=== PATIENT | female | born 1970 | race Caucasian/White ===

== ENCOUNTER 2017-12-15 21:32 | Inpatient (IN) | payer OTHER ==
[~2017-12-15] VITALS: Ht 167.6 cm; Wt 56.5 kg
[2017-12-15] MEDS ORDERED: POTASSIUM CHLORIDE 25 MEQ EFFERVESCENT TAB PO ONE (22:30)
[2017-12-15] MEDS ORDERED: ACETAMINOPHEN 325 MG TAB PO PRN (22:30)
[2017-12-15] MEDS ORDERED: SODIUM CHLORIDE 0.9% FLUSH 10 ML FLUSH IV FLUSH PRN (22:30)
[2017-12-15] MEDS ORDERED: guaiFENesin/DEXTROMETHORPHAN 200 MG/20 MG/10 ML CUP PO PRN (22:30)
[2017-12-15] MEDS ORDERED: RESP: ALBUTEROL 2.5 MG/IPRATROPIUM 0.5 MG NEB (PRN) INH (22:30)
[2017-12-15] MEDS ORDERED: HEPARIN SODIUM - SQ 10,000 UNITS/ML VIAL SQ SCH (23:00)
[2017-12-16] VITALS (24 sets, daily range): BP systolic 109–141; BP diastolic 54–70; PULSE 85–132; RESP 18–45; TEMP 98–98.6; O2SAT 94–100
[2017-12-16] MEDS ORDERED: CHLORHEXIDINE GLUCONATE 2 % 1 PACK (2 CLOTHS)(extra cloths) TOPICAL PRN (03:15)
[2017-12-16] MEDS: RESP: ALBUTEROL 2.5 MG/IPRATROPIUM 0.5 MG NEB (SCH) INH ×8 (03:33→22:00)
[2017-12-16] MEDS: NS + KCL 20 MEQ INJ 1,000 ML IV SCH ×2 (03:41→05:42)
[2017-12-16] MEDS: CHLORHEXIDINE GLUCONATE 2 % 1 PACK (2 CLOTHS)(taper/protocol) TOPICAL SCH (04:00)
[2017-12-16] MEDS ORDERED: KETOROLAC TROMETHAMINE 30 MG/ML (IVP) VIAL IV PUSH PRN (04:15)
--- NOTE | 2017-12-16 04:16 | HHI.HP ---
HPI Service [facility] Hospitalists Primary Care Physician No Primary Care Physician Admission Diagnosis Bilateral pneumonia, sepsis . Diagnoses: (1) Bilateral pneumonia (2) Sepsis (3) Anxiety Chief Complaint: Shortness of breath, chest pain Travel History International Travel<30 Days: No Contact w/Intl Traveler <30 Da: No History of Present Illness Ms. Guzman is a 47-year-old female with a history of anxiety who presented to the emergency room and [place] complaining of chest pain and shortness of breath for 4 days duration. Chest x-ray demonstrated bilateral patchy basilar airspace consolidation most consistent with bronchopneumonia. The patient also met sepsis criteria. She was initially going to be transferred to [facility] in [place], however, due to hypoxic respiratory failure requiring BiPAP, she was transferred to [facility] in [place] and [facility]. The patient is seen in IM. She is temporarily placed on nasal cannula and desaturates to 87 to 88% on 6 L of supplemental oxygen. She is then placed back on BiPAP. She tells me that she has been having chest pain and shortness of breath for the last 4 days. Her chest pain is worse with cough and is constantly there and moderate in severity. It does not come and go. She reports coughing up brown colored sputum which she relates to possibly being from drinking green tea. She states her shortness of breath became so severe that she presented to the emergency room for treatment. Review of Systems Except as stated in HPI: all other systems reviewed are Neg Past Family Social History Past Medical History Anxiety Denies DM, CAD, irregular heart rhythm, respiratory problems, asthma, emphysema , COPD, liver problems, kidney problems, DVT, PE, CVA, seizures, thyroid problems, or cancers . Past Surgical History Cholecystectomy Hysterectomy . Reported Medications Xanax 1 mg p.o. twice daily . Allergies: Coded Allergies: No Known Allergies (Unverified , 12/15/17) Family History Father with heart disease and pneumonia . Social History Tobacco: denies ever smoking Alcohol: does not currently drink Illicit drugs: smoked marijuana when she was younger . Physical Exam Vital Signs Vital Signs Date Time Temp Pulse Resp B/P (MAP) Pulse Ox O2 Delivery O2 Flow Rate FiO2 12/16/17 03:45 108 45 119/70 (86) 94 12/16/17 01:55 94 60 Physical Exam CONSTITUTIONAL: This is a thin, middle-aged female patient, tachypneic and wearing bi-pap. INTEGUMENTARY: No rashes, ecchymoses or lesions. Cool and dry. HEAD: Atraumatic. Normocephalic. No temporal or scalp tenderness. EYES: No scleral icterus. No injection or drainage. ENT: Nose without bleeding, purulent drainage or septal hematoma. NECK: Trachea midline. No JVD or lymphadenopathy. Supple, nontender, no meningeal signs. CARDIOVASCULAR: Regular rate and rhythm without murmurs, gallops, or rubs. RESPIRATORY: Diffuse sonorous rhonchi in upper airways with bibasilar crackles. GASTROINTESTINAL: Abdomen soft, non-tender, nondistended. No guarding. MUSCULOSKELETAL: Extremities without clubbing, cyanosis, or edema. No calf tenderness. NEUROLOGICAL: Awake and alert. Motor and sensory grossly within normal limits. Normal speech. PSYCHIATRIC: Appears quite anxious during visit. . Laboratory Laboratory Tests Test 12/15/17 20:00 12/15/17 21:50 White Blood Count 5.6 TH/MM3 Red Blood Count 5.37 MIL/MM3 Hemoglobin 16.1 GM/DL Hematocrit 45.1 % Mean Corpuscular Volume 84.0 FL Mean Corpuscular Hemoglobin 30.0 PG Mean Corpuscular Hemoglobin Concent 35.7 % Red Cell Distribution Width 12.0 % Platelet Count 185 TH/MM3 Mean Platelet Volume 10.1 FL Immature Granulocyte % (Auto) 0.2 % Neutrophils (%) (Auto) 83.9 % Lymphocytes (%) (Auto) 9.8 % Monocytes (%) (Auto) 5.9 % Eosinophils (%) (Auto) 0.0 % Basophils (%) (Auto) 0.2 % Immature Granulocyte # (Auto) 0.0 TH/MM3 Neutrophils # (Auto) 4.7 TH/MM3 Lymphocytes # (Auto) 0.6 TH/MM3 Monocytes # (Auto) 0.3 TH/MM3 Eosinophils # (Auto) 0.0 TH/MM3 Basophils # (Auto) 0.0 TH/MM3 CBC Comment AUTO DIFF Differential Total Cells Counted 100 Neutrophils % (Manual) 39 % Band Neutrophils % 41 % Lymphocytes % 13 % Monocytes % 3 % Neutrophils # (Manual) 4.7 TH/MM3 Metamyelocytes 3 % Myelocytes 1 % Differential Comment FINAL DIFF MANUAL Platelet Estimate NORMAL Platelet Morphology Comment NORMAL Blood Urea Nitrogen 6 MG/DL Creatinine 0.80 MG/DL Random Glucose 186 MG/DL Total Protein 7.7 GM/DL Albumin 3.2 GM/DL Calcium Level 8.5 MG/DL Alkaline Phosphatase 214 U/L Aspartate Amino Transf (AST/SGOT) 56 U/L Alanine Aminotransferase (ALT/SGPT) 88 U/L Total Bilirubin 0.9 MG/DL Sodium Level 136 MEQ/L Potassium Level 2.9 MEQ/L Chloride Level 101 MEQ/L Carbon Dioxide Level 25.0 MEQ/L Anion Gap 10 MEQ/L Estimat Glomerular Filtration Rate 77 ML/MIN Troponin I LESS THAN 0.02 NG/ML B-Type Natriuretic Peptide 66 PG/ML Lactic Acid Level 1.6 mmol/L Imaging Last Impressions Chest X-Ray 12/15/17 0000 Signed Impressions: Service Date/Time: Friday, December 15, 2017 19:54 - CONCLUSION: 1. Bilateral patchy basilar air space consolidation most characteristic of bronchopneumonia. Malachi Hardin MD . Caprini VTE Risk Assessment Caprini VTE Risk Assessment: Mod/High Risk (score >= 2) Caprini Risk Assessment Model Point Value = 1 Point Value = 2 Point Value = 3 Point Value = 5 Age 41-60 Minor surgery BMI > 25 kg/m2 Swollen legs Varicose veins or History of unexplained or recurrent spontaneous Oral contraceptives or hormone replacement Sepsis (< 1 month) Serious lung disease, including pneumonia (< 1 month) Abnormal pulmonary function Acute myocardial infarction Congestive heart failure (< 1 month) History of inflammatory bowel disease Medical patient at bed rest Age 61-74 Arthroscopic surgery Major open surgery (> 45 min) Laparoscopic surgery (> 45 min) Malignancy Confined to bed (> 72 hours) Immobilizing plaster cast Central venous access Age >= 75 History of VTE Family history of VTE Factor V Leiden Prothrombin [id number] Lupus anticoagulant Anticardiolipin antibodies Elevated serum homocysteine Heparin-induced thrombocytopenia Other congenital or acquired thrombophilia Stroke (< 1 month) Elective arthroplasty Hip, pelvis, or leg fracture Acute spinal cord injury (< 1 month) Prophylaxis Regimen Total Risk Factor Score Risk Level Prophylaxis Regimen 0-1 Low Early ambulation 2 Moderate Order ONE of the following: *Sequential Compression Device (SCD) *Heparin 5000 units SQ BID 3-4 Higher Order ONE of the following medications: *Heparin 5000 units SQ TID *Enoxaparin/Lovenox 40 mg SQ daily (WT < 150 kg, CrCl > 30 mL/min) *Enoxaparin/Lovenox 30 mg SQ daily (WT < 150 kg, CrCl > 10-29 mL/min) *Enoxaparin/Lovenox 30 mg SQ BID (WT < 150 kg, CrCl > 30 mL/min) AND/OR *Sequential Compression Device (SCD) 5 or more Highest Order ONE of the following medications: *Heparin 5000 units SQ TID (Preferred with Epidurals) *Enoxaparin/Lovenox 40 mg SQ daily (WT < 150 kg, CrCl > 30 mL/min) *Enoxaparin/Lovenox 30 mg SQ daily (WT < 150 kg, CrCl > 10-29 mL/min) *Enoxaparin/Lovenox 30 mg SQ BID (WT < 150 kg, CrCl > 30 mL/min) AND *Sequential Compression Device (SCD) Assessment and Plan Problem List: (1) Sepsis ICD Code: A41.9 - Sepsis, unspecified organism (2) Bilateral pneumonia ICD Code: J18.9 - Pneumonia, unspecified organism (3) Anxiety ICD Code: F41.9 - Anxiety disorder, unspecified Assessment and Plan Ms. Guzman is a 47-year-old female with a history of anxiety who presented to the emergency room and [place] complaining of chest pain and shortness of breath for 4 days duration. Chest x-ray demonstrated bilateral patchy basilar airspace consolidation most consistent with bronchopneumonia. The patient also met sepsis criteria. She was initially going to be transferred to [facility] in [place], however, due to hypoxic respiratory failure requiring BiPAP, she was transferred to [facility] in [place] and placed in ICU admitted to [facility] hospitalist group for medical management. Bilateral pneumonia Sepsis - CXR shows bilateral patchy basilar airspace consolidation most consistent with bronchopneumonia - WBC not elevated but patient with significant bandemia, tachycardia, hypoxia, and fever with known infection source - meets sepsis criteria - Negative for flu A&B - Antibiotics: Rocephin and Azithromycin IV - Continue BiPAP at current settings and titrate to maintain oxygen saturation greater than 92% - We will check ABGs - Duo nebulizers every 6 hours around the clock and every 4 hours as needed for wheezing/shortness of breath - Robitussin-DM 10 cc every 4 hours as needed for cough - Monitor vital signs every 4 hours - Initial lactic acid 2.2, 1.6 on recheck - Follow blood culture results and CBC Hypokalemia - Initial potassium 2.9 - IV fluid hydration with normal saline +20 cc of potassium at 125 cc an hour; replaced orally in [place] ED - Recheck BMP in a.m. and follow trends in potassium - Additional replacement is indicated - Continuous cardiac telemetry to monitor for arrhythmias Mild transaminitis of uncertain etiology - AST 56, ALT 88, alkaline phosphatase 214 - Recheck LFTs in a.m. and follow results - Consider hepatitis profile if persistently elevated Anxiety -Xanax 0.5 mg p.o. every 6 hours as needed for anxiety Hyperglycemia of uncertain significance - Initial blood glucose mildly elevated at 186 - Follow serum chemistry for glucose level in a.m. - Consider ordering a hemoglobin A1c - patient denies diabetes Atypical chest pain - musculoskeletal in nature - Initial troponin less than 0.02 and BNP was 66; minimal risk factors for CAD - Reproducible with palpation - Toradol 15 mg IV every 6 hours as needed for pain DVT prophylaxis -Heparin 5000 units subq every 8 hours . Discussed Condition With Dr. Santillan, RN, and patient . Physician Certification 2 Midnight Certification Type: Admission for Inpatient Services Order for Inpatient Services The services are ordered in accordance with Medicare regulations or non- Medicare payer requirements, as applicable. In the case of services not specified as inpatient-only, they are appropriately provided as inpatient services in accordance with the 2-midnight benchmark. Estimated LOS (days): 4 days is the estimated time the patient will need to remain in the hospital, assuming treatment plan goals are met and no additional complications. Post-Hospital Plan: Not yet determined Malina Maurice Dec 16, 2017 04:16
[2017-12-16] MEDS: ALPRAZolam 0.5 MG TAB PO PRN ×2 (04:44→10:48)
[2017-12-16 06:57] LABS: LACTIC ACID SEPSIS PROTOCOL 3.1 mmol/L (0.4-2.0)
[2017-12-16 06:58] LABS: AUTOMATED NEUTROPHIL # 5.6 TH/MM3 (1.8-7.7); BASOPHIL % 0.1 % (0.0-2.0); HEMATOCRIT 41.1 % (35.0-46.0); HEMOGLOBIN 14.4 GM/DL (11.6-15.3); LYMPH % 8.2 % (9.0-44.0); LYMPHOCYTE # 0.5 TH/MM3 (1.0-4.8); MEAN CELL VOLUME 86.6 FL (80.0-100.0); MEAN CORPUSCULAR HEMOGLOBIN 30.3 PG (27.0-34.0); MEAN CORPUSCULAR HGB CONC 34.9 % (32.0-36.0); MEAN PLATELET VOLUME 8.2 FL (7.0-11.0); MONOCYTE # 0.5 TH/MM3 (0-0.9); NEUT % 84.7 % (16.0-70.0); PLATELET COUNT 162 TH/MM3 (150-450); RED BLOOD COUNT 4.75 MIL/MM3 (4.00-5.30); RED CELL DISTRIBUTION WIDTH 12.9 % (11.6-17.2); WHITE BLOOD COUNT 6.6 TH/MM3 (4.0-11.0)
[2017-12-16 07:30] LABS: ALBUMIN 2.4 GM/DL (3.4-5.0); ALT (GPT) 59 U/L (10-53); AST (GOT) 28 U/L (15-37); BICARBONATE 23.4 MEQ/L (21.0-32.0); CALCIUM 7.8 MG/DL (8.5-10.1); CHLORIDE 108 MEQ/L (98-107); CREATININE 0.75 MG/DL (0.50-1.00); GLOMERULAR FILTRATION RATE 83 ML/MIN (>89); GLUCOSE,RANDOM 215 MG/DL (74-106); SODIUM (NA) 141 MEQ/L (136-145)
[2017-12-16 07:36] LABS: ALKALINE PHOSPHATASE 152 U/L (45-117); BLOOD UREA NITROGEN 5 MG/DL (7-18); TOTAL BILIRUBIN ADULT 0.8 MG/DL (0.2-1.0); TOTAL PROTEIN 6.1 GM/DL (6.4-8.2)
[2017-12-16] MEDS ORDERED: guaiFENesin E.R. 600 MG TAB PO SCH (09:15)
[2017-12-16] MEDS ORDERED: MORPHINE SULFATE 2 MG/ML SYRINGE IM PRN (09:15)
[2017-12-16 10:22] LABS: TROPONIN I LESS THAN 0.02 NG/ML (0.02-0.05)
[2017-12-16] MEDS: HEPARIN SODIUM - SQ 10,000 UNITS/ML VIAL SQ SCH ×2 (12:28→20:15)
[2017-12-16] MEDS: SODIUM CHLORIDE 0.9% FLUSH 10 ML FLUSH IV FLUSH SCH ×2 (12:29→20:16)
[2017-12-16] MEDS ORDERED: SODIUM CHLOR 0.9% 1000 ML INJ 1,000 ML IV ONE ×2 (14:00→15:00)
[2017-12-16] MEDS ORDERED: IOHEXOL 350 MG/ML 10 ML VIAL (for RAD DIAG) IVCONTRAST ONE (14:03)
[2017-12-16] MEDS ORDERED: Vancomycin Consult Pharmacy 1 EA OTHER PRN (14:15)
[2017-12-16] MEDS: CEFEPIME INJ 1,000 MG in SODIUM CHLORIDE 0.9% INJ 100 ML IV SCH ×2 (14:17→20:14)
--- NOTE | 2017-12-16 14:19 | RADRPT ---
EXAM DATE/TIME: 12/16/2017 13:49 [place] COMPARISON: No previous studies available for comparison. INDICATIONS : Shortness of breath, bilateral chest pain, cough. IV CONTRAST: 85 cc Omnipaque 350 (iohexol) IV RADIATION DOSE: 15.68 CTDIvol (mGy) MEDICAL HISTORY : Hypertension. SURGICAL HISTORY : Cholecystectomy. Hysterectomy. ENCOUNTER: Initial ACUITY: 1 day PAIN SCALE: 4/10 LOCATION: Bilateral lower chest TECHNIQUE: Volumetric scanning of the chest was performed using a pulmonary embolism protocol MIP images were re constructed. Using automated exposure control and adjustment of the mA and/or kV according to patien t size, radiation dose was kept as low as reasonably achievable to obtain optimal diagnostic quality images. DICOM format image data is available electronically for review and comparison. Follow-up recommendations for detected pulmonary nodules are based at a minimum on nodule size and pa tient risk factors according to Fleischner Society Guidelines. FINDINGS: There is extensive pneumomediastinum which dissects into the lower neck and upper chest. There is a s mall right pneumothorax. No definite left pneumothorax. There is dense consolidation at both lung bases with air bronchograms. They are also cavitary lesions involving the right upper lobe on image #38 measuring 71 cm in diameter in the superior segment left lower lobe on image 43 measuring about 1.8 cm in diameter. There is no significant pleural or pericardial effusion. There is peribronchial thickening and some d istal air way disease at the lung apices. No definite pulmonary embolic disease. No acute findings in the upper abdomen. CONCLUSION: 1. Negative for pulmonary emboli. 2. Dense consolidation in the lungs especially the lung bases with several cavitary lesions as above. Findings are most characteristic of pneumonia. Cannot exclude septic embolic disease. No significant effusion. Malachi Hardin MD on December 16, 2017 at 14:12 Board Certified Radiologist. This report was verified electronically.
--- NOTE | 2017-12-16 14:40 | MB ---
cc: Crystal Magdaleno MD DATE OF CONSULT: HISTORY OF PRESENT ILLNESS: Patient is a 47-year-old female with a history of anxiety disorder, who presented to emergency room at [place] with chest pain and shortness of breath for the past 4 days. Chest x-ray showed bilateral patchy basilar airspace consolidation consistent with bronchial pneumonia. She had elevated lactic acid level of 3.1. ABG from earlier this morning showed a pH of 7.43, CO2 of 31, PAO2 of 62, bicarb 20 and saturation 90% on BiPAP 15/5 with 60% FiO2. She had a repeat ABG on a partial rebreather, which showed hypoxemic respiratory failure. Her D-dimer was elevated at 5.70. Patient was admitted to [facility] ICU under the hospitalist service and pulmonary service was consulted for respiratory failure. When seen, she is tachypneic and tachycardic and is on partial rebreather oxygen. CT angiogram of the chest was ordered by the primary team to rule out pulmonary embolism. She was placed on bronchodilators and broad-spectrum antibiotics. She also reports cough with intermittent hemoptysis. The patient denies any constitutional symptoms. In addition, she denies any chest pain, orthopnea, PND of edema of the lower extremities. Also, she denies nausea, vomiting or any GI symptoms. She denies any exposure to sick contacts. PAST MEDICAL HISTORY: Significant for anxiety disorder. She denies any prior history of COPD, hypertension, coronary artery disease, diabetes mellitus or thromboembolism. PAST SURGICAL HISTORY: Previous cholecystectomy and hysterectomy. MEDICATIONS AT HOME: Xanax. ALLERGIES: NO KNOWN DRUG ALLERGIES. FAMILY HISTORY: Coronary artery disease runs in the family. SOCIAL HISTORY: Nonsmoker, nondrinker. REVIEW OF SYSTEMS: As per HPI. Rest of review of systems unremarkable. PHYSICAL EXAMINATION: GENERAL: A 47-year-old female lying in bed in [id number] respiratory distress. VITAL SIGNS: Temperature 98.6, pulse of 112, respiratory rate of 40s, blood pressure 132/62, saturation 95% on a partial rebreather. HEENT: Atraumatic, normocephalic. Pupils equal, round, reactive to light and accommodation. Extraocular muscles intact. Conjunctivae pink. Nonicteric sclerae. Oral mucosa within normal. NECK: Supple. No JVD, adenopathy or thyromegaly. Trachea in the midline. CARDIOVASCULAR: Tachycardic. Normal S1, S2. No murmurs, rubs or gallops noted. PULMONARY: Bilateral equal air entry with coarse breath sounds at the bases. ABDOMEN: Soft, nontender, no distention. Positive bowel sounds. EXTREMITIES: No cyanosis, clubbing or edema. NEUROLOGIC: No focal or sensory deficit. LABORATORY DATA: Sodium 141, potassium 3.7, chloride 108, CO2 of 23, BUN 5, creatinine 0.75, glucose 215. Lactic acid 3.1. Troponin less than 0.02, total CK 48, BNP 88. WBC 6.6, hemoglobin 14.4, hematocrit 41, platelet count 162. D-dimer 5.70. DIAGNOSTIC DATA: Chest x-ray on arrival showed bilateral patchy basilar airspace disease, characteristics of bronchial pneumonia. IMPRESSION: 1. Acute hypoxemic respiratory failure. 2. Bilateral bronchial pneumonia. 3. Elevated D-dimer. 4. Lactic acidemia. 5. Hyperglycemia. 6. Elevated ALT. 7. Anxiety disorder. RECOMMENDATIONS: 1. Will continue with oxygen and maintain saturation above 92%. 2. Bronchodilators in the form of DuoNeb q. 4 plus q. 2 p.r.n. for shortness of breath. 3. Patient is for CT angiogram of the chest to rule out PE and for further evaluation of the pulmonary parenchyma. 4. Monitor respiratory status closely. If there is any worsening in clinical condition, will need intubation and mechanical ventilation. 5. Continue with Iv fluids and will give NS 1 L bolus x 1. 6. Monitor heart rate and blood pressure. 7. Serial lactic acid monitoring until clear. 8. Continue with antibiotics. She was placed on cefepime and azithromycin. 9. Monitor for signs of infection, which include fever and WBC. 10. Check blood cultures x 2 sets, sputum culture with Gram stain. In addition, will obtain Step pneumonia and Legionella urinary antigen. 11. Check nasal washing to rule out influenza. 12. Continue other medical management per primary team. Further recommendations will be based on hospital course. MD WINNIE Washington/KIANNA , 02:02 PM , 02:40 PM
[2017-12-16] MEDS ORDERED: PROPOFOL 500 MG/50 ML INJ 50 ML ONE (14:44)
[2017-12-16] MEDS ORDERED: SUCCINYLCHOLINE CHLORIDE 100 MG/5 ML SYRINGE IV PUSH ONE (14:45)
[2017-12-16] MEDS ORDERED: fentaNYL CITRATE 250 MCG/5 ML AMP IV PUSH ONE (14:45)
[2017-12-16] MEDS ORDERED: PROPOFOL 200 MG/20 ML AMP IV ONE (14:45)
[2017-12-16] MEDS ORDERED: ROCURONIUM INJ 50 MG/5 ML VIAL IV ONE (14:45)
[2017-12-16] MEDS ORDERED: SUCCINYLCHOLINE CHLORIDE 200 MG/10 ML VIAL ONE (14:50)
[2017-12-16] MEDS ORDERED: RESP: ALBUTEROL 2.5 MG/IPRATROPIUM 0.5 MG NEB (PRN) NEB (15:00)
[2017-12-16] MEDS ORDERED: VANCOMYCIN INJ 1,000 MG in SODIUM CHLOR 0.9% 250 ML INJ 250 ML IV SCH (15:00)
--- NOTE | 2017-12-16 15:22 | PD.PROCEDR ---
Procedure Note Procedure Endotracheal Intubation Diagnosis: Acute hypoxemic respiratory failure Indications: Pneumonia, pneumothorax Consent: Emergent, discussed with patient Anesthesia: see MAR Description of the Procedure: The patient was positioned in the sniffing position. Pre-oxygenation was performed using a 100% BVM. Anesthesia was induced via rapid sequence. A Glidescope 3 was used for laryngoscopy and a Grade 1 view was obtained. A 8.0 cuffed endotracheal tube was inserted atraumatically through the vocal cords. Confirmation of correct endotracheal tube placement was made by equal and bilateral breath sounds and colorimetric CO2 detection. The endotracheal tube was secured at 23 cm at the teeth. There were no immediate complications noted. The patient remained hemodynamically stable throughout the procedure. A chest x-ray has been ordered. I personally performed the procedure. Vida Klein MD Dec 16, 2017 15:22
--- NOTE | 2017-12-16 15:37 | PD.CONS ---
[facility] Service Critical Care Medicine Consult Requested By Dr. Rogers Reason for Consult Acute hypoxic respiratory failure Primary Care Physician No Primary Care Physician History of Present Illness This is a 47-year-old female with a history of anxiety disorder, that presented to [place] on with complaints of chest pain and dyspnea that has been lasting for the past 4 days. The patient was transferred to [facility]. Imaging and laboratory studies were initially performed which showed a chest x-ray with bilateral patchy airspace consolidation consistent with bronchial pneumonia, and her lactic acid level was noted to be 3.1. The patient's oxygen requirements continue to increase the patient became tachypneic with a respiratory rate in the 40s and tachycardic, heart rate in the 120s. Pulmonology was consulted, CT was performed which revealed no pulmonary emboli , will several cavitary lesions, dense consolidation at both lung bases, air bronchograms and extensive pneumomediastinum extending into the lower neck and upper chest .ICU was requested to see patient. Upon observation the patient was severely dyspneic, with significant accessory muscle movement, violently coughing hemoptysis. Decision made to intubate patient for airway protection. Bronchoscopy pending. Review of Systems ROS 12 point review of systems done with the patient negative except for pertinent positives mentioned in the above history and physical Past Family Social History Allergies: Coded Allergies: No Known Allergies (Unverified , 12/15/17) Past Surgical History Cholecystectomy, hysterectomy Reported Medications Reviewed Active Ordered Medications see MAR Family History Coronary artery disease Social History Denies alcohol or illicit drug use. Reports that she smokes marijuana. Physical Exam Vital Signs Vital Signs Date Time Temp Pulse Resp B/P (MAP) Pulse Ox O2 Delivery O2 Flow Rate FiO2 12/16/17 12:00 112 12/16/17 12:00 98.6 112 43 133/62 (85) 95 12/16/17 11:11 96 60 12/16/17 10:52 47 12/16/17 10:00 99 12/16/17 08:00 97 60 12/16/17 08:00 106 12/16/17 07:00 98.0 106 45 141/62 (88) 96 12/16/17 06:00 98 12/16/17 06:00 98 12/16/17 05:45 99 12/16/17 05:30 97 12/16/17 05:15 102 12/16/17 05:00 112 12/16/17 04:45 110 12/16/17 04:15 105 12/16/17 04:15 105 12/16/17 04:00 113 12/16/17 04:00 113 12/16/17 03:45 108 45 119/70 (86) 94 12/16/17 03:45 108 12/16/17 03:45 108 12/16/17 01:55 94 60 Physical Exam GENERAL: This is a well-developed well-nourished female in severe respiratory distress, violently coughing continuously hemoptysis SKIN: Warm and dry. Febrile HEAD: Atraumatic. Normocephalic. EYES: Pupils equal and round. No scleral icterus. No injection or drainage. Pupils 3 mm and brisk ENT: No nasal bleeding or discharge. Mucous membranes pink and moist. Uvula midline. Mallampati classification 1 NECK: Trachea midline,no deviation noted. No JVD. CARDIOVASCULAR: Tachycardic rate, regular rhythm. RESPIRATORY: Significant accessory muscle use. Coarse rhonchi throughout. Breath sounds equal bilaterally. GASTROINTESTINAL: Abdomen soft, non-tender, nondistended. No guarding. Bowel sounds active MUSCULOSKELETAL: Extremities without clubbing, cyanosis, or edema. No obvious deformities. NEUROLOGICAL: GCS 15 Awake and alert. RASS 0. No gross focal/sensory deficits. Follows commands in all 4 extremities, prior to intubation Laboratory Laboratory Tests Test 12/16/17 01:30 12/16/17 04:52 12/16/17 06:05 12/16/17 09:33 Nasal Screen MRSA (PCR) MRSA DETECTED Blood Gas Puncture Site RT RADIAL Blood Gas Patient Temperature 98.6 Blood Gas HCO3 20 Blood Gas Base Excess -3.6 Blood Gas Oxygen Saturation 90 Arterial Blood pH 7.43 Arterial Blood Partial Pressure CO2 31 Arterial Blood Partial Pressure O2 62 Arterial Blood Oxygen Content 18.5 Arterial Blood Carboxyhemoglobin 0.5 Arterial Blood Methemoglobin 1.1 Blood Gas Hemoglobin 14.6 Oxygen Delivery Device BIPAP Blood Gas Ventilator Setting 15/5 Blood Gas Inspired Oxygen 60 White Blood Count 6.6 Red Blood Count 4.75 Hemoglobin 14.4 Hematocrit 41.1 Mean Corpuscular Volume 86.6 Mean Corpuscular Hemoglobin 30.3 Mean Corpuscular Hemoglobin Concent 34.9 Red Cell Distribution Width 12.9 Platelet Count 162 Mean Platelet Volume 8.2 Neutrophils (%) (Auto) 84.7 Lymphocytes (%) (Auto) 8.2 Monocytes (%) (Auto) 7.0 Eosinophils (%) (Auto) 0.0 Basophils (%) (Auto) 0.1 Neutrophils # (Auto) 5.6 Lymphocytes # (Auto) 0.5 Monocytes # (Auto) 0.5 Eosinophils # (Auto) 0.0 Basophils # (Auto) 0.0 CBC Comment DIFF FINAL Differential Comment Blood Urea Nitrogen 5 Creatinine 0.75 Random Glucose 215 Total Protein 6.1 Albumin 2.4 Calcium Level 7.8 Alkaline Phosphatase 152 Aspartate Amino Transf (AST/SGOT) 28 Alanine Aminotransferase (ALT/SGPT) 59 Total Bilirubin 0.8 Sodium Level 141 Potassium Level 3.7 Chloride Level 108 Carbon Dioxide Level 23.4 Anion Gap 10 Estimat Glomerular Filtration Rate 83 Lactic Acid Level 3.1 B-Type Natriuretic Peptide 88 D-Dimer Quantitative (PE/DVT) 5.70 Total Creatine Kinase 48 Troponin I LESS THAN 0.02 Test 12/16/17 11:15 12/16/17 13:12 Lactic Acid Level 3.1 Blood Gas Puncture Site LT RADIAL Blood Gas Patient Temperature 98.6 Blood Gas HCO3 21 Blood Gas Base Excess -2.7 Blood Gas Oxygen Saturation 90 Arterial Blood pH 7.46 Arterial Blood Partial Pressure CO2 30 Arterial Blood Partial Pressure O2 60 Arterial Blood Oxygen Content 17.5 Arterial Blood Carboxyhemoglobin 0.6 Arterial Blood Methemoglobin 1.1 Blood Gas Hemoglobin 13.9 Oxygen Delivery Device Partial Rebreather Blood Gas Liter Flow 15 Result Diagram: 12/16/17 0605 12/16/17 [address] Angiography 12/16/17 0000 Signed Impressions: Service Date/Time: Saturday, December 16, 2017 13:49 - CONCLUSION: 1. Negative for pulmonary emboli. 2. Dense consolidation in the lungs especially the lung bases with several cavitary lesions as above. Findings are most characteristic of pneumonia. Cannot exclude septic embolic disease. No significant effusion. Malachi Hardin MD Septic Shock Reassessment Septic shock perfusion: reassessment completed Assessment and Plan Problem List: (1) Anxiety ICD Code: F41.9 - Anxiety disorder, unspecified Status: Chronic (2) Sepsis ICD Code: A41.9 - Sepsis, unspecified organism Status: Acute (3) Bilateral pneumonia ICD Code: J18.9 - Pneumonia, unspecified organism Status: Acute Assessment and Plan Assessment This is a 47-year-old female in acute hypoxia respiratory failure , secondary to pneumonia , pulmonary cavitary lesions, and pneumomediastinum requiring intubation. The patient is critically ill. Plan by systems: Neurologic: Anxiety disorder Febrile illness Provide propofol and fentanyl infusions to maintain ventilator synchrony Daily sedation vacation until stable Temperature 102.0 Tylenol for fever, and pain 1-5 By mouth Xanax 0.25 mg, placed on hold Apply cooling blanket and Tylenol insufficient and patient's temperature continues to be elevated Respiratory: Acute hypoxemic respiratory failure Small right Pneumothorax Pneumomediastinum Hemoptysis Maintain O2 saturation greater than 92% Initial peak pressure on mechanical ventilation 31, continue to closely monitor Continue FiO2 at 100% currently 12/16 -CT Angio - extensive pneumomediastinum extending into neck and upper chest. Dense consolidation at both lung bases, air bronchograms , 2 cavitary lesions Ventilator bundle Duo nebs every 6 hours scheduled every 2 hours PRN Pulmonology following 12/16-bronchoscopy performed, no active sites noted for bleeding, moderate purulent mucus bilaterally noted 2 BAL samples sent Consult cardiothoracic surgery Cardiovascular: Sinus tachycardia-most likely secondary to sepsis Maintain MAP greater than 65mmHG-currently hemodynamically stable Provide vasopressor support if needed Follow-up cardiothoracic surgery recommendations Obtain echo in a.m. Renal: Insert [place] -- Strict I/Os FEN/GI: Maintain NPO status for now Patient bolused 2 L normal saline now NSS 84/hr Dietary consult for tube feeds Bowel regimen Zofran for nausea Famotidine GI prophylaxis Heme/ID: Monitor CBC Follow-up blood urine and sputum cultures Follow-up BAL cultures Obtained influenza, pneumococcal and Legionella antigens Empiric antibiotics initiated cefepime, azithromycin and vancomycin (day 1) ID consulted follow-up recommendations Obtain INR Serial lactates until cleared Endocrine: Glucose monitoring per ICU protocol-low dose regimen -- SSI Prophylaxis: GI Prophylaxis Famotidine IV DVT Prophylaxis -- SCDs Follow-up INR results-then initiate heparin SQ Lines: Peripheral IVs providing adequate access. Central line if indicated Dispo: my billing statement This patient remains critically ill with one or more organ systems which are or may become a threat to life. I have spent in excess of 60 minutes discontinuously in the care and management of this patient. This time is exclusive of procedures, and includes, but is not limited to, evaluation of the patient, review of the medical record, discussions with family, consultants, nursing staff, or respiratory therapy, and documentation in the medical record. Code Status Full Discussed Condition With Dr. Magdaleno, , patient and RN CVOR at bedside ( Cici Leger) Problem Qualifiers (1) Sepsis: Qualified Codes: A41.9 - Sepsis, unspecified organism Vida Klein MD Dec 16, 2017 15:37
[2017-12-16] MEDS: PROPOFOL 1000 MG/100 ML INJ 100 ML IV PRN (16:00)
[2017-12-16] MEDS ORDERED: VANCOMYCIN 1,500 MG/NS 500 ML IV ONE ×2 (16:00)
--- NOTE | 2017-12-16 16:03 | RADRPT ---
EXAM DATE/TIME: 12/16/2017 15:22 [facility] COMPARISON: No previous studies available for comparison. INDICATIONS : E-T tube placement. MEDICAL HISTORY : Hypertension. SURGICAL HISTORY : Cholecystectomy. Hysterectomy. ENCOUNTER: Initial ACUITY: 1 day PAIN SCORE: Non-responsive. LOCATION: Bilateral chest FINDINGS: Endotracheal tube in good position. There is extensive pneumomediastinum and air dissecting into the upper chest and lower neck. Dense consolidation at both lung bases and patchy airspace disease in the upper lungs. Mild cardiomegaly. No significant effusion. CONCLUSION: 1. Endotracheal tube in good position. Extensive pneumomediastinum. Dense consolidation in the lungs. Malachi Hardin MD on December 16, 2017 at 16:00 Board Certified Radiologist. This report was verified electronically.
--- NOTE | 2017-12-16 16:17 | PD.PROCEDR ---
Procedure Note Procedure Procedure: Fiberoptic Bronchoscopy Diagnosis: Acute hypoxemic respiratory failure, pneumonia, hemoptysis Indications: Same Consent: Emergent but obtained from patient, prior to intubation Anesthesia: Description of the Procedure: The patient was sedated and mechanically ventilated. The patient was placed on 100% FIO2 and a volume control mode of ventilation. The fiberoptic bronchoscopy was inserted via [ ]. The trachea, right and left mainstem bronchi, and sub-segmental bronchi were evaluated. The endobronchial anatomy was normal. Findings: No active sites of bleeding, purulent mucus, moderate BAL samples: 2 The patient tolerated the procedure well with no hemodynamic instability or hypoxia. There were no immediate complications noted. At the conclusion of the procedure, the patient was placed back on their pre-procedure ventilatory settings. There was minimal EBL. A chest x-ray has been ordered. I personally performed the procedure. Vida Klein MD Dec 16, 2017 16:17
[2017-12-16] MEDS ORDERED: ONDANSETRON HCL 4 MG/2 ML VIAL IV PUSH PRN (16:30)
[2017-12-16] MEDS: fentaNYL DRIP 250 ML IV PRN (16:30)
[2017-12-16] MEDS ORDERED: LACTULOSE SYRUP 20 GM/30 ML CUP PO PRN (16:45)
[2017-12-16] MEDS ORDERED: CHLORHEXIDINE GLUCONATE 2 % 1 PACK (2 CLOTHS) TOP PRN (16:45)
[2017-12-16] MEDS ORDERED: NURSING INFORMATION XX SCH (16:45)
[2017-12-16] MEDS ORDERED: MAGNESIUM HYDROXIDE SUSP 30 ML CUP PO PRN (16:45)
[2017-12-16] MEDS ORDERED: SENNOSIDES 8.6 MG TAB PO PRN (16:45)
[2017-12-16] MEDS ORDERED: BISACODYL 10 MG SUPP RECTAL PRN (16:45)
--- NOTE | 2017-12-16 16:58 | PD.CONS ---
History of Present Illness Service Infectious disease Consult Requested By Dr Magdaleno Reason for Consult Evaluate patient with pneumonia Primary Care Physician No Primary Care Physician Diagnoses: History of Present Illness Patient seen and examined. Records reviewed. Patient is a 47-year-old female, who initially presented to the [facility] ED complaining of 4 day history of chest pain and shortness of breath. In have any other history. She was apparently coughing and was bringing up some brownish phlegm. There was no mention of any fever or chills. No nausea or vomiting. No urinary complaints. Chest x-ray showed bilateral patchy basilar infiltrates. CTA did not show any pulmonary embolism, showed bilateral infiltrates with some cavitary lesions noted. She was transferred to the main hospital, and she apparently had some blood in the sputum. She ended up getting intubated. [facility] did bronchoscopy on her. Patient currently sedated postintubation. Her blood pressure is okay and she is not hypotensive. She is tachycardic. Infectious disease consultation has been requested to evaluate the patient with pneumonia Review of Systems ROS Limitations: Clinical Condition, Intubated Past Family Social History Allergies: Coded Allergies: No Known Allergies (Unverified , 12/15/17) Past Medical History Anxiety Past Surgical History Cholecystectomy Hysterectomy Active Ordered Medications Current Medications Medications (Trade) Dose Ordered Sig/Marily Route Start Time Stop Time Status Last Admin (NS Flush) 2 ml UNSCH PRN IV FLUSH 12/15/17 22:30 (NS Flush) 2 ml BID IV FLUSH 12/16/17 09:00 12/16/17 12:29 Azithromycin 500 mg/Sodium Chloride 250 ml @ 250 mls/hr Q24H IV 12/16/17 22:00 (Tylenol) 650 mg Q4H PRN PO 12/15/17 22:30 12/16/17 13:33 (Robitussin Dm 200-20 Mg/10 ml Liq) 10 ml Q4H PRN PO 12/15/17 22:30 Future Hold Potassium Chloride/Sodium Chloride 1,000 ml @ 100 mls/hr Q10H IV 12/15/17 23:00 12/16/17 03:41 Miscellaneous Information Patient in critical care unit? Ass... [id number] .XX 12/16/17 03:15 (Chlorhexidine 2% Cloth) 3 pack DAILY@04 TOPICAL 12/16/17 04:00 12/20/17 04:01 12/16/17 04:00 (Chlorhexidine 2% Cloth) 3 pack UNSCH PRN TOPICAL 12/16/17 03:15 12/21/17 03:14 (Toradol Inj) 15 mg Q6HR PRN IV PUSH 12/16/17 04:15 12/21/17 04:14 12/16/17 07:12 (Heparin Inj) 5,000 units Q8H SQ 12/16/17 12:00 12/16/17 12:28 (Morphine Inj) 1 mg Q4H PRN IM 12/16/17 09:15 Future Hold 12/16/17 10:11 (Duoneb Neb) 1 ampule Q4HR NEB INH 12/16/17 12:00 12/16/17 16:22 (Mucinex Er) 600 mg BID PO 12/16/17 09:15 Future Hold 12/16/17 10:51 Cefepime HCl 1000 mg/Sodium Chloride 100 ml @ 200 mls/hr Q8H IV 12/16/17 14:00 12/16/17 14:17 Pharmacy Profile Note 0 ml @ 0 mls/hr UNSCH PRN OTHER 12/16/17 14:15 Propofol 100 ml @ 2.1 mls/hr TITRATE PRN IV 12/16/17 14:45 Vancomycin HCl 1500 mg/Sodium Chloride 515 ml @ 257.5 mls/ hr Q12H ONCE IV 12/16/17 16:00 12/16/17 17:59 Miscellaneous Information SPECIFIC LAB TO BE ANABELLA... ONCE ONCE .XX 12/18/17 03:45 12/18/17 03:46 (Duoneb Neb) 1 ampule Q6HR NEB INH 12/16/17 15:00 (Duoneb Neb) 1 ampule Q2HR NEB PRN NEB 12/16/17 15:00 Fentanyl Citrate 250 ml @ 5 mls/hr TITRATE PRN IV 12/16/17 16:30 Sodium Chloride 1,000 ml @ 84 mls/hr [id number] IV 12/16/17 17:00 (Zofran Inj) 4 mg Q6HR PRN IV PUSH 12/16/17 16:30 (Pepcid Inj) 20 mg Q12H IV PUSH 12/16/17 17:00 Family History Unobtainable Social History Tobacco: denies ever smoking Alcohol: does not currently drink Illicit drugs: smoked marijuana when she was younger Physical Exam Vital Signs Vital Signs Date Time Temp Pulse Resp B/P (MAP) Pulse Ox O2 Delivery O2 Flow Rate FiO2 12/16/17 16:23 98 100 12/16/17 15:44 96 100 12/16/17 15:23 100 100 12/16/17 12:00 112 12/16/17 12:00 98.6 112 43 133/62 (85) 95 12/16/17 11:11 96 60 12/16/17 10:52 47 12/16/17 10:00 99 12/16/17 08:00 97 60 12/16/17 08:00 106 12/16/17 07:00 98.0 106 45 141/62 (88) 96 12/16/17 06:00 98 12/16/17 06:00 98 12/16/17 05:45 99 12/16/17 05:30 97 12/16/17 05:15 102 12/16/17 05:00 112 12/16/17 04:45 110 12/16/17 04:15 105 12/16/17 04:15 105 12/16/17 04:00 113 12/16/17 04:00 113 12/16/17 03:45 108 45 119/70 (86) 94 12/16/17 03:45 108 12/16/17 03:45 108 12/16/17 01:55 94 60 Physical Exam GENERAL: Patient is a well-nourished, well-developed female, sedated on the vent, not in respiratory distress. SKIN: Warm and dry. No generalized rash, no ecchymoses and no evidence of embolic lesions. HEAD: Atraumatic. Normocephalic. No temporal wasting, or tenderness. EYES: Agency conjunctiva. No petechia or hemorrhage. Pupils equal, round and reactive to light. No scleral icterus. No injection or drainage. EARS, NOSE AND THROAT: Nose without bleeding or purulent nasal discharge. She is orally intubated. Mucous membranes pink and moist. NECK: Trachea midline. Supple and not tender, no meningeal signs CARDIOVASCULAR: Regular rate and rhythm. No murmurs, rubs or gallops heard RESPIRATORY: Coarse breath sounds bilaterally, with scattered rales. No wheezing. ABDOMEN: Soft, non-tender, nondistended. Bowel sounds present and normoactive. No guarding. No rebound. No organomegaly. EXTREMITIES: No clubbing, cyanosis, or edema. No joint effusion, has good ROM. No calf tenderness. Well perfused and warm. NEUROLOGICAL: Sedated. No Babinski or ankle clonus. PSYCHIATRIC: Unable to assess LINE: No evidence of infection Laboratory Laboratory Tests Test 12/16/17 01:30 12/16/17 04:52 12/16/17 06:05 12/16/17 09:33 Nasal Screen MRSA (PCR) MRSA DETECTED Blood Gas Puncture Site RT RADIAL Blood Gas Patient Temperature 98.6 Blood Gas HCO3 20 Blood Gas Base Excess -3.6 Blood Gas Oxygen Saturation 90 Arterial Blood pH 7.43 Arterial Blood Partial Pressure CO2 31 Arterial Blood Partial Pressure O2 62 Arterial Blood Oxygen Content 18.5 Arterial Blood Carboxyhemoglobin 0.5 Arterial Blood Methemoglobin 1.1 Blood Gas Hemoglobin 14.6 Oxygen Delivery Device BIPAP Blood Gas Ventilator Setting 15/5 Blood Gas Inspired Oxygen 60 White Blood Count 6.6 Red Blood Count 4.75 Hemoglobin 14.4 Hematocrit 41.1 Mean Corpuscular Volume 86.6 Mean Corpuscular Hemoglobin 30.3 Mean Corpuscular Hemoglobin Concent 34.9 Red Cell Distribution Width 12.9 Platelet Count 162 Mean Platelet Volume 8.2 Neutrophils (%) (Auto) 84.7 Lymphocytes (%) (Auto) 8.2 Monocytes (%) (Auto) 7.0 Eosinophils (%) (Auto) 0.0 Basophils (%) (Auto) 0.1 Neutrophils # (Auto) 5.6 Lymphocytes # (Auto) 0.5 Monocytes # (Auto) 0.5 Eosinophils # (Auto) 0.0 Basophils # (Auto) 0.0 CBC Comment DIFF FINAL Differential Comment Blood Urea Nitrogen 5 Creatinine 0.75 Random Glucose 215 Total Protein 6.1 Albumin 2.4 Calcium Level 7.8 Alkaline Phosphatase 152 Aspartate Amino Transf (AST/SGOT) 28 Alanine Aminotransferase (ALT/SGPT) 59 Total Bilirubin 0.8 Sodium Level 141 Potassium Level 3.7 Chloride Level 108 Carbon Dioxide Level 23.4 Anion Gap 10 Estimat Glomerular Filtration Rate 83 Lactic Acid Level 3.1 B-Type Natriuretic Peptide 88 D-Dimer Quantitative (PE/DVT) 5.70 Total Creatine Kinase 48 Troponin I LESS THAN 0.02 Test 12/16/17 11:15 12/16/17 13:12 Lactic Acid Level 3.1 Blood Gas Puncture Site LT RADIAL Blood Gas Patient Temperature 98.6 Blood Gas HCO3 21 Blood Gas Base Excess -2.7 Blood Gas Oxygen Saturation 90 Arterial Blood pH 7.46 Arterial Blood Partial Pressure CO2 30 Arterial Blood Partial Pressure O2 60 Arterial Blood Oxygen Content 17.5 Arterial Blood Carboxyhemoglobin 0.6 Arterial Blood Methemoglobin 1.1 Blood Gas Hemoglobin 13.9 Oxygen Delivery Device Partial Rebreather Blood Gas Liter Flow 15 Result Diagram: 12/16/17 0605 12/16/17 0605 Imaging RADIOLOGY STUDIES/FILMS REVIEWED Chest X-Ray 12/16/17 0000 Signed Impressions: Service Date/Time: Saturday, December 16, 2017 15:22 - CONCLUSION: 1. Endotracheal tube in good position. Extensive pneumomediastinum. Dense consolidation in the lungs. Malachi Hardin MD CT Angiography 12/16/17 0000 Signed Impressions: Service Date/Time: Saturday, December 16, 2017 13:49 - CONCLUSION: 1. Negative for pulmonary emboli. 2. Dense consolidation in the lungs especially the lung bases with several cavitary lesions as above. Findings are most characteristic of pneumonia. Cannot exclude septic embolic disease. No significant effusion. Malachi Hardin MD Assessment and Plan Assessment and Plan IMPRESSION Sepsis present on admission Bilateral pneumonia, some with cavitation Respiratory failure RECOMMENDATION Urine for legio and pneumo Ag Check cultures: BC, sputum and urine Cefepime, Vanco and Zithromax Follow C/S and adjust Abx Monitor progress Will determine course of Abx ocne work-up and cultures completed I will follow along with you Thank you for this consultation Liliam Su MD Dec 16, 2017 16:58
--- NOTE | 2017-12-16 17:16 | RADRPT ---
EXAM DATE/TIME: 12/16/2017 16:35 [facility] COMPARISON: No previous studies available for comparison. INDICATIONS : Short of breath, POST bronch. MEDICAL HISTORY : Hypertension. SURGICAL HISTORY : Cholecystectomy. ENCOUNTER: Subsequent ACUITY: 2 days PAIN SCORE: 0/10 LOCATION: Bilateral chest FINDINGS: Basilar consolidation persists. Pneumomediastinum noted. No significant pneumothorax post bronchoscop y. Endotracheal tube unchanged. CONCLUSION: 1. No significant pneumothorax identified on plain film post bronchoscopy. Endotracheal tube and basi lar airspace disease not significantly changed. Malachi Hardin MD on December 16, 2017 at 17:13 Board Certified Radiologist. This report was verified electronically.
[2017-12-16 17:41] LABS: BILIRUBIN, URINE NEG (NEG); BLOOD, URINE TRACE (NEG); GLUCOSE,URINE TRACE mg/dL (NEG); KETONE, URINE NEG (NEG); NITRITE,URINE NEG (NEG); PH, URINE 6.5 (5.0-8.5); SQUAMOUS EPITHELIAL CELL URINE 1 /hpf (0-5); URINE COLOR YELLOW (YELLW/STRAW); URINE LEUKOCYTE ESTERASE NEG (NEG)
[2017-12-16 17:50] LABS: INTERNATIONAL NORMALIZED RATIO 1.1 RATIO; PROTHROMBIN TIME - PATIENT 11.4 SEC (9.8-11.6)
--- NOTE | 2017-12-16 18:03 | HHI.PR ---
Subjective Remarks This is a pleasant 47 y/o Female admitted today she has Anxiety disorder, came to ER due to Shortness of breath, Chest x-ray demonstrated bilateral patchy basilar airspace consolidation most consistent with bronchopneumonia. patient septic, respiratory failure, I was called by nurse the patient was on BiPAP and continue with desaturation. antibiotics changed to Cefepime and Azithromycin. discussed with Pulmonary and interactive media marketing specialist Doctor Sharla. will take the case from now, asked for blood cultures, Legionella antigen, Pneumococcal antigen, switch to Cefepime IV, consult sheepskin pickler and building performance specialist. Objective Vital Signs Date Time Temp Pulse Resp B/P (MAP) Pulse Ox O2 Delivery O2 Flow Rate FiO2 12/16/17 17:20 98 80 12/16/17 16:23 98 100 12/16/17 15:44 96 100 12/16/17 15:23 100 100 12/16/17 12:00 112 12/16/17 12:00 98.6 112 43 133/62 (85) 95 12/16/17 11:11 96 60 12/16/17 10:52 47 12/16/17 10:00 99 12/16/17 08:00 97 60 12/16/17 08:00 106 12/16/17 07:00 98.0 106 45 141/62 (88) 96 12/16/17 06:00 98 12/16/17 06:00 98 12/16/17 05:45 99 12/16/17 05:30 97 12/16/17 05:15 102 12/16/17 05:00 112 12/16/17 04:45 110 12/16/17 04:15 105 12/16/17 04:15 105 12/16/17 04:00 113 12/16/17 04:00 113 12/16/17 03:45 108 45 119/70 (86) 94 12/16/17 03:45 108 12/16/17 03:45 108 12/16/17 01:55 94 60 I/O 12/15/17 12/15/17 12/15/17 12/16/17 12/16/17 12/16/17 07:00 15:00 23:00 07:00 15:00 23:00 Output Total 500 ml Balance -500 ml Output Urine Total 500 ml # Bowel Movements 2 Result Diagram: 12/16/17 0605 12/16/17 0605 Imaging Last Impressions Chest X-Ray 12/16/17 0000 Signed Impressions: Service Date/Time: Saturday, December 16, 2017 16:35 - CONCLUSION: 1. No significant pneumothorax identified on plain film post bronchoscopy. Endotracheal tube and basilar airspace disease not significantly changed. Malachi Hardin MD CT Angiography 12/16/17 0000 Signed Impressions: Service Date/Time: Saturday, December 16, 2017 13:49 - CONCLUSION: 1. Negative for pulmonary emboli. 2. Dense consolidation in the lungs especially the lung bases with several cavitary lesions as above. Findings are most characteristic of pneumonia. Cannot exclude septic embolic disease. No significant effusion. Malachi Hardin MD Procedures BiPAP Other Results Laboratory Tests Test 12/16/17 01:30 12/16/17 06:05 12/16/17 09:33 12/16/17 13:12 Nasal Screen MRSA (PCR) MRSA DETECTED White Blood Count 6.6 TH/MM3 Red Blood Count 4.75 MIL/MM3 Hemoglobin 14.4 GM/DL Hematocrit 41.1 % Mean Corpuscular Volume 86.6 FL Mean Corpuscular Hemoglobin 30.3 PG Mean Corpuscular Hemoglobin Concent 34.9 % Red Cell Distribution Width 12.9 % Platelet Count 162 TH/MM3 Mean Platelet Volume 8.2 FL Neutrophils (%) (Auto) 84.7 % Lymphocytes (%) (Auto) 8.2 % Monocytes (%) (Auto) 7.0 % Eosinophils (%) (Auto) 0.0 % Basophils (%) (Auto) 0.1 % Neutrophils # (Auto) 5.6 TH/MM3 Lymphocytes # (Auto) 0.5 TH/MM3 Monocytes # (Auto) 0.5 TH/MM3 Eosinophils # (Auto) 0.0 TH/MM3 Basophils # (Auto) 0.0 TH/MM3 CBC Comment DIFF FINAL Differential Comment Blood Urea Nitrogen 5 MG/DL Creatinine 0.75 MG/DL Random Glucose 215 MG/DL Total Protein 6.1 GM/DL Albumin 2.4 GM/DL Calcium Level 7.8 MG/DL Alkaline Phosphatase 152 U/L Aspartate Amino Transf (AST/SGOT) 28 U/L Alanine Aminotransferase (ALT/SGPT) 59 U/L Total Bilirubin 0.8 MG/DL Sodium Level 141 MEQ/L Potassium Level 3.7 MEQ/L Chloride Level 108 MEQ/L Carbon Dioxide Level 23.4 MEQ/L Anion Gap 10 MEQ/L Estimat Glomerular Filtration Rate 83 ML/MIN B-Type Natriuretic Peptide 88 PG/ML D-Dimer Quantitative (PE/DVT) 5.70 MG/L FEU Total Creatine Kinase 48 U/L Troponin I LESS THAN 0.02 NG/ML Blood Gas Liter Flow 15 L/M Test 12/16/17 16:50 12/16/17 16:52 12/16/17 17:11 Urine Color YELLOW Urine Turbidity CLEAR Urine pH 6.5 Urine Specific [place] GREATER THAN 1.050 Urine Protein 30 mg/dL Urine Glucose (UA) TRACE mg/dL Urine Ketones NEG mg/dL Urine Occult Blood TRACE Urine Nitrite NEG Urine Bilirubin NEG Urine Urobilinogen LESS THAN 2.0 MG/DL Urine Leukocyte Esterase NEG Urine RBC 3 /hpf Urine WBC 1 /hpf Urine Squamous Epithelial Cells 1 /hpf Microscopic Urinalysis Comment CATH-CULT NOT IND Urine Opiates Screen NEG Urine Barbiturates Screen NEG Urine Amphetamines Screen NEG Urine Benzodiazepines Screen POS Urine Cocaine Screen NEG Urine Cannabinoids Screen POS Blood Gas Puncture Site LT RADIAL Blood Gas Patient Temperature 98.6 Blood Gas HCO3 20 mmol/L Blood Gas Base Excess -5.7 mmol/L Blood Gas Oxygen Saturation 96 % Arterial Blood pH 7.27 Arterial Blood Partial Pressure CO2 45 mmHg Arterial Blood Partial Pressure O2 123 mmHg Arterial Blood Oxygen Content 17.6 Vol % Arterial Blood Carboxyhemoglobin 0.2 % Arterial Blood Methemoglobin 1.2 % Blood Gas Hemoglobin 12.9 G/DL Oxygen Delivery Device VENTILATOR Blood Gas Ventilator Setting SEE COMMENTS Blood Gas Inspired Oxygen 100 % Prothrombin Time 11.4 SEC Prothromb Time International Ratio 1.1 RATIO Objective Remarks CONSTITUTIONAL: Moderate respiratory distress, speaking in full sentences. INTEGUMENTARY: No rashes, ecchymoses or lesions. Cool and dry. HEAD: Atraumatic. Normocephalic. No temporal or scalp tenderness. EYES: No scleral icterus. No injection or drainage. ENT: Nose without bleeding, purulent drainage or septal hematoma. NECK: Trachea midline. No JVD or lymphadenopathy. Supple, nontender, no meningeal signs. CARDIOVASCULAR: Regular rate and rhythm without murmurs, gallops, or rubs. RESPIRATORY: Decreased breath sounds bilateral, mild expiratory wheezing, bilateral base crackles. GASTROINTESTINAL: Abdomen soft, non-tender, nondistended. No guarding. MUSCULOSKELETAL: Extremities without clubbing, cyanosis, or edema. No calf tenderness. NEUROLOGICAL: Awake and alert. Motor and sensory grossly within normal limits. Normal speech. PSYCHIATRIC: Appears quite anxious during visit. . Medications and IVs Current Medications Medications (Trade) Dose Ordered Sig/Marily Route Start Time Stop Time Status Last Admin (NS Flush) 2 ml UNSCH PRN IV FLUSH 12/15/17 22:30 (NS Flush) 2 ml BID IV FLUSH 12/16/17 09:00 12/16/17 12:29 Azithromycin 500 mg/Sodium Chloride 250 ml @ 250 mls/hr Q24H IV 12/16/17 22:00 (Robitussin Dm 200-20 Mg/10 ml Liq) 10 ml Q4H PRN PO 12/15/17 22:30 Future Hold Potassium Chloride/Sodium Chloride 1,000 ml @ 100 mls/hr Q10H IV 12/15/17 23:00 12/16/17 03:41 (Chlorhexidine 2% Cloth) 3 pack DAILY@04 TOPICAL 12/16/17 04:00 12/20/17 04:01 12/16/17 04:00 (Toradol Inj) 15 mg Q6HR PRN IV PUSH 12/16/17 04:15 12/21/17 04:14 12/16/17 07:12 (Heparin Inj) 5,000 units Q8H SQ 12/16/17 12:00 12/16/17 12:28 (Morphine Inj) 1 mg Q4H PRN IM 12/16/17 09:15 Future Hold 12/16/17 10:11 (Duoneb Neb) 1 ampule Q4HR NEB INH 12/16/17 12:00 12/16/17 16:22 (Mucinex Er) 600 mg BID PO 12/16/17 09:15 Future Hold 12/16/17 10:51 Cefepime HCl 1000 mg/Sodium Chloride 100 ml @ 200 mls/hr Q8H IV 12/16/17 14:00 12/16/17 14:17 Pharmacy Profile Note 0 ml @ 0 mls/hr UNSCH PRN OTHER 12/16/17 14:15 Propofol 100 ml @ 2.1 mls/hr TITRATE PRN IV 12/16/17 14:45 Vancomycin HCl 1500 mg/Sodium Chloride 515 ml @ 257.5 mls/ hr Q12H ONCE IV 12/16/17 16:00 12/16/17 17:59 Miscellaneous Information SPECIFIC LAB TO BE ... ONCE ONCE .XX 12/18/17 03:45 12/18/17 03:46 (Duoneb Neb) 1 ampule Q6HR NEB INH 12/16/17 15:00 (Duoneb Neb) 1 ampule Q2HR NEB PRN NEB 12/16/17 15:00 Fentanyl Citrate 250 ml @ 5 mls/hr TITRATE PRN IV 12/16/17 16:30 Sodium Chloride 1,000 ml @ 84 mls/hr [id number] IV 12/16/17 17:00 (Zofran Inj) 4 mg Q6HR PRN IV PUSH 12/16/17 16:30 (Pepcid Inj) 20 mg Q12H IV PUSH 12/16/17 17:00 (Tylenol) 650 mg Q6H PRN PO 12/16/17 16:45 Miscellaneous Information 1 [id number] XX 12/16/17 16:45 (Chlorhexidine 2% Cloth) 3 pack Taper DAILY@04 TOP 12/17/17 04:00 12/13/18 03:59 (Chlorhexidine 2% Cloth) 3 pack UNSCH PRN TOP 12/16/17 16:45 (Florinda-Colace) 1 tab BID PO 12/16/17 21:00 (Milk Of Magnesia Liq) 30 ml Q12H PRN PO 12/16/17 16:45 (Senokot) 17.2 mg Q12H PRN PO 12/16/17 16:45 (Dulcolax Supp) 10 mg DAILY PRN RECTAL 12/16/17 16:45 (Lactulose Liq) 30 ml DAILY PRN PO 12/16/17 16:45 (Peridex 0.12% Liq) 15 ml BID@08,20 MT 12/16/17 20:00 Midazolam HCl 100 ml @ 2 mls/hr TITRATE PRN IV 12/16/17 17:30 A/P Assessment and Plan (1) Sepsis ICD Code: A41.9 - Sepsis, unspecified organism (2) Bilateral pneumonia ICD Code: J18.9 - Pneumonia, unspecified organism (3) Anxiety ICD Code: F41.9 - Anxiety disorder, unspecified Assessment and Plan Ms. Guzman is a 47-year-old female with a history of anxiety who presented to the emergency room and [place] complaining of chest pain and shortness of breath for 4 days duration. Chest x-ray demonstrated bilateral patchy basilar airspace consolidation most consistent with bronchopneumonia. The patient also met sepsis criteria. She was initially going to be transferred to [facility] in [place], however, due to hypoxic respiratory failure requiring BiPAP, she was transferred to [facility] in [place] and placed in ICU admitted to [facility] hospitalist group for medical management. Bilateral pneumonia Sepsis - CXR shows bilateral patchy basilar airspace consolidation most consistent with bronchopneumonia - WBC not elevated but patient with significant bandemia, tachycardia, hypoxia, and fever with known infection source - meets sepsis criteria - Negative for flu A&B - Antibiotics: Rocephin and Azithromycin IV - Continue BiPAP at current settings and titrate to maintain oxygen saturation greater than 92% - We will check ABGs - Duo nebulizers every 6 hours around the clock and every 4 hours as needed for wheezing/shortness of breath - Robitussin-DM 10 cc every 4 hours as needed for cough - Monitor vital signs every 4 hours - Initial lactic acid 2.2, 1.6 on recheck - Follow blood culture results and CBC - discussed with Pulmonary and video specialist Doctor Sharla due to the patient is worsening her condition, has Respiratory insufficiency asked to switch to Cefepime and Azithromycin, Consult sheepskin pickler, Consult building performance specialist, Legionella antigen, Pneumococcal antigen, Hypokalemia - Initial potassium 2.9 - IV fluid hydration with normal saline +20 cc of potassium at 125 cc an hour; replaced orally in [place] ED - Recheck BMP in a.m. and follow trends in potassium - Additional replacement is indicated - Continuous cardiac telemetry to monitor for arrhythmias Mild transaminitis of uncertain etiology - AST 56, ALT 88, alkaline phosphatase 214 - Recheck LFTs in a.m. and follow results - Consider hepatitis profile if persistently elevated Anxiety -Xanax 0.5 mg p.o. every 6 hours as needed for anxiety Hyperglycemia of uncertain significance - Initial blood glucose mildly elevated at 186 - Follow serum chemistry for glucose level in a.m. - Consider ordering a hemoglobin A1c - patient denies diabetes Atypical chest pain - musculoskeletal in nature - Initial troponin less than 0.02 and BNP was 66; minimal risk factors for CAD - Reproducible with palpation - Toradol 15 mg IV every 6 hours as needed for pain DVT prophylaxis -Heparin 5000 units subq every 8 hours . Discussed Condition With Patient, Nurse and Pulmonary and interactive media marketing specialist doctor Sharla. Discharge Planning transfer to Crime Scene Analyst management. Mina Fraser MD Dec 16, 2017 18:03
[2017-12-16 18:05] LABS: LACTIC ACID SEPSIS PROTOCOL 2.5 mmol/L (0.4-2.0)
[2017-12-16] MEDS: FAMOTIDINE 20 MG/2 ML VIAL IV PUSH SCH (19:36)
[2017-12-16] MEDS: CHLORHEXIDINE 0.12% (ORAL KIT) 15 ML CUP MT SCH (20:15)
[2017-12-16] MEDS: SODIUM CHLOR 0.9% 1000 ML INJ 1,000 ML IV SCH (20:15)
[2017-12-16] MEDS: MIDAZOLAM 100 MG/100 ML INJ 100 ML IV PRN (20:16)
[2017-12-16] MEDS: AZITHROMYCIN INJ 500 MG in SODIUM CHLOR 0.9% 250 ML INJ 250 ML IV SCH (20:17)
[2017-12-16] MEDS: DOCUSATE SODIUM 50 MG/SENNA 8.6 MG TAB PO SCH (20:17)
[2017-12-16] MEDS ORDERED: cefTRIAXone INJ 1,000 MG in SODIUM CHLORIDE 0.9% INJ 100 ML IV SCH (22:00)
[2017-12-17] VITALS (16 sets, daily range): BP systolic 98–109; BP diastolic 50–55; PULSE 96–114; RESP 15–24; TEMP 97.8–102.1; O2SAT 93–99
[2017-12-17] MEDS: RESP: ALBUTEROL 2.5 MG/IPRATROPIUM 0.5 MG NEB (SCH) INH ×10 (00:39→22:00)
[2017-12-17] MEDS: fentaNYL DRIP 250 ML IV PRN ×3 (02:34→20:44)
[2017-12-17 03:59] LABS: AUTOMATED NEUTROPHIL # 6.9 TH/MM3 (1.8-7.7); BASOPHIL % 0.1 % (0.0-2.0); EOSINOPHIL % 0.1 % (0.0-4.0); HEMATOCRIT 34.1 % (35.0-46.0); HEMOGLOBIN 11.7 GM/DL (11.6-15.3); LYMPH % 11.3 % (9.0-44.0); LYMPHOCYTE # 0.9 TH/MM3 (1.0-4.8); MEAN CELL VOLUME 88.1 FL (80.0-100.0); MEAN CORPUSCULAR HEMOGLOBIN 30.4 PG (27.0-34.0); MEAN CORPUSCULAR HGB CONC 34.5 % (32.0-36.0); MEAN PLATELET VOLUME 8.4 FL (7.0-11.0); MONO % 3.7 % (0.0-8.0); MONOCYTE # 0.3 TH/MM3 (0-0.9); NEUT % 84.8 % (16.0-70.0); PLATELET COUNT 160 TH/MM3 (150-450); RED BLOOD COUNT 3.86 MIL/MM3 (4.00-5.30); RED CELL DISTRIBUTION WIDTH 12.9 % (11.6-17.2); WHITE BLOOD COUNT 8.1 TH/MM3 (4.0-11.0)
[2017-12-17] MEDS: CHLORHEXIDINE GLUCONATE 2 % 1 PACK (2 CLOTHS)(taper/protocol) TOPICAL SCH (04:00)
[2017-12-17] MEDS: CHLORHEXIDINE GLUCONATE 2 % 1 PACK (2 CLOTHS) TOP SCH (04:00)
[2017-12-17 04:33] LABS: ALBUMIN 1.9 GM/DL (3.4-5.0); BICARBONATE 21.1 MEQ/L (21.0-32.0); CALCIUM-PROTEIN CORRECTED 7.9 MG/DL (8.5-10.1); CREATININE 0.59 MG/DL (0.50-1.00); MAGNESIUM 2.1 MG/DL (1.5-2.5); TOTAL BILIRUBIN ADULT 0.6 MG/DL (0.2-1.0); TOTAL PROTEIN 5.3 GM/DL (6.4-8.2)
[2017-12-17] MEDS: SODIUM CHLOR 0.9% 1000 ML INJ 1,000 ML IV SCH ×2 (04:55→16:19)
--- NOTE | 2017-12-17 05:16 | RADRPT ---
EXAM DATE/TIME: 12/17/2017 03:12 [place] COMPARISON: CHEST SINGLE AP, December 16, 2017, 16:35. INDICATIONS : Shortness of breath, possible pulmonary disease. MEDICAL HISTORY : Hypertension. SURGICAL HISTORY : Cholecystectomy. ENCOUNTER: Subsequent ACUITY: 3 days PAIN SCORE: Non-responsive. LOCATION: Bilateral chest FINDINGS: Bibasilar intralobular infiltrates have shown no significant change. No effusions. Heart is normal in size. Tip of the endotracheal tube 3 cm cephalad of the magdalena. The nasogastric tube courses off the inferior margin of the film. CONCLUSION: Unchanged bilateral infiltrates. Yomi Shipley Jr., MD on December 17, 2017 at 5:14 Board Certified Radiologist. This report was verified electronically.
[2017-12-17] MEDS: CEFEPIME INJ 1,000 MG in SODIUM CHLORIDE 0.9% INJ 100 ML IV SCH ×3 (06:00→20:44)
[2017-12-17] MEDS: MIDAZOLAM 100 MG/100 ML INJ 100 ML IV PRN ×2 (06:14→16:53)
[2017-12-17] MEDS: HEPARIN SODIUM - SQ 10,000 UNITS/ML VIAL SQ SCH ×3 (06:15→20:42)
[2017-12-17] MEDS: FAMOTIDINE 20 MG/2 ML VIAL IV PUSH SCH ×2 (06:15→16:52)
[2017-12-17] MEDS ORDERED: POTASSIUM PHOSPHATE MONOBASIC 500 MG TAB PO PRN (07:45)
[2017-12-17] MEDS ORDERED: MAGNESIUM OXIDE 400 MG TAB PO PRN (07:45)
[2017-12-17] MEDS ORDERED: POTASSIUM PHOSPHATE MONOBASIC 500 MG TAB PO/TUBE PRN (07:45)
[2017-12-17] MEDS ORDERED: POTASSIUM CHLOR 40 MEQ PREMIX 100 ML IV PRN (07:45)
[2017-12-17] MEDS ORDERED: MAGNESIUM SULFATE INJ 2 GM in SODIUM CHLORIDE 0.9% INJ 96 ML IV PRN (07:45)
[2017-12-17] MEDS ORDERED: POTASSIUM CHLORIDE 25 MEQ EFFERVESCENT TAB PO PRN (07:45)
[2017-12-17] MEDS ORDERED: POTASSIUM CHLOR 20 MEQ PREMIX 100 ML IV PRN (07:45)
[2017-12-17] MEDS ORDERED: POTASSIUM PHOSPHATE INJ 30 MMOL in SODIUM CHLOR 0.9% 250 ML INJ 250 ML IV PRN (07:45)
[2017-12-17] MEDS ORDERED: MAGNESIUM SULFATE INJ 4 GM in SODIUM CHLORIDE 0.9% INJ 92 ML IV PRN (07:45)
--- NOTE | 2017-12-17 07:52 | HHI.CCPN ---
Subjective Remarks/Hospital Course This is a 47-year-old female with a history of anxiety disorder, that presented to [place] on with complaints of chest pain and dyspnea that has been lasting for the past 4 days. The patient was transferred to [facility]. Imaging and laboratory studies were initially performed which showed a chest x-ray with bilateral patchy airspace consolidation consistent with bronchial pneumonia, and her lactic acid level was noted to be 3.1. The patient's oxygen requirements continue to increase the patient became tachypneic with a respiratory rate in the 40s and tachycardic, heart rate in the 120s. Pulmonology was consulted, CT was performed which revealed no pulmonary emboli , will several cavitary lesions, dense consolidation at both lung bases, air bronchograms and extensive pneumomediastinum extending into the lower neck and upper chest .ICU was requested to see patient. Upon observation the patient was severely dyspneic, with significant accessory muscle movement, violently coughing hemoptysis. Decision made to intubate patient for airway protection. 12/17 Patient is sedated with Diprivan and versed infusion. afebrile. s/p bronch yesterday by Dr. Klein. Objective Vital Signs Date Time Temp Pulse Resp B/P (MAP) Pulse Ox O2 Delivery O2 Flow Rate FiO2 12/17/17 07:25 98 40 12/17/17 04:00 97.8 106 21 105/54 (71) Intake and Output 12/17/17 12/17/17 12/18/17 08:00 16:00 00:00 Intake Total 1043 ml Output Total 650 ml Balance 393 ml Result Diagram: 12/17/17 0329 12/17/17 0329 Other Results Laboratory Tests Test 12/16/17 09:33 12/16/17 11:15 12/16/17 13:12 12/16/17 16:50 D-Dimer Quantitative (PE/DVT) 5.70 MG/L FEU Total Creatine Kinase 48 U/L Troponin I LESS THAN 0.02 NG/ML Lactic Acid Level 3.1 mmol/L Blood Gas Puncture Site LT RADIAL Blood Gas Patient Temperature 98.6 Blood Gas HCO3 21 mmol/L Blood Gas Base Excess -2.7 mmol/L Blood Gas Oxygen Saturation 90 % Arterial Blood pH 7.46 Arterial Blood Partial Pressure CO2 30 mmHg Arterial Blood Partial Pressure O2 60 mmHg Arterial Blood Oxygen Content 17.5 Vol % Arterial Blood Carboxyhemoglobin 0.6 % Arterial Blood Methemoglobin 1.1 % Blood Gas Hemoglobin 13.9 G/DL Oxygen Delivery Device Partial Rebreather Blood Gas Liter Flow 15 L/M Urine Color YELLOW Urine Turbidity CLEAR Urine pH 6.5 Urine Specific [place] GREATER THAN 1.050 Urine Protein 30 mg/dL Urine Glucose (UA) TRACE mg/dL Urine Ketones NEG mg/dL Urine Occult Blood TRACE Urine Nitrite NEG Urine Bilirubin NEG Urine Urobilinogen LESS THAN 2.0 MG/DL Urine Leukocyte Esterase NEG Urine RBC 3 /hpf Urine WBC 1 /hpf Urine Squamous Epithelial Cells 1 /hpf Microscopic Urinalysis Comment CATH-CULT NOT IND Urine Opiates Screen NEG Urine Barbiturates Screen NEG Urine Amphetamines Screen NEG Urine Benzodiazepines Screen POS Urine Cocaine Screen NEG Urine Cannabinoids Screen POS Test 12/16/17 16:52 12/16/17 17:11 12/16/17 23:12 12/17/17 01:28 Blood Gas Puncture Site LT RADIAL RT RADIAL Blood Gas Patient Temperature 98.6 98.6 Blood Gas HCO3 20 mmol/L 20 mmol/L Blood Gas Base Excess -5.7 mmol/L -4.5 mmol/L Blood Gas Oxygen Saturation 96 % 95 % Arterial Blood pH 7.27 7.36 Arterial Blood Partial Pressure CO2 45 mmHg 36 mmHg Arterial Blood Partial Pressure O2 123 mmHg 92 mmHg Arterial Blood Oxygen Content 17.6 Vol % 21.6 Vol % Arterial Blood Carboxyhemoglobin 0.2 % 0.3 % Arterial Blood Methemoglobin 1.2 % 1.1 % Blood Gas Hemoglobin 12.9 G/DL 16.1 G/DL Oxygen Delivery Device VENTILATOR VENTILATOR Blood Gas Ventilator Setting SEE COMMENTS SEE COMMENTS Blood Gas Inspired Oxygen 100 % 80 % Prothrombin Time 11.4 SEC Prothromb Time International Ratio 1.1 RATIO Lactic Acid Level 2.5 mmol/L 1.6 mmol/L Test 12/17/17 03:29 White Blood Count 8.1 TH/MM3 Red Blood Count 3.86 MIL/MM3 Hemoglobin 11.7 GM/DL Hematocrit 34.1 % Mean Corpuscular Volume 88.1 FL Mean Corpuscular Hemoglobin 30.4 PG Mean Corpuscular Hemoglobin Concent 34.5 % Red Cell Distribution Width 12.9 % Platelet Count 160 TH/MM3 Mean Platelet Volume 8.4 FL Neutrophils (%) (Auto) 84.8 % Lymphocytes (%) (Auto) 11.3 % Monocytes (%) (Auto) 3.7 % Eosinophils (%) (Auto) 0.1 % Basophils (%) (Auto) 0.1 % Neutrophils # (Auto) 6.9 TH/MM3 Lymphocytes # (Auto) 0.9 TH/MM3 Monocytes # (Auto) 0.3 TH/MM3 Eosinophils # (Auto) 0.0 TH/MM3 Basophils # (Auto) 0.0 TH/MM3 CBC Comment AUTO DIFF Blood Urea Nitrogen 10 MG/DL Creatinine 0.59 MG/DL Random Glucose 102 MG/DL Total Protein 5.3 GM/DL Albumin 1.9 GM/DL Calcium Level 7.0 MG/DL Phosphorus Level 1.0 MG/DL Magnesium Level 2.1 MG/DL Alkaline Phosphatase 96 U/L Aspartate Amino Transf (AST/SGOT) 23 U/L Alanine Aminotransferase (ALT/SGPT) 37 U/L Total Bilirubin 0.6 MG/DL Sodium Level 143 MEQ/L Potassium Level 3.8 MEQ/L Chloride Level 114 MEQ/L Carbon Dioxide Level 21.1 MEQ/L Anion Gap 8 MEQ/L Estimat Glomerular Filtration Rate 110 ML/MIN Lactic Acid Level 1.5 mmol/L Protein Corrected Calcium 7.9 MG/DL Imaging Last Impressions Chest X-Ray 12/17/17 0600 Signed Impressions: Service Date/Time: Sunday, December 17, 2017 03:12 - CONCLUSION: Unchanged bilateral infiltrates. Yomi Shipley Jr., MD CT Angiography 12/16/17 0000 Signed Impressions: Service Date/Time: Saturday, December 16, 2017 13:49 - CONCLUSION: 1. Negative for pulmonary emboli. 2. Dense consolidation in the lungs especially the lung bases with several cavitary lesions as above. Findings are most characteristic of pneumonia. Cannot exclude septic embolic disease. No significant effusion. Malachi Hardin MD Objective Remarks GENERAL: Patient is 47 yo intubated and sedated SKIN: Warm and dry. HEAD: Normocephalic. EYES: No scleral icterus. No injection or drainage. NECK: Supple, trachea midline. No JVD or lymphadenopathy. CARDIOVASCULAR: Regular rate and rhythm without murmurs, gallops, or rubs. RESPIRATORY: Breath sounds equal bilaterally. No accessory muscle use. GASTROINTESTINAL: Abdomen soft, non-tender, nondistended. MUSCULOSKELETAL: No cyanosis, or edema. Neuro: sedated A/P Problem List: (1) Anxiety ICD Code: F41.9 - Anxiety disorder, unspecified Status: Chronic (2) Sepsis ICD Code: A41.9 - Sepsis, unspecified organism Status: Acute (3) Bilateral pneumonia ICD Code: J18.9 - Pneumonia, unspecified organism Status: Acute Assessment and Plan Assessment This is a 47-year-old female in acute hypoxia respiratory failure , secondary to pneumonia , pulmonary cavitary lesions, and pneumomediastinum requiring intubation. The patient is critically ill. Plan by systems: Neurologic: Anxiety disorder Propofol and fentanyl infusions for sedation and ventilator synchrony Daily sedation vacation when stable UDS: + benzos, cannabinoids Tylenol for fever, and pain 1-5 Respiratory: Acute hypoxemic respiratory failure Small right Pneumothorax Pneumomediastinum Hemoptysis Continue with vent support keep sats >92%. Wean FIO2 as sharyn. CXR today- b/l pulm infiltrates, no PTX 12/16 -CT Angio - extensive pneumomediastinum extending into neck and upper chest. Dense consolidation at both lung bases, air bronchograms , 2 cavitary lesions Ventilator bundle Duo nebs every 6 hours scheduled every 2 hours PRN Pulmonology following 12/16-bronchoscopy performed by Dr. Klein, no active sites noted for bleeding, moderate purulent mucus bilaterally noted 2 BAL samples sent CTS consulted for Pneumomediastinum Cardiovascular: Sinus tachycardia Monitor HR and BP keep MAP>65mmHg Lactic acid 1.5 Renal: Monitor renal function, electrolytes replacement per protocol. Will need Phos replacement today GI: Start tube feeds- Glucerna 1.5 with goal rate 45ml/hr Famotidine GI prophylaxis ID: Gram positive Bacteremia Monitor CBC Follow-up blood urine and sputum cultures Follow-up BAL cultures Obtained influenza, pneumococcal and Legionella antigens- pending Continue abx cefepime, azithromycin and vancomycin , ID is following ID consulted follow-up recommendations Heme: Monitor CBC Endocrine: Glucose monitoring per ICU protocol-low dose regimen -- SSI Prophylaxis: GI Prophylaxis Famotidine IV DVT Prophylaxis -- SCDs -heparin SQ Lines: Peripheral IVs providing adequate access. Central line if indicated Level 3 Problem Qualifiers (1) Sepsis: Qualified Codes: A41.9 - Sepsis, unspecified organism Crystal Magdaleno MD Dec 17, 2017 07:52
[2017-12-17] MEDS: DOCUSATE SODIUM 50 MG/SENNA 8.6 MG TAB PO SCH ×2 (08:37→20:43)
[2017-12-17] MEDS: SODIUM CHLORIDE 0.9% FLUSH 10 ML FLUSH IV FLUSH SCH ×2 (08:38→20:43)
[2017-12-17 09:32] LABS: BANDS 39 % (0-6); LYMPHOCYTES 11 % (9-44); MONOCYTES 2 % (0-8); PLASMA CELLS 1 % (0-0); POLYS (SEG NEUTROPHILS) 47 % (16-70)
[2017-12-17 09:33] LABS: DOHLE BODIES PRESENT (NONE SEEN); TOXIC GRANULATION 1+ (NORMAL)
[2017-12-17] MEDS: ACETAMINOPHEN 325 MG TAB PO PRN (09:37)
[2017-12-17] MEDS: SODIUM PHOSPHATE INJ 30 MMOL in SODIUM CHLOR 0.9% 250 ML INJ 240 ML IV PRN (09:38)
[2017-12-17] MEDS: CHLORHEXIDINE 0.12% (ORAL KIT) 15 ML CUP MT SCH ×2 (09:39→20:00)
--- NOTE | 2017-12-17 10:26 | HHI.IDPN ---
Subjective Subjective Remarks Patient is a 47-year-old female, who initially presented to the [facility] ED complaining of 4 day history of chest pain and shortness of breath. In have any other history. She was apparently coughing and was bringing up some brownish phlegm. There was no mention of any fever or chills. No nausea or vomiting. No urinary complaints. Chest x-ray showed bilateral patchy basilar infiltrates. CTA did not show any pulmonary embolism, showed bilateral infiltrates with some cavitary lesions noted. She was transferred to the main hospital, and she apparently had some blood in the sputum. She ended up getting intubated. [facility] did bronchoscopy on her. Patient currently sedated postintubation. Her blood pressure is okay and she is not hypotensive. She is tachycardic. Infectious disease consultation has been requested to evaluate the patient with pneumonia Notes reviewed Discussed with ARBEN Maurer up to 102 this morning BP okay, not on pressors Sedated on the vent FiO2 at 40% Awakens easily Blood culture from [place] with gram-positive cocci in clusters Blood cultures here are pending Sputum pending Chest x-ray stable infiltrates Antibiotics Current Medications Cefepime Zithromax Vanco yesterday Medications (Trade) Dose Ordered Sig/Marily Route Start Time Stop Time Status Last Admin (NS Flush) 2 ml UNSCH PRN IV FLUSH 12/15/17 22:30 (NS Flush) 2 ml BID IV FLUSH 12/16/17 09:00 12/16/17 20:16 Azithromycin 500 mg/Sodium Chloride 250 ml @ 250 mls/hr Q24H IV 12/16/17 22:00 12/16/17 20:17 (Robitussin Dm 200-20 Mg/10 ml Liq) 10 ml Q4H PRN PO 12/15/17 22:30 Future Hold (Chlorhexidine 2% Cloth) 3 pack DAILY@04 TOPICAL 12/16/17 04:00 12/20/17 04:01 12/17/17 04:00 (Toradol Inj) 15 mg Q6HR PRN IV PUSH 12/16/17 04:15 12/21/17 04:14 12/16/17 07:12 (Heparin Inj) 5,000 units Q8H SQ 12/16/17 12:00 12/17/17 06:15 (Morphine Inj) 1 mg Q4H PRN IM 12/16/17 09:15 Future Hold 12/16/17 10:11 (Duoneb Neb) 1 ampule Q4HR NEB INH 12/16/17 12:00 12/17/17 07:25 (Mucinex Er) 600 mg BID PO 12/16/17 09:15 Future Hold 12/16/17 10:51 Cefepime HCl 1000 mg/Sodium Chloride 100 ml @ 200 mls/hr Q8H IV 12/16/17 14:00 12/17/17 06:00 Pharmacy Profile Note 0 ml @ 0 mls/hr UNSCH PRN OTHER 12/16/17 14:15 Propofol 100 ml @ 2.1 mls/hr TITRATE PRN IV 12/16/17 14:45 12/16/17 16:00 Miscellaneous Information SPECIFIC LAB TO BE ANABELLA... ONCE ONCE .XX 12/18/17 03:45 12/18/17 03:46 (Duoneb Neb) 1 ampule Q6HR NEB INH 12/16/17 15:00 12/16/17 19:41 (Duoneb Neb) 1 ampule Q2HR NEB PRN NEB 12/16/17 15:00 Fentanyl Citrate 250 ml @ 5 mls/hr TITRATE PRN IV 12/16/17 16:30 12/17/17 02:34 Sodium Chloride 1,000 ml @ 84 mls/hr [id number] IV 12/16/17 17:00 12/16/17 20:15 (Zofran Inj) 4 mg Q6HR PRN IV PUSH 12/16/17 16:30 (Pepcid Inj) 20 mg Q12H IV PUSH 12/16/17 17:00 12/17/17 06:15 (Tylenol) 650 mg Q6H PRN PO 12/16/17 16:45 12/17/17 09:37 Miscellaneous Information 1 Q361D XX 12/16/17 16:45 (Chlorhexidine 2% Cloth) 3 pack Taper DAILY@04 TOP 12/17/17 04:00 12/13/18 03:59 12/17/17 04:00 (Chlorhexidine 2% Cloth) 3 pack UNSCH PRN TOP 12/16/17 16:45 (Florinda-Colace) 1 tab BID PO 12/16/17 21:00 (Milk Of Magnesia Liq) 30 ml Q12H PRN PO 12/16/17 16:45 (Senokot) 17.2 mg Q12H PRN PO 12/16/17 16:45 (Dulcolax Supp) 10 mg DAILY PRN RECTAL 12/16/17 16:45 (Lactulose Liq) 30 ml DAILY PRN PO 12/16/17 16:45 (Peridex 0.12% Liq) 15 ml BID@08,20 MT 12/16/17 20:00 12/17/17 09:39 Midazolam HCl 100 ml @ 2 mls/hr TITRATE PRN IV 12/16/17 17:30 12/17/17 06:14 Potassium Chloride 100 ml @ 50 mls/hr Q2H PRN IV 12/17/17 07:45 Potassium Chloride 100 ml @ 50 mls/hr Q2H PRN IV 12/17/17 07:45 (K-Lyte Cl Eff) 50 meq UNSCH PRN PO 12/17/17 07:45 Potassium Chloride 100 ml @ 25 mls/hr UNSCH PRN IV 12/17/17 07:45 Potassium Chloride 100 ml @ 50 mls/hr Q2H PRN IV 12/17/17 07:45 Magnesium Sulfate 4 gm/Sodium Chloride 100 ml @ 50 mls/hr UNSCH PRN IV 12/17/17 07:45 (Mag-Ox) 800 mg UNSCH PRN PO 12/17/17 07:45 Magnesium Sulfate 2 gm/Sodium Chloride 100 ml @ 50 mls/hr UNSCH PRN IV 12/17/17 07:45 (K-Phos) 2,000 mg Q4H PRN PO 12/17/17 07:45 Sodium Phosphate 30 mmol/Sodium Chloride 250 ml @ 42 mls/hr UNSCH PRN IV 12/17/17 07:45 12/17/17 09:38 (K-Phos) 2,000 mg UNSCH PRN PO/TUBE 12/17/17 07:45 Potassium Phosphate 30 mmol/ Sodium Chloride 260 ml @ 42 mls/hr UNSCH PRN IV 12/17/17 07:45 Lines PIV Past Medical History Anxiety Past Surgical History Cholecystectomy Hysterectomy Allergies: Coded Allergies: No Known Allergies (Unverified , 12/15/17) Objective . Vital Signs Date Time Temp Pulse Resp B/P (MAP) Pulse Ox O2 Delivery O2 Flow Rate FiO2 12/17/17 08:00 102.1 103 21 103/50 (67) 94 12/17/17 08:00 103 12/17/17 08:00 60 12/17/17 07:25 98 40 12/17/17 04:02 97 60 12/17/17 04:00 97.8 106 21 105/54 (71) 98 12/17/17 04:00 60 12/17/17 00:39 99 70 12/17/17 00:00 97.9 109 22 109/55 (73) 99 12/17/17 00:00 70 12/16/17 20:46 100 80 12/16/17 20:00 80 12/16/17 20:00 98.0 85 24 109/54 (72) 100 12/16/17 18:00 80 12/16/17 18:00 91 12/16/17 17:20 98 80 12/16/17 16:23 98 100 12/16/17 16:00 98.4 101 18 123/59 (80) 98 12/16/17 16:00 101 12/16/17 16:00 80 12/16/17 15:44 96 100 12/16/17 15:23 100 100 12/16/17 14:00 132 12/16/17 12:00 112 12/16/17 12:00 98.6 112 43 133/62 (85) 95 12/16/17 11:11 96 60 12/16/17 10:52 47 . Laboratory Tests Test 12/16/17 06:05 12/17/17 03:29 White Blood Count 6.6 TH/MM3 8.1 TH/MM3 Red Blood Count 4.75 MIL/MM3 3.86 MIL/MM3 Hemoglobin 14.4 GM/DL 11.7 GM/DL Hematocrit 41.1 % 34.1 % Mean Corpuscular Volume 86.6 FL 88.1 FL Mean Corpuscular Hemoglobin 30.3 PG 30.4 PG Mean Corpuscular Hemoglobin Concent 34.9 % 34.5 % Red Cell Distribution Width 12.9 % 12.9 % Platelet Count 162 TH/MM3 160 TH/MM3 Mean Platelet Volume 8.2 FL 8.4 FL Neutrophils (%) (Auto) 84.7 % 84.8 % Lymphocytes (%) (Auto) 8.2 % 11.3 % Monocytes (%) (Auto) 7.0 % 3.7 % Eosinophils (%) (Auto) 0.0 % 0.1 % Basophils (%) (Auto) 0.1 % 0.1 % Neutrophils # (Auto) 5.6 TH/MM3 6.9 TH/MM3 Lymphocytes # (Auto) 0.5 TH/MM3 0.9 TH/MM3 Monocytes # (Auto) 0.5 TH/MM3 0.3 TH/MM3 Eosinophils # (Auto) 0.0 TH/MM3 0.0 TH/MM3 Basophils # (Auto) 0.0 TH/MM3 0.0 TH/MM3 CBC Comment DIFF FINAL AUTO DIFF Differential Comment FINAL DIFF MANUAL Differential Total Cells Counted 100 Neutrophils % (Manual) 47 % Band Neutrophils % 39 % Lymphocytes % 11 % Monocytes % 2 % Neutrophils # (Manual) 7.0 TH/MM3 Plasma Cells 1 % Toxic Granulation 1+ Dohle Bodies PRESENT Platelet Estimate NORMAL Platelet Morphology Comment NORMAL Red Cell Morphology Comment NORMAL Laboratory Tests Test 12/16/17 06:05 12/16/17 09:33 12/16/17 11:15 12/16/17 17:11 Blood Urea Nitrogen 5 MG/DL Creatinine 0.75 MG/DL Random Glucose 215 MG/DL Total Protein 6.1 GM/DL Albumin 2.4 GM/DL Calcium Level 7.8 MG/DL Alkaline Phosphatase 152 U/L Aspartate Amino Transf (AST/SGOT) 28 U/L Alanine Aminotransferase (ALT/SGPT) 59 U/L Total Bilirubin 0.8 MG/DL Sodium Level 141 MEQ/L Potassium Level 3.7 MEQ/L Chloride Level 108 MEQ/L Carbon Dioxide Level 23.4 MEQ/L Anion Gap 10 MEQ/L Estimat Glomerular Filtration Rate 83 ML/MIN Lactic Acid Level 3.1 mmol/L 3.1 mmol/L 2.5 mmol/L B-Type Natriuretic Peptide 88 PG/ML Total Creatine Kinase 48 U/L Troponin I LESS THAN 0.02 NG/ML Test 12/17/17 01:28 12/17/17 03:29 Lactic Acid Level 1.6 mmol/L 1.5 mmol/L Blood Urea Nitrogen 10 MG/DL Creatinine 0.59 MG/DL Random Glucose 102 MG/DL Total Protein 5.3 GM/DL Albumin 1.9 GM/DL Calcium Level 7.0 MG/DL Phosphorus Level 1.0 MG/DL Magnesium Level 2.1 MG/DL Alkaline Phosphatase 96 U/L Aspartate Amino Transf (AST/SGOT) 23 U/L Alanine Aminotransferase (ALT/SGPT) 37 U/L Total Bilirubin 0.6 MG/DL Sodium Level 143 MEQ/L Potassium Level 3.8 MEQ/L Chloride Level 114 MEQ/L Carbon Dioxide Level 21.1 MEQ/L Anion Gap 8 MEQ/L Estimat Glomerular Filtration Rate 110 ML/MIN Protein Corrected Calcium 7.9 MG/DL Microbiology Date/Time Source Procedure Growth Status 12/16/17 17:11 Blood Peripheral Aerobic Blood Culture Pending Received 12/16/17 17:11 Blood Peripheral Anaerobic Blood Culture Pending Received 12/16/17 17:06 Blood Peripheral Aerobic Blood Culture Pending Received 12/16/17 17:06 Blood Peripheral Anaerobic Blood Culture Pending Received 12/16/17 15:50 Mini Bronchoalveolar Lavage Pending Resulted 12/16/17 15:50 Mini Bronchoalveolar Lavage Gram Stain - Final Resulted 12/16/17 15:50 Mini Bronchoalveolar Lavage Bronchoalveolar Lavage Culture Pending Resulted 12/16/17 16:50 Urine Clean Catch Streptococcus pneumoniae Antigen (M - Final PRESUMPTIVE NEGATIVE FOR STREPTOCOCCU... Complete 12/16/17 16:50 Urine Random Urine Legionella Antigen - Final PRESUMPTIVE NEGATIVE FOR LEGIONELLA P... Complete Imaging Chest X-Ray 12/17/17 0600 Signed Impressions: Service Date/Time: Sunday, December 17, 2017 03:12 - CONCLUSION: Unchanged bilateral infiltrates. Yomi Shipley Jr., MD Chest X-Ray 12/16/17 0000 Signed Impressions: Service Date/Time: Saturday, December 16, 2017 16:35 - CONCLUSION: 1. No significant pneumothorax identified on plain film post bronchoscopy. Endotracheal tube and basilar airspace disease not significantly changed. Malachi Hardin MD Chest X-Ray 12/16/17 0000 Signed Impressions: Service Date/Time: Saturday, December 16, 2017 15:22 - CONCLUSION: 1. Endotracheal tube in good position. Extensive pneumomediastinum. Dense consolidation in the lungs. Malachi Hardin MD CT Angiography 12/16/17 0000 Signed Impressions: Service Date/Time: Saturday, December 16, 2017 13:49 - CONCLUSION: 1. Negative for pulmonary emboli. 2. Dense consolidation in the lungs especially the lung bases with several cavitary lesions as above. Findings are most characteristic of pneumonia. Cannot exclude septic embolic disease. No significant effusion. Malachi Hardin MD Physical Exam GENERAL: Sedated, but awakens easily and follows commands, on the vent, NAD. SKIN: Warm and dry. No generalized rash, no ecchymoses and no evidence of embolic lesions. HEAD: Atraumatic. Normocephalic. No temporal wasting, or tenderness. EYES: [place] conjunctiva. No petechia or hemorrhage. Pupils equal, round and reactive to light. No scleral icterus. No injection or drainage. EARS, NOSE AND THROAT: Nose without bleeding or purulent nasal discharge. She is orally intubated. Mucous membranes pink and moist. NECK: Trachea midline. Supple and not tender, no meningeal signs CARDIOVASCULAR: Regular rate and rhythm. No murmurs, rubs or gallops heard RESPIRATORY: Coarse breath sounds bilaterally ABDOMEN: Soft, non-tender, nondistended. Bowel sounds present and normoactive. No guarding. No rebound. No organomegaly. EXTREMITIES: No clubbing, cyanosis, or edema. No joint effusion, has good ROM. No calf tenderness. Well perfused and warm. NEUROLOGICAL: Nonfocal, awakens easily PSYCHIATRIC: Calm and cooperative LINE: No evidence of infection Assessment & Plan Remarks IMPRESSION Sepsis present on admission, has GPC on blood cultures Bilateral pneumonia, some with cavitation Respiratory failure RECOMMENDATION Follow cultures and adjust antibiotics Restart Vanco Continue cefepime and Zithromax Follow temps Await echo Monitor progress Will determine course of Abx ocne work-up and cultures completed Discussed with Liliam Ritchie MD Dec 17, 2017 10:26
[2017-12-17] MEDS ORDERED: Vancomycin Consult Pharmacy 1 EA OTHER SCH (10:30)
[2017-12-17 12:21] LABS: HEPATITIS A AB IGM NEGATIVE (NEGATIVE); HEPATITIS B CORE AB IGM NEGATIVE (NEGATIVE)
[2017-12-17] MEDS: VANCOMYCIN INJ 1,500 MG in SODIUM CHLORID 0.9% 500 ML INJ 500 ML IV SCH ×2 (12:34→23:49)
--- NOTE | 2017-12-17 15:59 | HHI.PR ---
Subjective Remarks on the ventilator sedated Objective Vital Signs Date Time Temp Pulse Resp B/P (MAP) Pulse Ox O2 Delivery O2 Flow Rate FiO2 12/17/17 15:16 93 40 12/17/17 14:00 98 12/17/17 12:22 96 40 12/17/17 12:00 100.1 104 15 98/51 (67) 96 12/17/17 12:00 40 12/17/17 12:00 100 12/17/17 10:37 18 12/17/17 10:00 114 12/17/17 08:00 102.1 103 21 103/50 (67) 94 12/17/17 08:00 103 12/17/17 08:00 60 12/17/17 07:25 98 40 12/17/17 04:02 97 60 12/17/17 04:00 97.8 106 21 105/54 (71) 98 12/17/17 04:00 60 12/17/17 00:39 99 70 12/17/17 00:00 97.9 109 22 109/55 (73) 99 12/17/17 00:00 70 12/16/17 20:46 100 80 12/16/17 20:00 80 12/16/17 20:00 98.0 85 24 109/54 (72) 100 12/16/17 18:00 80 12/16/17 18:00 91 12/16/17 17:20 98 80 12/16/17 16:23 98 100 12/16/17 16:00 98.4 101 18 123/59 (80) 98 12/16/17 16:00 101 12/16/17 16:00 80 I/O 12/16/17 12/16/17 12/16/17 12/17/17 12/17/17 12/17/17 07:00 15:00 23:00 07:00 15:00 23:00 Intake Total 1947 ml 1043 ml Output Total 500 ml 650 ml Balance -500 ml 1947 ml 393 ml Intake Oral 0 ml 0 ml IV Total 1947 ml 1043 ml Output Urine Total 500 ml 650 ml # Bowel Movements 2 2 0 Result Diagram: 12/17/17 0329 12/17/17 0329 Procedures BiPAP Objective Remarks GENERAL: SKIN: Warm and dry. HEAD: Atraumatic. Normocephalic. EYES: Pupils equal and round. No scleral icterus. No injection or drainage. ENT: No nasal bleeding or discharge. Mucous membranes pink and moist. NECK: Trachea midline. No JVD. CARDIOVASCULAR: Regular rate and rhythm. RESPIRATORY: No accessory muscle use. Clear to auscultation. Breath sounds equal bilaterally. GASTROINTESTINAL: Abdomen soft, non-tender, nondistended. Hepatic and splenic margins not palpable. MUSCULOSKELETAL: Extremities without clubbing, cyanosis, or edema. No obvious deformities. NEUROLOGICAL: Awake and alert. No obvious cranial nerve deficits. Motor grossly within normal limits. Five out of 5 muscle strength in the arms and legs. Normal speech. PSYCHIATRIC: Appropriate mood and affect; insight and judgment normal. Assessment and Plan Assessment and Plan imp: respiratory failure pna pneumomdiastinum, stable plan vent support antibx pulm toilet wean as tolerated Ileana Tejeda MD Dec 17, 2017 15:59
--- NOTE | 2017-12-17 17:24 | ECHRPT ---
Indication: sob CONCLUSIONS The transthoracic study is normal by two-dimensional, color flow imaging and Doppler interrogation. BP: / HR: Rhythm: MEASUREMENTS (Male / Female) Normal Values Technical Quality:Technically difficult study 2D ECHO LV Diastolic Diameter PLAX 4.8 cm 4.2 - 5.9 / 3.9 - 5.3 cm LV Systolic Diameter PLAX 3.2 cm IVS Diastolic Thickness 0.8 cm 0.6 - 1.0 / 0.6 - 0.9 cm LVPW Diastolic Thickness 0.9 cm 0.6 - 1.0 / 0.6 - 0.9 cm LV Relative Wall Thickness 0.4 RV Internal Dim ED PLAX 2.0 cm M-MODE Aortic Root Diameter MM 2.8 cm LA Systolic Diameter MM 3.2 cm LA Ao Ratio MM 1.1 AV Cusp Separation MM 1.5 cm DOPPLER Mitral E Point Velocity 93.7 cm/s Mitral A Point Velocity 70.6 cm/s Mitral E to A Ratio 1.3 TR Peak Velocity 225.0 cm/s TR Peak Gradient 20.3 mmHg Right Atrial Pressure 10.0 mmHg Pulmonary Artery Systolic Pressu 30.3 mmHg Right Ventricular Systolic Press 30.3 mmHg FINDINGS LEFT VENTRICLE Normal left ventricular size and wall thickness. The left ventricular systolic function is normal wi th an estimated ejection fraction in the range of 60-65%. Left ventricular diastolic function parameters a re normal. RIGHT VENTRICLE Normal right ventricular size and systolic function. LEFT ATRIUM The left atrial size is normal. RIGHT ATRIUM The right atrial size is normal. ATRIAL SEPTUM Normal atrial septal thickness without atrial level shunting by limited color doppler interrogation. AORTA The aortic root and proximal ascending aorta are not well visualized. MITRAL VALVE Structurally normal mitral valve. No mitral valve stenosis or regurgitation. AORTIC VALVE Trileaflet aortic valve. No aortic valve stenosis or regurgitation. TRICUSPID VALVE Structurally normal tricuspid valve. There is trace tricuspid valve regurgitation. PULMONARY VALVE No pulmonary valve regurgitation or stenosis. VESSELS The inferior vena cava is normal in size. PERICARDIUM No pericardial effusion. Ravinder Rodriguez MD, FACC (Electronically Signed) Final Date:17 December 2017 17:23
[2017-12-17] MEDS: AZITHROMYCIN INJ 500 MG in SODIUM CHLOR 0.9% 250 ML INJ 250 ML IV SCH (20:43)
[2017-12-18] VITALS (15 sets, daily range): BP systolic 99–111; BP diastolic 51–55; PULSE 81–101; RESP 17–24; TEMP 97.6–102.5; O2SAT 92–100
[2017-12-18] MEDS: MIDAZOLAM 100 MG/100 ML INJ 100 ML IV PRN ×3 (03:30→23:04)
[2017-12-18] MEDS: CHLORHEXIDINE GLUCONATE 2 % 1 PACK (2 CLOTHS) TOP SCH (03:31)
[2017-12-18] MEDS: SODIUM CHLOR 0.9% 1000 ML INJ 1,000 ML IV SCH ×3 (03:31→23:29)
[2017-12-18] MEDS: CHLORHEXIDINE GLUCONATE 2 % 1 PACK (2 CLOTHS)(taper/protocol) TOPICAL SCH (03:32)
[2017-12-18] MEDS: RESP: ALBUTEROL 2.5 MG/IPRATROPIUM 0.5 MG NEB (SCH) INH ×10 (03:39→22:00)
[2017-12-18] MEDS ORDERED: PHARMACY ORDERED LAB ONE ×3 (03:45→11:45)
[2017-12-18] MEDS: fentaNYL DRIP 250 ML IV PRN ×3 (05:22→23:23)
[2017-12-18] MEDS: HEPARIN SODIUM - SQ 10,000 UNITS/ML VIAL SQ SCH ×3 (05:23→22:59)
[2017-12-18] MEDS: CEFEPIME INJ 1,000 MG in SODIUM CHLORIDE 0.9% INJ 100 ML IV SCH ×3 (05:23→23:01)
[2017-12-18] MEDS: FAMOTIDINE 20 MG/2 ML VIAL IV PUSH SCH ×2 (05:23→16:53)
[2017-12-18 07:03] LABS: AUTOMATED NEUTROPHIL # 10.3 TH/MM3 (1.8-7.7); BASOPHIL % 0.1 % (0.0-2.0); EOSINOPHIL % 0.1 % (0.0-4.0); HEMATOCRIT 33.7 % (35.0-46.0); HEMOGLOBIN 11.5 GM/DL (11.6-15.3); LYMPH % 9.9 % (9.0-44.0); LYMPHOCYTE # 1.2 TH/MM3 (1.0-4.8); MEAN CELL VOLUME 89.9 FL (80.0-100.0); MEAN CORPUSCULAR HEMOGLOBIN 30.7 PG (27.0-34.0); MEAN CORPUSCULAR HGB CONC 34.1 % (32.0-36.0); MEAN PLATELET VOLUME 8.9 FL (7.0-11.0); MONO % 4.6 % (0.0-8.0); MONOCYTE # 0.6 TH/MM3 (0-0.9); NEUT % 85.3 % (16.0-70.0); PLATELET COUNT 175 TH/MM3 (150-450); RED BLOOD COUNT 3.75 MIL/MM3 (4.00-5.30); RED CELL DISTRIBUTION WIDTH 13.3 % (11.6-17.2); WHITE BLOOD COUNT 12.1 TH/MM3 (4.0-11.0)
[2017-12-18 07:32] LABS: BICARBONATE 22.4 MEQ/L (21.0-32.0); CREATININE 0.54 MG/DL (0.50-1.00); MAGNESIUM 2.3 MG/DL (1.5-2.5); PHOSPHORUS 1.3 MG/DL (2.5-4.9)
[2017-12-18] MEDS ORDERED: FUROSEMIDE 40 MG/4 ML VIAL IV PUSH ONE (08:00)
--- NOTE | 2017-12-18 08:02 | HHI.CCPN ---
Subjective Remarks/Hospital Course This is a 47-year-old female with a history of anxiety disorder, that presented to [place] on with complaints of chest pain and dyspnea that has been lasting for the past 4 days. The patient was transferred to [facility]. Imaging and laboratory studies were initially performed which showed a chest x-ray with bilateral patchy airspace consolidation consistent with bronchial pneumonia, and her lactic acid level was noted to be 3.1. The patient's oxygen requirements continue to increase the patient became tachypneic with a respiratory rate in the 40s and tachycardic, heart rate in the 120s. Pulmonology was consulted, CT was performed which revealed no pulmonary emboli , will several cavitary lesions, dense consolidation at both lung bases, air bronchograms and extensive pneumomediastinum extending into the lower neck and upper chest .ICU was requested to see patient. Upon observation the patient was severely dyspneic, with significant accessory muscle movement, violently coughing hemoptysis. Decision made to intubate patient for airway protection. 12/17 Patient is sedated with Diprivan and versed infusion. afebrile. s/p bronch yesterday by Dr. Klein. 12/18 Patient remains sedated with Versed 10mg/hr and Fentanyl 250 mics. Tmax 102.1 yesterday. + MRSA in bronch and GPC/MRSA from [facility] 12/15 from [place] Objective Vital Signs Date Time Temp Pulse Resp B/P (MAP) Pulse Ox O2 Delivery O2 Flow Rate FiO2 12/18/17 04:00 40 12/18/17 04:00 97.6 98 21 108/53 (71) 98 Intake and Output 12/18/17 12/18/17 12/19/17 08:00 16:00 00:00 Intake Total 2543 ml Output Total 700 ml Balance 1843 ml Result Diagram: 12/18/17 0525 12/18/17 0525 Other Results Laboratory Tests Test 12/17/17 11:07 12/17/17 20:23 12/18/17 05:25 12/18/17 05:50 Phosphorus Level 2.2 MG/DL 1.9 MG/DL 1.3 MG/DL White Blood Count 12.1 TH/MM3 Red Blood Count 3.75 MIL/MM3 Hemoglobin 11.5 GM/DL Hematocrit 33.7 % Mean Corpuscular Volume 89.9 FL Mean Corpuscular Hemoglobin 30.7 PG Mean Corpuscular Hemoglobin Concent 34.1 % Red Cell Distribution Width 13.3 % Platelet Count 175 TH/MM3 Mean Platelet Volume 8.9 FL Neutrophils (%) (Auto) 85.3 % Lymphocytes (%) (Auto) 9.9 % Monocytes (%) (Auto) 4.6 % Eosinophils (%) (Auto) 0.1 % Basophils (%) (Auto) 0.1 % Neutrophils # (Auto) 10.3 TH/MM3 Lymphocytes # (Auto) 1.2 TH/MM3 Monocytes # (Auto) 0.6 TH/MM3 Eosinophils # (Auto) 0.0 TH/MM3 Basophils # (Auto) 0.0 TH/MM3 CBC Comment AUTO DIFF Blood Urea Nitrogen 10 MG/DL Creatinine 0.54 MG/DL Random Glucose 108 MG/DL Calcium Level 8.0 MG/DL Magnesium Level 2.3 MG/DL Sodium Level 145 MEQ/L Potassium Level 4.0 MEQ/L Chloride Level 113 MEQ/L Carbon Dioxide Level 22.4 MEQ/L Anion Gap 10 MEQ/L Estimat Glomerular Filtration Rate 122 ML/MIN Blood Gas Puncture Site RT RADIAL Blood Gas Patient Temperature 98.6 Blood Gas HCO3 22 mmol/L Blood Gas Base Excess -2.8 mmol/L Blood Gas Oxygen Saturation 88 % Arterial Blood pH 7.36 Arterial Blood Partial Pressure CO2 39 mmHg Arterial Blood Partial Pressure O2 58 mmHg Arterial Blood Oxygen Content 17.3 Vol % Arterial Blood Carboxyhemoglobin 0.8 % Arterial Blood Methemoglobin 1.2 % Blood Gas Hemoglobin 14.0 G/DL Oxygen Delivery Device VENT Blood Gas Ventilator Setting SEE COMMENT Blood Gas Inspired Oxygen 50 % Imaging Last Impressions Chest X-Ray 12/17/17 0600 Signed Impressions: Service Date/Time: Sunday, December 17, 2017 03:12 - CONCLUSION: Unchanged bilateral infiltrates. Yomi Shipley Jr., MD CT Angiography 12/16/17 0000 Signed Impressions: Service Date/Time: Saturday, December 16, 2017 13:49 - CONCLUSION: 1. Negative for pulmonary emboli. 2. Dense consolidation in the lungs especially the lung bases with several cavitary lesions as above. Findings are most characteristic of pneumonia. Cannot exclude septic embolic disease. No significant effusion. Malachi Hardin MD Objective Remarks GENERAL: Patient is 47 yo intubated and sedated SKIN: Warm and dry. HEAD: Normocephalic. EYES: No scleral icterus. No injection or drainage. NECK: Supple, trachea midline. No JVD or lymphadenopathy. CARDIOVASCULAR: Regular rate and rhythm without murmurs, gallops, or rubs. RESPIRATORY: Breath sounds equal bilaterally. No accessory muscle use. GASTROINTESTINAL: Abdomen soft, non-tender, nondistended. MUSCULOSKELETAL: No cyanosis, or edema. Neuro: sedated A/P Problem List: (1) Anxiety ICD Code: F41.9 - Anxiety disorder, unspecified Status: Chronic (2) Sepsis ICD Code: A41.9 - Sepsis, unspecified organism Status: Acute (3) Bilateral pneumonia ICD Code: J18.9 - Pneumonia, unspecified organism Status: Acute Assessment and Plan Neurologic: Anxiety disorder Propofol and fentanyl infusions for sedation and ventilator synchrony Daily sedation vacation when stable UDS: + benzos, cannabinoids Tylenol for fever, and pain 1-5 Respiratory: Acute hypoxemic respiratory failure Small right Pneumothorax Pneumomediastinum Hemoptysis Continue with vent support keep sats >92%. Decrease FIO2 40% CXR 12/17- b/l pulm infiltrates, no PTX ( unchanged) 12/16 -CT Angio - extensive pneumomediastinum extending into neck and upper chest. Dense consolidation at both lung bases, air bronchograms , 2 cavitary lesions Ventilator bundle, SBT daily as sharyn. Duo nebs every 6 hours scheduled every 2 hours PRN Pulmonology following 12/16-bronchoscopy performed by Dr. Klein, no active sites noted for bleeding, moderate purulent mucus bilaterally noted 2 BAL samples sent CTS is following for Pneumomediastinum- Discussed with Dr. Guadarrama yesterday no intervention at this time. Cardiovascular: Sinus tachycardia Monitor HR and BP keep MAP>65mmHg Lactic acid 1.5 Echo showed EF 60-65% Renal: Monitor renal function, electrolytes replacement per protocol. Will need Phos replacement today. Diurese with Lasix 40mg x1 GI: On tube feeds- Glucerna 1.5 @ 45ml/hr Famotidine GI prophylaxis ID: Gram positive/MRSA Bacteremia 12/15 BC from [place]- MRSA/GPC 12/16 Bronch BAL- MRSA BC 12/16, 12/18: NGTD Monitor CBC influenza, pneumococcal and Legionella antigens- Negative Continue abx cefepime, azithromycin and vancomycin , ID is following ID consulted follow-up recommendations Heme: Monitor CBC Endocrine: Glucose monitoring per ICU protocol-low dose regimen -- SSI Prophylaxis: GI Prophylaxis Famotidine IV DVT Prophylaxis -- SCDs -heparin SQ Lines: Peripheral IVs providing adequate access. Level 3 Problem Qualifiers (1) Sepsis: Qualified Codes: A41.9 - Sepsis, unspecified organism Crystal Magdaleno MD Dec 18, 2017 08:02
[2017-12-18] MEDS: SODIUM CHLORIDE 0.9% FLUSH 10 ML FLUSH IV FLUSH SCH ×2 (08:40→23:00)
[2017-12-18] MEDS: ACETAMINOPHEN 325 MG TAB PO PRN (08:40)
[2017-12-18] MEDS: SODIUM PHOSPHATE INJ 30 MMOL in SODIUM CHLOR 0.9% 250 ML INJ 240 ML IV PRN (08:40)
[2017-12-18] MEDS: DOCUSATE SODIUM 50 MG/SENNA 8.6 MG TAB PO SCH ×2 (08:40→23:00)
[2017-12-18] MEDS: CHLORHEXIDINE 0.12% (ORAL KIT) 15 ML CUP MT SCH ×2 (08:41→22:59)
--- NOTE | 2017-12-18 08:41 | MB ---
cc: Sue Guadarrama MD DATE OF CONSULT: 12/17/2017 A 47-year-old female, presented to the [facility] on 12/15/2017, complaining of chest pain, dyspnea that lasted about 4 days, was transferred to [facility]. The chest x-ray originally showed bilateral patchy airspace consolidation consistent with bronchial pneumonia. Lactate level was 3.1. Patient became even more tachypneic with respiratory rate of 40, heart rate in the 120s. CT chest revealed no pulmonary emboli; however, she did have several cavitary lesions, dense consolidation of both air bronchograms and the extensive pneumomediastinum extending into the lower neck and upper chest. Apparently prior to that, she was having some episodes of significant coughing, questionable hemoptysis. She was intubated immediately for airway protection. Bronchoscopy was done by Dr. Klein. There were no active sites of bleeding, purulent mucus. Mini BAL was sent. Microbiology at this time. Bronchial washing is just showing some Staph MRSA. Blood cultures are negative x 24, negative for influenza A and B. Legionella is negative. Patient remains orally intubated. The chest x-ray is stable, no evidence of pneumothorax. CT angiography showed no evidence of pneumothorax either. She has significant consolidation in both lungs. PAST MEDICAL HISTORY: Anxiety. SURGERIES: Cholecystectomy, hysterectomy. NO KNOWN ALLERGIES. No reported home medications. FAMILY HISTORY: Father had heart disease and pneumonia. SOCIAL HISTORY: Nonsmoker, occasional marijuana when she was younger. REVIEW OF SYSTEMS: Unobtainable. On exam, blood pressure is 110/60, heart rate 103, temp max 100.8. Patient is on PRVC mode on the ventilator. She is orally intubated and sedated on the vent. Pupils are approximately 2 mm, midline, sluggish. She does have some faint subcutaneous emphysema to both sides of the neck. Heart sounds S1, S2, slightly tachycardic. No rubs or gallops. Lungs coarse bilateral breath sounds, equal bilaterally. Abdomen is soft, nontender, hypoactive bowel sounds. Extremities reveal trace edema with good distal pulses. LABORATORY WORK: Shows hemoglobin 11, hematocrit of 34, white cell count of 8.1, platelet count of 160. Sodium 143, potassium 3.8, BUN of 10, creatinine 0.60. Phos was 1.0, replaced now at 2.2. Total albumin is 1.9. INR 1.8. Urinalysis is unremarkable. Patient did have some positive benzos and cannabinoids in her system. Hepatitis A and B, C negative. MICROBIOLOGY: As above. RADIOLOGICAL EXAMINATION: As above. IMPRESSION: This is a 47-year-old female brought in with respiratory distress, bilateral bronchopneumonia, on antibiotics. No evidence of any pneumothorax. She does, however, have some pneumomediastinum. At this time, no surgical intervention is warranted at this time. Continue to wean O2 and wean ventilator as tolerated. ID following for sepsis, bilateral pneumonia, on broad-spectrum coverage. Dictated by SANTA Philippe MD SANDY Carr/MARTIN , 05:51 PM , 06:33 PM
[2017-12-18 08:50] LABS: BANDS 37 % (0-6); DOHLE BODIES PRESENT (NONE SEEN); LYMPHOCYTES 11 % (9-44); MONOCYTES 2 % (0-8); NEUTROPHIL # MANUAL DIFF 10.4 TH/MM3 (1.8-7.7); POLYS (SEG NEUTROPHILS) 49 % (16-70); TOXIC GRANULATION 2+ (NORMAL)
--- NOTE | 2017-12-18 09:58 | HHI.IDPN ---
Subjective Subjective Remarks Patient is a 47-year-old female, who initially presented to the [facility] ED complaining of 4 day history of chest pain and shortness of breath. In have any other history. She was apparently coughing and was bringing up some brownish phlegm. There was no mention of any fever or chills. No nausea or vomiting. No urinary complaints. Chest x-ray showed bilateral patchy basilar infiltrates. CTA did not show any pulmonary embolism, showed bilateral infiltrates with some cavitary lesions noted. She was transferred to the main hospital, and she apparently had some blood in the sputum. She ended up getting intubated. [facility] did bronchoscopy on her. Patient currently sedated postintubation. Her blood pressure is okay and she is not hypotensive. She is tachycardic. Infectious disease consultation has been requested to evaluate the patient with pneumonia Notes reviewed Discussed with ARBEN Maurer up to 102 this morning BP okay Sedated on the vent FiO2 at 40% Awakens easily Blood culture from [place] with MRSA Blood cultures here negative so far Echo no vegetation Sputum MRSA Chest x-ray stable infiltrates Antibiotics Vanco Cefepime Zithromax Current Medications Medications (Trade) Dose Ordered Sig/Marily Route Start Time Stop Time Status Last Admin (NS Flush) 2 ml UNSCH PRN IV FLUSH 12/15/17 22:30 (NS Flush) 2 ml BID IV FLUSH 12/16/17 09:00 12/18/17 08:40 Azithromycin 500 mg/Sodium Chloride 250 ml @ 250 mls/hr Q24H IV 12/16/17 22:00 12/17/17 20:43 (Robitussin Dm 200-20 Mg/10 ml Liq) 10 ml Q4H PRN PO 12/15/17 22:30 Future Hold (Chlorhexidine 2% Cloth) 3 pack DAILY@04 TOPICAL 12/16/17 04:00 12/20/17 04:01 12/17/17 04:00 (Toradol Inj) 15 mg Q6HR PRN IV PUSH 12/16/17 04:15 12/21/17 04:14 12/16/17 07:12 (Heparin Inj) 5,000 units Q8H SQ 12/16/17 12:00 12/18/17 05:23 (Morphine Inj) 1 mg Q4H PRN IM 12/16/17 09:15 Future Hold 12/16/17 10:11 (Duoneb Neb) 1 ampule Q4HR NEB INH 12/16/17 12:00 12/17/17 20:25 (Mucinex Er) 600 mg BID PO 12/16/17 09:15 Future Hold 12/16/17 10:51 Cefepime HCl 1000 mg/Sodium Chloride 100 ml @ 200 mls/hr Q8H IV 12/16/17 14:00 12/18/17 05:23 Propofol 100 ml @ 2.1 mls/hr TITRATE PRN IV 12/16/17 14:45 12/16/17 16:00 (Duoneb Neb) 1 ampule Q6HR NEB INH 12/16/17 15:00 12/18/17 08:13 (Duoneb Neb) 1 ampule Q2HR NEB PRN NEB 12/16/17 15:00 Fentanyl Citrate 250 ml @ 5 mls/hr TITRATE PRN IV 12/16/17 16:30 12/18/17 05:22 Sodium Chloride 1,000 ml @ 84 mls/hr [id number] IV 12/16/17 17:00 12/18/17 03:31 (Zofran Inj) 4 mg Q6HR PRN IV PUSH 12/16/17 16:30 (Pepcid Inj) 20 mg Q12H IV PUSH 12/16/17 17:00 12/18/17 05:23 (Tylenol) 650 mg Q6H PRN PO 12/16/17 16:45 12/18/17 08:40 Miscellaneous Information 1 Q361D XX 12/16/17 16:45 (Chlorhexidine 2% Cloth) 3 pack Taper DAILY@04 TOP 12/17/17 04:00 12/13/18 03:59 12/18/17 03:31 (Chlorhexidine 2% Cloth) 3 pack UNSCH PRN TOP 12/16/17 16:45 (Florinda-Colace) 1 tab BID PO 12/16/17 21:00 12/17/17 20:43 (Milk Of Magnesia Liq) 30 ml Q12H PRN PO 12/16/17 16:45 (Senokot) 17.2 mg Q12H PRN PO 12/16/17 16:45 (Dulcolax Supp) 10 mg DAILY PRN RECTAL 12/16/17 16:45 (Lactulose Liq) 30 ml DAILY PRN PO 12/16/17 16:45 (Peridex 0.12% Liq) 15 ml BID@08,20 MT 12/16/17 20:00 12/18/17 08:41 Midazolam HCl 100 ml @ 2 mls/hr TITRATE PRN IV 12/16/17 17:30 12/18/17 03:30 Potassium Chloride 100 ml @ 50 mls/hr Q2H PRN IV 12/17/17 07:45 Potassium Chloride 100 ml @ 50 mls/hr Q2H PRN IV 12/17/17 07:45 (K-Lyte Cl Eff) 50 meq UNSCH PRN PO 12/17/17 07:45 Potassium Chloride 100 ml @ 25 mls/hr UNSCH PRN IV 12/17/17 07:45 Potassium Chloride 100 ml @ 50 mls/hr Q2H PRN IV 12/17/17 07:45 Magnesium Sulfate 4 gm/Sodium Chloride 100 ml @ 50 mls/hr UNSCH PRN IV 12/17/17 07:45 (Mag-Ox) 800 mg UNSCH PRN PO 12/17/17 07:45 Magnesium Sulfate 2 gm/Sodium Chloride 100 ml @ 50 mls/hr UNSCH PRN IV 12/17/17 07:45 (K-Phos) 2,000 mg Q4H PRN PO 12/17/17 07:45 12/17/17 23:49 Sodium Phosphate 30 mmol/Sodium Chloride 250 ml @ 42 mls/hr UNSCH PRN IV 12/17/17 07:45 12/18/17 08:40 (K-Phos) 2,000 mg UNSCH PRN PO/TUBE 12/17/17 07:45 Potassium Phosphate 30 mmol/ Sodium Chloride 260 ml @ 42 mls/hr UNSCH PRN IV 12/17/17 07:45 Vancomycin HCl 1500 mg/Sodium Chloride 515 ml @ 257.5 mls/ hr Q12H IV 12/17/17 12:00 12/17/17 23:49 Pharmacy Profile Note 0 ml @ 0 mls/hr UNSCH OTHER 12/17/17 10:30 Miscellaneous Information SPECIFIC LAB TO BE ANABELLA... ONCE ONCE .XX 12/18/17 11:45 12/18/17 11:46 Lines PIV Past Medical History Anxiety Past Surgical History Cholecystectomy Hysterectomy Allergies: Coded Allergies: No Known Allergies (Unverified , 12/15/17) Objective . Vital Signs Date Time Temp Pulse Resp B/P (MAP) Pulse Ox O2 Delivery O2 Flow Rate FiO2 12/18/17 09:40 18 12/18/17 08:14 50 12/18/17 08:14 92 50 12/18/17 08:00 102.5 99 20 111/53 (72) 95 12/18/17 08:00 99 12/18/17 08:00 40 12/18/17 04:00 40 12/18/17 04:00 97.6 98 21 108/53 (71) 98 12/18/17 03:40 97 40 12/18/17 00:00 40 12/18/17 00:00 97.9 101 17 111/51 (71) 100 12/17/17 23:38 98 40 12/17/17 20:19 96 40 12/17/17 20:00 96 12/17/17 20:00 60 12/17/17 20:00 98.0 96 20 103/51 (68) 97 12/17/17 18:00 97 12/17/17 16:00 103 12/17/17 16:00 100.8 103 24 103/55 (71) 96 12/17/17 16:00 40 12/17/17 15:16 93 40 12/17/17 14:00 98 12/17/17 12:22 96 40 12/17/17 12:00 100.1 104 15 98/51 (67) 96 12/17/17 12:00 40 12/17/17 12:00 100 12/17/17 10:00 114 . Laboratory Tests Test 12/17/17 03:29 12/18/17 05:25 White Blood Count 8.1 TH/MM3 12.1 TH/MM3 Red Blood Count 3.86 MIL/MM3 3.75 MIL/MM3 Hemoglobin 11.7 GM/DL 11.5 GM/DL Hematocrit 34.1 % 33.7 % Mean Corpuscular Volume 88.1 FL 89.9 FL Mean Corpuscular Hemoglobin 30.4 PG 30.7 PG Mean Corpuscular Hemoglobin Concent 34.5 % 34.1 % Red Cell Distribution Width 12.9 % 13.3 % Platelet Count 160 TH/MM3 175 TH/MM3 Mean Platelet Volume 8.4 FL 8.9 FL Neutrophils (%) (Auto) 84.8 % 85.3 % Lymphocytes (%) (Auto) 11.3 % 9.9 % Monocytes (%) (Auto) 3.7 % 4.6 % Eosinophils (%) (Auto) 0.1 % 0.1 % Basophils (%) (Auto) 0.1 % 0.1 % Neutrophils # (Auto) 6.9 TH/MM3 10.3 TH/MM3 Lymphocytes # (Auto) 0.9 TH/MM3 1.2 TH/MM3 Monocytes # (Auto) 0.3 TH/MM3 0.6 TH/MM3 Eosinophils # (Auto) 0.0 TH/MM3 0.0 TH/MM3 Basophils # (Auto) 0.0 TH/MM3 0.0 TH/MM3 CBC Comment AUTO DIFF AUTO DIFF Differential Total Cells Counted 100 100 Neutrophils % (Manual) 47 % 49 % Band Neutrophils % 39 % 37 % Lymphocytes % 11 % 11 % Monocytes % 2 % 2 % Neutrophils # (Manual) 7.0 TH/MM3 10.4 TH/MM3 Differential Comment FINAL DIFF MANUAL FINAL DIFF MANUAL Plasma Cells 1 % Toxic Granulation 1+ 2+ Dohle Bodies PRESENT PRESENT Platelet Estimate NORMAL NORMAL Platelet Morphology Comment NORMAL NORMAL Red Cell Morphology Comment NORMAL Eosinophils % 1 % Atypical Lymphocytes % Laboratory Tests Test 12/16/17 11:15 12/16/17 17:11 12/17/17 01:28 12/17/17 03:29 Lactic Acid Level 3.1 mmol/L 2.5 mmol/L 1.6 mmol/L 1.5 mmol/L Blood Urea Nitrogen 10 MG/DL Creatinine 0.59 MG/DL Random Glucose 102 MG/DL Total Protein 5.3 GM/DL Albumin 1.9 GM/DL Calcium Level 7.0 MG/DL Phosphorus Level 1.0 MG/DL Magnesium Level 2.1 MG/DL Alkaline Phosphatase 96 U/L Aspartate Amino Transf (AST/SGOT) 23 U/L Alanine Aminotransferase (ALT/SGPT) 37 U/L Total Bilirubin 0.6 MG/DL Sodium Level 143 MEQ/L Potassium Level 3.8 MEQ/L Chloride Level 114 MEQ/L Carbon Dioxide Level 21.1 MEQ/L Anion Gap 8 MEQ/L Estimat Glomerular Filtration Rate 110 ML/MIN Protein Corrected Calcium 7.9 MG/DL Test 12/17/17 11:07 12/17/17 20:23 12/18/17 05:25 Phosphorus Level 2.2 MG/DL 1.9 MG/DL 1.3 MG/DL Blood Urea Nitrogen 10 MG/DL Creatinine 0.54 MG/DL Random Glucose 108 MG/DL Calcium Level 8.0 MG/DL Magnesium Level 2.3 MG/DL Sodium Level 145 MEQ/L Potassium Level 4.0 MEQ/L Chloride Level 113 MEQ/L Carbon Dioxide Level 22.4 MEQ/L Anion Gap 10 MEQ/L Estimat Glomerular Filtration Rate 122 ML/MIN Microbiology Date/Time Source Procedure Growth Status 12/18/17 05:25 Blood Peripheral Aerobic Blood Culture Pending Received 12/18/17 05:25 Blood Peripheral Anaerobic Blood Culture Pending Received 12/17/17 12:05 Blood Peripheral Aerobic Blood Culture Pending Received 12/17/17 12:05 Blood Peripheral Anaerobic Blood Culture Pending Received 12/16/17 17:11 Blood Peripheral Aerobic Blood Culture - Preliminary NO GROWTH IN 1 DAY Resulted 12/16/17 17:11 Blood Peripheral Anaerobic Blood Culture - Preliminary NO GROWTH IN 1 DAY Resulted 12/16/17 17:06 Blood Peripheral Aerobic Blood Culture - Preliminary NO GROWTH IN 1 DAY Resulted 12/16/17 17:06 Blood Peripheral Anaerobic Blood Culture - Preliminary NO GROWTH IN 1 DAY Resulted 12/17/17 14:40 Nasal Washing Influenza Types A,B Antigen (ANTOINE) - Final NEGATIVE FOR FLU A AND B ANTIGEN.... Complete 12/16/17 15:50 Bronchial Washings Bronchial Gram Stain - Final Resulted 12/16/17 15:50 Bronchial Culture - Preliminary S. Aureus Mrsa Resulted 12/16/17 16:50 Urine Clean Catch Streptococcus pneumoniae Antigen (M - Final PRESUMPTIVE NEGATIVE FOR STREPTOCOCCU... Complete 12/16/17 16:50 Urine Random Urine Legionella Antigen - Final PRESUMPTIVE NEGATIVE FOR LEGIONELLA P... Complete Imaging Chest X-Ray 12/17/17 0600 Signed Impressions: Service Date/Time: Sunday, December 17, 2017 03:12 - CONCLUSION: Unchanged bilateral infiltrates. Yomi Shipley Jr., MD Chest X-Ray 12/16/17 0000 Signed Impressions: Service Date/Time: Saturday, December 16, 2017 16:35 - CONCLUSION: 1. No significant pneumothorax identified on plain film post bronchoscopy. Endotracheal tube and basilar airspace disease not significantly changed. Malachi Hardin MD Chest X-Ray 12/16/17 0000 Signed Impressions: Service Date/Time: Saturday, December 16, 2017 15:22 - CONCLUSION: 1. Endotracheal tube in good position. Extensive pneumomediastinum. Dense consolidation in the lungs. Malachi Hardin MD CT Angiography 12/16/17 0000 Signed Impressions: Service Date/Time: Saturday, December 16, 2017 13:49 - CONCLUSION: 1. Negative for pulmonary emboli. 2. Dense consolidation in the lungs especially the lung bases with several cavitary lesions as above. Findings are most characteristic of pneumonia. Cannot exclude septic embolic disease. No significant effusion. Malachi Hardin MD Physical Exam GENERAL: Sedated, but awakens easily and follows commands, on the vent, NAD. SKIN: Warm and dry. No generalized rash, no ecchymoses and no evidence of embolic lesions. HEAD: Atraumatic. Normocephalic. No temporal wasting, or tenderness. EYES: [place] conjunctiva. No petechia or hemorrhage. Pupils equal, round and reactive to light. No scleral icterus. No injection or drainage. EARS, NOSE AND THROAT: Nose without bleeding or purulent nasal discharge. She is orally intubated. Mucous membranes pink and moist. NECK: Trachea midline. Supple and not tender, no meningeal signs CARDIOVASCULAR: Regular rate and rhythm. No murmurs, rubs or gallops heard RESPIRATORY: Coarse breath sounds bilaterally ABDOMEN: Soft, non-tender, nondistended. Bowel sounds present and normoactive. No guarding. No rebound. No organomegaly. EXTREMITIES: No clubbing, cyanosis, or edema. No joint effusion, has good ROM. No calf tenderness. Well perfused and warm. NEUROLOGICAL: Nonfocal, awakens easily PSYCHIATRIC: Calm and cooperative LINE: No evidence of infection Assessment & Plan Remarks IMPRESSION Sepsis present on admission, has MRSA on blood cultures Bilateral pneumonia, some with cavitation - C/S with MRSA Respiratory failure RECOMMENDATION Follow cultures and adjust antibiotics Continue Vanco Continue cefepime and Zithromax Once C/S finalized will deescalate Abx Follow temps Monitor progress Will determine course of Abx once work-up and cultures completed Discussed with Liliam Ritchie MD Dec 18, 2017 09:58
[2017-12-18] MEDS: VANCOMYCIN INJ 1,500 MG in SODIUM CHLORID 0.9% 500 ML INJ 500 ML IV SCH ×2 (12:42→23:22)
[2017-12-18] MEDS ORDERED: HALOPERIDOL LACTATE 5 MG/ML AMP IV ONE (16:15)
[2017-12-18] MEDS ORDERED: LORazepam 2 MG/ML VIAL IV PRN (16:15)
--- NOTE | 2017-12-18 16:33 | HHI.PR ---
Subjective Remarks on the ventilator sedated Objective Vital Signs Date Time Temp Pulse Resp B/P (MAP) Pulse Ox O2 Delivery O2 Flow Rate FiO2 12/18/17 16:00 50 12/18/17 16:00 92 12/18/17 16:00 100.7 91 21 109/55 (73) 98 12/18/17 15:56 98 50 12/18/17 14:00 87 12/18/17 12:00 40 12/18/17 12:00 100.3 91 20 99/53 (68) 99 12/18/17 12:00 94 12/18/17 11:34 98 50 12/18/17 10:00 96 12/18/17 09:40 18 12/18/17 08:14 50 12/18/17 08:14 92 50 12/18/17 08:00 102.5 99 20 111/53 (72) 95 12/18/17 08:00 99 12/18/17 08:00 40 12/18/17 04:00 40 12/18/17 04:00 97.6 98 21 108/53 (71) 98 12/18/17 03:40 97 40 12/18/17 00:00 40 12/18/17 00:00 97.9 101 17 111/51 (71) 100 12/17/17 23:38 98 40 12/17/17 20:19 96 40 12/17/17 20:00 96 12/17/17 20:00 60 12/17/17 20:00 98.0 96 20 103/51 (68) 97 12/17/17 18:00 97 I/O 12/17/17 12/17/17 12/17/17 12/18/17 12/18/17 12/18/17 07:00 15:00 23:00 07:00 15:00 23:00 Intake Total 1043 ml 100 ml 901 ml 2543 ml Output Total 650 ml 550 ml 700 ml Balance 393 ml 100 ml 351 ml 1843 ml Intake Oral 0 ml 0 ml IV Total 1043 ml 100 ml 748 ml 2005 ml Tube Feeding 153 ml 538 ml Output Urine Total 650 ml 550 ml 700 ml # Bowel Movements 0 0 0 Result Diagram: 12/18/1752412/18/17 0525 Procedures BiPAP Objective Remarks GENERAL: SKIN: Warm and dry. HEAD: Atraumatic. Normocephalic. EYES: Pupils equal and round. No scleral icterus. No injection or drainage. ENT: No nasal bleeding or discharge. Mucous membranes pink and moist. NECK: Trachea midline. No JVD. CARDIOVASCULAR: Regular rate and rhythm. RESPIRATORY: No accessory muscle use. Clear to auscultation. Breath sounds equal bilaterally. GASTROINTESTINAL: Abdomen soft, non-tender, nondistended. Hepatic and splenic margins not palpable. MUSCULOSKELETAL: Extremities without clubbing, cyanosis, or edema. No obvious deformities. NEUROLOGICAL: Awake and alert. No obvious cranial nerve deficits. Motor grossly within normal limits. Five out of 5 muscle strength in the arms and legs. Normal speech. PSYCHIATRIC: Appropriate mood and affect; insight and judgment normal. Assessment and Plan Assessment and Plan imp: respiratory failure pna pneumomdiastinum, stable attempt at weaning no successful plan vent support antibx pulm toilet wean as tolerated Ileana Tejeda MD Dec 18, 2017 16:33
[2017-12-18] MEDS ORDERED: hydrALAZINE HCL 20 MG/ML VIAL ONE (17:46)
[2017-12-18] MEDS: AZITHROMYCIN INJ 500 MG in SODIUM CHLOR 0.9% 250 ML INJ 250 ML IV SCH (23:03)
[2017-12-19] VITALS (49 sets, daily range): BP systolic 98–175; BP diastolic 51–108; PULSE 51–161; RESP 17–54; TEMP 98–99.8; O2SAT 92–100
[2017-12-19] MEDS: SODIUM CHLOR 0.9% 1000 ML INJ 1,000 ML IV SCH ×3 (00:03→23:14)
[2017-12-19] MEDS: RESP: ALBUTEROL 2.5 MG/IPRATROPIUM 0.5 MG NEB (SCH) INH ×4 (03:31→23:39)
[2017-12-19] MEDS: HEPARIN SODIUM - SQ 10,000 UNITS/ML VIAL SQ SCH ×3 (04:00→20:00)
[2017-12-19] MEDS: CHLORHEXIDINE GLUCONATE 2 % 1 PACK (2 CLOTHS) TOP SCH ×2 (04:00→20:55)
[2017-12-19] MEDS: CHLORHEXIDINE GLUCONATE 2 % 1 PACK (2 CLOTHS)(taper/protocol) TOPICAL SCH ×2 (04:00→20:56)
[2017-12-19] MEDS ORDERED: MIDAZOLAM HCL 5 MG/ML VIAL (1 ML) ONE (04:59)
[2017-12-19] MEDS ORDERED: MIDAZOLAM HCL 2 MG/2 ML VIAL IV PUSH ONE (05:00)
[2017-12-19] MEDS ORDERED: ROCURONIUM INJ 50 MG/5 ML VIAL IV ONE (05:00)
[2017-12-19] MEDS: FAMOTIDINE 20 MG/2 ML VIAL IV PUSH SCH ×2 (05:00→17:55)
--- NOTE | 2017-12-19 05:24 | RADRPT ---
EXAM DATE/TIME: 12/19/2017 03:35 [facility] COMPARISON: CHEST SINGLE AP, December 17, 2017, 3:12. INDICATIONS : Shortness of breath. MEDICAL HISTORY : Hypertension. SURGICAL HISTORY : Cholecystectomy. ENCOUNTER: Subsequent ACUITY: 4 - 6 days PAIN SCORE: Non-responsive. LOCATION: Bilateral chest FINDINGS: A single portable frontal view the chest shows worsening diffuse bilateral pulmonary infiltrates most pronounced within the bases. No effusions. Heart is normal in size. Tip of the endotracheal tube 4 c m proximal to the magdalena. Nasogastric tube noted. CONCLUSION: Worsening diffuse infiltrates. Yomi Shipley Jr., MD on December 19, 2017 at 5:22 Board Certified Radiologist. This report was verified electronically.
--- NOTE | 2017-12-19 05:29 | RADRPT ---
EXAM DATE/TIME: 12/19/2017 04:53 [facility] COMPARISON: CHEST SINGLE AP, December 19, 2017, 3:35. INDICATIONS : Shortness of breath. MEDICAL HISTORY : Hypertension. SURGICAL HISTORY : Cholecystectomy. ENCOUNTER: Subsequent ACUITY: 4 - 6 days PAIN SCORE: Non-responsive. LOCATION: Bilateral chest FINDINGS: A single portable frontal view the chest shows diffuse bilateral pulmonary infiltrates most pronounce d within the bases. These are stable. No effusions. Heart is normal in size. The endotracheal tube 4 cm from the magdalena. Nasogastric tube courses off the inferior margin of the film. CONCLUSION: Stable diffuse pulmonary infiltrates bilaterally. Yomi Shipley Jr., MD on December 19, 2017 at 5:27 Board Certified Radiologist. This report was verified electronically.
[2017-12-19 05:39] LABS: PHOSPHORUS 1.8 MG/DL (2.5-4.9)
[2017-12-19] MEDS: CEFEPIME INJ 1,000 MG in SODIUM CHLORIDE 0.9% INJ 100 ML IV SCH (06:00)
[2017-12-19 06:04] LABS: BICARBONATE 24.3 MEQ/L (21.0-32.0); CALCIUM 8.1 MG/DL (8.5-10.1); CREATININE 0.49 MG/DL (0.50-1.00); MAGNESIUM 2.2 MG/DL (1.5-2.5)
[2017-12-19] MEDS ORDERED: CISATRACURIUM BESYLATE 20 MG/10 ML VIAL IV PUSH ONE (06:15)
[2017-12-19] MEDS ORDERED: FUROSEMIDE 40 MG/4 ML VIAL IV PUSH ONE (06:15)
[2017-12-19] MEDS ORDERED: POTASSIUM CHLORIDE 25 MEQ EFFERVESCENT TAB OG-TUBE ONE (06:15)
[2017-12-19] MEDS: CISATRACURIUM INJ 100 MG in SODIUM CHLOR 0.9% 250 ML INJ 250 ML IV PRN ×2 (07:56→21:13)
[2017-12-19] MEDS: fentaNYL DRIP 250 ML IV PRN ×2 (08:57→20:56)
[2017-12-19] MEDS: MIDAZOLAM 100 MG/100 ML INJ 100 ML IV PRN ×2 (08:58→21:13)
[2017-12-19] MEDS: SODIUM CHLORIDE 0.9% FLUSH 10 ML FLUSH IV FLUSH SCH ×2 (09:00→20:52)
[2017-12-19] MEDS: DOCUSATE SODIUM 50 MG/SENNA 8.6 MG TAB PO SCH ×2 (09:00→20:52)
[2017-12-19] MEDS: CHLORHEXIDINE 0.12% (ORAL KIT) 15 ML CUP MT SCH ×2 (09:01→20:00)
[2017-12-19] MEDS ORDERED: EPINEPHrine HCL (1:10,000) 1 MG/10 ML SYRINGE ONE (09:04)
[2017-12-19] MEDS ORDERED: ATROPINE SULFATE 1 MG/10 ML SYRINGE ONE (09:05)
[2017-12-19 09:08] LABS: AUTOMATED NEUTROPHIL # 16.2 TH/MM3 (1.8-7.7); BASOPHIL # 0.1 TH/MM3 (0-0.2); BASOPHIL % 0.3 % (0.0-2.0); HEMATOCRIT 31.8 % (35.0-46.0); HEMOGLOBIN 10.6 GM/DL (11.6-15.3); LYMPH % 5.5 % (9.0-44.0); MEAN CELL VOLUME 89.4 FL (80.0-100.0); MEAN CORPUSCULAR HEMOGLOBIN 29.7 PG (27.0-34.0); MEAN CORPUSCULAR HGB CONC 33.2 % (32.0-36.0); MONO % 5.9 % (0.0-8.0); MONOCYTE # 1.1 TH/MM3 (0-0.9); NEUT % 88.3 % (16.0-70.0); PLATELET COUNT 239 TH/MM3 (150-450); RED BLOOD COUNT 3.56 MIL/MM3 (4.00-5.30); RED CELL DISTRIBUTION WIDTH 13.3 % (11.6-17.2); WHITE BLOOD COUNT 18.3 TH/MM3 (4.0-11.0)
--- NOTE | 2017-12-19 09:55 | HHI.IDPN ---
Subjective Subjective Remarks Patient is a 47-year-old female, who initially presented to the [facility] ED complaining of 4 day history of chest pain and shortness of breath. In have any other history. She was apparently coughing and was bringing up some brownish phlegm. There was no mention of any fever or chills. No nausea or vomiting. No urinary complaints. Chest x-ray showed bilateral patchy basilar infiltrates. CTA did not show any pulmonary embolism, showed bilateral infiltrates with some cavitary lesions noted. She was transferred to the main hospital, and she apparently had some blood in the sputum. She ended up getting intubated. [facility] did bronchoscopy on her. Patient currently sedated postintubation. Her blood pressure is okay and she is not hypotensive. She is tachycardic. Infectious disease consultation has been requested to evaluate the patient with pneumonia Notes reviewed Discussed with ARBEN cates this morning On vent, sedated and low dose paralytic FiO2 at 0.6 All BC with MRSA 12/15-12/18 BP okay, not on pressors Having different types of arrhythmia on the monitor TTE valves ok, but AV not seen CXR worsening infiltrates WBC up to 18 Vanco ANTOINE 2 Antibiotics Vanco Cefepime Zithromax Current Medications Medications (Trade) Dose Ordered Sig/Marily Route Start Time Stop Time Status Last Admin (NS Flush) 2 ml UNSCH PRN IV FLUSH 12/15/17 22:30 (NS Flush) 2 ml BID IV FLUSH 12/16/17 09:00 12/19/17 09:00 Azithromycin 500 mg/Sodium Chloride 250 ml @ 250 mls/hr Q24H IV 12/16/17 22:00 12/18/17 23:03 (Robitussin Dm 200-20 Mg/10 ml Liq) 10 ml Q4H PRN PO 12/15/17 22:30 Future Hold (Chlorhexidine 2% Cloth) 3 pack DAILY@04 TOPICAL 12/16/17 04:00 12/20/17 04:01 12/17/17 04:00 (Toradol Inj) 15 mg Q6HR PRN IV PUSH 12/16/17 04:15 12/21/17 04:14 12/16/17 07:12 (Heparin Inj) 5,000 units Q8H SQ 12/16/17 12:00 12/19/17 04:00 (Morphine Inj) 1 mg Q4H PRN IM 12/16/17 09:15 Future Hold 12/16/17 10:11 (Duoneb Neb) 1 ampule Q4HR NEB INH 12/16/17 12:00 12/18/17 20:18 (Mucinex Er) 600 mg BID PO 12/16/17 09:15 Future Hold 12/16/17 10:51 Cefepime HCl 1000 mg/Sodium Chloride 100 ml @ 200 mls/hr Q8H IV 12/16/17 14:00 12/18/17 23:01 Propofol 100 ml @ 2.1 mls/hr TITRATE PRN IV 12/16/17 14:45 12/16/17 16:00 (Duoneb Neb) 1 ampule Q6HR NEB INH 12/16/17 15:00 12/19/17 03:31 (Duoneb Neb) 1 ampule Q2HR NEB PRN NEB 12/16/17 15:00 Fentanyl Citrate 250 ml @ 5 mls/hr TITRATE PRN IV 12/16/17 16:30 12/19/17 08:57 Sodium Chloride 1,000 ml @ 84 mls/hr [id number] IV 12/16/17 17:00 12/19/17 00:03 (Zofran Inj) 4 mg Q6HR PRN IV PUSH 12/16/17 16:30 (Pepcid Inj) 20 mg Q12H IV PUSH 12/16/17 17:00 12/19/17 05:00 (Tylenol) 650 mg Q6H PRN PO 12/16/17 16:45 12/18/17 08:40 Miscellaneous Information 1 Q361D XX 12/16/17 16:45 (Chlorhexidine 2% Cloth) 3 pack Taper DAILY@04 TOP 12/17/17 04:00 12/13/18 03:59 12/19/17 04:00 (Chlorhexidine 2% Cloth) 3 pack UNSCH PRN TOP 12/16/17 16:45 (Florinda-Colace) 1 tab BID PO 12/16/17 21:00 12/18/17 23:00 (Milk Of Magnesia Liq) 30 ml Q12H PRN PO 12/16/17 16:45 (Senokot) 17.2 mg Q12H PRN PO 12/16/17 16:45 (Dulcolax Supp) 10 mg DAILY PRN RECTAL 12/16/17 16:45 (Lactulose Liq) 30 ml DAILY PRN PO 12/16/17 16:45 (Peridex 0.12% Liq) 15 ml BID@08,20 MT 12/16/17 20:00 12/19/17 09:01 Midazolam HCl 100 ml @ 2 mls/hr TITRATE PRN IV 12/16/17 17:30 12/19/17 08:58 Potassium Chloride 100 ml @ 50 mls/hr Q2H PRN IV 12/17/17 07:45 Potassium Chloride 100 ml @ 50 mls/hr Q2H PRN IV 12/17/17 07:45 (K-Lyte Cl Eff) 50 meq UNSCH PRN PO 12/17/17 07:45 Potassium Chloride 100 ml @ 25 mls/hr UNSCH PRN IV 12/17/17 07:45 Potassium Chloride 100 ml @ 50 mls/hr Q2H PRN IV 12/17/17 07:45 Magnesium Sulfate 4 gm/Sodium Chloride 100 ml @ 50 mls/hr UNSCH PRN IV 12/17/17 07:45 (Mag-Ox) 800 mg UNSCH PRN PO 12/17/17 07:45 Magnesium Sulfate 2 gm/Sodium Chloride 100 ml @ 50 mls/hr UNSCH PRN IV 12/17/17 07:45 (K-Phos) 2,000 mg Q4H PRN PO 12/17/17 07:45 12/17/17 23:49 Sodium Phosphate 30 mmol/Sodium Chloride 250 ml @ 42 mls/hr UNSCH PRN IV 12/17/17 07:45 12/18/17 08:40 (K-Phos) 2,000 mg UNSCH PRN PO/TUBE 12/17/17 07:45 Potassium Phosphate 30 mmol/ Sodium Chloride 260 ml @ 42 mls/hr UNSCH PRN IV 12/17/17 07:45 12/19/17 07:57 Vancomycin HCl 1500 mg/Sodium Chloride 515 ml @ 257.5 mls/ hr Q12H IV 12/17/17 12:00 12/18/17 23:22 Pharmacy Profile Note 0 ml @ 0 mls/hr UNSCH OTHER 12/17/17 10:30 Miscellaneous Information SPECIFIC LAB TO BE DRAWN:[facility] TR[facility] DATE TO... ONCE ONCE .XX 12/19/17 11:45 12/19/17 11:46 (Ativan Inj) 1 mg Q4H PRN IV 12/18/17 16:15 Cisatracurium Besylate 100 mg/ Sodium Chloride 260 ml @ 11.55 mls/ hr TITRATE PRN IV 12/19/17 06:15 12/19/17 07:56 Lines PIV Past Medical History Anxiety Past Surgical History Cholecystectomy Hysterectomy Allergies: Coded Allergies: No Known Allergies (Unverified , 12/15/17) Objective . Vital Signs Date Time Temp Pulse Resp B/P (MAP) Pulse Ox O2 Delivery O2 Flow Rate FiO2 12/19/17 07:42 100 80 12/19/17 04:00 50 12/19/17 04:00 99.2 125 54 161/71 (101) 99 12/19/17 03:31 97 50 12/19/17 00:00 50 12/19/17 00:00 98.0 103 27 119/60 (79) 97 12/18/17 23:20 94 50 12/18/17 20:19 97 50 12/18/17 20:00 50 12/18/17 20:00 98.9 92 24 106/53 (70) 97 12/18/17 18:00 81 12/18/17 16:00 50 12/18/17 16:00 92 12/18/17 16:00 100.7 91 21 109/55 (73) 98 12/18/17 15:56 98 50 12/18/17 14:00 87 12/18/17 12:00 40 12/18/17 12:00 100.3 91 20 99/53 (68) 99 12/18/17 12:00 94 12/18/17 11:34 98 50 12/18/17 10:00 96 . Laboratory Tests Test 12/18/17 05:25 12/19/17 06:23 White Blood Count 12.1 TH/MM3 18.3 TH/MM3 Red Blood Count 3.75 MIL/MM3 3.56 MIL/MM3 Hemoglobin 11.5 GM/DL 10.6 GM/DL Hematocrit 33.7 % 31.8 % Mean Corpuscular Volume 89.9 FL 89.4 FL Mean Corpuscular Hemoglobin 30.7 PG 29.7 PG Mean Corpuscular Hemoglobin Concent 34.1 % 33.2 % Red Cell Distribution Width 13.3 % 13.3 % Platelet Count 175 TH/MM3 239 TH/MM3 Mean Platelet Volume 8.9 FL 9.0 FL Neutrophils (%) (Auto) 85.3 % 88.3 % Lymphocytes (%) (Auto) 9.9 % 5.5 % Monocytes (%) (Auto) 4.6 % 5.9 % Eosinophils (%) (Auto) 0.1 % 0.0 % Basophils (%) (Auto) 0.1 % 0.3 % Neutrophils # (Auto) 10.3 TH/MM3 16.2 TH/MM3 Lymphocytes # (Auto) 1.2 TH/MM3 1.0 TH/MM3 Monocytes # (Auto) 0.6 TH/MM3 1.1 TH/MM3 Eosinophils # (Auto) 0.0 TH/MM3 0.0 TH/MM3 Basophils # (Auto) 0.0 TH/MM3 0.1 TH/MM3 CBC Comment AUTO DIFF AUTO DIFF Differential Total Cells Counted 100 Neutrophils % (Manual) 49 % Band Neutrophils % 37 % Lymphocytes % 11 % Monocytes % 2 % Eosinophils % 1 % Neutrophils # (Manual) 10.4 TH/MM3 Differential Comment FINAL DIFF MANUAL Atypical Lymphocytes % Toxic Granulation 2+ Dohle Bodies PRESENT Platelet Estimate NORMAL Platelet Morphology Comment NORMAL Laboratory Tests Test 12/17/17 11:07 12/17/17 20:23 12/18/17 05:25 12/18/17 22:43 Phosphorus Level 2.2 MG/DL 1.9 MG/DL 1.3 MG/DL 1.7 MG/DL Blood Urea Nitrogen 10 MG/DL Creatinine 0.54 MG/DL Random Glucose 108 MG/DL Calcium Level 8.0 MG/DL Magnesium Level 2.3 MG/DL Sodium Level 145 MEQ/L Potassium Level 4.0 MEQ/L Chloride Level 113 MEQ/L Carbon Dioxide Level 22.4 MEQ/L Anion Gap 10 MEQ/L Estimat Glomerular Filtration Rate 122 ML/MIN Test 12/19/17 04:54 Blood Urea Nitrogen 9 MG/DL Creatinine 0.49 MG/DL Random Glucose 139 MG/DL Calcium Level 8.1 MG/DL Phosphorus Level 1.8 MG/DL Magnesium Level 2.2 MG/DL Sodium Level 148 MEQ/L Potassium Level 3.8 MEQ/L Chloride Level 115 MEQ/L Carbon Dioxide Level 24.3 MEQ/L Anion Gap 9 MEQ/L Estimat Glomerular Filtration Rate 136 ML/MIN Microbiology Date/Time Source Procedure Growth Status 12/19/17 06:23 Blood Peripheral Aerobic Blood Culture Pending Received 12/19/17 06:23 Blood Peripheral Anaerobic Blood Culture Pending Received 12/18/17 05:25 Blood Peripheral Aerobic Blood Culture Pending Resulted 12/18/17 05:25 Anaerobic Blood Culture - Preliminary Gram Positive Cocci Resulted 12/17/17 12:05 Blood Peripheral Aerobic Blood Culture - Preliminary Gram Positive Cocci Resulted 12/17/17 12:05 Anaerobic Blood Culture - Preliminary Gram Positive Cocci Resulted 12/16/17 17:11 Blood Peripheral Aerobic Blood Culture - Preliminary NO GROWTH IN 2 DAYS Resulted 12/16/17 17:11 Anaerobic Blood Culture - Preliminary S. Aureus Mrsa Resulted 12/16/17 17:06 Blood Peripheral Aerobic Blood Culture - Preliminary NO GROWTH IN 2 DAYS Resulted 12/16/17 17:06 Anaerobic Blood Culture - Preliminary Gram Positive Cocci Resulted 12/17/17 14:40 Nasal Washing Influenza Types A,B Antigen (ANTOINE) - Final NEGATIVE FOR FLU A AND B ANTIGEN.... Complete 12/16/17 15:50 Bronchial Washings Bronchial Gram Stain - Final Complete 12/16/17 15:50 Bronchial Culture - Final S. Aureus Mrsa Complete 12/16/17 16:50 Urine Clean Catch Streptococcus pneumoniae Antigen (M - Final PRESUMPTIVE NEGATIVE FOR STREPTOCOCCU... Complete 12/16/17 16:50 Urine Random Urine Legionella Antigen - Final PRESUMPTIVE NEGATIVE FOR LEGIONELLA P... Complete Imaging Chest X-Ray 12/17/17 0600 Signed Impressions: Service Date/Time: Sunday, December 17, 2017 03:12 - CONCLUSION: Unchanged bilateral infiltrates. Yomi Shipley Jr., MD Chest X-Ray 12/16/17 0000 Signed Impressions: Service Date/Time: Saturday, December 16, 2017 16:35 - CONCLUSION: 1. No significant pneumothorax identified on plain film post bronchoscopy. Endotracheal tube and basilar airspace disease not significantly changed. Malachi Hardin MD Chest X-Ray 12/16/17 0000 Signed Impressions: Service Date/Time: Saturday, December 16, 2017 15:22 - CONCLUSION: 1. Endotracheal tube in good position. Extensive pneumomediastinum. Dense consolidation in the lungs. Malachi Hardin MD CT Angiography 12/16/17 0000 Signed Impressions: Service Date/Time: Saturday, December 16, 2017 13:49 - CONCLUSION: 1. Negative for pulmonary emboli. 2. Dense consolidation in the lungs especially the lung bases with several cavitary lesions as above. Findings are most characteristic of pneumonia. Cannot exclude septic embolic disease. No significant effusion. Malachi Hardin MD Physical Exam GENERAL: Sedated, but awakens easily and follows commands, on the vent, NAD. SKIN: Warm and dry. No generalized rash, no ecchymoses and no evidence of embolic lesions. HEAD: Atraumatic. Normocephalic. No temporal wasting, or tenderness. EYES: Deport conjunctiva. No petechia or hemorrhage. Pupils equal, round and reactive to light. No scleral icterus. No injection or drainage. EARS, NOSE AND THROAT: Nose without bleeding or purulent nasal discharge. She is orally intubated. Mucous membranes pink and moist. NECK: Trachea midline. Supple and not tender, no meningeal signs CARDIOVASCULAR: Regular rate and rhythm. No murmurs, rubs or gallops heard RESPIRATORY: Coarse breath sounds bilaterally ABDOMEN: Soft, non-tender, nondistended. Bowel sounds present and normoactive. No guarding. No rebound. No organomegaly. EXTREMITIES: No clubbing, cyanosis, or edema. No joint effusion, has good ROM. No calf tenderness. Well perfused and warm. NEUROLOGICAL: Nonfocal, awakens easily PSYCHIATRIC: Calm and cooperative LINE: No evidence of infection Assessment & Plan Remarks IMPRESSION Sepsis present on admission, has MRSA on blood cultures Bilateral pneumonia, some with cavitation - C/S with MRSA Very worrisome for endocarditis Respiratory failure RECOMMENDATION Follow cultures and adjust antibiotics Change Vanco to Cubicin until clearing of BC Add Teflaro Stop Cefepime and Zithromax Will consult cardiology for JEANINE Follow temps Monitor progress Discussed with Liliam Ritchie MD Dec 19, 2017 09:55
[2017-12-19 10:12] LABS: BANDS 31 % (0-6); LYMPHOCYTES 9 % (9-44); MONOCYTES 6 % (0-8); MYELOCYTES 2 % (0-0); NEUTROPHIL # MANUAL DIFF 15.6 TH/MM3 (1.8-7.7); POLYS (SEG NEUTROPHILS) 52 % (16-70); TOXIC GRANULATION 1+ (NORMAL)
--- NOTE | 2017-12-19 10:20 | HHI.CCPN ---
Subjective Remarks/Hospital Course This is a 47-year-old female with a history of anxiety disorder, that presented to [facility] on with complaints of chest pain and dyspnea that has been lasting for the past 4 days. The patient was transferred to [facility]. Imaging and laboratory studies were initially performed which showed a chest x-ray with bilateral patchy airspace consolidation consistent with bronchial pneumonia, and her lactic acid level was noted to be 3.1. The patient's oxygen requirements continue to increase the patient became tachypneic with a respiratory rate in the 40s and tachycardic, heart rate in the 120s. Pulmonology was consulted, CT was performed which revealed no pulmonary emboli , will several cavitary lesions, dense consolidation at both lung bases, air bronchograms and extensive pneumomediastinum extending into the lower neck and upper chest .ICU was requested to see patient. Upon observation the patient was severely dyspneic, with significant accessory muscle movement, violently coughing hemoptysis. Decision made to intubate patient for airway protection. 12/17 Patient is sedated with Diprivan and versed infusion. afebrile. s/p bronch yesterday by Dr. Klein. 12/18 Patient remains sedated with Versed 10mg/hr and Fentanyl 250 mics. Tmax 102.1 yesterday. + MRSA in bronch and GPC/MRSA from [facility] 12/15 from [facility] 12/19: Patient developed respiratory distress and SVT this am with vent dyssynchrony with air trapping and elevated peak pressure. FiO2 increased to 100%, started on Nimbex infusion. Intermittently tachycardic, occasional bradycardia also. EKG shows sinus rhythm. Patient is very critical now. Will consult cardiology for JEANINE, and also regarding SVT. Chest x-ray shows worsening bilateral infiltrates concerning for ARDS Objective Vital Signs Date Time Temp Pulse Resp B/P (MAP) Pulse Ox O2 Delivery O2 Flow Rate FiO2 12/19/17 07:42 100 80 12/19/17 04:00 99.2 125 54 161/71 (101) Intake and Output 12/19/17 12/19/17 12/20/17 08:00 16:00 00:00 Intake Total 3026 ml Output Total 950 ml Balance 2076 ml Result Diagram: 12/19/17 0623 12/19/17 0454 Other Results Microbiology Date/Time Source Procedure Growth Status 12/17/17 14:40 Nasal Washing Influenza Types A,B Antigen (ANTOINE) - Final NEGATIVE FOR FLU A AND B ANTIGEN.... Complete 12/16/17 15:50 Bronchial Washings Bronchial Gram Stain - Final Complete 12/16/17 15:50 Bronchial Culture - Final S. Aureus Mrsa Complete 12/16/17 16:50 Urine Clean Catch Streptococcus pneumoniae Antigen (M - Final PRESUMPTIVE NEGATIVE FOR STREPTOCOCCU... Complete 12/16/17 16:50 Urine Random Urine Legionella Antigen - Final PRESUMPTIVE NEGATIVE FOR LEGIONELLA P... Complete Laboratory Tests Test 12/19/17 05:11 12/19/17 09:24 Blood Gas Puncture Site RT RADIAL Blood Gas Patient Temperature 98.6 Blood Gas HCO3 24 mmol/L (22-26) Blood Gas Base Excess -0.2 mmol/L (-2-2) Blood Gas Oxygen Saturation 98 % (90-100) Arterial Blood pH 7.37 (7.380-7.420) Arterial Blood Partial Pressure CO2 44 mmHg (38-42) Arterial Blood Partial Pressure O2 290 mmHg (61-120) Arterial Blood Oxygen Content 15.2 Vol % (12.0-20.0) Arterial Blood Carboxyhemoglobin 0.5 % (0-4) Arterial Blood Methemoglobin 1.1 % (0-2) Blood Gas Hemoglobin 10.5 G/DL (12.0-16.0) Oxygen Delivery Device [facility] Blood Gas Inspired Oxygen 100 % Imaging Last Impressions Chest X-Ray 12/17/17 0600 Signed Impressions: Service Date/Time: Sunday, December 17, 2017 03:12 - CONCLUSION: Unchanged bilateral infiltrates. Yomi Shipley Jr., MD CT Angiography 12/16/17 0000 Signed Impressions: Service Date/Time: Saturday, December 16, 2017 13:49 - CONCLUSION: 1. Negative for pulmonary emboli. 2. Dense consolidation in the lungs especially the lung bases with several cavitary lesions as above. Findings are most characteristic of pneumonia. Cannot exclude septic embolic disease. No significant effusion. Malachi Hardin MD Objective Remarks GENERAL: Patient is 47 yo intubated and sedated, now on neuromuscular paralysis SKIN: Warm and dry. HEAD: Normocephalic. EYES: No scleral icterus. No injection or drainage. ENT: Orotracheally intubated NECK: Supple, trachea midline. No JVD or lymphadenopathy. CARDIOVASCULAR: Intermittent sinus tachycardia and bradycardia. No murmurs, gallops, or rubs. RESPIRATORY: Breath sounds equal bilaterally. Bilateral coarse rhonchi and wheezes GASTROINTESTINAL: Abdomen soft, non-tender, nondistended. MUSCULOSKELETAL: No cyanosis, or edema. 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 FiO2 currently increased to 100% and neuromuscular paralysis Continue low tidal volume ventilation per ARDSnet protocol Consider prone therapy if not improved CXR 12/17- b/l pulm infiltrates, no PTX ( unchanged) CXR 12/19: Severe worsening bibasilar infiltrates indicate you have ARDS 12/16 -CT Angio - extensive pneumomediastinum extending into neck and upper chest. Dense consolidation at both lung bases, air bronchograms , 2 cavitary lesions Ventilator bundle, no breathing trials or sedation medication due to neuromuscular paralysis Duo nebs every 4 hours scheduled every 2 hours PRN Pulmonology following 12/16-bronchoscopy performed by Dr. Klein, no active sites noted for bleeding, moderate purulent mucus bilaterally noted 2 BAL samples sent CTS is following for Pneumomediastinum- Discussed with Dr. Guadarrama yesterday no intervention at this time. Cardiovascular: Possible tachybradycardia syndrome SVT Probable infective endocarditis Monitor HR and BP keep MAP>65mmHg Cardiology consulted for SVT and for JEANINE The infectious disease section for antibiotics Lactic acid 1.5 Echo showed EF 60-65% Renal: Monitor renal function, electrolytes replacement per protocol. 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 Severe sepsis 12/15 [facility] from [facility]- MRSA/GPC 12/16 Bronch BAL- MRSA BC 12/16, 12/18: MRSA ABX per ID: Changed Vanco to Cubicin, Added Teflaro 12/19 Discontinue cefepime and Zithromax Multiple recurrent bacteremia with MRSA concerning for endocarditis JEANINE and cardiology consult ordered influenza, pneumococcal and Legionella antigens- Negative Continue abx cefepime, azithromycin and vancomycin , ID is following ID consulted follow-up recommendations Heme: Monitor CBC Endocrine: Glucose monitoring per ICU protocol-low dose regimen -- SSI Prophylaxis: GI Prophylaxis Famotidine IV DVT Prophylaxis -- SCDs -heparin SQ Lines: Peripheral IVs providing adequate access. CCT 82 MIN Patient is critically ill at this time. She required multiple ventilator adjustments and neuromuscular paralysis to maintain oxygenation and to reduce peak pressures to safe range. Chest x-ray and clinical picture consistent with ARDS and severe sepsis. Initiate low tidal volume ventilation minimize lung injury, may need prone therapy. Need JEANINE to rule out endocarditis. Clinical picture is complicated also by tachycardia/bradycardia and intermittent SVT. Prognosis is guarded at this time Problem Qualifiers (1) Sepsis: Qualified Codes: A41.9 - Sepsis, unspecified organism Maribel Pal MD Dec 19, 2017 10:20
[2017-12-19] MEDS: CEFTAROLINE INJ 600 MG in SODIUM CHLORIDE 0.9% INJ 100 ML IV SCH ×2 (10:36→20:55)
[2017-12-19] MEDS ORDERED: PHARMACY ORDERED LAB ONE (11:45)
[2017-12-19] MEDS: DAPTOmycin INJ 500 MG in SODIUM CHLORIDE 0.9% INJ 100 ML IV SCH (11:54)
--- NOTE | 2017-12-19 16:55 | HHI.PR ---
Subjective Remarks on the ventilator sedated Objective Vital Signs Date Time Temp Pulse Resp B/P (MAP) Pulse Ox O2 Delivery O2 Flow Rate FiO2 12/19/17 16:00 60 12/19/17 15:45 100 12/19/17 15:30 83 12/19/17 15:15 96 12/19/17 15:00 89 12/19/17 14:45 94 12/19/17 14:30 88 12/19/17 14:30 88 23 131/61 (84) 96 12/19/17 14:15 102 12/19/17 14:15 102 25 116/56 (76) 97 12/19/17 14:07 95 60 12/19/17 14:00 92 12/19/17 14:00 92 17 145/67 (93) 95 12/19/17 13:55 94 60 12/19/17 13:45 158 19 144/58 (86) 95 12/19/17 13:30 81 22 166/68 (100) 94 12/19/17 13:15 140 17 151/64 (93) 93 12/19/17 13:00 147 18 154/69 (97) 92 12/19/17 13:00 147 12/19/17 12:45 161 12/19/17 12:45 161 20 175/108 (130) 93 12/19/17 12:30 99 12/19/17 12:30 99 19 168/108 (128) 94 12/19/17 12:15 51 17 163/64 (97) 98 12/19/17 12:15 51 12/19/17 12:00 99.4 87 24 146/67 (93) 98 12/19/17 12:00 87 12/19/17 12:00 60 12/19/17 11:45 86 12/19/17 11:45 86 30 125/58 (80) 98 12/19/17 11:30 82 30 113/53 (73) 99 12/19/17 11:30 82 12/19/17 11:15 91 27 118/58 (78) 99 12/19/17 11:15 91 12/19/17 11:01 93 23 114/51 (72) 100 12/19/17 11:01 93 12/19/17 11:00 96 28 99 12/19/17 11:00 96 12/19/17 10:30 95 12/19/17 10:30 95 25 104/53 (70) 98 12/19/17 10:00 102 12/19/17 10:00 102 28 116/59 (78) 99 12/19/17 09:30 98 12/19/17 09:30 98 27 115/59 (77) 99 12/19/17 09:00 83 26 136/60 (85) 100 12/19/17 09:00 83 12/19/17 08:40 101 25 126/58 (80) 100 12/19/17 08:30 129 24 122/57 (78) 100 12/19/17 08:30 129 12/19/17 08:00 100 12/19/17 08:00 109 12/19/17 08:00 99.0 109 26 122/57 (78) 100 12/19/17 07:42 100 80 12/19/17 07:30 110 25 120/57 (78) 100 12/19/17 07:30 110 12/19/17 07:00 113 12/19/17 07:00 113 25 120/56 (77) 100 12/19/17 04:00 50 12/19/17 04:00 99.2 125 54 161/71 (101) 99 12/19/17 03:31 97 50 12/19/17 00:00 50 12/19/17 00:00 98.0 103 27 119/60 (79) 97 12/18/17 23:20 94 50 12/18/17 20:19 97 50 12/18/17 20:00 50 12/18/17 20:00 98.9 92 24 106/53 (70) 97 12/18/17 18:00 81 I/O 12/18/17 12/18/17 12/18/17 12/19/17 12/19/17 12/19/17 07:00 15:00 23:00 07:00 15:00 23:00 Intake Total 2543 ml 1352 ml 3472 ml 1100 ml Output Total 700 ml 2300 ml 950 ml Balance 1843 ml -948 ml 2522 ml 1100 ml Intake Oral 0 ml IV Total 2005 ml 833 ml 2962 ml 1100 ml Tube Feeding 538 ml 519 ml 510 ml Output Urine Total 700 ml 2300 ml 950 ml # Bowel Movements 0 1 1 Result Diagram: 12/19/17 06 12/19/17 0454 Procedures BiPAP Objective Remarks GENERAL: SKIN: Warm and dry. HEAD: Atraumatic. Normocephalic. EYES: Pupils equal and round. No scleral icterus. No injection or drainage. ENT: No nasal bleeding or discharge. Mucous membranes pink and moist. NECK: Trachea midline. No JVD. CARDIOVASCULAR: Regular rate and rhythm. RESPIRATORY: No accessory muscle use. Clear to auscultation. Breath sounds equal bilaterally. GASTROINTESTINAL: Abdomen soft, non-tender, nondistended. Hepatic and splenic margins not palpable. MUSCULOSKELETAL: Extremities without clubbing, cyanosis, or edema. No obvious deformities. NEUROLOGICAL: Awake and alert. No obvious cranial nerve deficits. Motor grossly within normal limits. Five out of 5 muscle strength in the arms and legs. Normal speech. PSYCHIATRIC: Appropriate mood and affect; insight and judgment normal. Assessment and Plan Assessment and Plan imp: respiratory failure pna pneumomdiastinum, stable attempt at weaning no successful plan vent support antibx pulm toilet wean as tolerated Ileana Tejeda MD Dec 19, 2017 16:55
--- NOTE | 2017-12-19 18:00 | MB ---
cc: Valorie Bray MD, Otakar MD DATE OF CONSULT: 12/19/2017 HISTORY OF PRESENT ILLNESS: Ms. Guzman is a 47-year-old white female who presented initially with chest pain, shortness of breath and productive cough. Her chest x-ray showed bilateral infiltrates with cavitary lesions. She also had hemoptysis. She was diagnosed with respiratory failure and was intubated and placed on the ventilator. She has had episodes of atrial fibrillation with rapid ventricular response and also episodes of bradycardia. She has been treated for pneumonia. Transesophageal echocardiogram is requested to evaluate for endocarditis due to persistent bacteremia. PAST MEDICAL HISTORY: Positive for anxiety, history of cholecystectomy and hysterectomy. ALLERGIES: NONE. MEDICATIONS: Includes daptomycin, Duo-Neb p.r.n. SOCIAL HISTORY: The patient does not smoke. She does not drink alcohol. She smokes marijuana. FAMILY HISTORY: Positive for heart disease. REVIEW OF SYSTEMS: Otherwise negative. PHYSICAL EXAMINATION: VITAL SIGNS: Blood pressure 131/61, pulse 100 and regular. HEENT: The patient is intubated and sedated, 2+ carotid upstrokes. LUNGS: Clear. HEART: Regular with no murmur or gallop. ABDOMEN: Soft, no bruits. EXTREMITIES: Without edema. Distal pulses 2+. NEUROLOGIC: Grossly nonfocal. The patient is sedated. EKG was reviewed and showed atrial fibrillation/flutter with rapid ventricular response. Followup EKG showed this spontaneously converted to sinus tachycardia. LABORATORY DATA: Hemoglobin 10.6. Potassium 3.8, creatinine 0.5. Troponin less than 0.02. DIAGNOSES: 1. Sepsis. 2. Methicillin-resistant Staphylococcus aureus bacteremia, persistent. 3. Acute hypoxemic respiratory failure. 4. Acute respiratory distress syndrome. 5. Cavitating pneumonia. 6. Anxiety. 7. Paroxysmal atrial fibrillation. 8. Paroxysmal sinus bradycardia. DISPOSITION: Ms. Guzman will undergo transesophageal echocardiogram tomorrow to evaluate for endocarditis. We will start sotalol per NG tube for the management of her paroxysmal atrial fibrillation. She will be monitored in the ICU. We will continue ventilatory support. I will follow her for cardiology during her hospitalization. Valorie Bray MD [email or web address] , 05:05 PM , 05:31 PM HAYES
[2017-12-19] MEDS: SOTALOL HCL 80 MG TAB PEG SCH (20:55)
[2017-12-19] MEDS: RESP: ALBUTEROL 2.5 MG/IPRATROPIUM 0.5 MG NEB (PRN) NEB (21:02)
--- NOTE | 2017-12-19 22:59 | EKG ---
Date Performed: 12/19/2017 Time Performed: 08:39:48 PTAGE: 47 years EKG: SINUS TACHYCARDIA ABNORMAL RHYTHM ECG PREVIOUS TRACING : 12/19/2017 05.21 Compared to previous tracing sVT is no longer present DOCTOR: Dc Sher Interpretating Date/Time 12/19/2017 22:58:48
--- NOTE | 2017-12-19 23:05 | EKG ---
Date Performed: 12/19/2017 Time Performed: 05:21:36 PTAGE: 47 years EKG: SVT Lateral ST changes are nonspecific Borderline ECG NO PREVIOUS TRACING DOCTOR: Dc Sher Interpretating Date/Time 12/19/2017 23:05:01
[2017-12-20] VITALS (47 sets, daily range): BP systolic 110–190; BP diastolic 51–81; PULSE 65–96; RESP 16–27; TEMP 98.4–102; O2SAT 89–98
[2017-12-20] MEDS: RESP: ALBUTEROL 2.5 MG/IPRATROPIUM 0.5 MG NEB (SCH) INH ×5 (03:25→19:37)
[2017-12-20] MEDS: HEPARIN SODIUM - SQ 10,000 UNITS/ML VIAL SQ SCH ×3 (04:00→20:11)
--- NOTE | 2017-12-20 04:00 | RADRPT ---
EXAM DATE/TIME: 12/20/2017 02:14 [place] COMPARISON: CHEST SINGLE AP, December 19, 2017, 4:53. INDICATIONS : Shortness of breath, possible pulmonary disease. MEDICAL HISTORY : Hypertension. SURGICAL HISTORY : Cholecystectomy. ENCOUNTER: Subsequent ACUITY: 1 week PAIN SCORE: Non-responsive. LOCATION: Bilateral chest FINDINGS: Bilateral pulmonary infiltrates are unchanged. No effusions. Heart is normal in size. Tip of the endo tracheal tube 5 cm from the magdalena. Nasogastric tube tip courses off the inferior margin of the film. CONCLUSION: Unchanged bilateral pulmonary infiltrates. Yomi Shipley Jr., MD on December 20, 2017 at 3:58 Board Certified Radiologist. This report was verified electronically.
[2017-12-20] MEDS: FAMOTIDINE 20 MG/2 ML VIAL IV PUSH SCH ×2 (04:27→16:43)
[2017-12-20 05:53] LABS: AUTOMATED NEUTROPHIL # 14.7 TH/MM3 (1.8-7.7); BASOPHIL # 0.1 TH/MM3 (0-0.2); BASOPHIL % 0.4 % (0.0-2.0); HEMATOCRIT 29.5 % (35.0-46.0); HEMOGLOBIN 9.9 GM/DL (11.6-15.3); LYMPH % 5.2 % (9.0-44.0); LYMPHOCYTE # 0.9 TH/MM3 (1.0-4.8); MEAN CELL VOLUME 88.7 FL (80.0-100.0); MEAN CORPUSCULAR HEMOGLOBIN 29.7 PG (27.0-34.0); MEAN CORPUSCULAR HGB CONC 33.4 % (32.0-36.0); MEAN PLATELET VOLUME 9.1 FL (7.0-11.0); MONO % 5.4 % (0.0-8.0); MONOCYTE # 0.9 TH/MM3 (0-0.9); PLATELET COUNT 257 TH/MM3 (150-450); RED BLOOD COUNT 3.32 MIL/MM3 (4.00-5.30); RED CELL DISTRIBUTION WIDTH 13.5 % (11.6-17.2); WHITE BLOOD COUNT 16.5 TH/MM3 (4.0-11.0)
[2017-12-20] MEDS: fentaNYL DRIP 250 ML IV PRN ×2 (06:09→16:55)
[2017-12-20 06:11] LABS: ALBUMIN 1.4 GM/DL (3.4-5.0); ALT (GPT) 29 U/L (10-53); AST (GOT) 34 U/L (15-37); BICARBONATE 31.3 MEQ/L (21.0-32.0); BLOOD UREA NITROGEN 11 MG/DL (7-18); CALCIUM 8.1 MG/DL (8.5-10.1); CHLORIDE 116 MEQ/L (98-107); CREATININE 0.44 MG/DL (0.50-1.00); GLOMERULAR FILTRATION RATE 154 ML/MIN (>89); GLUCOSE,RANDOM 109 MG/DL (74-106); MAGNESIUM 2.4 MG/DL (1.5-2.5); SODIUM (NA) 153 MEQ/L (136-145)
[2017-12-20 06:13] LABS: ALKALINE PHOSPHATASE 151 U/L (45-117); TOTAL BILIRUBIN ADULT 0.4 MG/DL (0.2-1.0)
[2017-12-20] MEDS: CEFTAROLINE INJ 600 MG in SODIUM CHLORIDE 0.9% INJ 100 ML IV SCH ×2 (08:33→21:19)
[2017-12-20] MEDS: MIDAZOLAM 100 MG/100 ML INJ 100 ML IV PRN ×2 (08:33→16:56)
[2017-12-20] MEDS: DOCUSATE SODIUM 50 MG/SENNA 8.6 MG TAB PO SCH ×2 (08:34→20:10)
[2017-12-20] MEDS: SOTALOL HCL 80 MG TAB PEG SCH ×2 (08:34→20:10)
[2017-12-20] MEDS: SODIUM CHLORIDE 0.9% FLUSH 10 ML FLUSH IV FLUSH SCH ×2 (08:34→20:10)
[2017-12-20] MEDS: CHLORHEXIDINE 0.12% (ORAL KIT) 15 ML CUP MT SCH ×2 (08:35→20:11)
[2017-12-20] MEDS: CISATRACURIUM INJ 100 MG in SODIUM CHLOR 0.9% 250 ML INJ 250 ML IV PRN (09:01)
[2017-12-20 09:02] LABS: BANDS 27 % (0-6); LYMPHOCYTES 4 % (9-44); MONOCYTES 5 % (0-8); MYELOCYTES 1 % (0-0); POLYS (SEG NEUTROPHILS) 63 % (16-70); TOXIC GRANULATION 2+ (NORMAL); TOXIC VACUOLATION PRESENT (NONE SEEN)
[2017-12-20] MEDS: RESP: ALBUTEROL 2.5 MG/IPRATROPIUM 0.5 MG NEB (PRN) NEB (09:17)
[2017-12-20] MEDS ORDERED: ROCURONIUM INJ 50 MG/5 ML VIAL IV PRN (09:45)
--- NOTE | 2017-12-20 10:03 | HHI.CCPN ---
Subjective Remarks/Hospital Course This is a 47-year-old female with a history of anxiety disorder, that presented to [facility] on with complaints of chest pain and dyspnea that has been lasting for the past 4 days. The patient was transferred to [facility]. Imaging and laboratory studies were initially performed which showed a chest x-ray with bilateral patchy airspace consolidation consistent with bronchial pneumonia, and her lactic acid level was noted to be 3.1. The patient's oxygen requirements continue to increase the patient became tachypneic with a respiratory rate in the 40s and tachycardic, heart rate in the 120s. Pulmonology was consulted, CT was performed which revealed no pulmonary emboli , will several cavitary lesions, dense consolidation at both lung bases, air bronchograms and extensive pneumomediastinum extending into the lower neck and upper chest .ICU was requested to see patient. Upon observation the patient was severely dyspneic, with significant accessory muscle movement, violently coughing hemoptysis. Decision made to intubate patient for airway protection. 12/17 Patient is sedated with Diprivan and versed infusion. afebrile. s/p bronch yesterday by Dr. Klein. 12/18 Patient remains sedated with Versed 10mg/hr and Fentanyl 250 mics. Tmax 102.1 yesterday. + MRSA in bronch and GPC/MRSA from [facility] 12/15 from [facility] 12/19: Patient developed respiratory distress and SVT this am with vent dyssynchrony with air trapping and elevated peak pressure. FiO2 increased to 100%, started on Nimbex infusion. Intermittently tachycardic, occasional bradycardia also. EKG shows sinus rhythm. Patient is very critical now. Will consult cardiology for JEANINE, and also regarding SVT. Chest x-ray shows worsening bilateral infiltrates concerning for ARDS 12/20: Remains intubated heavily sedated and neuromuscularly paralyzed to maintain ventilator synchrony and control peak pressures. Chest x-ray shows persistent bilateral infiltrates. JEANINE planned for today. All cultures so far positive for MRSA. Tachy Arrhythmia is better controlled after starting sotalol Objective Vital Signs Date Time Temp Pulse Resp B/P (MAP) Pulse Ox O2 Delivery O2 Flow Rate FiO2 12/20/17 09:00 78 16 175/75 (108) 89 12/20/17 08:00 100.3 3/15/18 07:28 50 Intake and Output 12/20/17 12/20/17 12/21/17 08:00 16:00 00:00 Intake Total 13.2 ml 360 ml Output Total 850 ml Balance -836.8 ml 360 ml Result Diagram: 12/20/17 0350 12/20/17 0350 Other Results Microbiology Date/Time Source Procedure Growth Status 12/17/17 12:05 Blood Peripheral Aerobic Blood Culture - Final S. Aureus Mrsa Complete 12/17/17 12:05 Anaerobic Blood Culture - Final S. Aureus Mrsa Complete 12/17/17 14:40 Nasal Washing Influenza Types A,B Antigen (ANTOINE) - Final NEGATIVE FOR FLU A AND B ANTIGEN.... Complete Imaging Last Impressions Chest X-Ray 12/17/17 0600 Signed Impressions: Service Date/Time: Sunday, December 17, 2017 03:12 - CONCLUSION: Unchanged bilateral infiltrates. Yomi Shipley Jr., MD CT Angiography 12/16/17 0000 Signed Impressions: Service Date/Time: Saturday, December 16, 2017 13:49 - CONCLUSION: 1. Negative for pulmonary emboli. 2. Dense consolidation in the lungs especially the lung bases with several cavitary lesions as above. Findings are most characteristic of pneumonia. Cannot exclude septic embolic disease. No significant effusion. Malachi Hardin MD Objective Remarks GENERAL: Patient is 47 yo intubated and sedated, neuromuscular paralysis. Critically ill SKIN: Warm and dry. HEAD: Normocephalic. EYES: No scleral icterus. No injection or drainage. ENT: Orotracheally intubated NECK: Supple, trachea midline. No JVD or lymphadenopathy. CARDIOVASCULAR: Intermittent sinus tachycardia and bradycardia. No murmurs, gallops, or rubs. RESPIRATORY: Breath sounds equal bilaterally. Bilateral coarse rhonchi and wheezes. GASTROINTESTINAL: Abdomen soft, non-tender, nondistended. MUSCULOSKELETAL: No cyanosis, or edema. 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 Discontinue Nimbex and use as needed rocuronium 12/20 as patient is getting started on IV steroids UDS: + benzos, cannabinoids Tylenol for fever, and pain 1-5, also on Toradol as needed Respiratory: Acute hypoxemic respiratory failure ARDS Small right Pneumothorax Pneumomediastinum Hemoptysis Continue with vent support keep sats >92%. FiO2 at 50%, PEEP 8 and continue neuromuscular paralysis as above Continue low tidal volume ventilation per ARDSnet protocol. Consider prone therapy if not improved Duo nebs every 4 hours scheduled every 2 hours PRN. Pulmonology following IV Solu-Medrol 60 every 8 hours due to continued bilateral wheezing Ventilator bundle, no breathing trials or sedation medication due to neuromuscular paralysis CXR 12/17- b/l pulm infiltrates, no PTX ( unchanged) CXR 12/19: Severe worsening bibasilar infiltrates indicate ARDS 12/16 -CT Angio - extensive pneumomediastinum extending into neck and upper chest. Dense consolidation at both lung bases, air bronchograms , 2 cavitary lesions 12/16-bronchoscopy performed by Dr. Klein, no active sites noted for bleeding, moderate purulent mucus bilaterally noted 2 BAL samples sent CTS is following for Pneumomediastinum-per Dr. Guadarrama no intervention at this time. Cardiovascular: Paroxysmal atrial fibrillation SVT Probable infective endocarditis Started on sotalol by Dr. dupree yesterday Monitor HR and BP keep MAP>65mmHg Transesophageal echocardiogram plan for today The infectious disease section for antibiotics Lactic acid 1.5 Echo showed EF 60-65% Renal: Monitor renal function, electrolytes replacement per protocol. 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 CCT 42 MIN Patient is critically ill at this time. She is requiring high ventilator support and neuromuscular paralysis to maintain oxygenation and to reduce peak pressures to safe range. Chest x-ray and clinical picture consistent with ARDS and severe sepsis. JEANINE to rule out endocarditis. Prognosis is guarded at this time Problem Qualifiers (1) Sepsis: Qualified Codes: A41.9 - Sepsis, unspecified organism Maribel Pal MD Dec 20, 2017 10:03
[2017-12-20] MEDS: SODIUM CHLOR 0.9% 1000 ML INJ 1,000 ML IV SCH (11:25)
[2017-12-20] MEDS: methylPREDNISolone SOD SUCC 125 MG/2 ML VIAL IV PUSH SCH ×2 (11:39→16:42)
[2017-12-20] MEDS: DAPTOmycin INJ 500 MG in SODIUM CHLORIDE 0.9% INJ 100 ML IV SCH (11:39)
[2017-12-20] MEDS: SODIUM CHLOR 0.45% 1000 ML INJ 1,000 ML IV SCH (11:43)
[2017-12-20] MEDS: ACETAMINOPHEN 325 MG TAB PO PRN ×2 (11:56→16:42)
[2017-12-20] MEDS ORDERED: RESP: ALBUTEROL 2.5 MG/IPRATROPIUM 0.5 MG NEB (SCH) NEB (12:00)
--- NOTE | 2017-12-20 12:39 | HHI.IDPN ---
Subjective Subjective Remarks Patient is a 47-year-old female, who initially presented to the [facility] ED complaining of 4 day history of chest pain and shortness of breath. In have any other history. She was apparently coughing and was bringing up some brownish phlegm. There was no mention of any fever or chills. No nausea or vomiting. No urinary complaints. Chest x-ray showed bilateral patchy basilar infiltrates. CTA did not show any pulmonary embolism, showed bilateral infiltrates with some cavitary lesions noted. She was transferred to the main hospital, and she apparently had some blood in the sputum. She ended up getting intubated. [facility] did bronchoscopy on her. Patient currently sedated postintubation. Her blood pressure is okay and she is not hypotensive. She is tachycardic. Infectious disease consultation has been requested to evaluate the patient with pneumonia Notes reviewed Temps low grade On vent, sedated and low dose paralytic FiO2 at 0.5 All BC with MRSA 12/15-12/18 BP okay, not on pressors Having different types of arrhythmia on the monitor TTE valves ok, but AV not see JEANINE scheduled for today Antibiotics Benji garcia Current Medications Medications (Trade) Dose Ordered Sig/Marily Route Start Time Stop Time Status Last Admin (NS Flush) 2 ml UNSCH PRN IV FLUSH 12/15/17 22:30 (NS Flush) 2 ml BID IV FLUSH 12/16/17 09:00 12/20/17 08:34 (Robitussin Dm 200-20 Mg/10 ml Liq) 10 ml Q4H PRN PO 12/15/17 22:30 Future Hold (Toradol Inj) 15 mg Q6HR PRN IV PUSH 12/16/17 04:15 12/21/17 04:14 12/16/17 07:12 (Heparin Inj) 5,000 units Q8H SQ 12/16/17 12:00 12/20/17 11:39 (Morphine Inj) 1 mg Q4H PRN IM 12/16/17 09:15 Future Hold 12/16/17 10:11 (Mucinex Er) 600 mg BID PO 12/16/17 09:15 Future Hold 12/16/17 10:51 Propofol 100 ml @ 2.1 mls/hr TITRATE PRN IV 12/16/17 14:45 12/16/17 16:00 Fentanyl Citrate 250 ml @ 5 mls/hr TITRATE PRN IV 12/16/17 16:30 12/20/17 06:09 (Pepcid Inj) 20 mg Q12H IV PUSH 12/16/17 17:00 12/20/17 04:27 (Tylenol) 650 mg Q6H PRN PO 12/16/17 16:45 12/20/17 11:56 Miscellaneous Information 1 [id number] XX 12/16/17 16:45 (Chlorhexidine 2% Cloth) 3 pack Taper DAILY@04 TOP 12/17/17 04:00 12/13/18 03:59 12/19/17 20:55 (Chlorhexidine 2% Cloth) 3 pack UNSCH PRN TOP 12/16/17 16:45 (Florinda-Colace) 1 tab BID PO 12/16/17 21:00 12/19/17 20:52 (Milk Of Magnesia Liq) 30 ml Q12H PRN PO 12/16/17 16:45 (Senokot) 17.2 mg Q12H PRN PO 12/16/17 16:45 (Dulcolax Supp) 10 mg DAILY PRN RECTAL 12/16/17 16:45 (Lactulose Liq) 30 ml DAILY PRN PO 12/16/17 16:45 (Peridex 0.12% Liq) 15 ml BID@08,20 MT 12/16/17 20:00 12/20/17 08:35 Midazolam HCl 100 ml @ 2 mls/hr TITRATE PRN IV 12/16/17 17:30 12/20/17 08:33 Potassium Chloride 100 ml @ 50 mls/hr Q2H PRN IV 12/17/17 07:45 Potassium Chloride 100 ml @ 50 mls/hr Q2H PRN IV 12/17/17 07:45 (K-Lyte Cl Eff) 50 meq UNSCH PRN PO 12/17/17 07:45 Potassium Chloride 100 ml @ 25 mls/hr UNSCH PRN IV 12/17/17 07:45 Potassium Chloride 100 ml @ 50 mls/hr Q2H PRN IV 12/17/17 07:45 Magnesium Sulfate 4 gm/Sodium Chloride 100 ml @ 50 mls/hr UNSCH PRN IV 12/17/17 07:45 (Mag-Ox) 800 mg UNSCH PRN PO 12/17/17 07:45 Magnesium Sulfate 2 gm/Sodium Chloride 100 ml @ 50 mls/hr UNSCH PRN IV 12/17/17 07:45 (K-Phos) 2,000 mg Q4H PRN PO 12/17/17 07:45 12/17/17 23:49 Sodium Phosphate 30 mmol/Sodium Chloride 250 ml @ 42 mls/hr UNSCH PRN IV 12/17/17 07:45 12/18/17 08:40 (K-Phos) 2,000 mg UNSCH PRN PO/TUBE 12/17/17 07:45 Potassium Phosphate 30 mmol/ Sodium Chloride 260 ml @ 42 mls/hr UNSCH PRN IV 12/17/17 07:45 12/19/17 07:57 (Ativan Inj) 1 mg Q4H PRN IV 12/18/17 16:15 Ceftaroline Fosamil 600 mg/ Sodium Chloride 100 ml @ 100 mls/hr Q12H IV 12/19/17 10:00 12/20/17 08:33 Daptomycin 500 mg/ Sodium Chloride 100 ml @ 200 mls/hr Q24H IV 12/19/17 12:00 12/20/17 11:39 (Duoneb Neb) 1 ampule Q2HR NEB PRN NEB 12/19/17 10:30 12/20/17 09:17 (Betapace) 80 mg Q12HR PEG 12/19/17 21:00 12/20/17 08:34 (Duoneb Neb) 1 ampule Q4HR NEB INH 12/20/17 12:00 12/20/17 11:29 (SoluMEDROL INJ) 60 mg Q8H IV PUSH 12/20/17 10:00 12/20/17 11:39 Sodium Chloride 1,000 ml @ 42 mls/hr [id number] IV 12/20/17 09:45 12/20/17 11:43 (Zemuron Inj) 50 mg Q6H PRN IV 12/20/17 09:45 12/23/17 09:44 Lines PIV Past Medical History Anxiety Past Surgical History Cholecystectomy Hysterectomy Allergies: Coded Allergies: No Known Allergies (Unverified , 12/15/17) Objective . Vital Signs Date Time Temp Pulse Resp B/P (MAP) Pulse Ox O2 Delivery O2 Flow Rate FiO2 12/20/17 12:35 92 60 12/20/17 11:30 97 50 12/20/17 09:00 78 16 175/75 (108) 89 12/20/17 08:45 74 24 129/63 (85) 91 12/20/17 08:30 71 22 137/55 (82) 92 12/20/17 08:15 75 22 137/64 (88) 93 12/20/17 08:00 100.3 76 21 133/60 (84) 92 12/20/17 07:45 71 20 133/60 (84) 92 12/20/17 07:30 74 19 127/62 (83) 96 12/20/17 07:28 98 50 12/20/17 07:15 75 19 129/57 (81) 92 12/20/17 07:00 65 20 127/62 (83) 92 12/20/17 06:00 65 12/20/17 04:11 96 50 12/20/17 04:00 73 12/20/17 04:00 98.4 73 20 110/57 (74) 96 12/20/17 04:00 50 12/20/17 02:00 80 12/20/17 01:20 95 50 12/20/17 00:00 79 12/20/17 00:00 50 12/20/17 00:00 99.5 79 18 120/58 (78) 96 12/19/17 22:00 74 12/19/17 21:02 92 50 12/19/17 20:00 75 12/19/17 20:00 50 12/19/17 20:00 99.8 75 18 115/56 (75) 95 12/19/17 18:00 77 18 104/61 (75) 97 18 18:00 77 12/19/17 17:45 83 18 111/53 (72) 97 18 17:45 83 18 17:30 79 18 17:30 79 18 98/52 (67) 97 18 17:15 82 18 111/55 (73) 96 12/19/17 17:15 82 18 17:00 85 18 17:00 85 18 113/56 (75) 96 18 16:57 95 50 3/14/18 16:45 85 18 106/53 (70) 95 12/19/17 16:45 85 18 16:30 84 18 16:30 84 18 104/53 (70) 95 18 16:15 89 18 110/56 (74) 98 18 16:15 89 12/19/17 16:00 60 12/19/17 16:00 91 12/19/17 16:00 99.2 91 18 114/56 (75) 98 12/19/17 15:45 100 18 15:45 100 18 110/55 (73) 98 12/19/17 15:30 83 18 103/55 (71) 98 12/19/17 15:30 83 12/19/17 15:15 96 18 105/52 (69) 98 12/19/17 15:15 96 12/19/17 15:00 89 19 107/55 (72) 97 12/19/17 15:00 89 12/19/17 14:45 94 12/19/17 14:30 88 12/19/17 14:30 88 23 131/61 (84) 96 12/19/17 14:15 102 12/19/17 14:15 102 25 116/56 (76) 97 12/19/17 14:07 95 60 12/19/17 14:00 92 12/19/17 14:00 92 17 145/67 (93) 95 12/19/17 13:55 94 60 12/19/17 13:45 158 19 144/58 (86) 95 12/19/17 13:30 81 22 166/68 (100) 94 12/19/17 13:15 140 17 151/64 (93) 93 12/19/17 13:00 147 18 154/69 (97) 92 12/19/17 13:00 147 12/19/17 12:45 161 12/19/17 12:45 161 20 175/108 (130) 93 12/20/17 12/20/17 12/21/17 15:00 23:00 07:00 Intake Total 360 ml Balance 360 ml IV Total 360 ml . Laboratory Tests Test 12/19/17 06:23 12/20/17 03:50 White Blood Count 18.3 TH/MM3 16.5 TH/MM3 Red Blood Count 3.56 MIL/MM3 3.32 MIL/MM3 Hemoglobin 10.6 GM/DL 9.9 GM/DL Hematocrit 31.8 % 29.5 % Mean Corpuscular Volume 89.4 FL 88.7 FL Mean Corpuscular Hemoglobin 29.7 PG 29.7 PG Mean Corpuscular Hemoglobin Concent 33.2 % 33.4 % Red Cell Distribution Width 13.3 % 13.5 % Platelet Count 239 TH/MM3 257 TH/MM3 Mean Platelet Volume 9.0 FL 9.1 FL Neutrophils (%) (Auto) 88.3 % 89.0 % Lymphocytes (%) (Auto) 5.5 % 5.2 % Monocytes (%) (Auto) 5.9 % 5.4 % Eosinophils (%) (Auto) 0.0 % 0.0 % Basophils (%) (Auto) 0.3 % 0.4 % Neutrophils # (Auto) 16.2 TH/MM3 14.7 TH/MM3 Lymphocytes # (Auto) 1.0 TH/MM3 0.9 TH/MM3 Monocytes # (Auto) 1.1 TH/MM3 0.9 TH/MM3 Eosinophils # (Auto) 0.0 TH/MM3 0.0 TH/MM3 Basophils # (Auto) 0.1 TH/MM3 0.1 TH/MM3 CBC Comment AUTO DIFF AUTO DIFF Differential Total Cells Counted 100 100 Neutrophils % (Manual) 52 % 63 % Band Neutrophils % 31 % 27 % Lymphocytes % 9 % 4 % Monocytes % 6 % 5 % Neutrophils # (Manual) 15.6 TH/MM3 15.0 TH/MM3 Myelocytes 2 % 1 % Differential Comment FINAL DIFF MANUAL FINAL DIFF MANUAL Toxic Granulation 1+ 2+ Platelet Estimate NORMAL NORMAL Platelet Morphology Comment NORMAL NORMAL Toxic Vacuolation PRESENT Laboratory Tests Test 12/18/17 22:43 12/19/17 04:54 12/19/17 13:06 12/20/17 03:50 Phosphorus Level 1.7 MG/DL 1.8 MG/DL Blood Urea Nitrogen 9 MG/DL 11 MG/DL Creatinine 0.49 MG/DL 0.44 MG/DL Random Glucose 139 MG/DL 109 MG/DL Calcium Level 8.1 MG/DL 8.1 MG/DL Magnesium Level 2.2 MG/DL 2.4 MG/DL Sodium Level 148 MEQ/L 153 MEQ/L Potassium Level 3.8 MEQ/L 4.4 MEQ/L Chloride Level 115 MEQ/L 116 MEQ/L Carbon Dioxide Level 24.3 MEQ/L 31.3 MEQ/L Anion Gap 9 MEQ/L 6 MEQ/L Estimat Glomerular Filtration Rate 136 ML/MIN 154 ML/MIN Total Creatine Kinase 161 U/L Total Protein 6.0 GM/DL Albumin 1.4 GM/DL Alkaline Phosphatase 151 U/L Aspartate Amino Transf (AST/SGOT) 34 U/L Alanine Aminotransferase (ALT/SGPT) 29 U/L Total Bilirubin 0.4 MG/DL Microbiology Date/Time Source Procedure Growth Status 12/19/17 06:23 Blood Peripheral Aerobic Blood Culture - Preliminary NO GROWTH IN 1 DAY Resulted 12/19/17 06:23 Blood Peripheral Anaerobic Blood Culture - Preliminary NO GROWTH IN 1 DAY Resulted 12/18/17 05:25 Blood Peripheral Aerobic Blood Culture - Preliminary NO GROWTH IN 2 DAYS Resulted 12/18/17 05:25 Anaerobic Blood Culture - Preliminary S. Aureus Mrsa Resulted 12/17/17 14:40 Nasal Washing Influenza Types A,B Antigen (ANTOINE) - Final NEGATIVE FOR FLU A AND B ANTIGEN.... Complete Imaging Chest X-Ray 12/17/17 0600 Signed Impressions: Service Date/Time: Sunday, December 17, 2017 03:12 - CONCLUSION: Unchanged bilateral infiltrates. Yomi Shipley Jr., MD Chest X-Ray 12/16/17 0000 Signed Impressions: Service Date/Time: Saturday, December 16, 2017 16:35 - CONCLUSION: 1. No significant pneumothorax identified on plain film post bronchoscopy. Endotracheal tube and basilar airspace disease not significantly changed. Malachi Hardin MD Chest X-Ray 12/16/17 0000 Signed Impressions: Service Date/Time: Saturday, December 16, 2017 15:22 - CONCLUSION: 1. Endotracheal tube in good position. Extensive pneumomediastinum. Dense consolidation in the lungs. Malachi Hardin MD CT Angiography 12/16/17 0000 Signed Impressions: Service Date/Time: Saturday, December 16, 2017 13:49 - CONCLUSION: 1. Negative for pulmonary emboli. 2. Dense consolidation in the lungs especially the lung bases with several cavitary lesions as above. Findings are most characteristic of pneumonia. Cannot exclude septic embolic disease. No significant effusion. Malachi Hardin MD Physical Exam GENERAL: Sedated, on the vent, NAD. SKIN: Warm and dry. No generalized rash, no ecchymoses and no evidence of embolic lesions. HEAD: Atraumatic. Normocephalic. No temporal wasting, or tenderness. EYES: [place] conjunctiva. No petechia or hemorrhage. Pupils equal, round and reactive to light. No scleral icterus. No injection or drainage. EARS, NOSE AND THROAT: Nose without bleeding or purulent nasal discharge. She is orally intubated. Mucous membranes pink and moist. NECK: Trachea midline. Supple and not tender, no meningeal signs CARDIOVASCULAR: Regular rate and rhythm. No murmurs, rubs or gallops heard RESPIRATORY: Coarse breath sounds bilaterally ABDOMEN: Soft, non-tender, nondistended. Bowel sounds present and normoactive. No guarding. No rebound. No organomegaly. EXTREMITIES: No clubbing, cyanosis, or edema. No joint effusion, has good ROM. No calf tenderness. Well perfused and warm. NEUROLOGICAL: Sedated PSYCHIATRIC: Unable to assess LINE: No evidence of infection Assessment & Plan Remarks IMPRESSION Sepsis present, high grade, on admission, has MRSA on blood cultures Bilateral pneumonia, some with cavitation - C/S with MRSA Very worrisome for endocarditis Respiratory failure RECOMMENDATION Follow cultures and adjust antibiotics Continue Cubicin until clearing of BC Continue Teflaro For JEANINE today Follow temps Monitor progress Discussed with Liliam Ritchie MD Dec 20, 2017 12:39
--- NOTE | 2017-12-20 13:43 | EKG ---
Date Performed: 12/19/2017 Time Performed: 12:49:27 PTAGE: 47 years EKG: Sinus rhythm WITH SINUS ARRHYTHMIA WITH SHORT ND INTERVAL BORDERLINE ECG NO PRIOR TRACING FOR COMPARISON DOCTOR: Marquita Carias Interpretating Date/Time 12/20/2017 13:43:13
--- NOTE | 2017-12-20 13:46 | EKG ---
Date Performed: 12/19/2017 Time Performed: 13:00:24 PTAGE: 47 years EKG: ATRIAL FIBRILLATION WITH RAPID VENTRICULAR RESPONSE NONSPECIFIC ST & T-WAVE ABNORMALITY ABN ORMAL RHYTHM ECG Compared to PREVIOUS TRACING the patient has developed atrial fibrillation with rapid v. response. T he nonspecific ST T wave changes are new. PREVIOUS TRACIN12/19/2017 12.49 DOCTOR: Marquita Carias Interpretating Date/Time 12/20/2017 13:44:14
--- NOTE | 2017-12-20 15:05 | HHI.PR ---
Subjective Remarks on the ventilator sedated JEANINE TODAY , VERBALLY NEGATIVE Objective Vital Signs Date Time Temp Pulse Resp B/P (MAP) Pulse Ox O2 Delivery O2 Flow Rate FiO2 12/20/17 14:14 94 50 12/20/17 13:30 84 12/20/17 13:00 84 12/20/17 12:45 99.9 85 16 133/51 (78) 94 12/20/17 12:35 92 60 12/20/17 12:30 85 16 144/66 (92) 93 12/20/17 12:30 85 12/20/17 12:15 84 16 146/66 (92) 93 12/20/17 12:00 50 12/20/17 12:00 83 12/20/17 12:00 100.6 83 16 149/67 (94) 93 12/20/17 11:45 83 16 160/72 (101) 92 12/20/17 11:30 88 12/20/17 11:30 88 16 190/81 (117) 92 12/20/17 11:30 97 50 12/20/17 11:15 81 16 163/72 (102) 92 12/20/17 11:00 83 12/20/17 11:00 83 16 165/73 (103) 92 12/20/17 10:45 84 16 162/73 (102) 91 12/20/17 10:30 84 12/20/17 10:30 84 16 160/70 (100) 91 12/20/17 10:15 90 16 166/74 (104) 90 12/20/17 10:00 91 12/20/17 10:00 91 16 179/75 (109) 89 12/20/17 09:30 87 12/20/17 09:00 78 16 175/75 (108) 89 12/20/17 09:00 78 12/20/17 08:45 74 24 129/63 (85) 91 12/20/17 08:30 71 12/20/17 08:30 71 22 137/55 (82) 92 12/20/17 08:15 75 22 137/64 (88) 93 12/20/17 08:00 76 12/20/17 08:00 100.3 76 21 133/60 (84) 92 12/20/17 08:00 50 12/20/17 07:45 71 20 133/60 (84) 92 18 07:30 74 19 127/62 (83) 96 18 07:30 74 18 07:28 98 50 18 07:15 75 19 129/57 (81) 92 18 07:00 65 20 127/62 (83) 92 18 07:00 65 12/20/17 06:00 65 12/20/17 04:11 96 50 12/20/17 04:00 73 12/20/17 04:00 98.4 73 20 110/57 (74) 96 12/20/17 04:00 50 12/20/17 02:00 80 12/20/17 01:20 95 50 12/20/17 00:00 79 12/20/17 00:00 50 12/20/17 00:00 99.5 79 18 120/58 (78) 96 12/19/17 22:00 74 18 21:02 92 50 12/19/17 20:00 75 12/19/17 20:00 50 12/19/17 20:00 99.8 75 18 115/56 (75) 95 18 18:00 77 18 104/61 (75) 97 18 18:00 77 18 17:45 83 18 111/53 (72) 97 18 17:45 83 12/19/18 17:30 79 18 17:30 79 18 98/52 (67) 97 18 17:15 82 18 111/55 (73) 96 18 17:15 82 14/18 17:00 85 14/18 17:00 85 18 113/56 (75) 96 18 16:57 95 50 18 16:45 85 18 106/53 (70) 95 18 16:45 85 12/19/18 16:30 84 12/19/18 16:30 84 18 104/53 (70) 95 14/18 16:15 89 18 110/56 (74) 98 14/18 16:15 89 18 16:00 60 18 16:00 91 18 16:00 99.2 91 18 114/56 (75) 98 12/19/17 15:45 100 12/19/17 15:45 100 18 110/55 (73) 98 12/19/17 15:30 83 18 103/55 (71) 98 12/19/17 15:30 83 12/19/17 15:15 96 18 105/52 (69) 98 12/19/17 15:15 96 I/O 12/19/17 12/19/17 12/19/17 12/20/17 12/20/17 12/20/17 07:00 15:00 23:00 07:00 15:00 23:00 Intake Total 3472 ml 1710 ml 830 ml 1013.2 ml 510 ml Output Total 950 ml 4450 ml 850 ml Balance 2522 ml 1710 ml -3620 ml 163.2 ml 510 ml IV Total 2962 ml 1710 ml 710 ml 1013.2 ml 510 ml Tube Feeding 510 ml 0 ml Other 120 ml Output Urine Total 950 ml 4450 ml 850 ml # Bowel Movements 1 2 0 Result Diagram: 12/20/17 0350 12/20/17 0350 Procedures BiPAP Objective Remarks GENERAL: SKIN: Warm and dry. HEAD: Atraumatic. Normocephalic. EYES: Pupils equal and round. No scleral icterus. No injection or drainage. ENT: No nasal bleeding or discharge. Mucous membranes pink and moist. NECK: Trachea midline. No JVD. CARDIOVASCULAR: Regular rate and rhythm. RESPIRATORY: No accessory muscle use. Clear to auscultation. Breath sounds equal bilaterally. GASTROINTESTINAL: Abdomen soft, non-tender, nondistended. Hepatic and splenic margins not palpable. MUSCULOSKELETAL: Extremities without clubbing, cyanosis, or edema. No obvious deformities. NEUROLOGICAL: Awake and alert. No obvious cranial nerve deficits. Motor grossly within normal limits. Five out of 5 muscle strength in the arms and legs. Normal speech. PSYCHIATRIC: Appropriate mood and affect; insight and judgment normal. Assessment and Plan Assessment and Plan imp: respiratory failure pna, bilateral infiltrates same on xray pneumomediastinum, stable attempt at weaning no successful plan vent support antibx pulm toilet wean as tolerated Ileana Tejeda MD Dec 20, 2017 15:05
[2017-12-20] MEDS: ROCURONIUM INJ 50 MG/5 ML VIAL IV PRN ×2 (17:07→18:43)
[2017-12-20] MEDS: PROPOFOL 1000 MG/100 ML INJ 100 ML IV PRN ×2 (17:07→20:46)
--- NOTE | 2017-12-20 19:30 | PD.CARD.PN ---
Subjective Subjective Remarks Intubated, sedated, stays in SR on sotalol Objective Medications Current Medications Medications (Trade) Dose Ordered Sig/Mraily Route Start Time Stop Time Status Last Admin (NS Flush) 2 ml UNSCH PRN IV FLUSH 12/15/17 22:30 (NS Flush) 2 ml BID IV FLUSH 12/16/17 09:00 12/20/17 08:34 (Robitussin Dm 200-20 Mg/10 ml Liq) 10 ml Q4H PRN PO 12/15/17 22:30 Future Hold (Toradol Inj) 15 mg Q6HR PRN IV PUSH 12/16/17 04:15 12/21/17 04:14 12/16/17 07:12 (Heparin Inj) 5,000 units Q8H SQ 12/16/17 12:00 12/20/17 11:39 (Morphine Inj) 1 mg Q4H PRN IM 12/16/17 09:15 Future Hold 12/16/17 10:11 (Mucinex Er) 600 mg BID PO 12/16/17 09:15 Future Hold 12/16/17 10:51 Propofol 100 ml @ 2.1 mls/hr TITRATE PRN IV 12/16/17 14:45 12/20/17 17:07 Fentanyl Citrate 250 ml @ 5 mls/hr TITRATE PRN IV 12/16/17 16:30 12/20/17 16:55 (Pepcid Inj) 20 mg Q12H IV PUSH 12/16/17 17:00 12/20/17 16:43 (Tylenol) 650 mg Q6H PRN PO 12/16/17 16:45 12/20/17 16:42 Miscellaneous Information 1 Q361D XX 12/16/17 16:45 (Chlorhexidine 2% Cloth) 3 pack Taper DAILY@04 TOP 12/17/17 04:00 12/13/18 03:59 12/19/17 20:55 (Chlorhexidine 2% Cloth) 3 pack UNSCH PRN TOP 12/16/17 16:45 (Florinda-Colace) 1 tab BID PO 12/16/17 21:00 12/19/17 20:52 (Milk Of Magnesia Liq) 30 ml Q12H PRN PO 12/16/17 16:45 (Senokot) 17.2 mg Q12H PRN PO 12/16/17 16:45 (Dulcolax Supp) 10 mg DAILY PRN RECTAL 12/16/17 16:45 (Lactulose Liq) 30 ml DAILY PRN PO 12/16/17 16:45 (Peridex 0.12% Liq) 15 ml BID@08,20 MT 12/16/17 20:00 12/20/17 08:35 Midazolam HCl 100 ml @ 2 mls/hr TITRATE PRN IV 12/16/17 17:30 12/20/17 16:56 Potassium Chloride 100 ml @ 50 mls/hr Q2H PRN IV 12/17/17 07:45 Potassium Chloride 100 ml @ 50 mls/hr Q2H PRN IV 12/17/17 07:45 (K-Lyte Cl Eff) 50 meq UNSCH PRN PO 12/17/17 07:45 Potassium Chloride 100 ml @ 25 mls/hr UNSCH PRN IV 12/17/17 07:45 Potassium Chloride 100 ml @ 50 mls/hr Q2H PRN IV 12/17/17 07:45 Magnesium Sulfate 4 gm/Sodium Chloride 100 ml @ 50 mls/hr UNSCH PRN IV 12/17/17 07:45 (Mag-Ox) 800 mg UNSCH PRN PO 12/17/17 07:45 Magnesium Sulfate 2 gm/Sodium Chloride 100 ml @ 50 mls/hr UNSCH PRN IV 12/17/17 07:45 (K-Phos) 2,000 mg Q4H PRN PO 12/17/17 07:45 12/17/17 23:49 Sodium Phosphate 30 mmol/Sodium Chloride 250 ml @ 42 mls/hr UNSCH PRN IV 12/17/17 07:45 12/18/17 08:40 (K-Phos) 2,000 mg UNSCH PRN PO/TUBE 12/17/17 07:45 Potassium Phosphate 30 mmol/ Sodium Chloride 260 ml @ 42 mls/hr UNSCH PRN IV 12/17/17 07:45 12/19/17 07:57 (Ativan Inj) 1 mg Q4H PRN IV 12/18/17 16:15 Ceftaroline Fosamil 600 mg/ Sodium Chloride 100 ml @ 100 mls/hr Q12H IV 12/19/17 10:00 12/20/17 08:33 Daptomycin 500 mg/ Sodium Chloride 100 ml @ 200 mls/hr Q24H IV 12/19/17 12:00 12/20/17 11:39 (Duoneb Neb) 1 ampule Q2HR NEB PRN NEB 12/19/17 10:30 12/20/17 09:17 (Betapace) 80 mg Q12HR PEG 12/19/17 21:00 12/20/17 08:34 (Duoneb Neb) 1 ampule Q4HR NEB INH 12/20/17 12:00 12/20/17 14:13 (SoluMEDROL INJ) 60 mg Q8H IV PUSH 12/20/17 10:00 12/20/17 16:42 Sodium Chloride 1,000 ml @ 42 mls/hr [id number] IV 12/20/17 09:45 12/20/17 11:43 (Zemuron Inj) 50 mg Q3H PRN IV 12/20/17 15:45 12/20/17 18:43 Vital Signs / I&O Vital Signs Date Time Temp Pulse Resp B/P (MAP) Pulse Ox O2 Delivery O2 Flow Rate FiO2 12/20/17 18:00 101.8 88 27 130/60 (83) 91 12/20/17 18:00 88 12/20/17 17:30 83 16 140/63 (88) 90 12/20/17 17:30 83 12/20/17 17:16 84 12/20/17 17:16 84 16 140/65 (90) 90 12/20/17 17:00 86 25 133/60 (84) 94 12/20/17 17:00 86 12/20/17 16:30 86 12/20/17 16:30 86 23 131/60 (83) 93 12/20/17 16:00 87 12/20/17 16:00 102.0 87 21 126/57 (80) 94 12/20/17 16:00 50 12/20/17 15:30 86 12/20/17 15:30 86 22 123/58 (79) 94 12/20/17 15:00 87 16 124/60 (81) 95 12/20/17 15:00 87 12/20/17 14:30 96 12/20/17 14:30 96 16 119/56 (77) 95 12/20/17 14:14 94 50 12/20/17 14:00 83 12/20/17 14:00 83 16 114/54 (74) 95 12/20/17 13:30 84 12/20/17 13:30 84 16 119/57 (77) 94 12/20/17 13:00 84 12/20/17 13:00 84 16 124/60 (81) 94 12/20/17 12:45 99.9 85 16 133/51 (78) 94 12/20/17 12:35 92 60 12/20/17 12:30 85 16 144/66 (92) 93 12/20/17 12:30 85 12/20/17 12:15 84 16 146/66 (92) 93 12/20/17 12:00 50 12/20/17 12:00 83 12/20/17 12:00 100.6 83 16 149/67 (94) 93 12/20/17 11:45 83 16 160/72 (101) 92 12/20/17 11:30 88 12/20/17 11:30 88 16 190/81 (117) 92 12/20/17 11:30 97 50 12/20/17 11:15 81 16 163/72 (102) 92 12/20/17 11:00 83 12/20/17 11:00 83 16 165/73 (103) 92 12/20/17 10:45 84 16 162/73 (102) 91 12/20/17 10:30 84 12/20/17 10:30 84 16 160/70 (100) 91 12/20/17 10:15 90 16 166/74 (104) 90 12/20/17 10:00 91 12/20/17 10:00 91 16 179/75 (109) 89 12/20/17 09:30 87 12/20/17 09:00 78 16 175/75 (108) 89 12/20/17 09:00 78 12/20/17 08:45 74 24 129/63 (85) 91 12/20/17 08:30 71 12/20/17 08:30 71 22 137/55 (82) 92 12/20/17 08:15 75 22 137/64 (88) 93 12/20/17 08:00 76 12/20/17 08:00 100.3 76 21 133/60 (84) 92 12/20/17 08:00 50 12/20/17 07:45 71 20 133/60 (84) 92 12/20/17 07:30 74 19 127/62 (83) 96 12/20/17 07:30 74 12/20/17 07:28 98 50 12/20/17 07:15 75 19 129/57 (81) 92 12/20/17 07:00 65 20 127/62 (83) 92 12/20/17 07:00 65 12/20/17 06:00 65 12/20/17 04:11 96 50 12/20/17 04:00 73 12/20/17 04:00 98.4 73 20 110/57 (74) 96 12/20/17 04:00 50 12/20/17 02:00 80 12/20/17 01:20 95 50 12/20/17 00:00 79 12/20/17 00:00 50 12/20/17 00:00 99.5 79 18 120/58 (78) 96 12/19/17 22:00 74 12/19/17 21:02 92 50 12/19/17 20:00 75 12/19/17 20:00 50 12/19/17 20:00 99.8 75 18 115/56 (75) 95 I/O 12/19/17 12/19/17 12/19/17 12/20/17 12/20/17 12/20/17 06:59 14:59 22:59 06:59 14:59 22:59 Intake Total 3472 ml 1710 ml 830 ml 1013.2 ml 1710 ml 470 ml Output Total 950 ml 4450 ml 850 ml 1200 ml Balance 2522 ml 1710 ml -3620 ml 163.2 ml 1710 ml -730 ml IV Total 2962 ml 1710 ml 710 ml 1013.2 ml 1710 ml 350 ml Tube Feeding 510 ml 0 ml Other 120 ml 120 ml Output Urine Total 950 ml 4450 ml 850 ml 1200 ml # Bowel Movements 1 2 0 1 Physical Exam GENERAL: Intubated, sedated SKIN: Warm and dry. HEAD: Normocephalic. EYES: No scleral icterus. No injection or drainage. NECK: Supple, trachea midline. No JVD or lymphadenopathy. CARDIOVASCULAR: Regular rate and rhythm without murmurs, gallops, or rubs. RESPIRATORY: Breath sounds equal bilaterally. No accessory muscle use. GASTROINTESTINAL: Abdomen soft, non-tender, nondistended. MUSCULOSKELETAL: No cyanosis, or edema. Laboratory Laboratory Tests Test 12/20/17 03:50 12/20/17 12:15 12/20/17 14:16 White Blood Count 16.5 TH/MM3 Red Blood Count 3.32 MIL/MM3 Hemoglobin 9.9 GM/DL Hematocrit 29.5 % Mean Corpuscular Volume 88.7 FL Mean Corpuscular Hemoglobin 29.7 PG Mean Corpuscular Hemoglobin Concent 33.4 % Red Cell Distribution Width 13.5 % Platelet Count 257 TH/MM3 Mean Platelet Volume 9.1 FL Neutrophils (%) (Auto) 89.0 % Lymphocytes (%) (Auto) 5.2 % Monocytes (%) (Auto) 5.4 % Eosinophils (%) (Auto) 0.0 % Basophils (%) (Auto) 0.4 % Neutrophils # (Auto) 14.7 TH/MM3 Lymphocytes # (Auto) 0.9 TH/MM3 Monocytes # (Auto) 0.9 TH/MM3 Eosinophils # (Auto) 0.0 TH/MM3 Basophils # (Auto) 0.1 TH/MM3 CBC Comment AUTO DIFF Differential Total Cells Counted 100 Neutrophils % (Manual) 63 % Band Neutrophils % 27 % Lymphocytes % 4 % Monocytes % 5 % Neutrophils # (Manual) 15.0 TH/MM3 Myelocytes 1 % Differential Comment FINAL DIFF MANUAL Toxic Granulation 2+ Toxic Vacuolation PRESENT Platelet Estimate NORMAL Platelet Morphology Comment NORMAL Blood Urea Nitrogen 11 MG/DL Creatinine 0.44 MG/DL Random Glucose 109 MG/DL Total Protein 6.0 GM/DL Albumin 1.4 GM/DL Calcium Level 8.1 MG/DL Magnesium Level 2.4 MG/DL Alkaline Phosphatase 151 U/L Aspartate Amino Transf (AST/SGOT) 34 U/L Alanine Aminotransferase (ALT/SGPT) 29 U/L Total Bilirubin 0.4 MG/DL Sodium Level 153 MEQ/L Potassium Level 4.4 MEQ/L Chloride Level 116 MEQ/L Carbon Dioxide Level 31.3 MEQ/L Anion Gap 6 MEQ/L Estimat Glomerular Filtration Rate 154 ML/MIN Blood Gas Puncture Site RT RADIAL rr Blood Gas Patient Temperature 98.6 98.6 Blood Gas HCO3 33 mmol/L 33 mmol/L Blood Gas Base Excess 5.5 mmol/L 6.8 mmol/L Blood Gas Oxygen Saturation 90 % 92 % Arterial Blood pH 7.24 7.33 Arterial Blood Partial Pressure CO2 78 mmHg 63 mmHg Arterial Blood Partial Pressure O2 74 mmHg 74 mmHg Arterial Blood Oxygen Content 16.7 Vol % 13.6 Vol % Arterial Blood Carboxyhemoglobin 0.8 % 1.1 % Arterial Blood Methemoglobin 1.3 % 1.1 % Blood Gas Hemoglobin 13.1 G/DL 10.4 G/DL Oxygen Delivery Device VENTILATOR VENTILATOR Blood Gas Ventilator Setting 16/430/+8/50% 16/500/+8/50% Blood Gas Inspired Oxygen 50 % 50 % Imaging Last 24 hours Impressions Chest X-Ray 12/20/17 0600 Signed Impressions: Service Date/Time: , December 20, 2017 02:14 - CONCLUSION: Unchanged bilateral pulmonary infiltrates. Yomi Shipley Jr., MD Assessment and Plan Problem List: (1) Sepsis due to methicillin resistant Staphylococcus aureus (MRSA) ICD Codes: A41.02 - Sepsis due to Methicillin resistant Staphylococcus aureus (2) ARDS (adult respiratory distress syndrome) ICD Codes: J80 - Acute respiratory distress syndrome (3) Bilateral pneumonia ICD Codes: J18.9 - Pneumonia, unspecified organism Status: Acute (4) Acute hypoxemic respiratory failure ICD Codes: J96.01 - Acute respiratory failure with hypoxia (5) Paroxysmal atrial fibrillation ICD Codes: I48.0 - Paroxysmal atrial fibrillation Assessment and Plan JEANINE with no evidence of endocarditis. Stays in SR on sotalol, no recurrent AF. Continue tx for sepsis. Continue vent support, wean vent as tolerated. Valorie Bray MD Dec 20, 2017 19:30
--- NOTE | 2017-12-20 20:46 | CF ---
cc: Valorie Bray MD INDICATION: Sepsis, bacteremia, evaluation for endocarditis. PROCEDURE PERFORMED: Transesophageal echocardiogram. PROCEDURE: Transesophageal probe was placed without difficulties. Tomographic images were obtained. Left ventricular function was preserved with estimated ejection fraction of 55% with no segmental wall motion abnormalities. The aortic valve was structurally normal. There was no evidence of aortic stenosis or regurgitation. There was no evidence of aortic valve vegetations. The mitral valve was structurally normal. There was no evidence of mitral stenosis. There was evidence of trace mitral valve regurgitation. There was no evidence of mitral valve vegetations. There was no evidence of tricuspid valve vegetations. There was evidence of trace tricuspid regurgitation. The pulmonary valve was visualized. There was no evidence of pulmonary valve vegetations. There was no evidence of pulmonary stenosis or regurgitation. Left atrial appendage was visualized and there was no evidence of left atrial thrombus. Descending thoracic aorta had no significant plaque. DIAGNOSIS: 1. No evidence of valvular vegetations. 2. Preserved left ventricular systolic function. 3. Trace mitral regurgitation. 4. Trace tricuspid regurgitation. IMPRESSION: No evidence of endocarditis. Valorie Bray MD OQ/rt , 07:25 PM , 08:45 PM MTDD
[2017-12-21] VITALS (20 sets, daily range): BP systolic 85–126; BP diastolic 46–58; PULSE 58–98; RESP 16–27; TEMP 98.1–101.1; O2SAT 92–99
[2017-12-21] MEDS: RESP: ALBUTEROL 2.5 MG/IPRATROPIUM 0.5 MG NEB (SCH) INH ×7 (00:26→23:58)
[2017-12-21] MEDS: methylPREDNISolone SOD SUCC 125 MG/2 ML VIAL IV PUSH SCH ×3 (01:29→19:19)
[2017-12-21] MEDS: fentaNYL DRIP 250 ML IV PRN ×2 (01:29→20:37)
[2017-12-21] MEDS: MIDAZOLAM 100 MG/100 ML INJ 100 ML IV PRN ×2 (01:30→21:12)
[2017-12-21] MEDS ORDERED: ATROPINE SULFATE 1 MG/10 ML SYRINGE IV SCH (02:32)
[2017-12-21] MEDS ORDERED: EPINEPHrine HCL (1:1000) 1 MG/ML VIAL IV SCH (02:32)
[2017-12-21] MEDS ORDERED: TERBUTALINE INJ 1 MG/ML AMP SQ PRN (03:00)
[2017-12-21] MEDS: ROCURONIUM INJ 50 MG/5 ML VIAL IV PRN (03:12)
[2017-12-21] MEDS: HEPARIN SODIUM - SQ 10,000 UNITS/ML VIAL SQ SCH ×3 (03:16→20:18)
[2017-12-21] MEDS: DOPamine 800 MG/500 ML INJ 500 ML IV PRN (03:20)
[2017-12-21] MEDS: CHLORHEXIDINE GLUCONATE 2 % 1 PACK (2 CLOTHS) TOP SCH (04:00)
[2017-12-21] MEDS: FAMOTIDINE 20 MG/2 ML VIAL IV PUSH SCH ×2 (04:58→19:19)
[2017-12-21] MEDS ORDERED: ATROPINE SULFATE 1 MG/10 ML SYRINGE IV ONE (05:00)
[2017-12-21] MEDS ORDERED: EPINEPHrine HCL (1:10,000) 1 MG/10 ML SYRINGE IV ONE (05:00)
--- NOTE | 2017-12-21 05:01 | RADRPT ---
EXAM DATE/TIME: 12/21/2017 03:42 [facility] COMPARISON: CHEST SINGLE AP, December 20, 2017, 2:14. INDICATIONS : Evaluate for respiratory disease. MEDICAL HISTORY : Hypertension. SURGICAL HISTORY : Cholecystectomy. ENCOUNTER: Subsequent ACUITY: 1 week PAIN SCORE: Non-responsive. LOCATION: chest FINDINGS: A single view of the chest demonstrates worsening bilateral airspace disease. Silhouetting of the car diac shadow makes it difficult to determine heart size. Endotracheal and nasogastric tubes are unchan ged in position with the former identified at the clavicular heads. Multilevel degenerative spurring of the dorsal spine. Osseous structures are otherwise intact. CONCLUSION: Worsening bilateral parenchymal airspace disease. Jaylen Kendall MD on December 21, 2017 at 4:59 Board Certified Radiologist. This report was verified electronically.
[2017-12-21 05:27] LABS: AUTOMATED NEUTROPHIL # 20.9 TH/MM3 (1.8-7.7); BASOPHIL # 0.1 TH/MM3 (0-0.2); BASOPHIL % 0.2 % (0.0-2.0); HEMATOCRIT 34.6 % (35.0-46.0); HEMOGLOBIN 11.4 GM/DL (11.6-15.3); LYMPHOCYTE # 0.7 TH/MM3 (1.0-4.8); MEAN CELL VOLUME 90.6 FL (80.0-100.0); MEAN CORPUSCULAR HEMOGLOBIN 29.8 PG (27.0-34.0); MEAN CORPUSCULAR HGB CONC 32.9 % (32.0-36.0); MONO % 2.3 % (0.0-8.0); MONOCYTE # 0.5 TH/MM3 (0-0.9); NEUT % 94.5 % (16.0-70.0); PLATELET COUNT 372 TH/MM3 (150-450); RED BLOOD COUNT 3.82 MIL/MM3 (4.00-5.30); RED CELL DISTRIBUTION WIDTH 13.9 % (11.6-17.2); WHITE BLOOD COUNT 22.2 TH/MM3 (4.0-11.0)
[2017-12-21 05:54] LABS: ALBUMIN 1.3 GM/DL (3.4-5.0); ALKALINE PHOSPHATASE 163 U/L (45-117); ALT (GPT) 39 U/L (10-53); AST (GOT) 97 U/L (15-37); BICARBONATE 27.7 MEQ/L (21.0-32.0); BLOOD UREA NITROGEN 25 MG/DL (7-18); CALCIUM 8.4 MG/DL (8.5-10.1); CHLORIDE 113 MEQ/L (98-107); CREATININE 0.67 MG/DL (0.50-1.00); GLOMERULAR FILTRATION RATE 95 ML/MIN (>89); GLUCOSE,RANDOM 232 MG/DL (74-106); MAGNESIUM 2.5 MG/DL (1.5-2.5); SODIUM (NA) 149 MEQ/L (136-145); TOTAL BILIRUBIN ADULT 0.4 MG/DL (0.2-1.0); TOTAL PROTEIN 6.3 GM/DL (6.4-8.2)
[2017-12-21] MEDS: PROPOFOL 1000 MG/100 ML INJ 100 ML IV PRN ×5 (06:06→23:31)
--- NOTE | 2017-12-21 07:27 | HHI.PR ---
Subjective Remarks on the ventilator sedated brief period of asystole during night Objective Vital Signs Date Time Temp Pulse Resp B/P (MAP) Pulse Ox O2 Delivery O2 Flow Rate FiO2 12/21/17 06:06 86 110/68 12/21/17 06:00 87 12/21/17 04:00 50 12/21/17 04:00 97 12/21/17 04:00 98.9 97 24 126/58 (80) 92 12/21/17 03:36 94 100 12/21/17 03:20 100 107/56 12/21/17 02:32 52 12/21/17 02:00 87 12/21/17 00:26 94 50 12/21/17 00:00 50 12/21/17 00:00 58 12/21/17 00:00 99.2 58 17 100/51 (67) 93 12/20/17 22:20 94 50 12/20/17 22:00 66 12/20/17 20:00 80 12/20/17 20:00 100.2 80 21 115/58 (77) 92 12/20/17 20:00 50 12/20/17 19:30 92 50 12/20/17 18:00 101.8 88 27 130/60 (83) 91 12/20/17 18:00 88 12/20/17 17:30 83 16 140/63 (88) 90 12/20/17 17:30 83 12/20/17 17:16 84 12/20/17 17:16 84 16 140/65 (90) 90 12/20/17 17:00 86 25 133/60 (84) 94 12/20/17 17:00 86 12/20/17 16:30 86 12/20/17 16:30 86 23 131/60 (83) 93 12/20/17 16:00 87 12/20/17 16:00 102.0 87 21 126/57 (80) 94 12/20/17 16:00 50 12/20/17 15:30 86 12/20/17 15:30 86 22 123/58 (79) 94 12/20/17 15:00 87 16 124/60 (81) 95 12/20/17 15:00 87 12/20/17 14:30 96 12/20/17 14:30 96 16 119/56 (77) 95 12/20/17 14:14 94 50 12/20/17 14:00 83 12/20/17 14:00 83 16 114/54 (74) 95 12/20/17 13:30 84 12/20/17 13:30 84 16 119/57 (77) 94 12/20/17 13:00 84 12/20/17 13:00 84 16 124/60 (81) 94 12/20/17 12:45 99.9 85 16 133/51 (78) 94 12/20/17 12:35 92 60 12/20/17 12:30 85 16 144/66 (92) 93 12/20/17 12:30 85 12/20/17 12:15 84 16 146/66 (92) 93 12/20/17 12:00 50 12/20/17 12:00 83 12/20/17 12:00 100.6 83 16 149/67 (94) 93 12/20/17 11:45 83 16 160/72 (101) 92 12/20/17 11:30 88 12/20/17 11:30 88 16 190/81 (117) 92 12/20/17 11:30 97 50 12/20/17 11:15 81 16 163/72 (102) 92 12/20/17 11:00 83 12/20/17 11:00 83 16 165/73 (103) 92 12/20/17 10:45 84 16 162/73 (102) 91 12/20/17 10:30 84 12/20/17 10:30 84 16 160/70 (100) 91 12/20/17 10:15 90 16 166/74 (104) 90 12/20/17 10:00 91 12/20/17 10:00 91 16 179/75 (109) 89 12/20/17 09:30 87 12/20/17 09:00 78 16 175/75 (108) 89 12/20/17 09:00 78 12/20/17 08:45 74 24 129/63 (85) 91 12/20/17 08:30 71 12/20/17 08:30 71 22 137/55 (82) 92 12/20/17 08:15 75 22 137/64 (88) 93 12/20/17 08:00 76 12/20/17 08:00 100.3 76 21 133/60 (84) 92 12/20/17 08:00 50 12/20/17 07:45 71 20 133/60 (84) 92 12/20/17 07:30 74 19 127/62 (83) 96 12/20/17 07:30 74 12/20/17 07:28 98 50 I/O 12/20/17 12/20/17 12/20/17 12/21/17 12/21/17 12/21/17 07:00 15:00 23:00 07:00 15:00 23:00 Intake Total 1013.2 ml 1710 ml 670 ml 1214.5 ml Output Total 850 ml 1200 ml 850 ml Balance 163.2 ml 1710 ml -530 ml 364.5 ml IV Total 1013.2 ml 1710 ml 550 ml 830.5 ml Tube Feeding 264 ml Other 120 ml 120 ml Output Urine Total 850 ml 1200 ml 850 ml # Bowel Movements 0 1 1 Result Diagram: 12/21/17 0340 12/21/17 0325 Procedures BiPAP Objective Remarks GENERAL: sedated on vent support SKIN: Warm and dry. HEAD: Atraumatic. Normocephalic. EYES: Pupils equal and round. No scleral icterus. No injection or drainage. ENT: No nasal bleeding or discharge. Mucous membranes pink and moist. NECK: Trachea midline. No JVD. CARDIOVASCULAR: Regular rate and rhythm. RESPIRATORY: No accessory muscle use. Clear to auscultation. Breath sounds equal bilaterally. GASTROINTESTINAL: Abdomen soft, non-tender, nondistended. Hepatic and splenic margins not palpable. MUSCULOSKELETAL: Extremities without clubbing, cyanosis, or edema. No obvious deformities. NEUROLOGICAL: Awake and alert. No obvious cranial nerve deficits. Motor grossly within normal limits. Five out of 5 muscle strength in the arms and legs. Normal speech. PSYCHIATRIC: Appropriate mood and affect; insight and judgment normal. Assessment and Plan Assessment and Plan imp: respiratory failure pna, bilateral infiltrates worse on AM CXRAY MRSA POSITIVE BLOOD CULTURES ARDS plan vent support antibx pulm toilet wean as tolerated Ileana Tejeda MD Dec 21, 2017 07:27
[2017-12-21 07:45] LABS: BANDS 23 % (0-6); LYMPHOCYTES 1 % (9-44); MONOCYTES 2 % (0-8); MYELOCYTES 4 % (0-0); NEUTROPHIL # MANUAL DIFF 21.5 TH/MM3 (1.8-7.7); POLYS (SEG NEUTROPHILS) 70 % (16-70)
[2017-12-21] MEDS: SODIUM CHLORIDE 0.9% FLUSH 10 ML FLUSH IV FLUSH SCH ×2 (08:24→20:18)
[2017-12-21] MEDS: CEFTAROLINE INJ 600 MG in SODIUM CHLORIDE 0.9% INJ 100 ML IV SCH ×2 (08:25→21:10)
[2017-12-21] MEDS: SOTALOL HCL 80 MG TAB PEG SCH ×2 (08:26→20:18)
[2017-12-21] MEDS: DOCUSATE SODIUM 50 MG/SENNA 8.6 MG TAB PO SCH ×2 (08:26→20:18)
[2017-12-21] MEDS: CHLORHEXIDINE 0.12% (ORAL KIT) 15 ML CUP MT SCH ×2 (08:28→20:00)
[2017-12-21] MEDS: CISATRACURIUM INJ 100 MG in SODIUM CHLOR 0.9% 250 ML INJ 250 ML IV PRN ×2 (09:08→21:30)
--- NOTE | 2017-12-21 09:14 | PD.PROCEDR ---
Central Line Procedure REASON FOR PROCEDURE Central venous access PROCEDURE PERFORMED Central line placement: Left IJ CVL CONSENT Informed consent for procedure was obtained from son. The risks and benefits of the procedure were discussed to include but limited to bleeding, clot formation, infection, and even . ANESTHESIA Local injection of 1% Lidocaine DESCRIPTION OF THE PROCEDURE The patient was placed in supine, mild Trendelenburg position. The area was exposed and cleansed with ChloraPrep, times two. Large sterile drape was used to cover the patient, with the site exposed, under sterile conditions including cap, face mask, sterile gown, and sterile gloves. On single attempt, the introducer needle was inserted with negative pressure in syringe and venous flash was obtained. The guide wire was then advanced without any restriction and the needle was removed. The dilator was used without any complications. Using Seldinger technique the antibiotic coated triple lumen catheter was advanced over the guide wire to a depth of 20 centimeters. The guide wire was removed. All ports were aspirated with dark venous blood return and flushed easily with sterile saline. All ports were capped. Antibiotic disc was placed around central line at puncture site. The central line was secured to the skin with two interrupted 2.0 silk sutures. The area was bandaged with sterile see- through central line bandage. RADIOLOGICAL DATA Ultrasound guidance was used to locate left internal jugular vein. Doppler/ color flow was used to confirm venous flow. COMPLICATIONS: No apparent complications ESTIMATED BLOOD LOSS: Less than 1 cc. Kashmir Lee MD Dec 21, 2017 09:14
[2017-12-21] MEDS ORDERED: GLUCAGON 1 MG/ML VIAL OTHER PRN (09:15)
[2017-12-21] MEDS ORDERED: DEXTROSE 50% IN WATER 50 ML VIAL(D50) IV PUSH PRN (09:15)
--- NOTE | 2017-12-21 09:41 | HHI.CCPN ---
Subjective Remarks/Hospital Course This is a 47-year-old female with a history of anxiety disorder, that presented to [place] on with complaints of chest pain and dyspnea that has been lasting for the past 4 days. The patient was transferred to [facility]. Imaging and laboratory studies were initially performed which showed a chest x-ray with bilateral patchy airspace consolidation consistent with bronchial pneumonia, and her lactic acid level was noted to be 3.1. The patient's oxygen requirements continue to increase the patient became tachypneic with a respiratory rate in the 40s and tachycardic, heart rate in the 120s. Pulmonology was consulted, CT was performed which revealed no pulmonary emboli , will several cavitary lesions, dense consolidation at both lung bases, air bronchograms and extensive pneumomediastinum extending into the lower neck and upper chest .ICU was requested to see patient. Upon observation the patient was severely dyspneic, with significant accessory muscle movement, violently coughing hemoptysis. Decision made to intubate patient for airway protection. 12/17 Patient is sedated with Diprivan and versed infusion. afebrile. s/p bronch yesterday by Dr. Klein. 12/18 Patient remains sedated with Versed 10mg/hr and Fentanyl 250 mics. Tmax 102.1 yesterday. + MRSA in bronch and GPC/MRSA from [facility] 12/15 from [place] 12/19: Patient developed respiratory distress and SVT this am with vent dyssynchrony with air trapping and elevated peak pressure. FiO2 increased to 100%, started on Nimbex infusion. Intermittently tachycardic, occasional bradycardia also. EKG shows sinus rhythm. Patient is very critical now. Will consult cardiology for JEANINE, and also regarding SVT. Chest x-ray shows worsening bilateral infiltrates concerning for ARDS 12/20: Remains intubated heavily sedated and neuromuscularly paralyzed to maintain ventilator synchrony and control peak pressures. Chest x-ray shows persistent bilateral infiltrates. JEANINE planned for today. All cultures so far positive for MRSA. Tachy Arrhythmia is better controlled after starting sotalol Subjective 12/21: CODE BLUE overnight when patient became bradycardic. Received epinephrine with chest compressions with return of spontaneous relief within 5 minutes according to RN. Currently on peripheral dopamine at 10 mcg/kg/min. FiO2 currently at 100%. Chest x-ray revealed worsening diffuse bilateral pulmonary infiltrates Objective Vital Signs Date Time Temp Pulse Resp B/P (MAP) Pulse Ox O2 Delivery O2 Flow Rate FiO2 12/21/17 07:52 96 100 12/21/17 06:06 86 110/68 12/21/17 04:00 98.9 24 Intake and Output 12/21/17 12/21/17 12/21/17 07:59 15:59 23:59 Intake Total 1214.5 ml Output Total 850 ml Balance 364.5 ml Result Diagram: 12/21/17 0340 12/21/17 0325 Other Results Microbiology Date/Time Source Procedure Growth Status 12/19/17 06:23 Blood Peripheral Aerobic Blood Culture - Preliminary NO GROWTH IN 1 DAY Resulted 12/19/17 06:23 Blood Peripheral Anaerobic Blood Culture - Preliminary NO GROWTH IN 1 DAY Resulted 12/20/17 18:35 Sputum Endotracheal Gram Stain Pending Received 12/20/17 18:35 Sputum Endotracheal Sputum Culture Pending Received 12/20/17 18:35 Urine Catheterized Urine Urine Culture Pending Received Imaging Last Impressions Chest X-Ray 12/21/17 0600 Signed Impressions: Service Date/Time: Thursday, December 21, 2017 03:42 - CONCLUSION: Worsening bilateral parenchymal airspace disease. Jaylen Kendall MD CT Angiography 12/16/17 0000 Signed Impressions: Service Date/Time: Saturday, December 16, 2017 13:49 - CONCLUSION: 1. Negative for pulmonary emboli. 2. Dense consolidation in the lungs especially the lung bases with several cavitary lesions as above. Findings are most characteristic of pneumonia. Cannot exclude septic embolic disease. No significant effusion. Malachi Hardin MD Objective Remarks GENERAL: 47-year-old female currently resting in bed orotracheally intubated SKIN: Warm and dry. HEAD: Normocephalic. EYES: No scleral icterus. No injection or drainage. ENT: Orotracheally intubated NECK: Supple, trachea midline. Left IJ CVL is clean dry and intact CARDIOVASCULAR: Currently normal sinus rhythm. RRR. S1, S2 no strip without murmur RESPIRATORY: Breath sounds equal bilaterally. Bilateral coarse rhonchi and wheezes. GASTROINTESTINAL: Abdomen soft, non-tender, nondistended. MUSCULOSKELETAL: No significant peripheral edema Neuro: No gag. Pupils are reactive about 2 mm. No withdrawal to pain. Status post cisatracurium Urinary Catheter: Yes Assessment to: Continue [place] insert reason: Prolonged Immobilization Vascular Central Line Catheter: Yes Assessment to: Continue Date of Insertion: Dec 20, 2017 Line: Central Venous Catheter Side: Left Location: Internal, Jugular A/P Assessment and Plan Neuro/Psych: Anxiety disorder THC use Currently on propofol at 50 mg/kg/min, fentanyl drip at 250 mcg an hour and midazolam drip at 10 mg an hour for sedation/analgesia while intubated Neuromuscular paralysis with cisatracurium currently at 1 mcg/min infusion s for ventilator dyssynchrony and developing ARDS. We will restart cisatracurium currently at 1 mcg/min. Patient at risk for CIM however extremely hypoxic with severe ARDS. UDS: + benzos, cannabinoids Acetaminophen 650 mg liquid by tube every 6 hours as needed fever Respiratory: Acute hypoxemic respiratory failure ARDS Small right Pneumothorax Pneumomediastinum Hemoptysis by history Pulmonary cavitary lesions ACV 16/500/8/100 Ventilator bundle Albuterol/ipratropium aerosols every 4 hours with albuterol aerosols every 2 hours as needed dyspnea Budesonide 0.5/2 1 inhalation twice daily Methylprednisolone succinate 60 mg IV every [address] Tejeda pulmonology following No spontaneous breathing trials or sedation medication due to neuromuscular paralysis 12/16 -CT Angio - extensive pneumomediastinum extending into neck and upper chest. Dense consolidation at both lung bases, air bronchograms , 2 cavitary lesions 12/16-bronchoscopy performed by Dr. Klein, no active sites noted for bleeding, moderate purulent mucus bilaterally noted 2 BAL samples sent CTS is following for Pneumomediastinum-per Dr. Guadarrama no intervention at this time. A.m. ABG pending. Chest x-ray in a.m. revealed worsening bilateral infiltrates. Cardiovascular: Paroxysmal atrial fibrillation SVT Probable infective endocarditis Status post CODE BLUE Currently normal saline at 42 cc an hour Currently on dopamine at 10 mg/kg/min to maintain mean arterial pressure greater than equal to 65 Started on sotalol 80 mg twice daily by Dr. Bray 12/19 Monitor HR and BP keep MAP>65mmHg Transesophageal echocardiogram 12/20 revealed no signs of endocarditis. Preserved LV function. Trace MR/TR Echo 12/17 showed EF 60-65% EKG/limited echocardiogram and troponin all pending FEN/Renal: Hypernatremia Hypophosphatemia Monitor renal function Electrolytes replacement per protocol. Check magnesium and phosphorus postcode blue GI: Elevated AST and alkaline phosphatase Hypoalbuminemia On tube feeds- Glucerna 1.5 @ 55ml/hr. with free water 100 cc every 6 hours Nutrition recommends Jevity 1.5 at 55 cc Famotidine 20 mg twice daily GI prophylaxis Docusate sodium/senna 1 tablet twice daily for bowel regimen ID: MRSA Bacteremia Severe sepsis ABX per ID: Continue daptomycin 500 mg IV every 24 hours and ceftaroline 600 mg IV every 12 hours day #3 started 12/19 Persistent high-grade bacteremia with MRSA concerning for endocarditis JEANINE revealed no signs of endocarditis 12/20 12/15 BC from [place]- MRSA 12/16 Bronch BAL- MRSA BC 12/16, 12/17 12/18: MRSA Blood culture 12/19 no growth 12/20 sputum/urine pending influenza, pneumococcal and Legionella antigens- Negative Heme: Leukocytosis Normocytic anemia Monitor CBC. Follow trends No indication for transfusion of blood product at this time Endocrine: Hyperglycemia likely steroid induced Sliding scale insulin Accu-Cheks every 6 hours to maintain euglycemia/medium regimen Novulin R initiated today Check TSH Prophylaxis: GI Prophylaxis Famotidine IV DVT Prophylaxis -- SCDs -heparin SQ Lines: Left IJ CVL day #1 placed 12/21 Critical Care: The total critical care time was 35 minutes. Time to perform other separately billable procedures was not included in the critical care time. Kashmir Lee MD Dec 21, 2017 09:41
--- NOTE | 2017-12-21 09:42 | HHI.IDPN ---
Subjective Subjective Remarks Patient is a 47-year-old female, who initially presented to the [facility] ED complaining of 4 day history of chest pain and shortness of breath. In have any other history. She was apparently coughing and was bringing up some brownish phlegm. There was no mention of any fever or chills. No nausea or vomiting. No urinary complaints. Chest x-ray showed bilateral patchy basilar infiltrates. CTA did not show any pulmonary embolism, showed bilateral infiltrates with some cavitary lesions noted. She was transferred to the main hospital, and she apparently had some blood in the sputum. She ended up getting intubated. [facility] did bronchoscopy on her. Patient currently sedated postintubation. Her blood pressure is okay and she is not hypotensive. She is tachycardic. Infectious disease consultation has been requested to evaluate the patient with pneumonia Notes reviewed D/W RN Coded last night On dopamine now On the vent, FiO2 at 1.0 CXR worse infiltrates On vent, sedated and low dose paralytic All BC with MRSA 12/15-12/18 No new (+) BC Sputum C/S pending WBC rising JEANINE no vegetation Antibiotics Cubicin [facility] Current Medications Medications (Trade) Dose Ordered Sig/Marily Route Start Time Stop Time Status Last Admin (NS Flush) 2 ml UNSCH PRN IV FLUSH 12/15/17 22:30 (NS Flush) 2 ml BID IV FLUSH 12/16/17 09:00 12/21/17 08:24 (Robitussin Dm 200-20 Mg/10 ml Liq) 10 ml Q4H PRN PO 12/15/17 22:30 Future Hold (Heparin Inj) 5,000 units Q8H SQ 12/16/17 12:00 12/21/17 03:16 (Morphine Inj) 1 mg Q4H PRN IM 12/16/17 09:15 Future Hold 12/16/17 10:11 (Mucinex Er) 600 mg BID PO 12/16/17 09:15 Future Hold 12/16/17 10:51 Propofol 100 ml @ 2.1 mls/hr TITRATE PRN IV 12/16/17 14:45 12/21/17 06:06 Fentanyl Citrate 250 ml @ 5 mls/hr TITRATE PRN IV 12/16/17 16:30 12/21/17 01:29 (Pepcid Inj) 20 mg Q12H IV PUSH 12/16/17 17:00 12/21/17 04:58 (Tylenol) 650 mg Q6H PRN PO 12/16/17 16:45 12/20/17 16:42 Miscellaneous Information 1 Q361D XX 12/16/17 16:45 (Chlorhexidine 2% Cloth) 3 pack Taper DAILY@04 TOP 12/17/17 04:00 12/13/18 03:59 12/21/17 04:00 (Chlorhexidine 2% Cloth) 3 pack UNSCH PRN TOP 12/16/17 16:45 (Florinda-Colace) 1 tab BID PO 12/16/17 21:00 12/21/17 08:26 (Milk Of Magnesia Liq) 30 ml Q12H PRN PO 12/16/17 16:45 (Senokot) 17.2 mg Q12H PRN PO 12/16/17 16:45 (Dulcolax Supp) 10 mg DAILY PRN RECTAL 12/16/17 16:45 (Lactulose Liq) 30 ml DAILY PRN PO 12/16/17 16:45 (Peridex 0.12% Liq) 15 ml BID@08,20 MT 12/16/17 20:00 12/21/17 08:28 Midazolam HCl 100 ml @ 2 mls/hr TITRATE PRN IV 12/16/17 17:30 12/21/17 01:30 Potassium Chloride 100 ml @ 50 mls/hr Q2H PRN IV 12/17/17 07:45 Potassium Chloride 100 ml @ 50 mls/hr Q2H PRN IV 12/17/17 07:45 (K-Lyte Cl Eff) 50 meq UNSCH PRN PO 12/17/17 07:45 Potassium Chloride 100 ml @ 25 mls/hr UNSCH PRN IV 12/17/17 07:45 Potassium Chloride 100 ml @ 50 mls/hr Q2H PRN IV 12/17/17 07:45 Magnesium Sulfate 4 gm/Sodium Chloride 100 ml @ 50 mls/hr UNSCH PRN IV 12/17/17 07:45 (Mag-Ox) 800 mg UNSCH PRN PO 12/17/17 07:45 Magnesium Sulfate 2 gm/Sodium Chloride 100 ml @ 50 mls/hr UNSCH PRN IV 12/17/17 07:45 (K-Phos) 2,000 mg Q4H PRN PO 12/17/17 07:45 12/17/17 23:49 Sodium Phosphate 30 mmol/Sodium Chloride 250 ml @ 42 mls/hr UNSCH PRN IV 12/17/17 07:45 12/18/17 08:40 (K-Phos) 2,000 mg UNSCH PRN PO/TUBE 12/17/17 07:45 Potassium Phosphate 30 mmol/ Sodium Chloride 260 ml @ 42 mls/hr UNSCH PRN IV 12/17/17 07:45 12/19/17 07:57 (Ativan Inj) 1 mg Q4H PRN IV 12/18/17 16:15 Ceftaroline Fosamil 600 mg/ Sodium Chloride 100 ml @ 100 mls/hr Q12H IV 12/19/17 10:00 12/21/17 08:25 Daptomycin 500 mg/ Sodium Chloride 100 ml @ 200 mls/hr Q24H IV 12/19/17 12:00 12/20/17 11:39 (Betapace) 80 mg Q12HR PEG 12/19/17 21:00 12/21/17 08:26 (Duoneb Neb) 1 ampule Q4HR NEB INH 12/20/17 12:00 12/21/17 07:55 (SoluMEDROL INJ) 60 mg Q8H IV PUSH 12/20/17 10:00 12/21/17 08:26 Sodium Chloride 1,000 ml @ 42 mls/hr [id number] IV 12/20/17 09:45 12/20/17 11:43 Dopamine HCl/ Dextrose 500 ml @ 0 mls/hr TITRATE PRN IV 12/21/17 03:00 12/21/17 03:20 (Brethine Inj) 1 mg UNSCH PRN SQ 12/21/17 03:00 Cisatracurium Besylate 100 mg/ Sodium Chloride 260 ml @ 11.62 mls/ hr TITRATE PRN IV 12/21/17 08:30 12/21/17 09:08 (Albuterol Neb) 2.5 mg Q2HR NEB PRN NEB 12/21/17 08:30 (Pulmicort Respule Neb) 0.5 mg Q12HR NEB NEB 12/21/17 20:00 (NS Flush) DAILY IV FLUSH 12/22/17 09:00 UNV (NS Flush) UNSCH PRN IV FLUSH 12/21/17 09:15 UNV Albumin Human 500 ml @ 250 mls/hr ONCE ONCE IV 12/21/17 09:15 12/21/17 11:14 UNV (Bactroban Nasal 2% Oint) 1 applic Taper BID EACH NARE 12/21/17 21:00 12/17/18 20:59 UNV (Lacrilube Opht Oint) 1 applic Q12HR EACH EYE 12/21/17 09:15 UNV (D50w (Vial) Inj) 50 ml UNSCH PRN IV PUSH 12/21/17 09:15 UNV (Glucagon Inj) 1 mg UNSCH PRN OTHER 12/21/17 09:15 UNV (NovoLIN R SUPPLEMENTAL SCALE) 1 Q6HR SQ 12/21/17 12:00 UNV Lines LIJ TLC - 12/21 Past Medical History Anxiety Past Surgical History Cholecystectomy Hysterectomy Allergies: Coded Allergies: No Known Allergies (Unverified , 12/15/17) Objective . Vital Signs Date Time Temp Pulse Resp B/P (MAP) Pulse Ox O2 Delivery O2 Flow Rate FiO2 12/21/17 07:52 96 100 12/21/17 06:06 86 110/68 12/21/17 06:00 87 12/21/17 04:00 50 12/21/17 04:00 97 12/21/17 04:00 98.9 97 24 126/58 (80) 92 12/21/17 03:36 94 100 12/21/17 03:20 100 107/56 12/21/17 02:32 52 12/21/17 02:00 87 12/21/17 00:26 94 50 12/21/17 00:00 50 12/21/17 00:00 58 12/21/17 00:00 99.2 58 17 100/51 (67) 93 12/20/17 22:20 94 50 12/20/17 22:00 66 12/20/17 20:00 80 12/20/17 20:00 100.2 80 21 115/58 (77) 92 12/20/17 20:00 50 12/20/17 19:30 92 50 12/20/17 18:00 101.8 88 27 130/60 (83) 91 12/20/17 18:00 88 12/20/17 17:30 83 16 140/63 (88) 90 12/20/17 17:30 83 12/20/17 17:16 84 12/20/17 17:16 84 16 140/65 (90) 90 12/20/17 17:00 86 25 133/60 (84) 94 12/20/17 17:00 86 12/20/17 16:30 86 12/20/17 16:30 86 23 131/60 (83) 93 12/20/17 16:00 87 12/20/17 16:00 102.0 87 21 126/57 (80) 94 12/20/17 16:00 50 12/20/17 15:30 86 12/20/17 15:30 86 22 123/58 (79) 94 12/20/17 15:00 87 16 124/60 (81) 95 12/20/17 15:00 87 12/20/17 14:30 96 12/20/17 14:30 96 16 119/56 (77) 95 12/20/17 14:14 94 50 12/20/17 14:00 83 12/20/17 14:00 83 16 114/54 (74) 95 12/20/17 13:30 84 12/20/17 13:30 84 16 119/57 (77) 94 12/20/17 13:00 84 12/20/17 13:00 84 16 124/60 (81) 94 12/20/17 12:45 99.9 85 16 133/51 (78) 94 12/20/17 12:35 92 60 12/20/17 12:30 85 16 144/66 (92) 93 12/20/17 12:30 85 12/20/17 12:15 84 16 146/66 (92) 93 12/20/17 12:00 50 12/20/17 12:00 83 12/20/17 12:00 100.6 83 16 149/67 (94) 93 12/20/17 11:45 83 16 160/72 (101) 92 18 11:30 88 12/20/17 11:30 88 16 190/81 (117) 92 12/20/17 11:30 97 50 12/20/17 11:15 81 16 163/72 (102) 92 12/20/17 11:00 83 12/20/17 11:00 83 16 165/73 (103) 92 12/20/17 10:45 84 16 162/73 (102) 91 12/20/17 10:30 84 12/20/17 10:30 84 16 160/70 (100) 91 12/20/17 10:15 90 16 166/74 (104) 90 12/20/17 10:00 91 12/20/17 10:00 91 16 179/75 (109) 89 . Laboratory Tests Test 12/20/17 03:50 12/21/17 03:40 White Blood Count 16.5 TH/MM3 22.2 TH/MM3 Red Blood Count 3.32 MIL/MM3 3.82 MIL/MM3 Hemoglobin 9.9 GM/DL 11.4 GM/DL Hematocrit 29.5 % 34.6 % Mean Corpuscular Volume 88.7 FL 90.6 FL Mean Corpuscular Hemoglobin 29.7 PG 29.8 PG Mean Corpuscular Hemoglobin Concent 33.4 % 32.9 % Red Cell Distribution Width 13.5 % 13.9 % Platelet Count 257 TH/MM3 372 TH/MM3 Mean Platelet Volume 9.1 FL 9.0 FL Neutrophils (%) (Auto) 89.0 % 94.5 % Lymphocytes (%) (Auto) 5.2 % 3.0 % Monocytes (%) (Auto) 5.4 % 2.3 % Eosinophils (%) (Auto) 0.0 % 0.0 % Basophils (%) (Auto) 0.4 % 0.2 % Neutrophils # (Auto) 14.7 TH/MM3 20.9 TH/MM3 Lymphocytes # (Auto) 0.9 TH/MM3 0.7 TH/MM3 Monocytes # (Auto) 0.9 TH/MM3 0.5 TH/MM3 Eosinophils # (Auto) 0.0 TH/MM3 0.0 TH/MM3 Basophils # (Auto) 0.1 TH/MM3 0.1 TH/MM3 CBC Comment AUTO DIFF AUTO DIFF Differential Total Cells Counted 100 100 Neutrophils % (Manual) 63 % 70 % Band Neutrophils % 27 % 23 % Lymphocytes % 4 % 1 % Monocytes % 5 % 2 % Neutrophils # (Manual) 15.0 TH/MM3 21.5 TH/MM3 Myelocytes 1 % 4 % Differential Comment FINAL DIFF MANUAL FINAL DIFF MANUAL Toxic Granulation 2+ Toxic Vacuolation PRESENT Platelet Estimate NORMAL NORMAL Platelet Morphology Comment NORMAL NORMAL Red Cell Morphology Comment NORMAL Laboratory Tests Test 12/19/17 13:06 12/20/17 03:50 12/21/17 03:25 Total Creatine Kinase 161 U/L Blood Urea Nitrogen 11 MG/DL 25 MG/DL Creatinine 0.44 MG/DL 0.67 MG/DL Random Glucose 109 MG/DL 232 MG/DL Total Protein 6.0 GM/DL 6.3 GM/DL Albumin 1.4 GM/DL 1.3 GM/DL Calcium Level 8.1 MG/DL 8.4 MG/DL Magnesium Level 2.4 MG/DL 2.5 MG/DL Alkaline Phosphatase 151 U/L 163 U/L Aspartate Amino Transf (AST/SGOT) 34 U/L 97 U/L Alanine Aminotransferase (ALT/SGPT) 29 U/L 39 U/L Total Bilirubin 0.4 MG/DL 0.4 MG/DL Sodium Level 153 MEQ/L 149 MEQ/L Potassium Level 4.4 MEQ/L 4.3 MEQ/L Chloride Level 116 MEQ/L 113 MEQ/L Carbon Dioxide Level 31.3 MEQ/L 27.7 MEQ/L Anion Gap 6 MEQ/L 8 MEQ/L Estimat Glomerular Filtration Rate 154 ML/MIN 95 ML/MIN Microbiology Date/Time Source Procedure Growth Status 12/19/17 06:23 Blood Peripheral Aerobic Blood Culture - Preliminary NO GROWTH IN 1 DAY Resulted 12/19/17 06:23 Blood Peripheral Anaerobic Blood Culture - Preliminary NO GROWTH IN 1 DAY Resulted 12/20/17 18:35 Sputum Endotracheal Gram Stain Pending Received 12/20/17 18:35 Sputum Endotracheal Sputum Culture Pending Received 12/20/17 18:35 Urine Catheterized Urine Urine Culture Pending Received Imaging Chest X-Ray 12/17/17 0600 Signed Impressions: Service Date/Time: Sunday, December 17, 2017 03:12 - CONCLUSION: Unchanged bilateral infiltrates. Yomi Shipley Jr., MD Chest X-Ray 12/16/17 0000 Signed Impressions: Service Date/Time: Saturday, December 16, 2017 16:35 - CONCLUSION: 1. No significant pneumothorax identified on plain film post bronchoscopy. Endotracheal tube and basilar airspace disease not significantly changed. Malachi Hardin MD Chest X-Ray 12/16/17 0000 Signed Impressions: Service Date/Time: Saturday, December 16, 2017 15:22 - CONCLUSION: 1. Endotracheal tube in good position. Extensive pneumomediastinum. Dense consolidation in the lungs. Malachi Hardin MD CT Angiography 12/16/17 0000 Signed Impressions: Service Date/Time: Saturday, December 16, 2017 13:49 - CONCLUSION: 1. Negative for pulmonary emboli. 2. Dense consolidation in the lungs especially the lung bases with several cavitary lesions as above. Findings are most characteristic of pneumonia. Cannot exclude septic embolic disease. No significant effusion. Malachi Hardin MD Physical Exam GENERAL: Sedated, on the vent, tachypneic, diaphoretic SKIN: Warm and dry. No generalized rash, no ecchymoses and no evidence of embolic lesions. HEAD: Atraumatic. Normocephalic. No temporal wasting, or tenderness. EYES: [place] conjunctiva. No petechia or hemorrhage. Pupils equal, round and reactive to light. No scleral icterus. No injection or drainage. EARS, NOSE AND THROAT: Nose without bleeding or purulent nasal discharge. She is orally intubated. NECK: Trachea midline. Supple and not tender, no meningeal signs CARDIOVASCULAR: Tachycardic RESPIRATORY: Scattered rales, and wheezing ABDOMEN: Soft, non-tender, nondistended. Bowel sounds present and normoactive. No guarding. No rebound. No organomegaly. EXTREMITIES: No clubbing, cyanosis, or edema. Well perfused and warm. NEUROLOGICAL: Sedated PSYCHIATRIC: Unable to assess LINE: No evidence of infection Assessment & Plan Remarks IMPRESSION Sepsis present, high grade, on admission, has MRSA on blood cultures - now with shock, S/P arrest Bilateral pneumonia, some with cavitation - C/S with MRSA - CXR worse Very worrisome for endocarditis - clinically , but JEANINE negative Respiratory failure. worsening infiltrates, PNA, ?ARDS RECOMMENDATION Follow new cultures and adjust antibiotics Continue Cubicin until clearing of BC Continue Teflaro Add Meropenem for GNR coverage in the ling Bronch being planned by CCM Follow temps Monitor progress Discussed with RN Dr Landeros covering this weekend Liliam Su MD Dec 21, 2017 09:42
[2017-12-21] MEDS ORDERED: PHARMACY INFORMATION XX PRN (09:45)
[2017-12-21] MEDS ORDERED: ASP: Other exception documentation: ( ) PRN (09:45)
[2017-12-21] MEDS ORDERED: ALBUMIN 5% INJ 500 ML IV ONE (10:00)
--- NOTE | 2017-12-21 10:05 | RADRPT ---
EXAM DATE/TIME: 12/21/2017 09:19 [facility] COMPARISON: CHEST SINGLE AP, December 21, 2017, 3:42. INDICATIONS : Central line placement. MEDICAL HISTORY : Hypertension. SURGICAL HISTORY : Cholecystectomy. Hysterectomy. ENCOUNTER: Subsequent ACUITY: 4 - 6 days PAIN SCORE: Non-responsive. LOCATION: Bilateral chest FINDINGS: Left internal jugular central line has its tip in the superior vena cava. There is no pneumothorax. D iffuse pulmonary infiltrates are noted and are slightly improved compared to previous examination. Th e endotracheal tube and nasogastric tube are stable. Degenerative changes and scoliosis are noted thr oughout the thoracic spine. CONCLUSION: 1. No pneumothorax status post placement of left internal jugular central line which has its tip in t he superior vena cava. 2. Slight improvement of the diffuse pulmonary infiltrates bilaterally. Rito Shirley MD on December 21, 2017 at 10:02 Board Certified Radiologist. This report was verified electronically.
--- NOTE | 2017-12-21 11:19 | PD.PROCEDR ---
Procedure Note Procedure DATE: 12/21/2017 Bronchoscopy/diagnostic and therapeutic INDICATION: Worsening hypoxia CONSENT Informed consent for procedure was obtained from son. DESCRIPTION OF THE PROCEDURE The patient was placed in supine position. ACV ventilation 16/500/10/100. Patient is on propofol infusion at 50 mg/kg/min, fentanyl drip at 250 mcg an hour, midazolam drip at 10 mg an hour and cisatracurium drip at 1 mcg/min. I entered 8.0 ET tube with flexible bronchoscopy. The magdalena was sharp with plaquing appreciated. All mucosa was extremely friable. Airway was hyperdynamic. Evaluation of the right upper/middle and lower lobes revealed thick mucous plugging throughout. I irrigated 30 cc of sterile saline to the right middle lobe and aspirated into a Lukens traps which was sent for evaluation laboratory microscopy. The scope was withdrawn to the left lingula/ lower lobe. During this the patient became bradycardic and the procedure was stopped. Patient saturations remained above 80% all times. No active bleeding was identified. ESTIMATED BLOOD LOSS: Minimal COMPLICATIONS: No apparent complications. STAT chest x-ray pending at time of dictation Kashmir Lee MD Dec 21, 2017 11:19
[2017-12-21] MEDS: DAPTOmycin INJ 500 MG in SODIUM CHLORIDE 0.9% INJ 100 ML IV SCH (11:38)
[2017-12-21] MEDS: EPOPROSTENOL NEB SOLUTION 50 NG/KG/MIN 100 ML NEB SCH ×4 (11:39→21:10)
[2017-12-21] MEDS: INSULIN NovoLIN REGULAR SUPPLEMENTAL SCALE SQ SCH ×2 (12:00→18:00)
[2017-12-21] MEDS: MEROPENEM INJ 1,000 MG in SODIUM CHLORIDE 0.9% INJ 100 ML IV SCH ×2 (12:14→20:17)
[2017-12-21] MEDS: ARTIFICIAL TEARS OPTH OINT 3.5 APPLIC/3.5 GM TUBO EACH EYE SCH ×2 (12:23→20:18)
[2017-12-21] MEDS: ACETAMINOPHEN 650 MG/20.3 ML UDC NG PRN (12:23)
[2017-12-21] MEDS: SODIUM CHLOR 0.45% 1000 ML INJ 1,000 ML IV SCH (12:24)
--- NOTE | 2017-12-21 14:30 | EKG ---
Date Performed: 12/20/2017 Time Performed: 06:57:11 PTAGE: 47 years EKG: Sinus rhythm WITH MARKED SINUS ARRHYTHMIA WITH SHORT MI INTERVAL BORDERLINE ECG PREVIOUS TRACING : 12/19/2017 13.00 Rate has slowed since prior tracing. DOCTOR: Gm Magana Interpretating Date/Time 12/21/2017 14:29:26
--- NOTE | 2017-12-21 14:38 | RADRPT ---
EXAM DATE/TIME: 12/21/2017 11:40 [facility] COMPARISON: CHEST SINGLE AP, December 21, 2017, 9:19. INDICATIONS : Post bronchoscopy MEDICAL HISTORY : pneumonia, sepsis SURGICAL HISTORY : Cholecystectomy. Hysterectomy. ENCOUNTER: Subsequent ACUITY: 4 - 6 days PAIN SCORE: Non-responsive. LOCATION: Bilateral chest FINDINGS: Diffuse patchy opacities are noted bilaterally consistent with probable extensive pneumonia. Clinical correlation is recommended. The endotracheal tube is noted in good position 3 cm above the magdalena. A left internal jugular central line has its tip in the superior vena cava. The nasogastric tube has i ts tip below the diaphragm. The heart is stable. Degenerative changes and scoliosis of the thoracic s pine are noted. CONCLUSION: 1. Extensive pulmonary and Hernandez with probable pneumonia. Clinical correlation is recommended. 2. Stable cardiomegaly. 3. Multiple tubes and lines are stable. Rito Shirley MD on December 21, 2017 at 14:34 Board Certified Radiologist. This report was verified electronically.
--- NOTE | 2017-12-21 17:34 | PD.CARD.PN ---
Subjective Subjective Remarks Intubated, sedated, stays in SR on sotalol, episodes of bradycardia Objective Medications Current Medications Medications (Trade) Dose Ordered Sig/Marily Route Start Time Stop Time Status Last Admin (NS Flush) 2 ml UNSCH PRN IV FLUSH 12/15/17 22:30 (NS Flush) 2 ml BID IV FLUSH 12/16/17 09:00 12/21/17 08:24 (Robitussin Dm 200-20 Mg/10 ml Liq) 10 ml Q4H PRN PO 12/15/17 22:30 Future Hold (Heparin Inj) 5,000 units Q8H SQ 12/16/17 12:00 12/21/17 11:38 (Morphine Inj) 1 mg Q4H PRN IM 12/16/17 09:15 Future Hold 12/16/17 10:11 (Mucinex Er) 600 mg BID PO 12/16/17 09:15 Future Hold 12/16/17 10:51 Propofol 100 ml @ 2.1 mls/hr TITRATE PRN IV 12/16/17 14:45 12/21/17 14:22 Fentanyl Citrate 250 ml @ 5 mls/hr TITRATE PRN IV 12/16/17 16:30 12/21/17 01:29 (Pepcid Inj) 20 mg Q12H IV PUSH 12/16/17 17:00 12/21/17 04:58 Miscellaneous Information 1 Q361D XX 12/16/17 16:45 (Chlorhexidine 2% Cloth) 3 pack Taper DAILY@04 TOP 12/17/17 04:00 12/13/18 03:59 12/21/17 04:00 (Chlorhexidine 2% Cloth) 3 pack UNSCH PRN TOP 12/16/17 16:45 (Florinda-Colace) 1 tab BID PO 12/16/17 21:00 12/21/17 08:26 (Milk Of Magnesia Liq) 30 ml Q12H PRN PO 12/16/17 16:45 (Senokot) 17.2 mg Q12H PRN PO 12/16/17 16:45 (Dulcolax Supp) 10 mg DAILY PRN RECTAL 12/16/17 16:45 (Lactulose Liq) 30 ml DAILY PRN PO 12/16/17 16:45 (Peridex 0.12% Liq) 15 ml BID@08,20 MT 12/16/17 20:00 12/21/17 08:28 Midazolam HCl 100 ml @ 2 mls/hr TITRATE PRN IV 12/16/17 17:30 12/21/17 01:30 Potassium Chloride 100 ml @ 50 mls/hr Q2H PRN IV 12/17/17 07:45 Potassium Chloride 100 ml @ 50 mls/hr Q2H PRN IV 12/17/17 07:45 (K-Lyte Cl Eff) 50 meq UNSCH PRN PO 12/17/17 07:45 Potassium Chloride 100 ml @ 25 mls/hr UNSCH PRN IV 12/17/17 07:45 Potassium Chloride 100 ml @ 50 mls/hr Q2H PRN IV 12/17/17 07:45 Magnesium Sulfate 4 gm/Sodium Chloride 100 ml @ 50 mls/hr UNSCH PRN IV 12/17/17 07:45 (Mag-Ox) 800 mg UNSCH PRN PO 12/17/17 07:45 Magnesium Sulfate 2 gm/Sodium Chloride 100 ml @ 50 mls/hr UNSCH PRN IV 12/17/17 07:45 (K-Phos) 2,000 mg Q4H PRN PO 12/17/17 07:45 12/17/17 23:49 Sodium Phosphate 30 mmol/Sodium Chloride 250 ml @ 42 mls/hr UNSCH PRN IV 12/17/17 07:45 12/18/17 08:40 (K-Phos) 2,000 mg UNSCH PRN PO/TUBE 12/17/17 07:45 Potassium Phosphate 30 mmol/ Sodium Chloride 260 ml @ 42 mls/hr UNSCH PRN IV 12/17/17 07:45 12/19/17 07:57 (Ativan Inj) 1 mg Q4H PRN IV 12/18/17 16:15 Ceftaroline Fosamil 600 mg/ Sodium Chloride 100 ml @ 100 mls/hr Q12H IV 12/19/17 10:00 12/21/17 08:25 Daptomycin 500 mg/ Sodium Chloride 100 ml @ 200 mls/hr Q24H IV 12/19/17 12:00 12/21/17 11:38 (Betapace) 80 mg Q12HR PEG 12/19/17 21:00 12/21/17 08:26 (Duoneb Neb) 1 ampule Q4HR NEB INH 12/20/17 12:00 12/21/17 15:40 (SoluMEDROL INJ) 60 mg Q8H IV PUSH 12/20/17 10:00 12/21/17 08:26 Sodium Chloride 1,000 ml @ 42 mls/hr [id number] IV 12/20/17 09:45 12/21/17 12:24 Dopamine HCl/ Dextrose 500 ml @ 0 mls/hr TITRATE PRN IV 12/21/17 03:00 12/21/17 03:20 (Brethine Inj) 1 mg UNSCH PRN SQ 12/21/17 03:00 Cisatracurium Besylate 100 mg/ Sodium Chloride 260 ml @ 11.62 mls/ hr TITRATE PRN IV 12/21/17 08:30 12/21/17 09:08 (Albuterol Neb) 2.5 mg Q2HR NEB PRN NEB 12/21/17 08:30 (Pulmicort Respule Neb) 0.5 mg Q12HR NEB NEB 12/21/17 20:00 (NS Flush) DAILY IV FLUSH 12/22/17 09:00 (NS Flush) UNSCH PRN IV FLUSH 12/21/17 09:15 (Bactroban Nasal 2% Oint) 1 applic Taper BID EACH NARE 12/21/17 21:00 12/17/18 20:59 (Lacrilube Opht Oint) 1 applic Q12HR EACH EYE 12/21/17 10:00 12/21/17 12:23 (D50w (Vial) Inj) 50 ml UNSCH PRN IV PUSH 12/21/17 09:15 (Glucagon Inj) 1 mg UNSCH PRN OTHER 12/21/17 09:15 (NovoLIN R SUPPLEMENTAL SCALE) 1 Q6HR SQ 12/21/17 12:00 (ASP Crit: Other exception documentation) 1 UNSCH X1 PRN .XX 12/21/17 09:45 12/22/17 09:44 ([facility] Information) 1 UNSCH X1 PRN XX 12/21/17 09:45 12/22/17 09:44 Meropenem 1000 mg/ Sodium Chloride 100 ml @ 200 mls/hr Q8H IV 12/21/17 11:00 3/16/18 12:14 (Tylenol 650 Mg/ 20 ml Liq) 650 mg Q6H PRN NG 12/21/17 09:30 12/21/17 12:23 Epoprostenol Sodium 75 ml/ Sodium Chloride 100 ml @ 5 mls/hr Q8H NEB 12/21/17 10:00 12/21/17 11:39 Vital Signs / I&O Vital Signs Date Time Temp Pulse Resp B/P (MAP) Pulse Ox O2 Delivery O2 Flow Rate FiO2 12/21/17 15:38 97 100 12/21/17 15:35 16 12/21/17 14:00 77 12/21/17 12:04 96 100 12/21/17 12:00 101.1 98 16 110/57 (74) 96 12/21/17 12:00 98 12/21/17 12:00 98 110/57 (74) 12/21/17 12:00 100 12/21/17 10:00 80 12/21/17 08:00 86 12/21/17 08:00 100 12/21/17 08:00 100.1 83 27 108/57 (74) 96 12/21/17 07:52 96 100 12/21/17 06:06 86 110/68 12/21/17 06:00 87 12/21/17 04:00 50 12/21/17 04:00 97 12/21/17 04:00 98.9 97 24 126/58 (80) 92 12/21/17 03:36 94 100 12/21/17 03:20 100 107/56 12/21/17 02:32 52 12/21/17 02:00 87 12/21/17 00:26 94 50 12/21/17 00:00 50 12/21/17 00:00 58 12/21/17 00:00 99.2 58 17 100/51 (67) 93 12/20/17 22:20 94 50 12/20/17 22:00 66 12/20/17 20:00 80 12/20/17 20:00 100.2 80 21 115/58 (77) 92 12/20/17 20:00 50 12/20/17 19:30 92 50 12/20/17 18:00 101.8 88 27 130/60 (83) 91 12/20/17 18:00 88 3/15/18 17:30 83 16 140/63 (88) 90 12/20/17 17:30 83 I/O 12/20/17 12/20/17 12/20/17 12/21/17 12/21/17 12/21/17 07:00 15:00 23:00 07:00 15:00 23:00 Intake Total 1013.2 ml 1710 ml 670 ml 1214.5 ml 1800 ml Output Total 850 ml 1200 ml 850 ml Balance 163.2 ml 1710 ml -530 ml 364.5 ml 1800 ml IV Total 1013.2 ml 1710 ml 550 ml 830.5 ml 1800 ml Tube Feeding 264 ml Other 120 ml 120 ml Output Urine Total 850 ml 1200 ml 850 ml # Bowel Movements 0 1 1 Physical Exam GENERAL: Intubated, sedated SKIN: Warm and dry. HEAD: Normocephalic. EYES: No scleral icterus. No injection or drainage. NECK: Supple, trachea midline. No JVD or lymphadenopathy. CARDIOVASCULAR: Regular rate and rhythm without murmurs, gallops, or rubs. RESPIRATORY: Breath sounds equal bilaterally. No accessory muscle use. GASTROINTESTINAL: Abdomen soft, non-tender, nondistended. MUSCULOSKELETAL: No cyanosis, or edema. Laboratory Laboratory Tests Test 12/21/17 03:25 12/21/17 03:40 12/21/17 10:08 12/21/17 11:00 Blood Urea Nitrogen 25 MG/DL Creatinine 0.67 MG/DL Random Glucose 232 MG/DL Total Protein 6.3 GM/DL Albumin 1.3 GM/DL Calcium Level 8.4 MG/DL Magnesium Level 2.5 MG/DL Alkaline Phosphatase 163 U/L Aspartate Amino Transf (AST/SGOT) 97 U/L Alanine Aminotransferase (ALT/SGPT) 39 U/L Total Bilirubin 0.4 MG/DL Sodium Level 149 MEQ/L Potassium Level 4.3 MEQ/L Chloride Level 113 MEQ/L Carbon Dioxide Level 27.7 MEQ/L Anion Gap 8 MEQ/L Estimat Glomerular Filtration Rate 95 ML/MIN White Blood Count 22.2 TH/MM3 Red Blood Count 3.82 MIL/MM3 Hemoglobin 11.4 GM/DL Hematocrit 34.6 % Mean Corpuscular Volume 90.6 FL Mean Corpuscular Hemoglobin 29.8 PG Mean Corpuscular Hemoglobin Concent 32.9 % Red Cell Distribution Width 13.9 % Platelet Count 372 TH/MM3 Mean Platelet Volume 9.0 FL Neutrophils (%) (Auto) 94.5 % Lymphocytes (%) (Auto) 3.0 % Monocytes (%) (Auto) 2.3 % Eosinophils (%) (Auto) 0.0 % Basophils (%) (Auto) 0.2 % Neutrophils # (Auto) 20.9 TH/MM3 Lymphocytes # (Auto) 0.7 TH/MM3 Monocytes # (Auto) 0.5 TH/MM3 Eosinophils # (Auto) 0.0 TH/MM3 Basophils # (Auto) 0.1 TH/MM3 CBC Comment AUTO DIFF Differential Total Cells Counted 100 Neutrophils % (Manual) 70 % Band Neutrophils % 23 % Lymphocytes % 1 % Monocytes % 2 % Neutrophils # (Manual) 21.5 TH/MM3 Myelocytes 4 % Differential Comment FINAL DIFF MANUAL Platelet Estimate NORMAL Platelet Morphology Comment NORMAL Red Cell Morphology Comment NORMAL Blood Gas Puncture Site ART LINE Blood Gas Patient Temperature 98.6 Blood Gas HCO3 30 mmol/L Blood Gas Base Excess 5.3 mmol/L Blood Gas Oxygen Saturation 96 % Arterial Blood pH 7.38 Arterial Blood Partial Pressure CO2 52 mmHg Arterial Blood Partial Pressure O2 115 mmHg Arterial Blood Oxygen Content 17.3 Vol % Arterial Blood Carboxyhemoglobin 0.5 % Arterial Blood Methemoglobin 1.1 % Blood Gas Hemoglobin 12.6 G/DL Oxygen Delivery Device VENTILATOR Blood Gas Ventilator Setting AC: 16/500/+8/100% Blood Gas Inspired Oxygen 100 % Bronchial Fluid Other Cells 1 % Bronchoalveolar Lavage WBC 415 /MM3 Bronchoalveolar Lavage RBC 4185 /MM3 Bronchoalveolar Lavage Neutrophils 94 % Bronchoalveolar Lavage Lymphocytes 2 % Bronchoalveolar Lavage Histiocytes 3 % Bronchoalveolar Lavage Diff Comment Lavage Fluid Total Volume 16.0 ML Lavage Fluid Total WBC Count 6.640 MILLION Test 12/21/17 11:45 12/21/17 14:49 Lactic Acid Level 1.4 mmol/L Troponin I 3.18 NG/ML 3.37 NG/ML Human Chorionic Gonadotropin, Quant LESS THAN 1 MIU/ML Imaging Last 24 hours Impressions Chest X-Ray 12/21/17 0907 Signed Impressions: Service Date/Time: Thursday, December 21, 2017 09:19 - CONCLUSION: 1. No pneumothorax status post placement of left internal jugular central line which has its tip in the superior vena cava. 2. Slight improvement of the diffuse pulmonary infiltrates bilaterally. Rito Shirley MD Chest X-Ray 12/21/17 0600 Signed Impressions: Service Date/Time: Thursday, December 21, 2017 03:42 - CONCLUSION: Worsening bilateral parenchymal airspace disease. Jaylen Kendall MD Chest X-Ray 12/21/17 0000 Signed Impressions: Service Date/Time: Thursday, December 21, 2017 11:40 - CONCLUSION: 1. Extensive pulmonary and Hernandez with probable pneumonia. Clinical correlation is recommended. 2. Stable cardiomegaly. 3. Multiple tubes and lines are stable. Rito Shirley MD Assessment and Plan Problem List: (1) Sepsis due to methicillin resistant Staphylococcus aureus (MRSA) ICD Codes: A41.02 - Sepsis due to Methicillin resistant Staphylococcus aureus (2) ARDS (adult respiratory distress syndrome) ICD Codes: J80 - Acute respiratory distress syndrome (3) Bilateral pneumonia ICD Codes: J18.9 - Pneumonia, unspecified organism Status: Acute (4) Acute hypoxemic respiratory failure ICD Codes: J96.01 - Acute respiratory failure with hypoxia (5) Paroxysmal atrial fibrillation ICD Codes: I48.0 - Paroxysmal atrial fibrillation (6) Bradycardia ICD Codes: R00.1 - Bradycardia, unspecified Assessment and Plan Episodes of bradycardia, likely respiratory related, possibly exacerbated by sotalol (started for a fib). Troponin elevated, but not trending in either direction. JEANINE with no evidence of endocarditis, LV fx preserved. Stays in SR on sotalol, no recurrent AF, will decrease dose. Continue tx for sepsis. Continue vent support, ICU care. Valorie Bray MD Dec 21, 2017 17:34
--- NOTE | 2017-12-21 17:51 | ECHRPT ---
Indication: EF assessment of CHF CONCLUSIONS Limited study. Normal left ventricular size. Wall thickness is normal. The left ventricular systolic function is low normal with an estimated ejection fraction of 50%. Re gional wall motion abnormalities cannot be completely ruled out. BP: 126 / 58 HR: 97 Rhythm: Sinus Technical Quality:Fair FINDINGS LEFT VENTRICLE Normal left ventricular size. Wall thickness is normal. The left ventricular systolic function is low normal with an estimated ejection fraction of 50%. Re gional wall motion abnormalities cannot be completely ruled out. RIGHT VENTRICLE The right ventricle was not well visualized. LEFT ATRIUM The left atrial size is normal. RIGHT ATRIUM The right atrial size is normal. MITRAL VALVE Structurally normal mitral valve. AORTIC VALVE The aortic valve is not well visualized. TRICUSPID VALVE Structurally normal tricuspid valve. PULMONARY VALVE The pulmonary valve is not well visualized. PERICARDIUM No pericardial effusion. Abdoulaye Arguello MD (Electronically Signed) Final Date:21 December 2017 17:50
[2017-12-21] MEDS: MUPIROCIN 2% OINT 1 APPLIC/GM SYR EACH NARE SCH (20:18)
[2017-12-21] MEDS: RESP: BUDESONIDE 0.5 MG/2 ML NEB NEB SCH (20:24)
[2017-12-21] MEDS ORDERED: PILL SPLITTER OTHER PRN (21:00)
[2017-12-21 22:19] LABS: PHOSPHORUS 3.5 MG/DL (2.5-4.9)
[2017-12-21 22:33] LABS: TROPONIN I 1.95 NG/ML (0.02-0.05)
[2017-12-22] VITALS (18 sets, daily range): BP systolic 98–136; BP diastolic 52–84; PULSE 63–80; RESP 0–16; TEMP 98.4–101.3; O2SAT 92–99
[2017-12-22] MEDS: INSULIN NovoLIN REGULAR SUPPLEMENTAL SCALE SQ SCH ×5 (00:21→23:47)
[2017-12-22] MEDS: methylPREDNISolone SOD SUCC 125 MG/2 ML VIAL IV PUSH SCH ×3 (01:56→17:35)
[2017-12-22] MEDS: MEROPENEM INJ 1,000 MG in SODIUM CHLORIDE 0.9% INJ 100 ML IV SCH ×3 (02:11→17:35)
[2017-12-22] MEDS: CISATRACURIUM INJ 100 MG in SODIUM CHLOR 0.9% 250 ML INJ 250 ML IV PRN ×4 (02:11→18:21)
[2017-12-22] MEDS: CHLORHEXIDINE GLUCONATE 2 % 1 PACK (2 CLOTHS) TOP SCH (04:00)
[2017-12-22] MEDS: PROPOFOL 1000 MG/100 ML INJ 100 ML IV PRN ×5 (04:07→21:53)
[2017-12-22] MEDS: DOPamine 800 MG/500 ML INJ 500 ML IV PRN ×2 (04:08→22:45)
[2017-12-22 04:39] LABS: AUTOMATED NEUTROPHIL # 22.5 TH/MM3 (1.8-7.7); BASOPHIL # 0.1 TH/MM3 (0-0.2); BASOPHIL % 0.3 % (0.0-2.0); HEMATOCRIT 33.2 % (35.0-46.0); HEMOGLOBIN 10.9 GM/DL (11.6-15.3); LYMPH % 2.7 % (9.0-44.0); LYMPHOCYTE # 0.7 TH/MM3 (1.0-4.8); MEAN CELL VOLUME 89.6 FL (80.0-100.0); MEAN CORPUSCULAR HEMOGLOBIN 29.5 PG (27.0-34.0); MEAN CORPUSCULAR HGB CONC 32.9 % (32.0-36.0); MEAN PLATELET VOLUME 7.8 FL (7.0-11.0); MONO % 3.3 % (0.0-8.0); MONOCYTE # 0.8 TH/MM3 (0-0.9); NEUT % 93.7 % (16.0-70.0); PLATELET COUNT 441 TH/MM3 (150-450); RED BLOOD COUNT 3.71 MIL/MM3 (4.00-5.30); RED CELL DISTRIBUTION WIDTH 13.6 % (11.6-17.2)
[2017-12-22] MEDS: HEPARIN SODIUM - SQ 10,000 UNITS/ML VIAL SQ SCH ×3 (04:42→20:03)
[2017-12-22] MEDS: FAMOTIDINE 20 MG/2 ML VIAL IV PUSH SCH ×2 (04:44→16:14)
[2017-12-22 05:08] LABS: ALBUMIN 1.8 GM/DL (3.4-5.0); ALT (GPT) 27 U/L (10-53); AST (GOT) 21 U/L (15-37); BICARBONATE 29.7 MEQ/L (21.0-32.0); BLOOD UREA NITROGEN 33 MG/DL (7-18); CALCIUM 7.7 MG/DL (8.5-10.1); CHLORIDE 114 MEQ/L (98-107); CHOLESTEROL 98 MG/DL (120-200); CREATININE 0.94 MG/DL (0.50-1.00); GLOMERULAR FILTRATION RATE 64 ML/MIN (>89); GLUCOSE,RANDOM 234 MG/DL (74-106); MAGNESIUM 2.4 MG/DL (1.5-2.5); PHOSPHORUS 3.3 MG/DL (2.5-4.9); SODIUM (NA) 149 MEQ/L (136-145); TRIGLYCERIDES 362 MG/DL (42-150)
[2017-12-22 05:11] LABS: ALKALINE PHOSPHATASE 119 U/L (45-117); CHOLESTEROL/ HDL RATIO 7.59 RATIO; HDL CHOLESTEROL 12.9 MG/DL (40.0-60.0); LDL CHOLESTEROL 13 MG/DL (0-99); TOTAL BILIRUBIN ADULT 0.4 MG/DL (0.2-1.0); TOTAL PROTEIN 6.3 GM/DL (6.4-8.2)
[2017-12-22 05:18] LABS: TROPONIN I 1.26 NG/ML (0.02-0.05)
[2017-12-22 05:32] LABS: BANDS 8 % (0-6); LYMPHOCYTES 2 % (9-44); METAMYELOCYTES 1 % (0-1); MONOCYTES 3 % (0-8); MYELOCYTES 2 % (0-0); NEUTROPHIL # MANUAL DIFF 22.8 TH/MM3 (1.8-7.7); POLYS (SEG NEUTROPHILS) 84 % (16-70)
[2017-12-22 05:34] LABS: TOXIC GRANULATION 2+ (NORMAL)
[2017-12-22 05:35] LABS: STOMATOCYTES 1+ (NORMAL)
[2017-12-22] MEDS: fentaNYL DRIP 250 ML IV PRN ×2 (05:50→16:42)
[2017-12-22] MEDS: RESP: ALBUTEROL 2.5 MG/IPRATROPIUM 0.5 MG NEB (SCH) INH ×6 (05:55→23:39)
--- NOTE | 2017-12-22 06:29 | RADRPT ---
EXAM DATE/TIME: 12/22/2017 03:38 [facility] COMPARISON: CHEST SINGLE AP, December 21, 2017, 11:40. INDICATIONS : Shortness of breath, possible pulmonary disease. MEDICAL HISTORY : Sepsis. Pneumonia SURGICAL HISTORY : Cholecystectomy. Hysterectomy. ENCOUNTER: Subsequent ACUITY: 1 week PAIN SCORE: Non-responsive. LOCATION: Bilateral chest FINDINGS: A single view of the chest demonstrates bilateral pneumonic infiltrates which actually show some mini mal improvement, particularly on the right. Possible associated right-sided effusion. Heart size is u pper limits of normal. Degenerative spurring of the dorsal spine. Life-support tubes remain stable in position CONCLUSION: Slight interval improvement in the bilateral pulmonary parenchymal infiltrates, particularly on the right. Jaylen Kendall MD on December 22, 2017 at 6:26 Board Certified Radiologist. This report was verified electronically.
--- NOTE | 2017-12-22 06:57 | HHI.CCPN ---
Subjective Remarks/Hospital Course This is a 47-year-old female with a history of anxiety disorder, that presented to [facility] on with complaints of chest pain and dyspnea that has been lasting for the past 4 days. The patient was transferred to [facility]. Imaging and laboratory studies were initially performed which showed a chest x-ray with bilateral patchy airspace consolidation consistent with bronchial pneumonia, and her lactic acid level was noted to be 3.1. The patient's oxygen requirements continue to increase the patient became tachypneic with a respiratory rate in the 40s and tachycardic, heart rate in the 120s. Pulmonology was consulted, CT was performed which revealed no pulmonary emboli , will several cavitary lesions, dense consolidation at both lung bases, air bronchograms and extensive pneumomediastinum extending into the lower neck and upper chest .ICU was requested to see patient. Upon observation the patient was severely dyspneic, with significant accessory muscle movement, violently coughing hemoptysis. Decision made to intubate patient for airway protection. 12/17 Patient is sedated with Diprivan and versed infusion. afebrile. s/p bronch yesterday by Dr. Klein. 12/18 Patient remains sedated with Versed 10mg/hr and Fentanyl 250 mics. Tmax 102.1 yesterday. + MRSA in bronch and GPC/MRSA from [facility] 12/15 from [facility] 12/19: Patient developed respiratory distress and SVT this am with vent dyssynchrony with air trapping and elevated peak pressure. FiO2 increased to 100%, started on Nimbex infusion. Intermittently tachycardic, occasional bradycardia also. EKG shows sinus rhythm. Patient is very critical now. Will consult cardiology for JEANINE, and also regarding SVT. Chest x-ray shows worsening bilateral infiltrates concerning for ARDS 12/20: Remains intubated heavily sedated and neuromuscularly paralyzed to maintain ventilator synchrony and control peak pressures. Chest x-ray shows persistent bilateral infiltrates. JEANINE planned for today. All cultures so far positive for MRSA. Tachy Arrhythmia is better controlled after starting sotalol 12/21: CODE BLUE overnight when patient became bradycardic. Received epinephrine with chest compressions with return of spontaneous relief within 5 minutes according to RN. Currently on peripheral dopamine at 10 mcg/kg/min. FiO2 currently at 100%. Chest x-ray revealed worsening diffuse bilateral pulmonary infiltrates Subjective 12/22: T-max 101.1 Fahrenheit. Currently 98.9 Fahrenheit. +2493 cc past 24 hours. No bowel movement. Currently on roto-prone bed on epoprostenol at 50, 000 ng/kg/min aerosolized. On tube feeds Glucerna 1.5 at 20 cc an hour. Objective Vital Signs Date Time Temp Pulse Resp B/P (MAP) Pulse Ox O2 Delivery O2 Flow Rate FiO2 12/22/17 06:36 80 12/22/17 06:00 71 12/22/17 05:18 99 12/22/17 04:08 111/75 12/22/17 04:00 98.9 0 Intake and Output 12/22/17 12/22/17 12/23/17 08:00 16:00 00:00 Intake Total 1003 ml Output Total 850 ml Balance 153 ml Result Diagram: 12/22/17 0420 12/22/17 0420 Other Results Microbiology Date/Time Source Procedure Growth Status 12/19/17 06:23 Blood Peripheral Aerobic Blood Culture - Preliminary NO GROWTH IN 2 DAYS Resulted 12/19/17 06:23 Blood Peripheral Anaerobic Blood Culture - Preliminary NO GROWTH IN 2 DAYS Resulted 12/21/17 11:00 Bronchial Washings Right Mid Lobe Fungal Smear - Final NO FUNGAL ELEMENTS SEEN. Resulted 12/21/17 11:00 Bronchial Washings Right Mid Lobe Fungal Culture Pending Resulted 12/20/17 18:35 Urine Catheterized Urine Urine Culture - Preliminary NO GROWTH IN 24 HOURS. Resulted Imaging Last Impressions Chest X-Ray 12/22/17 0600 Signed Impressions: Service Date/Time: Friday, December 22, 2017 03:38 - CONCLUSION: Slight interval improvement in the bilateral pulmonary parenchymal infiltrates, particularly on the right. Jaylen Kendall MD CT Angiography 12/16/17 0000 Signed Impressions: Service Date/Time: Saturday, December 16, 2017 13:49 - CONCLUSION: 1. Negative for pulmonary emboli. 2. Dense consolidation in the lungs especially the lung bases with several cavitary lesions as above. Findings are most characteristic of pneumonia. Cannot exclude septic embolic disease. No significant effusion. Malachi Hardin MD Objective Remarks GENERAL: 47-year-old female currently in roto-prone bed orotracheally intubated SKIN: Warm and dry. HEAD: Normocephalic. EYES: No scleral icterus. No injection or drainage. ENT: Orotracheally intubated NECK: Supple, trachea midline. Left IJ CVL is clean dry and intact CARDIOVASCULAR: Currently normal sinus rhythm. RRR. S1, S2 no strip without murmur RESPIRATORY: Breath sounds equal bilaterally. Bilateral coarse rhonchi and wheezes. GASTROINTESTINAL: Abdomen soft, non-tender, nondistended. MUSCULOSKELETAL: No significant peripheral edema Neuro: No gag. Pupils are reactive about 2 mm. No withdrawal to pain. Status post cisatracurium Urinary Catheter: No Assessment to: Continue Vascular Central Line Catheter: Yes Assessment to: Continue Date of Insertion: Dec 20, 2017 Line: Central Venous Catheter Side: Left Location: Internal, Jugular A/P Assessment and Plan Neuro/Psych: Anxiety disorder THC use Currently on propofol at 50 mg/kg/min, fentanyl drip at 250 mcg an hour and midazolam drip at 10 mg an hour for sedation/analgesia while intubated Neuromuscular paralysis with cisatracurium currently at 3 mcg/min infusion s for ventilator dyssynchrony and developing ARDS. Patient at risk for CIM however extremely hypoxic with severe ARDS. UDS: + benzos, cannabinoids Acetaminophen 650 mg liquid by tube every 6 hours as needed fever Respiratory: Acute hypoxemic respiratory failure ARDS Small right Pneumothorax Pneumomediastinum Hemoptysis by history Pulmonary cavitary lesions ACV 16/500/10/100 Ventilator bundle Albuterol/ipratropium aerosols every 4 hours with albuterol aerosols every 2 hours as needed dyspnea Budesonide 0.5/2 1 inhalation twice daily Methylprednisolone succinate 60 mg IV every [address] Tejeda pulmonology following No spontaneous breathing trials or sedation medication due to neuromuscular paralysis 12/16 -CT Angio - extensive pneumomediastinum extending into neck and upper chest. Dense consolidation at both lung bases, air bronchograms , 2 cavitary lesions 12/16-bronchoscopy performed by Dr. Klein, no active sites noted for bleeding, moderate purulent mucus bilaterally noted 2 BAL samples sent CTS is following for Pneumomediastinum-per Dr. Guadarrama no intervention at this time. A.m. ABG pending. Chest x-ray in a.m. revealed stable bilateral infiltrates. Cardiovascular: Paroxysmal atrial fibrillation SVT Probable infective endocarditis Status post CODE BLUE -likely respiratory induced Elevated troponin Currently one quarter normal saline at 42 cc an hour Currently on dopamine at 10 mg/kg/min to maintain mean arterial pressure greater than equal to 65 Started on sotalol 40 mg twice daily by Dr. Bray 12/19 Monitor HR and BP keep MAP>65mmHg Transesophageal echocardiogram 12/20 revealed no signs of endocarditis. Preserved LV function. Trace MR/TR Echo 3 showed EF 60-65% Echo 12/21 EF 50%. Cannot rule out regional wall motion and ability Troponin currently 1.26 and downward trending Aspirin 81 mg p.o. daily FEN/Renal: Hypernatremia Monitor renal function Electrolytes replacement per protocol. Switch IV fluids to one quarter normal saline at 42 cc now. free water 100 cc every 4 hours GI: Elevated AST and alkaline phosphatase Hypoalbuminemia On tube feeds- Glucerna 1.5 @ 20ml/hr. with free water 100 cc every 6 hours. Nutrition recommends Jevity 1.5 at 55 cc Famotidine 20 mg twice daily GI prophylaxis Docusate sodium/senna 1 tablet twice daily for bowel regimen ID: MRSA Bacteremia Severe sepsis ABX per ID: Continue daptomycin 500 mg IV every 24 hours and ceftaroline 600 mg IV every 12 hours day #4 started 12/19 Started meropenem 1 g IV every 8 hours 3 day #2 Persistent high-grade bacteremia with MRSA concerning for endocarditis JEANINE revealed no signs of endocarditis 12/20 12/15 [facility] from [facility]- MRSA 12/16 Bronch BAL- MRSA [facility] 12/16, 12/17 12/18: MRSA Blood culture 12/19 no growth 12/20 sputum/urine pending influenza, pneumococcal and Legionella antigens- Negative Heme: Leukocytosis Normocytic anemia Monitor CBC. Follow trends No indication for transfusion of blood product at this time Endocrine: Hyperglycemia likely steroid induced Low TSH 0.012 Sliding scale insulin Accu-Cheks every 6 hours to maintain euglycemia/medium regimen Novulin R initiated 12/21. 8 units sliding scale insulin past 24 hours. Start insulin detemir 5 units subcu twice daily while on high-dose methylprednisolone succinate Check free T3 and T4 Prophylaxis: GI Prophylaxis Famotidine IV DVT Prophylaxis -- SCDs -heparin SQ Lines: Left IJ CVL day #2 placed 3 Left radial arterial line day #2 placed 3 by respiratory therapy Critical Care: The total critical care time was 35 minutes. Time to perform other separately billable procedures was not included in the critical care time. Kashmir Lee MD Dec 22, 2017 06:57
[2017-12-22] MEDS ORDERED: FUROSEMIDE 20 MG/2 ML VIAL IV PUSH ONE (07:00)
[2017-12-22] MEDS: MUPIROCIN 2% OINT 1 APPLIC/GM SYR EACH NARE SCH ×2 (08:20→20:03)
[2017-12-22] MEDS: MIDAZOLAM 100 MG/100 ML INJ 100 ML IV PRN ×2 (08:20→18:42)
[2017-12-22] MEDS: CHLORHEXIDINE 0.12% (ORAL KIT) 15 ML CUP MT SCH ×2 (08:20→20:04)
[2017-12-22] MEDS: SOTALOL HCL 80 MG TAB PEG SCH ×2 (08:21→20:03)
[2017-12-22] MEDS: ASPIRIN 81 MG CHEW TAB CHEW SCH (08:22)
[2017-12-22] MEDS: DOCUSATE SODIUM 50 MG/SENNA 8.6 MG TAB PO SCH ×2 (08:22→20:03)
[2017-12-22] MEDS: SODIUM CHLORIDE 0.9% FLUSH 10 ML FLUSH IV FLUSH SCH ×3 (08:23→20:04)
[2017-12-22] MEDS: INSULIN DETEMIR 100 UNITS/ML VIAL SQ SCH ×2 (08:23→20:03)
[2017-12-22] MEDS: RESP: BUDESONIDE 0.5 MG/2 ML NEB NEB SCH ×2 (09:05→19:33)
[2017-12-22] MEDS: SODIUM CHLORIDE 23.4% INJ 38.5 MEQ in WATER STERILE FOR INJ 1,000 ML IV SCH (09:33)
[2017-12-22] MEDS: ARTIFICIAL TEARS OPTH OINT 3.5 APPLIC/3.5 GM TUBO EACH EYE SCH ×2 (09:34→20:04)
[2017-12-22] MEDS: CEFTAROLINE INJ 600 MG in SODIUM CHLORIDE 0.9% INJ 100 ML IV SCH ×2 (09:34→21:02)
[2017-12-22 10:33] LABS: FREE T3 0.62 PG/ML (2.18-3.98); FREE T4 0.58 NG/DL (0.76-1.46)
--- NOTE | 2017-12-22 11:51 | HHI.IDPN ---
Note Infectious Disease Note ID coverage. Notes reviewed. Discussed with RN. 47-year-old female, who initially presented to the [facility] ED complaining of 4 day history of chest pain and shortness of breath. Chest x-ray showed bilateral patchy basilar infiltrates. CTA did not show any pulmonary embolism, showed bilateral infiltrates with some cavitary lesions noted. She was transferred to the main hospital, and she apparently had some blood in the sputum. She ended up getting intubated. Infectious disease consultation has been requested to evaluate the patient with pneumonia D/W RN Coded last night On dopamine now On the vent, FiO2 at 70%. Bradycardic with heart rate in the 50s. All BC with MRSA 12/15-12/18 Blood culture from 12/19 has no growth. Sputum from 12/20 has gram-positive cocci. WBC rising JEANINE no vegetation Antibiotics Cubicin Teflaro Meropenem Current Medications Medications (Trade) Dose Ordered Sig/Marily Route PRN Reason Start Time Stop Time Status Last Admin Dose Admin Sodium Chloride (NS Flush) 2 ml UNSCH PRN IV FLUSH FLUSH AFTER USING IV ACCESS 12/15/17 22:30 Sodium Chloride (NS Flush) 2 ml BID IV FLUSH 12/16/17 09:00 12/22/17 08:23 Guaifenesin/ Dextromethorphan (Robitussin Dm 200-20 Mg/10 ml Liq) 10 ml Q4H PRN PO COUGH 12/15/17 22:30 Future Hold Heparin Sodium (Porcine) (Heparin Inj) 5,000 units Q8H SQ 12/16/17 12:00 12/22/17 04:42 Morphine Sulfate (Morphine Inj) 1 mg Q4H PRN IM PAIN SCALE 7 TO 10 12/16/17 09:15 Future Hold 12/16/17 10:11 Guaifenesin (Mucinex Er) 600 mg BID PO 12/16/17 09:15 Future Hold 12/16/17 10:51 Propofol 100 ml @ 2.1 mls/hr TITRATE PRN IV SEDATION 12/16/17 14:45 12/22/17 07:01 Fentanyl Citrate 250 ml @ 5 mls/hr TITRATE PRN IV SEDATION 12/16/17 16:30 12/22/17 05:50 Famotidine (Pepcid Inj) 20 mg Q12H IV PUSH 12/16/17 17:00 12/22/17 04:44 Miscellaneous Information 1 Q361D XX 12/16/17 16:45 Chlorhexidine Gluconate (Chlorhexidine 2% Cloth) Taper DAILY@04 TOP 12/17/17 04:00 12/13/18 03:59 12/22/17 04:00 Chlorhexidine Gluconate (Chlorhexidine 2% Cloth) 3 pack UNSCH PRN TOP HYGIENIC CARE 12/16/17 16:45 Senna/Docusate Sodium (Florinda-Colace) 1 tab BID PO 12/16/17 21:00 12/22/17 08:22 Magnesium Hydroxide (Milk Of Magnesia Liq) 30 ml Q12H PRN PO Mild constipation 12/16/17 16:45 Sennosides (Senokot) 17.2 mg Q12H PRN PO Moderate constipation 12/16/17 16:45 Bisacodyl (Dulcolax Supp) 10 mg DAILY PRN RECTAL SEVERE CONSITIPATION 12/16/17 16:45 Lactulose (Lactulose Liq) 30 ml DAILY PRN PO SEVERE CONSITIPATION 12/16/17 16:45 Chlorhexidine Gluconate (Peridex 0.12% Liq) 15 ml BID@08,20 MT 12/16/17 20:00 12/22/17 08:20 Midazolam HCl 100 ml @ 2 mls/hr TITRATE PRN IV SEDATION 12/16/17 17:30 12/22/17 08:20 Potassium Chloride 100 ml @ 50 mls/hr Q2H PRN IV For Potassium 2.8 - 3.2 mEq/L 12/17/17 07:45 Potassium Chloride 100 ml @ 50 mls/hr Q2H PRN IV For Potassium 2.8 - 3.2 mEq/L 12/17/17 07:45 Potassium Bicarb/ Potassium Chloride (K-Lyte Cl Eff) 50 meq UNSCH PRN PO For Potassium 3.3 - 3.5 mEq/L 12/17/17 07:45 Potassium Chloride 100 ml @ 25 mls/hr UNSCH PRN IV For Potassium 3.3 - 3.5 mEq/L 12/17/17 07:45 Potassium Chloride 100 ml @ 50 mls/hr Q2H PRN IV For Potassium 3.3 - 3.5 mEq/L 12/17/17 07:45 Magnesium Sulfate 4 gm/Sodium Chloride 100 ml @ 50 mls/hr UNSCH PRN IV For Magnesium 0.9 - 1.1 mg/dL 12/17/17 07:45 Magnesium Oxide (Mag-Ox) 800 mg UNSCH PRN PO For Magnesium 1.2 - 1.6 mg/dL 12/17/17 07:45 Magnesium Sulfate 2 gm/Sodium Chloride 100 ml @ 50 mls/hr UNSCH PRN IV For Magnesium 1.2 - 1.6 mg/dL 12/17/17 07:45 Potassium Phosphate (K-Phos) 2,000 mg Q4H PRN PO For Phosphorus < 2.5 mg/dL 12/17/17 07:45 12/17/17 23:49 Sodium Phosphate 30 mmol/Sodium Chloride 250 ml @ 42 mls/hr UNSCH PRN IV For Phosphorus < 2.5 mg/dL 12/17/17 07:45 12/18/17 08:40 Potassium Phosphate (K-Phos) 2,000 mg UNSCH PRN PO/TUBE SEE LABEL COMMENTS 12/17/17 07:45 Potassium Phosphate 30 mmol/ Sodium Chloride 260 ml @ 42 mls/hr UNSCH PRN IV SEE LABEL COMMENTS 12/17/17 07:45 12/19/17 07:57 Ceftaroline Fosamil 600 mg/ Sodium Chloride 100 ml @ 100 mls/hr Q12H IV 12/19/17 10:00 12/22/17 09:34 Daptomycin 500 mg/ Sodium Chloride 100 ml @ 200 mls/hr Q24H IV 12/19/17 12:00 12/21/17 11:38 Albuterol/ Ipratropium (Duoneb Neb) 1 ampule Q4HR NEB INH 12/20/17 12:00 12/22/17 09:05 Methylprednisolone Sodium Succinate (SoluMEDROL INJ) 60 mg Q8H IV PUSH 12/20/17 10:00 12/22/17 09:33 Dopamine HCl/ Dextrose 500 ml @ 0 mls/hr TITRATE PRN IV Blood Pressure Management 12/21/17 03:00 12/22/17 04:08 Terbutaline Sulfate (Brethine Inj) 1 mg UNSCH PRN SQ For Extravasation 12/21/17 03:00 Cisatracurium Besylate 100 mg/ Sodium Chloride 260 ml @ 11.62 mls/ hr TITRATE PRN IV TOF 1/4 12/21/17 08:30 12/22/17 06:37 Albuterol Sulfate (Albuterol Neb) 2.5 mg Q2HR NEB PRN NEB dyspnea 12/21/17 08:30 Budesonide (Pulmicort Respule Neb) 0.5 mg Q12HR NEB NEB 12/21/17 20:00 12/22/17 09:05 Sodium Chloride (NS Flush) DAILY IV FLUSH 12/22/17 09:00 Sodium Chloride (NS Flush) UNSCH PRN IV FLUSH SEE PROTOCOL 12/21/17 09:15 Mupirocin (Bactroban Nasal 2% Oint) 1 applic Taper BID EACH NARE 12/21/17 21:00 12/17/18 20:59 12/22/17 08:20 Artificial Tears (Lacrilube Opht Oint) 1 applic Q12HR EACH EYE 12/21/17 10:00 12/22/17 09:34 Dextrose (D50w (Vial) Inj) 50 ml UNSCH PRN IV PUSH HYPOGLYCEMIA-SEE COMMENTS 12/21/17 09:15 Glucagon (Glucagon Inj) 1 mg UNSCH PRN OTHER HYPOGLYCEMIA-SEE COMMENTS 12/21/17 09:15 Insulin Human Regular (NovoLIN R SUPPLEMENTAL SCALE) 1 Q6HR SQ 12/21/17 12:00 12/22/17 05:24 Meropenem 1000 mg/ Sodium Chloride 100 ml @ 200 mls/hr Q8H IV 12/21/17 11:00 12/22/17 10:24 Acetaminophen (Tylenol 650 Mg/ 20 ml Liq) 650 mg Q6H PRN NG fever 12/21/17 09:30 12/21/17 12:23 Epoprostenol Sodium 75 ml/ Sodium Chloride 100 ml @ 5 mls/hr Q8H NEB 12/21/17 10:00 12/21/17 21:10 Sotalol HCl (Betapace) 40 mg Q12HR PEG 12/21/17 21:00 12/22/17 08:21 Miscellaneous (Pill Splitter) 1 ea UNSCH PRN OTHER SEE LABEL COMMENTS 12/21/17 21:00 Sodium Chloride 38.5 meq/Sterile Water 1,009.625 ml @ 42 mls/hr Q24H IV 12/22/17 08:00 12/22/17 09:33 Insulin Detemir (Levemir Inj) 5 units Q12HR SQ 12/22/17 09:00 12/22/17 08:23 Aspirin (Aspirin Chew) 81 mg DAILY CHEW 12/22/17 09:00 12/22/17 08:22 Lines BERNARD TLC - 12/21 Past Medical History Anxiety Past Surgical History Cholecystectomy Hysterectomy Allergies: Coded Allergies: No Known Allergies (Unverified , 12/15/17) Objective Vital Signs Date Time Temp Pulse Resp B/P (MAP) Pulse Ox O2 Delivery O2 Flow Rate FiO2 12/22/17 09:44 70 12/22/17 09:11 96 80 12/22/17 08:50 67 129/63 12/22/17 08:24 67 97/42 12/22/17 08:00 72 12/22/17 08:00 98.6 72 16 98/52 (67) 97 102/55 (71) 12/22/17 08:00 80 12/22/17 08:00 71 12/22/17 08:00 72 98/52 (67) 102/55 (71) 12/22/17 07:55 68 131/67 12/22/17 06:36 80 12/22/17 06:00 71 12/22/17 05:18 99 100 12/22/17 04:08 77 111/75 12/22/17 04:00 100 12/22/17 04:00 71 12/22/17 04:00 98.9 71 0 111/75 (87) 96 136/77 (96) 12/22/17 04:00 71 111/75 (87) 136/77 (96) 12/22/17 02:00 76 12/22/17 02:00 98 100 12/22/17 00:00 98.7 80 16 134/84 (101) 98 131/69 (89) 12/22/17 00:00 80 12/22/17 00:00 100 12/22/17 00:00 80 134/84 (101) 131/69 (89) 12/21/17 22:30 97 100 12/21/17 22:00 77 12/21/17 20:20 99 100 12/21/17 20:00 75 86/46 (59) 85/51 (62) 12/21/17 20:00 100 12/21/17 20:00 77 120/61 12/21/17 20:00 98.1 75 16 86/46 (59) 97 85/51 (62) 12/21/17 20:00 75 12/21/17 18:00 80 12/21/17 16:00 100.9 79 16 107/55 (72) 97 12/21/17 16:00 79 107/55 (72) 12/21/17 16:00 79 12/21/17 16:00 100 12/21/17 15:38 97 100 12/21/17 15:35 16 12/21/17 14:00 77 12/21/17 12:04 96 100 12/21/17 12:00 101.1 98 16 110/57 (74) 96 12/21/17 12:00 98 12/21/17 12:00 98 110/57 (74) 12/21/17 12:00 100 Laboratory Tests Test 12/21/17 03:40 12/22/17 04:20 White Blood Count 22.2 TH/MM3 24.0 TH/MM3 Red Blood Count 3.82 MIL/MM3 3.71 MIL/MM3 Hemoglobin 11.4 GM/DL 10.9 GM/DL Hematocrit 34.6 % 33.2 % Mean Corpuscular Volume 90.6 FL 89.6 FL Mean Corpuscular Hemoglobin 29.8 PG 29.5 PG Mean Corpuscular Hemoglobin Concent 32.9 % 32.9 % Red Cell Distribution Width 13.9 % 13.6 % Platelet Count 372 TH/MM3 441 TH/MM3 Mean Platelet Volume 9.0 FL 7.8 FL Neutrophils (%) (Auto) 94.5 % 93.7 % Lymphocytes (%) (Auto) 3.0 % 2.7 % Monocytes (%) (Auto) 2.3 % 3.3 % Eosinophils (%) (Auto) 0.0 % 0.0 % Basophils (%) (Auto) 0.2 % 0.3 % Neutrophils # (Auto) 20.9 TH/MM3 22.5 TH/MM3 Lymphocytes # (Auto) 0.7 TH/MM3 0.7 TH/MM3 Monocytes # (Auto) 0.5 TH/MM3 0.8 TH/MM3 Eosinophils # (Auto) 0.0 TH/MM3 0.0 TH/MM3 Basophils # (Auto) 0.1 TH/MM3 0.1 TH/MM3 CBC Comment AUTO DIFF AUTO DIFF Differential Total Cells Counted 100 100 Neutrophils % (Manual) 70 % 84 % Band Neutrophils % 23 % 8 % Lymphocytes % 1 % 2 % Monocytes % 2 % 3 % Neutrophils # (Manual) 21.5 TH/MM3 22.8 TH/MM3 Myelocytes 4 % 2 % Differential Comment FINAL DIFF MANUAL FINAL DIFF MANUAL Platelet Estimate NORMAL HIGH Platelet Morphology Comment NORMAL NORMAL Red Cell Morphology Comment NORMAL Metamyelocytes 1 % Toxic Granulation 2+ Stomatocytes 1+ Laboratory Tests Test 12/21/17 03:25 12/21/17 11:45 12/21/17 14:49 12/21/17 21:08 Blood Urea Nitrogen 25 MG/DL Creatinine 0.67 MG/DL Random Glucose 232 MG/DL Total Protein 6.3 GM/DL Albumin 1.3 GM/DL Calcium Level 8.4 MG/DL Magnesium Level 2.5 MG/DL Alkaline Phosphatase 163 U/L Aspartate Amino Transf (AST/SGOT) 97 U/L Alanine Aminotransferase (ALT/SGPT) 39 U/L Total Bilirubin 0.4 MG/DL Sodium Level 149 MEQ/L Potassium Level 4.3 MEQ/L Chloride Level 113 MEQ/L Carbon Dioxide Level 27.7 MEQ/L Anion Gap 8 MEQ/L Estimat Glomerular Filtration Rate 95 ML/MIN Lactic Acid Level 1.4 mmol/L Troponin I 3.18 NG/ML 3.37 NG/ML 1.95 NG/ML Human Chorionic Gonadotropin, Quant LESS THAN 1 MIU/ML Phosphorus Level 3.5 MG/DL Thyroid Stimulating Hormone 3rd Gen 0.012 uIU/ML Test 12/22/17 04:20 Blood Urea Nitrogen 33 MG/DL Creatinine 0.94 MG/DL Random Glucose 234 MG/DL Total Protein 6.3 GM/DL Albumin 1.8 GM/DL Calcium Level 7.7 MG/DL Phosphorus Level 3.3 MG/DL Magnesium Level 2.4 MG/DL Alkaline Phosphatase 119 U/L Aspartate Amino Transf (AST/SGOT) 21 U/L Alanine Aminotransferase (ALT/SGPT) 27 U/L Total Bilirubin 0.4 MG/DL Sodium Level 149 MEQ/L Potassium Level 4.2 MEQ/L Chloride Level 114 MEQ/L Carbon Dioxide Level 29.7 MEQ/L Anion Gap 5 MEQ/L Estimat Glomerular Filtration Rate 64 ML/MIN Lactic Acid Level 1.7 mmol/L Troponin I 1.26 NG/ML Triglycerides Level 362 MG/DL Cholesterol Level 98 MG/DL LDL Cholesterol 13 MG/DL HDL Cholesterol 12.9 MG/DL Cholesterol/HDL Ratio 7.59 RATIO Free Thyroxine 0.58 NG/DL Free Triiodothyronine (T3) pg/dL 0.62 PG/ML Random Cortisol 26.7 MCG/DL Microbiology Date/Time Source Procedure Growth Status 12/21/17 11:00 Bronchial Washings Right Mid Lobe Fungal Smear - Final NO FUNGAL ELEMENTS SEEN. Resulted 12/21/17 11:00 Bronchial Washings Right Mid Lobe Fungal Culture Pending Resulted 12/21/17 11:00 Bronchial Washings Right Mid Lobe Acid Fast Stain Pending Received 12/21/17 11:00 Bronchial Washings Right Mid Lobe Mycobacterial Culture Pending Received 12/21/17 11:00 Bronchial Washings Right Mid Lobe Gram Stain - Final Resulted 12/21/17 11:00 Bronchial Washings Right Mid Lobe Bronchial Culture Pending Resulted 12/20/17 18:35 Sputum Endotracheal Gram Stain - Final Resulted 12/20/17 18:35 Sputum Endotracheal Sputum Culture - Preliminary IMMATURE GROWTH - REINCUBATE Resulted 12/20/17 18:35 Urine Catheterized Urine Urine Culture - Final NO GROWTH IN 48 HOURS. Complete Imaging Chest X-Ray 12/22/17 0600 Signed Impressions: Service Date/Time: Friday, December 22, 2017 03:38 - CONCLUSION: Slight interval improvement in the bilateral pulmonary parenchymal infiltrates, particularly on the right. Jaylen Kendall MD Chest X-Ray 12/17/17 0600 Signed Impressions: Service Date/Time: Sunday, December 17, 2017 03:12 - CONCLUSION: Unchanged bilateral infiltrates. Yomi Shipley Jr., MD Chest X-Ray 12/16/17 0000 Signed Impressions: Service Date/Time: Saturday, December 16, 2017 16:35 - CONCLUSION: 1. No significant pneumothorax identified on plain film post bronchoscopy. Endotracheal tube and basilar airspace disease not significantly changed. Malachi Hardin MD Chest X-Ray 12/16/17 0000 Signed Impressions: Service Date/Time: Saturday, December 16, 2017 15:22 - CONCLUSION: 1. Endotracheal tube in good position. Extensive pneumomediastinum. Dense consolidation in the lungs. Malachi Hardin MD CT Angiography 12/16/17 0000 Signed Impressions: Service Date/Time: Saturday, December 16, 2017 13:49 - CONCLUSION: 1. Negative for pulmonary emboli. 2. Dense consolidation in the lungs especially the lung bases with several cavitary lesions as above. Findings are most characteristic of pneumonia. Cannot exclude septic embolic disease. No significant effusion. Malachi Hardin MD Physical Exam GENERAL: On the ventilator. Unresponsive. HEENT: Unable to fully assess. No icterus. NECK: Supple without adenopathy. No swelling. LUNGS: Coarse bilateral rhonchi. HEART: Regular S1-S2. ABDOMEN: Obese, soft. No masses palpable. EXTREMITIES: No clubbing cyanosis or edema. SKIN: No rashes. NEUROLOGIC: Unresponsive. Unable to assess. PSYCH: Unresponsive. Unable to assess. IMPRESSION Sepsis present, high grade, on admission, MRSA on blood cultures - now with shock, S/P arrest. Bilateral pneumonia, some with cavitation - C/S with MRSA Very worrisome for endocarditis - clinically , but JEANINE negative Respiratory failure. worsening infiltrates, intubated. ?ARDS Patient is very critically ill. RECOMMENDATION Follow new cultures and adjust antibiotics Continue Cubicin until clearing of BC Continue Teflaro Continue meropenem for GNR coverage in the ling Monitor sputum culture. Repeat blood cultures. Follow temps Monitor progress. Wood Landeros MD Dec 22, 2017 11:51
[2017-12-22] MEDS: EPOPROSTENOL NEB SOLUTION 50 NG/KG/MIN 100 ML NEB SCH ×4 (11:56→23:48)
[2017-12-22] MEDS: DAPTOmycin INJ 500 MG in SODIUM CHLORIDE 0.9% INJ 100 ML IV SCH (11:57)
[2017-12-22] MEDS ORDERED: ALTEPLASE RECOMBINANT 2 MG VIAL INTRACATH PRN (14:15)
[2017-12-22] MEDS: ACETAMINOPHEN 650 MG/20.3 ML UDC NG PRN (16:14)
--- NOTE | 2017-12-22 18:22 | EKG ---
Date Performed: 12/21/2017 Time Performed: 12:52:40 PTAGE: 47 years EKG: Sinus rhythm . Normal ECG Compared to PREVIOUS TRACING , sinus arrhythmia no longer present. CO interval continues to be short. PREVIOUS TRACIN12/20/2017 06.57 DOCTOR: Denver Avina Interpretating Date/Time 12/22/2017 18:20:13
[2017-12-23] VITALS (20 sets, daily range): BP systolic 110–145; BP diastolic 51–78; PULSE 0–68; RESP 7–16; TEMP 98.1–99.1; O2SAT 93–97
[2017-12-23] MEDS: CISATRACURIUM INJ 100 MG in SODIUM CHLOR 0.9% 250 ML INJ 250 ML IV PRN ×4 (01:16→17:38)
[2017-12-23] MEDS: methylPREDNISolone SOD SUCC 125 MG/2 ML VIAL IV PUSH SCH ×3 (01:48→17:07)
[2017-12-23] MEDS: PROPOFOL 1000 MG/100 ML INJ 100 ML IV PRN ×6 (01:48→22:03)
[2017-12-23] MEDS: MEROPENEM INJ 1,000 MG in SODIUM CHLORIDE 0.9% INJ 100 ML IV SCH ×3 (02:00→17:37)
[2017-12-23] MEDS: fentaNYL DRIP 250 ML IV PRN ×2 (02:37→12:31)
[2017-12-23] MEDS: CHLORHEXIDINE GLUCONATE 2 % 1 PACK (2 CLOTHS) TOP SCH ×2 (04:00→21:43)
[2017-12-23] MEDS: HEPARIN SODIUM - SQ 10,000 UNITS/ML VIAL SQ SCH ×3 (04:18→19:42)
[2017-12-23] MEDS: FAMOTIDINE 20 MG/2 ML VIAL IV PUSH SCH ×2 (04:19→16:06)
[2017-12-23] MEDS: LEVOTHYROXINE SODIUM 25 MCG TAB PO SCH (05:52)
[2017-12-23] MEDS: MIDAZOLAM 100 MG/100 ML INJ 100 ML IV PRN (05:53)
[2017-12-23 06:09] LABS: AUTOMATED NEUTROPHIL # 18.1 TH/MM3 (1.8-7.7); BASOPHIL % 0.1 % (0.0-2.0); HEMATOCRIT 33.4 % (35.0-46.0); HEMOGLOBIN 10.9 GM/DL (11.6-15.3); LYMPH % 3.5 % (9.0-44.0); LYMPHOCYTE # 0.7 TH/MM3 (1.0-4.8); MEAN CELL VOLUME 89.6 FL (80.0-100.0); MEAN CORPUSCULAR HEMOGLOBIN 29.2 PG (27.0-34.0); MEAN CORPUSCULAR HGB CONC 32.6 % (32.0-36.0); MEAN PLATELET VOLUME 8.1 FL (7.0-11.0); MONO % 3.5 % (0.0-8.0); MONOCYTE # 0.7 TH/MM3 (0-0.9); NEUT % 92.9 % (16.0-70.0); PLATELET COUNT 410 TH/MM3 (150-450); RED BLOOD COUNT 3.72 MIL/MM3 (4.00-5.30); RED CELL DISTRIBUTION WIDTH 13.1 % (11.6-17.2); WHITE BLOOD COUNT 19.5 TH/MM3 (4.0-11.0)
[2017-12-23 06:10] LABS: BICARBONATE 27.6 MEQ/L (21.0-32.0); CALCIUM 7.7 MG/DL (8.5-10.1); CREATININE 0.79 MG/DL (0.50-1.00); MAGNESIUM 2.3 MG/DL (1.5-2.5); PHOSPHORUS 2.9 MG/DL (2.5-4.9)
[2017-12-23] MEDS: INSULIN NovoLIN REGULAR SUPPLEMENTAL SCALE SQ SCH ×4 (06:13→22:48)
--- NOTE | 2017-12-23 06:20 | RADRPT ---
EXAM DATE/TIME: 12/23/2017 04:39 [facility] COMPARISON: CHEST SINGLE AP, December 22, 2017, 3:38. INDICATIONS : Shortness of breath, possible pulmonary disease. MEDICAL HISTORY : Sepsis. pneumonia SURGICAL HISTORY : Cholecystectomy. Hysterectomy. ENCOUNTER: Subsequent ACUITY: 1 week PAIN SCORE: Non-responsive. LOCATION: Bilateral chest FINDINGS: A single view of the chest demonstrates bilateral airspace disease with possibly some resolving right -sided effusion. Endotracheal and nasogastric tubes as well as the left IJ central venous catheter ar e unchanged in position. Heart size is normal. Degenerative spurring of the dorsal spine.. CONCLUSION: 1. Bilateral persistent airspace disease with some improving aeration in the bases particularly on th e right. 2. Stable position of life support tubes Jaylen Kendall MD on December 23, 2017 at 6:17 Board Certified Radiologist. This report was verified electronically.
[2017-12-23 07:31] LABS: BANDS 1 % (0-6); LYMPHOCYTES 3 % (9-44); METAMYELOCYTES 4 % (0-1); MYELOCYTES 3 % (0-0); NEUTROPHIL # MANUAL DIFF 18.9 TH/MM3 (1.8-7.7); POLYS (SEG NEUTROPHILS) 89 % (16-70); TOXIC GRANULATION 1+ (NORMAL)
[2017-12-23] MEDS: RESP: BUDESONIDE 0.5 MG/2 ML NEB NEB SCH ×2 (07:48→19:37)
[2017-12-23] MEDS: RESP: ALBUTEROL 2.5 MG/IPRATROPIUM 0.5 MG NEB (SCH) INH ×6 (07:48→23:42)
[2017-12-23] MEDS: SODIUM CHLORIDE 0.9% FLUSH 10 ML FLUSH IV FLUSH SCH ×3 (09:00→19:41)
[2017-12-23] MEDS: SOTALOL HCL 80 MG TAB PEG SCH ×2 (09:00→19:18)
[2017-12-23] MEDS: DOCUSATE SODIUM 50 MG/SENNA 8.6 MG TAB PO SCH (09:44)
[2017-12-23] MEDS: INSULIN DETEMIR 100 UNITS/ML VIAL SQ SCH ×2 (09:44→19:41)
[2017-12-23] MEDS: SODIUM CHLORIDE 23.4% INJ 38.5 MEQ in WATER STERILE FOR INJ 1,000 ML IV SCH (09:44)
[2017-12-23] MEDS: ARTIFICIAL TEARS OPTH OINT 3.5 APPLIC/3.5 GM TUBO EACH EYE SCH ×2 (09:45→19:42)
[2017-12-23] MEDS: MUPIROCIN 2% OINT 1 APPLIC/GM SYR EACH NARE SCH ×2 (09:45→19:42)
[2017-12-23] MEDS: ASPIRIN 81 MG CHEW TAB CHEW SCH (09:46)
[2017-12-23] MEDS: CHLORHEXIDINE 0.12% (ORAL KIT) 15 ML CUP MT SCH ×2 (09:46→19:08)
[2017-12-23] MEDS: EPOPROSTENOL NEB SOLUTION 50 NG/KG/MIN 100 ML NEB SCH ×6 (10:09→22:03)
--- NOTE | 2017-12-23 10:16 | HHI.CCPN ---
Subjective Remarks/Hospital Course This is a 47-year-old female with a history of anxiety disorder, that presented to [facility] on with complaints of chest pain and dyspnea that has been lasting for the past 4 days. The patient was transferred to [facility]. Imaging and laboratory studies were initially performed which showed a chest x-ray with bilateral patchy airspace consolidation consistent with bronchial pneumonia, and her lactic acid level was noted to be 3.1. The patient's oxygen requirements continue to increase the patient became tachypneic with a respiratory rate in the 40s and tachycardic, heart rate in the 120s. Pulmonology was consulted, CT was performed which revealed no pulmonary emboli , will several cavitary lesions, dense consolidation at both lung bases, air bronchograms and extensive pneumomediastinum extending into the lower neck and upper chest .ICU was requested to see patient. Upon observation the patient was severely dyspneic, with significant accessory muscle movement, violently coughing hemoptysis. Decision made to intubate patient for airway protection. 12/17 Patient is sedated with Diprivan and versed infusion. afebrile. s/p bronch yesterday by Dr. Klein. 12/18 Patient remains sedated with Versed 10mg/hr and Fentanyl 250 mics. Tmax 102.1 yesterday. + MRSA in bronch and GPC/MRSA from [facility] 12/15 from [facility] 12/19: Patient developed respiratory distress and SVT this am with vent dyssynchrony with air trapping and elevated peak pressure. FiO2 increased to 100%, started on Nimbex infusion. Intermittently tachycardic, occasional bradycardia also. EKG shows sinus rhythm. Patient is very critical now. Will consult cardiology for JEANINE, and also regarding SVT. Chest x-ray shows worsening bilateral infiltrates concerning for ARDS 12/20: Remains intubated heavily sedated and neuromuscularly paralyzed to maintain ventilator synchrony and control peak pressures. Chest x-ray shows persistent bilateral infiltrates. JEANINE planned for today. All cultures so far positive for MRSA. Tachy Arrhythmia is better controlled after starting sotalol 12/21: CODE BLUE overnight when patient became bradycardic. Received epinephrine with chest compressions with return of spontaneous relief within 5 minutes according to RN. Currently on peripheral dopamine at 10 mcg/kg/min. FiO2 currently at 100%. Chest x-ray revealed worsening diffuse bilateral pulmonary infiltrates 12/22: T-max 101.1 Fahrenheit. Currently 98.9 Fahrenheit. +2493 cc past 24 hours. No bowel movement. Currently on roto-prone bed on epoprostenol at 50, 000 ng/kg/min aerosolized. On tube feeds Glucerna 1.5 at 20 cc an hour. Subjective 12/23: Overnight, when switching from supine to prone position patient 32nd episode of asystole resolved without chest compressions. We are currently patient has been prone position again with very slow with and without. Tolerating tube feeds now. Remains on cisatracurium drip at 4 mcg/min Objective Vital Signs Date Time Temp Pulse Resp B/P (MAP) Pulse Ox O2 Delivery O2 Flow Rate FiO2 12/23/17 08:00 70 12/23/17 08:00 98.9 12/23/17 08:00 61 12/23/17 08:00 16 129/65 (86) 94 113/54 (73) Intake and Output 12/23/17 12/23/17 12/24/17 08:00 16:00 00:00 Intake Total 1946 ml Output Total 1060 ml Balance 886 ml Result Diagram: 12/23/17 0400 12/23/17 0400 Other Results Microbiology Date/Time Source Procedure Growth Status 12/22/17 14:25 Blood Line Aerobic Blood Culture Pending Received 12/22/17 14:25 Blood Line Anaerobic Blood Culture Pending Received 12/21/17 11:00 Bronchial Washings Right Mid Lobe Fungal Smear - Final NO FUNGAL ELEMENTS SEEN. Resulted 12/21/17 11:00 Bronchial Washings Right Mid Lobe Fungal Culture Pending Resulted 12/20/17 18:35 Urine Catheterized Urine Urine Culture - Final NO GROWTH IN 48 HOURS. Complete Imaging Last Impressions Chest X-Ray 12/22/17 0600 Signed Impressions: Service Date/Time: Friday, December 22, 2017 03:38 - CONCLUSION: Slight interval improvement in the bilateral pulmonary parenchymal infiltrates, particularly on the right. Jaylen Kendall MD CT Angiography 12/16/17 0000 Signed Impressions: Service Date/Time: Saturday, December 16, 2017 13:49 - CONCLUSION: 1. Negative for pulmonary emboli. 2. Dense consolidation in the lungs especially the lung bases with several cavitary lesions as above. Findings are most characteristic of pneumonia. Cannot exclude septic embolic disease. No significant effusion. Malachi Hardin MD Objective Remarks GENERAL: 47-year-old female currently in roto-prone bed orotracheally intubated SKIN: Warm and dry. HEAD: Normocephalic. EYES: No scleral icterus. No injection or drainage. ENT: Orotracheally intubated NECK: Supple, trachea midline. Left IJ CVL is clean dry and intact CARDIOVASCULAR: Currently normal sinus rhythm. RRR. S1, S2 no strip without murmur RESPIRATORY: Breath sounds equal bilaterally. Bilateral coarse rhonchi and wheezes. GASTROINTESTINAL: Abdomen soft, non-tender, nondistended. MUSCULOSKELETAL: No significant peripheral edema Neuro: No gag. Pupils are reactive about 2 mm. No withdrawal to pain. Status post cisatracurium Urinary Catheter: Yes Assessment to: Continue [place] insert reason: Prolonged Immobilization Vascular Central Line Catheter: Yes Assessment to: Continue Date of Insertion: Dec 20, 2017 Line: Central Venous Catheter Side: Left Location: Internal, Jugular A/P Assessment and Plan Neuro/Psych: Anxiety disorder THC use Currently on propofol at 50 mg/kg/min, fentanyl drip at 250 mcg an hour and midazolam drip at 10 mg an hour for sedation/analgesia while intubated Neuromuscular paralysis with cisatracurium currently at 4 mcg/min infusion s for ventilator dyssynchrony and developing ARDS. Patient at risk for CIM however extremely hypoxic with severe ARDS. UDS: + benzos, cannabinoids Acetaminophen 650 mg liquid by tube every 6 hours as needed fever Respiratory: Acute hypoxemic respiratory failure ARDS Small right Pneumothorax Pneumomediastinum Hemoptysis by history Pulmonary cavitary lesions ACV 16/500/10/70 Ventilator bundle Albuterol/ipratropium aerosols every 4 hours with albuterol aerosols every 2 hours as needed dyspnea Budesonide 0.5/2 1 inhalation twice daily Methylprednisolone succinate 60 mg IV every [address] Tejeda pulmonology following No spontaneous breathing trials or sedation medication due to neuromuscular paralysis 12/16 -CT Angio - extensive pneumomediastinum extending into neck and upper chest. Dense consolidation at both lung bases, air bronchograms , 2 cavitary lesions 12/16-bronchoscopy performed by Dr. Klein, no active sites noted for bleeding, moderate purulent mucus bilaterally noted 2 BAL samples sent CTS is following for Pneumomediastinum-per Dr. Guadarrama no intervention at this time. A.m. ABG ordered chest x-ray in a.m. revealed slightly improved Cardiovascular: Paroxysmal atrial fibrillation SVT Probable infective endocarditis Status post CODE BLUE -likely respiratory induced Elevated troponin Currently one quarter normal saline at 42 cc an hour Currently on dopamine at 10 mg/kg/min to maintain mean arterial pressure greater than equal to 65 Started on sotalol 40 mg twice daily by Dr. Bray 12/19 Monitor HR and BP keep MAP>65mmHg Transesophageal echocardiogram 12/20 revealed no signs of endocarditis. Preserved LV function. Trace MR/TR Echo 12/17 showed EF 60-65% Echo 12/21 EF 50%. Cannot rule out regional wall motion and ability Troponin currently 1.26 and downward trending Aspirin 81 mg p.o. daily FEN/Renal: Hypernatremia Monitor renal function Electrolytes replacement per protocol. Switch IV fluids to one quarter normal saline at 42 cc now. free water 100 cc every 4 hours GI: Elevated AST and alkaline phosphatase Hypoalbuminemia On tube feeds- Glucerna 1.5 @ 20ml/hr. with free water 100 cc every 6 hours. Nutrition recommends Jevity 1.5 at 55 cc Famotidine 20 mg twice daily GI prophylaxis Docusate sodium/senna 1 tablet twice daily for bowel regimen ID: MRSA Bacteremia Severe sepsis ABX per ID: Continue daptomycin 500 mg IV every 24 hours and ceftaroline 600 mg IV every 12 hours day #5 started 12/19 Started meropenem 1 g IV every 8 hours 12/21 day #3 JEANINE revealed no signs of endocarditis 12/20 12/15 [facility] from [facility]- MRSA 12/16 Bronch BAL- MRSA [facility] 12/16, 12/17 3: MRSA Blood culture 12/19 no growth 12/20 sputum/urine pending influenza, pneumococcal and Legionella antigens- Negative Heme: Leukocytosis Normocytic anemia Monitor CBC. 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 Needs brain imaging in future when stable Sliding scale insulin Accu-Cheks every 6 hours to maintain euglycemia/medium regimen Novulin R initiated 12/21. 8 units sliding scale insulin past 24 hours. Start insulin detemir 5 units subcu twice daily while on high-dose methylprednisolone succinate Low free T3 and T4 Patient on dopamine and steroids. Will influence results of thyroid testing. Started on levothyroxine 25 mcg daily with low T4. 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 Prophylaxis: GI Prophylaxis Famotidine IV DVT Prophylaxis -- SCDs -heparin SQ Lines: Left IJ CVL day #3 placed 3 Left radial arterial line day #3 placed 3 by respiratory therapy Critical Care: The total critical care time was 35 minutes. Time to perform other separately billable procedures was not included in the critical care time. Kashmir Lee MD Dec 23, 2017 10:16
[2017-12-23] MEDS: DAPTOmycin INJ 500 MG in SODIUM CHLORIDE 0.9% INJ 100 ML IV SCH (11:13)
[2017-12-23] MEDS: LACTULOSE SYRUP 20 GM/30 ML CUP PO SCH ×3 (11:13→19:41)
[2017-12-23] MEDS: CEFTAROLINE INJ 600 MG in SODIUM CHLORIDE 0.9% INJ 100 ML IV SCH ×2 (11:38→19:41)
--- NOTE | 2017-12-23 11:38 | HHI.IDPN ---
Note Infectious Disease Note ID coverage. Notes reviewed. 47-year-old female, who initially presented to the [facility] ED complaining of 4 day history of chest pain and shortness of breath. Chest x-ray showed bilateral patchy basilar infiltrates. CTA did not show any pulmonary embolism, showed bilateral infiltrates with some cavitary lesions noted. She was transferred to the main hospital, and she apparently had some blood in the sputum. She ended up getting intubated. Infectious disease consultation has been requested to evaluate the patient with pneumonia D/W RN Coded on 12/21. On dopamine now On the vent, remains on FiO2 at 70%. She had episode of asystole when she was placed prone on the Rotobed for chest x -ray. Her heart rhythm was restored when she was removed from prone position. All BC with MRSA 12/15-12/18 Blood culture from 12/20 and 12/21 still has MRSA. Sputum from 12/20 has gram-positive cocci. WBC decreased. JEANINE no vegetation Antibiotics Cubicin Teflaro Meropenem Current Medications Medications (Trade) Dose Ordered Sig/Marily Route PRN Reason Start Time Stop Time Status Last Admin Dose Admin Sodium Chloride (NS Flush) 2 ml UNSCH PRN IV FLUSH FLUSH AFTER USING IV ACCESS 12/15/17 22:30 Sodium Chloride (NS Flush) 2 ml BID IV FLUSH 12/16/17 09:00 12/23/17 09:45 Guaifenesin/ Dextromethorphan (Robitussin Dm 200-20 Mg/10 ml Liq) 10 ml Q4H PRN PO COUGH 12/15/17 22:30 Future Hold Heparin Sodium (Porcine) (Heparin Inj) 5,000 units Q8H SQ 12/16/17 12:00 12/23/17 11:13 Morphine Sulfate (Morphine Inj) 1 mg Q4H PRN IM PAIN SCALE 7 TO 10 12/16/17 09:15 Future Hold 12/16/17 10:11 Guaifenesin (Mucinex Er) 600 mg BID PO 12/16/17 09:15 Future Hold 12/16/17 10:51 Propofol 100 ml @ 2.1 mls/hr TITRATE PRN IV SEDATION 12/16/17 14:45 12/23/17 09:47 Fentanyl Citrate 250 ml @ 5 mls/hr TITRATE PRN IV SEDATION 12/16/17 16:30 12/23/17 02:37 Famotidine (Pepcid Inj) 20 mg Q12H IV PUSH 12/16/17 17:00 12/23/17 04:19 Miscellaneous Information 1 [id number] XX 12/16/17 16:45 Chlorhexidine Gluconate (Chlorhexidine 2% Cloth) Taper DAILY@04 TOP 12/17/17 04:00 12/13/18 03:59 12/23/17 04:00 Chlorhexidine Gluconate (Chlorhexidine 2% Cloth) 3 pack UNSCH PRN TOP HYGIENIC CARE 12/16/17 16:45 Magnesium Hydroxide (Milk Of Magnesia Liq) 30 ml Q12H PRN PO Mild constipation 12/16/17 16:45 Sennosides (Senokot) 17.2 mg Q12H PRN PO Moderate constipation 12/16/17 16:45 Bisacodyl (Dulcolax Supp) 10 mg DAILY PRN RECTAL SEVERE CONSITIPATION 12/16/17 16:45 Lactulose (Lactulose Liq) 30 ml DAILY PRN PO SEVERE CONSITIPATION 12/16/17 16:45 Chlorhexidine Gluconate (Peridex 0.12% Liq) 15 ml BID@08,20 MT 12/16/17 20:00 12/23/17 09:46 Midazolam HCl 100 ml @ 2 mls/hr TITRATE PRN IV SEDATION 12/16/17 17:30 12/23/17 05:53 Potassium Chloride 100 ml @ 50 mls/hr Q2H PRN IV For Potassium 2.8 - 3.2 mEq/L 12/17/17 07:45 Potassium Chloride 100 ml @ 50 mls/hr Q2H PRN IV For Potassium 2.8 - 3.2 mEq/L 12/17/17 07:45 Potassium Bicarb/ Potassium Chloride (K-Lyte Cl Eff) 50 meq UNSCH PRN PO For Potassium 3.3 - 3.5 mEq/L 12/17/17 07:45 Potassium Chloride 100 ml @ 25 mls/hr UNSCH PRN IV For Potassium 3.3 - 3.5 mEq/L 12/17/17 07:45 Potassium Chloride 100 ml @ 50 mls/hr Q2H PRN IV For Potassium 3.3 - 3.5 mEq/L 12/17/17 07:45 Magnesium Sulfate 4 gm/Sodium Chloride 100 ml @ 50 mls/hr UNSCH PRN IV For Magnesium 0.9 - 1.1 mg/dL 12/17/17 07:45 Magnesium Oxide (Mag-Ox) 800 mg UNSCH PRN PO For Magnesium 1.2 - 1.6 mg/dL 12/17/17 07:45 Magnesium Sulfate 2 gm/Sodium Chloride 100 ml @ 50 mls/hr UNSCH PRN IV For Magnesium 1.2 - 1.6 mg/dL 12/17/17 07:45 Potassium Phosphate (K-Phos) 2,000 mg Q4H PRN PO For Phosphorus < 2.5 mg/dL 12/17/17 07:45 12/17/17 23:49 Sodium Phosphate 30 mmol/Sodium Chloride 250 ml @ 42 mls/hr UNSCH PRN IV For Phosphorus < 2.5 mg/dL 12/17/17 07:45 12/18/17 08:40 Potassium Phosphate (K-Phos) 2,000 mg UNSCH PRN PO/TUBE SEE LABEL COMMENTS 12/17/17 07:45 Potassium Phosphate 30 mmol/ Sodium Chloride 260 ml @ 42 mls/hr UNSCH PRN IV SEE LABEL COMMENTS 12/17/17 07:45 12/19/17 07:57 Ceftaroline Fosamil 600 mg/ Sodium Chloride 100 ml @ 100 mls/hr Q12H IV 12/19/17 10:00 12/22/17 21:02 Daptomycin 500 mg/ Sodium Chloride 100 ml @ 200 mls/hr Q24H IV 12/19/17 12:00 12/23/17 11:13 Albuterol/ Ipratropium (Duoneb Neb) 1 ampule Q4HR NEB INH 12/20/17 12:00 12/23/17 07:48 Methylprednisolone Sodium Succinate (SoluMEDROL INJ) 60 mg Q8H IV PUSH 12/20/17 10:00 12/23/17 09:44 Dopamine HCl/ Dextrose 500 ml @ 0 mls/hr TITRATE PRN IV Blood Pressure Management 12/21/17 03:00 12/22/17 22:45 Terbutaline Sulfate (Brethine Inj) 1 mg UNSCH PRN SQ For Extravasation 12/21/17 03:00 Cisatracurium Besylate 100 mg/ Sodium Chloride 260 ml @ 11.62 mls/ hr TITRATE PRN IV TOF 1/4 12/21/17 08:30 12/23/17 06:38 Albuterol Sulfate (Albuterol Neb) 2.5 mg Q2HR NEB PRN NEB dyspnea 12/21/17 08:30 Budesonide (Pulmicort Respule Neb) 0.5 mg Q12HR NEB NEB 12/21/17 20:00 12/23/17 07:48 Sodium Chloride (NS Flush) DAILY IV FLUSH 12/22/17 09:00 Sodium Chloride (NS Flush) UNSCH PRN IV FLUSH SEE PROTOCOL 12/21/17 09:15 Mupirocin (Bactroban Nasal 2% Oint) 1 applic Taper BID EACH NARE 12/21/17 21:00 12/17/18 20:59 12/23/17 09:45 Artificial Tears (Lacrilube Opht Oint) 1 applic Q12HR EACH EYE 12/21/17 10:00 12/23/17 09:45 Dextrose (D50w (Vial) Inj) 50 ml UNSCH PRN IV PUSH HYPOGLYCEMIA-SEE COMMENTS 12/21/17 09:15 Glucagon (Glucagon Inj) 1 mg UNSCH PRN OTHER HYPOGLYCEMIA-SEE COMMENTS 12/21/17 09:15 Insulin Human Regular (NovoLIN R SUPPLEMENTAL SCALE) 1 Q6HR SQ 12/21/17 12:00 12/23/17 11:16 Meropenem 1000 mg/ Sodium Chloride 100 ml @ 200 mls/hr Q8H IV 12/21/17 11:00 12/23/17 10:09 Acetaminophen (Tylenol 650 Mg/ 20 ml Liq) 650 mg Q6H PRN NG fever 12/21/17 09:30 12/22/17 16:14 Epoprostenol Sodium 75 ml/ Sodium Chloride 100 ml @ 5 mls/hr Q8H NEB 12/21/17 10:00 12/23/17 10:09 Sotalol HCl (Betapace) 40 mg Q12HR PEG 12/21/17 21:00 12/22/17 20:03 Miscellaneous (Pill Splitter) 1 ea UNSCH PRN OTHER SEE LABEL COMMENTS 12/21/17 21:00 Sodium Chloride 38.5 meq/Sterile Water 1,009.625 ml @ 42 mls/hr Q24H IV 12/22/17 08:00 12/23/17 09:44 Aspirin (Aspirin Chew) 81 mg DAILY CHEW 12/22/17 09:00 12/23/17 09:46 Alteplase, Recombinant (Cathflo Activase Inj) 2 mg Q2H PRN INTRACATH occludded catheter 12/22/17 14:15 12/22/17 14:37 Levothyroxine Sodium (Synthroid) 25 mcg DAILY@0600 PO 12/23/17 06:00 12/23/17 05:52 Docusate Sodium (Colace Liq) 100 mg Q12HR NG 12/23/17 21:00 Sennosides (Senna Liq) 8.8 mg BID NG 12/23/17 21:00 Polyethylene Glycol (Miralax) 17 gm BID NG 12/23/17 21:00 Lactulose (Lactulose Liq) 30 ml QID PO 12/23/17 13:00 12/23/17 11:13 Insulin Detemir (Levemir Inj) 8 units Q12HR SQ 12/23/17 21:00 Lines [facility] - 12/21 Past Medical History Anxiety Past Surgical History Cholecystectomy Hysterectomy Allergies: Coded Allergies: No Known Allergies (Unverified , 12/15/17) Objective Vital Signs Date Time Temp Pulse Resp B/P (MAP) Pulse Ox O2 Delivery O2 Flow Rate FiO2 12/23/17 10:00 64 12/23/17 08:00 70 12/23/17 08:00 98.9 12/23/17 08:00 61 12/23/17 08:00 98.9 61 16 129/65 (86) 94 113/54 (73) 12/23/17 08:00 61 129/65 (86) 113/54 (73) 12/23/17 07:49 94 70 12/23/17 06:00 61 12/23/17 05:07 59 12/23/17 05:06 0 12/23/17 05:05 14 12/23/17 04:11 67 113/59 12/23/17 04:00 66 12/23/17 04:00 99.1 66 10 113/59 (77) 96 110/51 (70) 12/23/17 04:00 66 113/59 (77) 110/51 (70) 12/23/17 04:00 70 12/23/17 03:48 97 70 3/18/18 02:00 68 12/23/17 00:00 68 12/23/17 00:00 68 130/66 (87) 145/68 (93) 12/23/17 00:00 70 12/23/17 00:00 98.4 68 7 130/66 (87) 96 145/68 (93) 12/22/17 23:39 97 70 12/22/17 22:45 70 143/80 12/22/17 22:00 72 12/22/17 20:00 100.4 64 16 105/55 (72) 95 131/63 (85) 12/22/17 20:00 64 105/55 (72) 131/63 (85) 12/22/17 20:00 70 12/22/17 20:00 64 12/22/17 19:34 95 70 12/22/17 18:00 66 12/22/17 17:14 16 12/22/17 16:50 68 109/46 12/22/17 16:43 68 133/56 12/22/17 16:00 66 105/54 (71) 123/58 (79) 12/22/17 16:00 70 12/22/17 16:00 68 12/22/17 16:00 101.3 66 16 105/54 (71) 94 123/58 (79) 12/22/17 15:10 93 70 12/22/17 14:00 68 12/22/17 12:00 70 12/22/17 12:00 98.4 63 16 119/66 (83) 92 117/54 (75) 12/22/17 12:00 63 12/22/17 12:00 63 119/66 (83) 117/54 (75) 12/22/17 11:58 92 70 Laboratory Tests Test 12/22/17 04:20 12/23/17 04:00 White Blood Count 24.0 TH/MM3 19.5 TH/MM3 Red Blood Count 3.71 MIL/MM3 3.72 MIL/MM3 Hemoglobin 10.9 GM/DL 10.9 GM/DL Hematocrit 33.2 % 33.4 % Mean Corpuscular Volume 89.6 FL 89.6 FL Mean Corpuscular Hemoglobin 29.5 PG 29.2 PG Mean Corpuscular Hemoglobin Concent 32.9 % 32.6 % Red Cell Distribution Width 13.6 % 13.1 % Platelet Count 441 TH/MM3 410 TH/MM3 Mean Platelet Volume 7.8 FL 8.1 FL Neutrophils (%) (Auto) 93.7 % 92.9 % Lymphocytes (%) (Auto) 2.7 % 3.5 % Monocytes (%) (Auto) 3.3 % 3.5 % Eosinophils (%) (Auto) 0.0 % 0.0 % Basophils (%) (Auto) 0.3 % 0.1 % Neutrophils # (Auto) 22.5 TH/MM3 18.1 TH/MM3 Lymphocytes # (Auto) 0.7 TH/MM3 0.7 TH/MM3 Monocytes # (Auto) 0.8 TH/MM3 0.7 TH/MM3 Eosinophils # (Auto) 0.0 TH/MM3 0.0 TH/MM3 Basophils # (Auto) 0.1 TH/MM3 0.0 TH/MM3 CBC Comment AUTO DIFF AUTO DIFF Differential Total Cells Counted 100 100 Neutrophils % (Manual) 84 % 89 % Band Neutrophils % 8 % 1 % Lymphocytes % 2 % 3 % Monocytes % 3 % Neutrophils # (Manual) 22.8 TH/MM3 18.9 TH/MM3 Metamyelocytes 1 % 4 % Myelocytes 2 % 3 % Differential Comment FINAL DIFF MANUAL FINAL DIFF MANUAL Toxic Granulation 2+ 1+ Platelet Estimate HIGH NORMAL Platelet Morphology Comment NORMAL NORMAL Stomatocytes 1+ Red Cell Morphology Comment NORMAL Laboratory Tests Test 12/21/17 11:45 12/21/17 14:49 12/21/17 21:08 12/22/17 04:20 Lactic Acid Level 1.4 mmol/L 1.7 mmol/L Troponin I 3.18 NG/ML 3.37 NG/ML 1.95 NG/ML 1.26 NG/ML Human Chorionic Gonadotropin, Quant LESS THAN 1 MIU/ML Phosphorus Level 3.5 MG/DL 3.3 MG/DL Thyroid Stimulating Hormone 3rd Gen 0.012 uIU/ML Blood Urea Nitrogen 33 MG/DL Creatinine 0.94 MG/DL Random Glucose 234 MG/DL Total Protein 6.3 GM/DL Albumin 1.8 GM/DL Calcium Level 7.7 MG/DL Magnesium Level 2.4 MG/DL Alkaline Phosphatase 119 U/L Aspartate Amino Transf (AST/SGOT) 21 U/L Alanine Aminotransferase (ALT/SGPT) 27 U/L Total Bilirubin 0.4 MG/DL Sodium Level 149 MEQ/L Potassium Level 4.2 MEQ/L Chloride Level 114 MEQ/L Carbon Dioxide Level 29.7 MEQ/L Anion Gap 5 MEQ/L Estimat Glomerular Filtration Rate 64 ML/MIN Triglycerides Level 362 MG/DL Cholesterol Level 98 MG/DL LDL Cholesterol 13 MG/DL HDL Cholesterol 12.9 MG/DL Cholesterol/HDL Ratio 7.59 RATIO Free Thyroxine 0.58 NG/DL Free Triiodothyronine (T3) pg/dL 0.62 PG/ML Random Cortisol 26.7 MCG/DL Test 12/23/17 04:00 Blood Urea Nitrogen 33 MG/DL Creatinine 0.79 MG/DL Random Glucose 210 MG/DL Calcium Level 7.7 MG/DL Phosphorus Level 2.9 MG/DL Magnesium Level 2.3 MG/DL Sodium Level 146 MEQ/L Potassium Level 4.1 MEQ/L Chloride Level 110 MEQ/L Carbon Dioxide Level 27.6 MEQ/L Anion Gap 8 MEQ/L Estimat Glomerular Filtration Rate 78 ML/MIN Microbiology Date/Time Source Procedure Growth Status 12/22/17 14:25 Blood Line Aerobic Blood Culture - Preliminary NO GROWTH IN 1 DAY Resulted 12/22/17 14:25 Blood Line Anaerobic Blood Culture - Preliminary NO GROWTH IN 1 DAY Resulted 12/22/17 13:27 Blood Line Aerobic Blood Culture - Preliminary NO GROWTH IN 1 DAY Resulted 12/22/17 13:27 Blood Line Anaerobic Blood Culture - Preliminary NO GROWTH IN 1 DAY Resulted 12/21/17 11:00 Bronchial Washings Right Mid Lobe Fungal Smear - Final NO FUNGAL ELEMENTS SEEN. Resulted 12/21/17 11:00 Bronchial Washings Right Mid Lobe Fungal Culture Pending Resulted 12/21/17 11:00 Bronchial Washings Right Mid Lobe Acid Fast Stain Pending Worksheet 12/21/17 11:00 Bronchial Washings Right Mid Lobe Mycobacterial Culture Pending Worksheet 12/21/17 11:00 Bronchial Washings Right Mid Lobe Gram Stain - Final Complete 12/21/17 11:00 Bronchial Culture - Final S. Aureus Mrsa Complete 12/20/17 18:35 Sputum Endotracheal Gram Stain - Final Complete 12/20/17 18:35 Sputum Culture - Final S. Aureus Mrsa Complete 12/20/17 18:35 Urine Catheterized Urine Urine Culture - Final NO GROWTH IN 48 HOURS. Complete Microbiology Date/Time Source Procedure Growth Status 12/21/17 11:00 Bronchial Washings Right Mid Lobe Fungal Smear - Final NO FUNGAL ELEMENTS SEEN. Resulted 12/21/17 11:00 Bronchial Washings Right Mid Lobe Fungal Culture Pending Resulted 12/21/17 11:00 Bronchial Washings Right Mid Lobe Acid Fast Stain Pending Received 12/21/17 11:00 Bronchial Washings Right Mid Lobe Mycobacterial Culture Pending Received 12/21/17 11:00 Bronchial Washings Right Mid Lobe Gram Stain - Final Resulted 12/21/17 11:00 Bronchial Washings Right Mid Lobe Bronchial Culture Pending Resulted 12/20/17 18:35 Sputum Endotracheal Gram Stain - Final Resulted 12/20/17 18:35 Sputum Endotracheal Sputum Culture - Preliminary IMMATURE GROWTH - REINCUBATE Resulted 12/20/17 18:35 Urine Catheterized Urine Urine Culture - Final NO GROWTH IN 48 HOURS. Complete Imaging Chest X-Ray 12/22/17 0600 Signed Impressions: Service Date/Time: Friday, December 22, 2017 03:38 - CONCLUSION: Slight interval improvement in the bilateral pulmonary parenchymal infiltrates, particularly on the right. Jaylen Kendall MD Chest X-Ray 12/17/17 0600 Signed Impressions: Service Date/Time: Sunday, December 17, 2017 03:12 - CONCLUSION: Unchanged bilateral infiltrates. Yomi Shipley Jr., MD Chest X-Ray 12/16/17 0000 Signed Impressions: Service Date/Time: Saturday, December 16, 2017 16:35 - CONCLUSION: 1. No significant pneumothorax identified on plain film post bronchoscopy. Endotracheal tube and basilar airspace disease not significantly changed. Malachi Hardin MD Chest X-Ray 12/16/17 0000 Signed Impressions: Service Date/Time: Saturday, December 16, 2017 15:22 - CONCLUSION: 1. Endotracheal tube in good position. Extensive pneumomediastinum. Dense consolidation in the lungs. Malachi Hardin MD CT Angiography 12/16/17 0000 Signed Impressions: Service Date/Time: Saturday, December 16, 2017 13:49 - CONCLUSION: 1. Negative for pulmonary emboli. 2. Dense consolidation in the lungs especially the lung bases with several cavitary lesions as above. Findings are most characteristic of pneumonia. Cannot exclude septic embolic disease. No significant effusion. Malachi Hardin MD Physical Exam GENERAL: On the ventilator. Unresponsive. On rota prone bed. HEENT: Unable to fully assess. NECK: Supple without adenopathy. No swelling. LUNGS: Coarse bilateral rhonchi. Bilateral wheezing. HEART: Regular S1-S2. No audible murmurs or rubs or gallops. ABDOMEN: Obese, soft. No masses palpable. EXTREMITIES: No clubbing cyanosis or edema. SKIN: No rashes. NEUROLOGIC: Unresponsive. Unable to assess. PSYCH: Unresponsive. Unable to assess. IMPRESSION Sepsis present, high grade, on admission, MRSA on blood cultures - now with shock, S/P arrest. Bilateral pneumonia, some with cavitation - C/S with MRSA Very worrisome for endocarditis - clinically , but JEANINE negative Respiratory failure. worsening infiltrates, intubated. ?ARDS Patient is very critically ill. RECOMMENDATION Continue Cubicin until clearing of BC Continue Teflaro Continue meropenem for GNR coverage in the lung Monitor repeat blood cultures. Follow temps Monitor progress. Wood Landeros MD Dec 23, 2017 11:38
--- NOTE | 2017-12-23 15:10 | PD.CARD.PN ---
Subjective Subjective Remarks Intubated, sedated, no a fib, still with episodes of bradycardia Objective Medications Current Medications Medications (Trade) Dose Ordered Sig/Marily Route Start Time Stop Time Status Last Admin (NS Flush) 2 ml UNSCH PRN IV FLUSH 12/15/17 22:30 (NS Flush) 2 ml BID IV FLUSH 12/16/17 09:00 12/23/17 09:45 (Robitussin Dm 200-20 Mg/10 ml Liq) 10 ml Q4H PRN PO 12/15/17 22:30 Future Hold (Heparin Inj) 5,000 units Q8H SQ 12/16/17 12:00 12/23/17 11:13 (Morphine Inj) 1 mg Q4H PRN IM 12/16/17 09:15 Future Hold 12/16/17 10:11 (Mucinex Er) 600 mg BID PO 12/16/17 09:15 Future Hold 12/16/17 10:51 Propofol 100 ml @ 2.1 mls/hr TITRATE PRN IV 12/16/17 14:45 12/23/17 14:31 Fentanyl Citrate 250 ml @ 5 mls/hr TITRATE PRN IV 12/16/17 16:30 12/23/17 12:31 (Pepcid Inj) 20 mg Q12H IV PUSH 12/16/17 17:00 12/23/17 04:19 Miscellaneous Information 1 Q361D XX 12/16/17 16:45 (Chlorhexidine 2% Cloth) Taper DAILY@04 TOP 12/17/17 04:00 12/13/18 03:59 12/23/17 04:00 (Chlorhexidine 2% Cloth) 3 pack UNSCH PRN TOP 12/16/17 16:45 (Milk Of Magnesia Liq) 30 ml Q12H PRN PO 12/16/17 16:45 (Senokot) 17.2 mg Q12H PRN PO 12/16/17 16:45 (Dulcolax Supp) 10 mg DAILY PRN RECTAL 12/16/17 16:45 (Lactulose Liq) 30 ml DAILY PRN PO 12/16/17 16:45 (Peridex 0.12% Liq) 15 ml BID@08,20 MT 12/16/17 20:00 12/23/17 09:46 Midazolam HCl 100 ml @ 2 mls/hr TITRATE PRN IV 12/16/17 17:30 12/23/17 05:53 Potassium Chloride 100 ml @ 50 mls/hr Q2H PRN IV 12/17/17 07:45 Potassium Chloride 100 ml @ 50 mls/hr Q2H PRN IV 12/17/17 07:45 (K-Lyte Cl Eff) 50 meq UNSCH PRN PO 12/17/17 07:45 Potassium Chloride 100 ml @ 25 mls/hr UNSCH PRN IV 12/17/17 07:45 Potassium Chloride 100 ml @ 50 mls/hr Q2H PRN IV 12/17/17 07:45 Magnesium Sulfate 4 gm/Sodium Chloride 100 ml @ 50 mls/hr UNSCH PRN IV 12/17/17 07:45 (Mag-Ox) 800 mg UNSCH PRN PO 12/17/17 07:45 Magnesium Sulfate 2 gm/Sodium Chloride 100 ml @ 50 mls/hr UNSCH PRN IV 12/17/17 07:45 (K-Phos) 2,000 mg Q4H PRN PO 12/17/17 07:45 12/17/17 23:49 Sodium Phosphate 30 mmol/Sodium Chloride 250 ml @ 42 mls/hr UNSCH PRN IV 12/17/17 07:45 12/18/17 08:40 (K-Phos) 2,000 mg UNSCH PRN PO/TUBE 12/17/17 07:45 Potassium Phosphate 30 mmol/ Sodium Chloride 260 ml @ 42 mls/hr UNSCH PRN IV 12/17/17 07:45 12/19/17 07:57 Ceftaroline Fosamil 600 mg/ Sodium Chloride 100 ml @ 100 mls/hr Q12H IV 12/19/17 10:00 12/23/17 11:38 Daptomycin 500 mg/ Sodium Chloride 100 ml @ 200 mls/hr Q24H IV 12/19/17 12:00 12/23/17 11:13 (Duoneb Neb) 1 ampule Q4HR NEB INH 12/20/17 12:00 12/23/17 14:16 (SoluMEDROL INJ) 60 mg Q8H IV PUSH 12/20/17 10:00 12/23/17 09:44 Dopamine HCl/ Dextrose 500 ml @ 0 mls/hr TITRATE PRN IV 12/21/17 03:00 12/22/17 22:45 (Brethine Inj) 1 mg UNSCH PRN SQ 12/21/17 03:00 Cisatracurium Besylate 100 mg/ Sodium Chloride 260 ml @ 11.62 mls/ hr TITRATE PRN IV 12/21/17 08:30 12/23/17 12:24 (Albuterol Neb) 2.5 mg Q2HR NEB PRN NEB 12/21/17 08:30 (Pulmicort Respule Neb) 0.5 mg Q12HR NEB NEB 12/21/17 20:00 12/23/17 07:48 (NS Flush) DAILY IV FLUSH 12/22/17 09:00 (NS Flush) UNSCH PRN IV FLUSH 12/21/17 09:15 (Bactroban Nasal 2% Oint) 1 applic Taper BID EACH NARE 12/21/17 21:00 12/17/18 20:59 12/23/17 09:45 (Lacrilube Opht Oint) 1 applic Q12HR EACH EYE 12/21/17 10:00 12/23/17 09:45 (D50w (Vial) Inj) 50 ml UNSCH PRN IV PUSH 12/21/17 09:15 (Glucagon Inj) 1 mg UNSCH PRN OTHER 12/21/17 09:15 (NovoLIN R SUPPLEMENTAL SCALE) 1 Q6HR SQ 12/21/17 12:00 12/23/17 11:16 Meropenem 1000 mg/ Sodium Chloride 100 ml @ 200 mls/hr Q8H IV 12/21/17 11:00 12/23/17 10:09 (Tylenol 650 Mg/ 20 ml Liq) 650 mg Q6H PRN NG 12/21/17 09:30 12/22/17 16:14 Epoprostenol Sodium 75 ml/ Sodium Chloride 100 ml @ 5 mls/hr Q8H NEB 12/21/17 10:00 12/23/17 10:09 (Betapace) 40 mg Q12HR PEG 12/21/17 21:00 12/22/17 20:03 (Pill Splitter) 1 ea UNSCH PRN OTHER 12/21/17 21:00 Sodium Chloride 38.5 meq/Sterile Water 1,009.625 ml @ 42 mls/hr Q24H IV 12/22/17 08:00 12/23/17 09:44 (Aspirin Chew) 81 mg DAILY CHEW 12/22/17 09:00 12/23/17 09:46 (Cathflo Activase Inj) 2 mg Q2H PRN INTRACATH 12/22/17 14:15 12/22/17 14:37 (Synthroid) 25 mcg DAILY@0600 PO 12/23/17 06:00 12/23/17 05:52 (Colace Liq) 100 mg Q12HR NG 12/23/17 21:00 (Senna Liq) 8.8 mg BID NG 12/23/17 21:00 (Miralax) 17 gm BID NG 12/23/17 21:00 (Lactulose Liq) 30 ml QID PO 12/23/17 13:00 12/23/17 11:13 (Levemir Inj) 8 units Q12HR SQ 12/23/17 21:00 Vital Signs / I&O Vital Signs Date Time Temp Pulse Resp B/P (MAP) Pulse Ox O2 Delivery O2 Flow Rate FiO2 12/23/17 14:17 96 60 12/23/17 14:00 63 12/23/17 14:00 64 12/23/17 12:00 64 137/78 (97) 131/62 (85) 12/23/17 12:00 63 12/23/17 12:00 60 12/23/17 12:00 98.1 64 16 137/78 (97) 94 131/62 (85) 12/23/17 10:00 64 12/23/17 08:00 70 12/23/17 08:00 98.9 12/23/17 08:00 61 12/23/17 08:00 98.9 61 16 129/65 (86) 94 113/54 (73) 12/23/17 08:00 61 129/65 (86) 113/54 (73) 12/23/17 07:49 94 70 12/23/17 06:00 61 12/23/17 05:07 59 12/23/17 05:06 0 12/23/17 05:05 14 12/23/17 04:11 67 113/59 12/23/17 04:00 66 12/23/17 04:00 99.1 66 10 113/59 (77) 96 110/51 (70) 12/23/17 04:00 66 113/59 (77) 110/51 (70) 18 04:00 70 12/23/17 03:48 97 70 18 02:00 68 18 00:00 68 18 00:00 68 130/66 (87) 145/68 (93) 18 00:00 70 12/23/17 00:00 98.4 68 7 130/66 (87) 96 145/68 (93) 12/22/17 23:39 97 70 12/22/18 22:45 70 143/80 18 22:00 72 12/22/17 20:00 100.4 64 16 105/55 (72) 95 131/63 (85) 12/22/17 20:00 64 105/55 (72) 131/63 (85) 12/22/17 20:00 70 18 20:00 64 18 19:34 95 70 18 18:00 66 18 17:14 16 12/22/18 16:50 68 109/46 12/22/18 16:43 68 133/56 18 16:00 66 105/54 (71) 123/58 (79) 18 16:00 70 18 16:00 68 18 16:00 101.3 66 16 105/54 (71) 94 123/58 (79) 18 15:10 93 70 I/O 12/22/1712/22/18 12/22/18 18 12/23/17 12/23/17 07:00 15:00 23:00 07:00 15:00 23:00 Intake Total 1463 ml 418 ml 4339 ml 2306 ml Output Total 850 ml 800 ml 1450 ml 1060 ml Balance 613 ml -382 ml 2889 ml 1246 ml IV Total 1160 ml 418 ml 3901 ml 1810 ml Tube Feeding 103 ml 238 ml 196 ml Other 200 ml 200 ml 300 ml Output Urine Total 850 ml 800 ml 1450 ml 1050 ml Stool Total 10 ml # Bowel Movements 0 0 Physical Exam GENERAL: Intubated, sedated SKIN: Warm and dry. HEAD: Normocephalic. EYES: No scleral icterus. No injection or drainage. NECK: Supple, trachea midline. No JVD or lymphadenopathy. CARDIOVASCULAR: Regular rate and rhythm without murmurs, gallops, or rubs. RESPIRATORY: Breath sounds equal bilaterally. No accessory muscle use. Bilat diffuse rhonchi. GASTROINTESTINAL: Abdomen soft, non-tender, nondistended. MUSCULOSKELETAL: No cyanosis, or edema. Laboratory Laboratory Tests Test 12/23/17 04:00 White Blood Count 19.5 TH/MM3 Red Blood Count 3.72 MIL/MM3 Hemoglobin 10.9 GM/DL Hematocrit 33.4 % Mean Corpuscular Volume 89.6 FL Mean Corpuscular Hemoglobin 29.2 PG Mean Corpuscular Hemoglobin Concent 32.6 % Red Cell Distribution Width 13.1 % Platelet Count 410 TH/MM3 Mean Platelet Volume 8.1 FL Neutrophils (%) (Auto) 92.9 % Lymphocytes (%) (Auto) 3.5 % Monocytes (%) (Auto) 3.5 % Eosinophils (%) (Auto) 0.0 % Basophils (%) (Auto) 0.1 % Neutrophils # (Auto) 18.1 TH/MM3 Lymphocytes # (Auto) 0.7 TH/MM3 Monocytes # (Auto) 0.7 TH/MM3 Eosinophils # (Auto) 0.0 TH/MM3 Basophils # (Auto) 0.0 TH/MM3 CBC Comment AUTO DIFF Differential Total Cells Counted 100 Neutrophils % (Manual) 89 % Band Neutrophils % 1 % Lymphocytes % 3 % Neutrophils # (Manual) 18.9 TH/MM3 Metamyelocytes 4 % Myelocytes 3 % Differential Comment FINAL DIFF MANUAL Toxic Granulation 1+ Platelet Estimate NORMAL Platelet Morphology Comment NORMAL Red Cell Morphology Comment NORMAL Blood Urea Nitrogen 33 MG/DL Creatinine 0.79 MG/DL Random Glucose 210 MG/DL Calcium Level 7.7 MG/DL Phosphorus Level 2.9 MG/DL Magnesium Level 2.3 MG/DL Sodium Level 146 MEQ/L Potassium Level 4.1 MEQ/L Chloride Level 110 MEQ/L Carbon Dioxide Level 27.6 MEQ/L Anion Gap 8 MEQ/L Estimat Glomerular Filtration Rate 78 ML/MIN Imaging Last 24 hours Impressions Chest X-Ray 12/23/17 0600 Signed Impressions: Service Date/Time: Saturday, December 23, 2017 04:39 - CONCLUSION: 1. Bilateral persistent airspace disease with some improving aeration in the bases particularly on the right. 2. Stable position of life support tubes Jaylen Kendall MD Assessment and Plan Problem List: (1) Sepsis due to methicillin resistant Staphylococcus aureus (MRSA) ICD Codes: A41.02 - Sepsis due to Methicillin resistant Staphylococcus aureus (2) ARDS (adult respiratory distress syndrome) ICD Codes: J80 - Acute respiratory distress syndrome (3) Bilateral pneumonia ICD Codes: J18.9 - Pneumonia, unspecified organism Status: Acute (4) Acute hypoxemic respiratory failure ICD Codes: J96.01 - Acute respiratory failure with hypoxia (5) Paroxysmal atrial fibrillation ICD Codes: I48.0 - Paroxysmal atrial fibrillation (6) Bradycardia ICD Codes: R00.1 - Bradycardia, unspecified Assessment and Plan No new cardiac issues. Still has occasional episodes of bradycardia, likely respiratory related, possibly exacerbated by sotalol (started for a fib). Troponin elevated, but not trending in either direction. JEANINE with no evidence of endocarditis, LV fx preserved. Stays in SR on sotalol, no recurrent tachyarrhythmias, dose decreased, continue 40 mg BID since recently had AF w RVR. Continue tx for pneumonia/sepsis. Continue current program with ICU care and vent support. Valorie Bray MD Dec 23, 2017 15:10
[2017-12-23] MEDS: POLYETHYLENE GLYCOL 17 GM PKG NG SCH (19:40)
[2017-12-23] MEDS: SENNOSIDES SYRUP 8.8 MG/5 ML CUP NG SCH (19:40)
[2017-12-23] MEDS: DOCUSATE SODIUM 100 MG/10 ML UDC NG SCH (19:41)
[2017-12-24] VITALS (24 sets, daily range): BP systolic 80–147; BP diastolic 48–100; PULSE 51–72; RESP 0–16; TEMP 98.3–98.8; O2SAT 91–97
[2017-12-24] MEDS: fentaNYL DRIP 250 ML IV PRN ×3 (00:23→21:12)
[2017-12-24] MEDS: CISATRACURIUM INJ 100 MG in SODIUM CHLOR 0.9% 250 ML INJ 250 ML IV PRN ×4 (00:23→23:49)
[2017-12-24] MEDS: PROPOFOL 1000 MG/100 ML INJ 100 ML IV PRN ×5 (02:01→23:25)
[2017-12-24] MEDS: MIDAZOLAM 100 MG/100 ML INJ 100 ML IV PRN ×3 (02:01→21:13)
[2017-12-24] MEDS: methylPREDNISolone SOD SUCC 125 MG/2 ML VIAL IV PUSH SCH ×3 (02:02→17:03)
[2017-12-24] MEDS: MEROPENEM INJ 1,000 MG in SODIUM CHLORIDE 0.9% INJ 100 ML IV SCH ×3 (02:02→18:09)
[2017-12-24] MEDS: FAMOTIDINE 20 MG/2 ML VIAL IV PUSH SCH ×2 (04:03→17:02)
[2017-12-24] MEDS: HEPARIN SODIUM - SQ 10,000 UNITS/ML VIAL SQ SCH ×3 (04:04→20:08)
[2017-12-24] MEDS: LEVOTHYROXINE SODIUM 25 MCG TAB PO SCH (04:04)
[2017-12-24] MEDS: RESP: ALBUTEROL 2.5 MG/IPRATROPIUM 0.5 MG NEB (SCH) INH ×2 (04:41→08:26)
[2017-12-24] MEDS: INSULIN NovoLIN REGULAR SUPPLEMENTAL SCALE SQ SCH ×4 (05:41→23:36)
--- NOTE | 2017-12-24 06:50 | RADRPT ---
EXAM DATE/TIME: 12/24/2017 04:53 [facility] COMPARISON: CHEST SINGLE AP, December 23, 2017, 4:39. INDICATIONS : Shortness of breath, possible pulmonary disease. MEDICAL HISTORY : Sepsis. Pneumonia SURGICAL HISTORY : Cholecystectomy. Hysterectomy. ENCOUNTER: Subsequent ACUITY: 1 week PAIN SCORE: Non-responsive. LOCATION: Bilateral chest FINDINGS: ET tube tip above the level of the clavicles. Gastric tube traverses the [id number]. Left legal internship al jugular catheter tip in the proximal superior vena cava. Persistent consolidation in the right up per lobe and patchy areas of mixed interstitial and air space disease in the left lung. There is als o a new subsegmental area of consolidation lower left lung CONCLUSION: Persistent dense consolidation right upper lobe and a new small area of consolidation in the left low er lobe. Yomi Lopez MD on December 24, 2017 at 6:48 Board Certified Radiologist. This report was verified electronically.
[2017-12-24] MEDS: DOPamine 800 MG/500 ML INJ 500 ML IV PRN (07:30)
[2017-12-24] MEDS: ASPIRIN 81 MG CHEW TAB CHEW SCH (07:44)
[2017-12-24] MEDS: DOCUSATE SODIUM 100 MG/10 ML UDC NG SCH ×2 (07:44→20:07)
[2017-12-24] MEDS: LACTULOSE SYRUP 20 GM/30 ML CUP PO SCH ×4 (07:44→20:07)
[2017-12-24] MEDS: SENNOSIDES SYRUP 8.8 MG/5 ML CUP NG SCH ×2 (07:44→20:07)
[2017-12-24] MEDS: POLYETHYLENE GLYCOL 17 GM PKG NG SCH ×2 (07:44→20:07)
[2017-12-24] MEDS: MUPIROCIN 2% OINT 1 APPLIC/GM SYR EACH NARE SCH ×2 (07:44→20:08)
[2017-12-24] MEDS: INSULIN DETEMIR 100 UNITS/ML VIAL SQ SCH ×2 (07:45→20:10)
[2017-12-24] MEDS: CHLORHEXIDINE 0.12% (ORAL KIT) 15 ML CUP MT SCH ×2 (07:46→20:00)
[2017-12-24] MEDS: SODIUM CHLORIDE 0.9% FLUSH 10 ML FLUSH IV FLUSH SCH ×3 (07:46→20:10)
[2017-12-24 08:04] LABS: AUTOMATED NEUTROPHIL # 23.5 TH/MM3 (1.8-7.7); BASOPHIL % 0.1 % (0.0-2.0); HEMATOCRIT 35.5 % (35.0-46.0); HEMOGLOBIN 11.7 GM/DL (11.6-15.3); LYMPH % 3.9 % (9.0-44.0); MEAN CELL VOLUME 88.5 FL (80.0-100.0); MEAN CORPUSCULAR HEMOGLOBIN 29.3 PG (27.0-34.0); MEAN CORPUSCULAR HGB CONC 33.1 % (32.0-36.0); MEAN PLATELET VOLUME 8.1 FL (7.0-11.0); MONO % 3.3 % (0.0-8.0); MONOCYTE # 0.8 TH/MM3 (0-0.9); NEUT % 92.7 % (16.0-70.0); PLATELET COUNT 500 TH/MM3 (150-450); RED BLOOD COUNT 4.01 MIL/MM3 (4.00-5.30); RED CELL DISTRIBUTION WIDTH 12.9 % (11.6-17.2); WHITE BLOOD COUNT 25.3 TH/MM3 (4.0-11.0)
[2017-12-24] MEDS: RESP: BUDESONIDE 0.5 MG/2 ML NEB NEB SCH ×2 (08:26→19:44)
[2017-12-24 08:28] LABS: AST (GOT) 18 U/L (15-37); BICARBONATE 28.6 MEQ/L (21.0-32.0); BLOOD UREA NITROGEN 33 MG/DL (7-18); CALCIUM 7.5 MG/DL (8.5-10.1); CHLORIDE 109 MEQ/L (98-107); CREATININE 0.63 MG/DL (0.50-1.00); GLOMERULAR FILTRATION RATE 102 ML/MIN (>89); MAGNESIUM 2.4 MG/DL (1.5-2.5); SODIUM (NA) 145 MEQ/L (136-145)
[2017-12-24] MEDS: EPOPROSTENOL NEB SOLUTION 50 NG/KG/MIN 100 ML NEB SCH ×4 (08:29→22:08)
[2017-12-24 08:35] LABS: ALBUMIN 1.6 GM/DL (3.4-5.0); ALKALINE PHOSPHATASE 92 U/L (45-117); ALT (GPT) 16 U/L (10-53); GLUCOSE,RANDOM 150 MG/DL (74-106); PHOSPHORUS 3.1 MG/DL (2.5-4.9); TOTAL BILIRUBIN ADULT 0.3 MG/DL (0.2-1.0); TOTAL PROTEIN 5.8 GM/DL (6.4-8.2)
--- NOTE | 2017-12-24 08:35 | HHI.CCPN ---
Subjective Remarks/Hospital Course This is a 47-year-old female with a history of anxiety disorder, that presented to [place] on with complaints of chest pain and dyspnea that has been lasting for the past 4 days. The patient was transferred to [facility]. Imaging and laboratory studies were initially performed which showed a chest x-ray with bilateral patchy airspace consolidation consistent with bronchial pneumonia, and her lactic acid level was noted to be 3.1. The patient's oxygen requirements continue to increase the patient became tachypneic with a respiratory rate in the 40s and tachycardic, heart rate in the 120s. Pulmonology was consulted, CT was performed which revealed no pulmonary emboli , will several cavitary lesions, dense consolidation at both lung bases, air bronchograms and extensive pneumomediastinum extending into the lower neck and upper chest .ICU was requested to see patient. Upon observation the patient was severely dyspneic, with significant accessory muscle movement, violently coughing hemoptysis. Decision made to intubate patient for airway protection. 12/17 Patient is sedated with Diprivan and versed infusion. afebrile. s/p bronch yesterday by Dr. Klein. 12/18 Patient remains sedated with Versed 10mg/hr and Fentanyl 250 mics. Tmax 102.1 yesterday. + MRSA in bronch and GPC/MRSA from [facility] 12/15 from [place] 12/19: Patient developed respiratory distress and SVT this am with vent dyssynchrony with air trapping and elevated peak pressure. FiO2 increased to 100%, started on Nimbex infusion. Intermittently tachycardic, occasional bradycardia also. EKG shows sinus rhythm. Patient is very critical now. Will consult cardiology for JEANINE, and also regarding SVT. Chest x-ray shows worsening bilateral infiltrates concerning for ARDS 12/20: Remains intubated heavily sedated and neuromuscularly paralyzed to maintain ventilator synchrony and control peak pressures. Chest x-ray shows persistent bilateral infiltrates. JEANINE planned for today. All cultures so far positive for MRSA. Tachy Arrhythmia is better controlled after starting sotalol 12/21: CODE BLUE overnight when patient became bradycardic. Received epinephrine with chest compressions with return of spontaneous relief within 5 minutes according to RN. Currently on peripheral dopamine at 10 mcg/kg/min. FiO2 currently at 100%. Chest x-ray revealed worsening diffuse bilateral pulmonary infiltrates 12/22: T-max 101.1 Fahrenheit. Currently 98.9 Fahrenheit. +2493 cc past 24 hours. No bowel movement. Currently on roto-prone bed on epoprostenol at 50, 000 ng/kg/min aerosolized. On tube feeds Glucerna 1.5 at 20 cc an hour. Subjective 12/23: Overnight, when switching from supine to prone position patient 32nd episode of asystole resolved without chest compressions. We are currently patient has been prone position again with very slow with and without. Tolerating tube feeds now. Remains on cisatracurium drip at 4 mcg/min 12/24 Patient remains sedated and intubated. On Diprivan, Fentnayl, Versed in addition to Nimbex and Dopamine @5mics. Afebrile. Objective Vital Signs Date Time Temp Pulse Resp B/P (MAP) Pulse Ox O2 Delivery O2 Flow Rate FiO2 12/24/17 08:00 60 12/24/17 08:00 64 142/78 (99) 137/63 (87) 12/24/17 08:00 98.8 16 91 Intake and Output 12/24/17 12/24/17 12/25/17 08:00 16:00 00:00 Intake Total 2140 ml Output Total 1150 ml Balance 990 ml Result Diagram: 12/24/17 0530 12/23/17 0400 Other Results Laboratory Tests Test 12/23/17 15:18 12/24/17 05:30 12/24/17 06:14 Blood Gas Puncture Site ART LINE ART LINE Blood Gas Patient Temperature 98.6 98.6 Blood Gas HCO3 29 mmol/L 29 mmol/L Blood Gas Base Excess 4.4 mmol/L 4.3 mmol/L Blood Gas Oxygen Saturation 95 % 91 % Arterial Blood pH 7.43 7.39 Arterial Blood Partial Pressure CO2 44 mmHg 49 mmHg Arterial Blood Partial Pressure O2 92 mmHg 71 mmHg Arterial Blood Oxygen Content 14.4 Vol % 14.3 Vol % Arterial Blood Carboxyhemoglobin 0.5 % 0.6 % Arterial Blood Methemoglobin 1.3 % 1.3 % Blood Gas Hemoglobin 10.7 G/DL 11.2 G/DL Oxygen Delivery Device VENTILATOR VENTILATOR Blood Gas Ventilator Setting A/C 500/16/10PEEP AC16/500/10PEEP Blood Gas Inspired Oxygen 60 % 50 % White Blood Count 25.3 TH/MM3 Red Blood Count 4.01 MIL/MM3 Hemoglobin 11.7 GM/DL Hematocrit 35.5 % Mean Corpuscular Volume 88.5 FL Mean Corpuscular Hemoglobin 29.3 PG Mean Corpuscular Hemoglobin Concent 33.1 % Red Cell Distribution Width 12.9 % Platelet Count 500 TH/MM3 Mean Platelet Volume 8.1 FL Neutrophils (%) (Auto) 92.7 % Lymphocytes (%) (Auto) 3.9 % Monocytes (%) (Auto) 3.3 % Eosinophils (%) (Auto) 0.0 % Basophils (%) (Auto) 0.1 % Neutrophils # (Auto) 23.5 TH/MM3 Lymphocytes # (Auto) 1.0 TH/MM3 Monocytes # (Auto) 0.8 TH/MM3 Eosinophils # (Auto) 0.0 TH/MM3 Basophils # (Auto) 0.0 TH/MM3 CBC Comment AUTO DIFF Imaging Last Impressions Chest X-Ray 12/24/17 0600 Signed Impressions: Service Date/Time: Sunday, December 24, 2017 04:53 - CONCLUSION: Persistent dense consolidation right upper lobe and a new small area of consolidation in the left lower lobe. Yomi Lopez MD CT Angiography 12/16/17 0000 Signed Impressions: Service Date/Time: Saturday, December 16, 2017 13:49 - CONCLUSION: 1. Negative for pulmonary emboli. 2. Dense consolidation in the lungs especially the lung bases with several cavitary lesions as above. Findings are most characteristic of pneumonia. Cannot exclude septic embolic disease. No significant effusion. Malachi Hardin MD Objective Remarks GENERAL: 47-year-old female currently in roto-prone bed orotracheally intubated SKIN: Warm and dry. HEAD: Normocephalic. EYES: No scleral icterus. No injection or drainage. ENT: Orotracheally intubated NECK: Supple, trachea midline. Left IJ CVL is clean dry and intact CARDIOVASCULAR: Currently normal sinus rhythm. RRR. S1, S2 no strip without murmur RESPIRATORY: Breath sounds equal bilaterally. Bilateral coarse rhonchi and wheezes. GASTROINTESTINAL: Abdomen soft, non-tender, nondistended. MUSCULOSKELETAL: No significant peripheral edema Neuro: No gag. Pupils are reactive about 2 mm. No withdrawal to pain. 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 Patient at risk for CIM however extremely hypoxic with severe ARDS. UDS: + benzos, cannabinoids Acetaminophen 650 mg liquid by tube every 6 hours as needed fever Respiratory: Acute hypoxemic respiratory failure ARDS Small right Pneumothorax Pneumomediastinum Hemoptysis by history Pulmonary cavitary lesions ACV 16/500/10/40 Ventilator bundle Albuterol/ipratropium aerosols every 4 hours with albuterol aerosols every 2 hours as needed dyspnea Budesonide 0.5/2 1 inhalation twice daily Decrease Methylprednisolone succinate 40 mg IV every [address] Tejeda pulmonology following No spontaneous breathing trials or sedation medication due to neuromuscular paralysis and high O2 requirements 12/16 -CT Angio - extensive pneumomediastinum extending into neck and upper chest. Dense consolidation at both lung bases, air bronchograms , 2 cavitary lesions 12/16-bronchoscopy performed by Dr. Klein, no active sites noted for bleeding, moderate purulent mucus bilaterally noted 2 BAL samples sent CTS is following for Pneumomediastinum-per Dr. Guadarrama no intervention at this time. Cardiovascular: Paroxysmal atrial fibrillation SVT Probable infective endocarditis Status post CODE BLUE -likely respiratory induced Elevated troponin Wean off Dopamine now is at 5 mg/kg/min keep MAP>65mmHg on sotalol 40 mg twice daily by Dr. Bray 3 Monitor HR and BP keep MAP>65mmHg Transesophageal echocardiogram 3 revealed no signs of endocarditis. Preserved LV function. Trace MR/TR Echo 3 showed EF 60-65% Echo 3/ EF 50%. Cannot rule out regional wall motion and ability Troponin currently 1.26 and downward trending Aspirin 81 mg p.o. daily FEN/Renal: Hypernatremia Monitor renal function Electrolytes replacement per protocol. d/c IVF and diurese with Lasix 40mg Q12 GI: Elevated AST and alkaline phosphatase Hypoalbuminemia On tube feeds-change Glucerna to Jevity 1.5 with goal rate 55ml/hr per nut. recommendations. Famotidine 20 mg twice daily GI prophylaxis Docusate sodium/senna 1 tablet twice daily for bowel regimen ID: MRSA Bacteremia Severe sepsis ABX per ID: Continue daptomycin 500 mg IV every 24 hours and ceftaroline 600 mg IV every 12 hours day #5 started 3/ meropenem 1 g IV every 8 hours 3 day #3 JEANINE revealed no signs of endocarditis 12/20 12/15 [facility] from [place]- MRSA 12/16 Bronch BAL- MRSA [facility] 12/16, 3 3: MRSA Blood culture 12/19 no growth 12/20 sputum/urine pending influenza, pneumococcal and Legionella antigens- Negative Heme: Leukocytosis Normocytic anemia Monitor CBC. 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 Needs brain imaging in future when stable Sliding scale insulin Accu-Cheks every 6 hours to maintain euglycemia/medium regimen Novulin R initiated 12/21. , on insulin detemir 5 units subcu twice daily Low free T3 and T4 on levothyroxine 25 mcg daily with low T4. 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 Prophylaxis: GI Prophylaxis Famotidine IV DVT Prophylaxis -- SCDs -heparin SQ Lines: Left IJ CVL day #3 placed 3/ Left radial arterial line day #3 placed 3/16 by respiratory therapy Critical Care: The total critical care time was 30 minutes. Time to perform other separately billable procedures was not included in the critical care time. Problem Qualifiers (1) Sepsis: Qualified Codes: A41.9 - Sepsis, unspecified organism Crystal Magdaleno MD Dec 24, 2017 08:35
[2017-12-24 08:53] LABS: TOXIC GRANULATION 1+ (NORMAL)
[2017-12-24] MEDS: FUROSEMIDE 40 MG/4 ML VIAL IV PUSH SCH ×2 (09:32→17:02)
[2017-12-24] MEDS: CEFTAROLINE INJ 600 MG in SODIUM CHLORIDE 0.9% INJ 100 ML IV SCH ×2 (09:49→22:08)
[2017-12-24] MEDS: ARTIFICIAL TEARS OPTH OINT 3.5 APPLIC/3.5 GM TUBO EACH EYE SCH ×2 (11:10→20:08)
--- NOTE | 2017-12-24 11:13 | HHI.IDPN ---
Subjective Subjective Remarks Patient is a 47-year-old female, who initially presented to the [facility] ED complaining of 4 day history of chest pain and shortness of breath. In have any other history. She was apparently coughing and was bringing up some brownish phlegm. There was no mention of any fever or chills. No nausea or vomiting. No urinary complaints. Chest x-ray showed bilateral patchy basilar infiltrates. CTA did not show any pulmonary embolism, showed bilateral infiltrates with some cavitary lesions noted. She was transferred to the main hospital, and she apparently had some blood in the sputum. She ended up getting intubated. [facility] did bronchoscopy on her. Patient currently sedated postintubation. Her blood pressure is okay and she is not hypotensive. She is tachycardic. Infectious disease consultation has been requested to evaluate the patient with pneumonia Notes reviewed D/W RN On rotaprone bed On sedation and nimbex Also on dopamine Vent FiO2 60% Had brief asystole last night, no CPR needed All BC with MRSA 12/15-12/18 No new (+) BC Bronch C/S MRSA WBC rising Started on solumedrol 12/20 JEANINE no vegetation Antibiotics [facility] Annistonin [facility] Current Medications Medications (Trade) Dose Ordered Sig/Marily Route Start Time Stop Time Status Last Admin (NS Flush) 2 ml UNSCH PRN IV FLUSH 12/15/17 22:30 (NS Flush) 2 ml BID IV FLUSH 12/16/17 09:00 12/24/17 07:46 (Robitussin Dm 200-20 Mg/10 ml Liq) 10 ml Q4H PRN PO 12/15/17 22:30 Future Hold (Heparin Inj) 5,000 units Q8H SQ 12/16/17 12:00 12/24/17 04:04 (Morphine Inj) 1 mg Q4H PRN IM 12/16/17 09:15 Future Hold 12/16/17 10:11 (Mucinex Er) 600 mg BID PO 12/16/17 09:15 Future Hold 12/16/17 10:51 Propofol 100 ml @ 2.1 mls/hr TITRATE PRN IV 12/16/17 14:45 12/24/17 10:35 Fentanyl Citrate 250 ml @ 5 mls/hr TITRATE PRN IV 12/16/17 16:30 12/24/17 00:23 (Pepcid Inj) 20 mg Q12H IV PUSH 12/16/17 17:00 12/24/17 04:03 Miscellaneous Information 1 Q361D XX 12/16/17 16:45 (Chlorhexidine 2% Cloth) Taper DAILY@04 TOP 12/17/17 04:00 12/13/18 03:59 12/23/17 04:00 (Chlorhexidine 2% Cloth) 3 pack UNSCH PRN TOP 12/16/17 16:45 (Milk Of Magnesia Liq) 30 ml Q12H PRN PO 12/16/17 16:45 (Senokot) 17.2 mg Q12H PRN PO 12/16/17 16:45 (Dulcolax Supp) 10 mg DAILY PRN RECTAL 12/16/17 16:45 (Lactulose Liq) 30 ml DAILY PRN PO 12/16/17 16:45 (Peridex 0.12% Liq) 15 ml BID@08,20 MT 12/16/17 20:00 12/24/17 07:46 Midazolam HCl 100 ml @ 2 mls/hr TITRATE PRN IV 12/16/17 17:30 12/24/17 02:01 Potassium Chloride 100 ml @ 50 mls/hr Q2H PRN IV 12/17/17 07:45 Potassium Chloride 100 ml @ 50 mls/hr Q2H PRN IV 12/17/17 07:45 (K-Lyte Cl Eff) 50 meq UNSCH PRN PO 12/17/17 07:45 Potassium Chloride 100 ml @ 25 mls/hr UNSCH PRN IV 12/17/17 07:45 Potassium Chloride 100 ml @ 50 mls/hr Q2H PRN IV 12/17/17 07:45 Magnesium Sulfate 4 gm/Sodium Chloride 100 ml @ 50 mls/hr UNSCH PRN IV 12/17/17 07:45 (Mag-Ox) 800 mg UNSCH PRN PO 12/17/17 07:45 Magnesium Sulfate 2 gm/Sodium Chloride 100 ml @ 50 mls/hr UNSCH PRN IV 12/17/17 07:45 (K-Phos) 2,000 mg Q4H PRN PO 12/17/17 07:45 12/17/17 23:49 Sodium Phosphate 30 mmol/Sodium Chloride 250 ml @ 42 mls/hr UNSCH PRN IV 12/17/17 07:45 12/18/17 08:40 (K-Phos) 2,000 mg UNSCH PRN PO/TUBE 12/17/17 07:45 Potassium Phosphate 30 mmol/ Sodium Chloride 260 ml @ 42 mls/hr UNSCH PRN IV 12/17/17 07:45 12/19/17 07:57 Ceftaroline Fosamil 600 mg/ Sodium Chloride 100 ml @ 100 mls/hr Q12H IV 12/19/17 10:00 12/24/17 09:49 Daptomycin 500 mg/ Sodium Chloride 100 ml @ 200 mls/hr Q24H IV 12/19/17 12:00 12/23/17 11:13 (Duoneb Neb) 1 ampule Q4HR NEB INH 12/20/17 12:00 12/24/17 08:26 (SoluMEDROL INJ) 60 mg Q8H IV PUSH 12/20/17 10:00 12/24/17 10:00 Dopamine HCl/ Dextrose 500 ml @ 0 mls/hr TITRATE PRN IV 12/21/17 03:00 12/24/17 07:30 (Brethine Inj) 1 mg UNSCH PRN SQ 12/21/17 03:00 Cisatracurium Besylate 100 mg/ Sodium Chloride 260 ml @ 11.62 mls/ hr TITRATE PRN IV 12/21/17 08:30 12/24/17 06:10 (Albuterol Neb) 2.5 mg Q2HR NEB PRN NEB 12/21/17 08:30 (Pulmicort Respule Neb) 0.5 mg Q12HR NEB NEB 12/21/17 20:00 12/24/17 08:26 (NS Flush) DAILY IV FLUSH 12/22/17 09:00 12/24/17 07:46 (NS Flush) UNSCH PRN IV FLUSH 12/21/17 09:15 (Bactroban Nasal 2% Oint) 1 applic Taper BID EACH NARE 12/21/17 21:00 12/17/18 20:59 12/24/17 07:44 (Lacrilube Opht Oint) 1 applic Q12HR EACH EYE 12/21/17 10:00 12/23/17 19:42 (D50w (Vial) Inj) 50 ml UNSCH PRN IV PUSH 12/21/17 09:15 (Glucagon Inj) 1 mg UNSCH PRN OTHER 12/21/17 09:15 (NovoLIN R SUPPLEMENTAL SCALE) 1 Q6HR SQ 12/21/17 12:00 12/24/17 05:41 Meropenem 1000 mg/ Sodium Chloride 100 ml @ 200 mls/hr Q8H IV 12/21/17 11:00 12/24/17 10:59 (Tylenol 650 Mg/ 20 ml Liq) 650 mg Q6H PRN NG 12/21/17 09:30 12/22/17 16:14 Epoprostenol Sodium 75 ml/ Sodium Chloride 100 ml @ 5 mls/hr Q8H NEB 12/21/17 10:00 12/24/17 08:29 (Betapace) 40 mg Q12HR PEG 12/21/17 21:00 12/22/17 20:03 (Pill Splitter) 1 ea UNSCH PRN OTHER 12/21/17 21:00 (Aspirin Chew) 81 mg DAILY CHEW 12/22/17 09:00 12/24/17 07:44 (Cathflo Activase Inj) 2 mg Q2H PRN INTRACATH 12/22/17 14:15 12/22/17 14:37 (Synthroid) 25 mcg DAILY@0600 PO 12/23/17 06:00 12/24/17 04:04 (Colace Liq) 100 mg Q12HR NG 12/23/17 21:00 12/24/17 07:44 (Senna Liq) 8.8 mg BID NG 12/23/17 21:00 12/24/17 07:44 (Miralax) 17 gm BID NG 12/23/17 21:00 12/24/17 07:44 (Lactulose Liq) 30 ml QID PO 12/23/17 13:00 12/24/17 07:44 (Levemir Inj) 8 units Q12HR SQ 12/23/17 21:00 12/24/17 07:45 (Lasix Inj) 40 mg BID@,18 IV PUSH 12/24/17 09:00 12/24/17 09:32 Lines LIJ TLC - 12/21 Past Medical History Anxiety Past Surgical History Cholecystectomy Hysterectomy Allergies: Coded Allergies: No Known Allergies (Unverified , 12/15/17) Objective . Vital Signs Date Time Temp Pulse Resp B/P (MAP) Pulse Ox O2 Delivery O2 Flow Rate FiO2 12/24/17 11:00 63 12/24/17 11:00 63 1 128/63 (84) 91 12/24/17 10:00 67 12/24/17 10:00 67 0 117/65 (82) 92 107/54 (71) 12/24/17 09:00 72 12/24/17 09:00 72 16 122/54 (76) 91 12/24/17 08:26 91 60 12/24/17 08:00 60 12/24/17 08:00 64 142/78 (99) 137/63 (87) 12/24/17 08:00 68 12/24/17 08:00 68 110/53 (72) 111/56 (74) 12/24/17 08:00 98.8 68 16 110/53 (72) 91 111/56 (74) 12/24/17 07:30 62 106/51 12/24/17 07:00 61 12/24/17 07:00 61 16 114/56 (75) 92 12/24/17 06:00 62 12/24/17 04:39 92 50 12/24/17 04:00 127/72 (90) 12/24/17 04:00 50 12/24/17 04:00 59 12/24/17 04:00 98.5 59 16 127/72 (90) 92 127/59 (81) 12/24/17 02:00 57 12/24/17 00:00 64 12/24/17 00:00 60 12/24/17 00:00 98.3 64 136/75 (95) 94 132/60 (84) 12/24/17 00:00 64 136/75 (95) 132/60 (84) 12/23/17 23:42 96 50 12/23/17 22:00 64 12/23/17 20:00 64 12/23/17 20:00 99.0 64 142/78 (99) 94 137/63 (87) 18 20:00 60 12/23/17 20:00 64 142/78 (99) 137/63 (87) 12/23/17 19:36 93 50 12/23/17 18:00 62 12/23/17 16:30 68 91/40 3/18/18 16:00 67 122/60 (80) 119/61 (80) 12/23/17 16:00 99.1 67 16 122/60 (80) 96 119/61 (80) 12/23/17 16:00 60 12/23/17 16:00 68 12/23/17 14:17 96 60 12/23/17 14:00 63 12/23/17 14:00 64 12/23/17 12:00 64 137/78 (97) 131/62 (85) 12/23/17 12:00 63 12/23/17 12:00 60 12/23/17 12:00 98.1 64 16 137/78 (97) 94 131/62 (85) 12/24/17 12/24/17 12/25/17 15:00 23:00 07:00 Intake Total 1249 ml Balance 1249 ml IV Total 1249 ml . Laboratory Tests Test 12/23/17 04:00 12/24/17 05:30 White Blood Count 19.5 TH/MM3 25.3 TH/MM3 Red Blood Count 3.72 MIL/MM3 4.01 MIL/MM3 Hemoglobin 10.9 GM/DL 11.7 GM/DL Hematocrit 33.4 % 35.5 % Mean Corpuscular Volume 89.6 FL 88.5 FL Mean Corpuscular Hemoglobin 29.2 PG 29.3 PG Mean Corpuscular Hemoglobin Concent 32.6 % 33.1 % Red Cell Distribution Width 13.1 % 12.9 % Platelet Count 410 TH/MM3 500 TH/MM3 Mean Platelet Volume 8.1 FL 8.1 FL Neutrophils (%) (Auto) 92.9 % 92.7 % Lymphocytes (%) (Auto) 3.5 % 3.9 % Monocytes (%) (Auto) 3.5 % 3.3 % Eosinophils (%) (Auto) 0.0 % 0.0 % Basophils (%) (Auto) 0.1 % 0.1 % Neutrophils # (Auto) 18.1 TH/MM3 23.5 TH/MM3 Lymphocytes # (Auto) 0.7 TH/MM3 1.0 TH/MM3 Monocytes # (Auto) 0.7 TH/MM3 0.8 TH/MM3 Eosinophils # (Auto) 0.0 TH/MM3 0.0 TH/MM3 Basophils # (Auto) 0.0 TH/MM3 0.0 TH/MM3 CBC Comment AUTO DIFF AUTO DIFF Differential Total Cells Counted 100 Neutrophils % (Manual) 89 % Band Neutrophils % 1 % Lymphocytes % 3 % Neutrophils # (Manual) 18.9 TH/MM3 Metamyelocytes 4 % Myelocytes 3 % Differential Comment FINAL DIFF MANUAL AUTO DIFF CONFIRMED Toxic Granulation 1+ 1+ Platelet Estimate NORMAL HIGH Platelet Morphology Comment NORMAL NORMAL Red Cell Morphology Comment NORMAL Laboratory Tests Test 12/23/17 04:00 12/24/17 05:30 Blood Urea Nitrogen 33 MG/DL 33 MG/DL Creatinine 0.79 MG/DL 0.63 MG/DL Random Glucose 210 MG/DL 150 MG/DL Calcium Level 7.7 MG/DL 7.5 MG/DL Phosphorus Level 2.9 MG/DL 3.1 MG/DL Magnesium Level 2.3 MG/DL 2.4 MG/DL Sodium Level 146 MEQ/L 145 MEQ/L Potassium Level 4.1 MEQ/L 4.3 MEQ/L Chloride Level 110 MEQ/L 109 MEQ/L Carbon Dioxide Level 27.6 MEQ/L 28.6 MEQ/L Anion Gap 8 MEQ/L 7 MEQ/L Estimat Glomerular Filtration Rate 78 ML/MIN 102 ML/MIN Total Protein 5.8 GM/DL Albumin 1.6 GM/DL Alkaline Phosphatase 92 U/L Aspartate Amino Transf (AST/SGOT) 18 U/L Alanine Aminotransferase (ALT/SGPT) 16 U/L Total Bilirubin 0.3 MG/DL Microbiology Date/Time Source Procedure Growth Status 12/22/17 14:25 Blood Line Aerobic Blood Culture - Preliminary NO GROWTH IN 2 DAYS Resulted 12/22/17 14:25 Blood Line Anaerobic Blood Culture - Preliminary NO GROWTH IN 2 DAYS Resulted 12/22/17 13:27 Blood Line Aerobic Blood Culture - Preliminary NO GROWTH IN 2 DAYS Resulted 12/22/17 13:27 Blood Line Anaerobic Blood Culture - Preliminary NO GROWTH IN 2 DAYS Resulted Imaging Last Impressions Chest X-Ray 12/24/17 0600 Signed Impressions: Service Date/Time: Sunday, December 24, 2017 04:53 - CONCLUSION: Persistent dense consolidation right upper lobe and a new small area of consolidation in the left lower lobe. Yomi Lopez MD CT Angiography 12/16/17 0000 Signed Impressions: Service Date/Time: Saturday, December 16, 2017 13:49 - CONCLUSION: 1. Negative for pulmonary emboli. 2. Dense consolidation in the lungs especially the lung bases with several cavitary lesions as above. Findings are most characteristic of pneumonia. Cannot exclude septic embolic disease. No significant effusion. Malachi Hardin MD Chest X-Ray 12/17/17 0600 Signed Impressions: Service Date/Time: Sunday, December 17, 2017 03:12 - CONCLUSION: Unchanged bilateral infiltrates. Yomi Shipley Jr., MD Chest X-Ray 12/16/17 0000 Signed Impressions: Service Date/Time: Saturday, December 16, 2017 16:35 - CONCLUSION: 1. No significant pneumothorax identified on plain film post bronchoscopy. Endotracheal tube and basilar airspace disease not significantly changed. Malachi Hardin MD Chest X-Ray 12/16/17 0000 Signed Impressions: Service Date/Time: Saturday, December 16, 2017 15:22 - CONCLUSION: 1. Endotracheal tube in good position. Extensive pneumomediastinum. Dense consolidation in the lungs. Malachi Hardin MD CT Angiography 12/16/17 0000 Signed Impressions: Service Date/Time: Saturday, December 16, 2017 13:49 - CONCLUSION: 1. Negative for pulmonary emboli. 2. Dense consolidation in the lungs especially the lung bases with several cavitary lesions as above. Findings are most characteristic of pneumonia. Cannot exclude septic embolic disease. No significant effusion. Malachi Hardin MD Physical Exam GENERAL: Sedated, on paralytics, on rotaprone bed. SKIN: Warm and dry. No rash on the back. EYES: [place] conjunctiva. No petechia or hemorrhage. Pupils equal, round and reactive to light. No scleral icterus. No injection or drainage. EARS, NOSE AND THROAT: Nose without bleeding or purulent nasal discharge. She is orally intubated. NECK: Trachea midline. Supple and not tender, no meningeal signs CARDIOVASCULAR: Tachycardic RESPIRATORY: Diffuse rhonchi EXTREMITIES: has edema NEUROLOGICAL: Sedated, and on paralytics PSYCHIATRIC: Unable to assess LINE: No evidence of infection Assessment & Plan Remarks IMPRESSION Sepsis present, high grade, on admission, has MRSA on blood cultures - S/P arrest Bilateral pneumonia, some with cavitation - C/S with MRSA - CXR worse Very worrisome for endocarditis - clinically , but JEANINE negative Respiratory failure. worsening infiltrates, PNA, ?ARDS RECOMMENDATION Follow new cultures and adjust antibiotics Continue Cubicin until clearing of BC Continue Teflaro Stop Meropenem Follow temps Monitor progress Discussed with Liliam Ritchie MD Dec 24, 2017 11:13
[2017-12-24] MEDS: DAPTOmycin INJ 500 MG in SODIUM CHLORIDE 0.9% INJ 100 ML IV SCH (11:51)
[2017-12-24] MEDS: SOTALOL HCL 80 MG TAB PEG SCH ×2 (16:20→20:08)
--- NOTE | 2017-12-24 16:20 | HHI.PR ---
Subjective Remarks on the ventilator sedated Objective Vital Signs Date Time Temp Pulse Resp B/P (MAP) Pulse Ox O2 Delivery O2 Flow Rate FiO2 12/24/17 16:00 52 101/54 (70) 80/48 (59) 12/24/17 16:00 98.5 52 16 101/54 (70) 96 80/48 (59) 12/24/17 16:00 52 12/24/17 16:00 60 12/24/17 15:00 54 16 111/57 (75) 93 12/24/17 15:00 54 12/24/17 14:00 60 12/24/17 14:00 62 16 128/67 (87) 93 132/58 (82) 12/24/17 13:00 64 12/24/17 13:00 64 16 132/57 (82) 94 12/24/17 12:20 92 60 12/24/17 12:00 98.5 63 6 147/77 (100) 91 116/100 (105) 12/24/17 12:00 63 12/24/17 12:00 60 12/24/17 11:00 63 12/24/17 11:00 63 1 128/63 (84) 91 12/24/17 10:00 67 12/24/17 10:00 67 0 117/65 (82) 92 107/54 (71) 12/24/17 09:00 72 12/24/17 09:00 72 16 122/54 (76) 91 12/24/17 08:26 91 60 12/24/17 08:00 60 12/24/17 08:00 64 142/78 (99) 137/63 (87) 12/24/17 08:00 68 12/24/17 08:00 68 110/53 (72) 111/56 (74) 12/24/17 08:00 98.8 68 16 110/53 (72) 91 111/56 (74) 12/24/17 07:30 62 106/51 12/24/17 07:00 61 12/24/17 07:00 61 16 114/56 (75) 92 12/24/17 06:00 62 12/24/17 04:39 92 50 12/24/17 04:00 127/72 (90) 12/24/17 04:00 50 12/24/17 04:00 59 12/24/17 04:00 98.5 59 16 127/72 (90) 92 127/59 (81) 12/24/17 02:00 57 12/24/17 00:00 64 12/24/17 00:00 60 12/24/17 00:00 98.3 64 136/75 (95) 94 132/60 (84) 12/24/17 00:00 64 136/75 (95) 132/60 (84) 12/23/17 23:42 96 50 12/23/17 22:00 64 12/23/17 20:00 64 12/23/17 20:00 99.0 64 142/78 (99) 94 137/63 (87) 12/23/17 20:00 60 12/23/17 20:00 64 142/78 (99) 137/63 (87) 12/23/17 19:36 93 50 12/23/17 18:00 62 12/23/17 16:30 68 91/40 I/O 12/23/17 12/23/17 12/23/17 12/24/17 12/24/17 12/24/17 07:00 15:00 23:00 07:00 15:00 23:00 Intake Total 2306 ml 300 ml 2797 ml 1640 ml 1249 ml Output Total 1060 ml 1850 ml 1150 ml Balance 1246 ml 300 ml 947 ml 490 ml 1249 ml IV Total 1810 ml 300 ml 2403 ml 1150 ml 1249 ml Tube Feeding 196 ml 194 ml 190 ml Other 300 ml 200 ml 300 ml Output Urine Total 1050 ml 1200 ml 1000 ml Stool Total 10 ml 650 ml 150 ml Result Diagram: 12/24/17 0530 12/24/17 0530 Procedures BiPAP Objective Remarks GENERAL: sedated on vent support SKIN: Warm and dry. HEAD: Atraumatic. Normocephalic. EYES: Pupils equal and round. No scleral icterus. No injection or drainage. ENT: No nasal bleeding or discharge. Mucous membranes pink and moist. NECK: Trachea midline. No JVD. CARDIOVASCULAR: Regular rate and rhythm. RESPIRATORY: No accessory muscle use. Clear to auscultation. Breath sounds equal bilaterally. GASTROINTESTINAL: Abdomen soft, non-tender, nondistended. Hepatic and splenic margins not palpable. MUSCULOSKELETAL: Extremities without clubbing, cyanosis, or edema. No obvious deformities. NEUROLOGICAL: Awake and alert. No obvious cranial nerve deficits. Motor grossly within normal limits. Five out of 5 muscle strength in the arms and legs. Normal speech. PSYCHIATRIC: Appropriate mood and affect; insight and judgment normal. Assessment and Plan Assessment and Plan imp: respiratory failure/ARDS pna, plan vent support antibx pulm toilet wean as tolerated Ileana Tejeda MD Dec 24, 2017 16:20
--- NOTE | 2017-12-24 16:25 | PD.CARD.PN ---
Subjective Subjective Remarks Intubated, sedated, no a fib, episodes of mild sinus bradycardia Objective Medications Current Medications Medications (Trade) Dose Ordered Sig/Marily Route Start Time Stop Time Status Last Admin (NS Flush) 2 ml UNSCH PRN IV FLUSH 12/15/17 22:30 (NS Flush) 2 ml BID IV FLUSH 12/16/17 09:00 12/24/17 07:46 (Robitussin Dm 200-20 Mg/10 ml Liq) 10 ml Q4H PRN PO 12/15/17 22:30 Future Hold (Heparin Inj) 5,000 units Q8H SQ 12/16/17 12:00 12/24/17 11:52 (Morphine Inj) 1 mg Q4H PRN IM 12/16/17 09:15 Future Hold 12/16/17 10:11 (Mucinex Er) 600 mg BID PO 12/16/17 09:15 Future Hold 12/16/17 10:51 Propofol 100 ml @ 2.1 mls/hr TITRATE PRN IV 12/16/17 14:45 12/24/17 10:35 Fentanyl Citrate 250 ml @ 5 mls/hr TITRATE PRN IV 12/16/17 16:30 12/24/17 12:07 (Pepcid Inj) 20 mg Q12H IV PUSH 12/16/17 17:00 12/24/17 04:03 Miscellaneous Information 1 Q361D XX 12/16/17 16:45 (Chlorhexidine 2% Cloth) Taper DAILY@04 TOP 12/17/17 04:00 12/13/18 03:59 12/23/17 04:00 (Chlorhexidine 2% Cloth) 3 pack UNSCH PRN TOP 12/16/17 16:45 (Milk Of Magnesia Liq) 30 ml Q12H PRN PO 12/16/17 16:45 (Senokot) 17.2 mg Q12H PRN PO 12/16/17 16:45 (Dulcolax Supp) 10 mg DAILY PRN RECTAL 12/16/17 16:45 (Lactulose Liq) 30 ml DAILY PRN PO 12/16/17 16:45 (Peridex 0.12% Liq) 15 ml BID@08,20 MT 12/16/17 20:00 12/24/17 07:46 Midazolam HCl 100 ml @ 2 mls/hr TITRATE PRN IV 12/16/17 17:30 12/24/17 12:07 Potassium Chloride 100 ml @ 50 mls/hr Q2H PRN IV 12/17/17 07:45 Potassium Chloride 100 ml @ 50 mls/hr Q2H PRN IV 12/17/17 07:45 (K-Lyte Cl Eff) 50 meq UNSCH PRN PO 12/17/17 07:45 Potassium Chloride 100 ml @ 25 mls/hr UNSCH PRN IV 12/17/17 07:45 Potassium Chloride 100 ml @ 50 mls/hr Q2H PRN IV 12/17/17 07:45 Magnesium Sulfate 4 gm/Sodium Chloride 100 ml @ 50 mls/hr UNSCH PRN IV 12/17/17 07:45 (Mag-Ox) 800 mg UNSCH PRN PO 12/17/17 07:45 Magnesium Sulfate 2 gm/Sodium Chloride 100 ml @ 50 mls/hr UNSCH PRN IV 12/17/17 07:45 (K-Phos) 2,000 mg Q4H PRN PO 12/17/17 07:45 12/17/17 23:49 Sodium Phosphate 30 mmol/Sodium Chloride 250 ml @ 42 mls/hr UNSCH PRN IV 12/17/17 07:45 12/18/17 08:40 (K-Phos) 2,000 mg UNSCH PRN PO/TUBE 12/17/17 07:45 Potassium Phosphate 30 mmol/ Sodium Chloride 260 ml @ 42 mls/hr UNSCH PRN IV 12/17/17 07:45 12/19/17 07:57 Ceftaroline Fosamil 600 mg/ Sodium Chloride 100 ml @ 100 mls/hr Q12H IV 12/19/17 10:00 12/24/17 09:49 Daptomycin 500 mg/ Sodium Chloride 100 ml @ 200 mls/hr Q24H IV 12/19/17 12:00 12/24/17 11:51 (SoluMEDROL INJ) 60 mg Q8H IV PUSH 12/20/17 10:00 12/24/17 10:00 Dopamine HCl/ Dextrose 500 ml @ 0 mls/hr TITRATE PRN IV 12/21/17 03:00 12/24/17 07:30 (Brethine Inj) 1 mg UNSCH PRN SQ 12/21/17 03:00 Cisatracurium Besylate 100 mg/ Sodium Chloride 260 ml @ 11.62 mls/ hr TITRATE PRN IV 12/21/17 08:30 12/24/17 06:10 (Albuterol Neb) 2.5 mg Q2HR NEB PRN NEB 12/21/17 08:30 (Pulmicort Respule Neb) 0.5 mg Q12HR NEB NEB 12/21/17 20:00 12/24/17 08:26 (NS Flush) DAILY IV FLUSH 12/22/17 09:00 12/24/17 07:46 (NS Flush) UNSCH PRN IV FLUSH 12/21/17 09:15 (Bactroban Nasal 2% Oint) 1 applic Taper BID EACH NARE 12/21/17 21:00 12/17/18 20:59 12/24/17 07:44 (Lacrilube Opht Oint) 1 applic Q12HR EACH EYE 12/21/17 10:00 12/24/17 11:10 (D50w (Vial) Inj) 50 ml UNSCH PRN IV PUSH 12/21/17 09:15 (Glucagon Inj) 1 mg UNSCH PRN OTHER 12/21/17 09:15 (NovoLIN R SUPPLEMENTAL SCALE) 1 Q6HR SQ 12/21/17 12:00 12/24/17 11:52 Meropenem 1000 mg/ Sodium Chloride 100 ml @ 200 mls/hr Q8H IV 12/21/17 11:00 12/24/17 10:59 (Tylenol 650 Mg/ 20 ml Liq) 650 mg Q6H PRN NG 12/21/17 09:30 12/22/17 16:14 Epoprostenol Sodium 75 ml/ Sodium Chloride 100 ml @ 5 mls/hr Q8H NEB 12/21/17 10:00 12/24/17 08:29 (Betapace) 40 mg Q12HR PEG 12/21/17 21:00 12/22/17 20:03 (Pill Splitter) 1 ea UNSCH PRN OTHER 12/21/17 21:00 (Aspirin Chew) 81 mg DAILY CHEW 12/22/17 09:00 12/24/17 07:44 (Cathflo Activase Inj) 2 mg Q2H PRN INTRACATH 12/22/17 14:15 12/22/17 14:37 (Synthroid) 25 mcg DAILY@0600 PO 12/23/17 06:00 12/24/17 04:04 (Colace Liq) 100 mg Q12HR NG 12/23/17 21:00 12/24/17 07:44 (Senna Liq) 8.8 mg BID NG 12/23/17 21:00 12/24/17 07:44 (Miralax) 17 gm BID NG 12/23/17 21:00 12/24/17 07:44 (Lactulose Liq) 30 ml QID PO 12/23/17 13:00 12/24/17 11:51 (Levemir Inj) 8 units Q12HR SQ 12/23/17 21:00 12/24/17 07:45 (Lasix Inj) 40 mg BID@ IV PUSH 12/24/17 09:00 12/24/17 09:32 Vital Signs / I&O Vital Signs Date Time Temp Pulse Resp B/P (MAP) Pulse Ox O2 Delivery O2 Flow Rate FiO2 12/24/17 16:00 52 101/54 (70) 80/48 (59) 12/24/17 16:00 98.5 52 16 101/54 (70) 96 80/48 (59) 12/24/17 16:00 52 12/24/17 16:00 60 12/24/17 15:00 54 16 111/57 (75) 93 12/24/17 15:00 54 12/24/17 14:00 60 12/24/17 14:00 62 16 128/67 (87) 93 132/58 (82) 12/24/17 13:00 64 12/24/17 13:00 64 16 132/57 (82) 94 12/24/17 12:20 92 60 12/24/17 12:00 98.5 63 6 147/77 (100) 91 116/100 (105) 12/24/17 12:00 63 12/24/17 12:00 60 12/24/17 11:00 63 12/24/17 11:00 63 1 128/63 (84) 91 12/24/17 10:00 67 12/24/17 10:00 67 0 117/65 (82) 92 107/54 (71) 12/24/17 09:00 72 12/24/17 09:00 72 16 122/54 (76) 91 18 08:26 91 60 18 08:00 60 12/24/17 08:00 64 142/78 (99) 137/63 (87) 18 08:00 68 18 08:00 68 110/53 (72) 111/56 (74) 12/24/17 08:00 98.8 68 16 110/53 (72) 91 111/56 (74) 12/24/17 07:30 62 106/51 18 07:00 61 12/24/17 07:00 61 16 114/56 (75) 92 12/24/17 06:00 62 12/24/17 04:39 92 50 12/24/17 04:00 127/72 (90) 12/24/17 04:00 50 12/24/17 04:00 59 12/24/17 04:00 98.5 59 16 127/72 (90) 92 127/59 (81) 12/24/17 02:00 57 12/24/17 00:00 64 12/24/17 00:00 60 12/24/17 00:00 98.3 64 136/75 (95) 94 132/60 (84) 18 00:00 64 136/75 (95) 132/60 (84) 18 23:42 96 50 12/23/18 22:00 64 18 20:00 64 18 20:00 99.0 64 142/78 (99) 94 137/63 (87) 18 20:00 60 18 20:00 64 142/78 (99) 137/63 (87) 18 19:36 93 50 12/23/18 18:00 62 12/23/18 16:30 68 91/40 I/O 18/18 3/18/18 3/18/18 3/18 12/24/18 12/24/ 07:00 15:00 23:00 07:00 15:00 23:00 Intake Total 2306 ml 300 ml 2797 ml 1640 ml 1249 ml Output Total 1060 ml 1850 ml 1150 ml Balance 1246 ml 300 ml 947 ml 490 ml 1249 ml IV Total 1810 ml 300 ml 2403 ml 1150 ml 1249 ml Tube Feeding 196 ml 194 ml 190 ml Other 300 ml 200 ml 300 ml Output Urine Total 1050 ml 1200 ml 1000 ml Stool Total 10 ml 650 ml 150 ml Physical Exam GENERAL: Intubated, sedated, in Rotoprone SKIN: Warm and dry. HEAD: Normocephalic. EYES: No scleral icterus. No injection or drainage. NECK: Supple, trachea midline. No JVD or lymphadenopathy. CARDIOVASCULAR: Regular rate and rhythm without murmurs, gallops, or rubs. RESPIRATORY: Breath sounds equal bilaterally. No accessory muscle use. Bilat diffuse rhonchi. GASTROINTESTINAL: Abdomen soft, non-tender, nondistended. MUSCULOSKELETAL: No cyanosis, mild edema. Laboratory Laboratory Tests Test 12/24/17 05:30 12/24/17 06:14 White Blood Count 25.3 TH/MM3 Red Blood Count 4.01 MIL/MM3 Hemoglobin 11.7 GM/DL Hematocrit 35.5 % Mean Corpuscular Volume 88.5 FL Mean Corpuscular Hemoglobin 29.3 PG Mean Corpuscular Hemoglobin Concent 33.1 % Red Cell Distribution Width 12.9 % Platelet Count 500 TH/MM3 Mean Platelet Volume 8.1 FL Neutrophils (%) (Auto) 92.7 % Lymphocytes (%) (Auto) 3.9 % Monocytes (%) (Auto) 3.3 % Eosinophils (%) (Auto) 0.0 % Basophils (%) (Auto) 0.1 % Neutrophils # (Auto) 23.5 TH/MM3 Lymphocytes # (Auto) 1.0 TH/MM3 Monocytes # (Auto) 0.8 TH/MM3 Eosinophils # (Auto) 0.0 TH/MM3 Basophils # (Auto) 0.0 TH/MM3 CBC Comment AUTO DIFF Differential Comment AUTO DIFF CONFIRMED Toxic Granulation 1+ Platelet Estimate HIGH Platelet Morphology Comment NORMAL Blood Urea Nitrogen 33 MG/DL Creatinine 0.63 MG/DL Random Glucose 150 MG/DL Total Protein 5.8 GM/DL Albumin 1.6 GM/DL Calcium Level 7.5 MG/DL Phosphorus Level 3.1 MG/DL Magnesium Level 2.4 MG/DL Alkaline Phosphatase 92 U/L Aspartate Amino Transf (AST/SGOT) 18 U/L Alanine Aminotransferase (ALT/SGPT) 16 U/L Total Bilirubin 0.3 MG/DL Sodium Level 145 MEQ/L Potassium Level 4.3 MEQ/L Chloride Level 109 MEQ/L Carbon Dioxide Level 28.6 MEQ/L Anion Gap 7 MEQ/L Estimat Glomerular Filtration Rate 102 ML/MIN Blood Gas Puncture Site ART LINE Blood Gas Patient Temperature 98.6 Blood Gas HCO3 29 mmol/L Blood Gas Base Excess 4.3 mmol/L Blood Gas Oxygen Saturation 91 % Arterial Blood pH 7.39 Arterial Blood Partial Pressure CO2 49 mmHg Arterial Blood Partial Pressure O2 71 mmHg Arterial Blood Oxygen Content 14.3 Vol % Arterial Blood Carboxyhemoglobin 0.6 % Arterial Blood Methemoglobin 1.3 % Blood Gas Hemoglobin 11.2 G/DL Oxygen Delivery Device VENTILATOR Blood Gas Ventilator Setting AC16/500/10PEEP Blood Gas Inspired Oxygen 50 % Imaging Last 24 hours Impressions Chest X-Ray 12/24/17 0600 Signed Impressions: Service Date/Time: Sunday, December 24, 2017 04:53 - CONCLUSION: Persistent dense consolidation right upper lobe and a new small area of consolidation in the left lower lobe. Yomi Lopez MD Assessment and Plan Problem List: (1) Sepsis due to methicillin resistant Staphylococcus aureus (MRSA) ICD Codes: A41.02 - Sepsis due to Methicillin resistant Staphylococcus aureus (2) ARDS (adult respiratory distress syndrome) ICD Codes: J80 - Acute respiratory distress syndrome (3) Bilateral pneumonia ICD Codes: J18.9 - Pneumonia, unspecified organism Status: Acute (4) Acute hypoxemic respiratory failure ICD Codes: J96.01 - Acute respiratory failure with hypoxia (5) Paroxysmal atrial fibrillation ICD Codes: I48.0 - Paroxysmal atrial fibrillation (6) Bradycardia ICD Codes: R00.1 - Bradycardia, unspecified Assessment and Plan Stays in SR, no recurrent AF. Still has occasional episodes of bradycardia, likely respiratory related, possibly exacerbated by sotalol (started for a fib) . Troponin elevated, but not trending in either direction. JEANINE with no evidence of endocarditis, LV fx preserved. Stays in SR on sotalol, no recurrent tachyarrhythmias, dose decreased, continue 40 mg BID since recently had AF w RVR. Continue sotalol unless significantly bradycardic (HR below 50bpm). Continue tx for pneumonia/sepsis. Continue current program with ICU care and vent support. Slow progress weaning. Valorie Bray MD Dec 24, 2017 16:25
[2017-12-24] MEDS: RESP: ALBUTEROL 2.5 MG/3 ML NEB (PRN) NEB (19:44)
[2017-12-24] MEDS: METOCLOPRAMIDE HCL 10 MG/2 ML VIAL IV PUSH PRN (20:08)
[2017-12-25] VITALS (24 sets, daily range): BP systolic 97–163; BP diastolic 49–86; PULSE 56–68; RESP 8–17; TEMP 97.5–99.7; O2SAT 93–98
[2017-12-25] MEDS: methylPREDNISolone SOD SUCC 125 MG/2 ML VIAL IV PUSH SCH (02:33)
[2017-12-25] MEDS: MEROPENEM INJ 1,000 MG in SODIUM CHLORIDE 0.9% INJ 100 ML IV SCH (02:33)
[2017-12-25] MEDS: PROPOFOL 1000 MG/100 ML INJ 100 ML IV PRN ×5 (03:10→20:52)
[2017-12-25] MEDS: HEPARIN SODIUM - SQ 10,000 UNITS/ML VIAL SQ SCH ×3 (03:10→20:53)
[2017-12-25] MEDS: CHLORHEXIDINE GLUCONATE 2 % 1 PACK (2 CLOTHS) TOP SCH (03:10)
[2017-12-25 04:14] LABS: AUTOMATED NEUTROPHIL # 23.3 TH/MM3 (1.8-7.7); BASOPHIL % 0.1 % (0.0-2.0); HEMATOCRIT 35.6 % (35.0-46.0); LYMPH % 3.6 % (9.0-44.0); LYMPHOCYTE # 0.9 TH/MM3 (1.0-4.8); MEAN CELL VOLUME 87.4 FL (80.0-100.0); MEAN CORPUSCULAR HEMOGLOBIN 29.5 PG (27.0-34.0); MEAN CORPUSCULAR HGB CONC 33.8 % (32.0-36.0); MEAN PLATELET VOLUME 8.2 FL (7.0-11.0); MONO % 2.8 % (0.0-8.0); MONOCYTE # 0.7 TH/MM3 (0-0.9); NEUT % 93.5 % (16.0-70.0); PLATELET COUNT 447 TH/MM3 (150-450); RED BLOOD COUNT 4.07 MIL/MM3 (4.00-5.30); RED CELL DISTRIBUTION WIDTH 12.6 % (11.6-17.2); WHITE BLOOD COUNT 24.9 TH/MM3 (4.0-11.0)
[2017-12-25] MEDS: FAMOTIDINE 20 MG/2 ML VIAL IV PUSH SCH ×2 (04:40→17:18)
[2017-12-25 04:43] LABS: BICARBONATE 30.7 MEQ/L (21.0-32.0); CALCIUM 7.4 MG/DL (8.5-10.1); CREATININE 0.64 MG/DL (0.50-1.00); MAGNESIUM 2.3 MG/DL (1.5-2.5); PHOSPHORUS 3.3 MG/DL (2.5-4.9)
[2017-12-25] MEDS: INSULIN NovoLIN REGULAR SUPPLEMENTAL SCALE SQ SCH ×4 (05:00→23:54)
[2017-12-25] MEDS: LEVOTHYROXINE SODIUM 25 MCG TAB PO SCH (05:00)
[2017-12-25 05:08] LABS: CALCIUM-PROTEIN CORRECTED 8.2 MG/DL (8.5-10.1); TOTAL PROTEIN 5.7 GM/DL (6.4-8.2)
[2017-12-25] MEDS: CISATRACURIUM INJ 100 MG in SODIUM CHLOR 0.9% 250 ML INJ 250 ML IV PRN ×4 (05:34→22:45)
[2017-12-25] MEDS: MIDAZOLAM 100 MG/100 ML INJ 100 ML IV PRN ×2 (06:17→17:55)
[2017-12-25] MEDS: fentaNYL DRIP 250 ML IV PRN ×2 (06:17→16:36)
[2017-12-25] MEDS: LACTULOSE SYRUP 20 GM/30 ML CUP PO SCH ×4 (07:53→20:53)
[2017-12-25] MEDS: SENNOSIDES SYRUP 8.8 MG/5 ML CUP NG SCH ×2 (07:53→20:53)
[2017-12-25] MEDS: MUPIROCIN 2% OINT 1 APPLIC/GM SYR EACH NARE SCH ×2 (07:54→20:54)
[2017-12-25] MEDS: ASPIRIN 81 MG CHEW TAB CHEW SCH (07:54)
[2017-12-25] MEDS: FUROSEMIDE 40 MG/4 ML VIAL IV PUSH SCH ×2 (07:54→17:19)
[2017-12-25] MEDS: SOTALOL HCL 80 MG TAB PEG SCH ×2 (07:54→20:54)
[2017-12-25] MEDS: ARTIFICIAL TEARS OPTH OINT 3.5 APPLIC/3.5 GM TUBO EACH EYE SCH ×2 (07:55→20:54)
[2017-12-25] MEDS: INSULIN DETEMIR 100 UNITS/ML VIAL SQ SCH ×2 (07:55→20:54)
[2017-12-25] MEDS: POLYETHYLENE GLYCOL 17 GM PKG NG SCH ×2 (07:55→20:53)
[2017-12-25] MEDS: SODIUM CHLORIDE 0.9% FLUSH 10 ML FLUSH IV FLUSH SCH ×3 (07:55→20:54)
[2017-12-25] MEDS: DOCUSATE SODIUM 100 MG/10 ML UDC NG SCH ×2 (07:55→20:53)
[2017-12-25] MEDS: CHLORHEXIDINE 0.12% (ORAL KIT) 15 ML CUP MT SCH ×2 (07:56→20:53)
--- NOTE | 2017-12-25 08:18 | HHI.CCPN ---
Subjective Remarks/Hospital Course This is a 47-year-old female with a history of anxiety disorder, that presented to [place] on with complaints of chest pain and dyspnea that has been lasting for the past 4 days. The patient was transferred to [facility]. Imaging and laboratory studies were initially performed which showed a chest x-ray with bilateral patchy airspace consolidation consistent with bronchial pneumonia, and her lactic acid level was noted to be 3.1. The patient's oxygen requirements continue to increase the patient became tachypneic with a respiratory rate in the 40s and tachycardic, heart rate in the 120s. Pulmonology was consulted, CT was performed which revealed no pulmonary emboli , will several cavitary lesions, dense consolidation at both lung bases, air bronchograms and extensive pneumomediastinum extending into the lower neck and upper chest .ICU was requested to see patient. Upon observation the patient was severely dyspneic, with significant accessory muscle movement, violently coughing hemoptysis. Decision made to intubate patient for airway protection. 12/17 Patient is sedated with Diprivan and versed infusion. afebrile. s/p bronch yesterday by Dr. Klien. 12/18 Patient remains sedated with Versed 10mg/hr and Fentanyl 250 mics. Tmax 102.1 yesterday. + MRSA in bronch and GPC/MRSA from [facility] 12/15 from [place] 12/19: Patient developed respiratory distress and SVT this am with vent dyssynchrony with air trapping and elevated peak pressure. FiO2 increased to 100%, started on Nimbex infusion. Intermittently tachycardic, occasional bradycardia also. EKG shows sinus rhythm. Patient is very critical now. Will consult cardiology for JEANINE, and also regarding SVT. Chest x-ray shows worsening bilateral infiltrates concerning for ARDS 12/20: Remains intubated heavily sedated and neuromuscularly paralyzed to maintain ventilator synchrony and control peak pressures. Chest x-ray shows persistent bilateral infiltrates. JEANINE planned for today. All cultures so far positive for MRSA. Tachy Arrhythmia is better controlled after starting sotalol 12/21: CODE BLUE overnight when patient became bradycardic. Received epinephrine with chest compressions with return of spontaneous relief within 5 minutes according to RN. Currently on peripheral dopamine at 10 mcg/kg/min. FiO2 currently at 100%. Chest x-ray revealed worsening diffuse bilateral pulmonary infiltrates 12/22: T-max 101.1 Fahrenheit. Currently 98.9 Fahrenheit. +2493 cc past 24 hours. No bowel movement. Currently on roto-prone bed on epoprostenol at 50, 000 ng/kg/min aerosolized. On tube feeds Glucerna 1.5 at 20 cc an hour. Subjective 12/23: Overnight, when switching from supine to prone position patient 32nd episode of asystole resolved without chest compressions. We are currently patient has been prone position again with very slow with and without. Tolerating tube feeds now. Remains on cisatracurium drip at 4 mcg/min 12/24 Patient remains sedated and intubated. On Diprivan, Fentanyl, Versed in addition to Nimbex and Dopamine @5mics. Afebrile. 12/25 No events overnight. Remains sedated, intubated and on Rotoprone bed. On Dopamine 5 mics and Nimbex. T:99.7 Objective Vital Signs Date Time Temp Pulse Resp B/P (MAP) Pulse Ox O2 Delivery O2 Flow Rate FiO2 12/25/17 06:00 62 12/25/17 04:29 93 60 12/25/17 04:00 120/65 (83) 121/58 (79) 12/25/17 04:00 99.7 16 Intake and Output 12/25/17 12/25/17 12/26/17 08:00 16:00 00:00 Intake Total 789 ml Output Total 3650 ml Balance -2861 ml Result Diagram: 12/25/17 0340 12/25/17 0340 Other Results Laboratory Tests Test 12/25/17 03:40 White Blood Count 24.9 TH/MM3 Red Blood Count 4.07 MIL/MM3 Hemoglobin 12.0 GM/DL Hematocrit 35.6 % Mean Corpuscular Volume 87.4 FL Mean Corpuscular Hemoglobin 29.5 PG Mean Corpuscular Hemoglobin Concent 33.8 % Red Cell Distribution Width 12.6 % Platelet Count 447 TH/MM3 Mean Platelet Volume 8.2 FL Neutrophils (%) (Auto) 93.5 % Lymphocytes (%) (Auto) 3.6 % Monocytes (%) (Auto) 2.8 % Eosinophils (%) (Auto) 0.0 % Basophils (%) (Auto) 0.1 % Neutrophils # (Auto) 23.3 TH/MM3 Lymphocytes # (Auto) 0.9 TH/MM3 Monocytes # (Auto) 0.7 TH/MM3 Eosinophils # (Auto) 0.0 TH/MM3 Basophils # (Auto) 0.0 TH/MM3 CBC Comment AUTO DIFF Differential Comment AUTO DIFF CONFIRMED Blood Urea Nitrogen 32 MG/DL Creatinine 0.64 MG/DL Random Glucose 186 MG/DL Total Protein 5.7 GM/DL Calcium Level 7.4 MG/DL Phosphorus Level 3.3 MG/DL Magnesium Level 2.3 MG/DL Sodium Level 143 MEQ/L Potassium Level 4.1 MEQ/L Chloride Level 105 MEQ/L Carbon Dioxide Level 30.7 MEQ/L Anion Gap 7 MEQ/L Estimat Glomerular Filtration Rate 100 ML/MIN Protein Corrected Calcium 8.2 MG/DL Imaging Last Impressions Chest X-Ray 12/24/17 0600 Signed Impressions: Service Date/Time: Sunday, December 24, 2017 04:53 - CONCLUSION: Persistent dense consolidation right upper lobe and a new small area of consolidation in the left lower lobe. Yomi Lopez MD CT Angiography 12/16/17 0000 Signed Impressions: Service Date/Time: Saturday, December 16, 2017 13:49 - CONCLUSION: 1. Negative for pulmonary emboli. 2. Dense consolidation in the lungs especially the lung bases with several cavitary lesions as above. Findings are most characteristic of pneumonia. Cannot exclude septic embolic disease. No significant effusion. Malachi Hardin MD Objective Remarks GENERAL: 47-year-old female currently in roto-prone bed orotracheally intubated SKIN: Warm and dry. HEAD: Normocephalic. EYES: No scleral icterus. No injection or drainage. ENT: Orotracheally intubated NECK: Supple, trachea midline. Left IJ CVL is clean dry and intact CARDIOVASCULAR: Currently normal sinus rhythm. RRR. S1, S2 no strip without murmur RESPIRATORY: Breath sounds equal bilaterally. Bilateral coarse rhonchi and wheezes. GASTROINTESTINAL: Abdomen soft, non-tender, nondistended. MUSCULOSKELETAL: No significant peripheral edema Neuro: No gag. Pupils are reactive about 2 mm. No withdrawal to pain. 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 Patient at risk for CIM however extremely hypoxic with severe ARDS. UDS: + benzos, cannabinoids Acetaminophen 650 mg liquid by tube every 6 hours as needed fever Respiratory: Acute hypoxemic respiratory failure ARDS Small right Pneumothorax Pneumomediastinum Hemoptysis by history Pulmonary cavitary lesions ACV 16/500/10/60 Ventilator bundle Albuterol/ipratropium aerosols every 4 hours with albuterol aerosols every 2 hours as needed dyspnea Budesonide 0.5/2 1 inhalation twice daily Methylprednisolone succinate 40 mg IV every [address] Tejeda pulmonology following Followup on CXR No spontaneous breathing trials or sedation medication due to neuromuscular paralysis and high O2 requirements 12/16 -CT Angio - extensive pneumomediastinum extending into neck and upper chest. Dense consolidation at both lung bases, air bronchograms , 2 cavitary lesions 12/16-bronchoscopy performed by Dr. Klein, no active sites noted for bleeding, moderate purulent mucus bilaterally noted 2 BAL samples sent CTS is following for Pneumomediastinum-per Dr. Guadarrama no intervention at this time. Cardiovascular: Paroxysmal atrial fibrillation SVT Probable infective endocarditis Status post CODE BLUE -likely respiratory induced Elevated troponin Wean off Dopamine now is at 5 mg/kg/min keep MAP>65mmHg on sotalol 40 mg twice daily by Dr. Bray 12/19 Monitor HR and BP keep MAP>65mmHg Transesophageal echocardiogram 12/20 revealed no signs of endocarditis. Preserved LV function. Trace MR/TR Echo 3 showed EF 60-65% Echo 3 EF 50%. Cannot rule out regional wall motion and ability Troponin currently 1.26 and downward trending Aspirin 81 mg p.o. daily FEN/Renal: Hypernatremia Monitor renal function Electrolytes replacement per protocol. Continue Lasix 40mg Q12 GI: Elevated AST and alkaline phosphatase Hypoalbuminemia On tube feeds-change to Glucerna 1.5 with goal rate 55ml/hr Famotidine 20 mg twice daily GI prophylaxis Docusate sodium/senna 1 tablet twice daily for bowel regimen ID: MRSA Bacteremia Severe sepsis ABX per ID: Continue daptomycin 500 mg IV every 24 hours and ceftaroline 600 mg IV every 12 hours meropenem 1 g IV every 8 hours 3 day #3 JEANINE revealed no signs of endocarditis 12/20 12/15 [facility] from [place]- MRSA 12/16 Bronch BAL- MRSA [facility] 12/16, 12/17 12/18: MRSA Blood culture 12/19 no growth 12/20 sputum/urine pending influenza, pneumococcal and Legionella antigens- Negative Heme: Leukocytosis Normocytic anemia Monitor CBC. 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 Needs brain imaging in future when stable Sliding scale insulin Accu-Cheks every 6 hours to maintain euglycemia/medium regimen and Levemir insulin 8 units subcu twice daily Low free T3 and T4 on levothyroxine 25 mcg daily with low T4. 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 Prophylaxis: GI Prophylaxis Famotidine IV DVT Prophylaxis -- SCDs -heparin SQ Lines: Left IJ CVL day #3 placed 3 Left radial arterial line day #3 placed 3/ by respiratory therapy Critical Care: The total critical care time was 30 minutes. Time to perform other separately billable procedures was not included in the critical care time. Problem Qualifiers (1) Sepsis: Qualified Codes: A41.9 - Sepsis, unspecified organism Crystal Magdaleno MD Dec 25, 2017 08:18
[2017-12-25] MEDS: RESP: BUDESONIDE 0.5 MG/2 ML NEB NEB SCH ×2 (08:40→22:30)
[2017-12-25] MEDS: RESP: ALBUTEROL 2.5 MG/3 ML NEB (PRN) NEB (08:40)
[2017-12-25] MEDS: methylPREDNISolone SOD SUCC 40 MG/1 ML VIAL IV PUSH SCH ×2 (09:38→17:19)
[2017-12-25] MEDS: CEFTAROLINE INJ 600 MG in SODIUM CHLORIDE 0.9% INJ 100 ML IV SCH ×2 (09:39→21:52)
--- NOTE | 2017-12-25 10:05 | RADRPT ---
EXAM DATE/TIME: 12/25/2017 09:02 [facility] COMPARISON: CHEST SINGLE AP, December 24, 2017, 4:53. INDICATIONS : Ventilator-dependant respiratory failure. MEDICAL HISTORY : Sepsis. Pneumonia SURGICAL HISTORY : Cholecystectomy. Hysterectomy. ENCOUNTER: Subsequent ACUITY: 2 weeks PAIN SCORE: Non-responsive. LOCATION: Bilateral chest FINDINGS: The support devices remain in place and are unchanged compared to the prior exam. There continues to be bilateral pulmonary infiltrates of both lung [place]. There continues to be some parenchymal consol idation in the right upper lung which appears to be stable. There has been no significant change in t he bilateral pulmonary infiltrates. The heart size is stable. No significant pleural effusions. There is no evidence of pneumothorax. CONCLUSION: No significant interval change compared to the prior exam with the bilateral pulmonary infiltrates. Johnny Brown MD on December 25, 2017 at 10:00 Board Certified Radiologist. This report was verified electronically.
--- NOTE | 2017-12-25 10:22 | HHI.IDPN ---
Subjective Subjective Remarks Patient is a 47-year-old female, who initially presented to the [facility] ED complaining of 4 day history of chest pain and shortness of breath. In have any other history. She was apparently coughing and was bringing up some brownish phlegm. There was no mention of any fever or chills. No nausea or vomiting. No urinary complaints. Chest x-ray showed bilateral patchy basilar infiltrates. CTA did not show any pulmonary embolism, showed bilateral infiltrates with some cavitary lesions noted. She was transferred to the main hospital, and she apparently had some blood in the sputum. She ended up getting intubated. [facility] did bronchoscopy on her. Patient currently sedated postintubation. Her blood pressure is okay and she is not hypotensive. She is tachycardic. Infectious disease consultation has been requested to evaluate the patient with pneumonia Notes reviewed On rotaprone bed On sedation and nimbex Also on dopamine Vent FiO2 60% All BC with MRSA 12/15-12/18 No new (+) BC Bronch C/S MRSA WBC stable Started on solumedrol 12/20 JEANINE no vegetation [facility] Current Medications Medications (Trade) Dose Ordered Sig/Marily Route Start Time Stop Time Status Last Admin (NS Flush) 2 ml UNSCH PRN IV FLUSH 12/15/17 22:30 (NS Flush) 2 ml BID IV FLUSH 12/16/17 09:00 12/25/17 07:55 (Robitussin Dm 200-20 Mg/10 ml Liq) 10 ml Q4H PRN PO 12/15/17 22:30 Future Hold (Heparin Inj) 5,000 units Q8H SQ 12/16/17 12:00 12/25/17 03:10 (Morphine Inj) 1 mg Q4H PRN IM 12/16/17 09:15 Future Hold 12/16/17 10:11 (Mucinex Er) 600 mg BID PO 12/16/17 09:15 Future Hold 12/16/17 10:51 Propofol 100 ml @ 2.1 mls/hr TITRATE PRN IV 12/16/17 14:45 12/25/17 07:57 Fentanyl Citrate 250 ml @ 5 mls/hr TITRATE PRN IV 12/16/17 16:30 12/25/17 06:17 (Pepcid Inj) 20 mg Q12H IV PUSH 12/16/17 17:00 12/25/17 04:40 Miscellaneous Information 1 Q361D XX 12/16/17 16:45 (Chlorhexidine 2% Cloth) Taper DAILY@04 TOP 12/17/17 04:00 12/13/18 03:59 12/25/17 03:10 (Chlorhexidine 2% Cloth) 3 pack UNSCH PRN TOP 12/16/17 16:45 (Milk Of Magnesia Liq) 30 ml Q12H PRN PO 12/16/17 16:45 (Senokot) 17.2 mg Q12H PRN PO 12/16/17 16:45 (Dulcolax Supp) 10 mg DAILY PRN RECTAL 12/16/17 16:45 (Lactulose Liq) 30 ml DAILY PRN PO 12/16/17 16:45 (Peridex 0.12% Liq) 15 ml BID@08,20 MT 12/16/17 20:00 12/25/17 07:56 Midazolam HCl 100 ml @ 2 mls/hr TITRATE PRN IV 12/16/17 17:30 12/25/17 06:17 Potassium Chloride 100 ml @ 50 mls/hr Q2H PRN IV 12/17/17 07:45 Potassium Chloride 100 ml @ 50 mls/hr Q2H PRN IV 12/17/17 07:45 (K-Lyte Cl Eff) 50 meq UNSCH PRN PO 12/17/17 07:45 Potassium Chloride 100 ml @ 25 mls/hr UNSCH PRN IV 12/17/17 07:45 Potassium Chloride 100 ml @ 50 mls/hr Q2H PRN IV 12/17/17 07:45 Magnesium Sulfate 4 gm/Sodium Chloride 100 ml @ 50 mls/hr UNSCH PRN IV 12/17/17 07:45 (Mag-Ox) 800 mg UNSCH PRN PO 12/17/17 07:45 Magnesium Sulfate 2 gm/Sodium Chloride 100 ml @ 50 mls/hr UNSCH PRN IV 12/17/17 07:45 (K-Phos) 2,000 mg Q4H PRN PO 12/17/17 07:45 12/17/17 23:49 Sodium Phosphate 30 mmol/Sodium Chloride 250 ml @ 42 mls/hr UNSCH PRN IV 12/17/17 07:45 12/18/17 08:40 (K-Phos) 2,000 mg UNSCH PRN PO/TUBE 12/17/17 07:45 Potassium Phosphate 30 mmol/ Sodium Chloride 260 ml @ 42 mls/hr UNSCH PRN IV 12/17/17 07:45 12/19/17 07:57 Ceftaroline Fosamil 600 mg/ Sodium Chloride 100 ml @ 100 mls/hr Q12H IV 12/19/17 10:00 12/25/17 09:39 Daptomycin 500 mg/ Sodium Chloride 100 ml @ 200 mls/hr Q24H IV 12/19/17 12:00 12/24/17 11:51 Dopamine HCl/ Dextrose 500 ml @ 0 mls/hr TITRATE PRN IV 12/21/17 03:00 12/24/17 07:30 (Brethine Inj) 1 mg UNSCH PRN SQ 12/21/17 03:00 Cisatracurium Besylate 100 mg/ Sodium Chloride 260 ml @ 11.62 mls/ hr TITRATE PRN IV 12/21/17 08:30 12/25/17 05:34 (Albuterol Neb) 2.5 mg Q2HR NEB PRN NEB 12/21/17 08:30 12/25/17 08:40 (Pulmicort Respule Neb) 0.5 mg Q12HR NEB NEB 12/21/17 20:00 12/25/17 08:40 (NS Flush) DAILY IV FLUSH 12/22/17 09:00 12/25/17 07:55 (NS Flush) UNSCH PRN IV FLUSH 12/21/17 09:15 (Bactroban Nasal 2% Oint) 1 applic Taper BID EACH NARE 12/21/17 21:00 12/17/18 20:59 12/25/17 07:54 (Lacrilube Opht Oint) 1 applic Q12HR EACH EYE 12/21/17 10:00 12/25/17 07:55 (D50w (Vial) Inj) 50 ml UNSCH PRN IV PUSH 12/21/17 09:15 (Glucagon Inj) 1 mg UNSCH PRN OTHER 12/21/17 09:15 (NovoLIN R SUPPLEMENTAL SCALE) 1 Q6HR SQ 12/21/17 12:00 12/25/17 05:00 Meropenem 1000 mg/ Sodium Chloride 100 ml @ 200 mls/hr Q8H IV 12/21/17 11:00 12/25/17 02:33 (Tylenol 650 Mg/ 20 ml Liq) 650 mg Q6H PRN NG 12/21/17 09:30 12/22/17 16:14 Epoprostenol Sodium 75 ml/ Sodium Chloride 100 ml @ 5 mls/hr Q8H NEB 12/21/17 10:00 12/24/17 22:08 (Betapace) 40 mg Q12HR PEG 12/21/17 21:00 12/25/17 07:54 (Pill Splitter) 1 ea UNSCH PRN OTHER 12/21/17 21:00 (Aspirin Chew) 81 mg DAILY CHEW 12/22/17 09:00 12/25/17 07:54 (Cathflo Activase Inj) 2 mg Q2H PRN INTRACATH 12/22/17 14:15 12/22/17 14:37 (Synthroid) 25 mcg DAILY@0600 PO 12/23/17 06:00 12/25/17 05:00 (Colace Liq) 100 mg Q12HR NG 12/23/17 21:00 12/25/17 07:55 (Senna Liq) 8.8 mg BID NG 12/23/17 21:00 12/25/17 07:53 (Miralax) 17 gm BID NG 12/23/17 21:00 12/25/17 07:55 (Lactulose Liq) 30 ml QID PO 12/23/17 13:00 12/25/17 07:53 (Levemir Inj) 8 units Q12HR SQ 12/23/17 21:00 12/25/17 07:55 (Lasix Inj) 40 mg BID@,18 IV PUSH 12/24/17 09:00 12/25/17 07:54 (Reglan Inj) 5 mg Q8H PRN IV PUSH 12/24/17 17:45 12/24/17 20:08 (SoluMEDROL INJ) 40 mg Q8H IV PUSH 12/25/17 10:00 12/25/17 09:38 Lines LIJ TLC - 12/21 Past Medical History Anxiety Past Surgical History Cholecystectomy Hysterectomy Allergies: Coded Allergies: No Known Allergies (Unverified , 12/15/17) Objective . Vital Signs Date Time Temp Pulse Resp B/P (MAP) Pulse Ox O2 Delivery O2 Flow Rate FiO2 12/25/17 09:27 70 87/41 12/25/17 08:51 75 97/43 12/25/17 08:40 98 60 12/25/17 08:15 57 140/70 12/25/17 08:00 57 111/56 (74) 140/70 (93) 12/25/17 08:00 60 12/25/17 08:00 57 12/25/17 08:00 98.2 57 16 111/56 (74) 95 140/70 (93) 12/25/17 07:00 57 16 122/51 (74) 95 12/25/17 07:00 59 104/43 12/25/17 07:00 57 12/25/17 06:00 62 12/25/17 04:29 93 60 12/25/17 04:00 60 12/25/17 04:00 63 12/25/17 04:00 63 120/65 (83) 121/58 (79) 12/25/17 04:00 99.7 63 16 120/65 (83) 94 121/58 (79) 12/25/17 02:00 56 12/25/17 01:50 93 60 12/25/17 00:00 57 144/71 (95) 149/86 (107) 12/25/17 00:00 57 12/25/17 00:00 97.5 57 16 144/71 (95) 98 149/86 (107) 12/25/17 00:00 60 12/24/17 22:45 97 60 12/24/17 22:00 59 12/24/17 20:00 98.3 63 16 106/89 (95) 93 12/24/17 20:00 63 106/89 (95) 12/24/17 20:00 60 12/24/17 20:00 63 12/24/17 19:45 93 60 12/24/17 18:00 54 12/24/17 17:00 51 12/24/17 16:58 93 60 12/24/17 16:00 52 101/54 (70) 80/48 (59) 12/24/17 16:00 98.5 52 16 101/54 (70) 96 80/48 (59) 12/24/17 16:00 52 12/24/17 16:00 60 12/24/17 15:00 54 16 111/57 (75) 93 12/24/17 15:00 54 12/24/17 14:00 60 12/24/17 14:00 62 16 128/67 (87) 93 132/58 (82) 12/24/17 13:00 64 12/24/17 13:00 64 16 132/57 (82) 94 12/24/17 12:20 92 60 12/24/17 12:00 98.5 63 6 147/77 (100) 91 116/100 (105) 12/24/17 12:00 63 12/24/17 12:00 60 12/24/17 11:00 63 12/24/17 11:00 63 1 128/63 (84) 91 12/25/17 12/25/17 12/26/17 15:00 23:00 07:00 Intake Total 100 ml Balance 100 ml IV Total 100 ml . Laboratory Tests Test 12/24/17 05:30 12/25/17 03:40 White Blood Count 25.3 TH/MM3 24.9 TH/MM3 Red Blood Count 4.01 MIL/MM3 4.07 MIL/MM3 Hemoglobin 11.7 GM/DL 12.0 GM/DL Hematocrit 35.5 % 35.6 % Mean Corpuscular Volume 88.5 FL 87.4 FL Mean Corpuscular Hemoglobin 29.3 PG 29.5 PG Mean Corpuscular Hemoglobin Concent 33.1 % 33.8 % Red Cell Distribution Width 12.9 % 12.6 % Platelet Count 500 TH/MM3 447 TH/MM3 Mean Platelet Volume 8.1 FL 8.2 FL Neutrophils (%) (Auto) 92.7 % 93.5 % Lymphocytes (%) (Auto) 3.9 % 3.6 % Monocytes (%) (Auto) 3.3 % 2.8 % Eosinophils (%) (Auto) 0.0 % 0.0 % Basophils (%) (Auto) 0.1 % 0.1 % Neutrophils # (Auto) 23.5 TH/MM3 23.3 TH/MM3 Lymphocytes # (Auto) 1.0 TH/MM3 0.9 TH/MM3 Monocytes # (Auto) 0.8 TH/MM3 0.7 TH/MM3 Eosinophils # (Auto) 0.0 TH/MM3 0.0 TH/MM3 Basophils # (Auto) 0.0 TH/MM3 0.0 TH/MM3 CBC Comment AUTO DIFF AUTO DIFF Differential Comment AUTO DIFF CONFIRMED AUTO DIFF CONFIRMED Toxic Granulation 1+ Platelet Estimate HIGH Platelet Morphology Comment NORMAL Laboratory Tests Test 12/24/17 05:30 12/25/17 03:40 Blood Urea Nitrogen 33 MG/DL 32 MG/DL Creatinine 0.63 MG/DL 0.64 MG/DL Random Glucose 150 MG/DL 186 MG/DL Total Protein 5.8 GM/DL 5.7 GM/DL Albumin 1.6 GM/DL Calcium Level 7.5 MG/DL 7.4 MG/DL Phosphorus Level 3.1 MG/DL 3.3 MG/DL Magnesium Level 2.4 MG/DL 2.3 MG/DL Alkaline Phosphatase 92 U/L Aspartate Amino Transf (AST/SGOT) 18 U/L Alanine Aminotransferase (ALT/SGPT) 16 U/L Total Bilirubin 0.3 MG/DL Sodium Level 145 MEQ/L 143 MEQ/L Potassium Level 4.3 MEQ/L 4.1 MEQ/L Chloride Level 109 MEQ/L 105 MEQ/L Carbon Dioxide Level 28.6 MEQ/L 30.7 MEQ/L Anion Gap 7 MEQ/L 7 MEQ/L Estimat Glomerular Filtration Rate 102 ML/MIN 100 ML/MIN Protein Corrected Calcium 8.2 MG/DL Microbiology Date/Time Source Procedure Growth Status 12/22/17 14:25 Blood Line Aerobic Blood Culture - Preliminary NO GROWTH IN 2 DAYS Resulted 12/22/17 14:25 Blood Line Anaerobic Blood Culture - Preliminary NO GROWTH IN 2 DAYS Resulted 12/22/17 13:27 Blood Line Aerobic Blood Culture - Preliminary NO GROWTH IN 2 DAYS Resulted 12/22/17 13:27 Blood Line Anaerobic Blood Culture - Preliminary NO GROWTH IN 2 DAYS Resulted Imaging Last Impressions Chest X-Ray 12/24/17 0600 Signed Impressions: Service Date/Time: Sunday, December 24, 2017 04:53 - CONCLUSION: Persistent dense consolidation right upper lobe and a new small area of consolidation in the left lower lobe. Yomi Lopez MD CT Angiography 12/16/17 0000 Signed Impressions: Service Date/Time: Saturday, December 16, 2017 13:49 - CONCLUSION: 1. Negative for pulmonary emboli. 2. Dense consolidation in the lungs especially the lung bases with several cavitary lesions as above. Findings are most characteristic of pneumonia. Cannot exclude septic embolic disease. No significant effusion. Malachi Hardin MD Chest X-Ray 12/17/17 0600 Signed Impressions: Service Date/Time: Sunday, December 17, 2017 03:12 - CONCLUSION: Unchanged bilateral infiltrates. Yomi Shipley Jr., MD Chest X-Ray 12/16/17 0000 Signed Impressions: Service Date/Time: Saturday, December 16, 2017 16:35 - CONCLUSION: 1. No significant pneumothorax identified on plain film post bronchoscopy. Endotracheal tube and basilar airspace disease not significantly changed. Malachi Hardin MD Chest X-Ray 12/16/17 0000 Signed Impressions: Service Date/Time: Saturday, December 16, 2017 15:22 - CONCLUSION: 1. Endotracheal tube in good position. Extensive pneumomediastinum. Dense consolidation in the lungs. Malachi Hardin MD CT Angiography 12/16/17 0000 Signed Impressions: Service Date/Time: Saturday, December 16, 2017 13:49 - CONCLUSION: 1. Negative for pulmonary emboli. 2. Dense consolidation in the lungs especially the lung bases with several cavitary lesions as above. Findings are most characteristic of pneumonia. Cannot exclude septic embolic disease. No significant effusion. Malachi Hardin MD Physical Exam GENERAL: Sedated, on paralytics, on rotaprone bed. SKIN: Warm and dry. No rash on the back. EYES: Sagar conjunctiva. No petechia or hemorrhage. Pupils equal, round and reactive to light. No scleral icterus. No injection or drainage. EARS, NOSE AND THROAT: Nose without bleeding or purulent nasal discharge. She is orally intubated. NECK: Trachea midline. Supple and not tender, no meningeal signs CARDIOVASCULAR: Tachycardic RESPIRATORY: Diffuse rhonchi EXTREMITIES: has edema NEUROLOGICAL: Sedated, and on paralytics PSYCHIATRIC: Unable to assess LINE: No evidence of infection Assessment & Plan Remarks IMPRESSION Sepsis present, high grade, on admission, has MRSA on blood cultures - S/P arrest Bilateral pneumonia, some with cavitation - C/S with MRSA - CXR worse Very worrisome for endocarditis - clinically , but JEANINE negative Respiratory failure. worsening infiltrates, PNA, ?ARDS RECOMMENDATION Follow new cultures and adjust antibiotics Continue Cubicin until clearing of BC Continue Teflaro Stop Meropenem Follow temps Monitor progress Liliam Su MD Dec 25, 2017 10:22
[2017-12-25] MEDS: EPOPROSTENOL NEB SOLUTION 50 NG/KG/MIN 100 ML NEB SCH ×4 (11:35→18:00)
[2017-12-25] MEDS: DAPTOmycin INJ 500 MG in SODIUM CHLORIDE 0.9% INJ 100 ML IV SCH (11:35)
--- NOTE | 2017-12-25 15:20 | PD.CARD.PN ---
Subjective Subjective Remarks Intubated, sedated, no a fib, hypotensive, on dopamine Objective Medications Current Medications Medications (Trade) Dose Ordered Sig/Marily Route Start Time Stop Time Status Last Admin (NS Flush) 2 ml UNSCH PRN IV FLUSH 12/15/17 22:30 (NS Flush) 2 ml BID IV FLUSH 12/16/17 09:00 12/25/17 07:55 (Robitussin Dm 200-20 Mg/10 ml Liq) 10 ml Q4H PRN PO 12/15/17 22:30 Future Hold (Heparin Inj) 5,000 units Q8H SQ 12/16/17 12:00 12/25/17 11:35 (Morphine Inj) 1 mg Q4H PRN IM 12/16/17 09:15 Future Hold 12/16/17 10:11 (Mucinex Er) 600 mg BID PO 12/16/17 09:15 Future Hold 12/16/17 10:51 Propofol 100 ml @ 2.1 mls/hr TITRATE PRN IV 12/16/17 14:45 12/25/17 12:22 Fentanyl Citrate 250 ml @ 5 mls/hr TITRATE PRN IV 12/16/17 16:30 12/25/17 06:17 (Pepcid Inj) 20 mg Q12H IV PUSH 12/16/17 17:00 12/25/17 04:40 Miscellaneous Information 1 Q361D XX 12/16/17 16:45 (Chlorhexidine 2% Cloth) Taper DAILY@04 TOP 12/17/17 04:00 12/13/18 03:59 12/25/17 03:10 (Chlorhexidine 2% Cloth) 3 pack UNSCH PRN TOP 12/16/17 16:45 (Milk Of Magnesia Liq) 30 ml Q12H PRN PO 12/16/17 16:45 (Senokot) 17.2 mg Q12H PRN PO 12/16/17 16:45 (Dulcolax Supp) 10 mg DAILY PRN RECTAL 12/16/17 16:45 (Lactulose Liq) 30 ml DAILY PRN PO 12/16/17 16:45 (Peridex 0.12% Liq) 15 ml BID@08,20 MT 12/16/17 20:00 12/25/17 07:56 Midazolam HCl 100 ml @ 2 mls/hr TITRATE PRN IV 12/16/17 17:30 12/25/17 06:17 Potassium Chloride 100 ml @ 50 mls/hr Q2H PRN IV 12/17/17 07:45 Potassium Chloride 100 ml @ 50 mls/hr Q2H PRN IV 12/17/17 07:45 (K-Lyte Cl Eff) 50 meq UNSCH PRN PO 12/17/17 07:45 Potassium Chloride 100 ml @ 25 mls/hr UNSCH PRN IV 12/17/17 07:45 Potassium Chloride 100 ml @ 50 mls/hr Q2H PRN IV 12/17/17 07:45 Magnesium Sulfate 4 gm/Sodium Chloride 100 ml @ 50 mls/hr UNSCH PRN IV 12/17/17 07:45 (Mag-Ox) 800 mg UNSCH PRN PO 12/17/17 07:45 Magnesium Sulfate 2 gm/Sodium Chloride 100 ml @ 50 mls/hr UNSCH PRN IV 12/17/17 07:45 (K-Phos) 2,000 mg Q4H PRN PO 12/17/17 07:45 12/17/17 23:49 Sodium Phosphate 30 mmol/Sodium Chloride 250 ml @ 42 mls/hr UNSCH PRN IV 12/17/17 07:45 12/18/17 08:40 (K-Phos) 2,000 mg UNSCH PRN PO/TUBE 12/17/17 07:45 Potassium Phosphate 30 mmol/ Sodium Chloride 260 ml @ 42 mls/hr UNSCH PRN IV 12/17/17 07:45 12/19/17 07:57 Ceftaroline Fosamil 600 mg/ Sodium Chloride 100 ml @ 100 mls/hr Q12H IV 12/19/17 10:00 12/25/17 09:39 Daptomycin 500 mg/ Sodium Chloride 100 ml @ 200 mls/hr Q24H IV 12/19/17 12:00 12/25/17 11:35 Dopamine HCl/ Dextrose 500 ml @ 0 mls/hr TITRATE PRN IV 12/21/17 03:00 12/24/17 07:30 (Brethine Inj) 1 mg UNSCH PRN SQ 12/21/17 03:00 Cisatracurium Besylate 100 mg/ Sodium Chloride 260 ml @ 11.62 mls/ hr TITRATE PRN IV 12/21/17 08:30 12/25/17 12:22 (Albuterol Neb) 2.5 mg Q2HR NEB PRN NEB 12/21/17 08:30 12/25/17 08:40 (Pulmicort Respule Neb) 0.5 mg Q12HR NEB NEB 12/21/17 20:00 12/25/17 08:40 (NS Flush) DAILY IV FLUSH 12/22/17 09:00 12/25/17 07:55 (NS Flush) UNSCH PRN IV FLUSH 12/21/17 09:15 (Bactroban Nasal 2% Oint) 1 applic Taper BID EACH NARE 12/21/17 21:00 12/17/18 20:59 12/25/17 07:54 (Lacrilube Opht Oint) 1 applic Q12HR EACH EYE 12/21/17 10:00 12/25/17 07:55 (D50w (Vial) Inj) 50 ml UNSCH PRN IV PUSH 12/21/17 09:15 (Glucagon Inj) 1 mg UNSCH PRN OTHER 12/21/17 09:15 (NovoLIN R SUPPLEMENTAL SCALE) 1 Q6HR SQ 12/21/17 12:00 12/25/17 11:35 (Tylenol 650 Mg/ 20 ml Liq) 650 mg Q6H PRN NG 12/21/17 09:30 12/22/17 16:14 Epoprostenol Sodium 75 ml/ Sodium Chloride 100 ml @ 5 mls/hr Q8H NEB 12/21/17 10:00 12/25/17 11:35 (Betapace) 40 mg Q12HR PEG 12/21/17 21:00 12/25/17 07:54 (Pill Splitter) 1 ea UNSCH PRN OTHER 12/21/17 21:00 (Aspirin Chew) 81 mg DAILY CHEW 12/22/17 09:00 12/25/17 07:54 (Cathflo Activase Inj) 2 mg Q2H PRN INTRACATH 12/22/17 14:15 12/22/17 14:37 (Synthroid) 25 mcg DAILY@0600 PO 12/23/17 06:00 12/25/17 05:00 (Colace Liq) 100 mg Q12HR NG 12/23/17 21:00 12/25/17 07:55 (Senna Liq) 8.8 mg BID NG 12/23/17 21:00 12/25/17 07:53 (Miralax) 17 gm BID NG 12/23/17 21:00 12/25/17 07:55 (Lactulose Liq) 30 ml QID PO 12/23/17 13:00 12/25/17 11:35 (Levemir Inj) 8 units Q12HR SQ 12/23/17 21:00 12/25/17 07:55 (Lasix Inj) 40 mg BID@18 IV PUSH 12/24/17 09:00 12/25/17 07:54 (Reglan Inj) 5 mg Q8H PRN IV PUSH 12/24/17 17:45 12/24/17 20:08 (SoluMEDROL INJ) 40 mg Q8H IV PUSH 12/25/17 10:00 12/25/17 09:38 Vital Signs / I&O Vital Signs Date Time Temp Pulse Resp B/P (MAP) Pulse Ox O2 Delivery O2 Flow Rate FiO2 12/25/17 14:00 62 12/25/17 13:00 62 12/25/17 12:00 60 101/49 (66) 97/59 (72) 12/25/17 12:00 67 12/25/17 12:00 60 16 101/49 (66) 96 97/59 (72) 12/25/17 12:00 60 12/25/17 11:15 96 50 12/25/17 11:00 98.9 63 16 109/58 (75) 95 12/25/17 11:00 63 12/25/17 10:36 62 154/74 12/25/17 10:33 96 Ventilator 50 12/25/17 10:00 61 12/25/17 10:00 61 8 163/80 (107) 96 151/77 (101) 12/25/17 09:27 70 87/41 12/25/17 09:00 66 12/25/17 09:00 66 17 114/50 (71) 94 12/25/17 08:51 75 97/43 12/25/17 08:40 98 60 12/25/17 08:15 57 140/70 12/25/17 08:00 57 111/56 (74) 140/70 (93) 12/25/17 08:00 60 12/25/17 08:00 57 12/25/17 08:00 98.2 57 16 111/56 (74) 95 140/70 (93) 12/25/17 07:00 57 16 122/51 (74) 95 12/25/17 07:00 59 104/43 12/25/17 07:00 57 12/25/17 06:00 62 12/25/17 04:29 93 60 12/25/17 04:00 60 12/25/17 04:00 63 12/25/17 04:00 63 120/65 (83) 121/58 (79) 12/25/17 04:00 99.7 63 16 120/65 (83) 94 121/58 (79) 12/25/17 02:00 56 12/25/17 01:50 93 60 12/25/17 00:00 57 144/71 (95) 149/86 (107) 12/25/17 00:00 57 12/25/17 00:00 97.5 57 16 144/71 (95) 98 149/86 (107) 12/25/17 00:00 60 12/24/17 22:45 97 60 12/24/17 22:00 59 12/24/17 20:00 98.3 63 16 106/89 (95) 93 12/24/17 20:00 63 106/89 (95) 12/24/17 20:00 60 12/24/17 20:00 63 12/24/17 19:45 93 60 12/24/17 18:00 54 12/24/17 17:00 51 12/24/17 16:58 93 60 12/24/17 16:00 52 101/54 (70) 80/48 (59) 12/24/17 16:00 98.5 52 16 101/54 (70) 96 80/48 (59) 12/24/17 16:00 52 12/24/17 16:00 60 I/O 12/24/17 12/24/17 12/24/17 12/25/17 12/25/17 12/25/17 07:00 15:00 23:00 07:00 15:00 23:00 Intake Total 1640 ml 1899 ml 1270 ml 1149 ml 660 ml Output Total 1150 ml 4650 ml 3650 ml Balance 490 ml 1899 ml -3380 ml -2501 ml 660 ml IV Total 1150 ml 1899 ml 810 ml 910 ml 660 ml Tube Feeding 190 ml 260 ml 119 ml Other 300 ml 200 ml 120 ml Output Urine Total 1000 ml 4350 ml 2650 ml Stool Total 150 ml 300 ml 1000 ml Physical Exam GENERAL: Intubated, sedated, in Rotoprone SKIN: Warm and dry. HEAD: Normocephalic. EYES: No scleral icterus. No injection or drainage. NECK: Supple, trachea midline. No JVD or lymphadenopathy. CARDIOVASCULAR: Regular rate and rhythm without murmurs, gallops, or rubs. RESPIRATORY: Breath sounds equal bilaterally. No accessory muscle use. Bilat diffuse rhonchi. GASTROINTESTINAL: Abdomen soft, non-tender, nondistended. MUSCULOSKELETAL: No cyanosis, mild edema. Laboratory Laboratory Tests Test 12/25/17 03:40 12/25/17 11:55 White Blood Count 24.9 TH/MM3 Red Blood Count 4.07 MIL/MM3 Hemoglobin 12.0 GM/DL Hematocrit 35.6 % Mean Corpuscular Volume 87.4 FL Mean Corpuscular Hemoglobin 29.5 PG Mean Corpuscular Hemoglobin Concent 33.8 % Red Cell Distribution Width 12.6 % Platelet Count 447 TH/MM3 Mean Platelet Volume 8.2 FL Neutrophils (%) (Auto) 93.5 % Lymphocytes (%) (Auto) 3.6 % Monocytes (%) (Auto) 2.8 % Eosinophils (%) (Auto) 0.0 % Basophils (%) (Auto) 0.1 % Neutrophils # (Auto) 23.3 TH/MM3 Lymphocytes # (Auto) 0.9 TH/MM3 Monocytes # (Auto) 0.7 TH/MM3 Eosinophils # (Auto) 0.0 TH/MM3 Basophils # (Auto) 0.0 TH/MM3 CBC Comment AUTO DIFF Differential Comment AUTO DIFF CONFIRMED Blood Urea Nitrogen 32 MG/DL Creatinine 0.64 MG/DL Random Glucose 186 MG/DL Total Protein 5.7 GM/DL Calcium Level 7.4 MG/DL Phosphorus Level 3.3 MG/DL Magnesium Level 2.3 MG/DL Sodium Level 143 MEQ/L Potassium Level 4.1 MEQ/L Chloride Level 105 MEQ/L Carbon Dioxide Level 30.7 MEQ/L Anion Gap 7 MEQ/L Estimat Glomerular Filtration Rate 100 ML/MIN Protein Corrected Calcium 8.2 MG/DL Blood Gas Puncture Site ART LINE Blood Gas Patient Temperature 98.6 Blood Gas HCO3 32 mmol/L Blood Gas Base Excess 8.2 mmol/L Blood Gas Oxygen Saturation 95 % Arterial Blood pH 7.48 Arterial Blood Partial Pressure CO2 43 mmHg Arterial Blood Partial Pressure O2 95 mmHg Arterial Blood Oxygen Content 17.1 Vol % Arterial Blood Carboxyhemoglobin 0.6 % Arterial Blood Methemoglobin 1.3 % Blood Gas Hemoglobin 12.7 G/DL Oxygen Delivery Device VENTILATOR Blood Gas Ventilator Setting AC16/500/+10 Blood Gas Inspired Oxygen 50 % Imaging Last 24 hours Impressions Chest X-Ray 12/25/17 0000 Signed Impressions: Service Date/Time: Monday, December 25, 2017 09:02 - CONCLUSION: No significant interval change compared to the prior exam with the bilateral pulmonary infiltrates. Johnny Brown MD Assessment and Plan Problem List: (1) Sepsis due to methicillin resistant Staphylococcus aureus (MRSA) ICD Codes: A41.02 - Sepsis due to Methicillin resistant Staphylococcus aureus (2) ARDS (adult respiratory distress syndrome) ICD Codes: J80 - Acute respiratory distress syndrome (3) Bilateral pneumonia ICD Codes: J18.9 - Pneumonia, unspecified organism Status: Acute (4) Acute hypoxemic respiratory failure ICD Codes: J96.01 - Acute respiratory failure with hypoxia (5) Paroxysmal atrial fibrillation ICD Codes: I48.0 - Paroxysmal atrial fibrillation (6) Bradycardia ICD Codes: R00.1 - Bradycardia, unspecified Assessment and Plan Stays in SR, no recurrent AF. Still has occasional episodes of bradycardia, likely respiratory related, possibly exacerbated by sotalol (started for a fib) . Also has episodes of hypotension requiring pressors. Troponin elevated, but not trending in either direction. JEANINE with no evidence of endocarditis, LV fx preserved. Stays in SR on sotalol, no recurrent tachyarrhythmias, dose decreased , continue 40 mg BID since recently had AF w RVR. Continue sotalol to prevent AF unless significantly bradycardic (HR below 50bpm) or recurrent hypotension is present. Continue tx for pneumonia/sepsis. Continue current program with ICU care and vent support. Valorie Bray MD Dec 25, 2017 15:20
[2017-12-25] MEDS: DOPamine 800 MG/500 ML INJ 500 ML IV PRN (16:40)
--- NOTE | 2017-12-25 19:39 | HHI.PR ---
Subjective Remarks on the ventilator sedated Objective Vital Signs Date Time Temp Pulse Resp B/P (MAP) Pulse Ox O2 Delivery O2 Flow Rate FiO2 12/25/17 18:00 58 12/25/17 17:00 63 12/25/17 16:40 61 124/51 12/25/17 16:00 60 12/25/17 16:00 63 138/67 (90) 125/55 (78) 12/25/17 16:00 63 12 138/67 (90) 96 125/55 (78) 12/25/17 16:00 63 12/25/17 15:00 62 16 124/55 (78) 97 12/25/17 15:00 62 12/25/17 14:00 62 16 108/55 (72) 97 121/57 (78) 12/25/17 14:00 62 12/25/17 13:00 62 12/25/17 13:00 62 16 97/72 (80) 96 12/25/17 12:00 60 101/49 (66) 97/59 (72) 12/25/17 12:00 67 12/25/17 12:00 60 16 101/49 (66) 96 97/59 (72) 12/25/17 12:00 60 12/25/17 11:15 96 50 12/25/17 11:00 98.9 63 16 109/58 (75) 95 12/25/17 11:00 63 12/25/17 10:36 62 154/74 12/25/17 10:33 96 Ventilator 50 12/25/17 10:00 61 12/25/17 10:00 61 8 163/80 (107) 96 151/77 (101) 12/25/17 09:27 70 87/41 12/25/17 09:00 66 12/25/17 09:00 66 17 114/50 (71) 94 12/25/17 08:51 75 97/43 12/25/17 08:40 98 60 12/25/17 08:15 57 140/70 12/25/17 08:00 57 111/56 (74) 140/70 (93) 12/25/17 08:00 60 12/25/17 08:00 57 12/25/17 08:00 98.2 57 16 111/56 (74) 95 140/70 (93) 12/25/17 07:00 57 16 122/51 (74) 95 12/25/17 07:00 59 104/43 12/25/17 07:00 57 12/25/17 06:00 62 12/25/17 04:29 93 60 12/25/17 04:00 60 12/25/17 04:00 63 12/25/17 04:00 63 120/65 (83) 121/58 (79) 12/25/17 04:00 99.7 63 16 120/65 (83) 94 121/58 (79) 12/25/17 02:00 56 12/25/17 01:50 93 60 12/25/17 00:00 57 144/71 (95) 149/86 (107) 12/25/17 00:00 57 12/25/17 00:00 97.5 57 16 144/71 (95) 98 149/86 (107) 12/25/17 00:00 60 12/24/17 22:45 97 60 12/24/17 22:00 59 12/24/17 20:00 98.3 63 16 106/89 (95) 93 12/24/17 20:00 63 106/89 (95) 12/24/17 20:00 60 12/24/17 20:00 63 12/24/17 19:45 93 60 I/O 12/24/17 12/24/17 12/24/17 12/25/17 12/25/17 12/25/17 07:00 15:00 23:00 07:00 15:00 23:00 Intake Total 1640 ml 1899 ml 1270 ml 1149 ml 660 ml 1747 ml Output Total 1150 ml 4650 ml 3650 ml 4800 ml Balance 490 ml 1899 ml -3380 ml -2501 ml 660 ml -3053 ml IV Total 1150 ml 1899 ml 810 ml 910 ml 660 ml 1210 ml Tube Feeding 190 ml 260 ml 119 ml 337 ml Other 300 ml 200 ml 120 ml 200 ml Output Urine Total 1000 ml 4350 ml 2650 ml 4000 ml Stool Total 150 ml 300 ml 1000 ml 800 ml Result Diagram: 12/25/17 0340 12/25/17 0340 Procedures BiPAP Objective Remarks GENERAL: sedated on vent support SKIN: Warm and dry. HEAD: Atraumatic. Normocephalic. EYES: Pupils equal and round. No scleral icterus. No injection or drainage. ENT: No nasal bleeding or discharge. Mucous membranes pink and moist. NECK: Trachea midline. No JVD. CARDIOVASCULAR: Regular rate and rhythm. RESPIRATORY: No accessory muscle use. Clear to auscultation. Breath sounds equal bilaterally. GASTROINTESTINAL: Abdomen soft, non-tender, nondistended. Hepatic and splenic margins not palpable. MUSCULOSKELETAL: Extremities without clubbing, cyanosis, or edema. No obvious deformities. NEUROLOGICAL: Awake and alert. No obvious cranial nerve deficits. Motor grossly within normal limits. Five out of 5 muscle strength in the arms and legs. Normal speech. PSYCHIATRIC: Appropriate mood and affect; insight and judgment normal. Assessment and Plan Assessment and Plan imp: respiratory failure/ARDS pna, plan vent support antibx per ID pulm toilet wean as tolerated Ileana Tejeda MD Dec 25, 2017 19:39
--- NOTE | 2017-12-25 20:43 | RADRPT ---
EXAM DATE/TIME: 12/25/2017 19:29 [facility] COMPARISON: CHEST SINGLE AP, December 25, 2017, 9:02. INDICATIONS : ET-tube placement. MEDICAL HISTORY : Sepsis. Pneumonia SURGICAL HISTORY : Cholecystectomy. Hysterectomy. ENCOUNTER: Subsequent ACUITY: 2 weeks PAIN SCORE: Non-responsive. LOCATION: Bilateral chest FINDINGS: A single view of the chest demonstrates endotracheal tube in good position. NG enters stomach. Dense consolidation right upper lobe. Patchy airspace disease in the remainder of the lungs. No effusion. T he central line in superior vena cava. CONCLUSION: 1. Dense consolidation right upper lobe with support apparatus in satisfactory position. Endotracheal tube in good position. Malachi Hardin MD on December 25, 2017 at 20:34 Board Certified Radiologist. This report was verified electronically.
[2017-12-25] MEDS: METOCLOPRAMIDE HCL 10 MG/2 ML VIAL IV PUSH PRN (20:54)
[2017-12-26] VITALS (19 sets, daily range): BP systolic 70–149; BP diastolic 48–78; PULSE 56–67; RESP 11–16; TEMP 97.5–98.9; O2SAT 88–99
[2017-12-26] MEDS: methylPREDNISolone SOD SUCC 40 MG/1 ML VIAL IV PUSH SCH ×3 (00:53→17:24)
[2017-12-26] MEDS: PROPOFOL 1000 MG/100 ML INJ 100 ML IV PRN ×6 (00:53→22:11)
[2017-12-26] MEDS: EPOPROSTENOL NEB SOLUTION 50 NG/KG/MIN 100 ML NEB SCH ×6 (00:54→19:36)
[2017-12-26] MEDS: fentaNYL DRIP 250 ML IV PRN ×2 (03:16→14:38)
[2017-12-26] MEDS: HEPARIN SODIUM - SQ 10,000 UNITS/ML VIAL SQ SCH ×3 (03:41→20:01)
[2017-12-26] MEDS: FAMOTIDINE 20 MG/2 ML VIAL IV PUSH SCH ×2 (03:41→16:19)
[2017-12-26] MEDS: MIDAZOLAM 100 MG/100 ML INJ 100 ML IV PRN ×2 (03:41→17:55)
[2017-12-26] MEDS: CISATRACURIUM INJ 100 MG in SODIUM CHLOR 0.9% 250 ML INJ 250 ML IV PRN ×4 (03:41→20:37)
[2017-12-26] MEDS: CHLORHEXIDINE GLUCONATE 2 % 1 PACK (2 CLOTHS) TOP SCH (03:42)
[2017-12-26 04:00] LABS: BASOPHIL % 0.1 % (0.0-2.0); EOSINOPHIL % 0.2 % (0.0-4.0); HEMATOCRIT 36.7 % (35.0-46.0); HEMOGLOBIN 12.2 GM/DL (11.6-15.3); LYMPH % 2.4 % (9.0-44.0); LYMPHOCYTE # 0.6 TH/MM3 (1.0-4.8); MEAN CELL VOLUME 86.5 FL (80.0-100.0); MEAN CORPUSCULAR HEMOGLOBIN 28.9 PG (27.0-34.0); MEAN CORPUSCULAR HGB CONC 33.4 % (32.0-36.0); MONO % 4.1 % (0.0-8.0); NEUT % 93.2 % (16.0-70.0); PLATELET COUNT 518 TH/MM3 (150-450); RED BLOOD COUNT 4.24 MIL/MM3 (4.00-5.30); RED CELL DISTRIBUTION WIDTH 12.9 % (11.6-17.2); WHITE BLOOD COUNT 24.7 TH/MM3 (4.0-11.0)
[2017-12-26 04:22] LABS: BICARBONATE 34.7 MEQ/L (21.0-32.0); CALCIUM 7.5 MG/DL (8.5-10.1); CREATININE 0.67 MG/DL (0.50-1.00); MAGNESIUM 2.2 MG/DL (1.5-2.5); PHOSPHORUS 2.7 MG/DL (2.5-4.9)
[2017-12-26] MEDS: LEVOTHYROXINE SODIUM 25 MCG TAB PO SCH (04:53)
[2017-12-26] MEDS: INSULIN NovoLIN REGULAR SUPPLEMENTAL SCALE SQ SCH ×4 (04:53→23:52)
--- NOTE | 2017-12-26 05:09 | RADRPT ---
EXAM DATE/TIME: 12/26/2017 02:37 [facility] COMPARISON: CHEST SINGLE AP, December 25, 2017, 19:29. INDICATIONS : Shortness of breath. MEDICAL HISTORY : Sepsis. Pneumonia SURGICAL HISTORY : None. ENCOUNTER: Subsequent ACUITY: 2 weeks PAIN SCORE: Non-responsive. LOCATION: Bilateral chest FINDINGS: Left central line tip projects over the origin of the superior vena cava. Gastric tube tip and side- port project within the stomach. There is persistent dense consolidation in the right upper lobe and patchy areas of infiltrates in the central left lung, stable from prior. Both hemidiaphragms are we ll delineated. CONCLUSION: Stable appearance of the lungs with dense consolidation in the right upper lobe and patchy infiltrate s in the central left lung. Yomi Lopez MD on December 26, 2017 at 5:07 Board Certified Radiologist. This report was verified electronically.
[2017-12-26 06:43] LABS: BANDS 11 % (0-6); LYMPHOCYTES 4 % (9-44); METAMYELOCYTES 1 % (0-1); MONOCYTES 5 % (0-8); NEUTROPHIL # MANUAL DIFF 22.5 TH/MM3 (1.8-7.7); POLYS (SEG NEUTROPHILS) 79 % (16-70)
[2017-12-26 06:44] LABS: TOXIC GRANULATION 1+ (NORMAL)
[2017-12-26] MEDS: RESP: BUDESONIDE 0.5 MG/2 ML NEB NEB SCH ×2 (07:11→20:27)
[2017-12-26] MEDS: RESP: ALBUTEROL 2.5 MG/3 ML NEB (PRN) NEB (07:12)
[2017-12-26] MEDS: CHLORHEXIDINE 0.12% (ORAL KIT) 15 ML CUP MT SCH ×2 (08:10→20:00)
[2017-12-26] MEDS: MUPIROCIN 2% OINT 1 APPLIC/GM SYR EACH NARE SCH ×2 (08:10→20:00)
[2017-12-26] MEDS: SOTALOL HCL 80 MG TAB PEG SCH (08:10)
[2017-12-26] MEDS: SODIUM CHLORIDE 0.9% FLUSH 10 ML FLUSH IV FLUSH SCH ×3 (08:11→20:01)
[2017-12-26] MEDS: ASPIRIN 81 MG CHEW TAB CHEW SCH (08:11)
[2017-12-26] MEDS: SENNOSIDES SYRUP 8.8 MG/5 ML CUP NG SCH ×2 (08:11→20:00)
[2017-12-26] MEDS: POLYETHYLENE GLYCOL 17 GM PKG NG SCH ×2 (08:11→20:00)
[2017-12-26] MEDS: DOCUSATE SODIUM 100 MG/10 ML UDC NG SCH ×2 (08:11→20:00)
[2017-12-26] MEDS: FUROSEMIDE 40 MG/4 ML VIAL IV PUSH SCH ×2 (08:12→17:24)
[2017-12-26] MEDS: ARTIFICIAL TEARS OPTH OINT 3.5 APPLIC/3.5 GM TUBO EACH EYE SCH ×2 (08:12→20:01)
[2017-12-26] MEDS: INSULIN DETEMIR 100 UNITS/ML VIAL SQ SCH ×2 (08:13→20:01)
[2017-12-26] MEDS: LACTULOSE SYRUP 20 GM/30 ML CUP PO SCH ×4 (08:13→20:00)
[2017-12-26] MEDS: CEFTAROLINE INJ 600 MG in SODIUM CHLORIDE 0.9% INJ 100 ML IV SCH ×2 (09:16→21:29)
[2017-12-26] MEDS: DAPTOmycin INJ 500 MG in SODIUM CHLORIDE 0.9% INJ 100 ML IV SCH (12:24)
--- NOTE | 2017-12-26 13:13 | HHI.CCPN ---
Subjective Remarks/Hospital Course This is a 47-year-old female with a history of anxiety disorder, that presented to [facility] on with complaints of chest pain and dyspnea that has been lasting for the past 4 days. The patient was transferred to [facility]. Imaging and laboratory studies were initially performed which showed a chest x-ray with bilateral patchy airspace consolidation consistent with bronchial pneumonia, and her lactic acid level was noted to be 3.1. The patient's oxygen requirements continue to increase the patient became tachypneic with a respiratory rate in the 40s and tachycardic, heart rate in the 120s. Pulmonology was consulted, CT was performed which revealed no pulmonary emboli , will several cavitary lesions, dense consolidation at both lung bases, air bronchograms and extensive pneumomediastinum extending into the lower neck and upper chest .ICU was requested to see patient. Upon observation the patient was severely dyspneic, with significant accessory muscle movement, violently coughing hemoptysis. Decision made to intubate patient for airway protection. 12/17 Patient is sedated with Diprivan and versed infusion. afebrile. s/p bronch yesterday by Dr. Klein. 12/18 Patient remains sedated with Versed 10mg/hr and Fentanyl 250 mics. Tmax 102.1 yesterday. + MRSA in bronch and GPC/MRSA from [facility] 12/15 from [facility] 12/19: Patient developed respiratory distress and SVT this am with vent dyssynchrony with air trapping and elevated peak pressure. FiO2 increased to 100%, started on Nimbex infusion. Intermittently tachycardic, occasional bradycardia also. EKG shows sinus rhythm. Patient is very critical now. Will consult cardiology for JEANINE, and also regarding SVT. Chest x-ray shows worsening bilateral infiltrates concerning for ARDS 12/20: Remains intubated heavily sedated and neuromuscularly paralyzed to maintain ventilator synchrony and control peak pressures. Chest x-ray shows persistent bilateral infiltrates. JEANINE planned for today. All cultures so far positive for MRSA. Tachy Arrhythmia is better controlled after starting sotalol 12/21: CODE BLUE overnight when patient became bradycardic. Received epinephrine with chest compressions with return of spontaneous relief within 5 minutes according to RN. Currently on peripheral dopamine at 10 mcg/kg/min. FiO2 currently at 100%. Chest x-ray revealed worsening diffuse bilateral pulmonary infiltrates 12/22: T-max 101.1 Fahrenheit. Currently 98.9 Fahrenheit. +2493 cc past 24 hours. No bowel movement. Currently on roto-prone bed on epoprostenol at 50, 000 ng/kg/min aerosolized. On tube feeds Glucerna 1.5 at 20 cc an hour. Subjective 12/23: Overnight, when switching from supine to prone position patient 32nd episode of asystole resolved without chest compressions. We are currently patient has been prone position again with very slow with and without. Tolerating tube feeds now. Remains on cisatracurium drip at 4 mcg/min 12/24 Patient remains sedated and intubated. On Diprivan, Fentanyl, Versed in addition to Nimbex and Dopamine @5mics. Afebrile. 12/25 No events overnight. Remains sedated, intubated and on Rotoprone bed. On Dopamine 5 mics and Nimbex. T:99.7 12/26: Remains critically ill remains on prone ventilation. I will change on time/supine time to prospectively 5 hours/1 hour cycles. Increase PEEP to 10 to facilitate prolonged weaning. CXR shows persistent consolidation RUL Objective Vital Signs Date Time Temp Pulse Resp B/P (MAP) Pulse Ox O2 Delivery O2 Flow Rate FiO2 12/26/17 12:52 92 50 12/26/17 10:00 61 12/26/17 08:00 108/53 (71) 114/56 (75) 12/26/17 08:00 98.8 11 12/25/17 10:33 Ventilator Intake and Output 12/26/17 12/26/17 12/27/17 08:00 16:00 00:00 Intake Total 1050 ml Output Total 3300 ml Balance -2250 ml Result Diagram: 12/26/17 0347 12/26/17 0347 Other Results Laboratory Tests Test 12/26/17 12:36 Blood Gas Puncture Site ART LINE Blood Gas Patient Temperature 98.6 Blood Gas HCO3 33 mmol/L (22-26) Blood Gas Base Excess 8.9 mmol/L (-2-2) Blood Gas Oxygen Saturation 91 % (90-100) Arterial Blood pH 7.46 (7.380-7.420) Arterial Blood Partial Pressure CO2 47 mmHg (38-42) Arterial Blood Partial Pressure O2 70 mmHg (61-120) Arterial Blood Oxygen Content 15.8 Vol % (12.0-20.0) Arterial Blood Carboxyhemoglobin 0.8 % (0-4) Arterial Blood Methemoglobin 1.3 % (0-2) Blood Gas Hemoglobin 12.3 G/DL (12.0-16.0) Oxygen Delivery Device VENTILATOR Blood Gas Ventilator Setting 16/500/PEEP5 Blood Gas Inspired Oxygen 50 % Imaging Last Impressions Chest X-Ray 12/24/17 0600 Signed Impressions: Service Date/Time: Sunday, December 24, 2017 04:53 - CONCLUSION: Persistent dense consolidation right upper lobe and a new small area of consolidation in the left lower lobe. Yomi Lopez MD CT Angiography 12/16/17 0000 Signed Impressions: Service Date/Time: Saturday, December 16, 2017 13:49 - CONCLUSION: 1. Negative for pulmonary emboli. 2. Dense consolidation in the lungs especially the lung bases with several cavitary lesions as above. Findings are most characteristic of pneumonia. Cannot exclude septic embolic disease. No significant effusion. Malachi Hardin MD Objective Remarks GENERAL: 47-year-old female currently in roto-prone bed orotracheally intubated SKIN: Warm and dry. HEAD: Normocephalic. EYES: No scleral icterus. No injection or drainage. ENT: Orotracheally intubated NECK: Supple, trachea midline. Left IJ CVL CARDIOVASCULAR: Currently normal sinus rhythm. RRR. RESPIRATORY: Posterior lung [place] equal breath bilaterally. Bilateral coarse rhonchi and wheezes. GASTROINTESTINAL: Abdomen soft, non-tender, nondistended. MUSCULOSKELETAL: No significant peripheral edema NEURO: Intubated heavily sedated on neuromuscular paralysis which limits neuro exam Date of Insertion: Dec 20, 2017 Line: Central Venous Catheter Side: Left Location: Internal, Jugular A/P Problem List: (1) Sepsis ICD Code: A41.9 - Sepsis, unspecified organism Status: Acute (2) Sepsis due to methicillin resistant Staphylococcus aureus (MRSA) ICD Code: A41.02 - Sepsis due to Methicillin resistant Staphylococcus aureus (3) Acute hypoxemic respiratory failure ICD Code: J96.01 - Acute respiratory failure with hypoxia (4) ARDS (adult respiratory distress syndrome) ICD Code: J80 - Acute respiratory distress syndrome (5) Cavitating pneumonia (6) 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 Patient at risk for CIM however extremely hypoxic with severe ARDS now requiring prone ventilation UDS: + benzos, cannabinoids Acetaminophen 650 mg liquid by tube every 6 hours as needed fever Respiratory: Acute hypoxemic respiratory failure ARDS Small right Pneumothorax Pneumomediastinum Hemoptysis by history Pulmonary cavitary lesions ACV 16/500/10/60, prone ventilation. Change prone cycles to 5 hour prone 1 hour supine, increase supine time in 24 hours Ventilator bundle. Albuterol/ipratropium aerosols every 4 hours with albuterol aerosols every 2 hours as needed dyspnea Budesonide 0.5/2 1 inhalation twice daily Methylprednisolone succinate 40 mg IV every [address] Tejeda pulmonology following No spontaneous breathing trials or sedation medication due to neuromuscular paralysis and high O2 requirements, proning 12/16 -CT Angio - extensive pneumomediastinum extending into neck and upper chest. Dense consolidation at both lung bases, air bronchograms , 2 cavitary lesions 12/16-bronchoscopy performed by Dr. Klein, no active sites noted for bleeding, moderate purulent mucus bilaterally noted 2 BAL samples sent CTS is following for Pneumomediastinum-per Dr. Guadarrama no intervention at this time. Cardiovascular: Paroxysmal atrial fibrillation Shock Bradycardic arrest SVT Probable infective endocarditis Status post CODE BLUE -likely respiratory induced Elevated troponin Dopamine now is at 5 mg/kg/min keep MAP>65mmHg. Wean as tolerated On sotalol 40 mg twice daily by Dr. Bray 12/19 Monitor HR and BP keep MAP>65mmHg Transesophageal echocardiogram 12/20 revealed no signs of endocarditis. Preserved LV function. Trace MR/TR Echo 12/17 showed EF 60-65% Echo 12/21 EF 50%. Cannot rule out regional wall motion and ability Troponin currently 1.26 and downward trending Aspirin 81 mg p.o. daily FEN/Renal: Hypernatremia Monitor renal function Electrolytes replacement per protocol. Continue Lasix 40mg Q12. Diuresis to dry weight GI: Elevated AST and alkaline phosphatase Hypoalbuminemia On tube feeds-change to Glucerna 1.5 with goal rate 55ml/hr Famotidine 20 mg twice daily GI prophylaxis Docusate sodium/senna 1 tablet twice daily for bowel regimen ID: MRSA Bacteremia Severe sepsis MRSA pneumonia ABX per ID: Continue daptomycin 500 mg IV every 24 hours and ceftaroline 600 mg IV every 12 hours meropenem 1 g IV every 8 hours 12/21 JEANINE revealed no signs of endocarditis 12/20 12/15 [facility] from [facility]- MRSA 12/16 Bronch BAL- MRSA [facility] 12/16, 12/17 12/18: MRSA Blood culture 12/19 no growth 12/20 sputum/12/21 BAL MRSA influenza, pneumococcal and Legionella antigens- Negative Heme: Leukocytosis Normocytic anemia Monitor CBC. 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 Needs brain imaging in future when stable Sliding scale insulin Accu-Cheks every 6 hours to maintain euglycemia/medium regimen and Levemir insulin 8 units subcu twice daily Low free T3 and T4 on levothyroxine 25 mcg daily with low T4. 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 Its more appropriate to work up when she is over the critical illness Prophylaxis: GI Prophylaxis Famotidine IV DVT Prophylaxis -- SCDs -heparin SQ Lines: Left IJ CVL placed 12/21 Left radial arterial line placed 12/21 by respiratory therapy Critical Care: The total critical care time was 32 minutes. Time to perform other separately billable procedures was not included in the critical care time. Remains critically ill requiring prone ventilation FiO2 remains at 45, PEEP of 10. Remains on dopamine 5 mcg/kg/min. patient is critical but stable with slight improvement Problem Qualifiers (1) Sepsis: Qualified Codes: A41.9 - Sepsis, unspecified organism Maribel Pal MD Dec 26, 2017 13:13
--- NOTE | 2017-12-26 14:10 | HHI.IDPN ---
Subjective Subjective Remarks Patient is a 47-year-old female, who initially presented to the [facility] ED complaining of 4 day history of chest pain and shortness of breath. In have any other history. She was apparently coughing and was bringing up some brownish phlegm. There was no mention of any fever or chills. No nausea or vomiting. No urinary complaints. Chest x-ray showed bilateral patchy basilar infiltrates. CTA did not show any pulmonary embolism, showed bilateral infiltrates with some cavitary lesions noted. She was transferred to the main hospital, and she apparently had some blood in the sputum. She ended up getting intubated. [facility] did bronchoscopy on her. Patient currently sedated postintubation. Her blood pressure is okay and she is not hypotensive. She is tachycardic. Infectious disease consultation has been requested to evaluate the patient with pneumonia Notes reviewed On rotaprone bed On sedation and nimbex Also on dopamine Vent FiO2 down to 50% All BC with MRSA 12/15-12/18 No new (+) BC Bronch C/S MRSA WBC stable Started on solumedrol 12/20 JEANINE no vegetation Antibiotics [facility] Current Medications Medications (Trade) Dose Ordered Sig/Marily Route Start Time Stop Time Status Last Admin (NS Flush) 2 ml UNSCH PRN IV FLUSH 12/15/17 22:30 (NS Flush) 2 ml BID IV FLUSH 12/16/17 09:00 12/26/17 08:11 (Robitussin Dm 200-20 Mg/10 ml Liq) 10 ml Q4H PRN PO 12/15/17 22:30 Future Hold (Heparin Inj) 5,000 units Q8H SQ 12/16/17 12:00 12/26/17 12:25 (Morphine Inj) 1 mg Q4H PRN IM 12/16/17 09:15 Future Hold 12/16/17 10:11 (Mucinex Er) 600 mg BID PO 12/16/17 09:15 Future Hold 12/16/17 10:51 Propofol 100 ml @ 2.1 mls/hr TITRATE PRN IV 12/16/17 14:45 12/26/17 10:50 Fentanyl Citrate 250 ml @ 5 mls/hr TITRATE PRN IV 12/16/17 16:30 12/26/17 03:16 (Pepcid Inj) 20 mg Q12H IV PUSH 12/16/17 17:00 12/26/17 03:41 Miscellaneous Information 1 Q361D XX 12/16/17 16:45 (Chlorhexidine 2% Cloth) Taper DAILY@04 TOP 12/17/17 04:00 12/13/18 03:59 12/25/17 03:10 (Chlorhexidine 2% Cloth) 3 pack UNSCH PRN TOP 12/16/17 16:45 (Milk Of Magnesia Liq) 30 ml Q12H PRN PO 12/16/17 16:45 (Senokot) 17.2 mg Q12H PRN PO 12/16/17 16:45 (Dulcolax Supp) 10 mg DAILY PRN RECTAL 12/16/17 16:45 (Lactulose Liq) 30 ml DAILY PRN PO 12/16/17 16:45 (Peridex 0.12% Liq) 15 ml BID@08,20 MT 12/16/17 20:00 12/26/17 08:10 Midazolam HCl 100 ml @ 2 mls/hr TITRATE PRN IV 12/16/17 17:30 12/26/17 03:41 Potassium Chloride 100 ml @ 50 mls/hr Q2H PRN IV 12/17/17 07:45 Potassium Chloride 100 ml @ 50 mls/hr Q2H PRN IV 12/17/17 07:45 (K-Lyte Cl Eff) 50 meq UNSCH PRN PO 12/17/17 07:45 Potassium Chloride 100 ml @ 25 mls/hr UNSCH PRN IV 12/17/17 07:45 Potassium Chloride 100 ml @ 50 mls/hr Q2H PRN IV 12/17/17 07:45 Magnesium Sulfate 4 gm/Sodium Chloride 100 ml @ 50 mls/hr UNSCH PRN IV 12/17/17 07:45 (Mag-Ox) 800 mg UNSCH PRN PO 12/17/17 07:45 Magnesium Sulfate 2 gm/Sodium Chloride 100 ml @ 50 mls/hr UNSCH PRN IV 12/17/17 07:45 (K-Phos) 2,000 mg Q4H PRN PO 12/17/17 07:45 12/17/17 23:49 Sodium Phosphate 30 mmol/Sodium Chloride 250 ml @ 42 mls/hr UNSCH PRN IV 12/17/17 07:45 12/18/17 08:40 (K-Phos) 2,000 mg UNSCH PRN PO/TUBE 12/17/17 07:45 Potassium Phosphate 30 mmol/ Sodium Chloride 260 ml @ 42 mls/hr UNSCH PRN IV 12/17/17 07:45 12/19/17 07:57 Ceftaroline Fosamil 600 mg/ Sodium Chloride 100 ml @ 100 mls/hr Q12H IV 12/19/17 10:00 12/26/17 09:16 Daptomycin 500 mg/ Sodium Chloride 100 ml @ 200 mls/hr Q24H IV 12/19/17 12:00 12/26/17 12:24 Dopamine HCl/ Dextrose 500 ml @ 0 mls/hr TITRATE PRN IV 12/21/17 03:00 12/25/17 16:40 (Brethine Inj) 1 mg UNSCH PRN SQ 12/21/17 03:00 Cisatracurium Besylate 100 mg/ Sodium Chloride 260 ml @ 11.62 mls/ hr TITRATE PRN IV 12/21/17 08:30 12/26/17 09:17 (Albuterol Neb) 2.5 mg Q2HR NEB PRN NEB 12/21/17 08:30 12/26/17 07:12 (Pulmicort Respule Neb) 0.5 mg Q12HR NEB NEB 12/21/17 20:00 12/26/17 07:11 (NS Flush) DAILY IV FLUSH 12/22/17 09:00 12/26/17 08:12 (NS Flush) UNSCH PRN IV FLUSH 12/21/17 09:15 (Bactroban Nasal 2% Oint) 1 applic Taper BID EACH NARE 12/21/17 21:00 12/17/18 20:59 12/26/17 08:10 (Lacrilube Opht Oint) 1 applic Q12HR EACH EYE 12/21/17 10:00 12/26/17 08:12 (D50w (Vial) Inj) 50 ml UNSCH PRN IV PUSH 12/21/17 09:15 (Glucagon Inj) 1 mg UNSCH PRN OTHER 12/21/17 09:15 (NovoLIN R SUPPLEMENTAL SCALE) 1 Q6HR SQ 12/21/17 12:00 12/26/17 13:11 (Tylenol 650 Mg/ 20 ml Liq) 650 mg Q6H PRN NG 12/21/17 09:30 12/22/17 16:14 Epoprostenol Sodium 75 ml/ Sodium Chloride 100 ml @ 5 mls/hr Q8H NEB 12/21/17 10:00 12/26/17 10:50 (Betapace) 40 mg Q12HR PEG 12/21/17 21:00 12/26/17 08:10 (Pill Splitter) 1 ea UNSCH PRN OTHER 12/21/17 21:00 (Aspirin Chew) 81 mg DAILY CHEW 12/22/17 09:00 12/26/17 08:11 (Cathflo Activase Inj) 2 mg Q2H PRN INTRACATH 12/22/17 14:15 12/22/17 14:37 (Synthroid) 25 mcg DAILY@0600 PO 12/23/17 06:00 12/26/17 04:53 (Colace Liq) 100 mg Q12HR NG 12/23/17 21:00 12/26/17 08:11 (Senna Liq) 8.8 mg BID NG 12/23/17 21:00 12/26/17 08:11 (Miralax) 17 gm BID NG 12/23/17 21:00 12/26/17 08:11 (Lactulose Liq) 30 ml QID PO 12/23/17 13:00 12/26/17 12:25 (Levemir Inj) 8 units Q12HR SQ 12/23/17 21:00 12/26/17 08:13 (Lasix Inj) 40 mg BID@18 IV PUSH 12/24/17 09:00 12/26/17 08:12 (Reglan Inj) 5 mg Q8H PRN IV PUSH 12/24/17 17:45 12/25/17 20:54 (SoluMEDROL INJ) 40 mg Q8H IV PUSH 12/25/17 10:00 12/26/17 09:15 (Duoneb Neb) 1 ampule Q4HR NEB NEB 12/26/17 16:00 Lines LIJ TLC - 12/21 Past Medical History Anxiety Past Surgical History Cholecystectomy Hysterectomy Allergies: Coded Allergies: No Known Allergies (Unverified , 12/15/17) Objective . Vital Signs Date Time Temp Pulse Resp B/P (MAP) Pulse Ox O2 Delivery O2 Flow Rate FiO2 12/26/17 12:52 92 50 12/26/17 12:00 45 12/26/17 12:00 98.9 67 16 105/52 (69) 88 70/68 (69) 12/26/17 12:00 67 105/52 (69) 70/68 (69) 12/26/17 12:00 67 12/26/17 10:00 61 12/26/17 08:00 58 108/53 (71) 114/56 (75) 12/26/17 08:00 45 12/26/17 08:00 98.8 58 11 108/53 (71) 94 114/56 (75) 12/26/17 08:00 59 12/26/17 07:12 95 45 12/26/17 06:44 95 45 12/26/17 06:00 56 12/26/17 04:00 45 12/26/17 04:00 57 120/61 (80) 114/68 (83) 12/26/17 04:00 57 12/26/17 04:00 98.7 57 16 120/61 (80) 94 114/68 (83) 12/26/17 02:24 95 45 12/26/17 02:00 57 12/26/17 00:00 61 145/78 (100) 149/67 (94) 12/26/17 00:00 98.5 61 16 145/78 (100) 95 149/67 (94) 12/26/17 00:00 61 12/26/17 00:00 45 12/25/17 22:32 96 45 12/25/17 22:00 56 12/25/17 20:00 68 12/25/17 20:00 68 108/53 (71) 127/61 (83) 12/25/17 20:00 45 12/25/17 20:00 99.4 68 16 108/53 (71) 94 127/61 (83) 12/25/17 19:45 45 12/25/17 19:30 73 108/53 12/25/17 18:00 58 12/25/17 17:00 63 12/25/17 16:40 61 124/51 12/25/17 16:00 60 12/25/17 16:00 63 138/67 (90) 125/55 (78) 12/25/17 16:00 63 12 138/67 (90) 96 125/55 (78) 12/25/17 16:00 63 12/25/17 15:00 62 16 124/55 (78) 97 12/25/17 15:00 62 . Laboratory Tests Test 12/25/17 03:40 12/26/17 03:47 White Blood Count 24.9 TH/MM3 24.7 TH/MM3 Red Blood Count 4.07 MIL/MM3 4.24 MIL/MM3 Hemoglobin 12.0 GM/DL 12.2 GM/DL Hematocrit 35.6 % 36.7 % Mean Corpuscular Volume 87.4 FL 86.5 FL Mean Corpuscular Hemoglobin 29.5 PG 28.9 PG Mean Corpuscular Hemoglobin Concent 33.8 % 33.4 % Red Cell Distribution Width 12.6 % 12.9 % Platelet Count 447 TH/MM3 518 TH/MM3 Mean Platelet Volume 8.2 FL 8.0 FL Neutrophils (%) (Auto) 93.5 % 93.2 % Lymphocytes (%) (Auto) 3.6 % 2.4 % Monocytes (%) (Auto) 2.8 % 4.1 % Eosinophils (%) (Auto) 0.0 % 0.2 % Basophils (%) (Auto) 0.1 % 0.1 % Neutrophils # (Auto) 23.3 TH/MM3 23.0 TH/MM3 Lymphocytes # (Auto) 0.9 TH/MM3 0.6 TH/MM3 Monocytes # (Auto) 0.7 TH/MM3 1.0 TH/MM3 Eosinophils # (Auto) 0.0 TH/MM3 0.0 TH/MM3 Basophils # (Auto) 0.0 TH/MM3 0.0 TH/MM3 CBC Comment AUTO DIFF AUTO DIFF Differential Comment AUTO DIFF CONFIRMED FINAL DIFF MANUAL Differential Total Cells Counted 100 Neutrophils % (Manual) 79 % Band Neutrophils % 11 % Lymphocytes % 4 % Monocytes % 5 % Neutrophils # (Manual) 22.5 TH/MM3 Metamyelocytes 1 % Toxic Granulation 1+ Platelet Estimate HIGH Platelet Morphology Comment NORMAL Laboratory Tests Test 12/25/17 03:40 12/26/17 03:47 Blood Urea Nitrogen 32 MG/DL 32 MG/DL Creatinine 0.64 MG/DL 0.67 MG/DL Random Glucose 186 MG/DL 186 MG/DL Total Protein 5.7 GM/DL Calcium Level 7.4 MG/DL 7.5 MG/DL Phosphorus Level 3.3 MG/DL 2.7 MG/DL Magnesium Level 2.3 MG/DL 2.2 MG/DL Sodium Level 143 MEQ/L 144 MEQ/L Potassium Level 4.1 MEQ/L 4.0 MEQ/L Chloride Level 105 MEQ/L 104 MEQ/L Carbon Dioxide Level 30.7 MEQ/L 34.7 MEQ/L Anion Gap 7 MEQ/L 5 MEQ/L Estimat Glomerular Filtration Rate 100 ML/MIN 95 ML/MIN Protein Corrected Calcium 8.2 MG/DL Imaging Last Impressions Chest X-Ray 12/24/17599 Signed Impressions: Service Date/Time: Sunday, December 24, 2017 04:53 - CONCLUSION: Persistent dense consolidation right upper lobe and a new small area of consolidation in the left lower lobe. Yomi Lopez MD CT Angiography 12/16/17 Signed Impressions: Service Date/Time: Saturday, December 16, 2017 13:49 - CONCLUSION: 1. Negative for pulmonary emboli. 2. Dense consolidation in the lungs especially the lung bases with several cavitary lesions as above. Findings are most characteristic of pneumonia. Cannot exclude septic embolic disease. No significant effusion. Malachi Hardin MD Chest X-Ray 12/17/17599 Signed Impressions: Service Date/Time: Sunday, December 17, 2017 03:12 - CONCLUSION: Unchanged bilateral infiltrates. Yomi Shipley Jr., MD Chest X-Ray 12/16/17 Signed Impressions: Service Date/Time: Saturday, December 16, 2017 16:35 - CONCLUSION: 1. No significant pneumothorax identified on plain film post bronchoscopy. Endotracheal tube and basilar airspace disease not significantly changed. Malachi Hardin MD Chest X-Ray 12/16/17 Signed Impressions: Service Date/Time: Saturday, December 16, 2017 15:22 - CONCLUSION: 1. Endotracheal tube in good position. Extensive pneumomediastinum. Dense consolidation in the lungs. Malachi Hardin MD CT Angiography 12/16/17 Signed Impressions: Service Date/Time: Saturday, December 16, 2017 13:49 - CONCLUSION: 1. Negative for pulmonary emboli. 2. Dense consolidation in the lungs especially the lung bases with several cavitary lesions as above. Findings are most characteristic of pneumonia. Cannot exclude septic embolic disease. No significant effusion. Malachi Hardin MD Physical Exam GENERAL: Sedated, on paralytics, on rotaprone bed. SKIN: Warm and dry. No rash on the back. EYES: [place] conjunctiva. No petechia or hemorrhage. Pupils equal, round and reactive to light. No scleral icterus. No injection or drainage. EARS, NOSE AND THROAT: Nose without bleeding or purulent nasal discharge. She is orally intubated. NECK: Trachea midline. Supple and not tender, no meningeal signs CARDIOVASCULAR: Tachycardic RESPIRATORY: Diffuse rhonchi EXTREMITIES: has edema NEUROLOGICAL: Sedated, and on paralytics PSYCHIATRIC: Unable to assess LINE: No evidence of infection Assessment & Plan Remarks IMPRESSION Sepsis present, high grade, on admission, has MRSA on blood cultures - S/P arrest Bilateral pneumonia, some with cavitation - C/S with MRSA - CXR worse Very worrisome for endocarditis - clinically , but JEANINE negative Respiratory failure. worsening infiltrates, PNA, ?ARDS Leukocytosis, persistent RECOMMENDATION Follow new cultures and adjust antibiotics Stop Cubicin restart IV vanco Continue Teflaro Follow temps Monitor progress I will be off December 27- Other ID MD covering in my absence Liliam Su MD Dec 26, 2017 14:10
[2017-12-26] MEDS ORDERED: Vancomycin Consult Pharmacy 1 EA OTHER SCH (14:15)
[2017-12-26] MEDS ORDERED: VANCOMYCIN INJ 1,500 MG in SODIUM CHLORID 0.9% 500 ML INJ 500 ML IV ONE (15:00)
[2017-12-26] MEDS: RESP: ALBUTEROL 2.5 MG/IPRATROPIUM 0.5 MG NEB (SCH) NEB ×3 (15:42→23:31)
--- NOTE | 2017-12-26 16:02 | HHI.PR ---
Subjective Remarks on the ventilator sedated Objective Vital Signs Date Time Temp Pulse Resp B/P (MAP) Pulse Ox O2 Delivery O2 Flow Rate FiO2 12/26/17 14:00 65 12/26/17 12:52 92 50 12/26/17 12:00 45 12/26/17 12:00 98.9 67 16 105/52 (69) 88 70/68 (69) 12/26/17 12:00 67 105/52 (69) 70/68 (69) 12/26/17 12:00 67 12/26/17 10:00 61 12/26/17 08:00 58 108/53 (71) 114/56 (75) 12/26/17 08:00 45 12/26/17 08:00 98.8 58 11 108/53 (71) 94 114/56 (75) 12/26/17 08:00 59 12/26/17 07:12 95 45 12/26/17 06:44 95 45 12/26/17 06:00 56 12/26/17 04:00 45 12/26/17 04:00 57 120/61 (80) 114/68 (83) 12/26/17 04:00 57 12/26/17 04:00 98.7 57 16 120/61 (80) 94 114/68 (83) 12/26/17 02:24 95 45 12/26/17 02:00 57 12/26/17 00:00 61 145/78 (100) 149/67 (94) 12/26/17 00:00 98.5 61 16 145/78 (100) 95 149/67 (94) 12/26/17 00:00 61 12/26/17 00:00 45 12/25/17 22:32 96 45 12/25/17 22:00 56 12/25/17 20:00 68 12/25/17 20:00 68 108/53 (71) 127/61 (83) 12/25/17 20:00 45 12/25/17 20:00 99.4 68 16 108/53 (71) 94 127/61 (83) 12/25/17 19:45 45 12/25/17 19:30 73 108/53 12/25/17 18:00 58 12/25/17 17:00 63 12/25/17 16:40 61 124/51 I/O 12/25/17 12/25/17 12/25/17 12/26/17 12/26/17 12/26/17 07:00 15:00 23:00 07:00 15:00 23:00 Intake Total 1149 ml 660 ml 2207 ml 1050 ml Output Total 3650 ml 4800 ml 3300 ml Balance -2501 ml 660 ml -2593 ml -2250 ml IV Total 910 ml 660 ml 1670 ml 710 ml Tube Feeding 119 ml 337 ml 220 ml Other 120 ml 200 ml 120 ml Output Urine Total 2650 ml 4000 ml 2400 ml Stool Total 1000 ml 800 ml 900 ml Result Diagram: 12/26/17 03412/26/17 0347 Procedures BiPAP Objective Remarks GENERAL: sedated on vent support SKIN: Warm and dry. HEAD: Atraumatic. Normocephalic. EYES: Pupils equal and round. No scleral icterus. No injection or drainage. ENT: No nasal bleeding or discharge. Mucous membranes pink and moist. NECK: Trachea midline. No JVD. CARDIOVASCULAR: Regular rate and rhythm. RESPIRATORY: No accessory muscle use. Clear to auscultation. Breath sounds equal bilaterally. GASTROINTESTINAL: Abdomen soft, non-tender, nondistended. Hepatic and splenic margins not palpable. MUSCULOSKELETAL: Extremities without clubbing, cyanosis, or edema. No obvious deformities. NEUROLOGICAL: Awake and alert. No obvious cranial nerve deficits. Motor grossly within normal limits. Five out of 5 muscle strength in the arms and legs. Normal speech. PSYCHIATRIC: Appropriate mood and affect; insight and judgment normal. Assessment and Plan Assessment and Plan imp: respiratory failure/ARDS pna, FIO2 DOWN TO 50% plan vent support pulm toilet wean as tolerated Ileana Tejeda MD Dec 26, 2017 16:02
[2017-12-26] MEDS: METOCLOPRAMIDE HCL 10 MG/2 ML VIAL IV PUSH PRN (17:28)
--- NOTE | 2017-12-26 18:48 | PD.CARD.PN ---
Subjective Subjective Remarks Intubated, sedated, no a fib, still hypotensive requiring dopamine, on 50% O2 Objective Medications Current Medications Medications (Trade) Dose Ordered Sig/Marily Route Start Time Stop Time Status Last Admin (NS Flush) 2 ml UNSCH PRN IV FLUSH 12/15/17 22:30 (NS Flush) 2 ml BID IV FLUSH 12/16/17 09:00 12/26/17 08:11 (Robitussin Dm 200-20 Mg/10 ml Liq) 10 ml Q4H PRN PO 12/15/17 22:30 Future Hold (Heparin Inj) 5,000 units Q8H SQ 12/16/17 12:00 12/26/17 12:25 (Morphine Inj) 1 mg Q4H PRN IM 12/16/17 09:15 Future Hold 12/16/17 10:11 (Mucinex Er) 600 mg BID PO 12/16/17 09:15 Future Hold 12/16/17 10:51 Propofol 100 ml @ 2.1 mls/hr TITRATE PRN IV 12/16/17 14:45 12/26/17 14:37 Fentanyl Citrate 250 ml @ 5 mls/hr TITRATE PRN IV 12/16/17 16:30 12/26/17 14:38 (Pepcid Inj) 20 mg Q12H IV PUSH 12/16/17 17:00 12/26/17 16:19 Miscellaneous Information 1 Q361D XX 12/16/17 16:45 (Chlorhexidine 2% Cloth) Taper DAILY@04 TOP 12/17/17 04:00 12/13/18 03:59 12/25/17 03:10 (Chlorhexidine 2% Cloth) 3 pack UNSCH PRN TOP 12/16/17 16:45 (Milk Of Magnesia Liq) 30 ml Q12H PRN PO 12/16/17 16:45 (Senokot) 17.2 mg Q12H PRN PO 12/16/17 16:45 (Dulcolax Supp) 10 mg DAILY PRN RECTAL 12/16/17 16:45 (Lactulose Liq) 30 ml DAILY PRN PO 12/16/17 16:45 (Peridex 0.12% Liq) 15 ml BID@08,20 MT 12/16/17 20:00 12/26/17 08:10 Midazolam HCl 100 ml @ 2 mls/hr TITRATE PRN IV 12/16/17 17:30 12/26/17 17:55 Potassium Chloride 100 ml @ 50 mls/hr Q2H PRN IV 12/17/17 07:45 Potassium Chloride 100 ml @ 50 mls/hr Q2H PRN IV 12/17/17 07:45 (K-Lyte Cl Eff) 50 meq UNSCH PRN PO 12/17/17 07:45 Potassium Chloride 100 ml @ 25 mls/hr UNSCH PRN IV 12/17/17 07:45 Potassium Chloride 100 ml @ 50 mls/hr Q2H PRN IV 12/17/17 07:45 Magnesium Sulfate 4 gm/Sodium Chloride 100 ml @ 50 mls/hr UNSCH PRN IV 12/17/17 07:45 (Mag-Ox) 800 mg UNSCH PRN PO 12/17/17 07:45 Magnesium Sulfate 2 gm/Sodium Chloride 100 ml @ 50 mls/hr UNSCH PRN IV 12/17/17 07:45 (K-Phos) 2,000 mg Q4H PRN PO 12/17/17 07:45 12/17/17 23:49 Sodium Phosphate 30 mmol/Sodium Chloride 250 ml @ 42 mls/hr UNSCH PRN IV 12/17/17 07:45 12/18/17 08:40 (K-Phos) 2,000 mg UNSCH PRN PO/TUBE 12/17/17 07:45 Potassium Phosphate 30 mmol/ Sodium Chloride 260 ml @ 42 mls/hr UNSCH PRN IV 12/17/17 07:45 12/19/17 07:57 Ceftaroline Fosamil 600 mg/ Sodium Chloride 100 ml @ 100 mls/hr Q12H IV 12/19/17 10:00 12/26/17 09:16 Dopamine HCl/ Dextrose 500 ml @ 0 mls/hr TITRATE PRN IV 12/21/17 03:00 12/25/17 16:40 (Brethine Inj) 1 mg UNSCH PRN SQ 12/21/17 03:00 Cisatracurium Besylate 100 mg/ Sodium Chloride 260 ml @ 11.62 mls/ hr TITRATE PRN IV 12/21/17 08:30 12/26/17 14:48 (Albuterol Neb) 2.5 mg Q2HR NEB PRN NEB 12/21/17 08:30 12/26/17 07:12 (Pulmicort Respule Neb) 0.5 mg Q12HR NEB NEB 12/21/17 20:00 12/26/17 07:11 (NS Flush) DAILY IV FLUSH 12/22/17 09:00 12/26/17 08:12 (NS Flush) UNSCH PRN IV FLUSH 12/21/17 09:15 (Bactroban Nasal 2% Oint) 1 applic Taper BID EACH NARE 12/21/17 21:00 12/17/18 20:59 12/26/17 08:10 (Lacrilube Opht Oint) 1 applic Q12HR EACH EYE 12/21/17 10:00 12/26/17 08:12 (D50w (Vial) Inj) 50 ml UNSCH PRN IV PUSH 12/21/17 09:15 (Glucagon Inj) 1 mg UNSCH PRN OTHER 12/21/17 09:15 (NovoLIN R SUPPLEMENTAL SCALE) 1 Q6HR SQ 12/21/17 12:00 12/26/17 17:25 (Tylenol 650 Mg/ 20 ml Liq) 650 mg Q6H PRN NG 12/21/17 09:30 12/22/17 16:14 Epoprostenol Sodium 75 ml/ Sodium Chloride 100 ml @ 5 mls/hr Q8H NEB 12/21/17 10:00 12/26/17 10:50 (Betapace) 40 mg Q12HR PEG 12/21/17 21:00 12/26/17 08:10 (Pill Splitter) 1 ea UNSCH PRN OTHER 12/21/17 21:00 (Aspirin Chew) 81 mg DAILY CHEW 12/22/17 09:00 12/26/17 08:11 (Cathflo Activase Inj) 2 mg Q2H PRN INTRACATH 12/22/17 14:15 12/22/17 14:37 (Synthroid) 25 mcg DAILY@0600 PO 12/23/17 06:00 12/26/17 04:53 (Colace Liq) 100 mg Q12HR NG 12/23/17 21:00 12/26/17 08:11 (Senna Liq) 8.8 mg BID NG 12/23/17 21:00 12/26/17 08:11 (Miralax) 17 gm BID NG 12/23/17 21:00 12/26/17 08:11 (Lactulose Liq) 30 ml QID PO 12/23/17 13:00 12/26/17 17:24 (Levemir Inj) 8 units Q12HR SQ 12/23/17 21:00 12/26/17 08:13 (Lasix Inj) 40 mg BID@,18 IV PUSH 12/24/17 09:00 12/26/17 17:24 (Reglan Inj) 5 mg Q8H PRN IV PUSH 12/24/17 17:45 12/26/17 17:28 (SoluMEDROL INJ) 40 mg Q8H IV PUSH 12/25/17 10:00 12/26/17 17:24 (Duoneb Neb) 1 ampule Q4HR NEB NEB 12/26/17 16:00 12/26/17 15:42 Pharmacy Profile Note 0 ml @ 0 mls/hr UNSCH OTHER 12/26/17 14:15 Miscellaneous Information SPECIFIC LAB TO BE DRAWN:[facility] DATE TO... ONCE ONCE .XX 12/28/17 02:45 12/28/17 02:46 Vancomycin HCl 1500 mg/Sodium Chloride 515 ml @ 257.5 mls/ hr Q12H IV 12/27/17 03:00 Vital Signs / I&O Vital Signs Date Time Temp Pulse Resp B/P (MAP) Pulse Ox O2 Delivery O2 Flow Rate FiO2 12/26/17 18:00 65 12/26/17 16:00 50 12/26/17 16:00 98.0 60 16 126/68 (87) 97 149/74 (99) 12/26/17 16:00 60 12/26/17 16:00 60 126/68 (87) 149/74 (99) 12/26/17 14:45 97 50 12/26/17 14:00 65 12/26/17 12:52 92 50 12/26/17 12:00 45 12/26/17 12:00 98.9 67 16 105/52 (69) 88 70/68 (69) 12/26/17 12:00 67 105/52 (69) 70/68 (69) 12/26/17 12:00 67 12/26/17 10:00 61 12/26/17 08:00 58 108/53 (71) 114/56 (75) 12/26/17 08:00 45 12/26/17 08:00 98.8 58 11 108/53 (71) 94 114/56 (75) 12/26/17 08:00 59 12/26/17 07:12 95 45 12/26/17 06:44 95 45 12/26/17 06:00 56 12/26/17 04:00 45 12/26/17 04:00 57 120/61 (80) 114/68 (83) 12/26/17 04:00 57 12/26/17 04:00 98.7 57 16 120/61 (80) 94 114/68 (83) 12/26/17 02:24 95 45 12/26/17 02:00 57 12/26/17 00:00 61 145/78 (100) 149/67 (94) 12/26/17 00:00 98.5 61 16 145/78 (100) 95 149/67 (94) 12/26/17 00:00 61 12/26/17 00:00 45 12/25/17 22:32 96 45 12/25/17 22:00 56 12/25/17 20:00 68 12/25/17 20:00 68 108/53 (71) 127/61 (83) 12/25/17 20:00 45 12/25/17 20:00 99.4 68 16 108/53 (71) 94 127/61 (83) 12/25/17 19:45 45 12/25/17 19:30 73 108/53 I/O 12/25/17 12/25/17 12/25/17 12/26/17 12/26/17 12/26/17 07:00 15:00 23:00 07:00 15:00 23:00 Intake Total 1149 ml 660 ml 2207 ml 1050 ml 200 ml 308 ml Output Total 3650 ml 4800 ml 3300 ml 4310 ml Balance -2501 ml 660 ml -2593 ml -2250 ml 200 ml -4002 ml IV Total 910 ml 660 ml 1670 ml 710 ml 200 ml Tube Feeding 119 ml 337 ml 220 ml 308 ml Other 120 ml 200 ml 120 ml Output Urine Total 2650 ml 4000 ml 2400 ml 3350 ml Stool Total 1000 ml 800 ml 900 ml 960 ml Physical Exam GENERAL: Intubated, sedated, in Rotoprone SKIN: Warm and dry. HEAD: Normocephalic. EYES: No scleral icterus. No injection or drainage. NECK: Supple, trachea midline. No JVD or lymphadenopathy. CARDIOVASCULAR: Regular rate and rhythm without murmurs, gallops, or rubs. RESPIRATORY: Breath sounds equal bilaterally. No accessory muscle use. Bilat diffuse rhonchi. GASTROINTESTINAL: Abdomen soft, non-tender, nondistended. MUSCULOSKELETAL: No cyanosis, mild edema. Laboratory Laboratory Tests Test 12/26/17 03:47 12/26/17 12:36 White Blood Count 24.7 TH/MM3 Red Blood Count 4.24 MIL/MM3 Hemoglobin 12.2 GM/DL Hematocrit 36.7 % Mean Corpuscular Volume 86.5 FL Mean Corpuscular Hemoglobin 28.9 PG Mean Corpuscular Hemoglobin Concent 33.4 % Red Cell Distribution Width 12.9 % Platelet Count 518 TH/MM3 Mean Platelet Volume 8.0 FL Neutrophils (%) (Auto) 93.2 % Lymphocytes (%) (Auto) 2.4 % Monocytes (%) (Auto) 4.1 % Eosinophils (%) (Auto) 0.2 % Basophils (%) (Auto) 0.1 % Neutrophils # (Auto) 23.0 TH/MM3 Lymphocytes # (Auto) 0.6 TH/MM3 Monocytes # (Auto) 1.0 TH/MM3 Eosinophils # (Auto) 0.0 TH/MM3 Basophils # (Auto) 0.0 TH/MM3 CBC Comment AUTO DIFF Differential Total Cells Counted 100 Neutrophils % (Manual) 79 % Band Neutrophils % 11 % Lymphocytes % 4 % Monocytes % 5 % Neutrophils # (Manual) 22.5 TH/MM3 Metamyelocytes 1 % Differential Comment FINAL DIFF MANUAL Toxic Granulation 1+ Platelet Estimate HIGH Platelet Morphology Comment NORMAL Blood Urea Nitrogen 32 MG/DL Creatinine 0.67 MG/DL Random Glucose 186 MG/DL Calcium Level 7.5 MG/DL Phosphorus Level 2.7 MG/DL Magnesium Level 2.2 MG/DL Sodium Level 144 MEQ/L Potassium Level 4.0 MEQ/L Chloride Level 104 MEQ/L Carbon Dioxide Level 34.7 MEQ/L Anion Gap 5 MEQ/L Estimat Glomerular Filtration Rate 95 ML/MIN Blood Gas Puncture Site ART LINE Blood Gas Patient Temperature 98.6 Blood Gas HCO3 33 mmol/L Blood Gas Base Excess 8.9 mmol/L Blood Gas Oxygen Saturation 91 % Arterial Blood pH 7.46 Arterial Blood Partial Pressure CO2 47 mmHg Arterial Blood Partial Pressure O2 70 mmHg Arterial Blood Oxygen Content 15.8 Vol % Arterial Blood Carboxyhemoglobin 0.8 % Arterial Blood Methemoglobin 1.3 % Blood Gas Hemoglobin 12.3 G/DL Oxygen Delivery Device VENTILATOR Blood Gas Ventilator Setting 16/500/PEEP5 Blood Gas Inspired Oxygen 50 % Imaging Last 24 hours Impressions Chest X-Ray 12/26/17 0000 Signed Impressions: Service Date/Time: Tuesday, December 26, 2017 02:37 - CONCLUSION: Stable appearance of the lungs with dense consolidation in the right upper lobe and patchy infiltrates in the central left lung. Yomi Lopez MD Assessment and Plan Problem List: (1) Sepsis due to methicillin resistant Staphylococcus aureus (MRSA) ICD Codes: A41.02 - Sepsis due to Methicillin resistant Staphylococcus aureus (2) ARDS (adult respiratory distress syndrome) ICD Codes: J80 - Acute respiratory distress syndrome (3) Bilateral pneumonia ICD Codes: J18.9 - Pneumonia, unspecified organism Status: Acute (4) Acute hypoxemic respiratory failure ICD Codes: J96.01 - Acute respiratory failure with hypoxia (5) Paroxysmal atrial fibrillation ICD Codes: I48.0 - Paroxysmal atrial fibrillation (6) Bradycardia ICD Codes: R00.1 - Bradycardia, unspecified Assessment and Plan Hypotensive, requiring dopamine. Stays in SR, no recurrent AF. Still has occasional episodes of bradycardia, likely respiratory related, possibly exacerbated by sotalol (started for a fib). Troponin elevated, but not trending in either direction. JEANINE with no evidence of endocarditis, LV fx preserved. Continue tx for pneumonia/sepsis. Continue current program with ICU care and vent support. Will DC sotalol due to bradycardia and hypotension, and continue monitoring for AF. Valorie Bray MD Dec 26, 2017 18:48
[2017-12-26] MEDS: DOPamine 800 MG/500 ML INJ 500 ML IV PRN (21:42)
[2017-12-27] VITALS (51 sets, daily range): BP systolic 70–190; BP diastolic 32–106; PULSE 47–87; RESP 15–27; TEMP 98–98.6; O2SAT 90–100
[2017-12-27] MEDS: METOCLOPRAMIDE HCL 10 MG/2 ML VIAL IV PUSH PRN (01:50)
[2017-12-27] MEDS: methylPREDNISolone SOD SUCC 40 MG/1 ML VIAL IV PUSH SCH ×3 (01:50→17:08)
[2017-12-27] MEDS: fentaNYL DRIP 250 ML IV PRN ×2 (01:51→14:54)
[2017-12-27] MEDS: CISATRACURIUM INJ 100 MG in SODIUM CHLOR 0.9% 250 ML INJ 250 ML IV PRN ×4 (03:00→20:00)
[2017-12-27] MEDS ORDERED: VANCOMYCIN INJ 1,250 MG in SODIUM CHLOR 0.9% 250 ML INJ 250 ML IV SCH (03:00)
[2017-12-27] MEDS: RESP: ALBUTEROL 2.5 MG/IPRATROPIUM 0.5 MG NEB (SCH) NEB ×4 (03:14→20:48)
[2017-12-27] MEDS: VANCOMYCIN 1,500 MG/NS 500 ML IV SCH ×4 (03:30→17:08)
[2017-12-27] MEDS: CHLORHEXIDINE GLUCONATE 2 % 1 PACK (2 CLOTHS) TOP SCH (03:30)
[2017-12-27] MEDS: PROPOFOL 1000 MG/100 ML INJ 100 ML IV PRN ×5 (03:54→22:21)
[2017-12-27] MEDS: HEPARIN SODIUM - SQ 10,000 UNITS/ML VIAL SQ SCH ×3 (04:21→20:01)
[2017-12-27] MEDS: FAMOTIDINE 20 MG/2 ML VIAL IV PUSH SCH ×2 (04:21→17:13)
[2017-12-27] MEDS: MIDAZOLAM 100 MG/100 ML INJ 100 ML IV PRN ×2 (04:23→19:59)
[2017-12-27 05:00] LABS: AUTOMATED NEUTROPHIL # 20.6 TH/MM3 (1.8-7.7); BASOPHIL # 0.1 TH/MM3 (0-0.2); BASOPHIL % 0.3 % (0.0-2.0); EOSINOPHIL # 0.1 TH/MM3 (0-0.4); EOSINOPHIL % 0.3 % (0.0-4.0); HEMATOCRIT 36.1 % (35.0-46.0); HEMOGLOBIN 12.2 GM/DL (11.6-15.3); LYMPH % 4.2 % (9.0-44.0); MEAN CELL VOLUME 87.1 FL (80.0-100.0); MEAN CORPUSCULAR HEMOGLOBIN 29.5 PG (27.0-34.0); MEAN CORPUSCULAR HGB CONC 33.9 % (32.0-36.0); MEAN PLATELET VOLUME 8.6 FL (7.0-11.0); MONO % 4.5 % (0.0-8.0); NEUT % 90.7 % (16.0-70.0); PLATELET COUNT 498 TH/MM3 (150-450); RED BLOOD COUNT 4.14 MIL/MM3 (4.00-5.30); RED CELL DISTRIBUTION WIDTH 12.7 % (11.6-17.2); WHITE BLOOD COUNT 22.7 TH/MM3 (4.0-11.0)
[2017-12-27 05:32] LABS: ALBUMIN 1.9 GM/DL (3.4-5.0); ALKALINE PHOSPHATASE 122 U/L (45-117); ALT (GPT) 43 U/L (10-53); AST (GOT) 41 U/L (15-37); BICARBONATE 34.4 MEQ/L (21.0-32.0); BLOOD UREA NITROGEN 29 MG/DL (7-18); CALCIUM 7.6 MG/DL (8.5-10.1); CHLORIDE 101 MEQ/L (98-107); CREATININE 0.63 MG/DL (0.50-1.00); GLOMERULAR FILTRATION RATE 102 ML/MIN (>89); GLUCOSE,RANDOM 158 MG/DL (74-106); MAGNESIUM 2.1 MG/DL (1.5-2.5); SODIUM (NA) 140 MEQ/L (136-145); TOTAL BILIRUBIN ADULT 0.4 MG/DL (0.2-1.0); TOTAL PROTEIN 6.2 GM/DL (6.4-8.2)
[2017-12-27] MEDS: INSULIN NovoLIN REGULAR SUPPLEMENTAL SCALE SQ SCH ×4 (06:06→23:53)
[2017-12-27] MEDS: LEVOTHYROXINE SODIUM 25 MCG TAB PO SCH (06:06)
--- NOTE | 2017-12-27 06:18 | RADRPT ---
EXAM DATE/TIME: 12/27/2017 04:15 [place] COMPARISON: CHEST SINGLE AP, December 26, 2017, 2:37. INDICATIONS : Shortness of breath, possible pulmonary disease. MEDICAL HISTORY : Sepsis. Pneumonia SURGICAL HISTORY : None. ENCOUNTER: Subsequent ACUITY: 2 weeks PAIN SCORE: Non-responsive. LOCATION: Bilateral chest FINDINGS: ET tube tip well above the magdalena. Gastric tube traverses the [id number]. Left internal jugular catheter tip projects over the proximal superior vena cava. There is persisting consolidation in the right upper lobe with volume loss. Diffuse interstitial opacities in the left lung. CONCLUSION: Stable right upper lung consolidation. Yomi Lopez MD on December 27, 2017 at 6:16 Board Certified Radiologist. This report was verified electronically.
[2017-12-27] MEDS: RESP: BUDESONIDE 0.5 MG/2 ML NEB NEB SCH ×2 (07:28→20:48)
[2017-12-27] MEDS ORDERED: NOREPINEPHRINE INJ 4 MG in SODIUM CHLOR 0.9% 250 ML INJ 246 ML IV PRN (08:15)
[2017-12-27] MEDS ORDERED: TERBUTALINE INJ 1 MG/ML AMP SQ PRN (08:15)
--- NOTE | 2017-12-27 08:22 | HHI.CCPN ---
Subjective Remarks/Hospital Course This is a 47-year-old female with a history of anxiety disorder, that presented to [place] on with complaints of chest pain and dyspnea that has been lasting for the past 4 days. The patient was transferred to [facility]. Imaging and laboratory studies were initially performed which showed a chest x-ray with bilateral patchy airspace consolidation consistent with bronchial pneumonia, and her lactic acid level was noted to be 3.1. The patient's oxygen requirements continue to increase the patient became tachypneic with a respiratory rate in the 40s and tachycardic, heart rate in the 120s. Pulmonology was consulted, CT was performed which revealed no pulmonary emboli , will several cavitary lesions, dense consolidation at both lung bases, air bronchograms and extensive pneumomediastinum extending into the lower neck and upper chest .ICU was requested to see patient. Upon observation the patient was severely dyspneic, with significant accessory muscle movement, violently coughing hemoptysis. Decision made to intubate patient for airway protection. 12/17 Patient is sedated with Diprivan and versed infusion. afebrile. s/p bronch yesterday by Dr. Klein. 12/18 Patient remains sedated with Versed 10mg/hr and Fentanyl 250 mics. Tmax 102.1 yesterday. + MRSA in bronch and GPC/MRSA from [facility] 12/15 from [place] 12/19: Patient developed respiratory distress and SVT this am with vent dyssynchrony with air trapping and elevated peak pressure. FiO2 increased to 100%, started on Nimbex infusion. Intermittently tachycardic, occasional bradycardia also. EKG shows sinus rhythm. Patient is very critical now. Will consult cardiology for JEANINE, and also regarding SVT. Chest x-ray shows worsening bilateral infiltrates concerning for ARDS 12/20: Remains intubated heavily sedated and neuromuscularly paralyzed to maintain ventilator synchrony and control peak pressures. Chest x-ray shows persistent bilateral infiltrates. JEANINE planned for today. All cultures so far positive for MRSA. Tachy Arrhythmia is better controlled after starting sotalol 12/21: CODE BLUE overnight when patient became bradycardic. Received epinephrine with chest compressions with return of spontaneous relief within 5 minutes according to RN. Currently on peripheral dopamine at 10 mcg/kg/min. FiO2 currently at 100%. Chest x-ray revealed worsening diffuse bilateral pulmonary infiltrates 12/22: T-max 101.1 Fahrenheit. Currently 98.9 Fahrenheit. +2493 cc past 24 hours. No bowel movement. Currently on roto-prone bed on epoprostenol at 50, 000 ng/kg/min aerosolized. On tube feeds Glucerna 1.5 at 20 cc an hour. Subjective 12/23: Overnight, when switching from supine to prone position patient 32nd episode of asystole resolved without chest compressions. We are currently patient has been prone position again with very slow with and without. Tolerating tube feeds now. Remains on cisatracurium drip at 4 mcg/min 12/24 Patient remains sedated and intubated. On Diprivan, Fentanyl, Versed in addition to Nimbex and Dopamine @5mics. Afebrile. 12/25 No events overnight. Remains sedated, intubated and on Rotoprone bed. On Dopamine 5 mics and Nimbex. T:99.7 12/26: Remains critically ill remains on prone ventilation. I will change on time/supine time to prospectively 5 hours/1 hour cycles. Increase PEEP to 10 to facilitate prolonged weaning. CXR shows persistent consolidation RUL 12/27: Remains critical but oxygenation stable. Off dopamine but hypotensive now with map of 58. Start on Levophed to keep map above 65. Change prone/ supine cycles to 4 hours each. Discontinue prone therapy in the next 24 hours if stable. WBC count is slightly improved Objective Vital Signs Date Time Temp Pulse Resp B/P (MAP) Pulse Ox O2 Delivery O2 Flow Rate FiO2 12/27/17 07:29 94 45 12/27/17 06:00 78 12/27/17 04:00 101/55 (70) 108/48 (68) 12/27/17 04:00 98.6 16 12/25/17 10:33 Ventilator Intake and Output 12/27/17 12/27/17 12/28/17 08:00 16:00 00:00 Intake Total 1176 ml Output Total 3300 ml Balance -2124 ml Result Diagram: 12/27/17 0350 12/27/17 0350 Other Results Laboratory Tests Test 12/26/17 12:36 Blood Gas Puncture Site ART LINE Blood Gas Patient Temperature 98.6 Blood Gas HCO3 33 mmol/L (22-26) Blood Gas Base Excess 8.9 mmol/L (-2-2) Blood Gas Oxygen Saturation 91 % (90-100) Arterial Blood pH 7.46 (7.380-7.420) Arterial Blood Partial Pressure CO2 47 mmHg (38-42) Arterial Blood Partial Pressure O2 70 mmHg (61-120) Arterial Blood Oxygen Content 15.8 Vol % (12.0-20.0) Arterial Blood Carboxyhemoglobin 0.8 % (0-4) Arterial Blood Methemoglobin 1.3 % (0-2) Blood Gas Hemoglobin 12.3 G/DL (12.0-16.0) Oxygen Delivery Device VENTILATOR Blood Gas Ventilator Setting 16/500/PEEP5 Blood Gas Inspired Oxygen 50 % Imaging Last Impressions Chest X-Ray 12/24/17 0600 Signed Impressions: Service Date/Time: Sunday, December 24, 2017 04:53 - CONCLUSION: Persistent dense consolidation right upper lobe and a new small area of consolidation in the left lower lobe. Yomi Lopez MD CT Angiography 12/16/17 0000 Signed Impressions: Service Date/Time: Saturday, December 16, 2017 13:49 - CONCLUSION: 1. Negative for pulmonary emboli. 2. Dense consolidation in the lungs especially the lung bases with several cavitary lesions as above. Findings are most characteristic of pneumonia. Cannot exclude septic embolic disease. No significant effusion. Malachi Hardin MD Objective Remarks GENERAL: 47-year-old female currently in roto-prone bed orotracheally intubated SKIN: Warm and dry. HEAD: Normocephalic. EYES: No scleral icterus. No injection or drainage. ENT: Orotracheally intubated NECK: Supple, trachea midline. Left IJ CVL CARDIOVASCULAR: Currently normal sinus rhythm. RRR. RESPIRATORY: Anterior lung [place] equal breath bilaterally. Bilateral coarse rhonchi and wheezes. GASTROINTESTINAL: Abdomen soft, non-tender, nondistended. MUSCULOSKELETAL: No significant peripheral edema NEURO: Intubated heavily sedated on neuromuscular paralysis which limits neuro exam Date of Insertion: Dec 20, 2017 Line: Central Venous Catheter Side: Left Location: Internal, Jugular A/P Problem List: (1) Acute hypoxemic respiratory failure ICD Code: J96.01 - Acute respiratory failure with hypoxia (2) Septic shock due to methicillin resistant Staphylococcus aureus ICD Code: A41.02 - Sepsis due to Methicillin resistant Staphylococcus aureus; R65.21 - Severe sepsis with septic shock (3) Sepsis due to methicillin resistant Staphylococcus aureus (MRSA) ICD Code: A41.02 - Sepsis due to Methicillin resistant Staphylococcus aureus (4) ARDS (adult respiratory distress syndrome) ICD Code: J80 - Acute respiratory distress syndrome (5) Cavitating pneumonia (6) 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 Patient at risk for CIM however was extremely hypoxic with severe ARDS now requiring prone ventilation UDS: + benzos, cannabinoids Acetaminophen 650 mg liquid by tube every 6 hours as needed fever Respiratory: Acute hypoxemic respiratory failure ARDS Small right Pneumothorax Pneumomediastinum Hemoptysis by history Pulmonary cavitary lesions ACV 16/500/10/60, prone ventilation. Change prone cycles to 4 hour prone 4 hour supine, DC prone therapy in 24 hours if stable Ventilator bundle. Albuterol/ipratropium aerosols every 4 hours with albuterol aerosols every 2 hours as needed dyspnea Budesonide 0.5/2 1 inhalation twice daily Methylprednisolone succinate 40 mg IV every [address] Tejeda pulmonology following No spontaneous breathing trials or sedation medication due to neuromuscular paralysis and high O2 requirements, proning 12/16 -CT Angio - extensive pneumomediastinum extending into neck and upper chest. Dense consolidation at both lung bases, air bronchograms , 2 cavitary lesions 12/16-bronchoscopy performed by Dr. Klein, no active sites noted for bleeding, moderate purulent mucus bilaterally noted 2 BAL samples sent CTS is following for Pneumomediastinum-per Dr. Guadarrama no intervention at this time. Cardiovascular: Septic shock Bradycardic arrest Paroxysmal atrial fibrillation SVT Probable infective endocarditis Status post CODE BLUE -likely respiratory induced Elevated troponin Off Dopamine. Start Levophed to keep MAP>65mmHg. On sotalol 40 mg twice daily by Dr. Bray 12/19 Monitor HR and BP keep MAP>65mmHg Transesophageal echocardiogram 12/20 revealed no signs of endocarditis. Preserved LV function. Trace MR/TR Echo 12/17 showed EF 60-65% Echo 12/21 EF 50%. Cannot rule out regional wall motion and ability Troponin currently 1.26 and downward trending Aspirin 81 mg p.o. daily FEN/Renal: Hypernatremia Monitor renal function Electrolytes replacement per protocol. Continue Lasix 40mg Q12. Diuresis to dry weight GI: Elevated AST and alkaline phosphatase Hypoalbuminemia On tube feeds-change to Glucerna 1.5 with goal rate 55ml/hr Famotidine 20 mg twice daily GI prophylaxis Docusate sodium/senna 1 tablet twice daily for bowel regimen Having bowel movements ID: MRSA Bacteremia MRSA pneumonia Septic shock ABX per ID: Continue IV Vanc and ceftaroline 600 mg IV every 12 hours. Cubicin DCd 12/26 by ID JEANINE revealed no signs of endocarditis 12/20 12/15 [facility] from [place]- MRSA 12/16 Bronch BAL- MRSA [facility] 12/16, 12/17 12/18: MRSA Blood culture 12/19 no growth 12/20 sputum/12/21 BAL MRSA influenza, pneumococcal and Legionella antigens- Negative Heme: Leukocytosis Normocytic anemia Monitor CBC. 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 Needs brain imaging in future when stable Sliding scale insulin Accu-Cheks every 6 hours to maintain euglycemia/medium regimen and Levemir insulin 8 units subcu twice daily Low free T3 and T4 on levothyroxine 25 mcg daily with low T4. 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 Its more appropriate to work up when she is over the critical illness Prophylaxis: GI Prophylaxis Famotidine IV DVT Prophylaxis -- SCDs -heparin SQ Lines: Left IJ CVL placed 12/21 Left radial arterial line placed 12/21 by respiratory therapy Critical Care: The total critical care time was 32 minutes. Time to perform other separately billable procedures was not included in the critical care time. Remains critically ill requiring prone ventilation FiO2 remains at 45, PEEP of 10-reduced to 8. Remains in shock started on Levophed to maintain MAP>65 Maribel Pal MD Dec 27, 2017 08:22
[2017-12-27] MEDS: MUPIROCIN 2% OINT 1 APPLIC/GM SYR EACH NARE SCH ×2 (08:30→20:01)
[2017-12-27] MEDS: POLYETHYLENE GLYCOL 17 GM PKG NG SCH ×2 (08:30→19:58)
[2017-12-27] MEDS: LACTULOSE SYRUP 20 GM/30 ML CUP PO SCH ×4 (08:30→20:00)
[2017-12-27] MEDS: DOCUSATE SODIUM 100 MG/10 ML UDC NG SCH ×2 (08:30→19:59)
[2017-12-27] MEDS: FUROSEMIDE 40 MG/4 ML VIAL IV PUSH SCH ×2 (08:31→17:08)
[2017-12-27] MEDS: ARTIFICIAL TEARS OPTH OINT 3.5 APPLIC/3.5 GM TUBO EACH EYE SCH ×2 (08:31→20:01)
[2017-12-27] MEDS: SENNOSIDES SYRUP 8.8 MG/5 ML CUP NG SCH ×2 (08:31→20:00)
[2017-12-27] MEDS: INSULIN DETEMIR 100 UNITS/ML VIAL SQ SCH ×2 (08:31→20:01)
[2017-12-27] MEDS: ASPIRIN 81 MG CHEW TAB CHEW SCH (08:31)
[2017-12-27] MEDS: CHLORHEXIDINE 0.12% (ORAL KIT) 15 ML CUP MT SCH ×2 (08:32→20:01)
[2017-12-27] MEDS: SODIUM CHLORIDE 0.9% FLUSH 10 ML FLUSH IV FLUSH SCH ×3 (08:32→19:59)
[2017-12-27 09:25] LABS: BANDS 19 % (0-6); LYMPHOCYTES 9 % (9-44); MONOCYTES 8 % (0-8); MYELOCYTES 5 % (0-0); NEUTROPHIL # MANUAL DIFF 18.8 TH/MM3 (1.8-7.7); POLYS (SEG NEUTROPHILS) 59 % (16-70)
[2017-12-27] MEDS: CEFTAROLINE INJ 600 MG in SODIUM CHLORIDE 0.9% INJ 100 ML IV SCH (10:00)
[2017-12-27] MEDS: EPOPROSTENOL NEB SOLUTION 50 NG/KG/MIN 100 ML NEB SCH ×4 (10:01→19:59)
--- NOTE | 2017-12-27 13:33 | PD.CARD.PN ---
Subjective Subjective Remarks Intubated, sedated, no a fib, still hypotensive requiring pressors (now off sotalol) Objective Medications Current Medications Medications (Trade) Dose Ordered Sig/Marily Route Start Time Stop Time Status Last Admin (NS Flush) 2 ml UNSCH PRN IV FLUSH 12/15/17 22:30 (NS Flush) 2 ml BID IV FLUSH 12/16/17 09:00 12/27/17 08:32 (Robitussin Dm 200-20 Mg/10 ml Liq) 10 ml Q4H PRN PO 12/15/17 22:30 Future Hold (Heparin Inj) 5,000 units Q8H SQ 12/16/17 12:00 12/27/17 12:17 (Morphine Inj) 1 mg Q4H PRN IM 12/16/17 09:15 Future Hold 12/16/17 10:11 (Mucinex Er) 600 mg BID PO 12/16/17 09:15 Future Hold 12/16/17 10:51 Propofol 100 ml @ 2.1 mls/hr TITRATE PRN IV 12/16/17 14:45 12/27/17 08:56 Fentanyl Citrate 250 ml @ 5 mls/hr TITRATE PRN IV 12/16/17 16:30 12/27/17 01:51 (Pepcid Inj) 20 mg Q12H IV PUSH 12/16/17 17:00 12/27/17 04:21 Miscellaneous Information 1 Q361D XX 12/16/17 16:45 (Chlorhexidine 2% Cloth) Taper DAILY@04 TOP 12/17/17 04:00 12/13/18 03:59 12/27/17 03:30 (Chlorhexidine 2% Cloth) 3 pack UNSCH PRN TOP 12/16/17 16:45 (Milk Of Magnesia Liq) 30 ml Q12H PRN PO 12/16/17 16:45 (Senokot) 17.2 mg Q12H PRN PO 12/16/17 16:45 (Dulcolax Supp) 10 mg DAILY PRN RECTAL 12/16/17 16:45 (Lactulose Liq) 30 ml DAILY PRN PO 12/16/17 16:45 (Peridex 0.12% Liq) 15 ml BID@08,20 MT 12/16/17 20:00 12/27/17 08:32 Midazolam HCl 100 ml @ 2 mls/hr TITRATE PRN IV 12/16/17 17:30 12/27/17 04:23 Potassium Chloride 100 ml @ 50 mls/hr Q2H PRN IV 12/17/17 07:45 Potassium Chloride 100 ml @ 50 mls/hr Q2H PRN IV 12/17/17 07:45 (K-Lyte Cl Eff) 50 meq UNSCH PRN PO 12/17/17 07:45 Potassium Chloride 100 ml @ 25 mls/hr UNSCH PRN IV 12/17/17 07:45 Potassium Chloride 100 ml @ 50 mls/hr Q2H PRN IV 12/17/17 07:45 Magnesium Sulfate 4 gm/Sodium Chloride 100 ml @ 50 mls/hr UNSCH PRN IV 12/17/17 07:45 (Mag-Ox) 800 mg UNSCH PRN PO 12/17/17 07:45 Magnesium Sulfate 2 gm/Sodium Chloride 100 ml @ 50 mls/hr UNSCH PRN IV 12/17/17 07:45 (K-Phos) 2,000 mg Q4H PRN PO 12/17/17 07:45 12/17/17 23:49 Sodium Phosphate 30 mmol/Sodium Chloride 250 ml @ 42 mls/hr UNSCH PRN IV 12/17/17 07:45 12/18/17 08:40 (K-Phos) 2,000 mg UNSCH PRN PO/TUBE 12/17/17 07:45 Potassium Phosphate 30 mmol/ Sodium Chloride 260 ml @ 42 mls/hr UNSCH PRN IV 12/17/17 07:45 12/19/17 07:57 Ceftaroline Fosamil 600 mg/ Sodium Chloride 100 ml @ 100 mls/hr Q12H IV 12/19/17 10:00 12/27/17 10:00 Dopamine HCl/ Dextrose 500 ml @ 0 mls/hr TITRATE PRN IV 12/21/17 03:00 12/26/17 21:42 Cisatracurium Besylate 100 mg/ Sodium Chloride 260 ml @ 11.62 mls/ hr TITRATE PRN IV 12/21/17 08:30 12/27/17 08:55 (Albuterol Neb) 2.5 mg Q2HR NEB PRN NEB 12/21/17 08:30 12/26/17 07:12 (Pulmicort Respule Neb) 0.5 mg Q12HR NEB NEB 12/21/17 20:00 12/27/17 07:28 (NS Flush) DAILY IV FLUSH 12/22/17 09:00 12/27/17 08:32 (NS Flush) UNSCH PRN IV FLUSH 12/21/17 09:15 (Bactroban Nasal 2% Oint) Taper BID EACH NARE 12/21/17 21:00 12/17/18 20:59 12/27/17 08:30 (Lacrilube Opht Oint) 1 applic Q12HR EACH EYE 12/21/17 10:00 12/27/17 08:31 (D50w (Vial) Inj) 50 ml UNSCH PRN IV PUSH 12/21/17 09:15 (Glucagon Inj) 1 mg UNSCH PRN OTHER 12/21/17 09:15 (NovoLIN R SUPPLEMENTAL SCALE) 1 Q6HR SQ 12/21/17 12:00 12/27/17 12:17 (Tylenol 650 Mg/ 20 ml Liq) 650 mg Q6H PRN NG 12/21/17 09:30 12/22/17 16:14 Epoprostenol Sodium 75 ml/ Sodium Chloride 100 ml @ 5 mls/hr Q8H NEB 12/21/17 10:00 12/27/17 10:01 (Pill Splitter) 1 ea UNSCH PRN OTHER 12/21/17 21:00 (Aspirin Chew) 81 mg DAILY CHEW 12/22/17 09:00 12/27/17 08:31 (Cathflo Activase Inj) 2 mg Q2H PRN INTRACATH 12/22/17 14:15 12/22/17 14:37 (Synthroid) 25 mcg DAILY@0600 PO 12/23/17 06:00 12/27/17 06:06 (Colace Liq) 100 mg Q12HR NG 12/23/17 21:00 12/27/17 08:30 (Senna Liq) 8.8 mg BID NG 12/23/17 21:00 12/27/17 08:31 (Miralax) 17 gm BID NG 12/23/17 21:00 12/27/17 08:30 (Lactulose Liq) 30 ml QID PO 12/23/17 13:00 12/27/17 12:17 (Levemir Inj) 8 units Q12HR SQ 12/23/17 21:00 12/27/17 08:31 (Lasix Inj) 40 mg BID@,18 IV PUSH 12/24/17 09:00 12/27/17 08:31 (Reglan Inj) 5 mg Q8H PRN IV PUSH 12/24/17 17:45 12/27/17 01:50 (SoluMEDROL INJ) 40 mg Q8H IV PUSH 12/25/17 10:00 12/27/17 10:00 (Duoneb Neb) 1 ampule Q4HR NEB NEB 12/26/17 16:00 12/27/17 11:25 Pharmacy Profile Note 0 ml @ 0 mls/hr UNSCH OTHER 12/26/17 14:15 Miscellaneous Information SPECIFIC LAB TO BE DRAWN:[facility] TROUGH DATE TO... ONCE ONCE .XX 12/28/17 02:45 12/28/17 02:46 Vancomycin HCl 1500 mg/Sodium Chloride 515 ml @ 257.5 mls/ hr Q12H IV 12/27/17 03:00 12/27/17 03:30 Norepinephrine Bitartrate 4 mg/ Sodium Chloride 250 ml @ 7.5 mls/hr TITRATE PRN IV 12/27/17 08:15 12/27/17 08:45 (Brethine Inj) 1 mg UNSCH PRN SQ 12/27/17 08:15 Vital Signs / I&O Vital Signs Date Time Temp Pulse Resp B/P (MAP) Pulse Ox O2 Delivery O2 Flow Rate FiO2 12/27/17 12:30 60 16 90/54 (66) 97 106/79 (88) 12/27/17 12:15 60 16 89/53 (65) 97 113/75 (88) 12/27/17 12:00 60 12/27/17 12:00 60 88/51 (63) 106/76 (86) 12/27/17 12:00 45 12/27/17 12:00 98.3 60 16 88/51 (63) 97 106/76 (86) 12/27/17 11:45 60 16 90/49 (63) 97 93/71 (78) 12/27/17 11:30 60 16 100/58 (72) 97 87/77 (80) 12/27/17 11:26 97 45 12/27/17 11:15 60 16 107/56 (73) 97 95/79 (84) 12/27/17 11:00 60 15 106/61 (76) 97 110/82 (91) 12/27/17 10:15 58 16 112/58 (76) 96 112/55 (74) 12/27/17 10:01 57 16 104/54 (71) 97 111/64 (80) 12/27/17 10:00 58 12/27/17 09:45 58 16 85/41 (56) 97 87/76 (80) 12/27/17 09:45 58 85/41 12/27/17 09:31 59 16 79/44 (56) 98 83/74 (77) 12/27/17 09:30 57 79/44 12/27/17 09:15 54 16 123/67 (85) 98 130/78 (95) 12/27/17 09:04 50 16 110/59 (76) 97 112/73 (86) 12/27/17 09:00 59 71/33 12/27/17 08:45 54 84/45 12/27/17 08:22 47 16 75/38 (50) 98 107/63 (78) 12/27/17 08:19 54 16 84/45 (58) 95 103/64 (77) 12/27/17 08:03 98.4 62 16 82/44 (57) 94 71/34 (46) 12/27/17 08:02 62 16 79/46 (57) 94 82/32 (49) 12/27/17 08:00 45 12/27/17 08:00 65 12/27/17 08:00 65 70/34 (46) 12/27/17 07:29 94 45 12/27/17 07:00 76 16 118/56 (76) 97 133/61 (85) 12/27/17 06:00 78 12/27/17 04:01 98 45 12/27/17 04:00 87 101/55 (70) 108/48 (68) 12/27/17 04:00 98.6 87 16 101/55 (70) 98 108/48 (68) 12/27/17 04:00 45 12/27/17 04:00 87 3/22/18 02:00 69 12/27/17 00:00 71 103/53 (70) 113/61 (78) 12/27/17 00:00 71 12/27/17 00:00 98.3 72 16 103/53 (70) 97 123/60 (81) 12/27/17 00:00 45 12/26/17 23:35 99 45 12/26/17 23:27 99 45 12/26/17 22:00 64 12/26/17 21:42 64 91/45 12/26/17 20:00 60 12/26/17 20:00 60 94/48 (63) 126/76 (93) 12/26/17 20:00 45 12/26/17 20:00 97.5 60 16 94/48 (63) 97 126/76 (93) 12/26/17 18:00 65 12/26/17 16:00 50 12/26/17 16:00 98.0 60 16 126/68 (87) 97 149/74 (99) 12/26/17 16:00 60 12/26/17 16:00 60 126/68 (87) 149/74 (99) 12/26/17 14:45 97 50 12/26/17 14:00 65 I/O 12/26/17 12/26/17 12/26/17 12/27/17 12/27/17 12/27/17 07:00 15:00 23:00 07:00 15:00 23:00 Intake Total 1050 ml 200 ml 1683 ml 1176 ml 525 ml Output Total 3300 ml 5360 ml 3300 ml Balance -2250 ml 200 ml -3677 ml -2124 ml 525 ml IV Total 710 ml 200 ml 1375 ml 810 ml 525 ml Tube Feeding 220 ml 308 ml 246 ml Tube Irrigant 120 ml Other 120 ml Output Urine Total 2400 ml 4400 ml 2300 ml Stool Total 900 ml 960 ml 1000 ml Physical Exam GENERAL: Intubated, sedated, in Rotoprone SKIN: Warm and dry. HEAD: Normocephalic. EYES: No scleral icterus. No injection or drainage. NECK: Supple, trachea midline. No JVD or lymphadenopathy. CARDIOVASCULAR: Regular rate and rhythm without murmurs, gallops, or rubs. RESPIRATORY: Breath sounds equal bilaterally. No accessory muscle use. Bilat diffuse rhonchi. GASTROINTESTINAL: Abdomen soft, non-tender, nondistended. MUSCULOSKELETAL: No cyanosis, mild edema. Laboratory Laboratory Tests Test 12/27/17 03:50 White Blood Count 22.7 TH/MM3 Red Blood Count 4.14 MIL/MM3 Hemoglobin 12.2 GM/DL Hematocrit 36.1 % Mean Corpuscular Volume 87.1 FL Mean Corpuscular Hemoglobin 29.5 PG Mean Corpuscular Hemoglobin Concent 33.9 % Red Cell Distribution Width 12.7 % Platelet Count 498 TH/MM3 Mean Platelet Volume 8.6 FL Neutrophils (%) (Auto) 90.7 % Lymphocytes (%) (Auto) 4.2 % Monocytes (%) (Auto) 4.5 % Eosinophils (%) (Auto) 0.3 % Basophils (%) (Auto) 0.3 % Neutrophils # (Auto) 20.6 TH/MM3 Lymphocytes # (Auto) 1.0 TH/MM3 Monocytes # (Auto) 1.0 TH/MM3 Eosinophils # (Auto) 0.1 TH/MM3 Basophils # (Auto) 0.1 TH/MM3 CBC Comment AUTO DIFF Differential Total Cells Counted 100 Neutrophils % (Manual) 59 % Band Neutrophils % 19 % Lymphocytes % 9 % Monocytes % 8 % Neutrophils # (Manual) 18.8 TH/MM3 Myelocytes 5 % Differential Comment FINAL DIFF MANUAL Platelet Estimate HIGH Platelet Morphology Comment NORMAL Blood Urea Nitrogen 29 MG/DL Creatinine 0.63 MG/DL Random Glucose 158 MG/DL Total Protein 6.2 GM/DL Albumin 1.9 GM/DL Calcium Level 7.6 MG/DL Magnesium Level 2.1 MG/DL Alkaline Phosphatase 122 U/L Aspartate Amino Transf (AST/SGOT) 41 U/L Alanine Aminotransferase (ALT/SGPT) 43 U/L Total Bilirubin 0.4 MG/DL Sodium Level 140 MEQ/L Potassium Level 4.1 MEQ/L Chloride Level 101 MEQ/L Carbon Dioxide Level 34.4 MEQ/L Anion Gap 5 MEQ/L Estimat Glomerular Filtration Rate 102 ML/MIN Imaging Last 24 hours Impressions Chest X-Ray 12/27/17 0600 Signed Impressions: Service Date/Time: December 04:15 - CONCLUSION: Stable right upper lung consolidation. Yomi Lopez MD Assessment and Plan Problem List: (1) Sepsis due to methicillin resistant Staphylococcus aureus (MRSA) ICD Codes: A41.02 - Sepsis due to Methicillin resistant Staphylococcus aureus (2) ARDS (adult respiratory distress syndrome) ICD Codes: J80 - Acute respiratory distress syndrome (3) Bilateral pneumonia ICD Codes: J18.9 - Pneumonia, unspecified organism Status: Acute (4) Acute hypoxemic respiratory failure ICD Codes: J96.01 - Acute respiratory failure with hypoxia (5) Paroxysmal atrial fibrillation ICD Codes: I48.0 - Paroxysmal atrial fibrillation (6) Bradycardia ICD Codes: R00.1 - Bradycardia, unspecified Assessment and Plan Hypotensive, requiring pressors even though sotalol now discontinued. Stays in SR, no recurrent AF. Still has occasional episodes of bradycardia, likely respiratory related. Troponin elevated, but not trending in either direction. JEANINE with no evidence of endocarditis, LV fx preserved. Continue tx for pneumonia /sepsis. Continue current program with ICU care and vent support. Wean pressors as tolerated. Continue monitoring for AF. Valorie Bray MD Dec 27, 2017 13:32
--- NOTE | 2017-12-27 13:59 | HHI.IDPN ---
Subjective Subjective Remarks X cover for Dr Sharlene farias's chart was reviewed Patient is a 47-year-old female, who initially presented to the [facility] ED complaining of 4 day history of chest pain and shortness of breath. In have any other history. She was apparently coughing and was bringing up some brownish phlegm. There was no mention of any fever or chills. No nausea or vomiting. No urinary complaints. Chest x-ray showed bilateral patchy basilar infiltrates. CTA did not show any pulmonary embolism, showed bilateral infiltrates with some cavitary lesions noted. She was transferred to the main hospital, and she apparently had some blood in the sputum. She ended up getting intubated. [facility] did bronchoscopy on her. Patient currently sedated postintubation. Her blood pressure is okay and she is not hypotensive. She is tachycardic. Infectious disease consultation has been requested to evaluate the patient with pneumonia Dw RN and Dr Pal pt is improving Notes reviewed On rotaprone bed still, but plan to take her off Rotaprone On sedation and nimbex Also on low dose levaphed 2/2 hypotension Noted that her BP is runnning low JEANINE no vegetation Antibiotics vanco teflaro Lines [facility] TLC - 12/21 Past Medical History Anxiety Past Surgical History Cholecystectomy Hysterectomy Allergies: Coded Allergies: No Known Allergies (Unverified , 12/15/17) Objective . Vital Signs Date Time Temp Pulse Resp B/P (MAP) Pulse Ox O2 Delivery O2 Flow Rate FiO2 12/27/17 12:30 60 16 90/54 (66) 97 106/79 (88) 12/27/17 12:15 60 16 89/53 (65) 97 113/75 (88) 12/27/17 12:00 60 12/27/17 12:00 60 88/51 (63) 106/76 (86) 12/27/17 12:00 45 12/27/17 12:00 98.3 60 16 88/51 (63) 97 106/76 (86) 12/27/17 11:45 60 16 90/49 (63) 97 93/71 (78) 12/27/17 11:30 60 16 100/58 (72) 97 87/77 (80) 12/27/17 11:26 97 45 12/27/17 11:15 60 16 107/56 (73) 97 95/79 (84) 12/27/17 11:00 60 15 106/61 (76) 97 110/82 (91) 12/27/17 10:15 58 16 112/58 (76) 96 112/55 (74) 12/27/17 10:01 57 16 104/54 (71) 97 111/64 (80) 12/27/17 10:00 58 12/27/17 09:45 58 16 85/41 (56) 97 87/76 (80) 12/27/17 09:45 58 85/41 12/27/17 09:31 59 16 79/44 (56) 98 83/74 (77) 12/27/17 09:30 57 79/44 12/27/17 09:15 54 16 123/67 (85) 98 130/78 (95) 12/27/17 09:04 50 16 110/59 (76) 97 112/73 (86) 12/27/17 09:00 59 71/33 12/27/17 08:45 54 84/45 12/27/17 08:22 47 16 75/38 (50) 98 107/63 (78) 12/27/17 08:19 54 16 84/45 (58) 95 103/64 (77) 12/27/17 08:03 98.4 62 16 82/44 (57) 94 71/34 (46) 12/27/17 08:02 62 16 79/46 (57) 94 82/32 (49) 12/27/17 08:00 45 12/27/17 08:00 65 12/27/17 08:00 65 70/34 (46) 12/27/17 07:29 94 45 12/27/17 07:00 76 16 118/56 (76) 97 133/61 (85) 12/27/17 06:00 78 12/27/17 04:01 98 45 12/27/17 04:00 87 101/55 (70) 108/48 (68) 12/27/17 04:00 98.6 87 16 101/55 (70) 98 108/48 (68) 12/27/17 04:00 45 12/27/17 04:00 87 12/27/17 02:00 69 12/27/17 00:00 71 103/53 (70) 113/61 (78) 12/27/17 00:00 71 12/27/17 00:00 98.3 72 16 103/53 (70) 97 123/60 (81) 12/27/17 00:00 45 12/26/17 23:35 99 45 12/26/17 23:27 99 45 12/26/17 22:00 64 12/26/17 21:42 64 91/45 12/26/17 20:00 60 12/26/17 20:00 60 94/48 (63) 126/76 (93) 12/26/17 20:00 45 12/26/17 20:00 97.5 60 16 94/48 (63) 97 126/76 (93) 12/26/17 18:00 65 12/26/17 16:00 50 12/26/17 16:00 98.0 60 16 126/68 (87) 97 149/74 (99) 12/26/17 16:00 60 12/26/17 16:00 60 126/68 (87) 149/74 (99) 12/26/17 14:45 97 50 12/26/17 14:00 65 12/27/17 12/27/17 12/28/17 15:00 23:00 07:00 Intake Total 525 ml Balance 525 ml IV Total 525 ml . Laboratory Tests Test 12/26/17 03:47 12/27/17 03:50 White Blood Count 24.7 TH/MM3 22.7 TH/MM3 Red Blood Count 4.24 MIL/MM3 4.14 MIL/MM3 Hemoglobin 12.2 GM/DL 12.2 GM/DL Hematocrit 36.7 % 36.1 % Mean Corpuscular Volume 86.5 FL 87.1 FL Mean Corpuscular Hemoglobin 28.9 PG 29.5 PG Mean Corpuscular Hemoglobin Concent 33.4 % 33.9 % Red Cell Distribution Width 12.9 % 12.7 % Platelet Count 518 TH/MM3 498 TH/MM3 Mean Platelet Volume 8.0 FL 8.6 FL Neutrophils (%) (Auto) 93.2 % 90.7 % Lymphocytes (%) (Auto) 2.4 % 4.2 % Monocytes (%) (Auto) 4.1 % 4.5 % Eosinophils (%) (Auto) 0.2 % 0.3 % Basophils (%) (Auto) 0.1 % 0.3 % Neutrophils # (Auto) 23.0 TH/MM3 20.6 TH/MM3 Lymphocytes # (Auto) 0.6 TH/MM3 1.0 TH/MM3 Monocytes # (Auto) 1.0 TH/MM3 1.0 TH/MM3 Eosinophils # (Auto) 0.0 TH/MM3 0.1 TH/MM3 Basophils # (Auto) 0.0 TH/MM3 0.1 TH/MM3 CBC Comment AUTO DIFF AUTO DIFF Differential Total Cells Counted 100 100 Neutrophils % (Manual) 79 % 59 % Band Neutrophils % 11 % 19 % Lymphocytes % 4 % 9 % Monocytes % 5 % 8 % Neutrophils # (Manual) 22.5 TH/MM3 18.8 TH/MM3 Metamyelocytes 1 % Differential Comment FINAL DIFF MANUAL FINAL DIFF MANUAL Toxic Granulation 1+ Platelet Estimate HIGH HIGH Platelet Morphology Comment NORMAL NORMAL Myelocytes 5 % Laboratory Tests Test 12/26/17 03:47 12/27/17 03:50 Blood Urea Nitrogen 32 MG/DL 29 MG/DL Creatinine 0.67 MG/DL 0.63 MG/DL Random Glucose 186 MG/DL 158 MG/DL Calcium Level 7.5 MG/DL 7.6 MG/DL Phosphorus Level 2.7 MG/DL Magnesium Level 2.2 MG/DL 2.1 MG/DL Sodium Level 144 MEQ/L 140 MEQ/L Potassium Level 4.0 MEQ/L 4.1 MEQ/L Chloride Level 104 MEQ/L 101 MEQ/L Carbon Dioxide Level 34.7 MEQ/L 34.4 MEQ/L Anion Gap 5 MEQ/L 5 MEQ/L Estimat Glomerular Filtration Rate 95 ML/MIN 102 ML/MIN Total Protein 6.2 GM/DL Albumin 1.9 GM/DL Alkaline Phosphatase 122 U/L Aspartate Amino Transf (AST/SGOT) 41 U/L Alanine Aminotransferase (ALT/SGPT) 43 U/L Total Bilirubin 0.4 MG/DL Imaging Last Impressions Chest X-Ray 12/27/17 0600 Signed Impressions: Service Date/Time: December 04:15 - CONCLUSION: Stable right upper lung consolidation. Yomi Lopez MD CT Angiography 12/16/17 0000 Signed Impressions: Service Date/Time: Saturday, December 16, 2017 13:49 - CONCLUSION: 1. Negative for pulmonary emboli. 2. Dense consolidation in the lungs especially the lung bases with several cavitary lesions as above. Findings are most characteristic of pneumonia. Cannot exclude septic embolic disease. No significant effusion. Malachi Hardin MD Physical Exam GENERAL: Sedated, on paralytics, on rotaprone bed. EXAm limited 2/2 prone position SKIN: Warm and dry. No rash on the back. EYES: unable to examine 2/2 prone position EARS, unable to examine 2/2 prone position NECK: unable to examine 2/2 prone position CARDIOVASCULAR: Tachycardic, regular rhythm on monitor well perfused, warm perifery RESPIRATORY: Diffuse rhonchi posteriorly, fairly good air movement GI: unable to examine 2/2 prone position Brown liquid stool in Dignishield bag EXTREMITIES: has edema all 4 extremeties : clear yellow urine NEUROLOGICAL: Sedated, and on paralytics PSYCHIATRIC: Unable to assess LINE: No evidence of infection Assessment & Plan Remarks IMPRESSION Sepsis present, high grade, on admission, has MRSA on blood cultures - S/P arrest Bilateral pneumonia, some with cavitation - C/S with MRSA - CXR worse Very worrisome for endocarditis - clinically , but JEANINE negative Respiratory failure. worsening infiltrates, PNA, ?ARDS Leukocytosis, persistent New issue: hypotension Abx associated PNA RECOMMENDATION Follow new cultures and adjust antibiotics cont IV vanco dc Teflaro start zyvox add cefepime r/o C.diff dw Dr Demarco rasheed RN @ b/s Hermila Ramos MD Dec 27, 2017 13:59
[2017-12-27] MEDS: CEFEPIME INJ 2,000 MG in SODIUM CHLORIDE 0.9% INJ 100 ML IV SCH ×2 (14:59→21:41)
[2017-12-27] MEDS: LINEZOLID 600 MG PREMIX 300 ML IV SCH (16:00)
--- NOTE | 2017-12-27 17:36 | HHI.PR ---
Subjective Remarks 47 YOWF with VDRF, Sepsis, Pn On Rotobed paralysed, sedated On Levophed Objective Vital Signs Vital Signs Date Time Temp Pulse Resp B/P (MAP) Pulse Ox O2 Delivery O2 Flow Rate FiO2 12/27/17 16:00 45 12/27/17 14:00 57 12/27/17 12:30 60 16 90/54 (66) 97 106/79 (88) 12/27/17 12:15 60 16 89/53 (65) 97 113/75 (88) 12/27/17 12:00 60 12/27/17 12:00 60 88/51 (63) 106/76 (86) 12/27/17 12:00 45 12/27/17 12:00 98.3 60 16 88/51 (63) 97 106/76 (86) 12/27/17 11:45 60 16 90/49 (63) 97 93/71 (78) 12/27/17 11:30 60 16 100/58 (72) 97 87/77 (80) 12/27/17 11:26 97 45 12/27/17 11:15 60 16 107/56 (73) 97 95/79 (84) 12/27/17 11:00 60 15 106/61 (76) 97 110/82 (91) 12/27/17 10:15 58 16 112/58 (76) 96 112/55 (74) 12/27/17 10:01 57 16 104/54 (71) 97 111/64 (80) 12/27/17 10:00 58 12/27/17 09:45 58 16 85/41 (56) 97 87/76 (80) 12/27/17 09:45 58 85/41 12/27/17 09:31 59 16 79/44 (56) 98 83/74 (77) 12/27/17 09:30 57 79/44 12/27/17 09:15 54 16 123/67 (85) 98 130/78 (95) 12/27/17 09:04 50 16 110/59 (76) 97 112/73 (86) 12/27/17 09:00 59 71/33 12/27/17 08:45 54 84/45 12/27/17 08:22 47 16 75/38 (50) 98 107/63 (78) 12/27/17 08:19 54 16 84/45 (58) 95 103/64 (77) 12/27/17 08:03 98.4 62 16 82/44 (57) 94 71/34 (46) 12/27/17 08:02 62 16 79/46 (57) 94 82/32 (49) 12/27/17 08:00 45 12/27/17 08:00 65 12/27/17 08:00 65 70/34 (46) 12/27/17 07:29 94 45 12/27/17 07:00 76 16 118/56 (76) 97 133/61 (85) 12/27/17 06:00 78 12/27/17 04:01 98 45 12/27/17 04:00 87 101/55 (70) 108/48 (68) 12/27/17 04:00 98.6 87 16 101/55 (70) 98 108/48 (68) 12/27/17 04:00 45 12/27/17 04:00 87 12/27/17 02:00 69 12/27/17 00:00 71 103/53 (70) 113/61 (78) 12/27/17 00:00 71 12/27/17 00:00 98.3 72 16 103/53 (70) 97 123/60 (81) 12/27/17 00:00 45 12/26/17 23:35 99 45 12/26/17 23:27 99 45 12/26/17 22:00 64 12/26/17 21:42 64 91/45 12/26/17 20:00 60 12/26/17 20:00 60 94/48 (63) 126/76 (93) 12/26/17 20:00 45 12/26/17 20:00 97.5 60 16 94/48 (63) 97 126/76 (93) 12/26/17 18:00 65 I/O 12/26/17 12/26/17 12/26/17 12/27/17 12/27/17 12/27/17 07:00 15:00 23:00 07:00 15:00 23:00 Intake Total 1050 ml 200 ml 1683 ml 1176 ml 1135 ml Output Total 3300 ml 5360 ml 3300 ml Balance -2250 ml 200 ml -3677 ml -2124 ml 1135 ml IV Total 710 ml 200 ml 1375 ml 810 ml 1135 ml Tube Feeding 220 ml 308 ml 246 ml Tube Irrigant 120 ml Other 120 ml Output Urine Total 2400 ml 4400 ml 2300 ml Stool Total 900 ml 960 ml 1000 ml Result Diagram: 12/27/17 0350 12/27/17 0350 Objective Remarks GENERAL: MBMN WF, on vent, sedated, parlised SKIN: Warm and dry. HEAD: Normocephalic. EYES: No scleral icterus. No injection or drainage. NECK: Supple, trachea midline. No JVD or lymphadenopathy. CARDIOVASCULAR: Regular rate and rhythm without murmurs, gallops, or rubs. RESPIRATORY: Breath sounds equal bilaterally. No accessory muscle use. GASTROINTESTINAL: Abdomen soft, non-tender, nondistended. MUSCULOSKELETAL: No cyanosis, or edema. BACK: Nontender without obvious deformity. No CVA tenderness. A/P Assessment and Plan IMPRESSION: VDRF Sepsis Bilt Pneumonia ARDS PLAN: Cont vent support Parlysed with Nimbex Sedation with Diprivan, Fentanyl Levophed to support BP Abx vanco, Zyvox, Cefepime per ID. Maik Nloan MD Dec 27, 2017 17:36
[2017-12-27] MEDS: SODIUM CHLORIDE 0.9% FLUSH 10 ML FLUSH IV FLUSH PRN (20:00)
[2017-12-28] VITALS (21 sets, daily range): BP systolic 74–147; BP diastolic 41–83; PULSE 55–148; RESP 16–33; TEMP 98.2–99.7; O2SAT 86–100
[2017-12-28] MEDS: fentaNYL DRIP 250 ML IV PRN ×3 (00:08→09:49)
[2017-12-28] MEDS: RESP: ALBUTEROL 2.5 MG/IPRATROPIUM 0.5 MG NEB (SCH) NEB ×6 (00:13→20:15)
[2017-12-28] MEDS: CISATRACURIUM INJ 100 MG in SODIUM CHLOR 0.9% 250 ML INJ 250 ML IV PRN ×2 (01:35→05:56)
[2017-12-28] MEDS: methylPREDNISolone SOD SUCC 40 MG/1 ML VIAL IV PUSH SCH ×3 (01:35→18:42)
[2017-12-28] MEDS ORDERED: PHARMACY ORDERED LAB ONE ×2 (02:45→14:45)
[2017-12-28] MEDS: LINEZOLID 600 MG PREMIX 300 ML IV SCH ×2 (02:49→14:10)
[2017-12-28] MEDS: PROPOFOL 1000 MG/100 ML INJ 100 ML IV PRN ×4 (02:49→18:31)
[2017-12-28] MEDS: VANCOMYCIN 1,500 MG/NS 500 ML IV SCH ×4 (02:49→14:10)
[2017-12-28] MEDS: EPOPROSTENOL NEB SOLUTION 50 NG/KG/MIN 100 ML NEB SCH ×2 (03:03)
[2017-12-28 03:26] LABS: AUTOMATED NEUTROPHIL # 20.2 TH/MM3 (1.8-7.7); BASOPHIL # 0.1 TH/MM3 (0-0.2); BASOPHIL % 0.3 % (0.0-2.0); EOSINOPHIL # 0.1 TH/MM3 (0-0.4); EOSINOPHIL % 0.3 % (0.0-4.0); HEMATOCRIT 31.2 % (35.0-46.0); HEMOGLOBIN 10.5 GM/DL (11.6-15.3); LYMPH % 6.4 % (9.0-44.0); LYMPHOCYTE # 1.5 TH/MM3 (1.0-4.8); MEAN CELL VOLUME 87.6 FL (80.0-100.0); MEAN CORPUSCULAR HEMOGLOBIN 29.5 PG (27.0-34.0); MEAN CORPUSCULAR HGB CONC 33.7 % (32.0-36.0); MEAN PLATELET VOLUME 8.5 FL (7.0-11.0); MONO % 7.4 % (0.0-8.0); MONOCYTE # 1.8 TH/MM3 (0-0.9); NEUT % 85.6 % (16.0-70.0); PLATELET COUNT 616 TH/MM3 (150-450); RED BLOOD COUNT 3.56 MIL/MM3 (4.00-5.30); RED CELL DISTRIBUTION WIDTH 12.8 % (11.6-17.2); WHITE BLOOD COUNT 23.7 TH/MM3 (4.0-11.0)
[2017-12-28] MEDS: CHLORHEXIDINE GLUCONATE 2 % 1 PACK (2 CLOTHS) TOP SCH (03:28)
[2017-12-28] MEDS: HEPARIN SODIUM - SQ 10,000 UNITS/ML VIAL SQ SCH ×3 (03:28→21:20)
[2017-12-28] MEDS: FAMOTIDINE 20 MG/2 ML VIAL IV PUSH SCH ×2 (03:29→16:07)
[2017-12-28 04:16] LABS: ALBUMIN 1.8 GM/DL (3.4-5.0); BICARBONATE 31.1 MEQ/L (21.0-32.0); CALCIUM 7.4 MG/DL (8.5-10.1); CALCIUM-PROTEIN CORRECTED 8.2 MG/DL (8.5-10.1); CREATININE 0.62 MG/DL (0.50-1.00); TOTAL BILIRUBIN ADULT 0.3 MG/DL (0.2-1.0); TOTAL PROTEIN 5.7 GM/DL (6.4-8.2)
[2017-12-28] MEDS: MIDAZOLAM 100 MG/100 ML INJ 100 ML IV PRN (05:57)
[2017-12-28] MEDS: INSULIN NovoLIN REGULAR SUPPLEMENTAL SCALE SQ SCH ×3 (06:00→18:00)
[2017-12-28] MEDS: LEVOTHYROXINE SODIUM 25 MCG TAB PO SCH (06:02)
[2017-12-28] MEDS: CEFEPIME INJ 2,000 MG in SODIUM CHLORIDE 0.9% INJ 100 ML IV SCH ×3 (06:03→21:18)
[2017-12-28] MEDS: RESP: BUDESONIDE 0.5 MG/2 ML NEB NEB SCH ×2 (07:26→20:15)
[2017-12-28] MEDS: CHLORHEXIDINE 0.12% (ORAL KIT) 15 ML CUP MT SCH ×2 (08:00→21:17)
--- NOTE | 2017-12-28 08:13 | HHI.CCPN ---
Subjective Remarks/Hospital Course This is a 47-year-old female with a history of anxiety disorder, that presented to [facility] on with complaints of chest pain and dyspnea that has been lasting for the past 4 days. The patient was transferred to [facility]. Imaging and laboratory studies were initially performed which showed a chest x-ray with bilateral patchy airspace consolidation consistent with bronchial pneumonia, and her lactic acid level was noted to be 3.1. The patient's oxygen requirements continue to increase the patient became tachypneic with a respiratory rate in the 40s and tachycardic, heart rate in the 120s. Pulmonology was consulted, CT was performed which revealed no pulmonary emboli , will several cavitary lesions, dense consolidation at both lung bases, air bronchograms and extensive pneumomediastinum extending into the lower neck and upper chest .ICU was requested to see patient. Upon observation the patient was severely dyspneic, with significant accessory muscle movement, violently coughing hemoptysis. Decision made to intubate patient for airway protection. 12/17 Patient is sedated with Diprivan and versed infusion. afebrile. s/p bronch yesterday by Dr. Klein. 12/18 Patient remains sedated with Versed 10mg/hr and Fentanyl 250 mics. Tmax 102.1 yesterday. + MRSA in bronch and GPC/MRSA from [facility] 12/15 from [facility] 12/19: Patient developed respiratory distress and SVT this am with vent dyssynchrony with air trapping and elevated peak pressure. FiO2 increased to 100%, started on Nimbex infusion. Intermittently tachycardic, occasional bradycardia also. EKG shows sinus rhythm. Patient is very critical now. Will consult cardiology for JEANINE, and also regarding SVT. Chest x-ray shows worsening bilateral infiltrates concerning for ARDS 12/20: Remains intubated heavily sedated and neuromuscularly paralyzed to maintain ventilator synchrony and control peak pressures. Chest x-ray shows persistent bilateral infiltrates. JEANINE planned for today. All cultures so far positive for MRSA. Tachy Arrhythmia is better controlled after starting sotalol 12/21: CODE BLUE overnight when patient became bradycardic. Received epinephrine with chest compressions with return of spontaneous relief within 5 minutes according to RN. Currently on peripheral dopamine at 10 mcg/kg/min. FiO2 currently at 100%. Chest x-ray revealed worsening diffuse bilateral pulmonary infiltrates 12/22: T-max 101.1 Fahrenheit. Currently 98.9 Fahrenheit. +2493 cc past 24 hours. No bowel movement. Currently on roto-prone bed on epoprostenol at 50, 000 ng/kg/min aerosolized. On tube feeds Glucerna 1.5 at 20 cc an hour. Subjective 12/23: Overnight, when switching from supine to prone position patient 32nd episode of asystole resolved without chest compressions. We are currently patient has been prone position again with very slow with and without. Tolerating tube feeds now. Remains on cisatracurium drip at 4 mcg/min 12/24 Patient remains sedated and intubated. On Diprivan, Fentanyl, Versed in addition to Nimbex and Dopamine @5mics. Afebrile. 12/25 No events overnight. Remains sedated, intubated and on Rotoprone bed. On Dopamine 5 mics and Nimbex. T:99.7 12/26: Remains critically ill remains on prone ventilation. I will change on time/supine time to prospectively 5 hours/1 hour cycles. Increase PEEP to 10 to facilitate prolonged weaning. CXR shows persistent consolidation RUL 12/27: Remains critical but oxygenation stable. Off dopamine but hypotensive now with map of 58. Start on Levophed to keep map above 65. Change prone/ supine cycles to 4 hours each. Discontinue prone therapy in the next 24 hours if stable. WBC count is slightly improved 12/28: Transitioned from a prone bed to Roto-Rest today, tolerated well. Remains on Flolan will start weaning today per protocol. Urine output is excellent with Lasix. Remains on Levophed to maintain map above 65. Discontinue Nimbex today Objective Vital Signs Date Time Temp Pulse Resp B/P (MAP) Pulse Ox O2 Delivery O2 Flow Rate FiO2 12/28/17 07:28 97 40 12/28/17 06:00 71 12/28/17 04:00 89/51 (64) 120/57 (78) 12/28/17 04:00 16 12/28/17 00:00 98.2 12/25/17 10:33 Ventilator Intake and Output 12/28/17 12/28/17 12/29/17 08:00 16:00 00:00 Intake Total 3123 ml Output Total 1150 ml Balance 1973 ml Result Diagram: 12/28/17 0245 12/28/17 0245 Imaging Last Impressions Chest X-Ray 12/24/17 0600 Signed Impressions: Service Date/Time: Sunday, December 24, 2017 04:53 - CONCLUSION: Persistent dense consolidation right upper lobe and a new small area of consolidation in the left lower lobe. Yomi Lopez MD CT Angiography 12/16/17 0000 Signed Impressions: Service Date/Time: Saturday, December 16, 2017 13:49 - CONCLUSION: 1. Negative for pulmonary emboli. 2. Dense consolidation in the lungs especially the lung bases with several cavitary lesions as above. Findings are most characteristic of pneumonia. Cannot exclude septic embolic disease. No significant effusion. Malachi Hardin MD Objective Remarks GENERAL: 47-year-old female currently in roto-rest bed orotracheally intubated SKIN: Warm and dry. HEAD: Normocephalic. EYES: No scleral icterus. No injection or drainage. ENT: Orotracheally intubated NECK: Supple, trachea midline. Left IJ CVL CARDIOVASCULAR: Currently normal sinus rhythm. RRR. RESPIRATORY: Anterior lung [place] equal breath bilaterally. Bilateral coarse rhonchi and wheezes. GASTROINTESTINAL: Abdomen soft, non-tender, nondistended. MUSCULOSKELETAL: No significant peripheral edema NEURO: Intubated heavily sedated on neuromuscular paralysis which limits neuro exam Date of Insertion: Dec 20, 2017 Line: Central Venous Catheter Side: Left Location: Internal, Jugular A/P Problem List: (1) Acute hypoxemic respiratory failure ICD Code: J96.01 - Acute respiratory failure with hypoxia (2) Septic shock due to methicillin resistant Staphylococcus aureus ICD Code: A41.02 - Sepsis due to Methicillin resistant Staphylococcus aureus; R65.21 - Severe sepsis with septic shock (3) Sepsis due to methicillin resistant Staphylococcus aureus (MRSA) ICD Code: A41.02 - Sepsis due to Methicillin resistant Staphylococcus aureus (4) ARDS (adult respiratory distress syndrome) ICD Code: J80 - Acute respiratory distress syndrome (5) Cavitating pneumonia (6) 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 (7) Anxiety ICD Code: F41.9 - Anxiety disorder, unspecified Status: Chronic (8) Bilateral pneumonia ICD Code: J18.9 - Pneumonia, unspecified organism Status: Acute Assessment and Plan Neuro/Psych: Anxiety disorder THC use On propofol at 50 mg/kg/min, fentanyl drip at 250 mcg an hour and midazolam drip at 8 mg an hour for sedation/analgesia Neuromuscular paralysis with cisatracurium currently at 4 mcg/min infusions for ventilator dyssynchrony and ARDS, and prone ventilation-DC Nimbex today Start daily sedation vacation Patient at risk for CIM however was extremely hypoxic with severe ARDS now requiring prone ventilation UDS: + benzos, cannabinoids Acetaminophen 650 mg liquid by tube every 6 hours as needed fever Respiratory: Acute hypoxemic respiratory failure ARDS Small right Pneumothorax Pneumomediastinum Hemoptysis by history Pulmonary cavitary lesions ACV 16/500/10/60, prone ventilation. DC proning today, [facility] Ventilator bundle. Albuterol/ipratropium aerosols every 4 hours with albuterol aerosols every 2 hours as needed dyspnea Budesonide 0.5/2 1 inhalation twice daily Methylprednisolone succinate 40 mg IV every 8 hours-reduce to q12 No spontaneous breathing trials or sedation medication due to neuromuscular paralysis and high O2 requirements, Flolan Start weaning Flolan per protocol 12/16 -CT Angio - extensive pneumomediastinum extending into neck and upper chest. Dense consolidation at both lung bases, air bronchograms , 2 cavitary lesions 12/16-bronchoscopy performed by Dr. Klein, no active sites noted for bleeding, moderate purulent mucus bilaterally noted 2 BAL samples sent CTS is following for Pneumomediastinum-per Dr. Guadarrama no intervention at this time. Dr. Loja pulmonology following Cardiovascular: Septic shock Bradycardic arrest Paroxysmal atrial fibrillation SVT Probable infective endocarditis Elevated troponin Off Dopamine. On Levophed to keep MAP>65mmHg. On sotalol 40 mg twice daily by Dr. Bray 12/19 Monitor HR and BP keep MAP>65mmHg Transesophageal echocardiogram 12/20 revealed no signs of endocarditis. Preserved LV function. Trace MR/TR Echo 12/17 showed EF 60-65%. Echo 12/21 EF 50%. Cannot rule out regional wall motion and ability Troponin 1.26 from 3.4 and downward trending Aspirin 81 mg p.o. daily FEN/Renal: Hypernatremia Monitor renal function Electrolytes replacement per protocol. Continue Lasix 40mg Q12. Diuresis to dry weight GI: Elevated AST and alkaline phosphatase Hypoalbuminemia On tube feeds-change to Glucerna 1.5 with goal rate 55ml/hr Famotidine 20 mg twice daily GI prophylaxis Docusate sodium/senna 1 tablet twice daily for bowel regimen Having bowel movements ID: MRSA Bacteremia MRSA pneumonia Septic shock ABX per ID: Continue IV Vanc, Zyvoxx and Cefepime. ceftaroline Dcd 12/27/17. Cubicin DCd 12/26 by ID JEANINE revealed no signs of endocarditis 12/20 12/15 [facility] from [facility]- MRSA 12/16 Bronch BAL- MRSA [facility] 12/16, 12/17 12/18: MRSA Blood culture 12/19 no growth 12/20 sputum/12/21 BAL MRSA influenza, pneumococcal and Legionella antigens- Negative Heme: Leukocytosis Normocytic anemia Monitor CBC. 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 Sliding scale insulin Accu-Cheks every 6 hours to maintain euglycemia/medium regimen and Levemir insulin 8 units subcu twice daily Low free T3 and T4 on levothyroxine 25 mcg daily with low T4. 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 Its more appropriate to work up when she is over the critical illness Prophylaxis: GI Prophylaxis Famotidine IV DVT Prophylaxis -- SCDs -heparin SQ Lines: Left IJ CVL placed 12/21 Left radial arterial line placed 12/21 by respiratory therapy-DC today Critical Care: The total critical care time was 30 minutes. Time to perform other separately billable procedures was not included in the critical care time. Remains critically ill requiring prone ventilation FiO2 remains at 45, PEEP of 8. Remains in shock on Levophed to maintain MAP>65. Start weaning Flolan per protocol Mraibel Pal MD Dec 28, 2017 08:13
[2017-12-28] MEDS: POLYETHYLENE GLYCOL 17 GM PKG NG SCH ×2 (08:39→21:19)
[2017-12-28] MEDS: FUROSEMIDE 40 MG/4 ML VIAL IV PUSH SCH ×2 (08:42→18:43)
[2017-12-28] MEDS: LACTULOSE SYRUP 20 GM/30 ML CUP PO SCH ×4 (08:42→21:19)
[2017-12-28] MEDS: DOCUSATE SODIUM 100 MG/10 ML UDC NG SCH ×2 (08:44→21:18)
[2017-12-28] MEDS: SODIUM CHLORIDE 0.9% FLUSH 10 ML FLUSH IV FLUSH SCH ×3 (08:45→21:22)
[2017-12-28] MEDS: ASPIRIN 81 MG CHEW TAB CHEW SCH (08:45)
[2017-12-28] MEDS: MUPIROCIN 2% OINT 1 APPLIC/GM SYR EACH NARE SCH ×2 (09:00→21:20)
[2017-12-28] MEDS: INSULIN DETEMIR 100 UNITS/ML VIAL SQ SCH ×2 (09:00→21:00)
[2017-12-28] MEDS ORDERED: EPOPROSTENOL NEB SOLUTION 40 NG/KG/MIN 100 ML NEB SCH ×2 (09:00)
[2017-12-28] MEDS: ARTIFICIAL TEARS OPTH OINT 3.5 APPLIC/3.5 GM TUBO EACH EYE SCH ×2 (09:47→21:20)
[2017-12-28] MEDS: SENNOSIDES SYRUP 8.8 MG/5 ML CUP NG SCH ×2 (09:47→21:29)
--- NOTE | 2017-12-28 10:24 | RADRPT ---
EXAM DATE/TIME: 12/28/2017 09:28 [facility] COMPARISON: CHEST SINGLE AP, December 27, 2017, 4:15. INDICATIONS : Shortness of breath. Evaluate for pneumonia. MEDICAL HISTORY : Unresponsive. SURGICAL HISTORY : Unresponsive. ENCOUNTER: Subsequent ACUITY: 3 weeks PAIN SCORE: Non-responsive. LOCATION: Bilateral chest FINDINGS: A single portable frontal view of the chest shows no significant change. Right upper lobe infiltrate remains. Interstitial prominence of the left lung particularly the lower lobe is stable. No effusions . Heart is normal size. Tip of the endotracheal tube 9 cm proximal to the magdalena. Nasogastric tube co urses off the inferior margin of the film. Left-sided central line. CONCLUSION: Unchanged right upper lobe infiltrate. Yomi Shipley Jr., MD on December 28, 2017 at 10:18 Board Certified Radiologist. This report was verified electronically.
[2017-12-28] MEDS: METOCLOPRAMIDE HCL 10 MG/2 ML VIAL IV PUSH SCH ×2 (14:46→21:18)
[2017-12-28 15:16] LABS: ALBUMIN 2.3 GM/DL (3.4-5.0); ALT (GPT) 55 U/L (10-53); AST (GOT) 46 U/L (15-37); BICARBONATE 31.2 MEQ/L (21.0-32.0); BLOOD UREA NITROGEN 30 MG/DL (7-18); CHLORIDE 95 MEQ/L (98-107); GLOMERULAR FILTRATION RATE 90 ML/MIN (>89); GLUCOSE,RANDOM 251 MG/DL (74-106); SODIUM (NA) 136 MEQ/L (136-145)
[2017-12-28 15:18] LABS: ALKALINE PHOSPHATASE 155 U/L (45-117); TOTAL BILIRUBIN ADULT 0.3 MG/DL (0.2-1.0); TOTAL PROTEIN 7.1 GM/DL (6.4-8.2)
[2017-12-28 15:45] LABS: BACTERIA, URINE MOD /hpf; BILIRUBIN, URINE NEG (NEG); BLOOD, URINE TRACE (NEG); GLUCOSE,URINE NEG (NEG); KETONE, URINE NEG (NEG); NITRITE,URINE NEG (NEG); PH, URINE 6.5 (5.0-8.5); URINE COLOR YELLOW (YELLW/STRAW); URINE LEUKOCYTE ESTERASE MOD (NEG)
--- NOTE | 2017-12-28 16:56 | PD.CARD.PN ---
Subjective Subjective Remarks Intubated, sedated, no a fib off sotalol, VSS off pressors Objective Medications Current Medications Medications (Trade) Dose Ordered Sig/Marily Route Start Time Stop Time Status Last Admin (NS Flush) 2 ml UNSCH PRN IV FLUSH 12/15/17 22:30 (NS Flush) 2 ml BID IV FLUSH 12/16/17 09:00 12/28/17 08:45 (Robitussin Dm 200-20 Mg/10 ml Liq) 10 ml Q4H PRN PO 12/15/17 22:30 Future Hold (Heparin Inj) 5,000 units Q8H SQ 12/16/17 12:00 12/28/17 11:52 (Morphine Inj) 1 mg Q4H PRN IM 12/16/17 09:15 Future Hold 12/16/17 10:11 (Mucinex Er) 600 mg BID PO 12/16/17 09:15 Future Hold 12/16/17 10:51 Propofol 100 ml @ 2.1 mls/hr TITRATE PRN IV 12/16/17 14:45 12/28/17 11:52 Fentanyl Citrate 250 ml @ 5 mls/hr TITRATE PRN IV 12/16/17 16:30 12/28/17 09:49 (Pepcid Inj) 20 mg Q12H IV PUSH 12/16/17 17:00 12/28/17 16:07 Miscellaneous Information 1 Q361D XX 12/16/17 16:45 (Chlorhexidine 2% Cloth) Taper DAILY@04 TOP 12/17/17 04:00 12/13/18 03:59 12/27/17 03:30 (Chlorhexidine 2% Cloth) 3 pack UNSCH PRN TOP 12/16/17 16:45 (Milk Of Magnesia Liq) 30 ml Q12H PRN PO 12/16/17 16:45 (Senokot) 17.2 mg Q12H PRN PO 12/16/17 16:45 12/28/17 08:39 (Dulcolax Supp) 10 mg DAILY PRN RECTAL 12/16/17 16:45 (Lactulose Liq) 30 ml DAILY PRN PO 12/16/17 16:45 (Peridex 0.12% Liq) 15 ml BID@08,20 MT 12/16/17 20:00 12/28/17 08:00 Midazolam HCl 100 ml @ 2 mls/hr TITRATE PRN IV 12/16/17 17:30 12/28/17 05:57 Potassium Chloride 100 ml @ 50 mls/hr Q2H PRN IV 12/17/17 07:45 Potassium Chloride 100 ml @ 50 mls/hr Q2H PRN IV 12/17/17 07:45 (K-Lyte Cl Eff) 50 meq UNSCH PRN PO 12/17/17 07:45 Potassium Chloride 100 ml @ 25 mls/hr UNSCH PRN IV 12/17/17 07:45 Potassium Chloride 100 ml @ 50 mls/hr Q2H PRN IV 12/17/17 07:45 Magnesium Sulfate 4 gm/Sodium Chloride 100 ml @ 50 mls/hr UNSCH PRN IV 12/17/17 07:45 (Mag-Ox) 800 mg UNSCH PRN PO 12/17/17 07:45 Magnesium Sulfate 2 gm/Sodium Chloride 100 ml @ 50 mls/hr UNSCH PRN IV 12/17/17 07:45 (K-Phos) 2,000 mg Q4H PRN PO 12/17/17 07:45 12/17/17 23:49 Sodium Phosphate 30 mmol/Sodium Chloride 250 ml @ 42 mls/hr UNSCH PRN IV 12/17/17 07:45 12/18/17 08:40 (K-Phos) 2,000 mg UNSCH PRN PO/TUBE 12/17/17 07:45 Potassium Phosphate 30 mmol/ Sodium Chloride 260 ml @ 42 mls/hr UNSCH PRN IV 12/17/17 07:45 12/19/17 07:57 (Albuterol Neb) 2.5 mg Q2HR NEB PRN NEB 12/21/17 08:30 12/26/17 07:12 (Pulmicort Respule Neb) 0.5 mg Q12HR NEB NEB 12/21/17 20:00 12/28/17 07:26 (NS Flush) DAILY IV FLUSH 12/22/17 09:00 12/28/17 08:45 (NS Flush) UNSCH PRN IV FLUSH 12/21/17 09:15 12/27/17 20:00 (Bactroban Nasal 2% Oint) Taper BID EACH NARE 12/21/17 21:00 12/17/18 20:59 12/28/17 09:00 (Lacrilube Opht Oint) 1 applic Q12HR EACH EYE 12/21/17 10:00 12/28/17 09:47 (D50w (Vial) Inj) 50 ml UNSCH PRN IV PUSH 12/21/17 09:15 (Glucagon Inj) 1 mg UNSCH PRN OTHER 12/21/17 09:15 (NovoLIN R SUPPLEMENTAL SCALE) 1 Q6HR SQ 12/21/17 12:00 12/28/17 11:53 (Tylenol 650 Mg/ 20 ml Liq) 650 mg Q6H PRN NG 12/21/17 09:30 12/22/17 16:14 (Pill Splitter) 1 ea UNSCH PRN OTHER 12/21/17 21:00 (Aspirin Chew) 81 mg DAILY CHEW 12/22/17 09:00 12/28/17 08:45 (Cathflo Activase Inj) 2 mg Q2H PRN INTRACATH 12/22/17 14:15 12/22/17 14:37 (Synthroid) 25 mcg DAILY@0600 PO 12/23/17 06:00 12/28/17 06:02 (Colace Liq) 100 mg Q12HR NG 12/23/17 21:00 12/28/17 08:44 (Senna Liq) 8.8 mg BID NG 12/23/17 21:00 12/28/17 09:47 (Miralax) 17 gm BID NG 12/23/17 21:00 12/28/17 08:39 (Lactulose Liq) 30 ml QID PO 12/23/17 13:00 12/28/17 11:52 (Levemir Inj) 8 units Q12HR SQ 12/23/17 21:00 12/28/17 09:00 (Lasix Inj) 40 mg BID@,18 IV PUSH 12/24/17 09:00 12/28/17 08:42 (Reglan Inj) 5 mg Q8H PRN IV PUSH 12/24/17 17:45 12/27/17 01:50 (SoluMEDROL INJ) 40 mg Q8H IV PUSH 12/25/17 10:00 12/28/17 08:41 (Duoneb Neb) 1 ampule Q4HR NEB NEB 12/26/17 16:00 12/28/17 14:56 Pharmacy Profile Note 0 ml @ 0 mls/hr UNSCH OTHER 12/26/17 14:15 Vancomycin HCl 1500 mg/Sodium Chloride 515 ml @ 257.5 mls/ hr Q12H IV 12/27/17 03:00 12/28/17 14:10 Norepinephrine Bitartrate 4 mg/ Sodium Chloride 250 ml @ 7.5 mls/hr TITRATE PRN IV 12/27/17 08:15 12/27/17 08:45 (Brethine Inj) 1 mg UNSCH PRN SQ 12/27/17 08:15 Linezolid 300 ml @ 300 mls/hr Q12H IV 12/27/17 15:00 12/28/17 14:10 Cefepime HCl 2000 mg/Sodium Chloride 100 ml @ 200 mls/hr Q8H IV 12/27/17 14:00 12/28/17 12:59 Epoprostenol Sodium 60 ml/ Sodium Chloride 100 ml @ 5 mls/hr Q8H [facility] 12/28/17 09:00 12/28/17 16:59 12/28/17 08:47 Epoprostenol Sodium 45 ml/ Sodium Chloride 100 ml @ 5 mls/hr Q8H [facility] 12/28/17 17:00 12/29/17 00:59 Epoprostenol Sodium 30 ml/ Sodium Chloride 100 ml @ 5 mls/hr Q8H [facility] 12/29/17 01:00 12/29/17 08:59 Epoprostenol Sodium 15 ml/ Sodium Chloride 100 ml @ 5 mls/hr Q8H [facility] 12/29/17 09:00 12/29/17 16:59 (Reglan Inj) 5 mg Q8H IV PUSH 12/28/17 15:00 12/28/17 14:46 Vital Signs / I&O Vital Signs Date Time Temp Pulse Resp B/P (MAP) Pulse Ox O2 Delivery O2 Flow Rate FiO2 12/28/17 16:00 40 12/28/17 16:00 99.3 82 25 129/60 (83) 96 142/68 (92) 12/28/17 14:58 100 40 12/28/17 14:00 97 12/28/17 12:00 99.7 86 24 106/54 (71) 93 122/70 (87) 12/28/17 12:00 86 106/54 (71) 122/70 (87) 12/28/17 12:00 86 12/28/17 12:00 40 12/28/17 11:11 95 40 12/28/17 10:00 83 12/28/17 08:00 68 95/49 (64) 91/71 (78) 12/28/17 08:00 98.6 68 20 95/49 (64) 96 91/71 (78) 12/28/17 08:00 68 12/28/17 08:00 40 12/28/17 07:28 97 40 12/28/17 06:00 71 12/28/17 05:01 96 45 12/28/17 04:00 57 12/28/17 04:00 60 89/51 (64) 120/57 (78) 12/28/17 04:00 45 12/28/17 04:00 56 89/51 12/28/17 04:00 55 16 89/51 (64) 97 74/63 (67) 12/28/17 02:00 57 12/28/17 02:00 56 82/57 12/28/17 00:15 97 45 12/28/17 00:01 61 90/47 12/28/17 00:00 45 12/28/17 00:00 79 96/53 (67) 130/56 (80) 12/28/17 00:00 76 12/28/17 00:00 98.2 60 16 96/53 (67) 95 96/41 (59) 12/27/17 23:30 61 108/45 12/27/17 22:00 73 130/66 12/27/17 22:00 67 12/27/17 20:30 78 167/75 12/27/17 20:00 76 12/27/17 20:00 45 12/27/17 20:00 98.0 71 15 132/64 (86) 100 155/78 (103) 12/27/17 20:00 79 124/59 (80) 144/82 (102) 12/27/17 20:00 71 155/78 12/27/17 19:39 97 45 12/27/17 19:00 66 113/68 12/27/17 19:00 66 129/64 12/27/17 18:45 68 119/55 12/27/17 18:00 59 12/27/17 18:00 59 81/44 12/27/17 17:30 59 16 96/54 (68) 96 127/58 (81) 12/27/17 17:15 61 16 94/50 (65) 95 97/78 (84) 12/27/17 17:00 63 27 105/53 (70) 96 97/82 (87) I/O 12/27/17 12/27/17 12/27/17 12/28/17 12/28/17 12/28/17 07:00 15:00 23:00 07:00 15:00 23:00 Intake Total 1176 ml 1135 ml 2208.6 ml 3223 ml 100 ml Output Total 3300 ml 3800 ml 3020.0 ml Balance -2124 ml 1135 ml -1591.4 ml 203.0 ml 100 ml IV Total 810 ml 1135 ml 1638.6 ml 2382 ml 100 ml Tube Feeding 246 ml 450 ml 541 ml Tube Irrigant 120 ml 120 ml Other 300 ml Output Urine Total 2300 ml 2800 ml 2000 ml Stool Total 1000 ml 1000 ml 700 ml Tube Feeding Residual Discard 320.0 ml Physical Exam GENERAL: Intubated, sedated, in Rotoprone SKIN: Warm and dry. HEAD: Normocephalic. EYES: No scleral icterus. No injection or drainage. NECK: Supple, trachea midline. No JVD or lymphadenopathy. CARDIOVASCULAR: Regular rate and rhythm without murmurs, gallops, or rubs. RESPIRATORY: Breath sounds equal bilaterally. No accessory muscle use. Bilat diffuse rhonchi. GASTROINTESTINAL: Abdomen soft, non-tender, nondistended. MUSCULOSKELETAL: No cyanosis, mild edema. Laboratory Laboratory Tests Test 12/27/17 18:05 12/28/17 02:45 12/28/17 03:00 12/28/17 11:40 Stool C. difficile Toxin (PCR) NEGATIVE Stl C. difficile Toxin Epiderm 027 PRESUMPTIVE NEGATIVE White Blood Count 23.7 TH/MM3 Red Blood Count 3.56 MIL/MM3 Hemoglobin 10.5 GM/DL Hematocrit 31.2 % Mean Corpuscular Volume 87.6 FL Mean Corpuscular Hemoglobin 29.5 PG Mean Corpuscular Hemoglobin Concent 33.7 % Red Cell Distribution Width 12.8 % Platelet Count 616 TH/MM3 Mean Platelet Volume 8.5 FL Neutrophils (%) (Auto) 85.6 % Lymphocytes (%) (Auto) 6.4 % Monocytes (%) (Auto) 7.4 % Eosinophils (%) (Auto) 0.3 % Basophils (%) (Auto) 0.3 % Neutrophils # (Auto) 20.2 TH/MM3 Lymphocytes # (Auto) 1.5 TH/MM3 Monocytes # (Auto) 1.8 TH/MM3 Eosinophils # (Auto) 0.1 TH/MM3 Basophils # (Auto) 0.1 TH/MM3 CBC Comment AUTO DIFF Differential Comment AUTO DIFF CONFIRMED Blood Urea Nitrogen 29 MG/DL 30 MG/DL Creatinine 0.62 MG/DL 0.70 MG/DL Random Glucose 167 MG/DL 251 MG/DL Total Protein 5.7 GM/DL 7.1 GM/DL Albumin 1.8 GM/DL 2.3 GM/DL Calcium Level 7.4 MG/DL 8.0 MG/DL Magnesium Level 2.0 MG/DL Alkaline Phosphatase 110 U/L 155 U/L Aspartate Amino Transf (AST/SGOT) 35 U/L 46 U/L Alanine Aminotransferase (ALT/SGPT) 42 U/L 55 U/L Total Bilirubin 0.3 MG/DL 0.3 MG/DL Sodium Level 140 MEQ/L 136 MEQ/L Potassium Level 4.3 MEQ/L 4.1 MEQ/L Chloride Level 101 MEQ/L 95 MEQ/L Carbon Dioxide Level 31.1 MEQ/L 31.2 MEQ/L Anion Gap 8 MEQ/L 10 MEQ/L Estimat Glomerular Filtration Rate 104 ML/MIN 90 ML/MIN Protein Corrected Calcium 8.2 MG/DL Vancomycin Level Trough 18.3 MCG/ML Test 12/28/17 11:55 Urine Color YELLOW Urine Turbidity CLOUDY Urine pH 6.5 Urine Specific [place] 1.016 Urine Protein NEG mg/dL Urine Glucose (UA) NEG mg/dL Urine Ketones NEG mg/dL Urine Occult Blood TRACE Urine Nitrite NEG Urine Bilirubin NEG Urine Urobilinogen LESS THAN 2.0 MG/DL Urine Leukocyte Esterase MOD Urine RBC 66 /hpf Urine WBC 5 /hpf Urine Bacteria MOD /hpf Urine Yeast (Budding) MANY Microscopic Urinalysis Comment CULTURE INDICATED Imaging Last 24 hours Impressions Chest X-Ray 12/28/17 0600 Signed Impressions: Service Date/Time: Thursday, December 28, 2017 09:28 - CONCLUSION: Unchanged right upper lobe infiltrate. Yomi Shipley Jr., MD Assessment and Plan Problem List: (1) Sepsis due to methicillin resistant Staphylococcus aureus (MRSA) ICD Codes: A41.02 - Sepsis due to Methicillin resistant Staphylococcus aureus (2) ARDS (adult respiratory distress syndrome) ICD Codes: J80 - Acute respiratory distress syndrome (3) Bilateral pneumonia ICD Codes: J18.9 - Pneumonia, unspecified organism Status: Acute (4) Acute hypoxemic respiratory failure ICD Codes: J96.01 - Acute respiratory failure with hypoxia (5) Paroxysmal atrial fibrillation ICD Codes: I48.0 - Paroxysmal atrial fibrillation (6) Bradycardia ICD Codes: R00.1 - Bradycardia, unspecified Assessment and Plan BP stable, off pressors. Stays in SR, no recurrent AF. Still has occasional episodes of bradycardia, likely respiratory related. Troponin elevated, but not trending in either direction. JEANINE with no evidence of endocarditis, LV fx preserved. Continue tx for pneumonia/sepsis. Continue current program with ICU care and vent support. Continue monitoring for AF, off sotalol due to bradycardia and hypotension. Valorie Bray MD Dec 28, 2017 16:56
[2017-12-28] MEDS ORDERED: EPOPROSTENOL NEB SOLUTION 30 NG/KG/MIN 100 ML NEB SCH ×2 (17:00)
--- NOTE | 2017-12-28 18:26 | HHI.PR ---
Addendum to Inpatient Note Additional Information Pt seen earliuer today around 1200 Full note to follow Hermila Ramos MD Dec 28, 2017 18:26
--- NOTE | 2017-12-28 18:58 | HHI.PR ---
Subjective Remarks 47 YOWF with VDRF, Sepsis, Pn On Roto bed Sedated Off Nimbex On Levophed Objective Vital Signs Vital Signs Date Time Temp Pulse Resp B/P (MAP) Pulse Ox O2 Delivery O2 Flow Rate FiO2 12/28/17 18:00 96 12/28/17 16:00 40 12/28/17 16:00 82 12/28/17 16:00 82 129/60 (83) 142/68 (92) 12/28/17 16:00 99.3 82 25 129/60 (83) 96 142/68 (92) 12/28/17 14:58 100 40 12/28/17 14:00 97 12/28/17 12:00 99.7 86 24 106/54 (71) 93 122/70 (87) 12/28/17 12:00 86 106/54 (71) 122/70 (87) 12/28/17 12:00 86 12/28/17 12:00 40 12/28/17 11:11 95 40 12/28/17 10:00 83 12/28/17 08:00 68 95/49 (64) 91/71 (78) 12/28/17 08:00 98.6 68 20 95/49 (64) 96 91/71 (78) 12/28/17 08:00 68 12/28/17 08:00 40 12/28/17 07:28 97 40 12/28/17 06:00 71 12/28/17 05:01 96 45 12/28/17 04:00 57 12/28/17 04:00 60 89/51 (64) 120/57 (78) 12/28/17 04:00 45 12/28/17 04:00 56 89/51 12/28/17 04:00 55 16 89/51 (64) 97 74/63 (67) 12/28/17 02:00 57 12/28/17 02:00 56 82/57 12/28/17 00:15 97 45 12/28/17 00:01 61 90/47 12/28/17 00:00 45 12/28/17 00:00 79 96/53 (67) 130/56 (80) 12/28/17 00:00 76 12/28/17 00:00 98.2 60 16 96/53 (67) 95 96/41 (59) 12/27/17 23:30 61 108/45 12/27/17 22:00 73 130/66 12/27/17 22:00 67 12/27/17 20:30 78 167/75 12/27/17 20:00 76 12/27/17 20:00 45 12/27/17 20:00 98.0 71 15 132/64 (86) 100 155/78 (103) 12/27/17 20:00 79 124/59 (80) 144/82 (102) 12/27/17 20:00 71 155/78 12/27/17 19:39 97 45 12/27/17 19:00 66 113/68 12/27/17 19:00 66 129/64 I/O 12/27/17 12/27/17 12/27/17 12/28/17 12/28/17 12/28/17 07:00 15:00 23:00 07:00 15:00 23:00 Intake Total 1176 ml 1135 ml 2208.6 ml 3223 ml 100 ml 1151 ml Output Total 3300 ml 3800 ml 3020.0 ml 4350 ml Balance -2124 ml 1135 ml -1591.4 ml 203.0 ml 100 ml -3199 ml IV Total 810 ml 1135 ml 1638.6 ml 2382 ml 100 ml 972 ml Tube Feeding 246 ml 450 ml 541 ml 59 ml Tube Irrigant 120 ml 120 ml 120 ml Other 300 ml Output Urine Total 2300 ml 2800 ml 2000 ml 3100 ml Stool Total 1000 ml 1000 ml 700 ml 1250 ml Tube Feeding Residual Discard 320.0 ml Result Diagram: 12/28/17 0245 12/28/17 1140 Objective Remarks GENERAL: MBMN WF, on vent, sedated, parlised SKIN: Warm and dry. HEAD: Normocephalic. EYES: No scleral icterus. No injection or drainage. NECK: Supple, trachea midline. No JVD or lymphadenopathy. CARDIOVASCULAR: Regular rate and rhythm without murmurs, gallops, or rubs. RESPIRATORY: Breath sounds equal bilaterally. No accessory muscle use. GASTROINTESTINAL: Abdomen soft, non-tender, nondistended. MUSCULOSKELETAL: No cyanosis, or edema. BACK: Nontender without obvious deformity. No CVA tenderness. A/P Assessment and Plan IMPRESSION: VDRF Sepsis Bilt Pneumonia ARDS PLAN: Cont vent support Sedation with Diprivan, Fentanyl Levophed to support BP Abx vanco, Zyvox, Cefepime per ID. Maik Nolan MD Dec 28, 2017 18:58
[2017-12-28] MEDS: SODIUM CHLORIDE 0.9% FLUSH 10 ML FLUSH IV FLUSH PRN (21:22)
--- NOTE | 2017-12-28 23:44 | HHI.IDPN ---
Subjective Subjective Remarks X cover for Dr Su dX cover for Dr Su delayed entry pt was seen earlier today pt's chart was reviewed improved from resp standpoint now supine Antibiotics vanco zyvox Lines LIJ TLC - 12/21 Past Medical History Anxiety Past Surgical History Cholecystectomy Hysterectomy Allergies: Coded Allergies: No Known Allergies (Unverified , 12/15/17) Objective . Vital Signs Date Time Temp Pulse Resp B/P (MAP) Pulse Ox O2 Delivery O2 Flow Rate FiO2 12/28/17 23:00 104 21 117/56 (76) 93 115/61 (79) 12/28/17 22:00 102 12/28/17 22:00 105 21 117/56 (76) 96 114/60 (78) 12/28/17 21:40 148 12/28/17 21:00 123 26 117/56 (76) 96 130/68 (88) 12/28/17 20:15 99 40 12/28/17 20:00 139 12/28/17 20:00 98.9 139 33 137/69 (91) 86 147/83 (104) 12/28/17 20:00 139 12/28/17 20:00 139 139/67 (91) 147/83 (104) 12/28/17 20:00 100 12/28/17 19:45 40 12/28/17 18:00 96 12/28/17 16:00 40 12/28/17 16:00 82 12/28/17 16:00 82 129/60 (83) 142/68 (92) 12/28/17 16:00 99.3 82 25 129/60 (83) 96 142/68 (92) 12/28/17 14:58 100 40 12/28/17 14:00 97 12/28/17 12:00 99.7 86 24 106/54 (71) 93 122/70 (87) 12/28/17 12:00 86 106/54 (71) 122/70 (87) 12/28/17 12:00 86 12/28/17 12:00 40 12/28/17 11:11 95 40 12/28/17 10:00 83 12/28/17 08:00 68 95/49 (64) 91/71 (78) 12/28/17 08:00 98.6 68 20 95/49 (64) 96 91/71 (78) 12/28/17 08:00 68 12/28/17 08:00 40 12/28/17 07:28 97 40 12/28/17 06:00 71 12/28/17 05:01 96 45 12/28/17 04:00 57 12/28/17 04:00 60 89/51 (64) 120/57 (78) 12/28/17 04:00 45 12/28/17 04:00 56 89/51 12/28/17 04:00 55 16 89/51 (64) 97 74/63 (67) 12/28/17 02:00 57 12/28/17 02:00 56 82/57 12/28/17 00:15 97 45 12/28/17 00:01 61 90/47 12/28/17 00:00 45 12/28/17 00:00 79 96/53 (67) 130/56 (80) 12/28/17 00:00 76 12/28/17 00:00 98.2 60 16 96/53 (67) 95 96/41 (59) 12/28/17 12/28/17 12/29/17 14:59 22:59 06:59 Intake Total 200 ml 1151 ml Output Total 4350 ml Balance 200 ml -3199 ml IV Total 200 ml 972 ml Tube Feeding 59 ml Tube Irrigant 120 ml Output Urine Total 3100 ml Stool Total 1250 ml . Laboratory Tests Test 12/27/17 03:50 12/28/17 02:45 White Blood Count 22.7 TH/MM3 23.7 TH/MM3 Red Blood Count 4.14 MIL/MM3 3.56 MIL/MM3 Hemoglobin 12.2 GM/DL 10.5 GM/DL Hematocrit 36.1 % 31.2 % Mean Corpuscular Volume 87.1 FL 87.6 FL Mean Corpuscular Hemoglobin 29.5 PG 29.5 PG Mean Corpuscular Hemoglobin Concent 33.9 % 33.7 % Red Cell Distribution Width 12.7 % 12.8 % Platelet Count 498 TH/MM3 616 TH/MM3 Mean Platelet Volume 8.6 FL 8.5 FL Neutrophils (%) (Auto) 90.7 % 85.6 % Lymphocytes (%) (Auto) 4.2 % 6.4 % Monocytes (%) (Auto) 4.5 % 7.4 % Eosinophils (%) (Auto) 0.3 % 0.3 % Basophils (%) (Auto) 0.3 % 0.3 % Neutrophils # (Auto) 20.6 TH/MM3 20.2 TH/MM3 Lymphocytes # (Auto) 1.0 TH/MM3 1.5 TH/MM3 Monocytes # (Auto) 1.0 TH/MM3 1.8 TH/MM3 Eosinophils # (Auto) 0.1 TH/MM3 0.1 TH/MM3 Basophils # (Auto) 0.1 TH/MM3 0.1 TH/MM3 CBC Comment AUTO DIFF AUTO DIFF Differential Total Cells Counted 100 Neutrophils % (Manual) 59 % Band Neutrophils % 19 % Lymphocytes % 9 % Monocytes % 8 % Neutrophils # (Manual) 18.8 TH/MM3 Myelocytes 5 % Differential Comment FINAL DIFF MANUAL AUTO DIFF CONFIRMED Platelet Estimate HIGH Platelet Morphology Comment NORMAL Laboratory Tests Test 12/27/17 03:50 12/27/17 16:20 12/28/17 02:45 12/28/17 11:40 Blood Urea Nitrogen 29 MG/DL 29 MG/DL 30 MG/DL Creatinine 0.63 MG/DL 0.62 MG/DL 0.70 MG/DL Random Glucose 158 MG/DL 167 MG/DL 251 MG/DL Total Protein 6.2 GM/DL 5.7 GM/DL 7.1 GM/DL Albumin 1.9 GM/DL 1.8 GM/DL 2.3 GM/DL Calcium Level 7.6 MG/DL 7.4 MG/DL 8.0 MG/DL Magnesium Level 2.1 MG/DL 2.0 MG/DL Alkaline Phosphatase 122 U/L 110 U/L 155 U/L Aspartate Amino Transf (AST/SGOT) 41 U/L 35 U/L 46 U/L Alanine Aminotransferase (ALT/SGPT) 43 U/L 42 U/L 55 U/L Total Bilirubin 0.4 MG/DL 0.3 MG/DL 0.3 MG/DL Sodium Level 140 MEQ/L 140 MEQ/L 136 MEQ/L Potassium Level 4.1 MEQ/L 4.3 MEQ/L 4.1 MEQ/L Chloride Level 101 MEQ/L 101 MEQ/L 95 MEQ/L Carbon Dioxide Level 34.4 MEQ/L 31.1 MEQ/L 31.2 MEQ/L Anion Gap 5 MEQ/L 8 MEQ/L 10 MEQ/L Estimat Glomerular Filtration Rate 102 ML/MIN 104 ML/MIN 90 ML/MIN Lactic Acid Level 1.5 mmol/L Protein Corrected Calcium 8.2 MG/DL Microbiology Date/Time Source Procedure Growth Status 12/27/17 17:15 Blood Peripheral Aerobic Blood Culture - Preliminary NO GROWTH IN 1 DAY Resulted 12/27/17 17:15 Blood Peripheral Anaerobic Blood Culture - Preliminary NO GROWTH IN 1 DAY Resulted 12/27/17 16:58 Blood Peripheral Aerobic Blood Culture - Preliminary NO GROWTH IN 1 DAY Resulted 12/27/17 16:58 Blood Peripheral Anaerobic Blood Culture - Preliminary NO GROWTH IN 1 DAY Resulted 12/27/17 15:40 Sputum Endotracheal Gram Stain - Final Resulted 12/27/17 15:40 Sputum Endotracheal Sputum Culture - Preliminary NO GROWTH IN 24 HOURS. Resulted 12/28/17 11:55 Urine Clean Catch Urine Culture Pending Received Imaging [place] Last Impressions Chest X-Ray 12/28/17 0600 Signed Impressions: Service Date/Time: Thursday, December 28, 2017 09:28 - CONCLUSION: Unchanged right upper lobe infiltrate. Yomi Shipley Jr., MD CT Angiography 12/16/17 0000 Signed Impressions: Service Date/Time: Saturday, December 16, 2017 13:49 - CONCLUSION: 1. Negative for pulmonary emboli. 2. Dense consolidation in the lungs especially the lung bases with several cavitary lesions as above. Findings are most characteristic of pneumonia. Cannot exclude septic embolic disease. No significant effusion. Malachi Hardin MD Physical Exam GENERAL: Sedated, SKIN: Warm and dry. No rash EYES: non icteric ENT: moist mucosae, no thrush NECK: trach in midline CARDIOVASCULAR: Tachycardic, regular rhythm on monitor; no murmurs, rubs gallops well perfused, warm perifery RESPIRATORY: Diffuse rhonchi ABDOMEN: soft , not tender, not distended BS+ Brown liquid stool in Dign[place]ield bag EXTREMITIES: has edema all 4 extremeties : clear yellow urine NEUROLOGICAL: Sedated, off paralytics, follows commands PSYCHIATRIC: Unable to assess LINE: No evidence of infection Assessment & Plan Remarks IMPRESSION Sepsis present, high grade, on admission, has MRSA on blood cultures - S/P arrest Bilateral pneumonia, some with cavitation - C/S with MRSA - CXR worse Very worrisome for endocarditis - clinically , but JEANINE negative Respiratory failure. worsening infiltrates, PNA, ?ARDS Leukocytosis, persistent New issue: hypotension - improved Abx associated diarrhea, c.diff m RECOMMENDATION cont IV vanco cont zyvox cefepime fu P clx will de-escalate abx once final clx chk BC, UA/C+S wili RN @ b/s Hermila Ramos MD Dec 28, 2017 23:44
[2017-12-29] VITALS (26 sets, daily range): BP systolic 85–157; BP diastolic 53–109; PULSE 68–127; RESP 16–50; TEMP 99–99.5; O2SAT 93–100
[2017-12-29] MEDS: fentaNYL DRIP 250 ML IV PRN ×2 (00:10→16:05)
[2017-12-29] MEDS: PROPOFOL 1000 MG/100 ML INJ 100 ML IV PRN ×5 (00:14→21:00)
[2017-12-29] MEDS: RESP: ALBUTEROL 2.5 MG/IPRATROPIUM 0.5 MG NEB (SCH) NEB ×7 (00:16→23:56)
[2017-12-29] MEDS ORDERED: EPOPROSTENOL NEB SOLUTION 20 NG/KG/MIN 100 ML NEB SCH ×4 (01:00→12:00)
[2017-12-29] MEDS: methylPREDNISolone SOD SUCC 40 MG/1 ML VIAL IV PUSH SCH ×3 (01:46→18:20)
[2017-12-29] MEDS: VANCOMYCIN 1,500 MG/NS 500 ML IV SCH ×4 (01:47→17:38)
[2017-12-29] MEDS: LINEZOLID 600 MG PREMIX 300 ML IV SCH ×2 (02:11→17:38)
[2017-12-29] MEDS: CHLORHEXIDINE GLUCONATE 2 % 1 PACK (2 CLOTHS) TOP SCH (04:00)
--- NOTE | 2017-12-29 04:34 | RADRPT ---
EXAM DATE/TIME: 12/29/2017 03:29 [place] COMPARISON: CHEST SINGLE AP, December 28, 2017, 9:28. INDICATIONS : Shortness of breath, followup right upper lobe infiltrate.. MEDICAL HISTORY : Sepsis. Pneumonia SURGICAL HISTORY : None. ENCOUNTER: Subsequent ACUITY: 3 weeks PAIN SCORE: Non-responsive. LOCATION: Bilateral chest FINDINGS: A single AP supine view of the chest was obtained. Endotracheal tube remains in place with the tip ab ove the level of the thoracic inlet approximately 11-12 cm above the magdalena. The nasogastric tube rem ains in place with the tip in the stomach. The left internal jugular central venous line is stable as well. Consolidative opacity remains in the right upper lobe. The heart size is within normal limits. There is no effusion. The bony thorax is intact. There is overlying electrocardiogram leads. CONCLUSION: No significant change. Consolidative opacity remains in the right upper lobe of concern for pneumonia . Andrzej Sahu MD on December 29, 2017 at 4:30 Board Certified Radiologist. This report was verified electronically.
[2017-12-29 05:11] LABS: AUTOMATED NEUTROPHIL # 23.5 TH/MM3 (1.8-7.7); BASOPHIL # 0.1 TH/MM3 (0-0.2); BASOPHIL % 0.4 % (0.0-2.0); EOSINOPHIL % 0.1 % (0.0-4.0); HEMATOCRIT 34.5 % (35.0-46.0); HEMOGLOBIN 11.7 GM/DL (11.6-15.3); LYMPH % 4.4 % (9.0-44.0); LYMPHOCYTE # 1.2 TH/MM3 (1.0-4.8); MEAN CELL VOLUME 87.7 FL (80.0-100.0); MEAN CORPUSCULAR HEMOGLOBIN 29.6 PG (27.0-34.0); MEAN CORPUSCULAR HGB CONC 33.8 % (32.0-36.0); MEAN PLATELET VOLUME 8.6 FL (7.0-11.0); MONO % 7.6 % (0.0-8.0); NEUT % 87.5 % (16.0-70.0); PLATELET COUNT 598 TH/MM3 (150-450); RED BLOOD COUNT 3.94 MIL/MM3 (4.00-5.30); WHITE BLOOD COUNT 26.8 TH/MM3 (4.0-11.0)
[2017-12-29] MEDS: CEFEPIME INJ 2,000 MG in SODIUM CHLORIDE 0.9% INJ 100 ML IV SCH ×3 (05:11→20:58)
[2017-12-29] MEDS: FAMOTIDINE 20 MG/2 ML VIAL IV PUSH SCH ×2 (05:11→17:36)
[2017-12-29] MEDS: HEPARIN SODIUM - SQ 10,000 UNITS/ML VIAL SQ SCH ×3 (05:14→20:59)
[2017-12-29] MEDS: MIDAZOLAM 100 MG/100 ML INJ 100 ML IV PRN (05:15)
[2017-12-29] MEDS: LEVOTHYROXINE SODIUM 25 MCG TAB PO SCH (05:15)
[2017-12-29] MEDS: RESP: BUDESONIDE 0.5 MG/2 ML NEB NEB SCH ×2 (07:22→19:30)
[2017-12-29 07:32] LABS: BANDS 5 % (0-6); LYMPHOCYTES 7 % (9-44); METAMYELOCYTES 4 % (0-1); MONOCYTES 2 % (0-8); MYELOCYTES 2 % (0-0); NEUTROPHIL # MANUAL DIFF 24.4 TH/MM3 (1.8-7.7); POLYS (SEG NEUTROPHILS) 79 % (16-70); PROMYELOCYTES 1 % (0-0)
[2017-12-29] MEDS: CHLORHEXIDINE 0.12% (ORAL KIT) 15 ML CUP MT SCH ×2 (08:00→21:00)
[2017-12-29] MEDS: POLYETHYLENE GLYCOL 17 GM PKG NG SCH ×2 (08:29→20:58)
[2017-12-29] MEDS: MUPIROCIN 2% OINT 1 APPLIC/GM SYR EACH NARE SCH ×2 (08:29→20:59)
[2017-12-29] MEDS: ASPIRIN 81 MG CHEW TAB CHEW SCH (08:29)
[2017-12-29] MEDS: LACTULOSE SYRUP 20 GM/30 ML CUP PO SCH ×4 (08:31→21:00)
[2017-12-29] MEDS: SENNOSIDES SYRUP 8.8 MG/5 ML CUP NG SCH ×2 (08:32→20:58)
[2017-12-29] MEDS: METOCLOPRAMIDE HCL 10 MG/2 ML VIAL IV PUSH SCH ×3 (08:32→23:02)
[2017-12-29] MEDS: DOCUSATE SODIUM 100 MG/10 ML UDC NG SCH ×2 (08:33→21:00)
[2017-12-29] MEDS: FUROSEMIDE 40 MG/4 ML VIAL IV PUSH SCH ×2 (08:33→17:38)
[2017-12-29] MEDS: INSULIN NovoLIN REGULAR SUPPLEMENTAL SCALE SQ SCH ×4 (08:35→18:21)
[2017-12-29] MEDS: SODIUM CHLORIDE 0.9% FLUSH 10 ML FLUSH IV FLUSH SCH ×3 (08:36→21:00)
[2017-12-29] MEDS: ARTIFICIAL TEARS OPTH OINT 3.5 APPLIC/3.5 GM TUBO EACH EYE SCH ×2 (08:36→20:59)
[2017-12-29] MEDS ORDERED: EPOPROSTENOL NEB SOLUTION 10 NG/KG/MIN 100 ML NEB SCH ×4 (09:00→20:00)
[2017-12-29] MEDS: INSULIN DETEMIR 100 UNITS/ML VIAL SQ SCH ×2 (09:33→21:00)
[2017-12-29] MEDS ORDERED: EPOPROSTENOL NEB SOLUTION 30 NG/KG/MIN 100 ML NEB SCH ×2 (11:00)
[2017-12-29] MEDS ORDERED: ALBUMIN 25% INJ 100 ML IV ONE (12:00)
--- NOTE | 2017-12-29 12:06 | HHI.CCPN ---
Subjective Remarks/Hospital Course This is a 47-year-old female with a history of anxiety disorder, that presented to [place] on with complaints of chest pain and dyspnea that has been lasting for the past 4 days. The patient was transferred to [facility]. Imaging and laboratory studies were initially performed which showed a chest x-ray with bilateral patchy airspace consolidation consistent with bronchial pneumonia, and her lactic acid level was noted to be 3.1. The patient's oxygen requirements continue to increase the patient became tachypneic with a respiratory rate in the 40s and tachycardic, heart rate in the 120s. Pulmonology was consulted, CT was performed which revealed no pulmonary emboli , will several cavitary lesions, dense consolidation at both lung bases, air bronchograms and extensive pneumomediastinum extending into the lower neck and upper chest .ICU was requested to see patient. Upon observation the patient was severely dyspneic, with significant accessory muscle movement, violently coughing hemoptysis. Decision made to intubate patient for airway protection. 12/17 Patient is sedated with Diprivan and versed infusion. afebrile. s/p bronch yesterday by Dr. Klein. 12/18 Patient remains sedated with Versed 10mg/hr and Fentanyl 250 mics. Tmax 102.1 yesterday. + MRSA in bronch and GPC/MRSA from [facility] 12/15 from [place] 12/19: Patient developed respiratory distress and SVT this am with vent dyssynchrony with air trapping and elevated peak pressure. FiO2 increased to 100%, started on Nimbex infusion. Intermittently tachycardic, occasional bradycardia also. EKG shows sinus rhythm. Patient is very critical now. Will consult cardiology for JEANINE, and also regarding SVT. Chest x-ray shows worsening bilateral infiltrates concerning for ARDS 12/20: Remains intubated heavily sedated and neuromuscularly paralyzed to maintain ventilator synchrony and control peak pressures. Chest x-ray shows persistent bilateral infiltrates. JEANINE planned for today. All cultures so far positive for MRSA. Tachy Arrhythmia is better controlled after starting sotalol 12/21: CODE BLUE overnight when patient became bradycardic. Received epinephrine with chest compressions with return of spontaneous relief within 5 minutes according to RN. Currently on peripheral dopamine at 10 mcg/kg/min. FiO2 currently at 100%. Chest x-ray revealed worsening diffuse bilateral pulmonary infiltrates 12/22: T-max 101.1 Fahrenheit. Currently 98.9 Fahrenheit. +2493 cc past 24 hours. No bowel movement. Currently on roto-prone bed on epoprostenol at 50, 000 ng/kg/min aerosolized. On tube feeds Glucerna 1.5 at 20 cc an hour. 12/23: Overnight, when switching from supine to prone position patient 32nd episode of asystole resolved without chest compressions. We are currently patient has been prone position again with very slow with and without. Tolerating tube feeds now. Remains on cisatracurium drip at 4 mcg/min 12/24 Patient remains sedated and intubated. On Diprivan, Fentanyl, Versed in addition to Nimbex and Dopamine @5mics. Afebrile. 12/25 No events overnight. Remains sedated, intubated and on Rotoprone bed. On Dopamine 5 mics and Nimbex. T:99.7 12/26: Remains critically ill remains on prone ventilation. I will change on time/supine time to prospectively 5 hours/1 hour cycles. Increase PEEP to 10 to facilitate prolonged weaning. CXR shows persistent consolidation RUL 12/27: Remains critical but oxygenation stable. Off dopamine but hypotensive now with map of 58. Start on Levophed to keep map above 65. Change prone/ supine cycles to 4 hours each. Discontinue prone therapy in the next 24 hours if stable. WBC count is slightly improved 12/28: Transitioned from a prone bed to Roto-Rest today, tolerated well. Remains on Flolan will start weaning today per protocol. Urine output is excellent with Lasix. Remains on Levophed to maintain map above 65. Discontinue Nimbex today Subjective 12/29: hypoxia continues to improve. wbc uptrending, although remains afebrile. cultures NGTD. good diuresis. developing metabolic alkalosis most likely from contraction. Objective Vital Signs Date Time Temp Pulse Resp B/P (MAP) Pulse Ox O2 Delivery O2 Flow Rate FiO2 12/29/17 10:13 95 40 12/29/17 06:00 120 12/29/17 06:00 27 147/68 (94) 154/85 (108) 12/29/17 04:00 99.2 12/25/17 10:33 Ventilator Intake and Output 12/29/17 12/29/17 12/30/17 08:00 16:00 00:00 Intake Total 1988 ml Output Total 3900 ml Balance -1912 ml Result Diagram: 12/29/17 0445 12/28/17 1140 Imaging Last Impressions Chest X-Ray 12/24/17 0600 Signed Impressions: Service Date/Time: Sunday, December 24, 2017 04:53 - CONCLUSION: Persistent dense consolidation right upper lobe and a new small area of consolidation in the left lower lobe. Yomi Lopez MD CT Angiography 12/16/17 0000 Signed Impressions: Service Date/Time: Saturday, December 16, 2017 13:49 - CONCLUSION: 1. Negative for pulmonary emboli. 2. Dense consolidation in the lungs especially the lung bases with several cavitary lesions as above. Findings are most characteristic of pneumonia. Cannot exclude septic embolic disease. No significant effusion. Malachi Hardin MD Objective Remarks GENERAL: 47-year-old female currently in roto-rest bed orotracheally intubated SKIN: Warm and dry. HEAD: Normocephalic. EYES: No scleral icterus. No injection or drainage. ENT: Orotracheally intubated NECK: Supple, trachea midline. Left IJ CVL CARDIOVASCULAR: Currently normal sinus rhythm. RRR. RESPIRATORY: Anterior lung [place] equal breath bilaterally. Bilateral coarse rhonchi and wheezes. GASTROINTESTINAL: Abdomen soft, non-tender, nondistended. MUSCULOSKELETAL: No significant peripheral edema NEURO: Intubated heavily sedated. withdraws to pain. appears to weakly follow commands in the lower extremities. RASS -4. Date of Insertion: Dec 20, 2017 Line: Central Venous Catheter Side: Left Location: Internal, Jugular A/P Problem List: (1) Acute hypoxemic respiratory failure ICD Code: J96.01 - Acute respiratory failure with hypoxia (2) Septic shock due to methicillin resistant Staphylococcus aureus ICD Code: A41.02 - Sepsis due to Methicillin resistant Staphylococcus aureus; R65.21 - Severe sepsis with septic shock (3) Sepsis due to methicillin resistant Staphylococcus aureus (MRSA) ICD Code: A41.02 - Sepsis due to Methicillin resistant Staphylococcus aureus (4) ARDS (adult respiratory distress syndrome) ICD Code: J80 - Acute respiratory distress syndrome (5) Cavitating pneumonia (6) 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 remains very hypoxic in high fio2 and still on rota-rest bed. will attempt to obtain PICC line and d/c cvl today. ongoing diuresis- still not at dry weight. will start short course of diamox to improve contraction alkalosis. has been intubated x 13 days- will need tracheostomy. remains critically ill and off pathway. [facility]. Neuro/Psych: Anxiety disorder THC use On propofol, fentanyl, versed. will attempt to wean versed to off today. daily sedation vacation Patient at risk for CIM however was extremely hypoxic with severe ARDS now requiring prone ventilation UDS: + benzos, cannabinoids Acetaminophen 650 mg liquid by tube every 6 hours as needed fever Respiratory: Acute hypoxemic respiratory failure- persistent. Severe ARDS Small right Pneumothorax Pneumomediastinum Hemoptysis by history Pulmonary cavitary lesions ACV, s/p prone ventilation. remains on rotarest bed. continue rotarest today. will plan to d/c rotarest tomorrow. Ventilator bundle. Albuterol/ipratropium aerosols every 4 hours with albuterol aerosols every 2 hours as needed dyspnea Budesonide 0.5/2 1 inhalation twice daily Methylprednisolone succinate 40 mg IV every 8 hours-reduce to q12 s/p flolan no SBTs given persistent hypoxia. 12/16 -CT Angio - extensive pneumomediastinum extending into neck and upper chest. Dense consolidation at both lung bases, air bronchograms , 2 cavitary lesions 12/16-bronchoscopy performed by Dr. Klein, no active sites noted for bleeding, moderate purulent mucus bilaterally noted 2 BAL samples sent CTS is following for Pneumomediastinum-per Dr. Guadarrama no intervention at this time. Dr. Loja pulmonology following will need tracheostomy- still hypoxic after 14 days. not ready to separate from mechanical ventilation. will plan on trach tomorrow. Cardiovascular: Septic shock- resolved. Bradycardic arrest- resolved. Paroxysmal atrial fibrillation- resolved, no in NSR SVT- resolved. Probable infective endocarditis Elevated troponin- resolved. off vasopressors. On sotalol 40 mg twice daily by Dr. Bray 12/19 Monitor HR and BP keep MAP>65mmHg Transesophageal echocardiogram 12/20 revealed no signs of endocarditis. Preserved LV function. Trace MR/TR Echo 12/17 showed EF 60-65%. Echo 12/21 EF 50%. Cannot rule out regional wall motion and ability Troponin 1.26 from 3.4 and downward trending Aspirin 81 mg p.o. daily FEN/Renal: Hypernatremia- resolved. Acute intravascular volume overload- persistent. Contraction alkalosis Monitor renal function Electrolytes replacement per protocol. Continue Lasix 40mg Q12. Diuresis to dry weight add diamox 500mg iv q8h x 3 doses. albumin 25% 100mL iv x 1 GI: Elevated AST and alkaline phosphatase - improving. Hypoalbuminemia Acute protein calorie malnutrition - moderate On tube feeds-change to Glucerna 1.5 with goal rate 55ml/hr Famotidine 20 mg twice daily GI prophylaxis Docusate sodium/senna 1 tablet twice daily for bowel regimen Having bowel movements ID: MRSA Bacteremia MRSA pneumonia Septic shock- resolved. ABX per ID: Continue IV Vanc, Zyvoxx and Cefepime. ceftaroline Dcd 12/27/17. Cubicin DCd 12/26 by ID JEANINE revealed no signs of endocarditis 12/20 12/15 [facility] from [place]- MRSA 12/16 Bronch BAL- MRSA [facility] 12/16, 12/17 12/18: MRSA Blood culture 12/19 no growth 12/20 sputum/12/21 BAL MRSA influenza, pneumococcal and Legionella antigens- Negative Heme: Leukocytosis Normocytic anemia Monitor CBC. 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 Sliding scale insulin Accu-Cheks every 6 hours to maintain euglycemia/medium regimen and Levemir insulin 8 units subcu twice daily Low free T3 and T4 on levothyroxine 25 mcg daily with low T4. 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 Its more appropriate to work up when she is over the critical illness Prophylaxis: GI Prophylaxis Famotidine IV DVT Prophylaxis -- SCDs -heparin SQ Lines: Left IJ CVL placed 12/21: will need to remove this given persistent leukocytosis. cultures NGTD x >48h. afebrile. will ask PICC team to place PICC line. Critical Care: The total critical care time was 32 minutes. Time to perform other separately billable procedures was not included in the critical care time. Remains critically ill requiring mechanical assistance in the form of rotarest in addition to high vent requirements. still off pathway and not improving as we would expect. Antoine Oliva MD Dec 29, 2017 12:06
[2017-12-29 15:47] LABS: CALCIUM 8.1 MG/DL (8.5-10.1); CREATININE 0.76 MG/DL (0.50-1.00)
[2017-12-30] VITALS (26 sets, daily range): BP systolic 80–152; BP diastolic 45–101; PULSE 61–157; RESP 16–25; TEMP 98.1–99.5; O2SAT 94–100
[2017-12-30] MEDS: VANCOMYCIN 1,500 MG/NS 500 ML IV SCH ×4 (03:24→16:44)
[2017-12-30] MEDS: LINEZOLID 600 MG PREMIX 300 ML IV SCH ×2 (03:24→16:36)
[2017-12-30] MEDS: methylPREDNISolone SOD SUCC 40 MG/1 ML VIAL IV PUSH SCH ×3 (03:24→16:44)
[2017-12-30] MEDS: fentaNYL DRIP 250 ML IV PRN ×2 (03:25→17:04)
[2017-12-30] MEDS: PROPOFOL 1000 MG/100 ML INJ 100 ML IV PRN ×3 (03:25→21:03)
[2017-12-30] MEDS: RESP: ALBUTEROL 2.5 MG/IPRATROPIUM 0.5 MG NEB (SCH) NEB ×4 (03:28→15:28)
[2017-12-30] MEDS: CHLORHEXIDINE GLUCONATE 2 % 1 PACK (2 CLOTHS) TOP SCH (04:00)
[2017-12-30 04:36] LABS: HEMATOCRIT 31.9 % (35.0-46.0); HEMOGLOBIN 10.7 GM/DL (11.6-15.3); MEAN CELL VOLUME 88.2 FL (80.0-100.0); MEAN CORPUSCULAR HEMOGLOBIN 29.5 PG (27.0-34.0); MEAN CORPUSCULAR HGB CONC 33.4 % (32.0-36.0); MEAN PLATELET VOLUME 8.9 FL (7.0-11.0); PLATELET COUNT 503 TH/MM3 (150-450); RED BLOOD COUNT 3.62 MIL/MM3 (4.00-5.30); RED CELL DISTRIBUTION WIDTH 13.2 % (11.6-17.2); WHITE BLOOD COUNT 20.4 TH/MM3 (4.0-11.0)
[2017-12-30] MEDS: HEPARIN SODIUM - SQ 10,000 UNITS/ML VIAL SQ SCH ×2 (04:41→20:00)
[2017-12-30] MEDS: CEFEPIME INJ 2,000 MG in SODIUM CHLORIDE 0.9% INJ 100 ML IV SCH ×2 (04:42→21:04)
[2017-12-30] MEDS: LEVOTHYROXINE SODIUM 25 MCG TAB PO SCH ×2 (04:42→22:26)
[2017-12-30] MEDS: FAMOTIDINE 20 MG/2 ML VIAL IV PUSH SCH ×2 (04:42→16:44)
[2017-12-30 04:51] LABS: BICARBONATE 27.3 MEQ/L (21.0-32.0); CALCIUM 8.2 MG/DL (8.5-10.1); CREATININE 0.67 MG/DL (0.50-1.00)
[2017-12-30] MEDS: INSULIN NovoLIN REGULAR SUPPLEMENTAL SCALE SQ SCH ×3 (05:39→13:04)
[2017-12-30] MEDS: METOCLOPRAMIDE HCL 10 MG/2 ML VIAL IV PUSH SCH ×3 (05:40→21:05)
[2017-12-30] MEDS: RESP: BUDESONIDE 0.5 MG/2 ML NEB NEB SCH ×2 (07:21→20:08)
[2017-12-30] MEDS: ASPIRIN 81 MG CHEW TAB CHEW SCH (07:54)
[2017-12-30] MEDS: DOCUSATE SODIUM 100 MG/10 ML UDC NG SCH ×3 (07:54→21:04)
[2017-12-30] MEDS: LACTULOSE SYRUP 20 GM/30 ML CUP PO SCH ×3 (07:55→21:00)
[2017-12-30] MEDS: SENNOSIDES SYRUP 8.8 MG/5 ML CUP NG SCH ×3 (07:55→21:04)
[2017-12-30] MEDS: FUROSEMIDE 40 MG/4 ML VIAL IV PUSH SCH ×2 (07:56→16:44)
[2017-12-30] MEDS: SODIUM CHLORIDE 0.9% FLUSH 10 ML FLUSH IV FLUSH SCH ×3 (07:56→21:04)
[2017-12-30] MEDS: ARTIFICIAL TEARS OPTH OINT 3.5 APPLIC/3.5 GM TUBO EACH EYE SCH ×2 (07:57→21:06)
[2017-12-30] MEDS: CHLORHEXIDINE 0.12% (ORAL KIT) 15 ML CUP MT SCH ×2 (07:57→21:06)
[2017-12-30] MEDS: MUPIROCIN 2% OINT 1 APPLIC/GM SYR EACH NARE SCH ×2 (07:57→21:05)
[2017-12-30] MEDS: POLYETHYLENE GLYCOL 17 GM PKG NG SCH ×3 (07:58→21:04)
[2017-12-30] MEDS: INSULIN DETEMIR 100 UNITS/ML VIAL SQ SCH (10:34)
[2017-12-30] MEDS: ALPRAZolam 0.5 MG TAB PO PRN (12:02)
[2017-12-30] MEDS ORDERED: ALBUMIN 25% INJ 100 ML IV ONE (13:33)
[2017-12-30] MEDS ORDERED: ALBUMIN 25% INJ 100 ML IV SCH (14:00)
[2017-12-30] MEDS ORDERED: ROCURONIUM INJ 50 MG/5 ML VIAL ONE (14:34)
[2017-12-30] MEDS ORDERED: ROCURONIUM INJ 100 MG/10 ML VIAL IV ONE (15:00)
[2017-12-30] MEDS ORDERED: MIDAZOLAM HCL 5 MG/5 ML VIAL IV PUSH ONE (15:00)
--- NOTE | 2017-12-30 15:30 | PD.PROCEDR ---
Procedure Note Procedure Diagnosis: Hypoxemic respiratory failure J96.01) Operation: Flexible therapeutic bronchoscopy (33733) Procedure: Timeout performed. Patient properly identified. Usual ICU monitoring in place. Patient on mechanical ventilation with a controlled rate. Through a side-port in the ventilator circuit the tracheobronchial tree was inspected. The distal half of the trachea as well as the left and right tracheal bronchial segments were inspected. Viewed were minor amounts of sputum and secondary bronchi which were easily suctioned clean. The anatomical branching pattern is normal. The mucosa of the tracheobronchial tree is clean and minimally inflamed. The orotracheal tube and flexible bronchoscope were then withdrawn together to the level of the cricoid cartilage. The bronchoscope was then used for visualization for a percutaneous tracheostomy insertion dictated by a second team. Immediately upon completion of the percutaneous tracheostomy the tracheobronchial tree was reinspected through the new tracheostomy tube. The new tube was proper properly centered in the mid trachea and well above the magdalena. There was no bleeding. Immediately thereafter the ventilatory circuit was exchanged over to the new tracheostomy tube and good ventilatory volumes were observed. Carbon dioxide return was confirmed by the use of capnography. Oxygen saturation was maintained at greater than 95% throughout the procedure. Elias Millan MD Dec 30, 2017 15:30
--- NOTE | 2017-12-30 15:38 | RADRPT ---
EXAM DATE/TIME: 12/30/2017 15:19 [place] COMPARISON: CHEST SINGLE AP, December 29, 2017, 3:29. INDICATIONS : Post tracheostomy placement. MEDICAL HISTORY : Sepsis. Pneumonia SURGICAL HISTORY : None. ENCOUNTER: Subsequent ACUITY: 2 weeks PAIN SCORE: 0/10 LOCATION: Bilateral chest FINDINGS: The tracheostomy tube and left internal jugular central line are well placed. The heart size is arinana l. There continues to be increased density at the right upper lung extending to the right hilar regio n. This increased density at the medial left base in the retrocardiac area. Significant effusions are not seen. CONCLUSION: 1. Tracheostomy tube in good position. 2. Persistent consolidation in the right upper lung and left medial base. Demarco Trujillo MD on December 30, 2017 at 15:34 Board Certified Radiologist. This report was verified electronically.
--- NOTE | 2017-12-30 17:31 | HHI.CCPN ---
Subjective Remarks/Hospital Course This is a 47-year-old female with a history of anxiety disorder, that presented to [place] on with complaints of chest pain and dyspnea that has been lasting for the past 4 days. The patient was transferred to [facility]. Imaging and laboratory studies were initially performed which showed a chest x-ray with bilateral patchy airspace consolidation consistent with bronchial pneumonia, and her lactic acid level was noted to be 3.1. The patient's oxygen requirements continue to increase the patient became tachypneic with a respiratory rate in the 40s and tachycardic, heart rate in the 120s. Pulmonology was consulted, CT was performed which revealed no pulmonary emboli , will several cavitary lesions, dense consolidation at both lung bases, air bronchograms and extensive pneumomediastinum extending into the lower neck and upper chest .ICU was requested to see patient. Upon observation the patient was severely dyspneic, with significant accessory muscle movement, violently coughing hemoptysis. Decision made to intubate patient for airway protection. 12/17 Patient is sedated with Diprivan and versed infusion. afebrile. s/p bronch yesterday by Dr. Klein. 12/18 Patient remains sedated with Versed 10mg/hr and Fentanyl 250 mics. Tmax 102.1 yesterday. + MRSA in bronch and GPC/MRSA from [facility] 12/15 from [place] 12/19: Patient developed respiratory distress and SVT this am with vent dyssynchrony with air trapping and elevated peak pressure. FiO2 increased to 100%, started on Nimbex infusion. Intermittently tachycardic, occasional bradycardia also. EKG shows sinus rhythm. Patient is very critical now. Will consult cardiology for JEANINE, and also regarding SVT. Chest x-ray shows worsening bilateral infiltrates concerning for ARDS 12/20: Remains intubated heavily sedated and neuromuscularly paralyzed to maintain ventilator synchrony and control peak pressures. Chest x-ray shows persistent bilateral infiltrates. JEANINE planned for today. All cultures so far positive for MRSA. Tachy Arrhythmia is better controlled after starting sotalol 12/21: CODE BLUE overnight when patient became bradycardic. Received epinephrine with chest compressions with return of spontaneous relief within 5 minutes according to RN. Currently on peripheral dopamine at 10 mcg/kg/min. FiO2 currently at 100%. Chest x-ray revealed worsening diffuse bilateral pulmonary infiltrates 12/22: T-max 101.1 Fahrenheit. Currently 98.9 Fahrenheit. +2493 cc past 24 hours. No bowel movement. Currently on roto-prone bed on epoprostenol at 50, 000 ng/kg/min aerosolized. On tube feeds Glucerna 1.5 at 20 cc an hour. 12/23: Overnight, when switching from supine to prone position patient 32nd episode of asystole resolved without chest compressions. We are currently patient has been prone position again with very slow with and without. Tolerating tube feeds now. Remains on cisatracurium drip at 4 mcg/min 12/24 Patient remains sedated and intubated. On Diprivan, Fentanyl, Versed in addition to Nimbex and Dopamine @5mics. Afebrile. 12/25 No events overnight. Remains sedated, intubated and on Rotoprone bed. On Dopamine 5 mics and Nimbex. T:99.7 12/26: Remains critically ill remains on prone ventilation. I will change on time/supine time to prospectively 5 hours/1 hour cycles. Increase PEEP to 10 to facilitate prolonged weaning. CXR shows persistent consolidation RUL 12/27: Remains critical but oxygenation stable. Off dopamine but hypotensive now with map of 58. Start on Levophed to keep map above 65. Change prone/ supine cycles to 4 hours each. Discontinue prone therapy in the next 24 hours if stable. WBC count is slightly improved 12/28: Transitioned from a prone bed to Roto-Rest today, tolerated well. Remains on Flolan will start weaning today per protocol. Urine output is excellent with Lasix. Remains on Levophed to maintain map above 65. Discontinue Nimbex today Subjective 12/29: hypoxia continues to improve. wbc uptrending, although remains afebrile. cultures NGTD. good diuresis. developing metabolic alkalosis most likely from contraction. 12/30: continues to diurese well. off rota-rest bed. on my evaluation today, however, awake and alert, follows commands. cannot lift hands off bed or head off bed at all. severely weak, most likely from critical illness polymyopathy ( prolonged neuromuscular blockade and steroid use). unable to successfully pass SBT. intubation and mechanical ventilation for > 2 weeks. will require tracheostomy to progress care further. Objective Vital Signs Date Time Temp Pulse Resp B/P (MAP) Pulse Ox O2 Delivery O2 Flow Rate FiO2 12/30/17 16:50 98 60 12/30/17 06:00 65 12/30/17 05:00 16 101/51 (68) 93/60 (71) 12/30/17 04:00 99.5 Intake and Output 12/30/17 12/30/17 12/31/17 08:00 16:00 00:00 Intake Total 1921 ml Output Total 600 ml Balance 1321 ml Result Diagram: 12/30/17 0400 12/30/17 0400 Other Results Microbiology Date/Time Source Procedure Growth Status 12/28/17 11:55 Urine Clean Catch Urine Culture - Final Shahnaz Albicans Complete Imaging Last Impressions Chest X-Ray 12/24/17 0600 Signed Impressions: Service Date/Time: Sunday, December 24, 2017 04:53 - CONCLUSION: Persistent dense consolidation right upper lobe and a new small area of consolidation in the left lower lobe. Yomi Lopez MD CT Angiography 12/16/17 0000 Signed Impressions: Service Date/Time: Saturday, December 16, 2017 13:49 - CONCLUSION: 1. Negative for pulmonary emboli. 2. Dense consolidation in the lungs especially the lung bases with several cavitary lesions as above. Findings are most characteristic of pneumonia. Cannot exclude septic embolic disease. No significant effusion. Malachi Hardin MD Objective Remarks GENERAL: 47-year-old female lying in bed. SKIN: Warm and dry. HEAD: Normocephalic. EYES: No scleral icterus. No injection or drainage. ENT: Orotracheally intubated NECK: Supple, trachea midline. Left IJ CVL CARDIOVASCULAR: Currently normal sinus rhythm. RRR. RESPIRATORY: Anterior lung [place] equal breath bilaterally. Bilateral coarse rhonchi and wheezes. GASTROINTESTINAL: Abdomen soft, non-tender, nondistended. MUSCULOSKELETAL: No significant peripheral edema NEURO: RASS -1. follows commands. globally very weak. cannot lift head off bed. cannot lift hands off bed. Date of Insertion: Dec 20, 2017 Line: Central Venous Catheter Side: Left Location: Internal, Jugular A/P Problem List: (1) Acute hypoxemic respiratory failure ICD Code: J96.01 - Acute respiratory failure with hypoxia (2) Septic shock due to methicillin resistant Staphylococcus aureus ICD Code: A41.02 - Sepsis due to Methicillin resistant Staphylococcus aureus; R65.21 - Severe sepsis with septic shock (3) Sepsis due to methicillin resistant Staphylococcus aureus (MRSA) ICD Code: A41.02 - Sepsis due to Methicillin resistant Staphylococcus aureus (4) ARDS (adult respiratory distress syndrome) ICD Code: J80 - Acute respiratory distress syndrome (5) Cavitating pneumonia (6) 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 will require tracheostomy today. otherwise continue forced diuresis as Cr has not risen yet, still not at dry weight. Neuro/Psych: Anxiety disorder THC use Critical Illness Polyneuropathy On propofol, fentanyl daily sedation vacation Patient at risk for CIM however was extremely hypoxic with severe ARDS now requiring prone ventilation will need aggressive PT/OT. UDS: + benzos, cannabinoids Acetaminophen 650 mg liquid by tube every 6 hours as needed fever Respiratory: Acute hypoxemic respiratory failure- persistent. Severe ARDS Small right Pneumothorax Pneumomediastinum Hemoptysis by history Pulmonary cavitary lesions ACV, s/p prone ventilation. Ventilator bundle. Albuterol/ipratropium aerosols every 4 hours with albuterol aerosols every 2 hours as needed dyspnea Budesonide 0.5/2 1 inhalation twice daily Methylprednisolone succinate 40 mg IV every 8 hours-reduce to q12 s/p flolan 12/16 -CT Angio - extensive pneumomediastinum extending into neck and upper chest. Dense consolidation at both lung bases, air bronchograms , 2 cavitary lesions 12/16-bronchoscopy performed by Dr. Klein, no active sites noted for bleeding, moderate purulent mucus bilaterally noted 2 BAL samples sent CTS is following for Pneumomediastinum-per Dr. Guadarrama no intervention at this time. Dr. Loja pulmonology following trach today at bedside. start SBTs after this. Cardiovascular: Septic shock- resolved. Bradycardic arrest- resolved. Paroxysmal atrial fibrillation- resolved, no in NSR SVT- resolved. Probable infective endocarditis Elevated troponin- resolved. off vasopressors. On sotalol 40 mg twice daily by Dr. Bray 12/19 Monitor HR and BP keep MAP>65mmHg Transesophageal echocardiogram 12/20 revealed no signs of endocarditis. Preserved LV function. Trace MR/TR Echo 12/17 showed EF 60-65%. Echo 12/21 EF 50%. Cannot rule out regional wall motion and ability Troponin 1.26 from 3.4 and downward trending Aspirin 81 mg p.o. daily FEN/Renal: Hypernatremia- resolved. Acute intravascular volume overload- persistent. Contraction alkalosis Monitor renal function Electrolytes replacement per protocol. Continue Lasix 40mg Q12. Diuresis to dry weight diamox 500mg iv q8h x 3 doses. albumin 25% 100mL iv x 1 GI: Elevated AST and alkaline phosphatase - improving. Hypoalbuminemia Acute protein calorie malnutrition - moderate On tube feeds-change to Glucerna 1.5 with goal rate 55ml/hr Famotidine 20 mg twice daily GI prophylaxis Docusate sodium/senna 1 tablet twice daily for bowel regimen Having bowel movements ID: MRSA Bacteremia MRSA pneumonia Septic shock- resolved. ABX per ID: Continue IV Vanc, Zyvoxx and Cefepime. ceftaroline Dcd 12/27/17. Cubicin DCd 12/26 by ID JEANINE revealed no signs of endocarditis 12/20 12/15 [facility] from [place]- MRSA 12/16 Bronch BAL- MRSA [facility] 12/16, 12/17 12/18: MRSA Blood culture 12/19 no growth 12/20 sputum/12/21 BAL MRSA influenza, pneumococcal and Legionella antigens- Negative Heme: Leukocytosis Normocytic anemia Monitor CBC. 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 Sliding scale insulin Accu-Cheks every 6 hours to maintain euglycemia/medium regimen and Levemir insulin 8 units subcu twice daily Low free T3 and T4 on levothyroxine 25 mcg daily with low T4. 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 Its more appropriate to work up when she is over the critical illness Prophylaxis: GI Prophylaxis Famotidine IV DVT Prophylaxis -- SCDs -heparin SQ Lines: Left IJ CVL placed 12/21: PICC team will not place PICC line unless 3 sets of negative cultures. will keep CVL in place until vasopressors no longer needed. Antoine Oliva MD Dec 30, 2017 17:31
--- NOTE | 2017-12-30 17:32 | PD.PROCEDR ---
Procedure Note Procedure Percutaneous Dilation Tracheostomy Tube Placement Diagnosis: Cavitary pneumonia Indications: Chronic respiratory failure requiring greater than 14 days of mechanical ventilation Anesthesia: Versed 10 mill grams IV, propofol 50 mg IV Neuromuscular Blockade: Rocuronium 100 mg IV Anesthesia was provided by the bedside RN Description of the Procedure: The patient was sedated and paralyzed. The patient was positioned in the supine position with a chest roll. The patient's neck was slightly extended. Landmarks were palpated and the anatomy of the anterior neck was deemed normal. A time out procedure was performed. The patient was placed on a volume control mode of ventilation, on 100% FiO2. The patient was prepped and draped sterilely. A bronchoscope was inserted into the endotracheal tube for endoscopic guidance (see separate bronchoscopy procedure note). After negative aspiration, 1% lidocaine with 1:100k epinephrine was injected subcutaneously in the midline neck using a 21g needle for local anesthesia. An approximately 2cm skin incision was made using a #15 blade. The cricoid cartilage, thyroid tissue , and tracheal rings were palpated in the midline. Under direct bronchoscopic guidance, the cuff of the endotracheal tube was deflated and the endotracheal tube was retracted to a level above the level of the skin incision. At this point, a 15g introducer needle/catheter was advanced midline under negative aspiration with saline filled syringe until bubbles were seen and the needle and catheter were visualized in the lumen of the trachea. The needle was withdrawn leaving the catheter in place. A 0.052 in diameter J-shaped guidewire was advanced through the catheter into the lumen of the trachea, under direct bronchoscopic visualization. Using a modified Seldinger technique , a 14 Fr, 4.5 cm introducer dilator was used, followed by a Blue Rhino Percutaneous Tracheostomy Dilator, and finally a 28 Fr tracheostomy loading catheter with 8.0 Cuffed Shiley tracheostomy tube. The loading catheter and guidewire were removed and the tracheostomy tube was confirmed in the lumen of the trachea with bronchoscopy, end-tidal CO2, and returning volumes on the ventilator. The tracheostomy was sewn to the skin with interrupted 2.0 Prolene sutures, and a tracheostomy tie was applied to the skin. There were no immediate complications. There was minimal EBL. A chest x-ray has been ordered. Insecticide Sprayer: Dr. Kodi Millan I personally performed the procedure. Antoine Oliva MD Dec 30, 2017 17:32
[2017-12-31] VITALS (21 sets, daily range): BP systolic 85–191; BP diastolic 46–118; PULSE 59–162; RESP 16–39; TEMP 98.5–99.6; O2SAT 94–100
[2017-12-31] MEDS: INSULIN NovoLIN REGULAR SUPPLEMENTAL SCALE SQ SCH ×3 (00:12→18:00)
[2017-12-31] MEDS: INSULIN DETEMIR 100 UNITS/ML VIAL SQ SCH ×3 (00:12→21:00)
[2017-12-31] MEDS: PROPOFOL 1000 MG/100 ML INJ 100 ML IV PRN ×3 (01:18→10:05)
[2017-12-31] MEDS: fentaNYL DRIP 250 ML IV PRN ×2 (01:19→06:16)
[2017-12-31] MEDS: VANCOMYCIN 1,500 MG/NS 500 ML IV SCH ×4 (03:05→15:02)
[2017-12-31] MEDS: methylPREDNISolone SOD SUCC 40 MG/1 ML VIAL IV PUSH SCH ×3 (03:05→18:00)
[2017-12-31] MEDS: LINEZOLID 600 MG PREMIX 300 ML IV SCH ×2 (03:06→15:02)
[2017-12-31] MEDS: CHLORHEXIDINE GLUCONATE 2 % 1 PACK (2 CLOTHS) TOP SCH (04:00)
[2017-12-31] MEDS: HEPARIN SODIUM - SQ 10,000 UNITS/ML VIAL SQ SCH ×3 (04:00→23:17)
[2017-12-31] MEDS: CEFEPIME INJ 2,000 MG in SODIUM CHLORIDE 0.9% INJ 100 ML IV SCH ×3 (04:52→23:18)
[2017-12-31] MEDS: FAMOTIDINE 20 MG/2 ML VIAL IV PUSH SCH ×2 (04:52→17:00)
[2017-12-31 05:42] LABS: BICARBONATE 26.2 MEQ/L (21.0-32.0); CALCIUM 7.9 MG/DL (8.5-10.1); CREATININE 0.62 MG/DL (0.50-1.00)
[2017-12-31 06:50] LABS: HEMOGLOBIN 9.7 GM/DL (11.6-15.3); MEAN CELL VOLUME 89.2 FL (80.0-100.0); MEAN CORPUSCULAR HEMOGLOBIN 29.9 PG (27.0-34.0); MEAN CORPUSCULAR HGB CONC 33.5 % (32.0-36.0); MEAN PLATELET VOLUME 8.7 FL (7.0-11.0); PLATELET COUNT 495 TH/MM3 (150-450); RED BLOOD COUNT 3.25 MIL/MM3 (4.00-5.30); RED CELL DISTRIBUTION WIDTH 12.9 % (11.6-17.2); WHITE BLOOD COUNT 19.6 TH/MM3 (4.0-11.0)
[2017-12-31] MEDS: METOCLOPRAMIDE HCL 10 MG/2 ML VIAL IV PUSH SCH ×3 (07:00→23:19)
[2017-12-31] MEDS: POTASSIUM CHLOR 40 MEQ PREMIX 100 ML IV PRN ×2 (07:22→09:33)
[2017-12-31] MEDS: RESP: BUDESONIDE 0.5 MG/2 ML NEB NEB SCH ×2 (07:45→19:54)
[2017-12-31] MEDS: CHLORHEXIDINE 0.12% (ORAL KIT) 15 ML CUP MT SCH ×2 (08:00→23:17)
[2017-12-31] MEDS: DOCUSATE SODIUM 100 MG/10 ML UDC NG SCH (08:28)
[2017-12-31] MEDS: FUROSEMIDE 40 MG/4 ML VIAL IV PUSH SCH ×2 (08:28→19:27)
[2017-12-31] MEDS: LACTULOSE SYRUP 20 GM/30 ML CUP PO SCH ×3 (08:29→18:00)
[2017-12-31] MEDS: POLYETHYLENE GLYCOL 17 GM PKG NG SCH (08:29)
[2017-12-31] MEDS: SENNOSIDES SYRUP 8.8 MG/5 ML CUP NG SCH (08:29)
[2017-12-31] MEDS: SODIUM CHLORIDE 0.9% FLUSH 10 ML FLUSH IV FLUSH SCH ×3 (08:30→23:18)
[2017-12-31] MEDS: ARTIFICIAL TEARS OPTH OINT 3.5 APPLIC/3.5 GM TUBO EACH EYE SCH ×2 (08:31→23:18)
[2017-12-31] MEDS: ASPIRIN 81 MG CHEW TAB CHEW SCH (08:31)
[2017-12-31] MEDS: MUPIROCIN 2% OINT 1 APPLIC/GM SYR EACH NARE SCH ×2 (08:31→21:00)
--- NOTE | 2017-12-31 12:41 | PD.CARD.PN ---
Subjective Subjective Remarks On the vent, s/p trach placement, VSS, no bradyarrhythmias or a fib Objective Medications Current Medications Medications (Trade) Dose Ordered Sig/Marily Route Start Time Stop Time Status Last Admin (NS Flush) 2 ml UNSCH PRN IV FLUSH 12/15/17 22:30 (NS Flush) 2 ml BID IV FLUSH 12/16/17 09:00 12/31/17 08:30 (Robitussin Dm 200-20 Mg/10 ml Liq) 10 ml Q4H PRN PO 12/15/17 22:30 Future Hold (Heparin Inj) 5,000 units Q8H SQ 12/16/17 12:00 12/30/17 04:41 (Morphine Inj) 1 mg Q4H PRN IM 12/16/17 09:15 Future Hold 12/16/17 10:11 (Mucinex Er) 600 mg BID PO 12/16/17 09:15 Future Hold 12/16/17 10:51 Propofol 100 ml @ 2.1 mls/hr TITRATE PRN IV 12/16/17 14:45 12/31/17 10:05 Fentanyl Citrate 250 ml @ 5 mls/hr TITRATE PRN IV 12/16/17 16:30 12/31/17 06:16 (Pepcid Inj) 20 mg Q12H IV PUSH 12/16/17 17:00 12/31/17 04:52 Miscellaneous Information 1 Q361D XX 12/16/17 16:45 (Chlorhexidine 2% Cloth) Taper DAILY@04 TOP 12/17/17 04:00 12/13/18 03:59 12/27/17 03:30 (Chlorhexidine 2% Cloth) 3 pack UNSCH PRN TOP 12/16/17 16:45 (Milk Of Magnesia Liq) 30 ml Q12H PRN PO 12/16/17 16:45 (Senokot) 17.2 mg Q12H PRN PO 12/16/17 16:45 12/28/17 08:39 (Dulcolax Supp) 10 mg DAILY PRN RECTAL 12/16/17 16:45 (Lactulose Liq) 30 ml DAILY PRN PO 12/16/17 16:45 (Peridex 0.12% Liq) 15 ml BID@08,20 MT 12/16/17 20:00 12/31/17 08:00 Midazolam HCl 100 ml @ 2 mls/hr TITRATE PRN IV 12/16/17 17:30 12/29/17 05:15 Potassium Chloride 100 ml @ 50 mls/hr Q2H PRN IV 12/17/17 07:45 12/31/17 09:33 Potassium Chloride 100 ml @ 50 mls/hr Q2H PRN IV 12/17/17 07:45 (K-Lyte Cl Eff) 50 meq UNSCH PRN PO 12/17/17 07:45 Potassium Chloride 100 ml @ 25 mls/hr UNSCH PRN IV 12/17/17 07:45 Potassium Chloride 100 ml @ 50 mls/hr Q2H PRN IV 12/17/17 07:45 Magnesium Sulfate 4 gm/Sodium Chloride 100 ml @ 50 mls/hr UNSCH PRN IV 12/17/17 07:45 (Mag-Ox) 800 mg UNSCH PRN PO 12/17/17 07:45 Magnesium Sulfate 2 gm/Sodium Chloride 100 ml @ 50 mls/hr UNSCH PRN IV 12/17/17 07:45 (K-Phos) 2,000 mg Q4H PRN PO 12/17/17 07:45 12/17/17 23:49 Sodium Phosphate 30 mmol/Sodium Chloride 250 ml @ 42 mls/hr UNSCH PRN IV 12/17/17 07:45 12/18/17 08:40 (K-Phos) 2,000 mg UNSCH PRN PO/TUBE 12/17/17 07:45 Potassium Phosphate 30 mmol/ Sodium Chloride 260 ml @ 42 mls/hr UNSCH PRN IV 12/17/17 07:45 12/19/17 07:57 (Albuterol Neb) 2.5 mg Q2HR NEB PRN NEB 12/21/17 08:30 12/26/17 07:12 (Pulmicort Respule Neb) 0.5 mg Q12HR NEB NEB 12/21/17 20:00 12/31/17 07:45 (NS Flush) DAILY IV FLUSH 12/22/17 09:00 12/31/17 09:00 (NS Flush) UNSCH PRN IV FLUSH 12/21/17 09:15 12/28/17 21:22 (Bactroban Nasal 2% Oint) Taper BID EACH NARE 12/21/17 21:00 12/17/18 20:59 12/31/17 08:31 (Lacrilube Opht Oint) 1 applic Q12HR EACH EYE 12/21/17 10:00 12/31/17 08:31 (D50w (Vial) Inj) 50 ml UNSCH PRN IV PUSH 12/21/17 09:15 (Glucagon Inj) 1 mg UNSCH PRN OTHER 12/21/17 09:15 (NovoLIN R SUPPLEMENTAL SCALE) 1 Q6HR SQ 12/21/17 12:00 12/31/17 00:12 (Tylenol 650 Mg/ 20 ml Liq) 650 mg Q6H PRN NG 12/21/17 09:30 12/22/17 16:14 (Pill Splitter) 1 ea UNSCH PRN OTHER 12/21/17 21:00 (Aspirin Chew) 81 mg DAILY CHEW 12/22/17 09:00 12/30/17 07:54 (Cathflo Activase Inj) 2 mg Q2H PRN INTRACATH 12/22/17 14:15 12/22/17 14:37 (Synthroid) 25 mcg DAILY@0600 PO 12/23/17 06:00 12/30/17 04:42 (Colace Liq) 100 mg Q12HR NG 12/23/17 21:00 12/30/17 07:54 (Senna Liq) 8.8 mg BID NG 12/23/17 21:00 12/30/17 07:55 (Miralax) 17 gm BID NG 12/23/17 21:00 12/30/17 07:58 (Lactulose Liq) 30 ml QID PO 12/23/17 13:00 12/30/17 07:55 (Levemir Inj) 8 units Q12HR SQ 12/23/17 21:00 12/31/17 08:27 (Lasix Inj) 40 mg BID@,18 IV PUSH 12/24/17 09:00 12/31/17 08:28 (Reglan Inj) 5 mg Q8H PRN IV PUSH 12/24/17 17:45 12/27/17 01:50 (SoluMEDROL INJ) 40 mg Q8H IV PUSH 12/25/17 10:00 12/31/17 10:00 Pharmacy Profile Note 0 ml @ 0 mls/hr UNSCH OTHER 12/26/17 14:15 Vancomycin HCl 1500 mg/Sodium Chloride 515 ml @ 257.5 mls/ hr Q12H IV 12/27/17 03:00 12/31/17 03:05 Norepinephrine Bitartrate 4 mg/ Sodium Chloride 250 ml @ 7.5 mls/hr TITRATE PRN IV 12/27/17 08:15 12/27/17 08:45 (Brethine Inj) 1 mg UNSCH PRN SQ 12/27/17 08:15 Linezolid 300 ml @ 300 mls/hr Q12H IV 12/27/17 15:00 12/31/17 03:06 Cefepime HCl 2000 mg/Sodium Chloride 100 ml @ 200 mls/hr Q8H IV 12/27/17 14:00 12/31/17 04:52 (Reglan Inj) 5 mg Q8H IV PUSH 12/28/17 15:00 12/31/17 07:00 (Xanax) 0.5 mg Q8H PRN PO 12/30/17 11:00 12/30/17 12:02 Miscellaneous Information SPECIFIC LAB TO BE ANABELLA... ONCE ONCE .XX 01/01/18 02:45 01/01/18 02:46 Vital Signs / I&O Vital Signs Date Time Temp Pulse Resp B/P (MAP) Pulse Ox O2 Delivery O2 Flow Rate FiO2 12/31/17 11:02 98 40 12/31/17 10:00 98.6 61 16 117/68 (84) 97 12/31/17 10:00 79 12/31/17 08:00 86 132/70 (90) 152/101 (118) 12/31/17 08:00 98.6 61 16 117/68 (84) 97 12/31/17 08:00 40 12/31/17 08:00 79 12/31/17 07:57 79 12/31/17 07:57 98.6 61 16 117/68 (84) 97 12/31/17 07:45 100 40 12/31/17 06:00 69 31 106/51 (69) 97 136/71 (92) 12/31/17 06:00 64 12/31/17 05:00 59 16 98/52 (67) 100 123/66 (85) 12/31/17 04:00 40 12/31/17 04:00 61 12/31/17 04:00 61 91/49 (63) 123/64 (83) 12/31/17 04:00 98.5 63 16 91/49 (63) 100 108/59 (75) 12/31/17 03:22 99 40 12/31/17 03:00 65 16 86/50 (62) 99 103/60 (74) 12/31/17 02:00 63 12/31/17 02:00 69 16 85/46 (59) 99 96/59 (71) 12/31/17 01:00 69 16 96/48 (64) 98 100/59 (73) 12/31/17 00:04 98 50 12/31/17 00:00 68 96/48 (64) 90/56 (67) 12/31/17 00:00 40 12/31/17 00:00 98.7 72 16 95/53 (67) 100 112/64 (80) 12/31/17 00:00 69 12/30/17 23:00 75 16 107/51 (69) 100 134/71 (92) 12/30/17 22:00 76 12/30/17 22:00 80 17 104/54 (71) 100 127/67 (87) 12/30/17 21:00 76 16 100/54 (69) 100 115/64 (81) 12/30/17 20:09 100 50 12/30/17 20:00 98.1 80 16 94/49 (64) 100 104/60 (75) 12/30/17 20:00 67 104/54 (71) 135/70 (91) 12/30/17 20:00 50 12/30/17 20:00 79 12/30/17 18:00 78 12/30/17 16:50 98 60 12/30/17 16:00 99.1 93 16 110/53 (72) 98 101/56 (71) 12/30/17 16:00 93 12/30/17 16:00 40 12/30/17 16:00 86 110/53 (72) 101/56 (71) 12/30/17 15:00 99 100 12/30/17 14:00 157 12/30/17 13:15 100 100 I/O 3/25/18 312/30/17 12/31/17 12/31/17 12/31/17 07:00 15:00 23:00 07:00 15:00 23:00 Intake Total 1921 ml 307.2 ml 2118 ml 1360 ml Output Total 600 ml 3804 ml 2550 ml Balance 1321 ml 307.2 ml -1686 ml -1190 ml Intake Oral 0 ml IV Total 1521 ml 307.2 ml 1879 ml 1360 ml Tube Feeding 200 ml 89 ml 0 ml Other 200 ml 150 ml 0 ml Output Urine Total 100 ml 3404 ml 2150 ml Stool Total 500 ml 400 ml 400 ml Physical Exam GENERAL: Trach in place, on the vent SKIN: Warm and dry. HEAD: Normocephalic. EYES: No scleral icterus. No injection or drainage. NECK: Supple, trachea midline. No JVD or lymphadenopathy. CARDIOVASCULAR: Regular rate and rhythm without murmurs, gallops, or rubs. RESPIRATORY: Breath sounds equal bilaterally. No accessory muscle use. Bilat diffuse rhonchi. GASTROINTESTINAL: Abdomen soft, non-tender, nondistended. MUSCULOSKELETAL: No cyanosis, no edema. Laboratory Laboratory Tests Test 12/31/17 04:25 White Blood Count 19.6 TH/MM3 Red Blood Count 3.25 MIL/MM3 Hemoglobin 9.7 GM/DL Hematocrit 29.0 % Mean Corpuscular Volume 89.2 FL Mean Corpuscular Hemoglobin 29.9 PG Mean Corpuscular Hemoglobin Concent 33.5 % Red Cell Distribution Width 12.9 % Platelet Count 495 TH/MM3 Mean Platelet Volume 8.7 FL Blood Urea Nitrogen 26 MG/DL Creatinine 0.62 MG/DL Random Glucose 227 MG/DL Calcium Level 7.9 MG/DL Sodium Level 138 MEQ/L Potassium Level 3.1 MEQ/L Chloride Level 103 MEQ/L Carbon Dioxide Level 26.2 MEQ/L Anion Gap 9 MEQ/L Estimat Glomerular Filtration Rate 104 ML/MIN Assessment and Plan Problem List: (1) Sepsis due to methicillin resistant Staphylococcus aureus (MRSA) ICD Codes: A41.02 - Sepsis due to Methicillin resistant Staphylococcus aureus (2) ARDS (adult respiratory distress syndrome) ICD Codes: J80 - Acute respiratory distress syndrome (3) Bilateral pneumonia ICD Codes: J18.9 - Pneumonia, unspecified organism Status: Acute (4) Acute hypoxemic respiratory failure ICD Codes: J96.01 - Acute respiratory failure with hypoxia (5) Paroxysmal atrial fibrillation ICD Codes: I48.0 - Paroxysmal atrial fibrillation (6) Bradycardia ICD Codes: R00.1 - Bradycardia, unspecified Assessment and Plan S/p trach, continue vent support. BP stable, off pressors. Stays in SR, no recurrent AF. JEANINE with no evidence of endocarditis, LV fx preserved. Continue tx for pneumonia/sepsis. Continue current program with ICU care. Continue monitoring for AF, off sotalol due to bradycardia and hypotension. Valorie Bray MD Dec 31, 2017 12:41
[2017-12-31] MEDS: RESP: ALBUTEROL 2.5 MG/3 ML NEB (PRN) NEB (14:54)
--- NOTE | 2017-12-31 16:01 | HHI.CCPN ---
Subjective Remarks/Hospital Course This is a 47-year-old female with a history of anxiety disorder, that presented to [place] on with complaints of chest pain and dyspnea that has been lasting for the past 4 days. The patient was transferred to [facility]. Imaging and laboratory studies were initially performed which showed a chest x-ray with bilateral patchy airspace consolidation consistent with bronchial pneumonia, and her lactic acid level was noted to be 3.1. The patient's oxygen requirements continue to increase the patient became tachypneic with a respiratory rate in the 40s and tachycardic, heart rate in the 120s. Pulmonology was consulted, CT was performed which revealed no pulmonary emboli , will several cavitary lesions, dense consolidation at both lung bases, air bronchograms and extensive pneumomediastinum extending into the lower neck and upper chest .ICU was requested to see patient. Upon observation the patient was severely dyspneic, with significant accessory muscle movement, violently coughing hemoptysis. Decision made to intubate patient for airway protection. 12/17 Patient is sedated with Diprivan and versed infusion. afebrile. s/p bronch yesterday by Dr. Klein. 12/18 Patient remains sedated with Versed 10mg/hr and Fentanyl 250 mics. Tmax 102.1 yesterday. + MRSA in bronch and GPC/MRSA from [facility] 12/15 from [place] 12/19: Patient developed respiratory distress and SVT this am with vent dyssynchrony with air trapping and elevated peak pressure. FiO2 increased to 100%, started on Nimbex infusion. Intermittently tachycardic, occasional bradycardia also. EKG shows sinus rhythm. Patient is very critical now. Will consult cardiology for JEANINE, and also regarding SVT. Chest x-ray shows worsening bilateral infiltrates concerning for ARDS 12/20: Remains intubated heavily sedated and neuromuscularly paralyzed to maintain ventilator synchrony and control peak pressures. Chest x-ray shows persistent bilateral infiltrates. JEANINE planned for today. All cultures so far positive for MRSA. Tachy Arrhythmia is better controlled after starting sotalol 12/21: CODE BLUE overnight when patient became bradycardic. Received epinephrine with chest compressions with return of spontaneous relief within 5 minutes according to RN. Currently on peripheral dopamine at 10 mcg/kg/min. FiO2 currently at 100%. Chest x-ray revealed worsening diffuse bilateral pulmonary infiltrates 12/22: T-max 101.1 Fahrenheit. Currently 98.9 Fahrenheit. +2493 cc past 24 hours. No bowel movement. Currently on roto-prone bed on epoprostenol at 50, 000 ng/kg/min aerosolized. On tube feeds Glucerna 1.5 at 20 cc an hour. 12/23: Overnight, when switching from supine to prone position patient 32nd episode of asystole resolved without chest compressions. We are currently patient has been prone position again with very slow with and without. Tolerating tube feeds now. Remains on cisatracurium drip at 4 mcg/min 12/24 Patient remains sedated and intubated. On Diprivan, Fentanyl, Versed in addition to Nimbex and Dopamine @5mics. Afebrile. 12/25 No events overnight. Remains sedated, intubated and on Rotoprone bed. On Dopamine 5 mics and Nimbex. T:99.7 12/26: Remains critically ill remains on prone ventilation. I will change on time/supine time to prospectively 5 hours/1 hour cycles. Increase PEEP to 10 to facilitate prolonged weaning. CXR shows persistent consolidation RUL 12/27: Remains critical but oxygenation stable. Off dopamine but hypotensive now with map of 58. Start on Levophed to keep map above 65. Change prone/ supine cycles to 4 hours each. Discontinue prone therapy in the next 24 hours if stable. WBC count is slightly improved 12/28: Transitioned from a prone bed to Roto-Rest today, tolerated well. Remains on Flolan will start weaning today per protocol. Urine output is excellent with Lasix. Remains on Levophed to maintain map above 65. Discontinue Nimbex today Subjective 12/29: hypoxia continues to improve. wbc uptrending, although remains afebrile. cultures NGTD. good diuresis. developing metabolic alkalosis most likely from contraction. 12/30: continues to diurese well. off rota-rest bed. on my evaluation today, however, awake and alert, follows commands. cannot lift hands off bed or head off bed at all. severely weak, most likely from critical illness polymyopathy ( prolonged neuromuscular blockade and steroid use). unable to successfully pass SBT. intubation and mechanical ventilation for > 2 weeks. will require tracheostomy to progress care further. 12/31: Status post trach yesterday. Tolerating SBT. Continues to have significant neuromuscular weakness. Attempt 2-4hour T piece today Objective Vital Signs Date Time Temp Pulse Resp B/P (MAP) Pulse Ox O2 Delivery O2 Flow Rate FiO2 12/31/17 14:00 100 12/31/17 12:00 40 12/31/17 12:00 130/81 (97) 127/63 (84) 12/31/17 12:00 98.6 16 97 Intake and Output 12/31/17 12/31/17 01/01/18 08:00 16:00 00:00 Intake Total 1360 ml Output Total 2550 ml Balance -1190 ml Result Diagram: 12/31/17 0425 12/31/17 0425 Imaging Last Impressions Chest X-Ray 12/24/17 0600 Signed Impressions: Service Date/Time: Sunday, December 24, 2017 04:53 - CONCLUSION: Persistent dense consolidation right upper lobe and a new small area of consolidation in the left lower lobe. Yomi Lopez MD CT Angiography 12/16/17 0000 Signed Impressions: Service Date/Time: Saturday, December 16, 2017 13:49 - CONCLUSION: 1. Negative for pulmonary emboli. 2. Dense consolidation in the lungs especially the lung bases with several cavitary lesions as above. Findings are most characteristic of pneumonia. Cannot exclude septic embolic disease. No significant effusion. Malachi Hardin MD Objective Remarks GENERAL: 47-year-old female lying in bed. SKIN: Warm and dry. HEAD: Normocephalic. EYES: No scleral icterus. No injection or drainage. ENT: Oral cavity is moist NECK: Supple, trachea midline. Left IJ CVL. New trach in place without significant bleeding CARDIOVASCULAR: Currently normal sinus rhythm. RRR. RESPIRATORY: Anterior lung [place] equal breath bilaterally. Bilateral coarse rhonchi and wheezes. GASTROINTESTINAL: Abdomen soft, non-tender, nondistended. MUSCULOSKELETAL: No significant peripheral edema NEURO: RASS -0. follows commands. globally very weak. cannot lift head off bed. cannot lift hands off bed. Muscle power generally 3 out of 5 Date of Insertion: Dec 20, 2017 Line: Central Venous Catheter Side: Left Location: Internal, Jugular A/P Problem List: (1) Acute hypoxemic respiratory failure ICD Code: J96.01 - Acute respiratory failure with hypoxia (2) Septic shock due to methicillin resistant Staphylococcus aureus ICD Code: A41.02 - Sepsis due to Methicillin resistant Staphylococcus aureus; R65.21 - Severe sepsis with septic shock (3) Sepsis due to methicillin resistant Staphylococcus aureus (MRSA) ICD Code: A41.02 - Sepsis due to Methicillin resistant Staphylococcus aureus (4) ARDS (adult respiratory distress syndrome) ICD Code: J80 - Acute respiratory distress syndrome (5) Cavitating pneumonia (6) 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 will require tracheostomy today. otherwise continue forced diuresis as Cr has not risen yet, still not at dry weight. Neuro/Psych: Critical Illness Polyneuropathy Anxiety disorder THC use On propofol, fentanyl-wean to DC daily sedation vacation Patient at risk for CIM however was extremely hypoxic with severe ARDS now requiring prone ventilation will need aggressive PT/OT. UDS: + benzos, cannabinoids Acetaminophen 650 mg liquid by tube every 6 hours as needed fever Respiratory: Acute hypoxemic respiratory failure- persistent. Severe ARDS Small right Pneumothorax Pneumomediastinum Hemoptysis by history Pulmonary cavitary lesions ACV, s/p prone ventilation. s/p trach 12/30/17 Ventilator bundle. Albuterol/ipratropium aerosols every 4 hours with albuterol aerosols every 2 hours as needed dyspnea Budesonide 0.5/2 1 inhalation twice daily Methylprednisolone succinate 40 mg IV every 8 hours-reduced to q12 s/p flolan 12/16 -CT Angio - extensive pneumomediastinum extending into neck and upper chest. Dense consolidation at both lung bases, air bronchograms , 2 cavitary lesions 12/16-bronchoscopy performed by Dr. Klein, no active sites noted for bleeding, moderate purulent mucus bilaterally noted 2 BAL samples sent CTS is following for Pneumomediastinum-per Dr. Guadarrama no intervention at this time. Dr. Loja pulmonology following Tolerating SBT, place on T piece 2-4 hours today increase T piece time as tolerated Cardiovascular: Septic shock- resolved. Bradycardic arrest- resolved. Paroxysmal atrial fibrillation- resolved, no in NSR SVT- resolved. Probable infective endocarditis Elevated troponin- resolved. off vasopressors. On sotalol 40 mg twice daily by Dr. Bray 12/19 Monitor HR and BP keep MAP>65mmHg Transesophageal echocardiogram 12/20 revealed no signs of endocarditis. Preserved LV function. Trace MR/TR Echo 12/17 showed EF 60-65%. Echo 12/21 EF 50%. Cannot rule out regional wall motion and ability Troponin 1.26 from 3.4 and downward trending Aspirin 81 mg p.o. daily FEN/Renal: Hypernatremia- resolved. Acute intravascular volume overload- persistent. Contraction alkalosis Monitor renal function Electrolytes replacement per protocol. Continue Lasix 40mg Q12. Diuresis to dry weight diamox 500mg iv q8h x 3 doses. albumin 25% 100mL iv x 1 GI: Elevated AST and alkaline phosphatase - improving. Hypoalbuminemia Acute protein calorie malnutrition - moderate On tube feeds-change to Glucerna 1.5 with goal rate 55ml/hr Famotidine 20 mg twice daily GI prophylaxis Docusate sodium/senna 1 tablet twice daily for bowel regimen Having bowel movements Speech eval ID: MRSA Bacteremia MRSA pneumonia Septic shock- resolved. ABX per ID: Continue IV Vanc, Zyvox and Cefepime. ceftaroline Dcd 12/27/17. Cubicin DCd 12/26 by ID JEANINE revealed no signs of endocarditis 12/20 12/15 BC from [place]- MRSA 12/16 Bronch BAL- MRSA BC 12/16, 12/17 12/18: MRSA Blood culture 12/19 no growth 12/20 sputum/12/21 BAL MRSA influenza, pneumococcal and Legionella antigens- Negative Heme: Leukocytosis Normocytic anemia Monitor CBC. 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 Sliding scale insulin Accu-Cheks every 6 hours to maintain euglycemia/medium regimen and Levemir insulin 8 units subcu twice daily Low free T3 and T4 on levothyroxine 25 mcg daily with low T4. 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 Its more appropriate to work up when she is over the critical illness Prophylaxis: GI Prophylaxis Famotidine IV DVT Prophylaxis -- SCDs -heparin SQ Lines: Left IJ CVL placed 12/21: PICC team will not place PICC line unless 3 sets of negative cultures. Keep CVL in place until vasopressors no longer needed. Maribel Pal MD Dec 31, 2017 16:01
[2018-01-01] VITALS (18 sets, daily range): BP systolic 77–129; BP diastolic 54–119; PULSE 95–146; RESP 19–43; TEMP 98.8–100; O2SAT 93–97
[2018-01-01] MEDS: methylPREDNISolone SOD SUCC 40 MG/1 ML VIAL IV PUSH SCH ×3 (01:00→16:15)
[2018-01-01] MEDS: INSULIN NovoLIN REGULAR SUPPLEMENTAL SCALE SQ SCH ×5 (01:00→23:38)
[2018-01-01] MEDS ORDERED: PHARMACY ORDERED LAB ONE (02:45)
[2018-01-01] MEDS: LINEZOLID 600 MG PREMIX 300 ML IV SCH ×2 (03:11→14:12)
[2018-01-01] MEDS: VANCOMYCIN 1,500 MG/NS 500 ML IV SCH ×2 (03:11)
[2018-01-01] MEDS: CHLORHEXIDINE GLUCONATE 2 % 1 PACK (2 CLOTHS) TOP SCH (04:00)
--- NOTE | 2018-01-01 04:29 | RADRPT ---
EXAM DATE/TIME: 01/01/2018 02:48 [place] COMPARISON: CHEST SINGLE AP, December 30, 2017, 15:19. INDICATIONS : Short of breath. MEDICAL HISTORY : Sepsis. Pneumonia SURGICAL HISTORY : None. ENCOUNTER: Subsequent ACUITY: 2 weeks PAIN SCORE: 0/10 LOCATION: Bilateral chest FINDINGS: A single view of the chest demonstrates better aeration of the right lung. Minimal bibasilar densitie s. Heart normal size. Tracheostomy tube and left jugular central line in stable position. Nasogastric tube with tip in stomach. This could be slightly advanced as the sidehole is at the GE junction. Os seous structures are intact. CONCLUSION: Improved aeration of the right lung with minimal bibasilar densities. Miguel Lynne MD on January 01, 2018 at 4:26 Board Certified Radiologist. This report was verified electronically.
[2018-01-01] MEDS: METOCLOPRAMIDE HCL 10 MG/2 ML VIAL IV PUSH SCH ×3 (05:07→21:03)
[2018-01-01] MEDS: LEVOTHYROXINE SODIUM 25 MCG TAB PO SCH (05:07)
[2018-01-01] MEDS: HEPARIN SODIUM - SQ 10,000 UNITS/ML VIAL SQ SCH ×3 (05:08→19:53)
[2018-01-01] MEDS: FAMOTIDINE 20 MG/2 ML VIAL IV PUSH SCH (05:08)
[2018-01-01] MEDS: CEFEPIME INJ 2,000 MG in SODIUM CHLORIDE 0.9% INJ 100 ML IV SCH (05:09)
[2018-01-01 05:49] LABS: AUTOMATED NEUTROPHIL # 26.8 TH/MM3 (1.8-7.7); BASOPHIL % 0.1 % (0.0-2.0); HEMATOCRIT 35.3 % (35.0-46.0); HEMOGLOBIN 12.1 GM/DL (11.6-15.3); LYMPH % 4.3 % (9.0-44.0); LYMPHOCYTE # 1.3 TH/MM3 (1.0-4.8); MEAN CELL VOLUME 86.8 FL (80.0-100.0); MEAN CORPUSCULAR HEMOGLOBIN 29.7 PG (27.0-34.0); MEAN CORPUSCULAR HGB CONC 34.2 % (32.0-36.0); MEAN PLATELET VOLUME 8.6 FL (7.0-11.0); MONO % 5.6 % (0.0-8.0); MONOCYTE # 1.7 TH/MM3 (0-0.9); PLATELET COUNT 706 TH/MM3 (150-450); RED BLOOD COUNT 4.06 MIL/MM3 (4.00-5.30); RED CELL DISTRIBUTION WIDTH 13.2 % (11.6-17.2); WHITE BLOOD COUNT 29.8 TH/MM3 (4.0-11.0)
[2018-01-01 06:27] LABS: ALBUMIN 3.2 GM/DL (3.4-5.0); AST (GOT) 26 U/L (15-37); BICARBONATE 24.2 MEQ/L (21.0-32.0); BLOOD UREA NITROGEN 26 MG/DL (7-18); CALCIUM 8.7 MG/DL (8.5-10.1); CHLORIDE 101 MEQ/L (98-107); CREATININE 0.71 MG/DL (0.50-1.00); GLOMERULAR FILTRATION RATE 89 ML/MIN (>89); GLUCOSE,RANDOM 263 MG/DL (74-106); SODIUM (NA) 135 MEQ/L (136-145)
[2018-01-01 06:31] LABS: ALKALINE PHOSPHATASE 118 U/L (45-117); ALT (GPT) 42 U/L (10-53); TOTAL BILIRUBIN ADULT 0.8 MG/DL (0.2-1.0); TOTAL PROTEIN 7.7 GM/DL (6.4-8.2)
[2018-01-01 07:17] LABS: BANDS 13 % (0-6); CORRECTED NUCLEATED RBC 1 /100 WBC (0-0); LYMPHOCYTES 5 % (9-44); METAMYELOCYTES 1 % (0-1); MONOCYTES 3 % (0-8); MYELOCYTES 3 % (0-0); NEUTROPHIL # MANUAL DIFF 27.4 TH/MM3 (1.8-7.7); NUCLEATED RED BLOOD CELL 1 (0-0); POLYS (SEG NEUTROPHILS) 75 % (16-70)
[2018-01-01] MEDS: MUPIROCIN 2% OINT 1 APPLIC/GM SYR EACH NARE SCH ×2 (09:00→19:53)
[2018-01-01] MEDS: RESP: BUDESONIDE 0.5 MG/2 ML NEB NEB SCH ×2 (09:12→20:21)
[2018-01-01] MEDS: INSULIN DETEMIR 100 UNITS/ML VIAL SQ SCH ×2 (09:45→19:54)
[2018-01-01] MEDS: SODIUM CHLORIDE 0.9% FLUSH 10 ML FLUSH IV FLUSH SCH ×3 (09:45→19:54)
[2018-01-01] MEDS: FUROSEMIDE 40 MG/4 ML VIAL IV PUSH SCH ×2 (09:45→16:15)
[2018-01-01] MEDS: ASPIRIN 81 MG CHEW TAB CHEW SCH (09:46)
[2018-01-01] MEDS: CHLORHEXIDINE 0.12% (ORAL KIT) 15 ML CUP MT SCH ×2 (09:47→19:53)
[2018-01-01] MEDS: ARTIFICIAL TEARS OPTH OINT 3.5 APPLIC/3.5 GM TUBO EACH EYE SCH ×2 (09:48→19:53)
--- NOTE | 2018-01-01 09:58 | HHI.IDPN ---
Subjective Subjective Remarks Patient is a 47-year-old female, who initially presented to the [facility] ED complaining of 4 day history of chest pain and shortness of breath. In have any other history. She was apparently coughing and was bringing up some brownish phlegm. There was no mention of any fever or chills. No nausea or vomiting. No urinary complaints. Chest x-ray showed bilateral patchy basilar infiltrates. CTA did not show any pulmonary embolism, showed bilateral infiltrates with some cavitary lesions noted. She was transferred to the main hospital, and she apparently had some blood in the sputum. She ended up getting intubated. [facility] did bronchoscopy on her. Patient currently sedated postintubation. Her blood pressure is okay and she is not hypotensive. She is tachycardic. Infectious disease consultation has been requested to evaluate the patient with pneumonia Notes reviewed Temps ok BP ok Off rotaprone bed On CPAP Awake, not SOB, no abdominal pain S/P trach 12/30 WBC higher today Last CXR better Antibiotics vanco IV zyvox Cefepime Current Medications Medications (Trade) Dose Ordered Sig/Marily Route Start Time Stop Time Status Last Admin (NS Flush) 2 ml UNSCH PRN IV FLUSH 12/15/17 22:30 (NS Flush) 2 ml BID IV FLUSH 12/16/17 09:00 12/31/17 23:18 (Robitussin Dm 200-20 Mg/10 ml Liq) 10 ml Q4H PRN PO 12/15/17 22:30 Future Hold (Heparin Inj) 5,000 units Q8H SQ 12/16/17 12:00 01/01/18 05:08 (Morphine Inj) 1 mg Q4H PRN IM 12/16/17 09:15 Future Hold 12/16/17 10:11 (Mucinex Er) 600 mg BID PO 12/16/17 09:15 Future Hold 12/16/17 10:51 Propofol 100 ml @ 2.1 mls/hr TITRATE PRN IV 12/16/17 14:45 12/31/17 10:05 Fentanyl Citrate 250 ml @ 5 mls/hr TITRATE PRN IV 12/16/17 16:30 12/31/17 06:16 Miscellaneous Information 1 Q361D XX 12/16/17 16:45 (Chlorhexidine 2% Cloth) Taper DAILY@04 TOP 12/17/17 04:00 12/13/18 03:59 12/27/17 03:30 (Chlorhexidine 2% Cloth) 3 pack UNSCH PRN TOP 12/16/17 16:45 (Milk Of Magnesia Liq) 30 ml Q12H PRN PO 12/16/17 16:45 (Senokot) 17.2 mg Q12H PRN PO 12/16/17 16:45 12/28/17 08:39 (Dulcolax Supp) 10 mg DAILY PRN RECTAL 12/16/17 16:45 (Lactulose Liq) 30 ml DAILY PRN PO 12/16/17 16:45 (Peridex 0.12% Liq) 15 ml BID@08,20 MT 12/16/17 20:00 12/31/17 23:17 Midazolam HCl 100 ml @ 2 mls/hr TITRATE PRN IV 12/16/17 17:30 12/29/17 05:15 Potassium Chloride 100 ml @ 50 mls/hr Q2H PRN IV 12/17/17 07:45 12/31/17 09:33 Potassium Chloride 100 ml @ 50 mls/hr Q2H PRN IV 12/17/17 07:45 (K-Lyte Cl Eff) 50 meq UNSCH PRN PO 12/17/17 07:45 Potassium Chloride 100 ml @ 25 mls/hr UNSCH PRN IV 12/17/17 07:45 01/01/18 07:03 Potassium Chloride 100 ml @ 50 mls/hr Q2H PRN IV 12/17/17 07:45 Magnesium Sulfate 4 gm/Sodium Chloride 100 ml @ 50 mls/hr UNSCH PRN IV 12/17/17 07:45 (Mag-Ox) 800 mg UNSCH PRN PO 12/17/17 07:45 Magnesium Sulfate 2 gm/Sodium Chloride 100 ml @ 50 mls/hr UNSCH PRN IV 12/17/17 07:45 (K-Phos) 2,000 mg Q4H PRN PO 12/17/17 07:45 12/17/17 23:49 Sodium Phosphate 30 mmol/Sodium Chloride 250 ml @ 42 mls/hr UNSCH PRN IV 12/17/17 07:45 12/18/17 08:40 (K-Phos) 2,000 mg UNSCH PRN PO/TUBE 12/17/17 07:45 Potassium Phosphate 30 mmol/ Sodium Chloride 260 ml @ 42 mls/hr UNSCH PRN IV 12/17/17 07:45 12/19/17 07:57 (Albuterol Neb) 2.5 mg Q2HR NEB PRN NEB 12/21/17 08:30 12/31/17 14:54 (Pulmicort Respule Neb) 0.5 mg Q12HR NEB NEB 12/21/17 20:00 01/01/18 09:12 (NS Flush) DAILY IV FLUSH 12/22/17 09:00 12/31/17 09:00 (NS Flush) UNSCH PRN IV FLUSH 12/21/17 09:15 12/28/17 21:22 (Bactroban Nasal 2% Oint) Taper BID EACH NARE 12/21/17 21:00 12/17/18 20:59 12/31/17 08:31 (Lacrilube Opht Oint) 1 applic Q12HR EACH EYE 12/21/17 10:00 12/31/17 23:18 (D50w (Vial) Inj) 50 ml UNSCH PRN IV PUSH 12/21/17 09:15 (Glucagon Inj) 1 mg UNSCH PRN OTHER 12/21/17 09:15 (NovoLIN R SUPPLEMENTAL SCALE) 1 Q6HR SQ 12/21/17 12:00 01/01/18 05:07 (Tylenol 650 Mg/ 20 ml Liq) 650 mg Q6H PRN NG 12/21/17 09:30 12/22/17 16:14 (Pill Splitter) 1 ea UNSCH PRN OTHER 12/21/17 21:00 (Aspirin Chew) 81 mg DAILY CHEW 12/22/17 09:00 12/30/17 07:54 (Cathflo Activase Inj) 2 mg Q2H PRN INTRACATH 12/22/17 14:15 12/22/17 14:37 (Synthroid) 25 mcg DAILY@0600 PO 12/23/17 06:00 01/01/18 05:07 (Levemir Inj) 8 units Q12HR SQ 12/23/17 21:00 12/31/17 08:27 (Lasix Inj) 40 mg BID@18 IV PUSH 12/24/17 09:00 12/31/17 19:27 (Reglan Inj) 5 mg Q8H PRN IV PUSH 12/24/17 17:45 12/27/17 01:50 (SoluMEDROL INJ) 40 mg Q8H IV PUSH 12/25/17 10:00 01/01/18 01:00 Pharmacy Profile Note 0 ml @ 0 mls/hr UNSCH OTHER 12/26/17 14:15 Norepinephrine Bitartrate 4 mg/ Sodium Chloride 250 ml @ 7.5 mls/hr TITRATE PRN IV 12/27/17 08:15 12/27/17 08:45 (Brethine Inj) 1 mg UNSCH PRN SQ 12/27/17 08:15 Linezolid 300 ml @ 300 mls/hr Q12H IV 12/27/17 15:00 01/01/18 03:11 Cefepime HCl 2000 mg/Sodium Chloride 100 ml @ 200 mls/hr Q8H IV 12/27/17 14:00 01/01/18 05:09 (Reglan Inj) 5 mg Q8H IV PUSH 12/28/17 15:00 01/01/18 05:07 (Xanax) 0.5 mg Q8H PRN PO 12/30/17 11:00 12/30/17 12:02 Vancomycin/Sodium Chloride 200 ml @ 200 mls/hr Q12H IV 01/01/18 22:00 Miscellaneous Information SPECIFIC LAB TO BE DRAWN:VANCOMYCIN TROUGH DATE TO... ONCE ONCE .XX 01/03/18 09:45 01/03/18 09:46 (Pepcid) 20 mg BID PO 01/01/18 21:00 Lines [facility] TLC - 12/21 Past Medical History Anxiety Past Surgical History Cholecystectomy Hysterectomy Allergies: Coded Allergies: No Known Allergies (Unverified , 12/15/17) Objective . Vital Signs Date Time Temp Pulse Resp B/P (MAP) Pulse Ox O2 Delivery O2 Flow Rate FiO2 01/01/18 09:13 96 40 01/01/18 09:13 40 01/01/18 06:00 122 01/01/18 04:00 103 77/73 (74) 01/01/18 04:00 40 01/01/18 04:00 98.8 103 21 77/73 (74) 97 01/01/18 04:00 104 01/01/18 03:50 95 40 01/01/18 02:00 100 01/01/18 00:47 95 40 01/01/18 00:00 40 01/01/18 00:00 105 01/01/18 00:00 99.7 105 19 90/82 (85) 94 01/01/18 00:00 105 90/82 (85) 12/31/17 22:00 112 12/31/17 20:00 40 12/31/17 20:00 162 191/118 (142) 12/31/17 20:00 162 12/31/17 20:00 99.6 162 39 191/118 (142) 94 12/31/17 19:54 95 40 12/31/17 18:00 100 12/31/17 16:00 40 12/31/17 16:00 86 130/81 (97) 127/63 (84) 12/31/17 16:00 98.6 91 16 153/74 (100) 97 12/31/17 16:00 100 12/31/17 14:00 100 12/31/17 12:00 40 12/31/17 12:00 100 12/31/17 12:00 86 130/81 (97) 127/63 (84) 12/31/17 12:00 98.6 82 16 114/72 (86) 97 12/31/17 11:02 98 40 12/31/17 10:00 98.6 61 16 117/68 (84) 97 12/31/17 10:00 79 . Laboratory Tests Test 12/31/17 04:25 01/01/18 04:45 White Blood Count 19.6 TH/MM3 29.8 TH/MM3 Red Blood Count 3.25 MIL/MM3 4.06 MIL/MM3 Hemoglobin 9.7 GM/DL 12.1 GM/DL Hematocrit 29.0 % 35.3 % Mean Corpuscular Volume 89.2 FL 86.8 FL Mean Corpuscular Hemoglobin 29.9 PG 29.7 PG Mean Corpuscular Hemoglobin Concent 33.5 % 34.2 % Red Cell Distribution Width 12.9 % 13.2 % Platelet Count 495 TH/MM3 706 TH/MM3 Mean Platelet Volume 8.7 FL 8.6 FL Neutrophils (%) (Auto) 90.0 % Lymphocytes (%) (Auto) 4.3 % Monocytes (%) (Auto) 5.6 % Eosinophils (%) (Auto) 0.0 % Basophils (%) (Auto) 0.1 % Neutrophils # (Auto) 26.8 TH/MM3 Lymphocytes # (Auto) 1.3 TH/MM3 Monocytes # (Auto) 1.7 TH/MM3 Eosinophils # (Auto) 0.0 TH/MM3 Basophils # (Auto) 0.0 TH/MM3 CBC Comment AUTO DIFF Differential Total Cells Counted 100 Neutrophils % (Manual) 75 % Band Neutrophils % 13 % Lymphocytes % 5 % Monocytes % 3 % Neutrophils # (Manual) 27.4 TH/MM3 Metamyelocytes 1 % Myelocytes 3 % Nucleated Red Blood Cells 1 /100 WBC Differential Comment FINAL DIFF MANUAL Platelet Estimate HIGH Platelet Morphology Comment NORMAL Red Cell Morphology Comment NORMAL Laboratory Tests Test 12/31/17 04:25 01/01/18 04:45 Blood Urea Nitrogen 26 MG/DL 26 MG/DL Creatinine 0.62 MG/DL 0.71 MG/DL Random Glucose 227 MG/DL 263 MG/DL Calcium Level 7.9 MG/DL 8.7 MG/DL Sodium Level 138 MEQ/L 135 MEQ/L Potassium Level 3.1 MEQ/L 3.4 MEQ/L Chloride Level 103 MEQ/L 101 MEQ/L Carbon Dioxide Level 26.2 MEQ/L 24.2 MEQ/L Anion Gap 9 MEQ/L 10 MEQ/L Estimat Glomerular Filtration Rate 104 ML/MIN 89 ML/MIN Total Protein 7.7 GM/DL Albumin 3.2 GM/DL Alkaline Phosphatase 118 U/L Aspartate Amino Transf (AST/SGOT) 26 U/L Alanine Aminotransferase (ALT/SGPT) 42 U/L Total Bilirubin 0.8 MG/DL Imaging [place] Last Impressions Chest X-Ray 12/28/17 0600 Signed Impressions: Service Date/Time: Thursday, December 28, 2017 09:28 - CONCLUSION: Unchanged right upper lobe infiltrate. Yomi Shipley Jr., MD CT Angiography 12/16/17 0000 Signed Impressions: Service Date/Time: Saturday, December 16, 2017 13:49 - CONCLUSION: 1. Negative for pulmonary emboli. 2. Dense consolidation in the lungs especially the lung bases with several cavitary lesions as above. Findings are most characteristic of pneumonia. Cannot exclude septic embolic disease. No significant effusion. Malachi Hardin MD Physical Exam GENERAL: Awake and following commands, cant move BUE but moving toes SKIN: Warm and dry. 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 worsening infiltrates, PNA, ?ARDS Leukocytosis, persistent New issue: hypotension - improved Abx associated diarrhea, c.diff m RECOMMENDATION Continue zyvox Continue IV Vanco Stop cefepime Add Diflucan Follow C/S Monitor progress Weaning per CCM Follow CBC D/W Liliam Ritchie MD Jan 01, 2018 09:58
--- NOTE | 2018-01-01 10:44 | PD.CARD.PN ---
Subjective Subjective Remarks Awake, on the vent, s/p trach placement, tele with no bradyarrhythmias or a fib Objective Medications Current Medications Medications (Trade) Dose Ordered Sig/Marily Route Start Time Stop Time Status Last Admin (NS Flush) 2 ml UNSCH PRN IV FLUSH 12/15/17 22:30 (NS Flush) 2 ml BID IV FLUSH 12/16/17 09:00 01/01/18 09:45 (Robitussin Dm 200-20 Mg/10 ml Liq) 10 ml Q4H PRN PO 12/15/17 22:30 Future Hold (Heparin Inj) 5,000 units Q8H SQ 12/16/17 12:00 01/01/18 05:08 (Morphine Inj) 1 mg Q4H PRN IM 12/16/17 09:15 Future Hold 12/16/17 10:11 (Mucinex Er) 600 mg BID PO 12/16/17 09:15 Future Hold 12/16/17 10:51 Propofol 100 ml @ 2.1 mls/hr TITRATE PRN IV 12/16/17 14:45 12/31/17 10:05 Fentanyl Citrate 250 ml @ 5 mls/hr TITRATE PRN IV 12/16/17 16:30 12/31/17 06:16 Miscellaneous Information 1 Q361D XX 12/16/17 16:45 (Chlorhexidine 2% Cloth) Taper DAILY@04 TOP 12/17/17 04:00 12/13/18 03:59 12/27/17 03:30 (Chlorhexidine 2% Cloth) 3 pack UNSCH PRN TOP 12/16/17 16:45 (Milk Of Magnesia Liq) 30 ml Q12H PRN PO 12/16/17 16:45 (Senokot) 17.2 mg Q12H PRN PO 12/16/17 16:45 12/28/17 08:39 (Dulcolax Supp) 10 mg DAILY PRN RECTAL 12/16/17 16:45 (Lactulose Liq) 30 ml DAILY PRN PO 12/16/17 16:45 (Peridex 0.12% Liq) 15 ml BID@08,20 MT 12/16/17 20:00 01/01/18 09:47 Midazolam HCl 100 ml @ 2 mls/hr TITRATE PRN IV 12/16/17 17:30 12/29/17 05:15 Potassium Chloride 100 ml @ 50 mls/hr Q2H PRN IV 12/17/17 07:45 12/31/17 09:33 Potassium Chloride 100 ml @ 50 mls/hr Q2H PRN IV 12/17/17 07:45 (K-Lyte Cl Eff) 50 meq UNSCH PRN PO 12/17/17 07:45 Potassium Chloride 100 ml @ 25 mls/hr UNSCH PRN IV 12/17/17 07:45 01/01/18 07:03 Potassium Chloride 100 ml @ 50 mls/hr Q2H PRN IV 12/17/17 07:45 Magnesium Sulfate 4 gm/Sodium Chloride 100 ml @ 50 mls/hr UNSCH PRN IV 12/17/17 07:45 (Mag-Ox) 800 mg UNSCH PRN PO 12/17/17 07:45 Magnesium Sulfate 2 gm/Sodium Chloride 100 ml @ 50 mls/hr UNSCH PRN IV 12/17/17 07:45 (K-Phos) 2,000 mg Q4H PRN PO 12/17/17 07:45 12/17/17 23:49 Sodium Phosphate 30 mmol/Sodium Chloride 250 ml @ 42 mls/hr UNSCH PRN IV 12/17/17 07:45 12/18/17 08:40 (K-Phos) 2,000 mg UNSCH PRN PO/TUBE 12/17/17 07:45 Potassium Phosphate 30 mmol/ Sodium Chloride 260 ml @ 42 mls/hr UNSCH PRN IV 12/17/17 07:45 12/19/17 07:57 (Albuterol Neb) 2.5 mg Q2HR NEB PRN NEB 12/21/17 08:30 12/31/17 14:54 (Pulmicort Respule Neb) 0.5 mg Q12HR NEB NEB 12/21/17 20:00 01/01/18 09:12 (NS Flush) DAILY IV FLUSH 12/22/17 09:00 01/01/18 09:45 (NS Flush) UNSCH PRN IV FLUSH 12/21/17 09:15 12/28/17 21:22 (Bactroban Nasal 2% Oint) Taper BID EACH NARE 12/21/17 21:00 12/17/18 20:59 12/31/17 08:31 (Lacrilube Opht Oint) 1 applic Q12HR EACH EYE 12/21/17 10:00 01/01/18 09:48 (D50w (Vial) Inj) 50 ml UNSCH PRN IV PUSH 12/21/17 09:15 (Glucagon Inj) 1 mg UNSCH PRN OTHER 12/21/17 09:15 (NovoLIN R SUPPLEMENTAL SCALE) 1 Q6HR SQ 12/21/17 12:00 01/01/18 05:07 (Tylenol 650 Mg/ 20 ml Liq) 650 mg Q6H PRN NG 12/21/17 09:30 12/22/17 16:14 (Pill Splitter) 1 ea UNSCH PRN OTHER 12/21/17 21:00 (Aspirin Chew) 81 mg DAILY CHEW 12/22/17 09:00 01/01/18 09:46 (Cathflo Activase Inj) 2 mg Q2H PRN INTRACATH 12/22/17 14:15 12/22/17 14:37 (Synthroid) 25 mcg DAILY@0600 PO 12/23/17 06:00 01/01/18 05:07 (Levemir Inj) 8 units Q12HR SQ 12/23/17 21:00 01/01/18 09:45 (Lasix Inj) 40 mg BID@ IV PUSH 12/24/17 09:00 01/01/18 09:45 (Reglan Inj) 5 mg Q8H PRN IV PUSH 12/24/17 17:45 12/27/17 01:50 (SoluMEDROL INJ) 40 mg Q8H IV PUSH 12/25/17 10:00 01/01/18 09:45 Pharmacy Profile Note 0 ml @ 0 mls/hr UNSCH OTHER 12/26/17 14:15 Norepinephrine Bitartrate 4 mg/ Sodium Chloride 250 ml @ 7.5 mls/hr TITRATE PRN IV 12/27/17 08:15 12/27/17 08:45 (Brethine Inj) 1 mg UNSCH PRN SQ 12/27/17 08:15 Linezolid 300 ml @ 300 mls/hr Q12H IV 12/27/17 15:00 01/01/18 03:11 (Reglan Inj) 5 mg Q8H IV PUSH 12/28/17 15:00 01/01/18 05:07 (Xanax) 0.5 mg Q8H PRN PO 12/30/17 11:00 12/30/17 12:02 Vancomycin/Sodium Chloride 200 ml @ 200 mls/hr Q12H IV 01/01/18 22:00 Miscellaneous Information SPECIFIC LAB TO BE DRAWN:VANCOMYCIN TROUGH DATE TO... ONCE ONCE .XX 01/03/18 09:45 01/03/18 09:46 (Pepcid) 20 mg BID PO 01/01/18 21:00 (Diflucan) 100 mg Q24H PO 01/01/18 11:00 01/08/18 10:59 Vital Signs / I&O Vital Signs Date Time Temp Pulse Resp B/P (MAP) Pulse Ox O2 Delivery O2 Flow Rate FiO2 01/01/18 09:13 96 40 01/01/18 09:13 40 01/01/18 06:00 122 01/01/18 04:00 103 77/73 (74) 01/01/18 04:00 40 01/01/18 04:00 98.8 103 21 77/73 (74) 97 01/01/18 04:00 104 01/01/18 03:50 95 40 01/01/18 02:00 100 01/01/18 00:47 95 40 01/01/18 00:00 40 01/01/18 00:00 105 01/01/18 00:00 99.7 105 19 90/82 (85) 94 01/01/18 00:00 105 90/82 (85) 12/31/17 22:00 112 12/31/17 20:00 40 12/31/17 20:00 162 191/118 (142) 12/31/17 20:00 162 12/31/17 20:00 99.6 162 39 191/118 (142) 94 12/31/17 19:54 95 40 12/31/17 18:00 100 12/31/17 16:00 40 12/31/17 16:00 86 130/81 (97) 127/63 (84) 12/31/17 16:00 98.6 91 16 153/74 (100) 97 12/31/17 16:00 100 12/31/17 14:00 100 12/31/17 12:00 40 3/26/18 12:00 100 12/31/17 12:00 86 130/81 (97) 127/63 (84) 12/31/17 12:00 98.6 82 16 114/72 (86) 97 12/31/17 11:02 98 40 I/O 12/31/17 12/31/17 12/31/17 01/01/18 01/01/18 01/01/18 07:00 15:00 23:00 07:00 15:00 23:00 Intake Total 1360 ml 915 ml 1093 ml Output Total 2550 ml 2650 ml 2800 ml Balance -1190 ml -1735 ml -1707 ml Intake Oral 0 ml 0 ml IV Total 1360 ml 915 ml 1015 ml Tube Feeding 0 ml 78 ml Other 0 ml Output Urine Total 2150 ml 2400 ml 2700 ml Stool Total 400 ml 250 ml 100 ml Physical Exam GENERAL: Trach in place, on the vent SKIN: Warm and dry. HEAD: Normocephalic. EYES: No scleral icterus. No injection or drainage. NECK: Supple, trachea midline. No JVD or lymphadenopathy. CARDIOVASCULAR: Regular rate and rhythm without murmurs, gallops, or rubs. RESPIRATORY: Breath sounds equal bilaterally. No accessory muscle use. Bilat diffuse rhonchi. GASTROINTESTINAL: Abdomen soft, non-tender, nondistended. MUSCULOSKELETAL: No cyanosis, no edema. Laboratory Laboratory Tests Test 01/01/18 03:00 01/01/18 04:45 Vancomycin Level Trough 28.2 MCG/ML White Blood Count 29.8 TH/MM3 Red Blood Count 4.06 MIL/MM3 Hemoglobin 12.1 GM/DL Hematocrit 35.3 % Mean Corpuscular Volume 86.8 FL Mean Corpuscular Hemoglobin 29.7 PG Mean Corpuscular Hemoglobin Concent 34.2 % Red Cell Distribution Width 13.2 % Platelet Count 706 TH/MM3 Mean Platelet Volume 8.6 FL Neutrophils (%) (Auto) 90.0 % Lymphocytes (%) (Auto) 4.3 % Monocytes (%) (Auto) 5.6 % Eosinophils (%) (Auto) 0.0 % Basophils (%) (Auto) 0.1 % Neutrophils # (Auto) 26.8 TH/MM3 Lymphocytes # (Auto) 1.3 TH/MM3 Monocytes # (Auto) 1.7 TH/MM3 Eosinophils # (Auto) 0.0 TH/MM3 Basophils # (Auto) 0.0 TH/MM3 CBC Comment AUTO DIFF Differential Total Cells Counted 100 Neutrophils % (Manual) 75 % Band Neutrophils % 13 % Lymphocytes % 5 % Monocytes % 3 % Neutrophils # (Manual) 27.4 TH/MM3 Metamyelocytes 1 % Myelocytes 3 % Nucleated Red Blood Cells 1 /100 WBC Differential Comment FINAL DIFF MANUAL Platelet Estimate HIGH Platelet Morphology Comment NORMAL Red Cell Morphology Comment NORMAL Blood Urea Nitrogen 26 MG/DL Creatinine 0.71 MG/DL Random Glucose 263 MG/DL Total Protein 7.7 GM/DL Albumin 3.2 GM/DL Calcium Level 8.7 MG/DL Alkaline Phosphatase 118 U/L Aspartate Amino Transf (AST/SGOT) 26 U/L Alanine Aminotransferase (ALT/SGPT) 42 U/L Total Bilirubin 0.8 MG/DL Sodium Level 135 MEQ/L Potassium Level 3.4 MEQ/L Chloride Level 101 MEQ/L Carbon Dioxide Level 24.2 MEQ/L Anion Gap 10 MEQ/L Estimat Glomerular Filtration Rate 89 ML/MIN Assessment and Plan Problem List: (1) Sepsis due to methicillin resistant Staphylococcus aureus (MRSA) ICD Codes: A41.02 - Sepsis due to Methicillin resistant Staphylococcus aureus (2) ARDS (adult respiratory distress syndrome) ICD Codes: J80 - Acute respiratory distress syndrome (3) Bilateral pneumonia ICD Codes: J18.9 - Pneumonia, unspecified organism Status: Acute (4) Acute hypoxemic respiratory failure ICD Codes: J96.01 - Acute respiratory failure with hypoxia (5) Paroxysmal atrial fibrillation ICD Codes: I48.0 - Paroxysmal atrial fibrillation (6) Bradycardia ICD Codes: R00.1 - Bradycardia, unspecified Assessment and Plan No new cardiac issues. S/p trach, continue vent support. BP stable, off pressors. Stays in SR, no recurrent AF. JEANINE with no evidence of endocarditis, LV fx preserved. Continue tx for pneumonia/sepsis. Continue current program with ICU care. Continue monitoring for AF, off sotalol due to bradycardia and hypotension. Remains stable from cardiac standpoint. Valorie Bray MD Jan 01, 2018 10:44
--- NOTE | 2018-01-01 13:42 | HHI.CCPN ---
Subjective Remarks/Hospital Course This is a 47-year-old female with a history of anxiety disorder, that presented to [place] on with complaints of chest pain and dyspnea that has been lasting for the past 4 days. The patient was transferred to [facility]. Imaging and laboratory studies were initially performed which showed a chest x-ray with bilateral patchy airspace consolidation consistent with bronchial pneumonia, and her lactic acid level was noted to be 3.1. The patient's oxygen requirements continue to increase the patient became tachypneic with a respiratory rate in the 40s and tachycardic, heart rate in the 120s. Pulmonology was consulted, CT was performed which revealed no pulmonary emboli , will several cavitary lesions, dense consolidation at both lung bases, air bronchograms and extensive pneumomediastinum extending into the lower neck and upper chest .ICU was requested to see patient. Upon observation the patient was severely dyspneic, with significant accessory muscle movement, violently coughing hemoptysis. Decision made to intubate patient for airway protection. 12/17 Patient is sedated with Diprivan and versed infusion. afebrile. s/p bronch yesterday by Dr. Klein. 12/18 Patient remains sedated with Versed 10mg/hr and Fentanyl 250 mics. Tmax 102.1 yesterday. + MRSA in bronch and GPC/MRSA from [facility] 12/15 from [place] 12/19: Patient developed respiratory distress and SVT this am with vent dyssynchrony with air trapping and elevated peak pressure. FiO2 increased to 100%, started on Nimbex infusion. Intermittently tachycardic, occasional bradycardia also. EKG shows sinus rhythm. Patient is very critical now. Will consult cardiology for JEANINE, and also regarding SVT. Chest x-ray shows worsening bilateral infiltrates concerning for ARDS 12/20: Remains intubated heavily sedated and neuromuscularly paralyzed to maintain ventilator synchrony and control peak pressures. Chest x-ray shows persistent bilateral infiltrates. JEANINE planned for today. All cultures so far positive for MRSA. Tachy Arrhythmia is better controlled after starting sotalol 12/21: CODE BLUE overnight when patient became bradycardic. Received epinephrine with chest compressions with return of spontaneous relief within 5 minutes according to RN. Currently on peripheral dopamine at 10 mcg/kg/min. FiO2 currently at 100%. Chest x-ray revealed worsening diffuse bilateral pulmonary infiltrates 12/22: T-max 101.1 Fahrenheit. Currently 98.9 Fahrenheit. +2493 cc past 24 hours. No bowel movement. Currently on roto-prone bed on epoprostenol at 50, 000 ng/kg/min aerosolized. On tube feeds Glucerna 1.5 at 20 cc an hour. 12/23: Overnight, when switching from supine to prone position patient 32nd episode of asystole resolved without chest compressions. We are currently patient has been prone position again with very slow with and without. Tolerating tube feeds now. Remains on cisatracurium drip at 4 mcg/min 12/24 Patient remains sedated and intubated. On Diprivan, Fentanyl, Versed in addition to Nimbex and Dopamine @5mics. Afebrile. 12/25 No events overnight. Remains sedated, intubated and on Rotoprone bed. On Dopamine 5 mics and Nimbex. T:99.7 12/26: Remains critically ill remains on prone ventilation. I will change on time/supine time to prospectively 5 hours/1 hour cycles. Increase PEEP to 10 to facilitate prolonged weaning. CXR shows persistent consolidation RUL 12/27: Remains critical but oxygenation stable. Off dopamine but hypotensive now with map of 58. Start on Levophed to keep map above 65. Change prone/ supine cycles to 4 hours each. Discontinue prone therapy in the next 24 hours if stable. WBC count is slightly improved 12/28: Transitioned from a prone bed to Roto-Rest today, tolerated well. Remains on Flolan will start weaning today per protocol. Urine output is excellent with Lasix. Remains on Levophed to maintain map above 65. Discontinue Nimbex today Subjective 12/29: hypoxia continues to improve. wbc uptrending, although remains afebrile. cultures NGTD. good diuresis. developing metabolic alkalosis most likely from contraction. 12/30: continues to diurese well. off rota-rest bed. on my evaluation today, however, awake and alert, follows commands. cannot lift hands off bed or head off bed at all. severely weak, most likely from critical illness polymyopathy ( prolonged neuromuscular blockade and steroid use). unable to successfully pass SBT. intubation and mechanical ventilation for > 2 weeks. will require tracheostomy to progress care further. 12/31: Status post trach yesterday. Tolerating SBT. Continues to have significant neuromuscular weakness. Attempt 2-4hour T piece today 01/01: Patient more critical today, WBC increased to 29.8. Diarrhea +. Tachycardic, Did not tolerate Tp today. Placed back on vent. ID has started Diflucan. Check repeat C Diff. Objective Vital Signs Date Time Temp Pulse Resp B/P (MAP) Pulse Ox O2 Delivery O2 Flow Rate FiO2 01/01/18 12:00 117 01/01/18 12:00 26 129/62 (84) 94 86/78 (81) 01/01/18 12:00 40 01/01/18 08:00 100.0 Intake and Output 01/01/18 01/01/18 01/02/18 08:00 16:00 00:00 Intake Total 993 ml Output Total 2800 ml Balance -1807 ml Result Diagram: 01/01/18 0445 01/01/18 0445 Imaging Last Impressions Chest X-Ray 12/24/17 0600 Signed Impressions: Service Date/Time: Sunday, December 24, 2017 04:53 - CONCLUSION: Persistent dense consolidation right upper lobe and a new small area of consolidation in the left lower lobe. Yomi Lopez MD CT Angiography 12/16/17 0000 Signed Impressions: Service Date/Time: Saturday, December 16, 2017 13:49 - CONCLUSION: 1. Negative for pulmonary emboli. 2. Dense consolidation in the lungs especially the lung bases with several cavitary lesions as above. Findings are most characteristic of pneumonia. Cannot exclude septic embolic disease. No significant effusion. Malachi Hardin MD Objective Remarks GENERAL: 47-year-old female lying in bed. Appears critically ill in moderate distress SKIN: Warm and dry. HEAD: Normocephalic. EYES: No scleral icterus. No injection or drainage. ENT: Oral cavity is moist NECK: Supple, trachea midline. Left IJ CVL. New trach in place without significant bleeding CARDIOVASCULAR: Currently in sinus tachycardia RESPIRATORY: Anterior lung [place] equal breath bilaterally. Bilateral coarse rhonchi and wheezes. GASTROINTESTINAL: Abdomen soft, non-tender, nondistended. MUSCULOSKELETAL: No significant peripheral edema NEURO: Appears anxious. follows commands. globally very weak, functional quadriparesis. cannot lift head off bed. cannot lift hands off bed. Muscle power generally 3 out of 5 Date of Insertion: Dec 20, 2017 Line: Central Venous Catheter Side: Left Location: Internal, Jugular A/P Problem List: (1) Acute hypoxemic respiratory failure ICD Code: J96.01 - Acute respiratory failure with hypoxia (2) Septic shock due to methicillin resistant Staphylococcus aureus ICD Code: A41.02 - Sepsis due to Methicillin resistant Staphylococcus aureus; R65.21 - Severe sepsis with septic shock (3) Sepsis due to methicillin resistant Staphylococcus aureus (MRSA) ICD Code: A41.02 - Sepsis due to Methicillin resistant Staphylococcus aureus (4) ARDS (adult respiratory distress syndrome) ICD Code: J80 - Acute respiratory distress syndrome (5) Cavitating pneumonia (6) 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 will require tracheostomy today. otherwise continue forced diuresis as Cr has not risen yet, still not at dry weight. 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 Acetaminophen 650 mg liquid by tube every 6 hours as needed fever Respiratory: Acute hypoxemic respiratory failure- persistent. Severe ARDS Small right Pneumothorax Pneumomediastinum Hemoptysis by history Pulmonary cavitary lesions ACV with daily TP, failed today, s/p prone ventilation. s/p trach 12/30/17 Ventilator bundle. Albuterol/ipratropium aerosols every 4 hours with albuterol aerosols every 2 hours as needed dyspnea Budesonide 0.5/2 1 inhalation twice daily Methylprednisolone succinate 40 mg IV every 8 hours-reduced to q12, will cut down to 20 q12 s/p flolan 12/16 -CT Angio - extensive pneumomediastinum extending into neck and upper chest. Dense consolidation at both lung bases, air bronchograms , 2 cavitary lesions 12/16-bronchoscopy performed by Dr. Klein, no active sites noted for bleeding, moderate purulent mucus bilaterally noted 2 BAL samples sent CTS has followed for Pneumomediastinum-per Dr. Guadarrama no intervention at this time. Dr. Loja pulmonology following Tolerating SBT, place on T piece 2-4 hours today increase T piece time as tolerated Cardiovascular: Septic shock- resolved. Bradycardic arrest- resolved. Paroxysmal atrial fibrillation- resolved, no in NSR SVT- resolved. Probable infective endocarditis Elevated troponin- resolved. off vasopressors. On sotalol 40 mg twice daily by Dr. Bray 12/19 Monitor HR and BP keep MAP>65mmHg Transesophageal echocardiogram 12/20 revealed no signs of endocarditis. Preserved LV function. Trace MR/TR Echo 12/17 showed EF 60-65%. Echo 12/21 EF 50%. Cannot rule out regional wall motion and ability Troponin 1.26 from 3.4 and downward trending Aspirin 81 mg p.o. daily FEN/Renal: Hypernatremia- resolved. Acute intravascular volume overload- persistent. Contraction alkalosis Monitor renal function Electrolytes replacement per protocol. Continue Lasix 40mg Q12. Diuresis to dry weight s/p diamox 500mg iv q8h x 3 doses. GI: Elevated AST and alkaline phosphatase - improving. Hypoalbuminemia Acute protein calorie malnutrition - moderate On tube feeds-Glucerna 1.5 with goal rate 55ml/hr Famotidine 20 mg twice daily GI prophylaxis Docusate sodium/senna 1 tablet twice daily for bowel regimen Having bowel movements. Check C. difficile Speech following ID: MRSA Bacteremia MRSA pneumonia Worsening sepsis leukocytosis Septic shock- resolved. ABX per ID: Continue IV Vanc, Zyvox and DCd Cefepime. Diflucan started by ID today Add p.o. Flagyl, repeat C. difficile Panculture ceftaroline Dcd 12/27/17. Cubicin DCd 12/26 by ID JEANINE revealed no signs of endocarditis 12/20 12/15 BC from [place]- MRSA 12/16 Bronch BAL- MRSA [facility] 12/16, 12/17 12/18: MRSA Blood culture 12/19 no growth 12/20 sputum/12/21 BAL MRSA influenza, pneumococcal and Legionella antigens- Negative Heme: Leukocytosis Normocytic anemia Monitor CBC. 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 Sliding scale insulin Accu-Cheks every 6 hours to maintain euglycemia/medium regimen and Levemir insulin 8 units subcu twice daily Low free T3 and T4 on levothyroxine 25 mcg daily with low T4. 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 Its more appropriate to work up when she is over the critical illness Prophylaxis: GI Prophylaxis Famotidine IV DVT Prophylaxis -- SCDs -heparin SQ Lines: Left IJ CVL placed 12/21: PICC team will not place PICC line unless 3 sets of negative cultures. Attempt to place PIV and DC central line Maribel Pal MD Jan 01, 2018 13:42
[2018-01-01] MEDS: metroNIDAZOLE 500 MG TAB PO SCH ×2 (14:10→21:03)
[2018-01-01] MEDS: FLUCONAZOLE 100 MG TAB PO SCH (14:11)
[2018-01-01] MEDS: ALPRAZolam 0.5 MG TAB PO PRN ×2 (14:11→21:03)
[2018-01-01] MEDS: ACETAMINOPHEN 650 MG/20.3 ML UDC NG PRN (18:37)
[2018-01-01] MEDS: FAMOTIDINE 20 MG TAB PO SCH (19:53)
[2018-01-01] MEDS: RESP: ALBUTEROL 2.5 MG/3 ML NEB (PRN) NEB (20:21)
[2018-01-01] MEDS: VANCOMYCIN 1,000 MG/NS 250 ML IV SCH ×2 (21:03)
[2018-01-01] MEDS ORDERED: VANCOMYCIN 1 GM/200 ML PREMIX IV SCH (22:00)
[2018-01-02] VITALS (20 sets, daily range): BP systolic 84–135; BP diastolic 57–118; PULSE 91–143; RESP 18–29; TEMP 98.8–99.5; O2SAT 94–98
[2018-01-02] MEDS: methylPREDNISolone SOD SUCC 40 MG/1 ML VIAL IV PUSH SCH ×3 (01:18→21:31)
[2018-01-02] MEDS: LINEZOLID 600 MG PREMIX 300 ML IV SCH ×2 (01:18→15:43)
[2018-01-02] MEDS: CHLORHEXIDINE GLUCONATE 2 % 1 PACK (2 CLOTHS) TOP SCH (04:00)
[2018-01-02 05:21] LABS: AUTOMATED NEUTROPHIL # 25.3 TH/MM3 (1.8-7.7); BASOPHIL # 0.1 TH/MM3 (0-0.2); BASOPHIL % 0.2 % (0.0-2.0); HEMATOCRIT 37.8 % (35.0-46.0); HEMOGLOBIN 12.6 GM/DL (11.6-15.3); LYMPH % 3.7 % (9.0-44.0); MEAN CELL VOLUME 87.9 FL (80.0-100.0); MEAN CORPUSCULAR HEMOGLOBIN 29.4 PG (27.0-34.0); MEAN CORPUSCULAR HGB CONC 33.4 % (32.0-36.0); MEAN PLATELET VOLUME 8.4 FL (7.0-11.0); MONO % 4.8 % (0.0-8.0); MONOCYTE # 1.3 TH/MM3 (0-0.9); NEUT % 91.3 % (16.0-70.0); PLATELET COUNT 722 TH/MM3 (150-450); RED CELL DISTRIBUTION WIDTH 13.8 % (11.6-17.2); WHITE BLOOD COUNT 27.7 TH/MM3 (4.0-11.0)
--- NOTE | 2018-01-02 05:34 | RADRPT ---
EXAM DATE/TIME: 01/02/2018 03:45 [place] COMPARISON: CHEST SINGLE AP, January 01, 2018, 2:48. INDICATIONS : Shortness of breath. MEDICAL HISTORY : Sepsis. Pneumonia SURGICAL HISTORY : None. ENCOUNTER: Subsequent ACUITY: 2 weeks PAIN SCORE: Non-responsive. LOCATION: Bilateral chest FINDINGS: A single view of the chest demonstrates patchy density in the upper lobes. Minimal disease in the lef t lower lobe. Tracheostomy tube and nasogastric tube are unchanged. Left jugular central line unchang ed.. Osseous structures are intact. CONCLUSION: 1. Residual patchy densities right upper lobe and left lower lobe. Miguel Lynne MD on January 02, 2018 at 5:30 Board Certified Radiologist. This report was verified electronically.
[2018-01-02 05:46] LABS: AST (GOT) 14 U/L (15-37); BICARBONATE 27.2 MEQ/L (21.0-32.0); BLOOD UREA NITROGEN 35 MG/DL (7-18); CALCIUM 9.1 MG/DL (8.5-10.1); CHLORIDE 102 MEQ/L (98-107); CREATININE 0.74 MG/DL (0.50-1.00); GLOMERULAR FILTRATION RATE 84 ML/MIN (>89); GLUCOSE,RANDOM 268 MG/DL (74-106); SODIUM (NA) 138 MEQ/L (136-145)
[2018-01-02] MEDS: HEPARIN SODIUM - SQ 10,000 UNITS/ML VIAL SQ SCH ×3 (05:47→21:31)
[2018-01-02] MEDS: METOCLOPRAMIDE HCL 10 MG/2 ML VIAL IV PUSH SCH ×3 (05:47→23:59)
[2018-01-02] MEDS: fentaNYL DRIP 250 ML IV PRN (05:47)
[2018-01-02] MEDS: metroNIDAZOLE 500 MG TAB PO SCH ×2 (05:47→15:43)
[2018-01-02] MEDS: INSULIN NovoLIN REGULAR SUPPLEMENTAL SCALE SQ SCH ×4 (05:48→23:59)
[2018-01-02] MEDS: LEVOTHYROXINE SODIUM 25 MCG TAB PO SCH (05:48)
[2018-01-02 05:49] LABS: ALKALINE PHOSPHATASE 145 U/L (45-117); ALT (GPT) 36 U/L (10-53); PHOSPHORUS 2.9 MG/DL (2.5-4.9); TOTAL BILIRUBIN ADULT 0.5 MG/DL (0.2-1.0); TOTAL PROTEIN 7.6 GM/DL (6.4-8.2)
[2018-01-02 06:09] LABS: BASOPHILS 1 % (0-2); LYMPHOCYTES 3 % (9-44); MONOCYTES 2 % (0-8); MYELOCYTES 1 % (0-0); POLYS (SEG NEUTROPHILS) 93 % (16-70)
[2018-01-02] MEDS: RESP: BUDESONIDE 0.5 MG/2 ML NEB NEB SCH ×2 (07:50→20:26)
[2018-01-02] MEDS: CHLORHEXIDINE 0.12% (ORAL KIT) 15 ML CUP MT SCH ×2 (08:20→21:32)
[2018-01-02] MEDS: SODIUM CHLORIDE 0.9% FLUSH 10 ML FLUSH IV FLUSH SCH ×3 (08:21→21:32)
[2018-01-02] MEDS: FUROSEMIDE 40 MG/4 ML VIAL IV PUSH SCH ×2 (08:21→17:11)
[2018-01-02] MEDS: ACETAMINOPHEN 650 MG/20.3 ML UDC NG PRN (08:21)
[2018-01-02] MEDS: INSULIN DETEMIR 100 UNITS/ML VIAL SQ SCH ×2 (08:21→21:33)
[2018-01-02] MEDS: ASPIRIN 81 MG CHEW TAB CHEW SCH (08:22)
[2018-01-02] MEDS: FAMOTIDINE 20 MG TAB PO SCH ×2 (08:22→21:31)
[2018-01-02] MEDS: MUPIROCIN 2% OINT 1 APPLIC/GM SYR EACH NARE SCH ×2 (08:22→21:31)
[2018-01-02] MEDS: VANCOMYCIN 1,000 MG/NS 250 ML IV SCH ×4 (08:23→21:33)
[2018-01-02] MEDS: ARTIFICIAL TEARS OPTH OINT 3.5 APPLIC/3.5 GM TUBO EACH EYE SCH ×2 (08:24→21:32)
--- NOTE | 2018-01-02 10:59 | PD.CARD.PN ---
Subjective Subjective Remarks Awake, communicating, on the vent, s/p trach placement, tele with no bradyarrhythmias or a fib, mild ST Objective Medications Current Medications Medications (Trade) Dose Ordered Sig/Marily Route Start Time Stop Time Status Last Admin (NS Flush) 2 ml UNSCH PRN IV FLUSH 12/15/17 22:30 (NS Flush) 2 ml BID IV FLUSH 12/16/17 09:00 01/02/18 08:21 (Robitussin Dm 200-20 Mg/10 ml Liq) 10 ml Q4H PRN PO 12/15/17 22:30 Future Hold (Heparin Inj) 5,000 units Q8H SQ 12/16/17 12:00 01/02/18 05:47 (Morphine Inj) 1 mg Q4H PRN IM 12/16/17 09:15 Future Hold 12/16/17 10:11 (Mucinex Er) 600 mg BID PO 12/16/17 09:15 Future Hold 12/16/17 10:51 Propofol 100 ml @ 2.1 mls/hr TITRATE PRN IV 12/16/17 14:45 12/31/17 10:05 Fentanyl Citrate 250 ml @ 5 mls/hr TITRATE PRN IV 12/16/17 16:30 01/02/18 05:47 Miscellaneous Information 1 Q361D XX 12/16/17 16:45 (Chlorhexidine 2% Cloth) Taper DAILY@04 TOP 12/17/17 04:00 12/13/18 03:59 12/27/17 03:30 (Chlorhexidine 2% Cloth) 3 pack UNSCH PRN TOP 12/16/17 16:45 (Milk Of Magnesia Liq) 30 ml Q12H PRN PO 12/16/17 16:45 (Senokot) 17.2 mg Q12H PRN PO 12/16/17 16:45 12/28/17 08:39 (Dulcolax Supp) 10 mg DAILY PRN RECTAL 12/16/17 16:45 (Lactulose Liq) 30 ml DAILY PRN PO 12/16/17 16:45 (Peridex 0.12% Liq) 15 ml BID@08,20 MT 12/16/17 20:00 01/02/18 08:20 Midazolam HCl 100 ml @ 2 mls/hr TITRATE PRN IV 12/16/17 17:30 12/29/17 05:15 Potassium Chloride 100 ml @ 50 mls/hr Q2H PRN IV 12/17/17 07:45 12/31/17 09:33 Potassium Chloride 100 ml @ 50 mls/hr Q2H PRN IV 12/17/17 07:45 (K-Lyte Cl Eff) 50 meq UNSCH PRN PO 12/17/17 07:45 Potassium Chloride 100 ml @ 25 mls/hr UNSCH PRN IV 12/17/17 07:45 01/01/18 07:03 Potassium Chloride 100 ml @ 50 mls/hr Q2H PRN IV 12/17/17 07:45 Magnesium Sulfate 4 gm/Sodium Chloride 100 ml @ 50 mls/hr UNSCH PRN IV 12/17/17 07:45 (Mag-Ox) 800 mg UNSCH PRN PO 12/17/17 07:45 Magnesium Sulfate 2 gm/Sodium Chloride 100 ml @ 50 mls/hr UNSCH PRN IV 12/17/17 07:45 (K-Phos) 2,000 mg Q4H PRN PO 12/17/17 07:45 12/17/17 23:49 Sodium Phosphate 30 mmol/Sodium Chloride 250 ml @ 42 mls/hr UNSCH PRN IV 12/17/17 07:45 12/18/17 08:40 (K-Phos) 2,000 mg UNSCH PRN PO/TUBE 12/17/17 07:45 Potassium Phosphate 30 mmol/ Sodium Chloride 260 ml @ 42 mls/hr UNSCH PRN IV 12/17/17 07:45 12/19/17 07:57 (Albuterol Neb) 2.5 mg Q2HR NEB PRN NEB 12/21/17 08:30 01/01/18 20:21 (Pulmicort Respule Neb) 0.5 mg Q12HR NEB NEB 12/21/17 20:00 01/02/18 07:50 (NS Flush) DAILY IV FLUSH 12/22/17 09:00 01/02/18 08:21 (NS Flush) UNSCH PRN IV FLUSH 12/21/17 09:15 12/28/17 21:22 (Bactroban Nasal 2% Oint) Taper BID EACH NARE 12/21/17 21:00 3/12/19 20:59 01/02/18 08:22 (Lacrilube Opht Oint) 1 applic Q12HR EACH EYE 12/21/17 10:00 01/02/18 08:24 (D50w (Vial) Inj) 50 ml UNSCH PRN IV PUSH 12/21/17 09:15 (Glucagon Inj) 1 mg UNSCH PRN OTHER 12/21/17 09:15 (NovoLIN R SUPPLEMENTAL SCALE) 1 Q6HR SQ 12/21/17 12:00 01/02/18 05:48 (Tylenol 650 Mg/ 20 ml Liq) 650 mg Q6H PRN NG 12/21/17 09:30 01/02/18 08:21 (Pill Splitter) 1 ea UNSCH PRN OTHER 12/21/17 21:00 (Aspirin Chew) 81 mg DAILY CHEW 12/22/17 09:00 01/02/18 08:22 (Cathflo Activase Inj) 2 mg Q2H PRN INTRACATH 12/22/17 14:15 12/22/17 14:37 (Synthroid) 25 mcg DAILY@0600 PO 12/23/17 06:00 01/02/18 05:48 (Levemir Inj) 8 units Q12HR SQ 12/23/17 21:00 01/02/18 08:21 (Lasix Inj) 40 mg BID@,18 IV PUSH 12/24/17 09:00 01/02/18 08:21 (Reglan Inj) 5 mg Q8H PRN IV PUSH 12/24/17 17:45 12/27/17 01:50 (SoluMEDROL INJ) 40 mg Q8H IV PUSH 12/25/17 10:00 01/02/18 08:22 Pharmacy Profile Note 0 ml @ 0 mls/hr UNSCH OTHER 12/26/17 14:15 Norepinephrine Bitartrate 4 mg/ Sodium Chloride 250 ml @ 7.5 mls/hr TITRATE PRN IV 12/27/17 08:15 12/27/17 08:45 (Brethine Inj) 1 mg UNSCH PRN SQ 12/27/17 08:15 Linezolid 300 ml @ 300 mls/hr Q12H IV 12/27/17 15:00 01/02/18 01:18 (Reglan Inj) 5 mg Q8H IV PUSH 12/28/17 15:00 01/02/18 05:47 (Xanax) 0.5 mg Q8H PRN PO 12/30/17 11:00 01/01/18 21:03 Miscellaneous Information SPECIFIC LAB TO BE DRAWN:VANCOMYCIN TROUGH DATE TO... ONCE ONCE .XX 01/03/18 09:45 01/03/18 09:46 (Pepcid) 20 mg BID PO 01/01/18 21:00 01/02/18 08:22 (Diflucan) 100 mg Q24H PO 01/01/18 11:00 01/08/18 10:59 01/01/18 14:11 (Flagyl) 500 mg Q8HR PO 01/01/18 14:00 01/02/18 05:47 Vancomycin HCl 1000 mg/Sodium Chloride 250 ml @ 250 mls/hr Q12H IV 01/01/18 22:00 01/02/18 08:23 Vital Signs / I&O Vital Signs Date Time Temp Pulse Resp B/P (MAP) Pulse Ox O2 Delivery O2 Flow Rate FiO2 01/02/18 10:00 119 01/02/18 08:00 104 129/60 (83) 118/118 (118) 01/02/18 08:00 99.5 104 22 129/60 (83) 98 118/118 (118) 01/02/18 08:00 104 01/02/18 08:00 40 01/02/18 07:52 97 40 01/02/18 06:00 129 01/02/18 04:57 96 40 01/02/18 04:00 143 01/02/18 04:00 99.3 143 26 135/62 (86) 96 99/97 (98) 01/02/18 04:00 127 135/62 (86) 99/97 (98) 01/02/18 04:00 40 01/02/18 02:00 118 01/02/18 01:18 96 40 01/02/18 00:00 127 123/57 (79) 84/81 (82) 01/02/18 00:00 127 01/02/18 00:00 40 01/02/18 00:00 98.9 127 23 123/57 (79) 95 84/81 (82) 01/01/18 22:00 111 01/01/18 20:22 96 40 01/01/18 20:00 124 01/01/18 20:00 99.1 124 24 129/61 (83) 95 119/119 (119) 01/01/18 20:00 40 01/01/18 20:00 124 129/61 (83) 119/119 (119) 01/01/18 18:00 124 01/01/18 16:28 96 40 01/01/18 16:00 99.3 102 22 109/55 (73) 96 77/73 (74) 01/01/18 16:00 102 109/55 (73) 77/73 (74) 01/01/18 16:00 95 01/01/18 16:00 40 01/01/18 14:00 146 01/01/18 12:00 117 01/01/18 12:00 99.7 117 26 129/62 (84) 94 86/78 (81) 01/01/18 12:00 117 129/62 (84) 86/78 (81) 01/01/18 12:00 40 01/01/18 11:11 93 40 I/O 01/01/18 01/01/18 01/01/18 01/02/18 01/02/18 01/02/18 07:00 15:00 23:00 07:00 15:00 23:00 Intake Total 1093 ml 100 ml 974 ml 1205 ml 250 ml Output Total 2800 ml 1800 ml 1100 ml Balance -1707 ml 100 ml -826 ml 105 ml 250 ml Intake Oral 0 ml IV Total 1015 ml 100 ml 550 ml 550 ml 250 ml Tube Feeding 78 ml 334 ml 655 ml Tube Irrigant 90 ml Output Urine Total 2700 ml 1500 ml 700 ml Stool Total 100 ml 300 ml 400 ml Physical Exam GENERAL: Trach in place, on the vent, awake SKIN: Warm and dry. HEAD: Normocephalic. EYES: No scleral icterus. No injection or drainage. NECK: Supple, trachea midline. No JVD or lymphadenopathy. CARDIOVASCULAR: Regular rate and rhythm without murmurs, gallops, or rubs. RESPIRATORY: Breath sounds equal bilaterally. No accessory muscle use. Bilat diffuse rhonchi. GASTROINTESTINAL: Abdomen soft, non-tender, nondistended. MUSCULOSKELETAL: No cyanosis, no edema. Laboratory Laboratory Tests Test 01/01/18 14:30 01/02/18 04:45 Stool C. difficile Toxin (PCR) NEGATIVE Stl C. difficile Toxin Epiderm 027 PRESUMPTIVE NEGATIVE White Blood Count 27.7 TH/MM3 Red Blood Count 4.30 MIL/MM3 Hemoglobin 12.6 GM/DL Hematocrit 37.8 % Mean Corpuscular Volume 87.9 FL Mean Corpuscular Hemoglobin 29.4 PG Mean Corpuscular Hemoglobin Concent 33.4 % Red Cell Distribution Width 13.8 % Platelet Count 722 TH/MM3 Mean Platelet Volume 8.4 FL Neutrophils (%) (Auto) 91.3 % Lymphocytes (%) (Auto) 3.7 % Monocytes (%) (Auto) 4.8 % Eosinophils (%) (Auto) 0.0 % Basophils (%) (Auto) 0.2 % Neutrophils # (Auto) 25.3 TH/MM3 Lymphocytes # (Auto) 1.0 TH/MM3 Monocytes # (Auto) 1.3 TH/MM3 Eosinophils # (Auto) 0.0 TH/MM3 Basophils # (Auto) 0.1 TH/MM3 CBC Comment AUTO DIFF Differential Total Cells Counted 100 Neutrophils % (Manual) 93 % Lymphocytes % 3 % Monocytes % 2 % Basophils % 1 % Neutrophils # (Manual) 26.0 TH/MM3 Myelocytes 1 % Differential Comment FINAL DIFF MANUAL Platelet Estimate HIGH Platelet Morphology Comment NORMAL Red Cell Morphology Comment NORMAL Blood Urea Nitrogen 35 MG/DL Creatinine 0.74 MG/DL Random Glucose 268 MG/DL Total Protein 7.6 GM/DL Albumin 3.0 GM/DL Calcium Level 9.1 MG/DL Phosphorus Level 2.9 MG/DL Magnesium Level 2.0 MG/DL Alkaline Phosphatase 145 U/L Aspartate Amino Transf (AST/SGOT) 14 U/L Alanine Aminotransferase (ALT/SGPT) 36 U/L Total Bilirubin 0.5 MG/DL Sodium Level 138 MEQ/L Potassium Level 4.1 MEQ/L Chloride Level 102 MEQ/L Carbon Dioxide Level 27.2 MEQ/L Anion Gap 9 MEQ/L Estimat Glomerular Filtration Rate 84 ML/MIN Imaging Last 24 hours Impressions Chest X-Ray 01/02/18 0600 Signed Impressions: Service Date/Time: Tuesday, January 02, 2018 03:45 - CONCLUSION: 1. Residual patchy densities right upper lobe and left lower lobe. Miguel Lynne MD Assessment and Plan Problem List: (1) Sepsis due to methicillin resistant Staphylococcus aureus (MRSA) ICD Codes: A41.02 - Sepsis due to Methicillin resistant Staphylococcus aureus (2) ARDS (adult respiratory distress syndrome) ICD Codes: J80 - Acute respiratory distress syndrome (3) Bilateral pneumonia ICD Codes: J18.9 - Pneumonia, unspecified organism Status: Acute (4) Acute hypoxemic respiratory failure ICD Codes: J96.01 - Acute respiratory failure with hypoxia (5) Paroxysmal atrial fibrillation ICD Codes: I48.0 - Paroxysmal atrial fibrillation (6) Bradycardia ICD Codes: R00.1 - Bradycardia, unspecified Assessment and Plan Stable from cardiac standpoint. S/p trach, continue vent support, wean as tolerated, so far slow progress. BP stable, off pressors. Stays in SR, no recurrent AF off sotalol. JEANINE with no evidence of endocarditis, LV fx preserved. Continue current program with ICU care. Continue monitoring for AF, off sotalol due to bradycardia and hypotension. Increase activity, PT. Valorie Bray MD Jan 02, 2018 10:59
[2018-01-02] MEDS: FLUCONAZOLE 100 MG TAB PO SCH (11:19)
--- NOTE | 2018-01-02 13:01 | HHI.IDPN ---
Subjective Subjective Remarks Patient is a 47-year-old female, who initially presented to [facility] ED complaining of 4 day history of chest pain and shortness of breath. In have any other history. She was apparently coughing and was bringing up some brownish phlegm. There was no mention of any fever or chills. No nausea or vomiting. No urinary complaints. Chest x-ray showed bilateral patchy basilar infiltrates. CTA did not show any pulmonary embolism, showed bilateral infiltrates with some cavitary lesions noted. She was transferred to the main hospital, and she apparently had some blood in the sputum. She ended up getting intubated. [facility] did bronchoscopy on her. Patient currently sedated postintubation. Her blood pressure is okay and she is not hypotensive. She is tachycardic. Infectious disease consultation has been requested to evaluate the patient with pneumonia Notes reviewed Temps 99+ BP ok Doing CPAP trials Awake, not SOB, no abdominal pain S/P trach 12/30 WBC slightly lower Last CXR better Having diarrhea, C diff negative Antibiotics vanco IV zyvox Diflucan Flagyl Current Medications Medications (Trade) Dose Ordered Sig/Marily Route Start Time Stop Time Status Last Admin (NS Flush) 2 ml UNSCH PRN IV FLUSH 12/15/17 22:30 (NS Flush) 2 ml BID IV FLUSH 12/16/17 09:00 01/02/18 08:21 (Robitussin Dm 200-20 Mg/10 ml Liq) 10 ml Q4H PRN PO 12/15/17 22:30 Future Hold (Heparin Inj) 5,000 units Q8H SQ 12/16/17 12:00 01/02/18 11:19 (Morphine Inj) 1 mg Q4H PRN IM 12/16/17 09:15 Future Hold 12/16/17 10:11 (Mucinex Er) 600 mg BID PO 12/16/17 09:15 Future Hold 12/16/17 10:51 Propofol 100 ml @ 2.1 mls/hr TITRATE PRN IV 12/16/17 14:45 12/31/17 10:05 Fentanyl Citrate 250 ml @ 5 mls/hr TITRATE PRN IV 12/16/17 16:30 01/02/18 05:47 Miscellaneous Information 1 Q361D XX 12/16/17 16:45 (Chlorhexidine 2% Cloth) Taper DAILY@04 TOP 12/17/17 04:00 12/13/18 03:59 12/27/17 03:30 (Chlorhexidine 2% Cloth) 3 pack UNSCH PRN TOP 12/16/17 16:45 (Milk Of Magnesia Liq) 30 ml Q12H PRN PO 12/16/17 16:45 (Senokot) 17.2 mg Q12H PRN PO 12/16/17 16:45 12/28/17 08:39 (Dulcolax Supp) 10 mg DAILY PRN RECTAL 12/16/17 16:45 (Lactulose Liq) 30 ml DAILY PRN PO 12/16/17 16:45 (Peridex 0.12% Liq) 15 ml BID@08,20 MT 12/16/17 20:00 01/02/18 08:20 Midazolam HCl 100 ml @ 2 mls/hr TITRATE PRN IV 12/16/17 17:30 12/29/17 05:15 Potassium Chloride 100 ml @ 50 mls/hr Q2H PRN IV 12/17/17 07:45 12/31/17 09:33 Potassium Chloride 100 ml @ 50 mls/hr Q2H PRN IV 12/17/17 07:45 (K-Lyte Cl Eff) 50 meq UNSCH PRN PO 12/17/17 07:45 Potassium Chloride 100 ml @ 25 mls/hr UNSCH PRN IV 12/17/17 07:45 01/01/18 07:03 Potassium Chloride 100 ml @ 50 mls/hr Q2H PRN IV 12/17/17 07:45 Magnesium Sulfate 4 gm/Sodium Chloride 100 ml @ 50 mls/hr UNSCH PRN IV 12/17/17 07:45 (Mag-Ox) 800 mg UNSCH PRN PO 12/17/17 07:45 Magnesium Sulfate 2 gm/Sodium Chloride 100 ml @ 50 mls/hr UNSCH PRN IV 12/17/17 07:45 (K-Phos) 2,000 mg Q4H PRN PO 12/17/17 07:45 12/17/17 23:49 Sodium Phosphate 30 mmol/Sodium Chloride 250 ml @ 42 mls/hr UNSCH PRN IV 12/17/17 07:45 12/18/17 08:40 (K-Phos) 2,000 mg UNSCH PRN PO/TUBE 12/17/17 07:45 Potassium Phosphate 30 mmol/ Sodium Chloride 260 ml @ 42 mls/hr UNSCH PRN IV 12/17/17 07:45 12/19/17 07:57 (Albuterol Neb) 2.5 mg Q2HR NEB PRN NEB 12/21/17 08:30 01/01/18 20:21 (Pulmicort Respule Neb) 0.5 mg Q12HR NEB NEB 12/21/17 20:00 01/02/18 07:50 (NS Flush) DAILY IV FLUSH 12/22/17 09:00 01/02/18 08:21 (NS Flush) UNSCH PRN IV FLUSH 12/21/17 09:15 12/28/17 21:22 (Bactroban Nasal 2% Oint) Taper BID EACH NARE 12/21/17 21:00 12/17/18 20:59 01/02/18 08:22 (Lacrilube Opht Oint) 1 applic Q12HR EACH EYE 12/21/17 10:00 01/02/18 08:24 (D50w (Vial) Inj) 50 ml UNSCH PRN IV PUSH 12/21/17 09:15 (Glucagon Inj) 1 mg UNSCH PRN OTHER 12/21/17 09:15 (NovoLIN R SUPPLEMENTAL SCALE) 1 Q6HR SQ 12/21/17 12:00 01/02/18 11:18 (Tylenol 650 Mg/ 20 ml Liq) 650 mg Q6H PRN NG 12/21/17 09:30 01/02/18 08:21 (Pill Splitter) 1 ea UNSCH PRN OTHER 12/21/17 21:00 (Aspirin Chew) 81 mg DAILY CHEW 12/22/17 09:00 01/02/18 08:22 (Cathflo Activase Inj) 2 mg Q2H PRN INTRACATH 12/22/17 14:15 12/22/17 14:37 (Synthroid) 25 mcg DAILY@0600 PO 12/23/17 06:00 01/02/18 05:48 (Levemir Inj) 8 units Q12HR SQ 12/23/17 21:00 01/02/18 08:21 (Lasix Inj) 40 mg BID@ IV PUSH 3/19/18 09:00 01/02/18 08:21 (Reglan Inj) 5 mg Q8H PRN IV PUSH 12/24/17 17:45 12/27/17 01:50 (SoluMEDROL INJ) 40 mg Q8H IV PUSH 12/25/17 10:00 01/02/18 08:22 Pharmacy Profile Note 0 ml @ 0 mls/hr UNSCH OTHER 12/26/17 14:15 Norepinephrine Bitartrate 4 mg/ Sodium Chloride 250 ml @ 7.5 mls/hr TITRATE PRN IV 12/27/17 08:15 12/27/17 08:45 (Brethine Inj) 1 mg UNSCH PRN SQ 12/27/17 08:15 Linezolid 300 ml @ 300 mls/hr Q12H IV 12/27/17 15:00 01/02/18 01:18 (Reglan Inj) 5 mg Q8H IV PUSH 12/28/17 15:00 01/02/18 05:47 (Xanax) 0.5 mg Q8H PRN PO 12/30/17 11:00 01/01/18 21:03 Miscellaneous Information SPECIFIC LAB TO BE DRAWN:VANCOMYCIN TROUGH DATE TO... ONCE ONCE .XX 01/03/18 09:45 01/03/18 09:46 (Pepcid) 20 mg BID PO 01/01/18 21:00 01/02/18 08:22 (Diflucan) 100 mg Q24H PO 01/01/18 11:00 01/08/18 10:59 01/02/18 11:19 (Flagyl) 500 mg Q8HR PO 01/01/18 14:00 01/02/18 05:47 Vancomycin HCl 1000 mg/Sodium Chloride 250 ml @ 250 mls/hr Q12H IV 01/01/18 22:00 01/02/18 08:23 Current Medications Medications (Trade) Dose Ordered Sig/Marily Route Start Time Stop Time Status Last Admin (NS Flush) 2 ml UNSCH PRN IV FLUSH 12/15/17 22:30 (NS Flush) 2 ml BID IV FLUSH 12/16/17 09:00 12/31/17 23:18 (Robitussin Dm 200-20 Mg/10 ml Liq) 10 ml Q4H PRN PO 12/15/17 22:30 Future Hold (Heparin Inj) 5,000 units Q8H SQ 12/16/17 12:00 01/01/18 05:08 (Morphine Inj) 1 mg Q4H PRN IM 12/16/17 09:15 Future Hold 12/16/17 10:11 (Mucinex Er) 600 mg BID PO 12/16/17 09:15 Future Hold 12/16/17 10:51 Propofol 100 ml @ 2.1 mls/hr TITRATE PRN IV 12/16/17 14:45 12/31/17 10:05 Fentanyl Citrate 250 ml @ 5 mls/hr TITRATE PRN IV 12/16/17 16:30 12/31/17 06:16 Miscellaneous Information 1 Q361D XX 12/16/17 16:45 (Chlorhexidine 2% Cloth) Taper DAILY@04 TOP 12/17/17 04:00 12/13/18 03:59 12/27/17 03:30 (Chlorhexidine 2% Cloth) 3 pack UNSCH PRN TOP 12/16/17 16:45 (Milk Of Magnesia Liq) 30 ml Q12H PRN PO 12/16/17 16:45 (Senokot) 17.2 mg Q12H PRN PO 12/16/17 16:45 12/28/17 08:39 (Dulcolax Supp) 10 mg DAILY PRN RECTAL 12/16/17 16:45 (Lactulose Liq) 30 ml DAILY PRN PO 12/16/17 16:45 (Peridex 0.12% Liq) 15 ml BID@08,20 MT 12/16/17 20:00 12/31/17 23:17 Midazolam HCl 100 ml @ 2 mls/hr TITRATE PRN IV 12/16/17 17:30 12/29/17 05:15 Potassium Chloride 100 ml @ 50 mls/hr Q2H PRN IV 12/17/17 07:45 12/31/17 09:33 Potassium Chloride 100 ml @ 50 mls/hr Q2H PRN IV 12/17/17 07:45 (K-Lyte Cl Eff) 50 meq UNSCH PRN PO 12/17/17 07:45 Potassium Chloride 100 ml @ 25 mls/hr UNSCH PRN IV 12/17/17 07:45 01/01/18 07:03 Potassium Chloride 100 ml @ 50 mls/hr Q2H PRN IV 12/17/17 07:45 Magnesium Sulfate 4 gm/Sodium Chloride 100 ml @ 50 mls/hr UNSCH PRN IV 12/17/17 07:45 (Mag-Ox) 800 mg UNSCH PRN PO 12/17/17 07:45 Magnesium Sulfate 2 gm/Sodium Chloride 100 ml @ 50 mls/hr UNSCH PRN IV 12/17/17 07:45 (K-Phos) 2,000 mg Q4H PRN PO 12/17/17 07:45 12/17/17 23:49 Sodium Phosphate 30 mmol/Sodium Chloride 250 ml @ 42 mls/hr UNSCH PRN IV 12/17/17 07:45 12/18/17 08:40 (K-Phos) 2,000 mg UNSCH PRN PO/TUBE 12/17/17 07:45 Potassium Phosphate 30 mmol/ Sodium Chloride 260 ml @ 42 mls/hr UNSCH PRN IV 12/17/17 07:45 12/19/17 07:57 (Albuterol Neb) 2.5 mg Q2HR NEB PRN NEB 12/21/17 08:30 12/31/17 14:54 (Pulmicort Respule Neb) 0.5 mg Q12HR NEB NEB 12/21/17 20:00 01/01/18 09:12 (NS Flush) DAILY IV FLUSH 12/22/17 09:00 12/31/17 09:00 (NS Flush) UNSCH PRN IV FLUSH 12/21/17 09:15 12/28/17 21:22 (Bactroban Nasal 2% Oint) Taper BID EACH NARE 12/21/17 21:00 12/17/18 20:59 12/31/17 08:31 (Lacrilube Opht Oint) 1 applic Q12HR EACH EYE 12/21/17 10:00 12/31/17 23:18 (D50w (Vial) Inj) 50 ml UNSCH PRN IV PUSH 12/21/17 09:15 (Glucagon Inj) 1 mg UNSCH PRN OTHER 12/21/17 09:15 (NovoLIN R SUPPLEMENTAL SCALE) 1 Q6HR SQ 12/21/17 12:00 01/01/18 05:07 (Tylenol 650 Mg/ 20 ml Liq) 650 mg Q6H PRN NG 12/21/17 09:30 12/22/17 16:14 (Pill Splitter) 1 ea UNSCH PRN OTHER 12/21/17 21:00 (Aspirin Chew) 81 mg DAILY CHEW 12/22/17 09:00 12/30/17 07:54 (Cathflo Activase Inj) 2 mg Q2H PRN INTRACATH 12/22/17 14:15 12/22/17 14:37 (Synthroid) 25 mcg DAILY@0600 PO 12/23/17 06:00 01/01/18 05:07 (Levemir Inj) 8 units Q12HR SQ 12/23/17 21:00 12/31/17 08:27 (Lasix Inj) 40 mg BID@ IV PUSH 12/24/17 09:00 12/31/17 19:27 (Reglan Inj) 5 mg Q8H PRN IV PUSH 12/24/17 17:45 12/27/17 01:50 (SoluMEDROL INJ) 40 mg Q8H IV PUSH 12/25/17 10:00 01/01/18 01:00 Pharmacy Profile Note 0 ml @ 0 mls/hr UNSCH OTHER 12/26/17 14:15 Norepinephrine Bitartrate 4 mg/ Sodium Chloride 250 ml @ 7.5 mls/hr TITRATE PRN IV 12/27/17 08:15 12/27/17 08:45 (Brethine Inj) 1 mg UNSCH PRN SQ 12/27/17 08:15 Linezolid 300 ml @ 300 mls/hr Q12H IV 12/27/17 15:00 01/01/18 03:11 Cefepime HCl 2000 mg/Sodium Chloride 100 ml @ 200 mls/hr Q8H IV 12/27/17 14:00 01/01/18 05:09 (Reglan Inj) 5 mg Q8H IV PUSH 12/28/17 15:00 01/01/18 05:07 (Xanax) 0.5 mg Q8H PRN PO 12/30/17 11:00 12/30/17 12:02 Vancomycin/Sodium Chloride 200 ml @ 200 mls/hr Q12H IV 01/01/18 22:00 Miscellaneous Information SPECIFIC LAB TO BE DRAWN:VANCOMYCIN TROUGH DATE TO... ONCE ONCE .XX 01/03/18 09:45 01/03/18 09:46 (Pepcid) 20 mg BID PO 01/01/18 21:00 Lines LIJ TLC - 12/21 Past Medical History Anxiety Past Surgical History Cholecystectomy Hysterectomy Allergies: Coded Allergies: No Known Allergies (Unverified , 12/15/17) Objective . Vital Signs Date Time Temp Pulse Resp B/P (MAP) Pulse Ox O2 Delivery O2 Flow Rate FiO2 01/02/18 12:00 99.5 118 29 129/59 (82) 94 01/02/18 12:00 118 129/59 (82) 01/02/18 12:00 118 01/02/18 12:00 40 01/02/18 11:22 94 40 01/02/18 11:22 40 01/02/18 10:00 119 01/02/18 08:00 104 129/60 (83) 118/118 (118) 01/02/18 08:00 99.5 104 22 129/60 (83) 98 118/118 (118) 01/02/18 08:00 104 01/02/18 08:00 40 01/02/18 07:52 97 40 01/02/18 06:00 129 01/02/18 04:57 96 40 01/02/18 04:00 143 01/02/18 04:00 99.3 143 26 135/62 (86) 96 99/97 (98) 01/02/18 04:00 127 135/62 (86) 99/97 (98) 01/02/18 04:00 40 01/02/18 02:00 118 01/02/18 01:18 96 40 01/02/18 00:00 127 123/57 (79) 84/81 (82) 01/02/18 00:00 127 01/02/18 00:00 40 01/02/18 00:00 98.9 127 23 123/57 (79) 95 84/81 (82) 01/01/18 22:00 111 01/01/18 20:22 96 40 01/01/18 20:00 124 01/01/18 20:00 99.1 124 24 129/61 (83) 95 119/119 (119) 01/01/18 20:00 40 01/01/18 20:00 124 129/61 (83) 119/119 (119) 01/01/18 18:00 124 01/01/18 16:28 96 40 01/01/18 16:00 99.3 102 22 109/55 (73) 96 77/73 (74) 01/01/18 16:00 102 109/55 (73) 77/73 (74) 01/01/18 16:00 95 01/01/18 16:00 40 01/01/18 14:00 146 01/02/18 01/02/18 01/03/18 14:59 22:59 06:59 Intake Total 250 ml Balance 250 ml IV Total 250 ml . Laboratory Tests Test 01/01/18 04:45 01/02/18 04:45 White Blood Count 29.8 TH/MM3 27.7 TH/MM3 Red Blood Count 4.06 MIL/MM3 4.30 MIL/MM3 Hemoglobin 12.1 GM/DL 12.6 GM/DL Hematocrit 35.3 % 37.8 % Mean Corpuscular Volume 86.8 FL 87.9 FL Mean Corpuscular Hemoglobin 29.7 PG 29.4 PG Mean Corpuscular Hemoglobin Concent 34.2 % 33.4 % Red Cell Distribution Width 13.2 % 13.8 % Platelet Count 706 TH/MM3 722 TH/MM3 Mean Platelet Volume 8.6 FL 8.4 FL Neutrophils (%) (Auto) 90.0 % 91.3 % Lymphocytes (%) (Auto) 4.3 % 3.7 % Monocytes (%) (Auto) 5.6 % 4.8 % Eosinophils (%) (Auto) 0.0 % 0.0 % Basophils (%) (Auto) 0.1 % 0.2 % Neutrophils # (Auto) 26.8 TH/MM3 25.3 TH/MM3 Lymphocytes # (Auto) 1.3 TH/MM3 1.0 TH/MM3 Monocytes # (Auto) 1.7 TH/MM3 1.3 TH/MM3 Eosinophils # (Auto) 0.0 TH/MM3 0.0 TH/MM3 Basophils # (Auto) 0.0 TH/MM3 0.1 TH/MM3 CBC Comment AUTO DIFF AUTO DIFF Differential Total Cells Counted 100 100 Neutrophils % (Manual) 75 % 93 % Band Neutrophils % 13 % Lymphocytes % 5 % 3 % Monocytes % 3 % 2 % Neutrophils # (Manual) 27.4 TH/MM3 26.0 TH/MM3 Metamyelocytes 1 % Myelocytes 3 % 1 % Nucleated Red Blood Cells 1 /100 WBC Differential Comment FINAL DIFF MANUAL FINAL DIFF MANUAL Platelet Estimate HIGH HIGH Platelet Morphology Comment NORMAL NORMAL Red Cell Morphology Comment NORMAL NORMAL Basophils % 1 % Laboratory Tests Test 01/01/18 04:45 01/02/18 04:45 Blood Urea Nitrogen 26 MG/DL 35 MG/DL Creatinine 0.71 MG/DL 0.74 MG/DL Random Glucose 263 MG/DL 268 MG/DL Total Protein 7.7 GM/DL 7.6 GM/DL Albumin 3.2 GM/DL 3.0 GM/DL Calcium Level 8.7 MG/DL 9.1 MG/DL Alkaline Phosphatase 118 U/L 145 U/L Aspartate Amino Transf (AST/SGOT) 26 U/L 14 U/L Alanine Aminotransferase (ALT/SGPT) 42 U/L 36 U/L Total Bilirubin 0.8 MG/DL 0.5 MG/DL Sodium Level 135 MEQ/L 138 MEQ/L Potassium Level 3.4 MEQ/L 4.1 MEQ/L Chloride Level 101 MEQ/L 102 MEQ/L Carbon Dioxide Level 24.2 MEQ/L 27.2 MEQ/L Anion Gap 10 MEQ/L 9 MEQ/L Estimat Glomerular Filtration Rate 89 ML/MIN 84 ML/MIN Phosphorus Level 2.9 MG/DL Magnesium Level 2.0 MG/DL Microbiology Date/Time Source Procedure Growth Status 01/01/18 15:53 Blood Peripheral Aerobic Blood Culture - Preliminary NO GROWTH IN 1 DAY Resulted 01/01/18 15:53 Blood Peripheral Anaerobic Blood Culture - Preliminary NO GROWTH IN 1 DAY Resulted 01/01/18 15:48 Blood Peripheral Aerobic Blood Culture - Preliminary NO GROWTH IN 1 DAY Resulted 01/01/18 15:48 Blood Peripheral Anaerobic Blood Culture - Preliminary NO GROWTH IN 1 DAY Resulted 01/01/18 16:30 Sputum Endotracheal Gram Stain - Final Resulted 01/01/18 16:30 Sputum Endotracheal Sputum Culture Pending Resulted 01/01/18 14:30 Urine Catheterized Urine Urine Culture - Preliminary NO GROWTH IN 24 HOURS. Resulted Imaging [place] Last Impressions Chest X-Ray 12/28/17 0600 Signed Impressions: Service Date/Time: Thursday, December 28, 2017 09:28 - CONCLUSION: Unchanged right upper lobe infiltrate. Yomi Shipley Jr., MD CT Angiography 12/16/17 0000 Signed Impressions: Service Date/Time: Doug, December 16, 2017 13:49 - CONCLUSION: 1. Negative for pulmonary emboli. 2. Dense consolidation in the lungs especially the lung bases with several cavitary lesions as above. Findings are most characteristic of pneumonia. Cannot exclude septic embolic disease. No significant effusion. Malachi Hardin MD Physical Exam GENERAL: Awake and following commands, NAD SKIN: Warm and dry. 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 worsening infiltrates, PNA - S/P trach - CXR improving Leukocytosis, persistent Diarrhea, C diff negative x 2 RECOMMENDATION Continue zyvox Continue IV Vanco Continue Diflucan Also on Flagyl - started by CCM Follow C/S Monitor progress Weaning per CCM Follow CBC Liliam Su MD Jan 02, 2018 13:01
--- NOTE | 2018-01-02 15:49 | HHI.PR ---
Subjective Remarks on the ventilator alert no distress FIO2 40% Objective Vital Signs Date Time Temp Pulse Resp B/P (MAP) Pulse Ox O2 Delivery O2 Flow Rate FiO2 01/02/18 15:30 40 01/02/18 14:29 94 40 01/02/18 14:00 121 01/02/18 12:00 99.5 118 29 129/59 (82) 94 01/02/18 12:00 118 129/59 (82) 01/02/18 12:00 118 01/02/18 12:00 40 01/02/18 11:22 94 40 01/02/18 11:22 40 01/02/18 10:00 119 01/02/18 08:00 104 129/60 (83) 118/118 (118) 01/02/18 08:00 99.5 104 22 129/60 (83) 98 118/118 (118) 01/02/18 08:00 104 01/02/18 08:00 40 01/02/18 07:52 97 40 01/02/18 06:00 129 01/02/18 04:57 96 40 01/02/18 04:00 143 01/02/18 04:00 99.3 143 26 135/62 (86) 96 99/97 (98) 01/02/18 04:00 127 135/62 (86) 99/97 (98) 01/02/18 04:00 40 01/02/18 02:00 118 01/02/18 01:18 96 40 01/02/18 00:00 127 123/57 (79) 84/81 (82) 01/02/18 00:00 127 01/02/18 00:00 40 01/02/18 00:00 98.9 127 23 123/57 (79) 95 84/81 (82) 01/01/18 22:00 111 01/01/18 20:22 96 40 01/01/18 20:00 124 01/01/18 20:00 99.1 124 24 129/61 (83) 95 119/119 (119) 01/01/18 20:00 40 01/01/18 20:00 124 129/61 (83) 119/119 (119) 01/01/18 18:00 124 01/01/18 16:28 96 40 01/01/18 16:00 99.3 102 22 109/55 (73) 96 77/73 (74) 01/01/18 16:00 102 109/55 (73) 77/73 (74) 01/01/18 16:00 95 01/01/18 16:00 40 I/O 01/01/18 01/01/18 01/01/18 01/02/18 01/02/18 01/02/18 07:00 15:00 23:00 07:00 15:00 23:00 Intake Total 1093 ml 100 ml 974 ml 1205 ml 250 ml Output Total 2800 ml 1800 ml 1100 ml Balance -1707 ml 100 ml -826 ml 105 ml 250 ml Intake Oral 0 ml IV Total 1015 ml 100 ml 550 ml 550 ml 250 ml Tube Feeding 78 ml 334 ml 655 ml Tube Irrigant 90 ml Output Urine Total 2700 ml 1500 ml 700 ml Stool Total 100 ml 300 ml 400 ml Result Diagram: 01/02/18 0445 01/02/18 0445 Procedures BiPAP Objective Remarks GENERAL: sedated on vent support SKIN: Warm and dry. HEAD: Atraumatic. Normocephalic. EYES: Pupils equal and round. No scleral icterus. No injection or drainage. ENT: No nasal bleeding or discharge. Mucous membranes pink and moist. NECK: Trachea midline. No JVD. CARDIOVASCULAR: Regular rate and rhythm. RESPIRATORY: No accessory muscle use. Clear to auscultation. Breath sounds equal bilaterally. GASTROINTESTINAL: Abdomen soft, non-tender, nondistended. Hepatic and splenic margins not palpable. MUSCULOSKELETAL: Extremities without clubbing, cyanosis, or edema. No obvious deformities. NEUROLOGICAL: Awake and alert. No obvious cranial nerve deficits. Motor grossly within normal limits. Five out of 5 muscle strength in the arms and legs. Normal speech. PSYCHIATRIC: Appropriate mood and affect; insight and judgment normal. Assessment and Plan Assessment and Plan imp: ALERT, TRACHEOSTOMY IN PLACE respiratory failure/ FIO2 DOWN TO 40% plan vent support pulm toilet wean as tolerated increase activity Ileana Tejeda MD Jan 02, 2018 15:49
--- NOTE | 2018-01-02 16:38 | HHI.CCPN ---
Subjective Remarks/Hospital Course This is a 47-year-old female with a history of anxiety disorder, that presented to [facility] on with complaints of chest pain and dyspnea that has been lasting for the past 4 days. The patient was transferred to [facility]. Imaging and laboratory studies were initially performed which showed a chest x-ray with bilateral patchy airspace consolidation consistent with bronchial pneumonia, and her lactic acid level was noted to be 3.1. The patient's oxygen requirements continue to increase the patient became tachypneic with a respiratory rate in the 40s and tachycardic, heart rate in the 120s. Pulmonology was consulted, CT was performed which revealed no pulmonary emboli , will several cavitary lesions, dense consolidation at both lung bases, air bronchograms and extensive pneumomediastinum extending into the lower neck and upper chest .ICU was requested to see patient. Upon observation the patient was severely dyspneic, with significant accessory muscle movement, violently coughing hemoptysis. Decision made to intubate patient for airway protection. 12/17 Patient is sedated with Diprivan and versed infusion. afebrile. s/p bronch yesterday by Dr. Klein. 12/18 Patient remains sedated with Versed 10mg/hr and Fentanyl 250 mics. Tmax 102.1 yesterday. + MRSA in bronch and GPC/MRSA from [facility] 12/15 from [facility] 12/19: Patient developed respiratory distress and SVT this am with vent dyssynchrony with air trapping and elevated peak pressure. FiO2 increased to 100%, started on Nimbex infusion. Intermittently tachycardic, occasional bradycardia also. EKG shows sinus rhythm. Patient is very critical now. Will consult cardiology for JEANINE, and also regarding SVT. Chest x-ray shows worsening bilateral infiltrates concerning for ARDS 12/20: Remains intubated heavily sedated and neuromuscularly paralyzed to maintain ventilator synchrony and control peak pressures. Chest x-ray shows persistent bilateral infiltrates. JEANINE planned for today. All cultures so far positive for MRSA. Tachy Arrhythmia is better controlled after starting sotalol 12/21: CODE BLUE overnight when patient became bradycardic. Received epinephrine with chest compressions with return of spontaneous relief within 5 minutes according to RN. Currently on peripheral dopamine at 10 mcg/kg/min. FiO2 currently at 100%. Chest x-ray revealed worsening diffuse bilateral pulmonary infiltrates 12/22: T-max 101.1 Fahrenheit. Currently 98.9 Fahrenheit. +2493 cc past 24 hours. No bowel movement. Currently on roto-prone bed on epoprostenol at 50, 000 ng/kg/min aerosolized. On tube feeds Glucerna 1.5 at 20 cc an hour. 12/23: Overnight, when switching from supine to prone position patient 32nd episode of asystole resolved without chest compressions. We are currently patient has been prone position again with very slow with and without. Tolerating tube feeds now. Remains on cisatracurium drip at 4 mcg/min 12/24 Patient remains sedated and intubated. On Diprivan, Fentanyl, Versed in addition to Nimbex and Dopamine @5mics. Afebrile. 12/25 No events overnight. Remains sedated, intubated and on Rotoprone bed. On Dopamine 5 mics and Nimbex. T:99.7 12/26: Remains critically ill remains on prone ventilation. I will change on time/supine time to prospectively 5 hours/1 hour cycles. Increase PEEP to 10 to facilitate prolonged weaning. CXR shows persistent consolidation RUL 12/27: Remains critical but oxygenation stable. Off dopamine but hypotensive now with map of 58. Start on Levophed to keep map above 65. Change prone/ supine cycles to 4 hours each. Discontinue prone therapy in the next 24 hours if stable. WBC count is slightly improved 12/28: Transitioned from a prone bed to Roto-Rest today, tolerated well. Remains on Flolan will start weaning today per protocol. Urine output is excellent with Lasix. Remains on Levophed to maintain map above 65. Discontinue Nimbex today Subjective 12/29: hypoxia continues to improve. wbc uptrending, although remains afebrile. cultures NGTD. good diuresis. developing metabolic alkalosis most likely from contraction. 12/30: continues to diurese well. off rota-rest bed. on my evaluation today, however, awake and alert, follows commands. cannot lift hands off bed or head off bed at all. severely weak, most likely from critical illness polymyopathy ( prolonged neuromuscular blockade and steroid use). unable to successfully pass SBT. intubation and mechanical ventilation for > 2 weeks. will require tracheostomy to progress care further. 12/31: Status post trach yesterday. Tolerating SBT. Continues to have significant neuromuscular weakness. Attempt 2-4hour T piece today 01/01: Patient more critical today, WBC increased to 29.8. Diarrhea +. Tachycardic, Did not tolerate Tp today. Placed back on vent. ID has started Diflucan. Check repeat C Diff. 01/02: Tolerated 1 hour of T piece today, currently on CPAP. Muscle strength improving 4 out of 5 on exam today. WBC 27.7 today, slightly improved. Urine output excellent. C. difficile negative 2. Tachycardia persist Objective Vital Signs Date Time Temp Pulse Resp B/P (MAP) Pulse Ox O2 Delivery O2 Flow Rate FiO2 01/02/18 16:00 91 01/02/18 16:00 40 01/02/18 14:29 94 01/02/18 12:00 99.5 29 129/59 (82) Intake and Output 01/02/18 01/02/18 01/03/18 08:00 16:00 00:00 Intake Total 1205 ml 250 ml Output Total 1100 ml Balance 105 ml 250 ml Result Diagram: 01/02/18 0445 01/02/18 0445 Imaging Last Impressions Chest X-Ray 12/24/17 0600 Signed Impressions: Service Date/Time: Sunday, December 24, 2017 04:53 - CONCLUSION: Persistent dense consolidation right upper lobe and a new small area of consolidation in the left lower lobe. Yomi Lopez MD CT Angiography 12/16/17 0000 Signed Impressions: Service Date/Time: Saturday, December 16, 2017 13:49 - CONCLUSION: 1. Negative for pulmonary emboli. 2. Dense consolidation in the lungs especially the lung bases with several cavitary lesions as above. Findings are most characteristic of pneumonia. Cannot exclude septic embolic disease. No significant effusion. Malachi Hardin MD Objective Remarks GENERAL: 47-year-old female lying in bed. On CPAP SKIN: Warm and dry. HEAD: Normocephalic. EYES: No scleral icterus. No injection or drainage. ENT: Oral cavity is moist NECK: Supple, trachea midline. Left IJ CVL removed. New trach in place without significant bleeding CARDIOVASCULAR: Currently in sinus tachycardia. No murmurs RESPIRATORY: Anterior lung [place] equal breath bilaterally. Bilateral coarse rhonchi and wheezes. GASTROINTESTINAL: Abdomen soft, non-tender, nondistended. MUSCULOSKELETAL: No significant peripheral edema NEURO: Alert awake. follows commands. globally weak, functional quadriparesis. Muscle power slightly improved 4 out of 5, in all extremities Date of Insertion: Dec 20, 2017 Line: Central Venous Catheter Side: Left Location: Internal, Jugular A/P Problem List: (1) Acute hypoxemic respiratory failure ICD Code: J96.01 - Acute respiratory failure with hypoxia (2) Septic shock due to methicillin resistant Staphylococcus aureus ICD Code: A41.02 - Sepsis due to Methicillin resistant Staphylococcus aureus; R65.21 - Severe sepsis with septic shock (3) Sepsis due to methicillin resistant Staphylococcus aureus (MRSA) ICD Code: A41.02 - Sepsis due to Methicillin resistant Staphylococcus aureus (4) ARDS (adult respiratory distress syndrome) ICD Code: J80 - Acute respiratory distress syndrome (5) Cavitating pneumonia (6) 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 s/p tracheostomy. continue forced diuresis but reduce dose. 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 Up to chair daily Acetaminophen 650 mg liquid by tube every 6 hours as needed fever Respiratory: Acute hypoxemic respiratory failure status post tracheostomy Severe ARDS-improving Small right Pneumothorax Pneumomediastinum Hemoptysis by history Pulmonary cavitary lesions CPAP daily TP 1 hour today, increase TP time daily, s/p prone ventilation. s/p trach 12/30/17 Ventilator bundle. Albuterol/ipratropium aerosols every 4 hours with albuterol aerosols every 2 hours as needed dyspnea Budesonide 0.5/2 1 inhalation twice daily Methylprednisolone succinate 40 mg IV every 8 hours-reduced to 20 q8 s/p flolan 12/16 -CT Angio - extensive pneumomediastinum extending into neck and upper chest. Dense consolidation at both lung bases, air bronchograms , 2 cavitary lesions 12/16-bronchoscopy performed by Dr. Klein, no active sites noted for bleeding, moderate purulent mucus bilaterally noted 2 BAL samples sent CTS has followed for Pneumomediastinum-per Dr. Guadarrama no intervention at this time. Dr. Mireles pulmonology following Cardiovascular: Septic shock- resolved. Bradycardic arrest- resolved. Paroxysmal atrial fibrillation- resolved, no in NSR SVT- resolved. Probable infective endocarditis Elevated troponin- resolved. off vasopressors. On sotalol 40 mg twice daily by Dr. Bray 12/19 Tachycardic, will not add AV kareem blockers secondary to bradycardic arrest Monitor HR and BP keep MAP>65mmHg Transesophageal echocardiogram 12/20 revealed no signs of endocarditis. Preserved LV function. Trace MR/TR Echo 12/17 showed EF 60-65%. Echo 12/21 EF 50%. Cannot rule out regional wall motion and ability Troponin 1.26 from 3.4 and downward trending Aspirin 81 mg p.o. daily FEN/Renal: Hypernatremia- resolved. Acute intravascular volume overload- persistent. Monitor renal function Electrolytes replacement per protocol. Continue Lasix educe to 20mg Q12. Diuresis to dry weight s/p Diamox 500mg iv q8h x 3 doses. GI: Elevated AST and alkaline phosphatase - improving. Hypoalbuminemia Acute protein calorie malnutrition - moderate On tube feeds-Glucerna 1.5 with goal rate 55ml/hr Famotidine 20 mg twice daily GI prophylaxis Docusate sodium/senna 1 tablet twice daily for bowel regimen Having bowel movements. Check C. difficile Speech following ID: MRSA Bacteremia MRSA pneumonia Worsening sepsis leukocytosis Shahnaz UTI Septic shock- resolved. ABX per ID: Continue IV Vanc, Zyvox and DCd Cefepime. Diflucan per ID today DC p.o. Flagyl, repeat C. difficile neg Panculture follow up ceftaroline Dcd 12/27/17. Cubicin DCd 12/26 by ID JEANINE revealed no signs of endocarditis 12/20 12/15 [facility] from [facility]- MRSA 12/16 Bronch BAL- MRSA [facility] 12/16, 12/17 12/18: MRSA Blood culture 12/19 no growth 12/20 sputum/12/21 BAL MRSA influenza, pneumococcal and Legionella antigens- Negative Heme: Leukocytosis Normocytic anemia Monitor CBC. 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 Sliding scale insulin Accu-Cheks every 6 hours to maintain euglycemia/medium regimen and Levemir insulin 8 units subcu twice daily Increase Levemir to 12 units every 12 01/02. IV steroid dose had been decreased Low free T3 and T4 on levothyroxine 25 mcg daily with low T4. 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 Its more appropriate to work up when she is over the critical illness Prophylaxis: GI Prophylaxis Famotidine IV DVT Prophylaxis -- SCDs -heparin SQ Lines: DC central line and art line today after establishing PIV Maribel Pal MD Jan 02, 2018 16:38
[2018-01-02] MEDS ORDERED: METOPROLOL TARTRATE 25 MG TAB PO SCH (21:00)
[2018-01-02] MEDS: ALPRAZolam 0.5 MG TAB PO PRN (21:30)
[2018-01-03] VITALS (22 sets, daily range): BP systolic 116–123; BP diastolic 54–63; PULSE 88–138; RESP 13–23; TEMP 98.4–99.3; O2SAT 90–97
[2018-01-03] MEDS: LINEZOLID 600 MG PREMIX 300 ML IV SCH ×2 (02:52→14:29)
[2018-01-03 05:35] LABS: HEMATOCRIT 38.8 % (35.0-46.0); MEAN CELL VOLUME 89.4 FL (80.0-100.0); MEAN CORPUSCULAR HGB CONC 33.6 % (32.0-36.0); MEAN PLATELET VOLUME 9.3 FL (7.0-11.0); PLATELET COUNT 489 TH/MM3 (150-450); RED BLOOD COUNT 4.34 MIL/MM3 (4.00-5.30); RED CELL DISTRIBUTION WIDTH 13.8 % (11.6-17.2); WHITE BLOOD COUNT 33.5 TH/MM3 (4.0-11.0)
[2018-01-03] MEDS: LEVOTHYROXINE SODIUM 25 MCG TAB PO SCH (06:09)
[2018-01-03] MEDS: HEPARIN SODIUM - SQ 10,000 UNITS/ML VIAL SQ SCH ×3 (06:09→19:52)
[2018-01-03] MEDS: METOCLOPRAMIDE HCL 10 MG/2 ML VIAL IV PUSH SCH ×3 (06:10→23:13)
[2018-01-03] MEDS: INSULIN NovoLIN REGULAR SUPPLEMENTAL SCALE SQ SCH ×4 (06:10→23:13)
[2018-01-03] MEDS: CHLORHEXIDINE GLUCONATE 2 % 1 PACK (2 CLOTHS) TOP SCH (06:10)
[2018-01-03 06:14] LABS: BICARBONATE 24.7 MEQ/L (21.0-32.0); CALCIUM 9.3 MG/DL (8.5-10.1); CREATININE 0.77 MG/DL (0.50-1.00)
[2018-01-03] MEDS: RESP: BUDESONIDE 0.5 MG/2 ML NEB NEB SCH ×2 (08:11→19:30)
[2018-01-03] MEDS: FAMOTIDINE 20 MG TAB PO SCH ×2 (08:35→19:53)
[2018-01-03] MEDS: INSULIN DETEMIR 100 UNITS/ML VIAL SQ SCH ×2 (08:35→19:53)
[2018-01-03] MEDS: ASPIRIN 81 MG CHEW TAB CHEW SCH (08:35)
[2018-01-03] MEDS: CHLORHEXIDINE 0.12% (ORAL KIT) 15 ML CUP MT SCH ×2 (08:35→19:52)
[2018-01-03] MEDS: FUROSEMIDE 40 MG/4 ML VIAL IV PUSH SCH ×2 (08:36→18:09)
[2018-01-03] MEDS: SODIUM CHLORIDE 0.9% FLUSH 10 ML FLUSH IV FLUSH SCH ×3 (08:36→19:52)
[2018-01-03] MEDS: ARTIFICIAL TEARS OPTH OINT 3.5 APPLIC/3.5 GM TUBO EACH EYE SCH ×3 (08:37→21:00)
[2018-01-03] MEDS: MUPIROCIN 2% OINT 1 APPLIC/GM SYR EACH NARE SCH ×3 (08:37→21:00)
[2018-01-03] MEDS ORDERED: PHARMACY ORDERED LAB ONE (09:45)
[2018-01-03] MEDS: FLUCONAZOLE 100 MG TAB PO SCH (10:42)
[2018-01-03] MEDS: VANCOMYCIN 1,000 MG/NS 250 ML IV SCH ×2 (10:43)
[2018-01-03] MEDS: methylPREDNISolone SOD SUCC 40 MG/1 ML VIAL IV PUSH SCH ×2 (10:43→23:12)
--- NOTE | 2018-01-03 14:15 | PD.CARD.PN ---
Subjective Subjective Remarks Awake, off the vent, tele with mild ST Objective Medications Current Medications Medications (Trade) Dose Ordered Sig/Marily Route Start Time Stop Time Status Last Admin (NS Flush) 2 ml UNSCH PRN IV FLUSH 12/15/17 22:30 (NS Flush) 2 ml BID IV FLUSH 12/16/17 09:00 01/03/18 08:36 (Robitussin Dm 200-20 Mg/10 ml Liq) 10 ml Q4H PRN PO 12/15/17 22:30 Future Hold (Heparin Inj) 5,000 units Q8H SQ 12/16/17 12:00 01/03/18 12:40 (Morphine Inj) 1 mg Q4H PRN IM 12/16/17 09:15 Future Hold 12/16/17 10:11 (Mucinex Er) 600 mg BID PO 12/16/17 09:15 Future Hold 12/16/17 10:51 Fentanyl Citrate 250 ml @ 5 mls/hr TITRATE PRN IV 12/16/17 16:30 01/02/18 05:47 Miscellaneous Information 1 Q361D XX 12/16/17 16:45 (Chlorhexidine 2% Cloth) Taper DAILY@04 TOP 12/17/17 04:00 12/13/18 03:59 01/03/18 06:10 (Chlorhexidine 2% Cloth) 3 pack UNSCH PRN TOP 12/16/17 16:45 (Milk Of Magnesia Liq) 30 ml Q12H PRN PO 12/16/17 16:45 (Senokot) 17.2 mg Q12H PRN PO 12/16/17 16:45 12/28/17 08:39 (Dulcolax Supp) 10 mg DAILY PRN RECTAL 12/16/17 16:45 (Lactulose Liq) 30 ml DAILY PRN PO 12/16/17 16:45 (Peridex 0.12% Liq) 15 ml BID@08,20 MT 12/16/17 20:00 01/03/18 08:35 Potassium Chloride 100 ml @ 50 mls/hr Q2H PRN IV 12/17/17 07:45 12/31/17 09:33 Potassium Chloride 100 ml @ 50 mls/hr Q2H PRN IV 12/17/17 07:45 (K-Lyte Cl Eff) 50 meq UNSCH PRN PO 12/17/17 07:45 Potassium Chloride 100 ml @ 25 mls/hr UNSCH PRN IV 12/17/17 07:45 01/01/18 07:03 Potassium Chloride 100 ml @ 50 mls/hr Q2H PRN IV 12/17/17 07:45 Magnesium Sulfate 4 gm/Sodium Chloride 100 ml @ 50 mls/hr UNSCH PRN IV 12/17/17 07:45 (Mag-Ox) 800 mg UNSCH PRN PO 12/17/17 07:45 Magnesium Sulfate 2 gm/Sodium Chloride 100 ml @ 50 mls/hr UNSCH PRN IV 12/17/17 07:45 (K-Phos) 2,000 mg Q4H PRN PO 12/17/17 07:45 12/17/17 23:49 Sodium Phosphate 30 mmol/Sodium Chloride 250 ml @ 42 mls/hr UNSCH PRN IV 12/17/17 07:45 12/18/17 08:40 (K-Phos) 2,000 mg UNSCH PRN PO/TUBE 12/17/17 07:45 Potassium Phosphate 30 mmol/ Sodium Chloride 260 ml @ 42 mls/hr UNSCH PRN IV 12/17/17 07:45 12/19/17 07:57 (Albuterol Neb) 2.5 mg Q2HR NEB PRN NEB 12/21/17 08:30 01/01/18 20:21 (Pulmicort Respule Neb) 0.5 mg Q12HR NEB NEB 12/21/17 20:00 01/03/18 08:11 (NS Flush) DAILY IV FLUSH 12/22/17 09:00 01/03/18 08:36 (NS Flush) UNSCH PRN IV FLUSH 12/21/17 09:15 12/28/17 21:22 (Bactroban Nasal 2% Oint) Taper BID EACH NARE 12/21/17 21:00 12/17/18 20:59 01/02/18 21:31 (Lacrilube Opht Oint) 1 applic Q12HR EACH EYE 12/21/17 10:00 01/03/18 08:37 (D50w (Vial) Inj) 50 ml UNSCH PRN IV PUSH 12/21/17 09:15 (Glucagon Inj) 1 mg UNSCH PRN OTHER 12/21/17 09:15 (NovoLIN R SUPPLEMENTAL SCALE) 1 Q6HR SQ 12/21/17 12:00 01/03/18 12:40 (Tylenol 650 Mg/ 20 ml Liq) 650 mg Q6H PRN NG 12/21/17 09:30 01/02/18 08:21 (Pill Splitter) 1 ea UNSCH PRN OTHER 12/21/17 21:00 (Aspirin Chew) 81 mg DAILY CHEW 12/22/17 09:00 01/03/18 08:35 (Cathflo Activase Inj) 2 mg Q2H PRN INTRACATH 12/22/17 14:15 12/22/17 14:37 (Synthroid) 25 mcg DAILY@0600 PO 12/23/17 06:00 01/03/18 06:09 (Reglan Inj) 5 mg Q8H PRN IV PUSH 12/24/17 17:45 12/27/17 01:50 Pharmacy Profile Note 0 ml @ 0 mls/hr UNSCH OTHER 12/26/17 14:15 (Brethine Inj) 1 mg UNSCH PRN SQ 12/27/17 08:15 Linezolid 300 ml @ 300 mls/hr Q12H IV 12/27/17 15:00 01/03/18 02:52 (Reglan Inj) 5 mg Q8H IV PUSH 12/28/17 15:00 01/03/18 06:10 (Xanax) 0.5 mg Q8H PRN PO 12/30/17 11:00 01/02/18 21:30 (Pepcid) 20 mg BID PO 01/01/18 21:00 01/03/18 08:35 (Diflucan) 100 mg Q24H PO 01/01/18 11:00 01/08/18 10:59 01/03/18 10:42 (SoluMEDROL INJ) 20 mg Q12H IV PUSH 01/02/18 22:00 01/03/18 10:43 (Levemir Inj) 12 units Q12HR SQ 01/02/18 21:00 01/03/18 08:35 (Lasix Inj) 20 mg BID@,18 IV PUSH 01/02/18 18:00 01/03/18 08:36 Vancomycin HCl 1250 mg/Sodium Chloride 262.5 ml @ 250 mls/hr Q12H IV 01/03/18 22:00 Miscellaneous Information SPECIFIC LAB TO BE DRAWN:VANCOMYCIN TROUGH DATE TO... ONCE ONCE .XX 01/05/18 09:45 01/05/18 09:46 Vital Signs / I&O Vital Signs Date Time Temp Pulse Resp B/P (MAP) Pulse Ox O2 Delivery O2 Flow Rate FiO2 01/03/18 12:00 99.0 116 20 120/56 (77) 90 01/03/18 12:00 116 01/03/18 11:45 93 T-piece 5.00 50 01/03/18 10:00 118 01/03/18 08:11 40 01/03/18 08:11 97 40 01/03/18 08:00 88 01/03/18 08:00 40 01/03/18 08:00 98.4 88 16 118/55 (76) 97 Arterial Line 01/03/18 06:00 98 01/03/18 06:00 98 13 121/55 (77) 95 01/03/18 05:00 91 16 121/59 (79) 96 01/03/18 05:00 91 01/03/18 04:21 96 40 01/03/18 04:00 98.9 104 17 119/58 (78) 96 01/03/18 04:00 40 01/03/18 04:00 104 01/03/18 03:00 98 01/03/18 03:00 98 16 116/56 (76) 95 01/03/18 02:17 96 40 01/03/18 02:00 109 01/03/18 02:00 109 18 117/54 (75) 95 01/03/18 01:00 104 18 120/57 (78) 96 01/03/18 00:45 98 01/03/18 00:00 40 01/03/18 00:00 98.7 109 19 116/54 (74) 96 01/03/18 00:00 109 01/02/18 23:00 104 18 122/60 (80) 96 01/02/18 23:00 104 01/02/18 22:00 121 20 124/63 (83) 95 01/02/18 22:00 121 01/02/18 21:00 117 01/02/18 21:00 117 23 128/58 (81) 94 01/02/18 20:26 96 40 01/02/18 20:26 40 01/02/18 20:00 119 01/02/18 20:00 40 01/02/18 20:00 98.8 119 20 128/61 (83) 95 01/02/18 18:00 117 01/02/18 16:00 91 01/02/18 16:00 98.8 91 19 112/58 (76) 96 01/02/18 16:00 40 01/02/18 15:30 40 01/02/18 14:34 Trach Collar 50 01/02/18 14:29 94 40 I/O 01/02/18 01/02/18 01/02/18 01/03/18 01/03/18 01/03/18 07:00 15:00 23:00 07:00 15:00 23:00 Intake Total 1205 ml 250 ml 685 ml 750 ml Output Total 1100 ml 1200 ml 1150 ml Balance 105 ml 250 ml -515 ml -400 ml IV Total 550 ml 250 ml 250 ml Tube Feeding 655 ml 345 ml 630 ml Tube Irrigant 90 ml 120 ml Output Urine Total 700 ml 1000 ml 650 ml Stool Total 400 ml 200 ml 500 ml Physical Exam GENERAL: In NAD SKIN: Warm and dry. HEAD: Normocephalic. EYES: No scleral icterus. No injection or drainage. NECK: Supple, trachea midline. No JVD or lymphadenopathy. CARDIOVASCULAR: Regular rate and rhythm without murmurs, gallops, or rubs. RESPIRATORY: Breath sounds equal bilaterally. No accessory muscle use. Bilat diffuse rhonchi. GASTROINTESTINAL: Abdomen soft, non-tender, nondistended. MUSCULOSKELETAL: No cyanosis, no edema. Laboratory Laboratory Tests Test 01/03/18 05:15 01/03/18 09:00 White Blood Count 33.5 TH/MM3 Red Blood Count 4.34 MIL/MM3 Hemoglobin 13.0 GM/DL Hematocrit 38.8 % Mean Corpuscular Volume 89.4 FL Mean Corpuscular Hemoglobin 30.0 PG Mean Corpuscular Hemoglobin Concent 33.6 % Red Cell Distribution Width 13.8 % Platelet Count 489 TH/MM3 Mean Platelet Volume 9.3 FL Blood Urea Nitrogen 37 MG/DL Creatinine 0.77 MG/DL Random Glucose 260 MG/DL Calcium Level 9.3 MG/DL Sodium Level 135 MEQ/L Potassium Level 5.6 MEQ/L Chloride Level 101 MEQ/L Carbon Dioxide Level 24.7 MEQ/L Anion Gap 9 MEQ/L Estimat Glomerular Filtration Rate 81 ML/MIN Vancomycin Level Trough 16.6 MCG/ML Assessment and Plan Problem List: (1) Sepsis due to methicillin resistant Staphylococcus aureus (MRSA) ICD Codes: A41.02 - Sepsis due to Methicillin resistant Staphylococcus aureus (2) ARDS (adult respiratory distress syndrome) ICD Codes: J80 - Acute respiratory distress syndrome (3) Bilateral pneumonia ICD Codes: J18.9 - Pneumonia, unspecified organism Status: Acute (4) Acute hypoxemic respiratory failure ICD Codes: J96.01 - Acute respiratory failure with hypoxia (5) Paroxysmal atrial fibrillation ICD Codes: I48.0 - Paroxysmal atrial fibrillation (6) Bradycardia ICD Codes: R00.1 - Bradycardia, unspecified Assessment and Plan Stable from cardiac standpoint. Off the vent. BP stable, off pressors. Stays in SR, no recurrent AF off sotalol. JEANINE with no evidence of endocarditis, LV fx preserved. Continue current program with ICU care. Continue monitoring for AF, off sotalol due to bradycardia and hypotension. Increase activity, PT. Will sign off. Valorie Bray MD Jan 03, 2018 14:14
--- NOTE | 2018-01-03 14:41 | HHI.IDPN ---
Subjective Subjective Remarks Patient is a 47-year-old female, who initially presented to [facility] ED complaining of 4 day history of chest pain and shortness of breath. In have any other history. She was apparently coughing and was bringing up some brownish phlegm. There was no mention of any fever or chills. No nausea or vomiting. No urinary complaints. Chest x-ray showed bilateral patchy basilar infiltrates. CTA did not show any pulmonary embolism, showed bilateral infiltrates with some cavitary lesions noted. She was transferred to the main hospital, and she apparently had some blood in the sputum. She ended up getting intubated. [facility] did bronchoscopy on her. Patient currently sedated postintubation. Her blood pressure is okay and she is not hypotensive. She is tachycardic. Infectious disease consultation has been requested to evaluate the patient with pneumonia Notes reviewed D/W RN Temps 99+ BP ok Did about 3 hours T-piece On CPAP now Awake, not SOB, no abdominal pain S/P trach 12/30 WBC higher again Last CXR better Having diarrhea, C diff negative Tolerating TF Antibiotics vanco IV zyvox Diflucan Current Medications Medications (Trade) Dose Ordered Sig/Marily Route Start Time Stop Time Status Last Admin (NS Flush) 2 ml UNSCH PRN IV FLUSH 12/15/17 22:30 (NS Flush) 2 ml BID IV FLUSH 12/16/17 09:00 01/03/18 08:36 (Robitussin Dm 200-20 Mg/10 ml Liq) 10 ml Q4H PRN PO 12/15/17 22:30 Future Hold (Heparin Inj) 5,000 units Q8H SQ 12/16/17 12:00 01/03/18 12:40 (Morphine Inj) 1 mg Q4H PRN IM 12/16/17 09:15 Future Hold 12/16/17 10:11 (Mucinex Er) 600 mg BID PO 12/16/17 09:15 Future Hold 12/16/17 10:51 Fentanyl Citrate 250 ml @ 5 mls/hr TITRATE PRN IV 12/16/17 16:30 01/02/18 05:47 Miscellaneous Information 1 Q361D XX 12/16/17 16:45 (Chlorhexidine 2% Cloth) Taper DAILY@04 TOP 12/17/17 04:00 12/13/18 03:59 01/03/18 06:10 (Chlorhexidine 2% Cloth) 3 pack UNSCH PRN TOP 12/16/17 16:45 (Milk Of Magnesia Liq) 30 ml Q12H PRN PO 12/16/17 16:45 (Senokot) 17.2 mg Q12H PRN PO 12/16/17 16:45 12/28/17 08:39 (Dulcolax Supp) 10 mg DAILY PRN RECTAL 12/16/17 16:45 (Lactulose Liq) 30 ml DAILY PRN PO 12/16/17 16:45 (Peridex 0.12% Liq) 15 ml BID@08,20 MT 12/16/17 20:00 01/03/18 08:35 Potassium Chloride 100 ml @ 50 mls/hr Q2H PRN IV 12/17/17 07:45 12/31/17 09:33 Potassium Chloride 100 ml @ 50 mls/hr Q2H PRN IV 12/17/17 07:45 (K-Lyte Cl Eff) 50 meq UNSCH PRN PO 12/17/17 07:45 Potassium Chloride 100 ml @ 25 mls/hr UNSCH PRN IV 12/17/17 07:45 01/01/18 07:03 Potassium Chloride 100 ml @ 50 mls/hr Q2H PRN IV 12/17/17 07:45 Magnesium Sulfate 4 gm/Sodium Chloride 100 ml @ 50 mls/hr UNSCH PRN IV 12/17/17 07:45 (Mag-Ox) 800 mg UNSCH PRN PO 12/17/17 07:45 Magnesium Sulfate 2 gm/Sodium Chloride 100 ml @ 50 mls/hr UNSCH PRN IV 12/17/17 07:45 (K-Phos) 2,000 mg Q4H PRN PO 12/17/17 07:45 12/17/17 23:49 Sodium Phosphate 30 mmol/Sodium Chloride 250 ml @ 42 mls/hr UNSCH PRN IV 12/17/17 07:45 12/18/17 08:40 (K-Phos) 2,000 mg UNSCH PRN PO/TUBE 12/17/17 07:45 Potassium Phosphate 30 mmol/ Sodium Chloride 260 ml @ 42 mls/hr UNSCH PRN IV 12/17/17 07:45 12/19/17 07:57 (Albuterol Neb) 2.5 mg Q2HR NEB PRN NEB 12/21/17 08:30 01/01/18 20:21 (Pulmicort Respule Neb) 0.5 mg Q12HR NEB NEB 12/21/17 20:00 01/03/18 08:11 (NS Flush) DAILY IV FLUSH 12/22/17 09:00 01/03/18 08:36 (NS Flush) UNSCH PRN IV FLUSH 12/21/17 09:15 12/28/17 21:22 (Bactroban Nasal 2% Oint) Taper BID EACH NARE 12/21/17 21:00 12/17/18 20:59 01/02/18 21:31 (Lacrilube Opht Oint) 1 applic Q12HR EACH EYE 12/21/17 10:00 01/03/18 08:37 (D50w (Vial) Inj) 50 ml UNSCH PRN IV PUSH 12/21/17 09:15 (Glucagon Inj) 1 mg UNSCH PRN OTHER 12/21/17 09:15 (NovoLIN R SUPPLEMENTAL SCALE) 1 Q6HR SQ 12/21/17 12:00 01/03/18 12:40 (Tylenol 650 Mg/ 20 ml Liq) 650 mg Q6H PRN NG 12/21/17 09:30 01/02/18 08:21 (Pill Splitter) 1 ea UNSCH PRN OTHER 12/21/17 21:00 (Aspirin Chew) 81 mg DAILY CHEW 12/22/17 09:00 01/03/18 08:35 (Cathflo Activase Inj) 2 mg Q2H PRN INTRACATH 12/22/17 14:15 12/22/17 14:37 (Synthroid) 25 mcg DAILY@0600 PO 12/23/17 06:00 01/03/18 06:09 (Reglan Inj) 5 mg Q8H PRN IV PUSH 12/24/17 17:45 12/27/17 01:50 Pharmacy Profile Note 0 ml @ 0 mls/hr UNSCH OTHER 12/26/17 14:15 (Brethine Inj) 1 mg UNSCH PRN SQ 12/27/17 08:15 Linezolid 300 ml @ 300 mls/hr Q12H IV 12/27/17 15:00 01/03/18 14:29 (Reglan Inj) 5 mg Q8H IV PUSH 12/28/17 15:00 01/03/18 14:31 (Xanax) 0.5 mg Q8H PRN PO 12/30/17 11:00 01/02/18 21:30 (Pepcid) 20 mg BID PO 01/01/18 21:00 01/03/18 08:35 (Diflucan) 100 mg Q24H PO 01/01/18 11:00 01/08/18 10:59 01/03/18 10:42 (SoluMEDROL INJ) 20 mg Q12H IV PUSH 01/02/18 22:00 01/03/18 10:43 (Levemir Inj) 12 units Q12HR SQ 01/02/18 21:00 01/03/18 08:35 (Lasix Inj) 20 mg BID@09,18 IV PUSH 01/02/18 18:00 01/03/18 08:36 Vancomycin HCl 1250 mg/Sodium Chloride 262.5 ml @ 250 mls/hr Q12H IV 01/03/18 22:00 Miscellaneous Information SPECIFIC LAB TO BE DRAWN:VANCOMYCIN TROUGH DATE TO... ONCE ONCE .XX 01/05/18 09:45 01/05/18 09:46 Lines PIV Past Medical History Anxiety Past Surgical History Cholecystectomy Hysterectomy Allergies: Coded Allergies: No Known Allergies (Unverified , 12/15/17) Objective . Vital Signs Date Time Temp Pulse Resp B/P (MAP) Pulse Ox O2 Delivery O2 Flow Rate FiO2 01/03/18 12:00 99.0 116 20 120/56 (77) 90 01/03/18 12:00 116 01/03/18 11:45 93 T-piece 5.00 50 01/03/18 10:00 118 01/03/18 08:11 40 01/03/18 08:11 97 40 01/03/18 08:00 88 01/03/18 08:00 40 01/03/18 08:00 98.4 88 16 118/55 (76) 97 Arterial Line 01/03/18 06:00 98 01/03/18 06:00 98 13 121/55 (77) 95 01/03/18 05:00 91 16 121/59 (79) 96 01/03/18 05:00 91 01/03/18 04:21 96 40 01/03/18 04:00 98.9 104 17 119/58 (78) 96 01/03/18 04:00 40 01/03/18 04:00 104 01/03/18 03:00 98 01/03/18 03:00 98 16 116/56 (76) 95 01/03/18 02:17 96 40 01/03/18 02:00 109 01/03/18 02:00 109 18 117/54 (75) 95 01/03/18 01:00 104 18 120/57 (78) 96 01/03/18 00:45 98 01/03/18 00:00 40 01/03/18 00:00 98.7 109 19 116/54 (74) 96 01/03/18 00:00 109 01/02/18 23:00 104 18 122/60 (80) 96 01/02/18 23:00 104 01/02/18 22:00 121 20 124/63 (83) 95 01/02/18 22:00 121 01/02/18 21:00 117 01/02/18 21:00 117 23 128/58 (81) 94 01/02/18 20:26 96 40 01/02/18 20:26 40 01/02/18 20:00 119 01/02/18 20:00 40 01/02/18 20:00 98.8 119 20 128/61 (83) 95 01/02/18 18:00 117 01/02/18 16:00 91 01/02/18 16:00 98.8 91 19 112/58 (76) 96 01/02/18 16:00 40 01/02/18 15:30 40 . Laboratory Tests Test 01/02/18 04:45 01/03/18 05:15 White Blood Count 27.7 TH/MM3 33.5 TH/MM3 Red Blood Count 4.30 MIL/MM3 4.34 MIL/MM3 Hemoglobin 12.6 GM/DL 13.0 GM/DL Hematocrit 37.8 % 38.8 % Mean Corpuscular Volume 87.9 FL 89.4 FL Mean Corpuscular Hemoglobin 29.4 PG 30.0 PG Mean Corpuscular Hemoglobin Concent 33.4 % 33.6 % Red Cell Distribution Width 13.8 % 13.8 % Platelet Count 722 TH/MM3 489 TH/MM3 Mean Platelet Volume 8.4 FL 9.3 FL Neutrophils (%) (Auto) 91.3 % Lymphocytes (%) (Auto) 3.7 % Monocytes (%) (Auto) 4.8 % Eosinophils (%) (Auto) 0.0 % Basophils (%) (Auto) 0.2 % Neutrophils # (Auto) 25.3 TH/MM3 Lymphocytes # (Auto) 1.0 TH/MM3 Monocytes # (Auto) 1.3 TH/MM3 Eosinophils # (Auto) 0.0 TH/MM3 Basophils # (Auto) 0.1 TH/MM3 CBC Comment AUTO DIFF Differential Total Cells Counted 100 Neutrophils % (Manual) 93 % Lymphocytes % 3 % Monocytes % 2 % Basophils % 1 % Neutrophils # (Manual) 26.0 TH/MM3 Myelocytes 1 % Differential Comment FINAL DIFF MANUAL Platelet Estimate HIGH Platelet Morphology Comment NORMAL Red Cell Morphology Comment NORMAL Laboratory Tests Test 01/02/18 04:45 01/03/18 05:15 Blood Urea Nitrogen 35 MG/DL 37 MG/DL Creatinine 0.74 MG/DL 0.77 MG/DL Random Glucose 268 MG/DL 260 MG/DL Total Protein 7.6 GM/DL Albumin 3.0 GM/DL Calcium Level 9.1 MG/DL 9.3 MG/DL Phosphorus Level 2.9 MG/DL Magnesium Level 2.0 MG/DL Alkaline Phosphatase 145 U/L Aspartate Amino Transf (AST/SGOT) 14 U/L Alanine Aminotransferase (ALT/SGPT) 36 U/L Total Bilirubin 0.5 MG/DL Sodium Level 138 MEQ/L 135 MEQ/L Potassium Level 4.1 MEQ/L 5.6 MEQ/L Chloride Level 102 MEQ/L 101 MEQ/L Carbon Dioxide Level 27.2 MEQ/L 24.7 MEQ/L Anion Gap 9 MEQ/L 9 MEQ/L Estimat Glomerular Filtration Rate 84 ML/MIN 81 ML/MIN Microbiology Date/Time Source Procedure Growth Status 01/01/18 15:53 Blood Peripheral Aerobic Blood Culture - Preliminary NO GROWTH IN 2 DAYS Resulted 01/01/18 15:53 Blood Peripheral Anaerobic Blood Culture - Preliminary NO GROWTH IN 2 DAYS Resulted 01/01/18 15:48 Blood Peripheral Aerobic Blood Culture - Preliminary NO GROWTH IN 2 DAYS Resulted 01/01/18 15:48 Blood Peripheral Anaerobic Blood Culture - Preliminary NO GROWTH IN 2 DAYS Resulted 01/01/18 16:30 Sputum Endotracheal Gram Stain - Final Resulted 01/01/18 16:30 Sputum Culture - Preliminary Mold Species Resulted 01/01/18 14:30 Urine Catheterized Urine Urine Culture - Final NO GROWTH IN 48 HOURS. Complete Imaging Chest X-Ray 01/02/18 06 Signed Impressions: Service Date/Time: Tuesday, January 02, 2018 03:45 - CONCLUSION: 1. Residual patchy densities right upper lobe and left lower lobe. Miguel Lynne MD Chest X-Ray 01/01/18599 Signed Impressions: Service Date/Time: Monday, January 01, 2018 02:48 - CONCLUSION: Improved aeration of the right lung with minimal bibasilar densities. Miguel Lynne MD Chest X-Ray 12/28/17599 Signed Impressions: Service Date/Time: Thursday, December 28, 2017 09:28 - CONCLUSION: Unchanged right upper lobe infiltrate. Yomi Shipley Jr., MD CT Angiography 12/16/17 0000 Signed Impressions: Service Date/Time: Saturday, December 16, 2017 13:49 - CONCLUSION: 1. Negative for pulmonary emboli. 2. Dense consolidation in the lungs especially the lung bases with several cavitary lesions as above. Findings are most characteristic of pneumonia. Cannot exclude septic embolic disease. No significant effusion. Malachi Hardin MD Physical Exam GENERAL: Awake and following commands, NAD. On CPAP SKIN: Warm and dry. No rash EYES: non icteric ENT: moist mucosae, no thrush NECK: Tracheostomy site ok CARDIOVASCULAR: Tachycardic, regular rhythm on monitor; no murmurs, rubs gallops RESPIRATORY: Coarse BS dominga. Decreased at bases ABDOMEN: soft , not tender, not distended BS+ EXTREMITIES: Improving edema : clear yellow urine NEUROLOGICAL: Awake, responding PSYCHIATRIC: Awake, and cooperative LINE: No evidence of infection Assessment & Plan Remarks IMPRESSION Sepsis present, high grade, on admission, has MRSA on blood cultures - S/P arrest - last (+) BC 12/18 Bilateral pneumonia, some with cavitation - C/S with MRSA - CXR improving Very worrisome for endocarditis - clinically , but JEANINE negative Respiratory failure. worsening infiltrates, PNA - S/P trach - CXR improving Leukocytosis, persistent, up again Diarrhea, C diff negative x 2 RECOMMENDATION Continue zyvox Continue IV Vanco Continue Diflucan - to finish 01/08 Follow CBC Monitor progress Weaning per CCM D/W Liliam Ritchie MD Jan 03, 2018 14:40
--- NOTE | 2018-01-03 18:15 | HHI.PR ---
Subjective Remarks on the ventilator alert no distress FIO2 40% Objective Vital Signs Date Time Temp Pulse Resp B/P (MAP) Pulse Ox O2 Delivery O2 Flow Rate FiO2 01/03/18 16:00 99.3 121 23 123/58 (79) 96 01/03/18 16:00 121 01/03/18 16:00 40 01/03/18 15:36 96 40 01/03/18 14:00 138 01/03/18 12:00 99.0 116 20 120/56 (77) 90 01/03/18 12:00 116 01/03/18 11:45 93 T-piece 5.00 50 01/03/18 10:00 118 01/03/18 08:11 40 01/03/18 08:11 97 40 01/03/18 08:00 88 01/03/18 08:00 40 01/03/18 08:00 98.4 88 16 118/55 (76) 97 Arterial Line 01/03/18 06:00 98 01/03/18 06:00 98 13 121/55 (77) 95 01/03/18 05:00 91 16 121/59 (79) 96 01/03/18 05:00 91 01/03/18 04:21 96 40 01/03/18 04:00 98.9 104 17 119/58 (78) 96 01/03/18 04:00 40 01/03/18 04:00 104 01/03/18 03:00 98 01/03/18 03:00 98 16 116/56 (76) 95 01/03/18 02:17 96 40 01/03/18 02:00 109 01/03/18 02:00 109 18 117/54 (75) 95 01/03/18 01:00 104 18 120/57 (78) 96 01/03/18 00:45 98 01/03/18 00:00 40 01/03/18 00:00 98.7 109 19 116/54 (74) 96 01/03/18 00:00 109 01/02/18 23:00 104 18 122/60 (80) 96 01/02/18 23:00 104 01/02/18 22:00 121 20 124/63 (83) 95 01/02/18 22:00 121 01/02/18 21:00 117 01/02/18 21:00 117 23 128/58 (81) 94 01/02/18 20:26 96 40 01/02/18 20:26 40 01/02/18 20:00 119 01/02/18 20:00 40 01/02/18 20:00 98.8 119 20 128/61 (83) 95 I/O 01/02/18 01/02/18 01/02/18 01/03/18 01/03/18 01/03/18 07:00 15:00 23:00 07:00 15:00 23:00 Intake Total 1205 ml 250 ml 685 ml 750 ml Output Total 1100 ml 1200 ml 1150 ml Balance 105 ml 250 ml -515 ml -400 ml IV Total 550 ml 250 ml 250 ml Tube Feeding 655 ml 345 ml 630 ml Tube Irrigant 90 ml 120 ml Output Urine Total 700 ml 1000 ml 650 ml Stool Total 400 ml 200 ml 500 ml Result Diagram: 01/03/1815 01/03/18514 Procedures BiPAP Objective Remarks GENERAL: sedated on vent support SKIN: Warm and dry. HEAD: Atraumatic. Normocephalic. EYES: Pupils equal and round. No scleral icterus. No injection or drainage. ENT: No nasal bleeding or discharge. Mucous membranes pink and moist. NECK: Trachea midline. No JVD. CARDIOVASCULAR: Regular rate and rhythm. RESPIRATORY: No accessory muscle use. Clear to auscultation. Breath sounds equal bilaterally. GASTROINTESTINAL: Abdomen soft, non-tender, nondistended. Hepatic and splenic margins not palpable. MUSCULOSKELETAL: Extremities without clubbing, cyanosis, or edema. No obvious deformities. NEUROLOGICAL: Awake and alert. No obvious cranial nerve deficits. Motor grossly within normal limits. Five out of 5 muscle strength in the arms and legs. Normal speech. PSYCHIATRIC: Appropriate mood and affect; insight and judgment normal. Assessment and Plan Assessment and Plan imp: ALERT, TRACHEOSTOMY IN PLACE respiratory failure/ plan vent support pulm toilet wean as tolerated Ileana Tejeda MD Jan 03, 2018 18:15
[2018-01-03] MEDS: fentaNYL DRIP 250 ML IV PRN (19:53)
--- NOTE | 2018-01-03 20:34 | HHI.CCPN ---
Subjective Remarks/Hospital Course This is a 47-year-old female with a history of anxiety disorder, that presented to [place] on with complaints of chest pain and dyspnea that has been lasting for the past 4 days. The patient was transferred to [facility]. Imaging and laboratory studies were initially performed which showed a chest x-ray with bilateral patchy airspace consolidation consistent with bronchial pneumonia, and her lactic acid level was noted to be 3.1. The patient's oxygen requirements continue to increase the patient became tachypneic with a respiratory rate in the 40s and tachycardic, heart rate in the 120s. Pulmonology was consulted, CT was performed which revealed no pulmonary emboli , will several cavitary lesions, dense consolidation at both lung bases, air bronchograms and extensive pneumomediastinum extending into the lower neck and upper chest .ICU was requested to see patient. Upon observation the patient was severely dyspneic, with significant accessory muscle movement, violently coughing hemoptysis. Decision made to intubate patient for airway protection. 12/17 Patient is sedated with Diprivan and versed infusion. afebrile. s/p bronch yesterday by Dr. Klein. 12/18 Patient remains sedated with Versed 10mg/hr and Fentanyl 250 mics. Tmax 102.1 yesterday. + MRSA in bronch and GPC/MRSA from [facility] 12/15 from [place] 12/19: Patient developed respiratory distress and SVT this am with vent dyssynchrony with air trapping and elevated peak pressure. FiO2 increased to 100%, started on Nimbex infusion. Intermittently tachycardic, occasional bradycardia also. EKG shows sinus rhythm. Patient is very critical now. Will consult cardiology for JEANINE, and also regarding SVT. Chest x-ray shows worsening bilateral infiltrates concerning for ARDS 12/20: Remains intubated heavily sedated and neuromuscularly paralyzed to maintain ventilator synchrony and control peak pressures. Chest x-ray shows persistent bilateral infiltrates. JEANINE planned for today. All cultures so far positive for MRSA. Tachy Arrhythmia is better controlled after starting sotalol 12/21: CODE BLUE overnight when patient became bradycardic. Received epinephrine with chest compressions with return of spontaneous relief within 5 minutes according to RN. Currently on peripheral dopamine at 10 mcg/kg/min. FiO2 currently at 100%. Chest x-ray revealed worsening diffuse bilateral pulmonary infiltrates 12/22: T-max 101.1 Fahrenheit. Currently 98.9 Fahrenheit. +2493 cc past 24 hours. No bowel movement. Currently on roto-prone bed on epoprostenol at 50, 000 ng/kg/min aerosolized. On tube feeds Glucerna 1.5 at 20 cc an hour. 12/23: Overnight, when switching from supine to prone position patient 32nd episode of asystole resolved without chest compressions. We are currently patient has been prone position again with very slow with and without. Tolerating tube feeds now. Remains on cisatracurium drip at 4 mcg/min 12/24 Patient remains sedated and intubated. On Diprivan, Fentanyl, Versed in addition to Nimbex and Dopamine @5mics. Afebrile. 12/25 No events overnight. Remains sedated, intubated and on Rotoprone bed. On Dopamine 5 mics and Nimbex. T:99.7 12/26: Remains critically ill remains on prone ventilation. I will change on time/supine time to prospectively 5 hours/1 hour cycles. Increase PEEP to 10 to facilitate prolonged weaning. CXR shows persistent consolidation RUL 12/27: Remains critical but oxygenation stable. Off dopamine but hypotensive now with map of 58. Start on Levophed to keep map above 65. Change prone/ supine cycles to 4 hours each. Discontinue prone therapy in the next 24 hours if stable. WBC count is slightly improved 12/28: Transitioned from a prone bed to Roto-Rest today, tolerated well. Remains on Flolan will start weaning today per protocol. Urine output is excellent with Lasix. Remains on Levophed to maintain map above 65. Discontinue Nimbex today 12/29: hypoxia continues to improve. wbc uptrending, although remains afebrile. cultures NGTD. good diuresis. developing metabolic alkalosis most likely from contraction. 12/30: continues to diurese well. off rota-rest bed. on my evaluation today, however, awake and alert, follows commands. cannot lift hands off bed or head off bed at all. severely weak, most likely from critical illness polymyopathy ( prolonged neuromuscular blockade and steroid use). unable to successfully pass SBT. intubation and mechanical ventilation for > 2 weeks. will require tracheostomy to progress care further. 12/31: Status post trach yesterday. Tolerating SBT. Continues to have significant neuromuscular weakness. Attempt 2-4hour T piece today 01/01: Patient more critical today, WBC increased to 29.8. Diarrhea +. Tachycardic, Did not tolerate Tp today. Placed back on vent. ID has started Diflucan. Check repeat C Diff. 01/02: Tolerated 1 hour of T piece today, currently on CPAP. Muscle strength improving 4 out of 5 on exam today. WBC 27.7 today, slightly improved. Urine output excellent. C. difficile negative 2. Tachycardia persist Subjective 01/03: tachycardia somewhat improved. wbc still uptrending. sputum growing mold species, speciation and sensitivities to follow. did tolerate more t-piece time than yesterday. Objective Vital Signs Date Time Temp Pulse Resp B/P (MAP) Pulse Ox O2 Delivery O2 Flow Rate FiO2 01/03/18 19:30 95 40 01/03/18 18:00 119 01/03/18 16:00 99.3 23 123/58 (79) 01/03/18 11:45 T-piece 5.00 Intake and Output 01/03/18 01/03/18 01/04/18 08:00 16:00 00:00 Intake Total 750 ml 1101 ml Output Total 1150 ml 1350 ml Balance -400 ml -249 ml Result Diagram: 01/03/18 0515 01/03/18 0515 Other Results Microbiology Date/Time Source Procedure Growth Status 01/01/18 14:30 Urine Catheterized Urine Urine Culture - Final NO GROWTH IN 48 HOURS. Complete Imaging Last Impressions Chest X-Ray 12/24/17 0600 Signed Impressions: Service Date/Time: Sunday, December 24, 2017 04:53 - CONCLUSION: Persistent dense consolidation right upper lobe and a new small area of consolidation in the left lower lobe. Yomi Lopez MD CT Angiography 12/16/17 0000 Signed Impressions: Service Date/Time: Saturday, December 16, 2017 13:49 - CONCLUSION: 1. Negative for pulmonary emboli. 2. Dense consolidation in the lungs especially the lung bases with several cavitary lesions as above. Findings are most characteristic of pneumonia. Cannot exclude septic embolic disease. No significant effusion. Malachi Hardin MD Objective Remarks GENERAL: 47-year-old female lying in bed. On CPAP SKIN: Warm and dry. HEAD: Normocephalic. EYES: No scleral icterus. No injection or drainage. ENT: Oral cavity is moist NECK: Supple, trachea midline. Left IJ CVL removed. New trach in place without significant bleeding CARDIOVASCULAR: Currently in sinus tachycardia. No murmurs RESPIRATORY: Anterior lung [place] equal breath bilaterally. Bilateral coarse rhonchi and wheezes. GASTROINTESTINAL: Abdomen soft, non-tender, nondistended. MUSCULOSKELETAL: No significant peripheral edema NEURO: Alert awake. follows commands. globally weak, functional quadriparesis. Muscle power slightly improved 4 out of 5, in all extremities A/P Problem List: (1) Acute hypoxemic respiratory failure ICD Code: J96.01 - Acute respiratory failure with hypoxia (2) Septic shock due to methicillin resistant Staphylococcus aureus ICD Code: A41.02 - Sepsis due to Methicillin resistant Staphylococcus aureus; R65.21 - Severe sepsis with septic shock (3) Sepsis due to methicillin resistant Staphylococcus aureus (MRSA) ICD Code: A41.02 - Sepsis due to Methicillin resistant Staphylococcus aureus (4) ARDS (adult respiratory distress syndrome) ICD Code: J80 - Acute respiratory distress syndrome (5) Cavitating pneumonia (6) 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 s/p tracheostomy. Likely has mold species in sputum which given rise in wbc is likely clinically significant. continue slow vent wean. 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 Up to chair daily Acetaminophen 650 mg liquid by tube every 6 hours as needed fever Respiratory: Acute hypoxemic respiratory failure status post tracheostomy Severe ARDS-improving Small right Pneumothorax Pneumomediastinum Hemoptysis by history Pulmonary cavitary lesions CPAP daily TP 1 hour today, increase TP time daily, s/p prone ventilation. s/p trach 12/30/17 Ventilator bundle. Albuterol/ipratropium aerosols every 4 hours with albuterol aerosols every 2 hours as needed dyspnea Budesonide 0.5/2 1 inhalation twice daily Methylprednisolone succinate 40 mg IV every 8 hours-reduced to 20 q8 s/p flolan 12/16 -CT Angio - extensive pneumomediastinum extending into neck and upper chest. Dense consolidation at both lung bases, air bronchograms , 2 cavitary lesions 12/16-bronchoscopy performed by Dr. Klein, no active sites noted for bleeding, moderate purulent mucus bilaterally noted 2 BAL samples sent CTS has followed for Pneumomediastinum-per Dr. Guadarrama no intervention at this time. Dr. Mireles pulmonology following Cardiovascular: Septic shock- resolved. Bradycardic arrest- resolved. Paroxysmal atrial fibrillation- resolved, no in NSR SVT- resolved. Probable infective endocarditis Elevated troponin- resolved. off vasopressors. On sotalol 40 mg twice daily by Dr. Bray 12/19 Tachycardic, will not add AV kareem blockers secondary to bradycardic arrest Monitor HR and BP keep MAP>65mmHg Transesophageal echocardiogram 12/20 revealed no signs of endocarditis. Preserved LV function. Trace MR/TR Echo 12/17 showed EF 60-65%. Echo 12/21 EF 50%. Cannot rule out regional wall motion and ability Troponin 1.26 from 3.4 and downward trending Aspirin 81 mg p.o. daily FEN/Renal: Hypernatremia- resolved. Acute intravascular volume overload- persistent. Monitor renal function Electrolytes replacement per protocol. Continue Lasix reduce to 20mg Q12. Diuresis to dry weight GI: Elevated AST and alkaline phosphatase - improving. Hypoalbuminemia Acute protein calorie malnutrition - moderate On tube feeds-Glucerna 1.5 with goal rate 55ml/hr Famotidine 20 mg twice daily GI prophylaxis Docusate sodium/senna 1 tablet twice daily for bowel regimen Having bowel movements. Speech following ID: MRSA Bacteremia MRSA pneumonia Worsening sepsis leukocytosis Shahnaz UTI Septic shock- resolved. ABX per ID: Continue IV Vanc, Zyvox and DCd Cefepime. Diflucan per ID today DC p.o. Flagyl, repeat C. difficile neg Panculture follow up ceftaroline Dcd 12/27/17. Cubicin DCd 12/26 by ID JEANINE revealed no signs of endocarditis 12/20 12/15 BC from [place]- MRSA 12/16 Bronch BAL- MRSA [facility] 12/16, 12/17 12/18: MRSA Blood culture 12/19 no growth 12/20 sputum/12/21 BAL MRSA influenza, pneumococcal and Legionella antigens- Negative Heme: Leukocytosis Normocytic anemia Monitor CBC. 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 Sliding scale insulin Accu-Cheks every 6 hours to maintain euglycemia/medium regimen and Levemir insulin 8 units subcu twice daily Increase Levemir to 12 units every 12 01/02. IV steroid dose had been decreased Low free T3 and T4 on levothyroxine 25 mcg daily with low T4. 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 Its more appropriate to work up when she is over the critical illness Prophylaxis: GI Prophylaxis Famotidine IV DVT Prophylaxis -- SCDs -heparin SQ Antoine Oliva MD Jan 03, 2018 20:34
[2018-01-03] MEDS: cloNIDine HCL 0.1 MG TAB PO SCH (23:12)
[2018-01-03] MEDS: VANCOMYCIN INJ 1,250 MG in SODIUM CHLOR 0.9% 250 ML INJ 250 ML IV SCH (23:12)
[2018-01-04] VITALS (19 sets, daily range): BP systolic 96–120; BP diastolic 52–60; PULSE 86–116; RESP 16–20; TEMP 98.3–99.2; O2SAT 93–97
[2018-01-04 03:40] LABS: HEMATOCRIT 38.5 % (35.0-46.0); HEMOGLOBIN 12.8 GM/DL (11.6-15.3); MEAN CELL VOLUME 88.4 FL (80.0-100.0); MEAN CORPUSCULAR HEMOGLOBIN 29.3 PG (27.0-34.0); MEAN CORPUSCULAR HGB CONC 33.2 % (32.0-36.0); MEAN PLATELET VOLUME 9.1 FL (7.0-11.0); PLATELET COUNT 562 TH/MM3 (150-450); RED BLOOD COUNT 4.35 MIL/MM3 (4.00-5.30); RED CELL DISTRIBUTION WIDTH 14.1 % (11.6-17.2); WHITE BLOOD COUNT 33.1 TH/MM3 (4.0-11.0)
[2018-01-04 03:44] LABS: BICARBONATE 27.2 MEQ/L (21.0-32.0); CALCIUM 9.1 MG/DL (8.5-10.1); CREATININE 0.68 MG/DL (0.50-1.00)
[2018-01-04] MEDS: HEPARIN SODIUM - SQ 10,000 UNITS/ML VIAL SQ SCH ×3 (04:24→20:25)
[2018-01-04] MEDS: LINEZOLID 600 MG PREMIX 300 ML IV SCH ×2 (04:24→15:19)
[2018-01-04] MEDS: CHLORHEXIDINE GLUCONATE 2 % 1 PACK (2 CLOTHS) TOP SCH (04:24)
[2018-01-04] MEDS: cloNIDine HCL 0.1 MG TAB PO SCH ×3 (06:18→22:26)
[2018-01-04] MEDS: LEVOTHYROXINE SODIUM 25 MCG TAB PO SCH (06:18)
[2018-01-04] MEDS: METOCLOPRAMIDE HCL 10 MG/2 ML VIAL IV PUSH SCH ×3 (06:18→22:26)
[2018-01-04] MEDS: INSULIN NovoLIN REGULAR SUPPLEMENTAL SCALE SQ SCH ×3 (06:18→18:12)
[2018-01-04] MEDS: RESP: BUDESONIDE 0.5 MG/2 ML NEB NEB SCH ×2 (07:51→19:54)
[2018-01-04] MEDS: VANCOMYCIN INJ 1,250 MG in SODIUM CHLOR 0.9% 250 ML INJ 250 ML IV SCH ×2 (08:39→22:21)
[2018-01-04] MEDS: ASPIRIN 81 MG CHEW TAB CHEW SCH (08:40)
[2018-01-04] MEDS: FAMOTIDINE 20 MG TAB PO SCH ×2 (08:40→20:25)
[2018-01-04] MEDS: FUROSEMIDE 40 MG/4 ML VIAL IV PUSH SCH ×2 (08:40→18:04)
[2018-01-04] MEDS: MUPIROCIN 2% OINT 1 APPLIC/GM SYR EACH NARE SCH ×2 (08:42→20:25)
[2018-01-04] MEDS: SODIUM CHLORIDE 0.9% FLUSH 10 ML FLUSH IV FLUSH SCH ×3 (08:42→20:26)
[2018-01-04] MEDS: CHLORHEXIDINE 0.12% (ORAL KIT) 15 ML CUP MT SCH ×2 (08:42→20:25)
[2018-01-04] MEDS: ARTIFICIAL TEARS OPTH OINT 3.5 APPLIC/3.5 GM TUBO EACH EYE SCH ×2 (08:42→20:25)
[2018-01-04] MEDS: INSULIN DETEMIR 100 UNITS/ML VIAL SQ SCH ×2 (08:43→20:26)
--- NOTE | 2018-01-04 10:47 | HHI.IDPN ---
Subjective Subjective Remarks Patient is a 47-year-old female, who initially presented to [facility] ED complaining of 4 day history of chest pain and shortness of breath. In have any other history. She was apparently coughing and was bringing up some brownish phlegm. There was no mention of any fever or chills. No nausea or vomiting. No urinary complaints. Chest x-ray showed bilateral patchy basilar infiltrates. CTA did not show any pulmonary embolism, showed bilateral infiltrates with some cavitary lesions noted. She was transferred to the main hospital, and she apparently had some blood in the sputum. She ended up getting intubated. [facility] did bronchoscopy on her. Patient currently sedated postintubation. Her blood pressure is okay and she is not hypotensive. She is tachycardic. Infectious disease consultation has been requested to evaluate the patient with pneumonia Notes reviewed D/W RN Temps ok BP ok Tolerating weaning, on CPAP currently; has done T-piece trials Awake, not SOB, no abdominal pain S/P trach 12/30 WBC remains elevated Last CXR better Having diarrhea, C diff negative x 2 Tolerating TF Antibiotics vanco IV zyvox Diflucan Current Medications Medications (Trade) Dose Ordered Sig/Marily Route Start Time Stop Time Status Last Admin (NS Flush) 2 ml UNSCH PRN IV FLUSH 12/15/17 22:30 (NS Flush) 2 ml BID IV FLUSH 12/16/17 09:00 01/04/18 08:42 (Robitussin Dm 200-20 Mg/10 ml Liq) 10 ml Q4H PRN PO 12/15/17 22:30 Future Hold (Heparin Inj) 5,000 units Q8H SQ 12/16/17 12:00 01/04/18 04:24 (Morphine Inj) 1 mg Q4H PRN IM 12/16/17 09:15 Future Hold 12/16/17 10:11 (Mucinex Er) 600 mg BID PO 12/16/17 09:15 Future Hold 12/16/17 10:51 Fentanyl Citrate 250 ml @ 5 mls/hr TITRATE PRN IV 12/16/17 16:30 01/03/18 19:53 Miscellaneous Information 1 Q361D XX 12/16/17 16:45 (Chlorhexidine 2% Cloth) Taper DAILY@04 TOP 12/17/17 04:00 12/13/18 03:59 01/04/18 04:24 (Chlorhexidine 2% Cloth) 3 pack UNSCH PRN TOP 12/16/17 16:45 (Milk Of Magnesia Liq) 30 ml Q12H PRN PO 12/16/17 16:45 (Senokot) 17.2 mg Q12H PRN PO 12/16/17 16:45 12/28/17 08:39 (Dulcolax Supp) 10 mg DAILY PRN RECTAL 12/16/17 16:45 (Lactulose Liq) 30 ml DAILY PRN PO 12/16/17 16:45 (Peridex 0.12% Liq) 15 ml BID@08,20 MT 12/16/17 20:00 01/04/18 08:42 Potassium Chloride 100 ml @ 50 mls/hr Q2H PRN IV 12/17/17 07:45 12/31/17 09:33 Potassium Chloride 100 ml @ 50 mls/hr Q2H PRN IV 12/17/17 07:45 (K-Lyte Cl Eff) 50 meq UNSCH PRN PO 12/17/17 07:45 Potassium Chloride 100 ml @ 25 mls/hr UNSCH PRN IV 12/17/17 07:45 01/01/18 07:03 Potassium Chloride 100 ml @ 50 mls/hr Q2H PRN IV 12/17/17 07:45 Magnesium Sulfate 4 gm/Sodium Chloride 100 ml @ 50 mls/hr UNSCH PRN IV 12/17/17 07:45 (Mag-Ox) 800 mg UNSCH PRN PO 12/17/17 07:45 Magnesium Sulfate 2 gm/Sodium Chloride 100 ml @ 50 mls/hr UNSCH PRN IV 12/17/17 07:45 (K-Phos) 2,000 mg Q4H PRN PO 12/17/17 07:45 12/17/17 23:49 Sodium Phosphate 30 mmol/Sodium Chloride 250 ml @ 42 mls/hr UNSCH PRN IV 12/17/17 07:45 12/18/17 08:40 (K-Phos) 2,000 mg UNSCH PRN PO/TUBE 12/17/17 07:45 Potassium Phosphate 30 mmol/ Sodium Chloride 260 ml @ 42 mls/hr UNSCH PRN IV 12/17/17 07:45 12/19/17 07:57 (Albuterol Neb) 2.5 mg Q2HR NEB PRN NEB 12/21/17 08:30 01/01/18 20:21 (Pulmicort Respule Neb) 0.5 mg Q12HR NEB NEB 12/21/17 20:00 01/04/18 07:51 (NS Flush) DAILY IV FLUSH 12/22/17 09:00 01/04/18 08:42 (NS Flush) UNSCH PRN IV FLUSH 12/21/17 09:15 12/28/17 21:22 (Bactroban Nasal 2% Oint) Taper BID EACH NARE 12/21/17 21:00 12/17/18 20:59 01/02/18 21:31 (Lacrilube Opht Oint) 1 applic Q12HR EACH EYE 12/21/17 10:00 01/03/18 08:37 (D50w (Vial) Inj) 50 ml UNSCH PRN IV PUSH 12/21/17 09:15 (Glucagon Inj) 1 mg UNSCH PRN OTHER 12/21/17 09:15 (NovoLIN R SUPPLEMENTAL SCALE) 1 Q6HR SQ 12/21/17 12:00 01/04/18 06:18 (Tylenol 650 Mg/ 20 ml Liq) 650 mg Q6H PRN NG 12/21/17 09:30 01/02/18 08:21 (Pill Splitter) 1 ea UNSCH PRN OTHER 12/21/17 21:00 (Aspirin Chew) 81 mg DAILY CHEW 12/22/17 09:00 01/04/18 08:40 (Cathflo Activase Inj) 2 mg Q2H PRN INTRACATH 12/22/17 14:15 12/22/17 14:37 (Synthroid) 25 mcg DAILY@0600 PO 12/23/17 06:00 01/04/18 06:18 (Reglan Inj) 5 mg Q8H PRN IV PUSH 12/24/17 17:45 12/27/17 01:50 Pharmacy Profile Note 0 ml @ 0 mls/hr UNSCH OTHER 12/26/17 14:15 (Brethine Inj) 1 mg UNSCH PRN SQ 12/27/17 08:15 Linezolid 300 ml @ 300 mls/hr Q12H IV 12/27/17 15:00 01/04/18 04:24 (Reglan Inj) 5 mg Q8H IV PUSH 12/28/17 15:00 01/04/18 06:18 (Xanax) 0.5 mg Q8H PRN PO 12/30/17 11:00 01/02/18 21:30 (Pepcid) 20 mg BID PO 01/01/18 21:00 01/04/18 08:40 (Diflucan) 100 mg Q24H PO 01/01/18 11:00 01/08/18 10:59 01/03/18 10:42 (SoluMEDROL INJ) 20 mg Q12H IV PUSH 01/02/18 22:00 01/03/18 23:12 (Levemir Inj) 12 units Q12HR SQ 01/02/18 21:00 01/04/18 08:43 (Lasix Inj) 20 mg BID@09,18 IV PUSH 01/02/18 18:00 01/04/18 08:40 Vancomycin HCl 1250 mg/Sodium Chloride 262.5 ml @ 250 mls/hr Q12H IV 01/03/18 22:00 01/04/18 08:39 Miscellaneous Information SPECIFIC LAB TO BE DRAWN:VANCOMYCIN TROUGH DATE TO... ONCE ONCE .XX 01/05/18 09:45 01/05/18 09:46 (Catapres) 0.1 mg Q8HR PO 01/03/18 22:00 01/04/18 06:18 Lines PIV Past Medical History Anxiety Past Surgical History Cholecystectomy Hysterectomy Allergies: Coded Allergies: No Known Allergies (Unverified , 12/15/17) Objective . Vital Signs Date Time Temp Pulse Resp B/P (MAP) Pulse Ox O2 Delivery O2 Flow Rate FiO2 01/04/18 08:00 98.3 102 17 115/55 (75) 96 01/04/18 07:51 97 40 01/04/18 07:51 40 01/04/18 06:00 89 01/04/18 04:43 96 40 01/04/18 04:00 40 01/04/18 04:00 99.0 101 17 120/60 (80) 96 01/04/18 04:00 101 01/04/18 00:07 97 40 01/04/18 00:00 86 01/04/18 00:00 98.3 86 16 108/56 (73) 96 01/04/18 00:00 40 01/03/18 22:00 117 01/03/18 20:00 125 01/03/18 20:00 98.7 125 17 123/63 (83) 94 01/03/18 20:00 40 01/03/18 19:30 95 40 01/03/18 18:00 119 01/03/18 16:00 99.3 121 23 123/58 (79) 96 01/03/18 16:00 121 01/03/18 16:00 40 01/03/18 15:36 96 40 01/03/18 14:00 138 01/03/18 12:00 99.0 116 20 120/56 (77) 90 01/03/18 12:00 116 01/03/18 11:45 93 T-piece 5.00 50 . Laboratory Tests Test 01/03/18 05:15 01/04/18 02:55 White Blood Count 33.5 TH/MM3 33.1 TH/MM3 Red Blood Count 4.34 MIL/MM3 4.35 MIL/MM3 Hemoglobin 13.0 GM/DL 12.8 GM/DL Hematocrit 38.8 % 38.5 % Mean Corpuscular Volume 89.4 FL 88.4 FL Mean Corpuscular Hemoglobin 30.0 PG 29.3 PG Mean Corpuscular Hemoglobin Concent 33.6 % 33.2 % Red Cell Distribution Width 13.8 % 14.1 % Platelet Count 489 TH/MM3 562 TH/MM3 Mean Platelet Volume 9.3 FL 9.1 FL Laboratory Tests Test 01/03/18 05:15 01/04/18 02:55 Blood Urea Nitrogen 37 MG/DL 39 MG/DL Creatinine 0.77 MG/DL 0.68 MG/DL Random Glucose 260 MG/DL 235 MG/DL Calcium Level 9.3 MG/DL 9.1 MG/DL Sodium Level 135 MEQ/L 135 MEQ/L Potassium Level 5.6 MEQ/L 4.8 MEQ/L Chloride Level 101 MEQ/L 99 MEQ/L Carbon Dioxide Level 24.7 MEQ/L 27.2 MEQ/L Anion Gap 9 MEQ/L 9 MEQ/L Estimat Glomerular Filtration Rate 81 ML/MIN 93 ML/MIN Microbiology Date/Time Source Procedure Growth Status 01/01/18 15:53 Blood Peripheral Aerobic Blood Culture - Preliminary NO GROWTH IN 2 DAYS Resulted 3/27/18 15:53 Blood Peripheral Anaerobic Blood Culture - Preliminary NO GROWTH IN 2 DAYS Resulted 01/01/18 15:48 Blood Peripheral Aerobic Blood Culture - Preliminary NO GROWTH IN 2 DAYS Resulted 01/01/18 15:48 Blood Peripheral Anaerobic Blood Culture - Preliminary NO GROWTH IN 2 DAYS Resulted 01/01/18 16:30 Sputum Endotracheal Gram Stain - Final Resulted 01/01/18 16:30 Sputum Culture - Preliminary Aspergillus Species Resulted 01/01/18 14:30 Urine Catheterized Urine Urine Culture - Final NO GROWTH IN 48 HOURS. Complete Imaging Chest X-Ray 01/02/18599 Signed Impressions: Service Date/Time: Tuesday, January 02, 2018 03:45 - CONCLUSION: 1. Residual patchy densities right upper lobe and left lower lobe. Miguel Lynne MD Chest X-Ray 01/01/18599 Signed Impressions: Service Date/Time: Monday, January 01, 2018 02:48 - CONCLUSION: Improved aeration of the right lung with minimal bibasilar densities. Miguel Lynne MD Chest X-Ray 12/28/17599 Signed Impressions: Service Date/Time: Thursday, December 28, 2017 09:28 - CONCLUSION: Unchanged right upper lobe infiltrate. Yomi Shipley Jr., MD CT Angiography 12/16/17 0000 Signed Impressions: Service Date/Time: Saturday, December 16, 2017 13:49 - CONCLUSION: 1. Negative for pulmonary emboli. 2. Dense consolidation in the lungs especially the lung bases with several cavitary lesions as above. Findings are most characteristic of pneumonia. Cannot exclude septic embolic disease. No significant effusion. Malachi Hardin MD Physical Exam GENERAL: Awake and following commands, NAD. On CPAP SKIN: Warm and dry. No rash EYES: non icteric ENT: moist mucosae, no thrush NECK: Tracheostomy site ok CARDIOVASCULAR: Tachycardic, regular rhythm on monitor; no murmurs, rubs gallops RESPIRATORY: Coarse BS dominga. Decreased at bases ABDOMEN: soft , not tender, not distended BS+ EXTREMITIES: Improving edema : clear yellow urine NEUROLOGICAL: Awake, responding PSYCHIATRIC: Awake, and cooperative LINE: No evidence of infection Assessment & Plan Remarks IMPRESSION Sepsis present, high grade, on admission, has MRSA on blood cultures - S/P arrest - last (+) BC 12/18 Bilateral pneumonia, some with cavitation - C/S with MRSA - CXR improving Very worrisome for endocarditis - clinically , but JEANINE negative Respiratory failure. worsening infiltrates, PNA - S/P trach - CXR improving Leukocytosis, persistent, up again Diarrhea, C diff negative x 2 RECOMMENDATION Continue zyvox Continue IV Vanco Continue Diflucan - to finish 01/[address] A/P to look for other sources for leukocytosis, ?septic emboli Consider CT head as well to evaluate LUE weakness, though that is a little better Monitor progress Weaning per CCM D/W Liliam Ritchie MD Jan 04, 2018 10:47
[2018-01-04] MEDS ORDERED: DIATRIZOATE MEGLUM/DIATRIZOATE SOD 9 ML CUP PO ONE (11:45)
[2018-01-04] MEDS: methylPREDNISolone SOD SUCC 40 MG/1 ML VIAL IV PUSH SCH ×2 (12:46→22:26)
[2018-01-04] MEDS: FLUCONAZOLE 100 MG TAB PO SCH (12:46)
--- NOTE | 2018-01-04 18:00 | HHI.CCPN ---
Subjective Remarks/Hospital Course This is a 47-year-old female with a history of anxiety disorder, that presented to [place] on with complaints of chest pain and dyspnea that has been lasting for the past 4 days. The patient was transferred to [facility]. Imaging and laboratory studies were initially performed which showed a chest x-ray with bilateral patchy airspace consolidation consistent with bronchial pneumonia, and her lactic acid level was noted to be 3.1. The patient's oxygen requirements continue to increase the patient became tachypneic with a respiratory rate in the 40s and tachycardic, heart rate in the 120s. Pulmonology was consulted, CT was performed which revealed no pulmonary emboli , will several cavitary lesions, dense consolidation at both lung bases, air bronchograms and extensive pneumomediastinum extending into the lower neck and upper chest .ICU was requested to see patient. Upon observation the patient was severely dyspneic, with significant accessory muscle movement, violently coughing hemoptysis. Decision made to intubate patient for airway protection. 12/17 Patient is sedated with Diprivan and versed infusion. afebrile. s/p bronch yesterday by Dr. Klein. 12/18 Patient remains sedated with Versed 10mg/hr and Fentanyl 250 mics. Tmax 102.1 yesterday. + MRSA in bronch and GPC/MRSA from [facility] 12/15 from [place] 12/19: Patient developed respiratory distress and SVT this am with vent dyssynchrony with air trapping and elevated peak pressure. FiO2 increased to 100%, started on Nimbex infusion. Intermittently tachycardic, occasional bradycardia also. EKG shows sinus rhythm. Patient is very critical now. Will consult cardiology for JEANINE, and also regarding SVT. Chest x-ray shows worsening bilateral infiltrates concerning for ARDS 12/20: Remains intubated heavily sedated and neuromuscularly paralyzed to maintain ventilator synchrony and control peak pressures. Chest x-ray shows persistent bilateral infiltrates. JEANINE planned for today. All cultures so far positive for MRSA. Tachy Arrhythmia is better controlled after starting sotalol 12/21: CODE BLUE overnight when patient became bradycardic. Received epinephrine with chest compressions with return of spontaneous relief within 5 minutes according to RN. Currently on peripheral dopamine at 10 mcg/kg/min. FiO2 currently at 100%. Chest x-ray revealed worsening diffuse bilateral pulmonary infiltrates 12/22: T-max 101.1 Fahrenheit. Currently 98.9 Fahrenheit. +2493 cc past 24 hours. No bowel movement. Currently on roto-prone bed on epoprostenol at 50, 000 ng/kg/min aerosolized. On tube feeds Glucerna 1.5 at 20 cc an hour. 12/23: Overnight, when switching from supine to prone position patient 32nd episode of asystole resolved without chest compressions. We are currently patient has been prone position again with very slow with and without. Tolerating tube feeds now. Remains on cisatracurium drip at 4 mcg/min 12/24 Patient remains sedated and intubated. On Diprivan, Fentanyl, Versed in addition to Nimbex and Dopamine @5mics. Afebrile. 12/25 No events overnight. Remains sedated, intubated and on Rotoprone bed. On Dopamine 5 mics and Nimbex. T:99.7 12/26: Remains critically ill remains on prone ventilation. I will change on time/supine time to prospectively 5 hours/1 hour cycles. Increase PEEP to 10 to facilitate prolonged weaning. CXR shows persistent consolidation RUL 12/27: Remains critical but oxygenation stable. Off dopamine but hypotensive now with map of 58. Start on Levophed to keep map above 65. Change prone/ supine cycles to 4 hours each. Discontinue prone therapy in the next 24 hours if stable. WBC count is slightly improved 12/28: Transitioned from a prone bed to Roto-Rest today, tolerated well. Remains on Flolan will start weaning today per protocol. Urine output is excellent with Lasix. Remains on Levophed to maintain map above 65. Discontinue Nimbex today 12/29: hypoxia continues to improve. wbc uptrending, although remains afebrile. cultures NGTD. good diuresis. developing metabolic alkalosis most likely from contraction. 12/30: continues to diurese well. off rota-rest bed. on my evaluation today, however, awake and alert, follows commands. cannot lift hands off bed or head off bed at all. severely weak, most likely from critical illness polymyopathy ( prolonged neuromuscular blockade and steroid use). unable to successfully pass SBT. intubation and mechanical ventilation for > 2 weeks. will require tracheostomy to progress care further. 12/31: Status post trach yesterday. Tolerating SBT. Continues to have significant neuromuscular weakness. Attempt 2-4hour T piece today 01/01: Patient more critical today, WBC increased to 29.8. Diarrhea +. Tachycardic, Did not tolerate Tp today. Placed back on vent. ID has started Diflucan. Check repeat C Diff. 01/02: Tolerated 1 hour of T piece today, currently on CPAP. Muscle strength improving 4 out of 5 on exam today. WBC 27.7 today, slightly improved. Urine output excellent. C. difficile negative 2. Tachycardia persist Subjective 01/03: tachycardia somewhat improved. wbc still uptrending. sputum growing mold species, speciation and sensitivities to follow. did tolerate more t-piece time than yesterday. 01/04: wbc still elevated. sputum growing aspergillus. pt doing well on t-piece trials and lasting longer. still very weak and unable to lift hands off bed. patient denies complaints. just on low-dose fentanyl. Objective Vital Signs Date Time Temp Pulse Resp B/P (MAP) Pulse Ox O2 Delivery O2 Flow Rate FiO2 01/04/18 12:17 93 T-piece 5.00 50 01/04/18 12:00 98.3 95 18 108/56 (73) Intake and Output 01/04/18 01/04/18 01/04/18 07:59 15:59 23:59 Intake Total 2032.5 ml Output Total 625 ml Balance 1407.5 ml Result Diagram: 01/04/18 0255 01/04/18 0255 Imaging Last Impressions Chest X-Ray 12/24/17 0600 Signed Impressions: Service Date/Time: Sunday, December 24, 2017 04:53 - CONCLUSION: Persistent dense consolidation right upper lobe and a new small area of consolidation in the left lower lobe. Yomi Lopez MD CT Angiography 12/16/17 0000 Signed Impressions: Service Date/Time: Saturday, December 16, 2017 13:49 - CONCLUSION: 1. Negative for pulmonary emboli. 2. Dense consolidation in the lungs especially the lung bases with several cavitary lesions as above. Findings are most characteristic of pneumonia. Cannot exclude septic embolic disease. No significant effusion. Malachi Hardin MD Objective Remarks GENERAL: 47-year-old female lying in bed. On t-piece SKIN: Warm and dry. HEAD: Normocephalic. EYES: No scleral icterus. No injection or drainage. ENT: Oral cavity is moist NECK: Supple, trachea midline. New trach in place without significant bleeding CARDIOVASCULAR: Currently in sinus tachycardia. No murmurs RESPIRATORY: Anterior lung [place] equal breath bilaterally. Bilateral coarse rhonchi and wheezes. GASTROINTESTINAL: Abdomen soft, non-tender, nondistended. MUSCULOSKELETAL: No significant peripheral edema NEURO: Alert awake. follows commands. globally weak, functional quadriparesis. Muscle power slightly improved 4 out of 5, in all extremities A/P Problem List: (1) Acute hypoxemic respiratory failure ICD Code: J96.01 - Acute respiratory failure with hypoxia (2) Septic shock due to methicillin resistant Staphylococcus aureus ICD Code: A41.02 - Sepsis due to Methicillin resistant Staphylococcus aureus; R65.21 - Severe sepsis with septic shock (3) Sepsis due to methicillin resistant Staphylococcus aureus (MRSA) ICD Code: A41.02 - Sepsis due to Methicillin resistant Staphylococcus aureus (4) ARDS (adult respiratory distress syndrome) ICD Code: J80 - Acute respiratory distress syndrome (5) Cavitating pneumonia (6) 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 s/p tracheostomy. continue slow vent wean. 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 Up to chair daily Acetaminophen 650 mg liquid by tube every 6 hours as needed fever Respiratory: Acute hypoxemic respiratory failure status post tracheostomy Severe ARDS-improving Small right Pneumothorax Pneumomediastinum Hemoptysis by history Pulmonary cavitary lesions CPAP daily TP 1 hour today, increase TP time daily, s/p prone ventilation. s/p trach 12/30/17 Ventilator bundle. Albuterol/ipratropium aerosols every 4 hours with albuterol aerosols every 2 hours as needed dyspnea Budesonide 0.5/2 1 inhalation twice daily Methylprednisolone succinate 40 mg IV every 8 hours-reduced to 20 q8 s/p flolan 12/16 -CT Angio - extensive pneumomediastinum extending into neck and upper chest. Dense consolidation at both lung bases, air bronchograms , 2 cavitary lesions 12/16-bronchoscopy performed by Dr. Klein, no active sites noted for bleeding, moderate purulent mucus bilaterally noted 2 BAL samples sent CTS has followed for Pneumomediastinum-per Dr. Guadarrama no intervention at this time. Dr. Mireles pulmonology following Cardiovascular: Septic shock- resolved. Bradycardic arrest- resolved. Paroxysmal atrial fibrillation- resolved, no in NSR SVT- resolved. Probable infective endocarditis Elevated troponin- resolved. off vasopressors. On sotalol 40 mg twice daily by Dr. Bray 12/19 Tachycardic, will not add AV kareem blockers secondary to bradycardic arrest Monitor HR and BP keep MAP>65mmHg Transesophageal echocardiogram 12/20 revealed no signs of endocarditis. Preserved LV function. Trace MR/TR Echo 12/17 showed EF 60-65%. Echo 12/21 EF 50%. Cannot rule out regional wall motion and ability Troponin 1.26 from 3.4 and downward trending Aspirin 81 mg p.o. daily FEN/Renal: Hypernatremia- resolved. Acute intravascular volume overload- persistent. Monitor renal function Electrolytes replacement per protocol. Continue Lasix reduce to 20mg Q12. Diuresis to dry weight GI: Elevated AST and alkaline phosphatase - improving. Hypoalbuminemia Acute protein calorie malnutrition - moderate On tube feeds-Glucerna 1.5 with goal rate 55ml/hr Famotidine 20 mg twice daily GI prophylaxis Docusate sodium/senna 1 tablet twice daily for bowel regimen Having bowel movements. Speech following ID: MRSA Bacteremia MRSA pneumonia Worsening sepsis leukocytosis Shahnaz UTI Septic shock- resolved. ABX per ID: Continue IV Vanc, Zyvox and DCd Cefepime. Diflucan per ID today DC p.o. Flagyl, repeat C. difficile neg Panculture follow up ceftaroline Dcd 12/27/17. Cubicin DCd 12/26 by ID JEANINE revealed no signs of endocarditis 12/20 12/15 [facility] from [place]- MRSA 12/16 Bronch BAL- MRSA [facility] 12/16, 12/17 12/18: MRSA Blood culture 12/19 no growth 12/20 sputum/12/21 BAL MRSA influenza, pneumococcal and Legionella antigens- Negative Heme: Leukocytosis Normocytic anemia Monitor CBC. 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 Sliding scale insulin Accu-Cheks every 6 hours to maintain euglycemia/medium regimen and Levemir insulin 8 units subcu twice daily Increase Levemir to 12 units every 12 01/02. IV steroid dose had been decreased Low free T3 and T4 on levothyroxine 25 mcg daily with low T4. 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 Its more appropriate to work up when she is over the critical illness Prophylaxis: GI Prophylaxis Famotidine IV DVT Prophylaxis -- SCDs -heparin SQ Antoine Oliva MD Jan 04, 2018 18:00
--- NOTE | 2018-01-04 19:30 | HHI.PR ---
Subjective Remarks on the ventilator alert no distress Objective Vital Signs Date Time Temp Pulse Resp B/P (MAP) Pulse Ox O2 Delivery O2 Flow Rate FiO2 01/04/18 18:00 105 01/04/18 16:00 92 01/04/18 16:00 99.2 92 18 107/52 (70) 93 01/04/18 14:00 105 01/04/18 12:17 93 T-piece 5.00 50 01/04/18 12:00 95 01/04/18 12:00 98.3 95 18 108/56 (73) 96 01/04/18 12:00 40 01/04/18 10:00 110 01/04/18 08:00 40 01/04/18 08:00 98.3 102 17 115/55 (75) 96 01/04/18 08:00 102 01/04/18 07:51 97 40 01/04/18 07:51 40 01/04/18 06:00 89 01/04/18 04:43 96 40 01/04/18 04:00 40 01/04/18 04:00 99.0 101 17 120/60 (80) 96 01/04/18 04:00 101 01/04/18 00:07 97 40 01/04/18 00:00 86 01/04/18 00:00 98.3 86 16 108/56 (73) 96 01/04/18 00:00 40 01/03/18 22:00 117 01/03/18 20:00 125 01/03/18 20:00 98.7 125 17 123/63 (83) 94 01/03/18 20:00 40 I/O 01/03/18 01/03/18 01/03/18 01/04/18 01/04/18 01/04/18 07:00 15:00 23:00 07:00 15:00 23:00 Intake Total 750 ml 1101 ml 2032.5 ml 643 ml Output Total 1150 ml 1350 ml 625 ml 1150 ml Balance -400 ml -249 ml 1407.5 ml -507 ml IV Total 550 ml 1496.5 ml 643 ml Tube Feeding 630 ml 551 ml 536 ml Tube Irrigant 120 ml Output Urine Total 650 ml 1350 ml 625 ml 950 ml Stool Total 500 ml 200 ml # Bowel Movements 1 0 Result Diagram: 01/04/18 0255 01/04/18 0255 Procedures BiPAP Objective Remarks GENERAL: sedated on vent support SKIN: Warm and dry. HEAD: Atraumatic. Normocephalic. EYES: Pupils equal and round. No scleral icterus. No injection or drainage. ENT: No nasal bleeding or discharge. Mucous membranes pink and moist. NECK: Trachea midline. No JVD. CARDIOVASCULAR: Regular rate and rhythm. RESPIRATORY: No accessory muscle use. Clear to auscultation. Breath sounds equal bilaterally. GASTROINTESTINAL: Abdomen soft, non-tender, nondistended. Hepatic and splenic margins not palpable. MUSCULOSKELETAL: Extremities without clubbing, cyanosis, or edema. No obvious deformities. NEUROLOGICAL: Awake and alert. No obvious cranial nerve deficits. Motor grossly within normal limits. Five out of 5 muscle strength in the arms and legs. Normal speech. PSYCHIATRIC: Appropriate mood and affect; insight and judgment normal. Assessment and Plan Assessment and Plan imp: ALERT, TRACHEOSTOMY IN PLACE respiratory failure/ plan vent support pulm toilet wean as tolerated Ileana Tejeda MD Jan 04, 2018 19:30
[2018-01-04] MEDS: ALPRAZolam 0.5 MG TAB PO PRN (20:25)
[2018-01-05] VITALS (22 sets, daily range): BP systolic 94–126; BP diastolic 52–65; PULSE 76–134; RESP 16–23; TEMP 97.8–99; O2SAT 95–99
[2018-01-05] MEDS ORDERED: IOHEXOL 350 MG/ML 10 ML VIAL (for RAD DIAG) IVCONTRAST ONE (01:02)
--- NOTE | 2018-01-05 01:09 | RADRPT ---
EXAM DATE/TIME: 01/05/2018 00:57 [facility] COMPARISON: No previous studies available for comparison. INDICATIONS : Abdominal pain, evalaute for abscess. IV CONTRAST: 90 cc Omnipaque 350 (iohexol) IV ORAL CONTRAST: Prescribed oral contrast ingested. RADIATION DOSE: 6.00 CTDIvol (mGy) MEDICAL HISTORY : Hypertension. SURGICAL HISTORY : Cholecystectomy. Hysterectomy. ENCOUNTER: Subsequent ACUITY: 3 weeks PAIN SCALE: 4/10 LOCATION: Abdomen. TECHNIQUE: Volumetric scanning of the abdomen and pelvis was performed. Using automated exposure control and ad justment of the mA and/or kV according to patient size, radiation dose was kept as low as reasonably achievable to obtain optimal diagnostic quality images. DICOM format image data is available electro nically for review and comparison. FINDINGS: LOWER LUNGS: The visualized lower lungs are clear. Mild bronchiectasis both lung bases LIVER: Homogeneous density without lesion. There is no dilation of the biliary tree. Status post cholecyste ctomy SPLEEN: Normal size without lesion. PANCREAS: Within normal limits. KIDNEYS: Normal in size and shape. There is no mass, stone or hydronephrosis. There is mild asymmetry of the nephrograms with the left one being slightly of uncertain etiology ADRENAL GLANDS: Within normal limits. VASCULAR: There is no aortic aneurysm. BOWEL/MESENTERY: NG tube in the stomach . The stomach, small bowel, and colon demonstrate no acute abnormality. Ther e is no free intraperitoneal air or fluid. Rectal tube in place ABDOMINAL WALL: Within normal limits. RETROPERITONEUM: There is no lymphadenopathy. BLADDER: No wall thickening or mass. REPRODUCTIVE: Within normal limits. INGUINAL: There is no lymphadenopathy or hernia. MUSCULOSKELETAL: Within normal limits for patient age. CONCLUSION: Rectal tube in good position. Some asymmetry of the renal nephrograms the left one being slightly del ayed of uncertain etiology. Conceivably pyelonephritis would be within the differential on the left b ased on the patient's symptoms of leukocytosis. Ravinder Krause MD on January 05, 2018 at 1:05 Board Certified Radiologist. This report was verified electronically.
[2018-01-05] MEDS: LINEZOLID 600 MG PREMIX 300 ML IV SCH ×2 (02:26→14:14)
[2018-01-05 03:34] LABS: HEMOGLOBIN 12.8 GM/DL (11.6-15.3); MEAN CELL VOLUME 87.9 FL (80.0-100.0); MEAN CORPUSCULAR HEMOGLOBIN 29.8 PG (27.0-34.0); MEAN CORPUSCULAR HGB CONC 33.9 % (32.0-36.0); MEAN PLATELET VOLUME 8.5 FL (7.0-11.0); PLATELET COUNT 573 TH/MM3 (150-450); RED BLOOD COUNT 4.32 MIL/MM3 (4.00-5.30); RED CELL DISTRIBUTION WIDTH 13.5 % (11.6-17.2); WHITE BLOOD COUNT 26.7 TH/MM3 (4.0-11.0)
[2018-01-05 03:53] LABS: BICARBONATE 26.3 MEQ/L (21.0-32.0); CALCIUM 8.8 MG/DL (8.5-10.1); CREATININE 0.57 MG/DL (0.50-1.00)
[2018-01-05] MEDS: CHLORHEXIDINE GLUCONATE 2 % 1 PACK (2 CLOTHS) TOP SCH (04:00)
[2018-01-05] MEDS: cloNIDine HCL 0.1 MG TAB PO SCH ×3 (05:46→22:16)
[2018-01-05] MEDS: LEVOTHYROXINE SODIUM 25 MCG TAB PO SCH (05:46)
[2018-01-05] MEDS: HEPARIN SODIUM - SQ 10,000 UNITS/ML VIAL SQ SCH ×3 (05:46→20:19)
[2018-01-05] MEDS: INSULIN NovoLIN REGULAR SUPPLEMENTAL SCALE SQ SCH ×4 (05:46→17:28)
[2018-01-05] MEDS: METOCLOPRAMIDE HCL 10 MG/2 ML VIAL IV PUSH SCH ×3 (05:47→22:18)
[2018-01-05] MEDS: RESP: ALBUTEROL 2.5 MG/3 ML NEB (PRN) NEB (07:35)
[2018-01-05] MEDS: RESP: BUDESONIDE 0.5 MG/2 ML NEB NEB SCH ×2 (07:35→19:29)
[2018-01-05] MEDS: CHLORHEXIDINE 0.12% (ORAL KIT) 15 ML CUP MT SCH ×2 (08:00→20:18)
[2018-01-05] MEDS: ASPIRIN 81 MG CHEW TAB CHEW SCH (08:43)
[2018-01-05] MEDS: FUROSEMIDE 40 MG/4 ML VIAL IV PUSH SCH ×2 (08:44→17:27)
[2018-01-05] MEDS: FAMOTIDINE 20 MG TAB PO SCH ×2 (08:44→20:18)
[2018-01-05] MEDS: methylPREDNISolone SOD SUCC 40 MG/1 ML VIAL IV PUSH SCH ×2 (08:45→22:16)
[2018-01-05] MEDS: INSULIN DETEMIR 100 UNITS/ML VIAL SQ SCH ×2 (08:49→20:19)
[2018-01-05] MEDS: MUPIROCIN 2% OINT 1 APPLIC/GM SYR EACH NARE SCH ×2 (09:00→20:19)
[2018-01-05] MEDS: SODIUM CHLORIDE 0.9% FLUSH 10 ML FLUSH IV FLUSH SCH ×3 (09:00→22:15)
[2018-01-05] MEDS: ARTIFICIAL TEARS OPTH OINT 3.5 APPLIC/3.5 GM TUBO EACH EYE SCH ×2 (09:00→21:00)
[2018-01-05] MEDS ORDERED: PHARMACY ORDERED LAB ONE (09:45)
[2018-01-05] MEDS: FLUCONAZOLE 100 MG TAB PO SCH (12:31)
[2018-01-05] MEDS: VANCOMYCIN INJ 1,250 MG in SODIUM CHLOR 0.9% 250 ML INJ 250 ML IV SCH ×2 (12:39→22:15)
[2018-01-05] MEDS: ALPRAZolam 0.5 MG TAB PO PRN (12:48)
[2018-01-05] MEDS: fentaNYL DRIP 250 ML IV PRN (12:52)
--- NOTE | 2018-01-05 15:54 | HHI.CCPN ---
Subjective Remarks/Hospital Course This is a 47-year-old female with a history of anxiety disorder, that presented to [facility] on with complaints of chest pain and dyspnea that has been lasting for the past 4 days. The patient was transferred to [facility]. Imaging and laboratory studies were initially performed which showed a chest x-ray with bilateral patchy airspace consolidation consistent with bronchial pneumonia, and her lactic acid level was noted to be 3.1. The patient's oxygen requirements continue to increase the patient became tachypneic with a respiratory rate in the 40s and tachycardic, heart rate in the 120s. Pulmonology was consulted, CT was performed which revealed no pulmonary emboli , will several cavitary lesions, dense consolidation at both lung bases, air bronchograms and extensive pneumomediastinum extending into the lower neck and upper chest .ICU was requested to see patient. Upon observation the patient was severely dyspneic, with significant accessory muscle movement, violently coughing hemoptysis. Decision made to intubate patient for airway protection. 12/17 Patient is sedated with Diprivan and versed infusion. afebrile. s/p bronch yesterday by Dr. Klein. 12/18 Patient remains sedated with Versed 10mg/hr and Fentanyl 250 mics. Tmax 102.1 yesterday. + MRSA in bronch and GPC/MRSA from [facility] 12/15 from [facility] 12/19: Patient developed respiratory distress and SVT this am with vent dyssynchrony with air trapping and elevated peak pressure. FiO2 increased to 100%, started on Nimbex infusion. Intermittently tachycardic, occasional bradycardia also. EKG shows sinus rhythm. Patient is very critical now. Will consult cardiology for JEANINE, and also regarding SVT. Chest x-ray shows worsening bilateral infiltrates concerning for ARDS 12/20: Remains intubated heavily sedated and neuromuscularly paralyzed to maintain ventilator synchrony and control peak pressures. Chest x-ray shows persistent bilateral infiltrates. JEANINE planned for today. All cultures so far positive for MRSA. Tachy Arrhythmia is better controlled after starting sotalol 12/21: CODE BLUE overnight when patient became bradycardic. Received epinephrine with chest compressions with return of spontaneous relief within 5 minutes according to RN. Currently on peripheral dopamine at 10 mcg/kg/min. FiO2 currently at 100%. Chest x-ray revealed worsening diffuse bilateral pulmonary infiltrates 12/22: T-max 101.1 Fahrenheit. Currently 98.9 Fahrenheit. +2493 cc past 24 hours. No bowel movement. Currently on roto-prone bed on epoprostenol at 50, 000 ng/kg/min aerosolized. On tube feeds Glucerna 1.5 at 20 cc an hour. 12/23: Overnight, when switching from supine to prone position patient 32nd episode of asystole resolved without chest compressions. We are currently patient has been prone position again with very slow with and without. Tolerating tube feeds now. Remains on cisatracurium drip at 4 mcg/min 12/24 Patient remains sedated and intubated. On Diprivan, Fentanyl, Versed in addition to Nimbex and Dopamine @5mics. Afebrile. 12/25 No events overnight. Remains sedated, intubated and on Rotoprone bed. On Dopamine 5 mics and Nimbex. T:99.7 12/26: Remains critically ill remains on prone ventilation. I will change on time/supine time to prospectively 5 hours/1 hour cycles. Increase PEEP to 10 to facilitate prolonged weaning. CXR shows persistent consolidation RUL 12/27: Remains critical but oxygenation stable. Off dopamine but hypotensive now with map of 58. Start on Levophed to keep map above 65. Change prone/ supine cycles to 4 hours each. Discontinue prone therapy in the next 24 hours if stable. WBC count is slightly improved 12/28: Transitioned from a prone bed to Roto-Rest today, tolerated well. Remains on Flolan will start weaning today per protocol. Urine output is excellent with Lasix. Remains on Levophed to maintain map above 65. Discontinue Nimbex today 12/29: hypoxia continues to improve. wbc uptrending, although remains afebrile. cultures NGTD. good diuresis. developing metabolic alkalosis most likely from contraction. 12/30: continues to diurese well. off rota-rest bed. on my evaluation today, however, awake and alert, follows commands. cannot lift hands off bed or head off bed at all. severely weak, most likely from critical illness polymyopathy ( prolonged neuromuscular blockade and steroid use). unable to successfully pass SBT. intubation and mechanical ventilation for > 2 weeks. will require tracheostomy to progress care further. 12/31: Status post trach yesterday. Tolerating SBT. Continues to have significant neuromuscular weakness. Attempt 2-4hour T piece today 01/01: Patient more critical today, WBC increased to 29.8. Diarrhea +. Tachycardic, Did not tolerate Tp today. Placed back on vent. ID has started Diflucan. Check repeat C Diff. 01/02: Tolerated 1 hour of T piece today, currently on CPAP. Muscle strength improving 4 out of 5 on exam today. WBC 27.7 today, slightly improved. Urine output excellent. C. difficile negative 2. Tachycardia persist Subjective 01/03: tachycardia somewhat improved. wbc still uptrending. sputum growing mold species, speciation and sensitivities to follow. did tolerate more t-piece time than yesterday. 01/04: wbc still elevated. sputum growing aspergillus. pt doing well on t-piece trials and lasting longer. still very weak and unable to lift hands off bed. patient denies complaints. just on low-dose fentanyl. 01/05: wbc downtrending. continues to lengthen time with t-piece. OOB to stretcher chair. will need long-term acute care level rehab. ROS negative. Objective Vital Signs Date Time Temp Pulse Resp B/P (MAP) Pulse Ox O2 Delivery O2 Flow Rate FiO2 01/05/18 15:32 97 40 01/05/18 14:00 113 01/05/18 12:00 99.0 23 116/58 (77) 01/04/18 12:17 T-piece 5.00 Intake and Output 01/05/18 01/05/18 01/05/18 07:59 15:59 23:59 Intake Total 1973 ml Output Total 1600 ml Balance 373 ml Result Diagram: 01/05/18 0248 01/05/18 0248 Imaging Last Impressions Chest X-Ray 12/24/17 0600 Signed Impressions: Service Date/Time: Sunday, December 24, 2017 04:53 - CONCLUSION: Persistent dense consolidation right upper lobe and a new small area of consolidation in the left lower lobe. Yomi Lopez MD CT Angiography 12/16/17 0000 Signed Impressions: Service Date/Time: Saturday, December 16, 2017 13:49 - CONCLUSION: 1. Negative for pulmonary emboli. 2. Dense consolidation in the lungs especially the lung bases with several cavitary lesions as above. Findings are most characteristic of pneumonia. Cannot exclude septic embolic disease. No significant effusion. Malachi Hardin MD Objective Remarks GENERAL: 47-year-old female lying in bed. On t-piece SKIN: Warm and dry. HEAD: Normocephalic. EYES: No scleral icterus. No injection or drainage. ENT: Oral cavity is moist NECK: Supple, trachea midline. New trach in place without significant bleeding CARDIOVASCULAR: Currently in sinus tachycardia. No murmurs RESPIRATORY: Anterior lung [place] equal breath bilaterally. Bilateral coarse rhonchi and wheezes. GASTROINTESTINAL: Abdomen soft, non-tender, nondistended. MUSCULOSKELETAL: No significant peripheral edema NEURO: Alert awake. follows commands. globally weak, functional quadriparesis. Muscle power slightly improved 4 out of 5, in all extremities A/P Problem List: (1) Acute hypoxemic respiratory failure ICD Code: J96.01 - Acute respiratory failure with hypoxia (2) Septic shock due to methicillin resistant Staphylococcus aureus ICD Code: A41.02 - Sepsis due to Methicillin resistant Staphylococcus aureus; R65.21 - Severe sepsis with septic shock (3) Sepsis due to methicillin resistant Staphylococcus aureus (MRSA) ICD Code: A41.02 - Sepsis due to Methicillin resistant Staphylococcus aureus (4) ARDS (adult respiratory distress syndrome) ICD Code: J80 - Acute respiratory distress syndrome (5) Cavitating pneumonia (6) 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 s/p tracheostomy. continue slow vent wean. 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 Up to chair daily Acetaminophen 650 mg liquid by tube every 6 hours as needed fever Respiratory: Acute hypoxemic respiratory failure status post tracheostomy Severe ARDS-improving Small right Pneumothorax Pneumomediastinum Hemoptysis by history Pulmonary cavitary lesions CPAP daily TP 1 hour today, increase TP time daily, s/p prone ventilation. s/p trach 12/30/17 Ventilator bundle. Albuterol/ipratropium aerosols every 4 hours with albuterol aerosols every 2 hours as needed dyspnea Budesonide 0.5/2 1 inhalation twice daily Methylprednisolone succinate 40 mg IV every 8 hours-reduced to 20 q8 s/p flolan 12/16 -CT Angio - extensive pneumomediastinum extending into neck and upper chest. Dense consolidation at both lung bases, air bronchograms , 2 cavitary lesions 12/16-bronchoscopy performed by Dr. Klein, no active sites noted for bleeding, moderate purulent mucus bilaterally noted 2 BAL samples sent CTS has followed for Pneumomediastinum-per Dr. Guadarrama no intervention at this time. Dr. Mireles pulmonology following Cardiovascular: Septic shock- resolved. Bradycardic arrest- resolved. Paroxysmal atrial fibrillation- resolved, no in NSR SVT- resolved. Probable infective endocarditis Elevated troponin- resolved. off vasopressors. On sotalol 40 mg twice daily by Dr. Bray 12/19 Tachycardic, will not add AV kareem blockers secondary to bradycardic arrest Monitor HR and BP keep MAP>65mmHg Transesophageal echocardiogram 12/20 revealed no signs of endocarditis. Preserved LV function. Trace MR/TR Echo 12/17 showed EF 60-65%. Echo 12/21 EF 50%. Cannot rule out regional wall motion and ability Troponin 1.26 from 3.4 and downward trending Aspirin 81 mg p.o. daily FEN/Renal: Hypernatremia- resolved. Acute intravascular volume overload- persistent. Monitor renal function Electrolytes replacement per protocol. Continue Lasix reduce to 20mg Q12. Diuresis to dry weight GI: Elevated AST and alkaline phosphatase - improving. Hypoalbuminemia Acute protein calorie malnutrition - moderate On tube feeds-Glucerna 1.5 with goal rate 55ml/hr Famotidine 20 mg twice daily GI prophylaxis Docusate sodium/senna 1 tablet twice daily for bowel regimen Having bowel movements. Speech following ID: MRSA Bacteremia MRSA pneumonia Worsening sepsis leukocytosis Shahnaz UTI Septic shock- resolved. ABX per ID: Continue IV Vanc, Zyvox and DCd Cefepime. Diflucan per ID today DC p.o. Flagyl, repeat C. difficile neg Panculture follow up ceftaroline Dcd 12/27/17. Cubicin DCd 12/26 by ID JEANINE revealed no signs of endocarditis 12/20 12/15 BC from [facility]- MRSA 12/16 Bronch BAL- MRSA [facility] 12/16, 12/17 12/18: MRSA Blood culture 12/19 no growth 12/20 sputum/12/21 BAL MRSA influenza, pneumococcal and Legionella antigens- Negative Heme: Leukocytosis Normocytic anemia Monitor CBC. 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 Sliding scale insulin Accu-Cheks every 6 hours to maintain euglycemia/medium regimen and Levemir insulin 8 units subcu twice daily Increase Levemir to 12 units every 12 01/02. IV steroid dose had been decreased Low free T3 and T4 on levothyroxine 25 mcg daily with low T4. 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 Its more appropriate to work up when she is over the critical illness Prophylaxis: GI Prophylaxis Famotidine IV DVT Prophylaxis -- SCDs -heparin SQ Antoine Oliva MD Jan 05, 2018 15:54
--- NOTE | 2018-01-05 17:47 | HHI.PR ---
Subjective Remarks on the ventilator alert no distress Objective Vital Signs Date Time Temp Pulse Resp B/P (MAP) Pulse Ox O2 Delivery O2 Flow Rate FiO2 01/05/18 16:00 113 01/05/18 16:00 97.8 78 16 103/53 (70) 97 01/05/18 16:00 40 01/05/18 15:32 97 40 01/05/18 14:00 113 01/05/18 12:00 113 01/05/18 12:00 99.0 134 23 116/58 (77) 97 01/05/18 12:00 40 01/05/18 11:15 96 40 01/05/18 10:53 97 40 01/05/18 10:00 113 01/05/18 08:00 113 01/05/18 08:00 98.6 113 21 95/55 (68) 97 01/05/18 08:00 40 01/05/18 07:38 96 40 01/05/18 06:00 82 16 112/58 (76) 96 01/05/18 06:00 90 01/05/18 05:00 77 16 96/55 (69) 97 01/05/18 04:32 97 40 01/05/18 04:00 76 01/05/18 04:00 98.8 80 16 94/52 (66) 97 01/05/18 04:00 40 01/05/18 03:00 86 16 99/54 (69) 96 01/05/18 02:00 91 01/05/18 02:00 92 16 111/56 (74) 95 01/05/18 01:00 102 22 111/58 (75) 99 01/05/18 00:13 98 40 01/05/18 00:00 40 01/05/18 00:00 98 01/05/18 00:00 99.0 109 22 126/65 (85) 98 01/04/18 23:00 104 16 96/53 (67) 96 01/04/18 22:00 105 17 117/57 (77) 96 01/04/18 22:00 96 01/04/18 21:00 105 20 114/59 (77) 97 01/04/18 20:30 40 01/04/18 20:00 40 01/04/18 20:00 116 01/04/18 20:00 99.0 114 19 111/56 (74) 96 01/04/18 19:58 97 40 01/04/18 18:56 97 40 01/04/18 18:00 105 I/O 01/04/18 01/04/18 01/04/18 01/05/18 01/05/18 01/05/18 07:00 15:00 23:00 07:00 15:00 23:00 Intake Total 2032.5 ml 643 ml 1973 ml Output Total 625 ml 1150 ml 1600 ml Balance 1407.5 ml -507 ml 373 ml IV Total 1496.5 ml 643 ml 780 ml Tube Feeding 536 ml 993 ml Other 200 ml Output Urine Total 625 ml 950 ml 1000 ml Stool Total 200 ml 600 ml # Bowel Movements 0 Result Diagram: 01/05/18 0248 01/05/18 0248 Procedures BiPAP Objective Remarks GENERAL: sedated on vent support SKIN: Warm and dry. HEAD: Atraumatic. Normocephalic. EYES: Pupils equal and round. No scleral icterus. No injection or drainage. ENT: No nasal bleeding or discharge. Mucous membranes pink and moist. NECK: Trachea midline. No JVD. CARDIOVASCULAR: Regular rate and rhythm. RESPIRATORY: No accessory muscle use. Clear to auscultation. Breath sounds equal bilaterally. GASTROINTESTINAL: Abdomen soft, non-tender, nondistended. Hepatic and splenic margins not palpable. MUSCULOSKELETAL: Extremities without clubbing, cyanosis, or edema. No obvious deformities. NEUROLOGICAL: Awake and alert. No obvious cranial nerve deficits. Motor grossly within normal limits. Five out of 5 muscle strength in the arms and legs. Normal speech. PSYCHIATRIC: Appropriate mood and affect; insight and judgment normal. Assessment and Plan Assessment and Plan imp: ALERT, TRACHEOSTOMY IN PLACE respiratory failure/ plan pulm toilet wean as tolerated Ileana Tejeda MD Jan 05, 2018 17:47
[2018-01-06] VITALS (14 sets, daily range): BP systolic 95–116; BP diastolic 50–56; PULSE 74–97; RESP 12–17; TEMP 97.3–98.4; O2SAT 97–100
[2018-01-06] MEDS: INSULIN NovoLIN REGULAR SUPPLEMENTAL SCALE SQ SCH ×5 (01:01→22:56)
[2018-01-06] MEDS: fentaNYL DRIP 250 ML IV PRN ×3 (01:07→22:54)
[2018-01-06] MEDS: CHLORHEXIDINE GLUCONATE 2 % 1 PACK (2 CLOTHS) TOP SCH (04:00)
[2018-01-06] MEDS: LINEZOLID 600 MG PREMIX 300 ML IV SCH ×2 (04:27→14:41)
[2018-01-06] MEDS: HEPARIN SODIUM - SQ 10,000 UNITS/ML VIAL SQ SCH ×3 (04:27→22:55)
[2018-01-06] MEDS: ALPRAZolam 0.5 MG TAB PO PRN ×2 (04:27→11:31)
[2018-01-06] MEDS: cloNIDine HCL 0.1 MG TAB PO SCH ×3 (06:00→22:55)
[2018-01-06] MEDS: LEVOTHYROXINE SODIUM 25 MCG TAB PO SCH (06:23)
[2018-01-06] MEDS: METOCLOPRAMIDE HCL 10 MG/2 ML VIAL IV PUSH SCH ×3 (06:23→22:53)
[2018-01-06] MEDS: RESP: ALBUTEROL 2.5 MG/3 ML NEB (PRN) NEB (07:30)
[2018-01-06] MEDS: RESP: BUDESONIDE 0.5 MG/2 ML NEB NEB SCH ×2 (07:30→19:42)
[2018-01-06] MEDS: CHLORHEXIDINE 0.12% (ORAL KIT) 15 ML CUP MT SCH ×2 (08:00→20:00)
[2018-01-06] MEDS: VANCOMYCIN INJ 1,250 MG in SODIUM CHLOR 0.9% 250 ML INJ 250 ML IV SCH ×2 (08:31→22:00)
[2018-01-06] MEDS: methylPREDNISolone SOD SUCC 40 MG/1 ML VIAL IV PUSH SCH ×2 (08:31→22:53)
[2018-01-06] MEDS: INSULIN DETEMIR 100 UNITS/ML VIAL SQ SCH ×2 (08:32→22:55)
[2018-01-06] MEDS: FAMOTIDINE 20 MG TAB PO SCH ×2 (08:32→21:00)
[2018-01-06] MEDS: ASPIRIN 81 MG CHEW TAB CHEW SCH (08:32)
[2018-01-06] MEDS: FUROSEMIDE 40 MG/4 ML VIAL IV PUSH SCH ×2 (08:32→16:54)
[2018-01-06] MEDS: ARTIFICIAL TEARS OPTH OINT 3.5 APPLIC/3.5 GM TUBO EACH EYE SCH ×2 (09:00→21:00)
[2018-01-06] MEDS: SODIUM CHLORIDE 0.9% FLUSH 10 ML FLUSH IV FLUSH SCH ×3 (09:00→21:00)
[2018-01-06] MEDS: MUPIROCIN 2% OINT 1 APPLIC/GM SYR EACH NARE SCH ×2 (09:00→22:53)
--- NOTE | 2018-01-06 09:07 | HHI.IDPN ---
Subjective Subjective Remarks Patient is a 47-year-old female, who initially presented to [facility] ED complaining of 4 day history of chest pain and shortness of breath. In have any other history. She was apparently coughing and was bringing up some brownish phlegm. There was no mention of any fever or chills. No nausea or vomiting. No urinary complaints. Chest x-ray showed bilateral patchy basilar infiltrates. CTA did not show any pulmonary embolism, showed bilateral infiltrates with some cavitary lesions noted. She was transferred to the main hospital, and she apparently had some blood in the sputum. She ended up getting intubated. [facility] did bronchoscopy on her. Patient currently sedated postintubation. Her blood pressure is okay and she is not hypotensive. She is tachycardic. Infectious disease consultation has been requested to evaluate the patient with pneumonia Notes reviewed D/W RN Temps ok BP ok Doing CPAP trials Weaning difficulty due to her anxiety level Awake, not SOB, no abdominal pain S/P trach 12/30 WBC remains elevated, but decreasing Last CXR better Tolerating TF Antibiotics vanco IV zyvox Diflucan Current Medications Medications (Trade) Dose Ordered Sig/Marily Route Start Time Stop Time Status Last Admin (NS Flush) 2 ml UNSCH PRN IV FLUSH 12/15/17 22:30 (NS Flush) 2 ml BID IV FLUSH 12/16/17 09:00 01/05/18 22:15 (Robitussin Dm 200-20 Mg/10 ml Liq) 10 ml Q4H PRN PO 12/15/17 22:30 Future Hold (Heparin Inj) 5,000 units Q8H SQ 12/16/17 12:00 01/06/18 04:27 (Morphine Inj) 1 mg Q4H PRN IM 12/16/17 09:15 Future Hold 12/16/17 10:11 (Mucinex Er) 600 mg BID PO 12/16/17 09:15 Future Hold 12/16/17 10:51 Fentanyl Citrate 250 ml @ 5 mls/hr TITRATE PRN IV 12/16/17 16:30 01/06/18 01:07 Miscellaneous Information 1 Q361D XX 12/16/17 16:45 (Chlorhexidine 2% Cloth) 3 pack Taper DAILY@04 TOP 12/17/17 04:00 12/13/18 03:59 01/06/18 04:00 (Chlorhexidine 2% Cloth) 3 pack UNSCH PRN TOP 12/16/17 16:45 (Milk Of Magnesia Liq) 30 ml Q12H PRN PO 12/16/17 16:45 (Senokot) 17.2 mg Q12H PRN PO 12/16/17 16:45 12/28/17 08:39 (Dulcolax Supp) 10 mg DAILY PRN RECTAL 12/16/17 16:45 (Lactulose Liq) 30 ml DAILY PRN PO 12/16/17 16:45 (Peridex 0.12% Liq) 15 ml BID@08,20 MT 12/16/17 20:00 01/05/18 20:18 Potassium Chloride 100 ml @ 50 mls/hr Q2H PRN IV 12/17/17 07:45 12/31/17 09:33 Potassium Chloride 100 ml @ 50 mls/hr Q2H PRN IV 12/17/17 07:45 (K-Lyte Cl Eff) 50 meq UNSCH PRN PO 12/17/17 07:45 Potassium Chloride 100 ml @ 25 mls/hr UNSCH PRN IV 12/17/17 07:45 01/01/18 07:03 Potassium Chloride 100 ml @ 50 mls/hr Q2H PRN IV 12/17/17 07:45 Magnesium Sulfate 4 gm/Sodium Chloride 100 ml @ 50 mls/hr UNSCH PRN IV 12/17/17 07:45 (Mag-Ox) 800 mg UNSCH PRN PO 12/17/17 07:45 Magnesium Sulfate 2 gm/Sodium Chloride 100 ml @ 50 mls/hr UNSCH PRN IV 12/17/17 07:45 (K-Phos) 2,000 mg Q4H PRN PO 12/17/17 07:45 12/17/17 23:49 Sodium Phosphate 30 mmol/Sodium Chloride 250 ml @ 42 mls/hr UNSCH PRN IV 12/17/17 07:45 12/18/17 08:40 (K-Phos) 2,000 mg UNSCH PRN PO/TUBE 12/17/17 07:45 Potassium Phosphate 30 mmol/ Sodium Chloride 260 ml @ 42 mls/hr UNSCH PRN IV 12/17/17 07:45 12/19/17 07:57 (Albuterol Neb) 2.5 mg Q2HR NEB PRN NEB 12/21/17 08:30 01/06/18 07:30 (Pulmicort Respule Neb) 0.5 mg Q12HR NEB NEB 12/21/17 20:00 01/06/18 07:30 (NS Flush) DAILY IV FLUSH 12/22/17 09:00 01/04/18 08:42 (NS Flush) UNSCH PRN IV FLUSH 12/21/17 09:15 12/28/17 21:22 (Bactroban Nasal 2% Oint) Taper BID EACH NARE 12/21/17 21:00 12/17/18 20:59 01/04/18 20:25 (Lacrilube Opht Oint) 1 applic Q12HR EACH EYE 12/21/17 10:00 01/04/18 20:25 (D50w (Vial) Inj) 50 ml UNSCH PRN IV PUSH 12/21/17 09:15 (Glucagon Inj) 1 mg UNSCH PRN OTHER 12/21/17 09:15 (NovoLIN R SUPPLEMENTAL SCALE) 1 Q6HR SQ 12/21/17 12:00 01/06/18 06:23 (Tylenol 650 Mg/ 20 ml Liq) 650 mg Q6H PRN NG 12/21/17 09:30 01/02/18 08:21 (Pill Splitter) 1 ea UNSCH PRN OTHER 12/21/17 21:00 (Aspirin Chew) 81 mg DAILY CHEW 12/22/17 09:00 01/06/18 08:32 (Cathflo Activase Inj) 2 mg Q2H PRN INTRACATH 12/22/17 14:15 12/22/17 14:37 (Synthroid) 25 mcg DAILY@0600 PO 12/23/17 06:00 01/06/18 06:23 (Reglan Inj) 5 mg Q8H PRN IV PUSH 12/24/17 17:45 12/27/17 01:50 Pharmacy Profile Note 0 ml @ 0 mls/hr UNSCH OTHER 12/26/17 14:15 (Brethine Inj) 1 mg UNSCH PRN SQ 12/27/17 08:15 Linezolid 300 ml @ 300 mls/hr Q12H IV 12/27/17 15:00 01/06/18 04:27 (Reglan Inj) 5 mg Q8H IV PUSH 12/28/17 15:00 01/06/18 06:23 (Xanax) 0.5 mg Q8H PRN PO 12/30/17 11:00 01/06/18 04:27 (Pepcid) 20 mg BID PO 01/01/18 21:00 01/06/18 08:32 (Diflucan) 100 mg Q24H PO 01/01/18 11:00 01/08/18 10:59 01/05/18 12:31 (SoluMEDROL INJ) 20 mg Q12H IV PUSH 01/02/18 22:00 01/06/18 08:31 (Levemir Inj) 12 units Q12HR SQ 01/02/18 21:00 01/06/18 08:32 (Lasix Inj) 20 mg BID@09,18 IV PUSH 01/02/18 18:00 01/06/18 08:32 Vancomycin HCl 1250 mg/Sodium Chloride 262.5 ml @ 250 mls/hr Q12H IV 01/03/18 22:00 01/06/18 08:31 (Catapres) 0.1 mg Q8HR PO 01/03/18 22:00 01/05/18 22:16 Lines PIV Past Medical History Anxiety Past Surgical History Cholecystectomy Hysterectomy Allergies: Coded Allergies: No Known Allergies (Unverified , 12/15/17) Objective . Vital Signs Date Time Temp Pulse Resp B/P (MAP) Pulse Ox O2 Delivery O2 Flow Rate FiO2 01/06/18 08:00 40 01/06/18 08:00 74 01/06/18 08:00 98.4 81 12 109/56 (73) 99 01/06/18 07:31 100 40 01/06/18 06:00 74 01/06/18 04:15 98 40 01/06/18 04:00 77 01/06/18 04:00 98.4 77 16 104/50 (68) 98 01/06/18 04:00 40 01/06/18 02:00 97 01/06/18 00:00 79 01/06/18 00:00 40 01/06/18 00:00 98.3 79 16 95/53 (67) 98 01/06/18 00:00 98 40 01/05/18 22:00 104 01/05/18 20:00 98.5 89 16 111/57 (75) 96 01/05/18 20:00 40 01/05/18 20:00 89 01/05/18 19:28 97 40 01/05/18 18:00 113 01/05/18 16:00 113 01/05/18 16:00 97.8 78 16 103/53 (70) 97 01/05/18 16:00 40 01/05/18 15:32 97 40 01/05/18 14:00 113 01/05/18 12:00 113 01/05/18 12:00 99.0 134 23 116/58 (77) 97 01/05/18 12:00 40 01/05/18 11:15 96 40 01/05/18 10:53 97 40 01/05/18 10:00 113 . Laboratory Tests Test 01/05/18 02:48 White Blood Count 26.7 TH/MM3 Red Blood Count 4.32 MIL/MM3 Hemoglobin 12.8 GM/DL Hematocrit 38.0 % Mean Corpuscular Volume 87.9 FL Mean Corpuscular Hemoglobin 29.8 PG Mean Corpuscular Hemoglobin Concent 33.9 % Red Cell Distribution Width 13.5 % Platelet Count 573 TH/MM3 Mean Platelet Volume 8.5 FL Laboratory Tests Test 01/05/18 02:48 Blood Urea Nitrogen 31 MG/DL Creatinine 0.57 MG/DL Random Glucose 225 MG/DL Calcium Level 8.8 MG/DL Sodium Level 132 MEQ/L Potassium Level 4.4 MEQ/L Chloride Level 95 MEQ/L Carbon Dioxide Level 26.3 MEQ/L Anion Gap 11 MEQ/L Estimat Glomerular Filtration Rate 114 ML/MIN Imaging Abdomen/Pelvis CT 01/04/18 0000 Signed Impressions: Service Date/Time: Friday, January 05, 2018 00:57 - CONCLUSION: Rectal tube in good position. Some asymmetry of the renal nephrograms the left one being slightly delayed of uncertain etiology. Conceivably pyelonephritis would be within the differential on the left based on the patient's symptoms of leukocytosis. Ravinder Krause MD Chest X-Ray 01/02/18 0600 Signed Impressions: Service Date/Time: Tuesday, January 02, 2018 03:45 - CONCLUSION: 1. Residual patchy densities right upper lobe and left lower lobe. Miguel Lynne MD CT Angiography 12/16/17 0000 Signed Impressions: Service Date/Time: Saturday, December 16, 2017 13:49 - CONCLUSION: 1. Negative for pulmonary emboli. 2. Dense consolidation in the lungs especially the lung bases with several cavitary lesions as above. Findings are most characteristic of pneumonia. Cannot exclude septic embolic disease. No significant effusion. Malachi Hardin MD Chest X-Ray 01/02/18 0600 Signed Impressions: Service Date/Time: Tuesday, January 02, 2018 03:45 - CONCLUSION: 1. Residual patchy densities right upper lobe and left lower lobe. Miguel Lynne MD Chest X-Ray 01/01/18 06 Signed Impressions: Service Date/Time: Monday, January 01, 2018 02:48 - CONCLUSION: Improved aeration of the right lung with minimal bibasilar densities. Miguel Lynne MD Physical Exam GENERAL: Awake and following commands, NAD. On CPAP SKIN: Warm and dry. No rash EYES: non icteric ENT: moist mucosae, no thrush NECK: Tracheostomy site ok CARDIOVASCULAR: Tachycardic, regular rhythm on monitor; no murmurs, rubs gallops RESPIRATORY: Coarse BS dominga. Decreased at bases ABDOMEN: soft , not tender, not distended BS+ EXTREMITIES: Improving edema : clear yellow urine NEUROLOGICAL: Awake, responding. All extremites very weak PSYCHIATRIC: Awake, and cooperative LINE: No evidence of infection Assessment & Plan Remarks IMPRESSION Sepsis present, high grade, on admission, has MRSA on blood cultures - S/P arrest - last (+) BC 12/18 Bilateral pneumonia, some with cavitation - C/S with MRSA - CXR improving Very worrisome for endocarditis - clinically , but JEANINE negative Respiratory failure. worsening infiltrates, PNA - S/P trach - CXR improving Leukocytosis, persistent, decreasing Diarrhea, C diff negative x 2 RECOMMENDATION Continue zyvox - give 14 days Continue IV Vanco Continue Diflucan - to finish 01/08 Follow CBC Monitor progress Weaning per CCM D/W Liliam Ritchie MD Jan 06, 2018 09:07
[2018-01-06] MEDS: FLUCONAZOLE 100 MG TAB PO SCH (11:00)
--- NOTE | 2018-01-06 13:29 | HHI.CCPN ---
Subjective Remarks/Hospital Course This is a 47-year-old female with a history of anxiety disorder, that presented to [facility] on with complaints of chest pain and dyspnea that has been lasting for the past 4 days. The patient was transferred to [facility]. Imaging and laboratory studies were initially performed which showed a chest x-ray with bilateral patchy airspace consolidation consistent with bronchial pneumonia, and her lactic acid level was noted to be 3.1. The patient's oxygen requirements continue to increase the patient became tachypneic with a respiratory rate in the 40s and tachycardic, heart rate in the 120s. Pulmonology was consulted, CT was performed which revealed no pulmonary emboli , will several cavitary lesions, dense consolidation at both lung bases, air bronchograms and extensive pneumomediastinum extending into the lower neck and upper chest .ICU was requested to see patient. Upon observation the patient was severely dyspneic, with significant accessory muscle movement, violently coughing hemoptysis. Decision made to intubate patient for airway protection. 12/17 Patient is sedated with Diprivan and versed infusion. afebrile. s/p bronch yesterday by Dr. Klein. 12/18 Patient remains sedated with Versed 10mg/hr and Fentanyl 250 mics. Tmax 102.1 yesterday. + MRSA in bronch and GPC/MRSA from [facility] 12/15 from [facility] 12/19: Patient developed respiratory distress and SVT this am with vent dyssynchrony with air trapping and elevated peak pressure. FiO2 increased to 100%, started on Nimbex infusion. Intermittently tachycardic, occasional bradycardia also. EKG shows sinus rhythm. Patient is very critical now. Will consult cardiology for JEANINE, and also regarding SVT. Chest x-ray shows worsening bilateral infiltrates concerning for ARDS 12/20: Remains intubated heavily sedated and neuromuscularly paralyzed to maintain ventilator synchrony and control peak pressures. Chest x-ray shows persistent bilateral infiltrates. JEANINE planned for today. All cultures so far positive for MRSA. Tachy Arrhythmia is better controlled after starting sotalol 12/21: CODE BLUE overnight when patient became bradycardic. Received epinephrine with chest compressions with return of spontaneous relief within 5 minutes according to RN. Currently on peripheral dopamine at 10 mcg/kg/min. FiO2 currently at 100%. Chest x-ray revealed worsening diffuse bilateral pulmonary infiltrates 12/22: T-max 101.1 Fahrenheit. Currently 98.9 Fahrenheit. +2493 cc past 24 hours. No bowel movement. Currently on roto-prone bed on epoprostenol at 50, 000 ng/kg/min aerosolized. On tube feeds Glucerna 1.5 at 20 cc an hour. 12/23: Overnight, when switching from supine to prone position patient 32nd episode of asystole resolved without chest compressions. We are currently patient has been prone position again with very slow with and without. Tolerating tube feeds now. Remains on cisatracurium drip at 4 mcg/min 12/24 Patient remains sedated and intubated. On Diprivan, Fentanyl, Versed in addition to Nimbex and Dopamine @5mics. Afebrile. 12/25 No events overnight. Remains sedated, intubated and on Rotoprone bed. On Dopamine 5 mics and Nimbex. T:99.7 12/26: Remains critically ill remains on prone ventilation. I will change on time/supine time to prospectively 5 hours/1 hour cycles. Increase PEEP to 10 to facilitate prolonged weaning. CXR shows persistent consolidation RUL 12/27: Remains critical but oxygenation stable. Off dopamine but hypotensive now with map of 58. Start on Levophed to keep map above 65. Change prone/ supine cycles to 4 hours each. Discontinue prone therapy in the next 24 hours if stable. WBC count is slightly improved 12/28: Transitioned from a prone bed to Roto-Rest today, tolerated well. Remains on Flolan will start weaning today per protocol. Urine output is excellent with Lasix. Remains on Levophed to maintain map above 65. Discontinue Nimbex today 12/29: hypoxia continues to improve. wbc uptrending, although remains afebrile. cultures NGTD. good diuresis. developing metabolic alkalosis most likely from contraction. 12/30: continues to diurese well. off rota-rest bed. on my evaluation today, however, awake and alert, follows commands. cannot lift hands off bed or head off bed at all. severely weak, most likely from critical illness polymyopathy ( prolonged neuromuscular blockade and steroid use). unable to successfully pass SBT. intubation and mechanical ventilation for > 2 weeks. will require tracheostomy to progress care further. 12/31: Status post trach yesterday. Tolerating SBT. Continues to have significant neuromuscular weakness. Attempt 2-4hour T piece today 01/01: Patient more critical today, WBC increased to 29.8. Diarrhea +. Tachycardic, Did not tolerate Tp today. Placed back on vent. ID has started Diflucan. Check repeat C Diff. 01/02: Tolerated 1 hour of T piece today, currently on CPAP. Muscle strength improving 4 out of 5 on exam today. WBC 27.7 today, slightly improved. Urine output excellent. C. difficile negative 2. Tachycardia persist Subjective 01/03: tachycardia somewhat improved. wbc still uptrending. sputum growing mold species, speciation and sensitivities to follow. did tolerate more t-piece time than yesterday. 01/04: wbc still elevated. sputum growing aspergillus. pt doing well on t-piece trials and lasting longer. still very weak and unable to lift hands off bed. patient denies complaints. just on low-dose fentanyl. 01/05: wbc downtrending. continues to lengthen time with t-piece. OOB to stretcher chair. will need long-term acute care level rehab. ROS negative. 01/06: Remains on the vent but tolerating CPAP. Follows commands but weakness persists. No labs today Objective Vital Signs Date Time Temp Pulse Resp B/P (MAP) Pulse Ox O2 Delivery O2 Flow Rate FiO2 01/06/18 12:00 74 01/06/18 12:00 40 01/06/18 12:00 98.1 17 112/55 (74) 97 01/04/18 12:17 T-piece 5.00 Intake and Output 01/06/18 01/06/18 01/06/18 07:59 15:59 23:59 Intake Total 696 ml Output Total 1400 ml Balance -704 ml Result Diagram: 01/05/18 0248 01/05/18 0248 Imaging Last Impressions Chest X-Ray 12/24/17 0600 Signed Impressions: Service Date/Time: Sunday, December 24, 2017 04:53 - CONCLUSION: Persistent dense consolidation right upper lobe and a new small area of consolidation in the left lower lobe. Yomi Lopez MD CT Angiography 12/16/17 0000 Signed Impressions: Service Date/Time: Doug, December 16, 2017 13:49 - CONCLUSION: 1. Negative for pulmonary emboli. 2. Dense consolidation in the lungs especially the lung bases with several cavitary lesions as above. Findings are most characteristic of pneumonia. Cannot exclude septic embolic disease. No significant effusion. Malachi Hardin MD Objective Remarks GENERAL: 47-year-old female lying in bed. On PSV SKIN: Warm and dry. HEAD: Normocephalic. EYES: No scleral icterus. No injection or drainage. ENT: Oral cavity is moist NECK: Supple, trachea midline. New trach in place without significant bleeding CARDIOVASCULAR: Currently in sinus tachycardia. No murmurs RESPIRATORY: Anterior lung [place] equal breath bilaterally. Bilateral coarse rhonchi and wheezes. GASTROINTESTINAL: Abdomen soft, non-tender, nondistended. MUSCULOSKELETAL: No significant peripheral edema NEURO: Alert awake. follows commands. globally weak, functional quadriparesis. Muscle power slightly improved 3-4 out of 5, in all extremities A/P Problem List: (1) Acute hypoxemic respiratory failure ICD Code: J96.01 - Acute respiratory failure with hypoxia (2) Septic shock due to methicillin resistant Staphylococcus aureus ICD Code: A41.02 - Sepsis due to Methicillin resistant Staphylococcus aureus; R65.21 - Severe sepsis with septic shock (3) Sepsis due to methicillin resistant Staphylococcus aureus (MRSA) ICD Code: A41.02 - Sepsis due to Methicillin resistant Staphylococcus aureus (4) ARDS (adult respiratory distress syndrome) ICD Code: J80 - Acute respiratory distress syndrome (5) Cavitating pneumonia (6) 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 s/p tracheostomy. continue slow vent wean. 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 Up to chair daily Acetaminophen 650 mg liquid by tube every 6 hours as needed fever Respiratory: Acute hypoxemic respiratory failure status post tracheostomy Severe ARDS-improving Small right Pneumothorax Pneumomediastinum Hemoptysis by history Pulmonary cavitary lesions CPAP daily TP, increase TP time daily, s/p prone ventilation. s/p trach 12/30/17 Ventilator bundle. Albuterol/ipratropium aerosols every 4 hours with albuterol aerosols every 2 hours as needed dyspnea Budesonide 0.5/2 1 inhalation twice daily Methylprednisolone succinate 20 mg IV every 8 hours-change to prednisone 20 mg daily for 5 days and stop s/p flolan 12/16 -CT Angio - extensive pneumomediastinum extending into neck and upper chest. Dense consolidation at both lung bases, air bronchograms , 2 cavitary lesions 12/16-bronchoscopy performed by Dr. Klein, no active sites noted for bleeding, moderate purulent mucus bilaterally noted 2 BAL samples sent CTS has followed for Pneumomediastinum-per Dr. Guadarrama no intervention at this time. Dr. Mireles pulmonology following Cardiovascular: Septic shock- resolved. Bradycardic arrest- resolved. Paroxysmal atrial fibrillation- resolved, no in NSR SVT- resolved. Probable infective endocarditis Elevated troponin- resolved. off vasopressors. On sotalol 40 mg twice daily by Dr. Bray 12/19 Tachycardic, will not add AV kareem blockers secondary to bradycardic arrest Monitor HR and BP keep MAP>65mmHg Transesophageal echocardiogram 12/20 revealed no signs of endocarditis. Preserved LV function. Trace MR/TR Echo 12/17 showed EF 60-65%. Echo 12/21 EF 50%. Cannot rule out regional wall motion and ability Troponin 1.26 from 3.4 and downward trending Aspirin 81 mg p.o. daily FEN/Renal: Hypernatremia- resolved. Acute intravascular volume overload- persistent. Monitor renal function Electrolytes replacement per protocol. Continue Lasix reduce to 20mg Q12. Diuresis to dry weight GI: Elevated AST and alkaline phosphatase - improving. Hypoalbuminemia Acute protein calorie malnutrition - moderate On tube feeds-Glucerna 1.5 with goal rate 55ml/hr Famotidine 20 mg twice daily GI prophylaxis Docusate sodium/senna 1 tablet twice daily for bowel regimen Having bowel movements. Speech following ID: MRSA Bacteremia MRSA pneumonia Worsening sepsis leukocytosis Shahnaz UTI Septic shock- resolved. ABX per ID:Continue zyvox IV Vanco and Diflucan repeat C. difficile neg Panculture follow up ceftaroline Dcd 12/27/17. Cubicin DCd 12/26 by ID JEANINE revealed no signs of endocarditis 12/20 12/15 [facility] from [facility]- MRSA 12/16 Bronch BAL- MRSA [facility] 12/16, 12/17 12/18: MRSA Blood culture 12/19 no growth 12/20 sputum/12/21 BAL MRSA influenza, pneumococcal and Legionella antigens- Negative Heme: Leukocytosis Normocytic anemia Monitor CBC. 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 Sliding scale insulin Accu-Cheks every 6 hours to maintain euglycemia/medium regimen. Levemir to 12 units every 12 01/02. Low free T3 and T4 on levothyroxine 25 mcg daily with low T4. 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 Its more appropriate to work up when she is over the critical illness Prophylaxis: GI Prophylaxis Famotidine IV DVT Prophylaxis -- SCDs -heparin SQ LEVEL 2 Maribel Pal MD Jan 06, 2018 13:29
--- NOTE | 2018-01-06 14:35 | PD.CONS ---
HPI History of Present Illness This is a 47 year old female who presented with chest pain and SOB and was found to have bronchopneumonia with severe cavitary lesions. SHe had respiratory distress, was intubated and later on rotaprone bed. She is now supine and s/p trach, failing CPAP trials. GI has been consulted for PEG tube placement. Pt is drowsy but oriented and is agreeable to proceed with the procedure. (Carla Rivas) PFSH Past Medical History Anxiety Denies DM, CAD, irregular heart rhythm, respiratory problems, asthma, emphysema , COPD, liver problems, kidney problems, DVT, PE, CVA, seizures, thyroid problems, or cancers . Past Surgical History Cholecystectomy Hysterectomy . (Carla Rivas) Coded Allergies: No Known Allergies (Unverified , 12/15/17) Family History Father with heart disease and pneumonia . Social History Tobacco: denies ever smoking Alcohol: does not currently drink Illicit drugs: smoked marijuana when she was younger . (Carla Rivas) Review of Systems noncontributory (Carla Rivas) GI Exam Vitals I&O Vital Signs Date Time Temp Pulse Resp B/P (MAP) Pulse Ox O2 Delivery O2 Flow Rate FiO2 01/06/18 14:11 97 40 01/06/18 14:00 74 01/06/18 12:00 74 01/06/18 12:00 40 01/06/18 12:00 98.1 83 17 112/55 (74) 97 01/06/18 10:00 74 01/06/18 08:00 40 01/06/18 08:00 74 01/06/18 08:00 98.4 81 12 109/56 (73) 99 01/06/18 07:31 100 40 01/06/18 06:00 74 01/06/18 04:15 98 40 01/06/18 04:00 77 01/06/18 04:00 98.4 77 16 104/50 (68) 98 01/06/18 04:00 40 01/06/18 02:00 97 01/06/18 00:00 79 01/06/18 00:00 40 01/06/18 00:00 98.3 79 16 95/53 (67) 98 01/06/18 00:00 98 40 01/05/18 22:00 104 01/05/18 20:00 98.5 89 16 111/57 (75) 96 01/05/18 20:00 40 01/05/18 20:00 89 01/05/18 19:28 97 40 01/05/18 18:00 113 01/05/18 16:00 113 01/05/18 16:00 97.8 78 16 103/53 (70) 97 01/05/18 16:00 40 01/05/18 15:32 97 40 I/O 01/05/18 01/05/18 01/05/18 01/06/18 01/06/18 01/06/18 07:00 15:00 23:00 07:00 15:00 23:00 Intake Total 1973 ml 1715 ml 696 ml Output Total 1600 ml 1900 ml 1400 ml Balance 373 ml -185 ml -704 ml IV Total 780 ml 850 ml Tube Feeding 993 ml 665 ml 556 ml Other 200 ml 200 ml 140 ml Output Urine Total 1000 ml 1300 ml 1100 ml Stool Total 600 ml 600 ml 300 ml Imaging Last Impressions Abdomen/Pelvis CT 01/04/18 0000 Signed Impressions: Service Date/Time: Friday, January 05, 2018 00:57 - CONCLUSION: Rectal tube in good position. Some asymmetry of the renal nephrograms the left one being slightly delayed of uncertain etiology. Conceivably pyelonephritis would be within the differential on the left based on the patient's symptoms of leukocytosis. Ravinder Krause MD Chest X-Ray 01/02/18 0600 Signed Impressions: Service Date/Time: Tuesday, January 02, 2018 03:45 - CONCLUSION: 1. Residual patchy densities right upper lobe and left lower lobe. Miguel Lynne MD CT Angiography 12/16/17 0000 Signed Impressions: Service Date/Time: Saturday, December 16, 2017 13:49 - CONCLUSION: 1. Negative for pulmonary emboli. 2. Dense consolidation in the lungs especially the lung bases with several cavitary lesions as above. Findings are most characteristic of pneumonia. Cannot exclude septic embolic disease. No significant effusion. Malachi Hardin MD Laboratory Date/Time Source Procedure Growth Status 01/01/18 15:53 Blood Peripheral Aerobic Blood Culture - Final NO GROWTH IN 5 DAYS Complete 01/01/18 15:53 Blood Peripheral Anaerobic Blood Culture - Final NO GROWTH IN 5 DAYS Complete 01/01/18 16:30 Sputum Endotracheal Gram Stain - Final Resulted 01/01/18 16:30 Sputum Culture - Preliminary Aspergillus Species Resulted 01/01/18 14:30 Urine Catheterized Urine Urine Culture - Final NO GROWTH IN 48 HOURS. Complete Physical Examination HEENT: PERRL; normocephalic; atraumatic; no jaundice. CHEST: CTA CARDIAC: RRR ABDOMEN: Soft, nondistended, nontender; no hepatosplenomegaly; bowel sounds are present in all four quadrants. dark brown stool in collection bag EXTREMITIES: No clubbing, cyanosis, or edema. SKIN: Normal; no rash; no jaundice. 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 s/p trach, off rotaprone. pt is agreeable to proceed with PEG tube PLAN - EGD with PEG tube placement - obtain consent - hold TF after MN - hold heparin at midnight - on vanc, linezolid - further recs to follow pt seen by myself and Dr López and this note is on his behalf (Carla Rivas) Physician Comments Patient seen and examined Agree with above Continue with current supportive care Monitor labs PEG placement tomorrow (Ronak López MD) Carla Rivas Jan 06, 2018 14:35 Ronak López MD Jan 06, 2018 17:56
--- NOTE | 2018-01-06 16:35 | HHI.PR ---
Subjective Remarks on the ventilator alert no distress Objective Vital Signs Date Time Temp Pulse Resp B/P (MAP) Pulse Ox O2 Delivery O2 Flow Rate FiO2 01/06/18 16:00 97.3 77 12 109/52 (71) 98 01/06/18 16:00 74 01/06/18 16:00 40 01/06/18 14:11 97 40 01/06/18 14:00 74 01/06/18 12:00 74 01/06/18 12:00 40 01/06/18 12:00 98.1 83 17 112/55 (74) 97 01/06/18 10:00 74 01/06/18 08:00 40 01/06/18 08:00 74 01/06/18 08:00 98.4 81 12 109/56 (73) 99 01/06/18 07:31 100 40 01/06/18 06:00 74 01/06/18 04:15 98 40 01/06/18 04:00 77 01/06/18 04:00 98.4 77 16 104/50 (68) 98 01/06/18 04:00 40 01/06/18 02:00 97 01/06/18 00:00 79 01/06/18 00:00 40 01/06/18 00:00 98.3 79 16 95/53 (67) 98 01/06/18 00:00 98 40 01/05/18 22:00 104 01/05/18 20:00 98.5 89 16 111/57 (75) 96 01/05/18 20:00 40 01/05/18 20:00 89 01/05/18 19:28 97 40 01/05/18 18:00 113 I/O 01/05/18 01/05/18 01/05/18 01/06/18 01/06/18 01/06/18 07:00 15:00 23:00 07:00 15:00 23:00 Intake Total 1973 ml 1715 ml 696 ml Output Total 1600 ml 1900 ml 1400 ml Balance 373 ml -185 ml -704 ml IV Total 780 ml 850 ml Tube Feeding 993 ml 665 ml 556 ml Other 200 ml 200 ml 140 ml Output Urine Total 1000 ml 1300 ml 1100 ml Stool Total 600 ml 600 ml 300 ml Result Diagram: 01/05/18 0248 01/05/18 0248 Procedures BiPAP Objective Remarks GENERAL: sedated on vent support SKIN: Warm and dry. HEAD: Atraumatic. Normocephalic. EYES: Pupils equal and round. No scleral icterus. No injection or drainage. ENT: No nasal bleeding or discharge. Mucous membranes pink and moist. NECK: Trachea midline. No JVD. CARDIOVASCULAR: Regular rate and rhythm. RESPIRATORY: No accessory muscle use. Clear to auscultation. Breath sounds equal bilaterally. GASTROINTESTINAL: Abdomen soft, non-tender, nondistended. Hepatic and splenic margins not palpable. MUSCULOSKELETAL: Extremities without clubbing, cyanosis, or edema. No obvious deformities. NEUROLOGICAL: Awake and alert. No obvious cranial nerve deficits. Motor grossly within normal limits. Five out of 5 muscle strength in the arms and legs. Normal speech. PSYCHIATRIC: Appropriate mood and affect; insight and judgment normal. Assessment and Plan Assessment and Plan imp: ALERT, TRACHEOSTOMY IN PLACE respiratory failure/ plan pulm toilet wean as tolerated F/U CXRAY Ileana Tejeda MD Jan 06, 2018 16:35
[2018-01-06 16:46] LABS: BILIRUBIN, URINE NEG (NEG); BLOOD, URINE NEG (NEG); GLUCOSE,URINE NEG (NEG); KETONE, URINE NEG (NEG); MUCUS URINE FEW /lpf (OCC); NITRITE,URINE NEG (NEG); PH, URINE 6.5 (5.0-8.5); TRANSITIONAL EPI CELLS, URINE 1 /hpf; URINE COLOR YELLOW (YELLW/STRAW); URINE LEUKOCYTE ESTERASE NEG (NEG)
[2018-01-06] MEDS ORDERED: PHARMACY ORDERED LAB ONE (21:45)
[2018-01-07] VITALS (15 sets, daily range): BP systolic 107–143; BP diastolic 51–91; PULSE 71–108; RESP 15–28; TEMP 98–98.8; O2SAT 98–100
[2018-01-07] MEDS: LINEZOLID 600 MG PREMIX 300 ML IV SCH ×2 (03:00→16:36)
[2018-01-07] MEDS: CHLORHEXIDINE GLUCONATE 2 % 1 PACK (2 CLOTHS) TOP SCH (03:18)
[2018-01-07] MEDS: cloNIDine HCL 0.1 MG TAB PO SCH ×3 (05:06→21:57)
[2018-01-07] MEDS: LEVOTHYROXINE SODIUM 25 MCG TAB PO SCH (05:06)
[2018-01-07] MEDS: INSULIN NovoLIN REGULAR SUPPLEMENTAL SCALE SQ SCH ×3 (05:07→18:00)
--- NOTE | 2018-01-07 05:48 | RADRPT ---
EXAM DATE/TIME: 01/07/2018 03:17 [facility] COMPARISON: CHEST SINGLE AP, January 02, 2018, 3:45. INDICATIONS : Shortness of breath, possible pulmonary disease. MEDICAL HISTORY : Sepsis. Pneumonia SURGICAL HISTORY : None. ENCOUNTER: Subsequent ACUITY: 2 weeks PAIN SCORE: Non-responsive. LOCATION: Bilateral chest FINDINGS: Tracheostomy and nasogastric tube are stable. Left neck central line has been removed. Slight left ba se infiltrate and perihilar infiltrate on the right are grossly stable. Cardiac contours are unchange d. CONCLUSION: Interval Central line removal. Stable aeration. Demarco Gupta MD on January 07, 2018 at 5:45 Board Certified Radiologist. This report was verified electronically.
[2018-01-07 06:53] LABS: AUTOMATED NEUTROPHIL # 12.9 TH/MM3 (1.8-7.7); BASOPHIL # 0.1 TH/MM3 (0-0.2); BASOPHIL % 0.3 % (0.0-2.0); EOSINOPHIL # 0.1 TH/MM3 (0-0.4); EOSINOPHIL % 0.4 % (0.0-4.0); HEMATOCRIT 37.4 % (35.0-46.0); HEMOGLOBIN 12.8 GM/DL (11.6-15.3); LYMPHOCYTE # 3.3 TH/MM3 (1.0-4.8); MEAN CELL VOLUME 88.5 FL (80.0-100.0); MEAN CORPUSCULAR HEMOGLOBIN 30.2 PG (27.0-34.0); MEAN CORPUSCULAR HGB CONC 34.1 % (32.0-36.0); MEAN PLATELET VOLUME 9.4 FL (7.0-11.0); MONOCYTE # 1.2 TH/MM3 (0-0.9); NEUT % 73.3 % (16.0-70.0); PLATELET COUNT 377 TH/MM3 (150-450); RED BLOOD COUNT 4.22 MIL/MM3 (4.00-5.30); RED CELL DISTRIBUTION WIDTH 13.8 % (11.6-17.2); WHITE BLOOD COUNT 17.6 TH/MM3 (4.0-11.0)
[2018-01-07 07:17] LABS: ALBUMIN 3.1 GM/DL (3.4-5.0); ALKALINE PHOSPHATASE 112 U/L (45-117); ALT (GPT) 32 U/L (10-53); AST (GOT) 24 U/L (15-37); BICARBONATE 31.1 MEQ/L (21.0-32.0); BLOOD UREA NITROGEN 35 MG/DL (7-18); CALCIUM 9.1 MG/DL (8.5-10.1); CHLORIDE 97 MEQ/L (98-107); CREATININE 0.55 MG/DL (0.50-1.00); GLOMERULAR FILTRATION RATE 119 ML/MIN (>89); GLUCOSE,RANDOM 92 MG/DL (74-106); MAGNESIUM 2.1 MG/DL (1.5-2.5); SODIUM (NA) 135 MEQ/L (136-145); TOTAL BILIRUBIN ADULT 0.7 MG/DL (0.2-1.0); TOTAL PROTEIN 7.2 GM/DL (6.4-8.2)
[2018-01-07] MEDS: CHLORHEXIDINE 0.12% (ORAL KIT) 15 ML CUP MT SCH ×2 (08:00→21:00)
[2018-01-07] MEDS: ASPIRIN 81 MG CHEW TAB CHEW SCH (08:00)
[2018-01-07] MEDS: RESP: BUDESONIDE 0.5 MG/2 ML NEB NEB SCH ×2 (08:06→19:23)
[2018-01-07] MEDS: ARTIFICIAL TEARS OPTH OINT 3.5 APPLIC/3.5 GM TUBO EACH EYE SCH ×2 (08:07→20:59)
[2018-01-07] MEDS: MUPIROCIN 2% OINT 1 APPLIC/GM SYR EACH NARE SCH ×2 (08:09→20:59)
[2018-01-07] MEDS: SODIUM CHLORIDE 0.9% FLUSH 10 ML FLUSH IV FLUSH SCH ×3 (08:09→20:59)
[2018-01-07] MEDS: FUROSEMIDE 40 MG/4 ML VIAL IV PUSH SCH (08:10)
[2018-01-07] MEDS: INSULIN DETEMIR 100 UNITS/ML VIAL SQ SCH ×2 (08:10→21:00)
[2018-01-07] MEDS: FAMOTIDINE 20 MG TAB PO SCH ×2 (08:18→20:59)
[2018-01-07] MEDS: ALPRAZolam 0.5 MG TAB PO PRN ×2 (08:18→19:40)
[2018-01-07] MEDS: METOCLOPRAMIDE HCL 10 MG/2 ML VIAL IV PUSH SCH ×3 (08:28→23:59)
[2018-01-07] MEDS: FLUCONAZOLE 100 MG TAB PO SCH (10:11)
[2018-01-07] MEDS: VANCOMYCIN INJ 1,250 MG in SODIUM CHLOR 0.9% 250 ML INJ 250 ML IV SCH ×2 (10:12→20:59)
[2018-01-07] MEDS: methylPREDNISolone SOD SUCC 40 MG/1 ML VIAL IV PUSH SCH ×2 (10:12→20:58)
--- NOTE | 2018-01-07 10:16 | HHI.IDPN ---
Subjective Subjective Remarks Patient is a 47-year-old female, who initially presented to [facility] ED complaining of 4 day history of chest pain and shortness of breath. In have any other history. She was apparently coughing and was bringing up some brownish phlegm. There was no mention of any fever or chills. No nausea or vomiting. No urinary complaints. Chest x-ray showed bilateral patchy basilar infiltrates. CTA did not show any pulmonary embolism, showed bilateral infiltrates with some cavitary lesions noted. She was transferred to the main hospital, and she apparently had some blood in the sputum. She ended up getting intubated. [facility] did bronchoscopy on her. Patient currently sedated postintubation. Her blood pressure is okay and she is not hypotensive. She is tachycardic. Infectious disease consultation has been requested to evaluate the patient with pneumonia Notes reviewed Temps ok BP ok Doing CPAP trials Weaning difficulty due to her anxiety level Awake, not SOB, no abdominal pain S/P trach 12/30 WBC decreasing CXR stable Tolerating TF Antibiotics vanco IV zyvox - to finish 01/09 Diflucan - to finsh today Current Medications Medications (Trade) Dose Ordered Sig/Marily Route Start Time Stop Time Status Last Admin (NS Flush) 2 ml UNSCH PRN IV FLUSH 12/15/17 22:30 (NS Flush) 2 ml BID IV FLUSH 12/16/17 09:00 01/07/18 08:09 (Robitussin Dm 200-20 Mg/10 ml Liq) 10 ml Q4H PRN PO 12/15/17 22:30 Future Hold (Heparin Inj) 5,000 units Q8H SQ 12/16/17 12:00 Future Hold 01/06/18 11:01 (Morphine Inj) 1 mg Q4H PRN IM 12/16/17 09:15 Future Hold 12/16/17 10:11 (Mucinex Er) 600 mg BID PO 12/16/17 09:15 Future Hold 12/16/17 10:51 Fentanyl Citrate 250 ml @ 5 mls/hr TITRATE PRN IV 12/16/17 16:30 01/06/18 22:54 Miscellaneous Information 1 Q361D XX 12/16/17 16:45 (Chlorhexidine 2% Cloth) 3 pack Taper DAILY@04 TOP 12/17/17 04:00 12/13/18 03:59 4/2/18 03:18 (Chlorhexidine 2% Cloth) 3 pack UNSCH PRN TOP 12/16/17 16:45 (Milk Of Magnesia Liq) 30 ml Q12H PRN PO 12/16/17 16:45 (Senokot) 17.2 mg Q12H PRN PO 12/16/17 16:45 12/28/17 08:39 (Dulcolax Supp) 10 mg DAILY PRN RECTAL 12/16/17 16:45 (Lactulose Liq) 30 ml DAILY PRN PO 12/16/17 16:45 (Peridex 0.12% Liq) 15 ml BID@08,20 MT 12/16/17 20:00 01/07/18 08:00 Potassium Chloride 100 ml @ 50 mls/hr Q2H PRN IV 12/17/17 07:45 12/31/17 09:33 Potassium Chloride 100 ml @ 50 mls/hr Q2H PRN IV 12/17/17 07:45 (K-Lyte Cl Eff) 50 meq UNSCH PRN PO 12/17/17 07:45 Potassium Chloride 100 ml @ 25 mls/hr UNSCH PRN IV 12/17/17 07:45 01/01/18 07:03 Potassium Chloride 100 ml @ 50 mls/hr Q2H PRN IV 12/17/17 07:45 Magnesium Sulfate 4 gm/Sodium Chloride 100 ml @ 50 mls/hr UNSCH PRN IV 12/17/17 07:45 (Mag-Ox) 800 mg UNSCH PRN PO 12/17/17 07:45 Magnesium Sulfate 2 gm/Sodium Chloride 100 ml @ 50 mls/hr UNSCH PRN IV 12/17/17 07:45 (K-Phos) 2,000 mg Q4H PRN PO 12/17/17 07:45 12/17/17 23:49 Sodium Phosphate 30 mmol/Sodium Chloride 250 ml @ 42 mls/hr UNSCH PRN IV 12/17/17 07:45 12/18/17 08:40 (K-Phos) 2,000 mg UNSCH PRN PO/TUBE 12/17/17 07:45 Potassium Phosphate 30 mmol/ Sodium Chloride 260 ml @ 42 mls/hr UNSCH PRN IV 12/17/17 07:45 12/19/17 07:57 (Albuterol Neb) 2.5 mg Q2HR NEB PRN NEB 12/21/17 08:30 01/06/18 07:30 (Pulmicort Respule Neb) 0.5 mg Q12HR NEB NEB 12/21/17 20:00 01/07/18 08:06 (NS Flush) DAILY IV FLUSH 12/22/17 09:00 01/07/18 08:09 (NS Flush) UNSCH PRN IV FLUSH 12/21/17 09:15 12/28/17 21:22 (Bactroban Nasal 2% Oint) Taper BID EACH NARE 12/21/17 21:00 12/17/18 20:59 01/06/18 22:53 (Lacrilube Opht Oint) 1 applic Q12HR EACH EYE 12/21/17 10:00 01/07/18 08:07 (D50w (Vial) Inj) 50 ml UNSCH PRN IV PUSH 12/21/17 09:15 (Glucagon Inj) 1 mg UNSCH PRN OTHER 12/21/17 09:15 (NovoLIN R SUPPLEMENTAL SCALE) 1 Q6HR SQ 12/21/17 12:00 01/06/18 17:06 (Tylenol 650 Mg/ 20 ml Liq) 650 mg Q6H PRN NG 12/21/17 09:30 01/02/18 08:21 (Pill Splitter) 1 ea UNSCH PRN OTHER 12/21/17 21:00 (Aspirin Chew) 81 mg DAILY CHEW 12/22/17 09:00 01/06/18 08:32 (Cathflo Activase Inj) 2 mg Q2H PRN INTRACATH 12/22/17 14:15 12/22/17 14:37 (Synthroid) 25 mcg DAILY@0600 PO 12/23/17 06:00 01/07/18 05:06 (Reglan Inj) 5 mg Q8H PRN IV PUSH 12/24/17 17:45 12/27/17 01:50 Pharmacy Profile Note 0 ml @ 0 mls/hr UNSCH OTHER 12/26/17 14:15 (Brethine Inj) 1 mg UNSCH PRN SQ 12/27/17 08:15 Linezolid 300 ml @ 300 mls/hr Q12H IV 12/27/17 15:00 01/09/18 23:00 01/07/18 03:00 (Reglan Inj) 5 mg Q8H IV PUSH 12/28/17 15:00 01/07/18 08:28 (Xanax) 0.5 mg Q8H PRN PO 12/30/17 11:00 01/07/18 08:18 (Pepcid) 20 mg BID PO 01/01/18 21:00 01/07/18 08:18 (Diflucan) 100 mg Q24H PO 01/01/18 11:00 01/08/18 10:59 01/06/18 11:00 (SoluMEDROL INJ) 20 mg Q12H IV PUSH 01/02/18 22:00 01/06/18 22:53 (Levemir Inj) 12 units Q12HR SQ 01/02/18 21:00 01/07/18 08:10 (Lasix Inj) 20 mg BID@09,18 IV PUSH 01/02/18 18:00 01/07/18 08:10 Vancomycin HCl 1250 mg/Sodium Chloride 262.5 ml @ 250 mls/hr Q12H IV 01/03/18 22:00 01/06/18 08:31 (Catapres) 0.1 mg Q8HR PO 01/03/18 22:00 01/07/18 05:06 Miscellaneous Information SPECIFIC LAB TO BE ANABELLA... ONCE ONCE .XX 01/08/18 21:45 01/08/18 21:46 Lines PIV Past Medical History Anxiety Past Surgical History Cholecystectomy Hysterectomy Allergies: Coded Allergies: No Known Allergies (Unverified , 12/15/17) Objective . Vital Signs Date Time Temp Pulse Resp B/P (MAP) Pulse Ox O2 Delivery O2 Flow Rate FiO2 01/07/18 08:06 100 40 01/07/18 08:05 40 01/07/18 04:00 100 40 01/07/18 04:00 40 01/07/18 04:00 98.3 77 18 112/55 (74) 99 01/07/18 00:50 98 40 01/07/18 00:00 98.0 82 18 107/51 (69) 98 01/07/18 00:00 40 01/06/18 20:00 40 01/06/18 20:00 97.6 84 16 116/56 (76) 97 01/06/18 19:41 99 40 01/06/18 16:00 97.3 77 12 109/52 (71) 98 01/06/18 16:00 74 01/06/18 16:00 40 01/06/18 14:11 97 40 01/06/18 14:00 74 01/06/18 12:00 74 01/06/18 12:00 40 01/06/18 12:00 98.1 83 17 112/55 (74) 97 01/07/18 01/07/18 01/08/18 15:00 23:00 07:00 Intake Total 170 ml Balance 170 ml IV Total 170 ml . Laboratory Tests Test 01/07/18 05:29 White Blood Count 17.6 TH/MM3 Red Blood Count 4.22 MIL/MM3 Hemoglobin 12.8 GM/DL Hematocrit 37.4 % Mean Corpuscular Volume 88.5 FL Mean Corpuscular Hemoglobin 30.2 PG Mean Corpuscular Hemoglobin Concent 34.1 % Red Cell Distribution Width 13.8 % Platelet Count 377 TH/MM3 Mean Platelet Volume 9.4 FL Neutrophils (%) (Auto) 73.3 % Lymphocytes (%) (Auto) 19.0 % Monocytes (%) (Auto) 7.0 % Eosinophils (%) (Auto) 0.4 % Basophils (%) (Auto) 0.3 % Neutrophils # (Auto) 12.9 TH/MM3 Lymphocytes # (Auto) 3.3 TH/MM3 Monocytes # (Auto) 1.2 TH/MM3 Eosinophils # (Auto) 0.1 TH/MM3 Basophils # (Auto) 0.1 TH/MM3 CBC Comment AUTO DIFF Differential Comment AUTO DIFF CONFIRMED Platelet Estimate NORMAL Platelet Morphology Comment NORMAL Laboratory Tests Test 01/07/18 05:29 Blood Urea Nitrogen 35 MG/DL Creatinine 0.55 MG/DL Random Glucose 92 MG/DL Total Protein 7.2 GM/DL Albumin 3.1 GM/DL Calcium Level 9.1 MG/DL Magnesium Level 2.1 MG/DL Alkaline Phosphatase 112 U/L Aspartate Amino Transf (AST/SGOT) 24 U/L Alanine Aminotransferase (ALT/SGPT) 32 U/L Total Bilirubin 0.7 MG/DL Sodium Level 135 MEQ/L Potassium Level 3.8 MEQ/L Chloride Level 97 MEQ/L Carbon Dioxide Level 31.1 MEQ/L Anion Gap 7 MEQ/L Estimat Glomerular Filtration Rate 119 ML/MIN Imaging Abdomen/Pelvis CT 01/04/18 0000 Signed Impressions: Service Date/Time: Friday, January 05, 2018 00:57 - CONCLUSION: Rectal tube in good position. Some asymmetry of the renal nephrograms the left one being slightly delayed of uncertain etiology. Conceivably pyelonephritis would be within the differential on the left based on the patient's symptoms of leukocytosis. Ravinder Krause MD Chest X-Ray 01/02/18599 Signed Impressions: Service Date/Time: Tuesday, January 02, 2018 03:45 - CONCLUSION: 1. Residual patchy densities right upper lobe and left lower lobe. Miguel Lynne MD CT Angiography 12/16/17 Signed Impressions: Service Date/Time: Saturday, December 16, 2017 13:49 - CONCLUSION: 1. Negative for pulmonary emboli. 2. Dense consolidation in the lungs especially the lung bases with several cavitary lesions as above. Findings are most characteristic of pneumonia. Cannot exclude septic embolic disease. No significant effusion. Malachi Hardin MD Chest X-Ray 01/02/18599 Signed Impressions: Service Date/Time: Tuesday, January 02, 2018 03:45 - CONCLUSION: 1. Residual patchy densities right upper lobe and left lower lobe. Miguel Lynne MD Chest X-Ray 01/01/18599 Signed Impressions: Service Date/Time: Monday, January 01, 2018 02:48 - CONCLUSION: Improved aeration of the right lung with minimal bibasilar densities. Miguel Lynne MD Physical Exam GENERAL: Awake and following commands, NAD. SKIN: Warm and dry. No rash EYES: non icteric ENT: moist mucosae, no thrush NECK: Tracheostomy site ok CARDIOVASCULAR: Regular rhythm on monitor; no murmurs, rubs gallops RESPIRATORY: Coarse BS dominga. Decreased at bases ABDOMEN: soft , not tender, not distended BS+ EXTREMITIES: Improving edema : clear yellow urine NEUROLOGICAL: Awake, responding. All extremities very weak PSYCHIATRIC: Awake, and cooperative LINE: No evidence of infection Assessment & Plan Remarks IMPRESSION Sepsis present, high grade, on admission, has MRSA on blood cultures - S/P arrest - last (+) BC 12/18 Bilateral pneumonia, some with cavitation - C/S with MRSA - CXR improving Very worrisome for endocarditis - clinically , but JEANINE negative Respiratory failure. - S/P trach - CXR improving Leukocytosis, decreasing Diarrhea, C diff negative x 2 RECOMMENDATION Continue zyvox - give 14 days - to finish 01/09 Continue IV Vanco - anticipate prob 6 weeks from last (+) BC - anticipated end date 01/27 Continue Diflucan - to finish 01/08 Follow CBC Monitor progress Weaning per CCM D/W RN Dr Sherie Dunham covering in my absence 01/08-01/13 Liliam Su MD Jan 07, 2018 10:16
--- NOTE | 2018-01-07 10:50 | HHI.CCPN ---
Subjective Remarks/Hospital Course This is a 47-year-old female with a history of anxiety disorder, that presented to [facility] on with complaints of chest pain and dyspnea that has been lasting for the past 4 days. The patient was transferred to [facility]. Imaging and laboratory studies were initially performed which showed a chest x-ray with bilateral patchy airspace consolidation consistent with bronchial pneumonia, and her lactic acid level was noted to be 3.1. The patient's oxygen requirements continue to increase the patient became tachypneic with a respiratory rate in the 40s and tachycardic, heart rate in the 120s. Pulmonology was consulted, CT was performed which revealed no pulmonary emboli , will several cavitary lesions, dense consolidation at both lung bases, air bronchograms and extensive pneumomediastinum extending into the lower neck and upper chest .ICU was requested to see patient. Upon observation the patient was severely dyspneic, with significant accessory muscle movement, violently coughing hemoptysis. Decision made to intubate patient for airway protection. 12/17 Patient is sedated with Diprivan and versed infusion. afebrile. s/p bronch yesterday by Dr. Klein. 12/18 Patient remains sedated with Versed 10mg/hr and Fentanyl 250 mics. Tmax 102.1 yesterday. + MRSA in bronch and GPC/MRSA from BC 12/15 from [facility] 12/19: Patient developed respiratory distress and SVT this am with vent dyssynchrony with air trapping and elevated peak pressure. FiO2 increased to 100%, started on Nimbex infusion. Intermittently tachycardic, occasional bradycardia also. EKG shows sinus rhythm. Patient is very critical now. Will consult cardiology for JEANINE, and also regarding SVT. Chest x-ray shows worsening bilateral infiltrates concerning for ARDS 12/20: Remains intubated heavily sedated and neuromuscularly paralyzed to maintain ventilator synchrony and control peak pressures. Chest x-ray shows persistent bilateral infiltrates. JEANINE planned for today. All cultures so far positive for MRSA. Tachy Arrhythmia is better controlled after starting sotalol 12/21: CODE BLUE overnight when patient became bradycardic. Received epinephrine with chest compressions with return of spontaneous relief within 5 minutes according to RN. Currently on peripheral dopamine at 10 mcg/kg/min. FiO2 currently at 100%. Chest x-ray revealed worsening diffuse bilateral pulmonary infiltrates 12/22: T-max 101.1 Fahrenheit. Currently 98.9 Fahrenheit. +2493 cc past 24 hours. No bowel movement. Currently on roto-prone bed on epoprostenol at 50, 000 ng/kg/min aerosolized. On tube feeds Glucerna 1.5 at 20 cc an hour. 12/23: Overnight, when switching from supine to prone position patient 32nd episode of asystole resolved without chest compressions. We are currently patient has been prone position again with very slow with and without. Tolerating tube feeds now. Remains on cisatracurium drip at 4 mcg/min 12/24 Patient remains sedated and intubated. On Diprivan, Fentanyl, Versed in addition to Nimbex and Dopamine @5mics. Afebrile. 12/25 No events overnight. Remains sedated, intubated and on Rotoprone bed. On Dopamine 5 mics and Nimbex. T:99.7 12/26: Remains critically ill remains on prone ventilation. I will change on time/supine time to prospectively 5 hours/1 hour cycles. Increase PEEP to 10 to facilitate prolonged weaning. CXR shows persistent consolidation RUL 12/27: Remains critical but oxygenation stable. Off dopamine but hypotensive now with map of 58. Start on Levophed to keep map above 65. Change prone/ supine cycles to 4 hours each. Discontinue prone therapy in the next 24 hours if stable. WBC count is slightly improved 12/28: Transitioned from a prone bed to Roto-Rest today, tolerated well. Remains on Flolan will start weaning today per protocol. Urine output is excellent with Lasix. Remains on Levophed to maintain map above 65. Discontinue Nimbex today 12/29: hypoxia continues to improve. wbc uptrending, although remains afebrile. cultures NGTD. good diuresis. developing metabolic alkalosis most likely from contraction. 12/30: continues to diurese well. off rota-rest bed. on my evaluation today, however, awake and alert, follows commands. cannot lift hands off bed or head off bed at all. severely weak, most likely from critical illness polymyopathy ( prolonged neuromuscular blockade and steroid use). unable to successfully pass SBT. intubation and mechanical ventilation for > 2 weeks. will require tracheostomy to progress care further. 12/31: Status post trach yesterday. Tolerating SBT. Continues to have significant neuromuscular weakness. Attempt 2-4hour T piece today 01/01: Patient more critical today, WBC increased to 29.8. Diarrhea +. Tachycardic, Did not tolerate Tp today. Placed back on vent. ID has started Diflucan. Check repeat C Diff. 01/02: Tolerated 1 hour of T piece today, currently on CPAP. Muscle strength improving 4 out of 5 on exam today. WBC 27.7 today, slightly improved. Urine output excellent. C. difficile negative 2. Tachycardia persist Subjective 01/03: tachycardia somewhat improved. wbc still uptrending. sputum growing mold species, speciation and sensitivities to follow. did tolerate more t-piece time than yesterday. 01/04: wbc still elevated. sputum growing aspergillus. pt doing well on t-piece trials and lasting longer. still very weak and unable to lift hands off bed. patient denies complaints. just on low-dose fentanyl. 01/05: wbc downtrending. continues to lengthen time with t-piece. OOB to stretcher chair. will need long-term acute care level rehab. ROS negative. 01/06: Remains on the vent but tolerating CPAP. Follows commands but weakness persists. No labs today. 01/07: Patient has apnea episodes while she is wide awake. CXR clearing. Will decrease bicarb with diamox and see if respiratory drive improves. Objective Vital Signs Date Time Temp Pulse Resp B/P (MAP) Pulse Ox O2 Delivery O2 Flow Rate FiO2 01/07/18 10:00 88 01/07/18 08:06 100 40 01/07/18 08:00 98.8 28 143/91 (108) 01/04/18 12:17 T-piece 5.00 Intake and Output 01/07/18 01/07/18 01/08/18 08:00 16:00 00:00 Intake Total 590 ml Output Total 1400 ml Balance -810 ml Result Diagram: 01/07/18 0529 01/07/18 0529 Imaging Last Impressions Chest X-Ray 12/24/17 0600 Signed Impressions: Service Date/Time: Sunday, December 24, 2017 04:53 - CONCLUSION: Persistent dense consolidation right upper lobe and a new small area of consolidation in the left lower lobe. Yomi Lopez MD CT Angiography 12/16/17 0000 Signed Impressions: Service Date/Time: Saturday, December 16, 2017 13:49 - CONCLUSION: 1. Negative for pulmonary emboli. 2. Dense consolidation in the lungs especially the lung bases with several cavitary lesions as above. Findings are most characteristic of pneumonia. Cannot exclude septic embolic disease. No significant effusion. Malachi Hardin MD Objective Remarks GENERAL: 47-year-old female lying in bed. CPAP/PSV. SKIN: Warm and dry. HEAD: Normocephalic. Atraumatic. EYES: No scleral icterus. No injection or drainage. ENT: NL. NECK: Supple, trachea midline. Trach in place, clean, dry. CARDIOVASCULAR: NL S1S2. No murmurs. No JVD. RESPIRATORY: Good dominga air movement. Bilateral coarse rhonchi and light wheezes. GASTROINTESTINAL: Abdomen soft, non-tender, nondistended. BS active. MUSCULOSKELETAL: No significant peripheral edema. Warm, well perfused. NEURO: Alert awake. follows commands. globally weak, functional quadriparesis. Muscle power slightly improved 3-4 out of 5, in all extremities A/P Problem List: (1) Acute hypoxemic respiratory failure ICD Code: J96.01 - Acute respiratory failure with hypoxia (2) Septic shock due to methicillin resistant Staphylococcus aureus ICD Code: A41.02 - Sepsis due to Methicillin resistant Staphylococcus aureus; R65.21 - Severe sepsis with septic shock (3) Sepsis due to methicillin resistant Staphylococcus aureus (MRSA) ICD Code: A41.02 - Sepsis due to Methicillin resistant Staphylococcus aureus (4) ARDS (adult respiratory distress syndrome) ICD Code: J80 - Acute respiratory distress syndrome (5) Cavitating pneumonia (6) 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 s/p tracheostomy. continue slow vent wean. 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 Up to chair daily Acetaminophen 650 mg liquid by tube every 6 hours as needed fever Respiratory: Acute hypoxemic respiratory failure status post tracheostomy Severe ARDS-improving Small right Pneumothorax Pneumomediastinum Hemoptysis by history Pulmonary cavitary lesions CPAP daily TP, increase TP time daily, s/p prone ventilation. s/p trach 12/30/17 Ventilator bundle. Albuterol/ipratropium aerosols every 4 hours with albuterol aerosols every 2 hours as needed dyspnea Budesonide 0.5/2 1 inhalation twice daily Methylprednisolone succinate 20 mg IV every 8 hours-change to prednisone 20 mg daily for 5 days and stop s/p flolan 12/16 -CT Angio - extensive pneumomediastinum extending into neck and upper chest. Dense consolidation at both lung bases, air bronchograms , 2 cavitary lesions 12/16-bronchoscopy performed by Dr. Klein, no active sites noted for bleeding, moderate purulent mucus bilaterally noted 2 BAL samples sent CTS has followed for Pneumomediastinum-per Dr. Guadarrama no intervention at this time. Dr. Mireles pulmonology following Start Diamox 500 daily X 3. Cardiovascular: Septic shock- resolved. Bradycardic arrest- resolved. Paroxysmal atrial fibrillation- resolved, no in NSR SVT- resolved. Probable infective endocarditis Elevated troponin- resolved. off vasopressors. On sotalol 40 mg twice daily by Dr. Bray 12/19 Tachycardic, will not add AV kareem blockers secondary to bradycardic arrest Monitor HR and BP keep MAP>65mmHg Transesophageal echocardiogram 12/20 revealed no signs of endocarditis. Preserved LV function. Trace MR/TR Echo 12/17 showed EF 60-65%. Echo 12/21 EF 50%. Cannot rule out regional wall motion and ability Troponin 1.26 from 3.4 and downward trending Aspirin 81 mg p.o. daily FEN/Renal: Hypernatremia- resolved. Acute intravascular volume overload- persistent. Monitor renal function Electrolytes replacement per protocol. Continue Lasix reduce to 20mg Q12. Diuresis to dry weight GI: Elevated AST and alkaline phosphatase - improving. Hypoalbuminemia Acute protein calorie malnutrition - moderate On tube feeds-Glucerna 1.5 with goal rate 55ml/hr Famotidine 20 mg twice daily GI prophylaxis Docusate sodium/senna 1 tablet twice daily for bowel regimen Having bowel movements. Speech following ID: MRSA Bacteremia MRSA pneumonia Worsening sepsis leukocytosis Shahnaz UTI Septic shock- resolved. ABX per ID:Continue zyvox IV Vanco and Diflucan repeat C. difficile neg Panculture follow up ceftaroline Dcd 12/27/17. Cubicin DCd 12/26 by ID JEANINE revealed no signs of endocarditis 12/20 12/15 BC from [facility]- MRSA 12/16 Bronch BAL- MRSA BC 12/16, 12/17 12/18: MRSA Blood culture 12/19 no growth 12/20 sputum/12/21 BAL MRSA influenza, pneumococcal and Legionella antigens- Negative Heme: Leukocytosis Normocytic anemia Monitor CBC. 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 Sliding scale insulin Accu-Cheks every 6 hours to maintain euglycemia/medium regimen. Levemir to 12 units every 12 01/02. Low free T3 and T4 on levothyroxine 25 mcg daily with low T4. 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 Its more appropriate to work up when she is over the critical illness Prophylaxis: GI Prophylaxis Famotidine IV DVT Prophylaxis -- SCDs -heparin SQ Overall impression: Muscle wasting and weight loss, protein calorie malnutrition. For PEG today. Reduce bicarb and hopefully improve respiratory drive. Elias Millan MD Jan 07, 2018 10:50
[2018-01-07] MEDS: fentaNYL DRIP 250 ML IV PRN ×2 (11:33→21:53)
[2018-01-07] MEDS ORDERED: PHENYLEPH/NS 1000 MCG/10 ML SYR IV ONE (12:00)
[2018-01-07] MEDS ORDERED: PROPOFOL 200 MG/20 ML AMP IV ONE (12:00)
[2018-01-07] MEDS ORDERED: LIDOCAINE HCL 1% PF 5 ML SYRINGE OTHER ONE (12:00)
--- NOTE | 2018-01-07 12:47 | GIPROC ---
[facility] [address] [facility]. [facility], [id number] EGD WITH PEG PROCEDURE REPORT EXAM DATE: 01/07/2018 PATIENT NAME: Vianey Guzman V MR#: [id number] BIRTHDATE: 1970 ATTENDING: Amita Torres MD ORDER #: [id number] PHARMACY OPERATIONS MANAGER: Chandra Gloria and Lorna Benson STATUS: inpatient INDICATIONS: The patient is a 47 yr old female here for an EGD with PEG due to dysphagia PROCEDURE PERFORMED: EGD with PEG placement MEDICATIONS: None and Per Anesthesia. TOPICAL ANESTHETIC: CONSENT: The patient understands the risks and benefits of the procedure and understands that these risks include, but are not limited to: sedation, allergic reaction, infection, perforation and/or bleeding. Alternative means of evaluation and treatment include, among others: physical exam, x-rays, and/or surgical intervention. The patient elects to proceed with this endoscopic procedure. medical equipment was checked for proper function. Hand hygiene and appropriate measures for infection prevention was taken. After the risks, benefits and alternatives of the procedure were thoroughly explained, Informed consent was verified, confirmed and timeout was successfully executed by the treatment team. The patient was anesthetized with topical anesthesia and the Pentax [id number] endoscope was introduced through the mouth and advanced to the descending duodenum. The instrument was slowly withdrawn as the mucosa was fully examined. Mild gastritis was found The stomach was then inflated with air, and by a combination of transillumination and manual palpation, the site for the gastrostomy tube placement was selected and marked on the anterior abdominal wall. The skin of the anterior abdomen was surgically prepped and draped with sterile towels. Utilizing strict sterile technique, the selected site was then anesthetized with 1% xylocaine by injection into the skin and subcutaneous tissue. A 1 cm incision was made through the skin and subcutaneous tissue, and the needle/cannula assembly was then passed through the abdominal wall and through the anterior wall of the stomach, maintaining visualization with the endoscope. A snare device previously placed through the instrument channel was then opened and placed around the cannula, the needle was removed, and the insertion wire was passed through the cannula and into the stomach lumen. The snare was then loosened from the cannula, and repositioned to snare the insertion wire. The snare was then pulled up to the endoscope distal tip, and the scope was then withdrawn bringing with it the snare and insertion wire. The insertion wire was then released from the snare, and then loop-attached to the Bard 20 Fr gastrostomy tube. Using the "pull technique", the G-tube was then pulled into place by traction on the insertion wire at the abdominal wall end. The G-tube insertion site was then cleansed once again, and the external bolster was placed over the tube to secure it to the abdominal wall. A sterile dressing was then applied, and the procedure terminated. no abnormalities The gastroscope was then slowly withdrawn and removed. ADVERSE EVENT: There were no complications. IMPRESSIONS: 1. Mild gastritis was found 2. No abnormalities RECOMMENDATIONS: PEG recomendations: 1- NPO for 6 hours except for meds 2- Flush PEG tube every 6 hours with water and after each PEG feeding 3- May resume regular diet in the morning 4- May use Ensure or Boost etc. for PEG tube feeding REPEAT EXAM: procedure as needed Amita Torres MD eSigned: Amita Torers MD 01/07/2018 12:47 PM cc: PATIENT NAME: Vianey Guzman V MR#: [id number]
--- NOTE | 2018-01-07 17:10 | HHI.PR ---
Subjective Remarks on the ventilator alert no distress Objective Vital Signs Date Time Temp Pulse Resp B/P (MAP) Pulse Ox O2 Delivery O2 Flow Rate FiO2 01/07/18 16:05 99 40 01/07/18 16:00 98.4 108 15 132/76 (94) 98 01/07/18 16:00 81 01/07/18 16:00 40 01/07/18 16:00 80 01/07/18 14:00 81 01/07/18 12:15 100 40 01/07/18 12:00 40 01/07/18 12:00 108 01/07/18 12:00 98.2 108 15 132/76 (94) 98 01/07/18 10:00 88 01/07/18 08:06 100 40 01/07/18 08:05 40 01/07/18 08:05 40 01/07/18 08:00 98.8 98 28 143/91 (108) 100 01/07/18 08:00 98 01/07/18 08:00 40 01/07/18 04:00 100 40 01/07/18 04:00 40 01/07/18 04:00 98.3 77 18 112/55 (74) 99 01/07/18 00:50 98 40 01/07/18 00:00 98.0 82 18 107/51 (69) 98 01/07/18 00:00 40 01/06/18 20:00 40 01/06/18 20:00 97.6 84 16 116/56 (76) 97 01/06/18 19:41 99 40 I/O 01/06/18 01/06/18 01/06/18 01/07/18 01/07/18 01/07/18 07:00 15:00 23:00 07:00 15:00 23:00 Intake Total 696 ml 248 ml 420 ml 532.5 ml Output Total 1400 ml 1400 ml Balance -704 ml 248 ml -980 ml 532.5 ml IV Total 248 ml 300 ml 432.5 ml Tube Feeding 556 ml Other 140 ml 120 ml 100 ml Output Urine Total 1100 ml 1200 ml Stool Total 300 ml 200 ml Result Diagram: 01/07/18 0501/07/18 0529 Procedures BiPAP Objective Remarks GENERAL: sedated on vent support SKIN: Warm and dry. HEAD: Atraumatic. Normocephalic. EYES: Pupils equal and round. No scleral icterus. No injection or drainage. ENT: No nasal bleeding or discharge. Mucous membranes pink and moist. NECK: Trachea midline. No JVD. CARDIOVASCULAR: Regular rate and rhythm. RESPIRATORY: No accessory muscle use. Clear to auscultation. Breath sounds equal bilaterally. GASTROINTESTINAL: Abdomen soft, non-tender, nondistended. Hepatic and splenic margins not palpable. MUSCULOSKELETAL: Extremities without clubbing, cyanosis, or edema. No obvious deformities. NEUROLOGICAL: Awake and alert. No obvious cranial nerve deficits. Motor grossly within normal limits. Five out of 5 muscle strength in the arms and legs. Normal speech. PSYCHIATRIC: Appropriate mood and affect; insight and judgment normal. Assessment and Plan Assessment and Plan imp: ALERT, TRACHEOSTOMY IN PLACE respiratory failure/ plan pulm toilet wean as tolerated F/U CXRAY Discharge Planning GENERAL: SKIN: Warm and dry. HEAD: Atraumatic. Normocephalic. EYES: Pupils equal and round. No scleral icterus. No injection or drainage. ENT: No nasal bleeding or discharge. Mucous membranes pink and moist. NECK: Trachea midline. No JVD. CARDIOVASCULAR: Regular rate and rhythm. RESPIRATORY: No accessory muscle use. Clear to auscultation. Breath sounds equal bilaterally. GASTROINTESTINAL: Abdomen soft, non-tender, nondistended. Hepatic and splenic margins not palpable. MUSCULOSKELETAL: Extremities without clubbing, cyanosis, or edema. No obvious deformities. NEUROLOGICAL: Awake and alert. No obvious cranial nerve deficits. Motor grossly within normal limits. Five out of 5 muscle strength in the arms and legs. Normal speech. PSYCHIATRIC: Appropriate mood and affect; insight and judgment normal. Ileana Tejeda MD Jan 07, 2018 17:10
[2018-01-07] MEDS: RESP: ALBUTEROL 2.5 MG/3 ML NEB (PRN) NEB (19:23)
[2018-01-08] VITALS (19 sets, daily range): BP systolic 96–117; BP diastolic 52–60; PULSE 64–102; RESP 13–18; TEMP 98.4–98.6; O2SAT 98–100
[2018-01-08] MEDS: LINEZOLID 600 MG PREMIX 300 ML IV SCH ×2 (03:50→15:13)
[2018-01-08] MEDS: CHLORHEXIDINE GLUCONATE 2 % 1 PACK (2 CLOTHS) TOP SCH (03:50)
[2018-01-08] MEDS: ALPRAZolam 0.5 MG TAB PO PRN ×2 (03:53→22:21)
[2018-01-08 04:07] LABS: AUTOMATED NEUTROPHIL # 17.1 TH/MM3 (1.8-7.7); BASOPHIL % 0.2 % (0.0-2.0); HEMATOCRIT 36.5 % (35.0-46.0); HEMOGLOBIN 12.3 GM/DL (11.6-15.3); LYMPH % 4.6 % (9.0-44.0); LYMPHOCYTE # 0.9 TH/MM3 (1.0-4.8); MEAN CELL VOLUME 88.6 FL (80.0-100.0); MEAN CORPUSCULAR HEMOGLOBIN 29.7 PG (27.0-34.0); MEAN CORPUSCULAR HGB CONC 33.6 % (32.0-36.0); MEAN PLATELET VOLUME 9.2 FL (7.0-11.0); MONO % 2.7 % (0.0-8.0); MONOCYTE # 0.5 TH/MM3 (0-0.9); NEUT % 92.5 % (16.0-70.0); PLATELET COUNT 332 TH/MM3 (150-450); RED BLOOD COUNT 4.12 MIL/MM3 (4.00-5.30); RED CELL DISTRIBUTION WIDTH 13.9 % (11.6-17.2); WHITE BLOOD COUNT 18.5 TH/MM3 (4.0-11.0)
[2018-01-08 04:21] LABS: BICARBONATE 22.9 MEQ/L (21.0-32.0); CREATININE 0.43 MG/DL (0.50-1.00)
[2018-01-08] MEDS: cloNIDine HCL 0.1 MG TAB PO SCH ×3 (06:00→22:00)
[2018-01-08] MEDS: INSULIN NovoLIN REGULAR SUPPLEMENTAL SCALE SQ SCH ×5 (06:00→23:49)
[2018-01-08] MEDS: METOCLOPRAMIDE HCL 10 MG/2 ML VIAL IV PUSH SCH ×3 (06:21→22:22)
[2018-01-08] MEDS: LEVOTHYROXINE SODIUM 25 MCG TAB PO SCH (06:21)
[2018-01-08] MEDS: RESP: ALBUTEROL 2.5 MG/3 ML NEB (PRN) NEB (07:38)
[2018-01-08] MEDS: RESP: BUDESONIDE 0.5 MG/2 ML NEB NEB SCH ×2 (07:38→19:36)
[2018-01-08] MEDS: CHLORHEXIDINE 0.12% (ORAL KIT) 15 ML CUP MT SCH ×2 (08:00→22:23)
[2018-01-08] MEDS: MUPIROCIN 2% OINT 1 APPLIC/GM SYR EACH NARE SCH ×2 (09:00→21:00)
[2018-01-08] MEDS: INSULIN DETEMIR 100 UNITS/ML VIAL SQ SCH ×2 (09:00→22:23)
[2018-01-08] MEDS: ARTIFICIAL TEARS OPTH OINT 3.5 APPLIC/3.5 GM TUBO EACH EYE SCH ×2 (09:00→21:00)
[2018-01-08] MEDS: SODIUM CHLORIDE 0.9% FLUSH 10 ML FLUSH IV FLUSH SCH ×3 (09:00→22:22)
--- NOTE | 2018-01-08 09:01 | HHI.PR ---
Subjective Remarks on the ventilator alert no distress Objective Vital Signs Date Time Temp Pulse Resp B/P (MAP) Pulse Ox O2 Delivery O2 Flow Rate FiO2 01/08/18 07:38 100 40 01/08/18 06:00 74 01/08/18 04:20 100 40 01/08/18 04:00 73 01/08/18 04:00 98.5 73 16 115/59 (77) 100 01/08/18 04:00 40 01/08/18 02:00 67 01/08/18 01:08 100 40 01/08/18 00:00 40 01/08/18 00:00 98.5 64 17 96/60 (72) 100 01/08/18 00:00 64 01/07/18 22:00 74 01/07/18 20:00 98.8 81 16 109/59 (76) 99 01/07/18 20:00 40 01/07/18 20:00 81 01/07/18 19:24 100 40 01/07/18 18:00 71 01/07/18 16:05 99 40 01/07/18 16:00 98.4 108 15 132/76 (94) 98 01/07/18 16:00 81 01/07/18 16:00 40 01/07/18 16:00 80 01/07/18 14:00 81 01/07/18 12:15 100 40 01/07/18 12:00 40 01/07/18 12:00 108 01/07/18 12:00 98.2 108 15 132/76 (94) 98 01/07/18 10:00 88 I/O 01/07/18 01/07/18 01/07/18 01/08/18 01/08/18 01/08/18 07:00 15:00 23:00 07:00 15:00 23:00 Intake Total 420 ml 532.5 ml 3082.5 ml 500 ml Output Total 1400 ml 1900 ml 950 ml Balance -980 ml 532.5 ml 1182.5 ml -450 ml IV Total 300 ml 432.5 ml 3082.5 ml 300 ml Tube Feeding 0 ml 0 ml Other 120 ml 100 ml 0 ml 200 ml Output Urine Total 1200 ml 1650 ml 750 ml Stool Total 200 ml 250 ml 200 ml Result Diagram: 01/08/18 0337 01/08/18 0337 Procedures BiPAP Objective Remarks GENERAL: sedated on vent support SKIN: Warm and dry. HEAD: Atraumatic. Normocephalic. EYES: Pupils equal and round. No scleral icterus. No injection or drainage. ENT: No nasal bleeding or discharge. Mucous membranes pink and moist. NECK: Trachea midline. No JVD. CARDIOVASCULAR: Regular rate and rhythm. RESPIRATORY: No accessory muscle use. Clear to auscultation. Breath sounds equal bilaterally. GASTROINTESTINAL: Abdomen soft, non-tender, nondistended. Hepatic and splenic margins not palpable. MUSCULOSKELETAL: Extremities without clubbing, cyanosis, or edema. No obvious deformities. NEUROLOGICAL: Awake and alert. No obvious cranial nerve deficits. Motor grossly within normal limits. Five out of 5 muscle strength in the arms and legs. Normal speech. PSYCHIATRIC: Appropriate mood and affect; insight and judgment normal. Assessment and Plan Assessment and Plan imp: ALERT, TRACHEOSTOMY IN PLACE respiratory failure/ plan pulm toilet wean as tolerated F/U CXRAY, STABLE Ileana Tejeda MD Jan 08, 2018 09:01
[2018-01-08] MEDS: ASPIRIN 81 MG CHEW TAB CHEW SCH (09:15)
[2018-01-08] MEDS: FUROSEMIDE 20 MG/2 ML VIAL IV PUSH SCH (09:16)
[2018-01-08] MEDS: FAMOTIDINE 20 MG TAB PO SCH ×2 (09:16→22:22)
[2018-01-08] MEDS: VANCOMYCIN INJ 1,250 MG in SODIUM CHLOR 0.9% 250 ML INJ 250 ML IV SCH ×2 (09:17→23:46)
--- NOTE | 2018-01-08 09:56 | HHI.IDPN ---
Subjective Subjective Remarks ID Xcover for . Chart reviewed. Patient is a 47-year-old female, who initially presented to [facility] ED complaining of 4 day history of chest pain and shortness of breath. In have any other history. She was apparently coughing and was bringing up some brownish phlegm. There was no mention of any fever or chills. No nausea or vomiting. No urinary complaints. Chest x-ray showed bilateral patchy basilar infiltrates. CTA did not show any pulmonary embolism, showed bilateral infiltrates with some cavitary lesions noted. She was transferred to the main hospital, and she apparently had some blood in the sputum. She ended up getting intubated. [facility] did bronchoscopy on her. Patient currently sedated postintubation. Her blood pressure is okay and she is not hypotensive. She is tachycardic. Infectious disease consultation has been requested to evaluate the patient with pneumonia dw RN s/p trach and PEG. On Fentanyl. Wide awake and following commands. Temps ok BP ok Plan for CPAP trials Weaning difficulty due to her anxiety level WBC decreasing CXR stable Tolerating TF Antibiotics vanco IV zyvox - to finish 01/09 Diflucan - to finsh today Current Medications Medications (Trade) Dose Ordered Sig/Marily Route Start Time Stop Time Status Last Admin (NS Flush) 2 ml UNSCH PRN IV FLUSH 12/15/17 22:30 (NS Flush) 2 ml BID IV FLUSH 12/16/17 09:00 01/07/18 08:09 (Robitussin Dm 200-20 Mg/10 ml Liq) 10 ml Q4H PRN PO 12/15/17 22:30 Future Hold (Heparin Inj) 5,000 units Q8H SQ 12/16/17 12:00 Future Hold 01/06/18 11:01 (Morphine Inj) 1 mg Q4H PRN IM 12/16/17 09:15 Future Hold 12/16/17 10:11 (Mucinex Er) 600 mg BID PO 12/16/17 09:15 Future Hold 12/16/17 10:51 Fentanyl Citrate 250 ml @ 5 mls/hr TITRATE PRN IV 12/16/17 16:30 01/06/18 22:54 Miscellaneous Information 1 Q361D XX 12/16/17 16:45 (Chlorhexidine 2% Cloth) 3 pack Taper DAILY@04 TOP 12/17/17 04:00 12/13/18 03:59 01/07/18 03:18 (Chlorhexidine 2% Cloth) 3 pack UNSCH PRN TOP 12/16/17 16:45 (Milk Of Magnesia Liq) 30 ml Q12H PRN PO 12/16/17 16:45 (Senokot) 17.2 mg Q12H PRN PO 12/16/17 16:45 12/28/17 08:39 (Dulcolax Supp) 10 mg DAILY PRN RECTAL 12/16/17 16:45 (Lactulose Liq) 30 ml DAILY PRN PO 12/16/17 16:45 (Peridex 0.12% Liq) 15 ml BID@08,20 MT 12/16/17 20:00 01/07/18 08:00 Potassium Chloride 100 ml @ 50 mls/hr Q2H PRN IV 12/17/17 07:45 12/31/17 09:33 Potassium Chloride 100 ml @ 50 mls/hr Q2H PRN IV 12/17/17 07:45 (K-Lyte Cl Eff) 50 meq UNSCH PRN PO 12/17/17 07:45 Potassium Chloride 100 ml @ 25 mls/hr UNSCH PRN IV 12/17/17 07:45 01/01/18 07:03 Potassium Chloride 100 ml @ 50 mls/hr Q2H PRN IV 12/17/17 07:45 Magnesium Sulfate 4 gm/Sodium Chloride 100 ml @ 50 mls/hr UNSCH PRN IV 12/17/17 07:45 (Mag-Ox) 800 mg UNSCH PRN PO 12/17/17 07:45 Magnesium Sulfate 2 gm/Sodium Chloride 100 ml @ 50 mls/hr UNSCH PRN IV 12/17/17 07:45 (K-Phos) 2,000 mg Q4H PRN PO 12/17/17 07:45 12/17/17 23:49 Sodium Phosphate 30 mmol/Sodium Chloride 250 ml @ 42 mls/hr UNSCH PRN IV 12/17/17 07:45 12/18/17 08:40 (K-Phos) 2,000 mg UNSCH PRN PO/TUBE 12/17/17 07:45 Potassium Phosphate 30 mmol/ Sodium Chloride 260 ml @ 42 mls/hr UNSCH PRN IV 12/17/17 07:45 12/19/17 07:57 (Albuterol Neb) 2.5 mg Q2HR NEB PRN NEB 12/21/17 08:30 01/06/18 07:30 (Pulmicort Respule Neb) 0.5 mg Q12HR NEB NEB 12/21/17 20:00 01/07/18 08:06 (NS Flush) DAILY IV FLUSH 12/22/17 09:00 01/07/18 08:09 (NS Flush) UNSCH PRN IV FLUSH 12/21/17 09:15 12/28/17 21:22 (Bactroban Nasal 2% Oint) Taper BID EACH NARE 12/21/17 21:00 12/17/18 20:59 01/06/18 22:53 (Lacrilube Opht Oint) 1 applic Q12HR EACH EYE 12/21/17 10:00 01/07/18 08:07 (D50w (Vial) Inj) 50 ml UNSCH PRN IV PUSH 12/21/17 09:15 (Glucagon Inj) 1 mg UNSCH PRN OTHER 12/21/17 09:15 (NovoLIN R SUPPLEMENTAL SCALE) 1 Q6HR SQ 12/21/17 12:00 01/06/18 17:06 (Tylenol 650 Mg/ 20 ml Liq) 650 mg Q6H PRN NG 12/21/17 09:30 01/02/18 08:21 (Pill Splitter) 1 ea UNSCH PRN OTHER 12/21/17 21:00 (Aspirin Chew) 81 mg DAILY CHEW 12/22/17 09:00 01/06/18 08:32 (Cathflo Activase Inj) 2 mg Q2H PRN INTRACATH 12/22/17 14:15 12/22/17 14:37 (Synthroid) 25 mcg DAILY@0600 PO 12/23/17 06:00 01/07/18 05:06 (Reglan Inj) 5 mg Q8H PRN IV PUSH 12/24/17 17:45 12/27/17 01:50 Pharmacy Profile Note 0 ml @ 0 mls/hr UNSCH OTHER 12/26/17 14:15 (Brethine Inj) 1 mg UNSCH PRN SQ 12/27/17 08:15 Linezolid 300 ml @ 300 mls/hr Q12H IV 12/27/17 15:00 01/09/18 23:00 01/07/18 03:00 (Reglan Inj) 5 mg Q8H IV PUSH 12/28/17 15:00 01/07/18 08:28 (Xanax) 0.5 mg Q8H PRN PO 12/30/17 11:00 01/07/18 08:18 (Pepcid) 20 mg BID PO 01/01/18 21:00 01/07/18 08:18 (Diflucan) 100 mg Q24H PO 01/01/18 11:00 01/08/18 10:59 01/06/18 11:00 (SoluMEDROL INJ) 20 mg Q12H IV PUSH 01/02/18 22:00 01/06/18 22:53 (Levemir Inj) 12 units Q12HR SQ 01/02/18 21:00 01/07/18 08:10 (Lasix Inj) 20 mg BID@09,18 IV PUSH 01/02/18 18:00 01/07/18 08:10 Vancomycin HCl 1250 mg/Sodium Chloride 262.5 ml @ 250 mls/hr Q12H IV 01/03/18 22:00 01/06/18 08:31 (Catapres) 0.1 mg Q8HR PO 01/03/18 22:00 01/07/18 05:06 Miscellaneous Information SPECIFIC LAB TO BE ANABELLA... ONCE ONCE .XX 01/08/18 21:45 01/08/18 21:46 Lines PIV Past Medical History Anxiety Past Surgical History Cholecystectomy Hysterectomy Allergies: Coded Allergies: No Known Allergies (Unverified , 12/15/17) Objective . Vital Signs Date Time Temp Pulse Resp B/P (MAP) Pulse Ox O2 Delivery O2 Flow Rate FiO2 01/08/18 07:38 100 40 01/08/18 06:00 74 01/08/18 04:20 100 40 01/08/18 04:00 73 01/08/18 04:00 98.5 73 16 115/59 (77) 100 01/08/18 04:00 40 01/08/18 02:00 67 01/08/18 01:08 100 40 01/08/18 00:00 40 01/08/18 00:00 98.5 64 17 96/60 (72) 100 4/3/18 00:00 64 01/07/18 22:00 74 01/07/18 20:00 98.8 81 16 109/59 (76) 99 01/07/18 20:00 40 01/07/18 20:00 81 01/07/18 19:24 100 40 01/07/18 18:00 71 01/07/18 16:05 99 40 01/07/18 16:00 98.4 108 15 132/76 (94) 98 01/07/18 16:00 81 01/07/18 16:00 40 01/07/18 16:00 80 01/07/18 14:00 81 01/07/18 12:15 100 40 01/07/18 12:00 40 01/07/18 12:00 108 01/07/18 12:00 98.2 108 15 132/76 (94) 98 01/07/18 10:00 88 . Laboratory Tests Test 01/07/18 05:29 01/08/18 03:37 White Blood Count 17.6 TH/MM3 18.5 TH/MM3 Red Blood Count 4.22 MIL/MM3 4.12 MIL/MM3 Hemoglobin 12.8 GM/DL 12.3 GM/DL Hematocrit 37.4 % 36.5 % Mean Corpuscular Volume 88.5 FL 88.6 FL Mean Corpuscular Hemoglobin 30.2 PG 29.7 PG Mean Corpuscular Hemoglobin Concent 34.1 % 33.6 % Red Cell Distribution Width 13.8 % 13.9 % Platelet Count 377 TH/MM3 332 TH/MM3 Mean Platelet Volume 9.4 FL 9.2 FL Neutrophils (%) (Auto) 73.3 % 92.5 % Lymphocytes (%) (Auto) 19.0 % 4.6 % Monocytes (%) (Auto) 7.0 % 2.7 % Eosinophils (%) (Auto) 0.4 % 0.0 % Basophils (%) (Auto) 0.3 % 0.2 % Neutrophils # (Auto) 12.9 TH/MM3 17.1 TH/MM3 Lymphocytes # (Auto) 3.3 TH/MM3 0.9 TH/MM3 Monocytes # (Auto) 1.2 TH/MM3 0.5 TH/MM3 Eosinophils # (Auto) 0.1 TH/MM3 0.0 TH/MM3 Basophils # (Auto) 0.1 TH/MM3 0.0 TH/MM3 CBC Comment AUTO DIFF DIFF FINAL Differential Comment AUTO DIFF CONFIRMED Platelet Estimate NORMAL Platelet Morphology Comment NORMAL Laboratory Tests Test 01/07/18 05:29 01/08/18 03:37 Blood Urea Nitrogen 35 MG/DL 26 MG/DL Creatinine 0.55 MG/DL 0.43 MG/DL Random Glucose 92 MG/DL 132 MG/DL Total Protein 7.2 GM/DL Albumin 3.1 GM/DL Calcium Level 9.1 MG/DL 9.0 MG/DL Magnesium Level 2.1 MG/DL Alkaline Phosphatase 112 U/L Aspartate Amino Transf (AST/SGOT) 24 U/L Alanine Aminotransferase (ALT/SGPT) 32 U/L Total Bilirubin 0.7 MG/DL Sodium Level 135 MEQ/L 133 MEQ/L Potassium Level 3.8 MEQ/L 4.6 MEQ/L Chloride Level 97 MEQ/L 100 MEQ/L Carbon Dioxide Level 31.1 MEQ/L 22.9 MEQ/L Anion Gap 7 MEQ/L 10 MEQ/L Estimat Glomerular Filtration Rate 119 ML/MIN 158 ML/MIN Imaging Abdomen/Pelvis CT 01/04/18 0000 Signed Impressions: Service Date/Time: Friday, January 05, 2018 00:57 - CONCLUSION: Rectal tube in good position. Some asymmetry of the renal nephrograms the left one being slightly delayed of uncertain etiology. Conceivably pyelonephritis would be within the differential on the left based on the patient's symptoms of leukocytosis. Ravinder Krause MD Chest X-Ray 01/02/18 0600 Signed Impressions: Service Date/Time: Tuesday, January 02, 2018 03:45 - CONCLUSION: 1. Residual patchy densities right upper lobe and left lower lobe. Miguel Lynne MD CT Angiography 12/16/17 0000 Signed Impressions: Service Date/Time: Saturday, December 16, 2017 13:49 - CONCLUSION: 1. Negative for pulmonary emboli. 2. Dense consolidation in the lungs especially the lung bases with several cavitary lesions as above. Findings are most characteristic of pneumonia. Cannot exclude septic embolic disease. No significant effusion. Malachi Hardin MD Chest X-Ray 01/02/18 0600 Signed Impressions: Service Date/Time: Tuesday, January 02, 2018 03:45 - CONCLUSION: 1. Residual patchy densities right upper lobe and left lower lobe. Miguel Lynne MD Chest X-Ray 01/01/18 0600 Signed Impressions: Service Date/Time: Monday, January 01, 2018 02:48 - CONCLUSION: Improved aeration of the right lung with minimal bibasilar densities. Miguel Lnyne MD Physical Exam GENERAL: Awake and following commands, NAD. SKIN: Warm and dry. No rash EYES: non icteric ENT: moist mucosae, no thrush NECK: Tracheostomy site ok CARDIOVASCULAR: HS audible. RESPIRATORY: Coarse BS dominga. Decreased at bases. ABDOMEN: soft , not tender, not distended BS+. PEG tube site ok. EXTREMITIES: Improving edema : clear yellow urine NEUROLOGICAL: Awake, responding. All extremities very weak PSYCHIATRIC: Awake, and cooperative LINE: No evidence of infection Assessment & Plan Remarks IMPRESSION Sepsis present, high grade, on admission, has MRSA on blood cultures - S/P arrest - last (+) BC 12/18 Bilateral pneumonia, some with cavitation - C/S with MRSA - CXR improving Very worrisome for endocarditis - clinically , but JEANINE negative Respiratory failure. - S/P trach - CXR improving Leukocytosis, decreasing Diarrhea, C diff negative x 2 RECOMMENDATION Continue Zyvox - give 14 days - to finish 01/09 Continue IV Vanco - anticipate prob 6 weeks from last (+) BC - anticipated end date 01/27 DC diflucan Start Voriconazole (Aspergillus fumigatus can cause invasive pulm disease and bleeding) Follow cultures Follow clinically. Gardenia Dunham MD Jan 08, 2018 09:56
[2018-01-08] MEDS: methylPREDNISolone SOD SUCC 40 MG/1 ML VIAL IV PUSH SCH (10:00)
[2018-01-08] MEDS: VORICONAZOLE 200 MG TAB PO SCH ×2 (11:55→22:21)
--- NOTE | 2018-01-08 11:57 | HHI.CCPN ---
Subjective Remarks/Hospital Course This is a 47-year-old female with a history of anxiety disorder, that presented to [place] on with complaints of chest pain and dyspnea that has been lasting for the past 4 days. The patient was transferred to [facility]. Imaging and laboratory studies were initially performed which showed a chest x-ray with bilateral patchy airspace consolidation consistent with bronchial pneumonia, and her lactic acid level was noted to be 3.1. The patient's oxygen requirements continue to increase the patient became tachypneic with a respiratory rate in the 40s and tachycardic, heart rate in the 120s. Pulmonology was consulted, CT was performed which revealed no pulmonary emboli , will several cavitary lesions, dense consolidation at both lung bases, air bronchograms and extensive pneumomediastinum extending into the lower neck and upper chest .ICU was requested to see patient. Upon observation the patient was severely dyspneic, with significant accessory muscle movement, violently coughing hemoptysis. Decision made to intubate patient for airway protection. 12/17 Patient is sedated with Diprivan and versed infusion. afebrile. s/p bronch yesterday by Dr. Klein. 12/18 Patient remains sedated with Versed 10mg/hr and Fentanyl 250 mics. Tmax 102.1 yesterday. + MRSA in bronch and GPC/MRSA from [facility] 12/15 from [place] 12/19: Patient developed respiratory distress and SVT this am with vent dyssynchrony with air trapping and elevated peak pressure. FiO2 increased to 100%, started on Nimbex infusion. Intermittently tachycardic, occasional bradycardia also. EKG shows sinus rhythm. Patient is very critical now. Will consult cardiology for JEANINE, and also regarding SVT. Chest x-ray shows worsening bilateral infiltrates concerning for ARDS 12/20: Remains intubated heavily sedated and neuromuscularly paralyzed to maintain ventilator synchrony and control peak pressures. Chest x-ray shows persistent bilateral infiltrates. JEANINE planned for today. All cultures so far positive for MRSA. Tachy Arrhythmia is better controlled after starting sotalol 12/21: CODE BLUE overnight when patient became bradycardic. Received epinephrine with chest compressions with return of spontaneous relief within 5 minutes according to RN. Currently on peripheral dopamine at 10 mcg/kg/min. FiO2 currently at 100%. Chest x-ray revealed worsening diffuse bilateral pulmonary infiltrates 12/22: T-max 101.1 Fahrenheit. Currently 98.9 Fahrenheit. +2493 cc past 24 hours. No bowel movement. Currently on roto-prone bed on epoprostenol at 50, 000 ng/kg/min aerosolized. On tube feeds Glucerna 1.5 at 20 cc an hour. 12/23: Overnight, when switching from supine to prone position patient 32nd episode of asystole resolved without chest compressions. We are currently patient has been prone position again with very slow with and without. Tolerating tube feeds now. Remains on cisatracurium drip at 4 mcg/min 12/24 Patient remains sedated and intubated. On Diprivan, Fentanyl, Versed in addition to Nimbex and Dopamine @5mics. Afebrile. 12/25 No events overnight. Remains sedated, intubated and on Rotoprone bed. On Dopamine 5 mics and Nimbex. T:99.7 12/26: Remains critically ill remains on prone ventilation. I will change on time/supine time to prospectively 5 hours/1 hour cycles. Increase PEEP to 10 to facilitate prolonged weaning. CXR shows persistent consolidation RUL 12/27: Remains critical but oxygenation stable. Off dopamine but hypotensive now with map of 58. Start on Levophed to keep map above 65. Change prone/ supine cycles to 4 hours each. Discontinue prone therapy in the next 24 hours if stable. WBC count is slightly improved 12/28: Transitioned from a prone bed to Roto-Rest today, tolerated well. Remains on Flolan will start weaning today per protocol. Urine output is excellent with Lasix. Remains on Levophed to maintain map above 65. Discontinue Nimbex today 12/29: hypoxia continues to improve. wbc uptrending, although remains afebrile. cultures NGTD. good diuresis. developing metabolic alkalosis most likely from contraction. 12/30: continues to diurese well. off rota-rest bed. on my evaluation today, however, awake and alert, follows commands. cannot lift hands off bed or head off bed at all. severely weak, most likely from critical illness polymyopathy ( prolonged neuromuscular blockade and steroid use). unable to successfully pass SBT. intubation and mechanical ventilation for > 2 weeks. will require tracheostomy to progress care further. 12/31: Status post trach yesterday. Tolerating SBT. Continues to have significant neuromuscular weakness. Attempt 2-4hour T piece today 01/01: Patient more critical today, WBC increased to 29.8. Diarrhea +. Tachycardic, Did not tolerate Tp today. Placed back on vent. ID has started Diflucan. Check repeat C Diff. 01/02: Tolerated 1 hour of T piece today, currently on CPAP. Muscle strength improving 4 out of 5 on exam today. WBC 27.7 today, slightly improved. Urine output excellent. C. difficile negative 2. Tachycardia persist Subjective 01/03: tachycardia somewhat improved. wbc still uptrending. sputum growing mold species, speciation and sensitivities to follow. did tolerate more t-piece time than yesterday. 01/04: wbc still elevated. sputum growing aspergillus. pt doing well on t-piece trials and lasting longer. still very weak and unable to lift hands off bed. patient denies complaints. just on low-dose fentanyl. 01/05: wbc downtrending. continues to lengthen time with t-piece. OOB to stretcher chair. will need long-term acute care level rehab. ROS negative. 01/06: Remains on the vent but tolerating CPAP. Follows commands but weakness persists. No labs today. 01/07: Patient has apnea episodes while she is wide awake. CXR clearing. Will decrease bicarb with diamox and see if respiratory drive improves. 01/08: Currently on full vent support. Will transition to SBT and T-piece as tolerated. Slight increase in white count noted. Muscle strength remains same Objective Vital Signs Date Time Temp Pulse Resp B/P (MAP) Pulse Ox O2 Delivery O2 Flow Rate FiO2 01/08/18 10:17 100 40 01/08/18 10:00 82 01/08/18 08:00 98.4 16 99/52 (68) 01/04/18 12:17 T-piece 5.00 Intake and Output 01/08/18 01/08/18 01/08/18 07:59 15:59 23:59 Intake Total 500 ml Output Total 950 ml Balance -450 ml Result Diagram: 01/08/18 0337 01/08/18 0337 Imaging Last Impressions Chest X-Ray 12/24/17 0600 Signed Impressions: Service Date/Time: Sunday, December 24, 2017 04:53 - CONCLUSION: Persistent dense consolidation right upper lobe and a new small area of consolidation in the left lower lobe. Yomi Lopez MD CT Angiography 12/16/17 0000 Signed Impressions: Service Date/Time: Saturday, December 16, 2017 13:49 - CONCLUSION: 1. Negative for pulmonary emboli. 2. Dense consolidation in the lungs especially the lung bases with several cavitary lesions as above. Findings are most characteristic of pneumonia. Cannot exclude septic embolic disease. No significant effusion. Malachi Hardin MD Objective Remarks GENERAL: 47-year-old female lying in bed. On PRVC/AC SKIN: Warm and dry. HEAD: Normocephalic. Atraumatic. EYES: No scleral icterus. No injection or drainage. ENT: Oral cavity moist NECK: Supple, trachea midline. Trach in place, clean, dry. CARDIOVASCULAR: NL S1S2. No murmurs. No JVD. RESPIRATORY: Good dominga air movement. Bilateral coarse rhonchi and light wheezes. GASTROINTESTINAL: Abdomen soft, non-tender, nondistended. BS active. MUSCULOSKELETAL: No significant peripheral edema. Warm, well perfused. NEURO: Alert awake. follows commands. globally weak, functional quadriparesis. Muscle power slightly improved 3-4 out of 5, in all extremities A/P Problem List: (1) Acute hypoxemic respiratory failure ICD Code: J96.01 - Acute respiratory failure with hypoxia (2) Septic shock due to methicillin resistant Staphylococcus aureus ICD Code: A41.02 - Sepsis due to Methicillin resistant Staphylococcus aureus; R65.21 - Severe sepsis with septic shock (3) Sepsis due to methicillin resistant Staphylococcus aureus (MRSA) ICD Code: A41.02 - Sepsis due to Methicillin resistant Staphylococcus aureus (4) ARDS (adult respiratory distress syndrome) ICD Code: J80 - Acute respiratory distress syndrome (5) Cavitating pneumonia (6) 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 s/p tracheostomy. continue slow vent wean. Neuro/Psych: Critical Illness Polyneuropathy/critical illness myopathy Functional quadriparesis secondary to above Anxiety disorder THC use Minimize sedation Patient will need long-term rehab for CIM/CIP Received IV steroids and neuromuscular blockade for prolonged duration as the patient was extremely hypoxic with severe ARDS requiring prone ventilation Continue aggressive PT/OT. Up to chair daily Acetaminophen 650 mg liquid by tube every 6 hours as needed fever Respiratory: Acute hypoxemic respiratory failure status post tracheostomy Severe ARDS-improving Small right Pneumothorax Pneumomediastinum Hemoptysis by history Pulmonary cavitary lesions CPAP daily TP, increase TP time daily, s/p prone ventilation. s/p trach 12/30/17 Ventilator bundle. Albuterol/ipratropium aerosols every 4 hours with albuterol aerosols every 2 hours as needed dyspnea Budesonide 0.5/2 1 inhalation twice daily Methylprednisolone succinate 20 mg IV every 8 hours-changed to prednisone 20 mg daily s/p flolan 12/16 -CT Angio - extensive pneumomediastinum extending into neck and upper chest. Dense consolidation at both lung bases, air bronchograms , 2 cavitary lesions 12/16-bronchoscopy performed by Dr. Klein, no active sites noted for bleeding, moderate purulent mucus bilaterally noted 2 BAL samples sent CTS has followed for Pneumomediastinum-per Dr. Guadarrama no intervention at this time. Dr. Mireles pulmonology following Started Diamox 500 daily X 3. / Cardiovascular: Septic shock- resolved. Bradycardic arrest- resolved. Paroxysmal atrial fibrillation- resolved, no in NSR SVT- resolved. Probable infective endocarditis Elevated troponin- resolved. off vasopressors. On sotalol 40 mg twice daily by Dr. Bray 12/19 Tachycardic, will not add AV kareem blockers secondary to bradycardic arrest Transesophageal echocardiogram 12/20 revealed no signs of endocarditis. Preserved LV function. Trace MR/TR Echo 12/17 showed EF 60-65%. Echo 12/21 EF 50%. Cannot rule out regional wall motion and ability Troponin 1.26 from 3.4 and downward trending Aspirin 81 mg p.o. daily FEN/Renal: Hypernatremia- resolved. Acute intravascular volume overload- persistent. Monitor renal function Electrolytes replacement per protocol. Continue Lasix reduce to 20mg Q12. Diuresis to dry weight. Diamox as above GI: Elevated AST and alkaline phosphatase - improving. Hypoalbuminemia Acute protein calorie malnutrition - moderate On tube feeds-Glucerna 1.5 with goal rate 55ml/hr Famotidine 20 mg twice daily GI prophylaxis Docusate sodium/senna 1 tablet twice daily for bowel regimen Having bowel movements. Speech following ID: MRSA Bacteremia MRSA pneumonia Worsening sepsis leukocytosis Shahnaz UTI Septic shock- resolved. Continue Zyvox to finish 01/09 Continue IV Vanco anticipated end date 01/27 per ID DC diflucan, and Voriconazole started for Aspergillus fumigatus repeat C. difficile neg Panculture follow up ceftaroline Dcd 12/27/17. Cubicin DCd 12/26 by ID JEANINE revealed no signs of endocarditis 12/20 12/15 [facility] from [place]- MRSA 12/16 Bronch BAL- MRSA [facility] 12/16, 12/17 12/18: MRSA Blood culture 12/19 no growth 12/20 sputum/12/21 BAL MRSA influenza, pneumococcal and Legionella antigens- Negative Sputum 01/01 Aspergillus fumigatus Heme: Leukocytosis Normocytic anemia Monitor CBC. 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 Sliding scale insulin Accu-Cheks every 6 hours to maintain euglycemia/medium regimen. Levemir to 12 units every 12 01/02. Low free T3 and T4 on levothyroxine 25 mcg daily with low T4. 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 Its more appropriate to work up when she is over the critical illness Prophylaxis: GI Prophylaxis Famotidine IV DVT Prophylaxis -- SCDs -heparin SQ Overall impression: Muscle wasting and weight loss, protein calorie malnutrition. s.p PEG 01/07. Maribel Pal MD Jan 08, 2018 11:57
--- NOTE | 2018-01-08 12:05 | HHI.GIFU ---
Subjective Remarks Pt resting in bed Awake and able to answer yes and no questions Minimal pain around PEG site PEG site with scant amount of dried blood, gauze is clean and dry, currently clamped Dignishield for diarrhea (Alba Boogie) Objective Vitals I&O Vital Signs Date Time Temp Pulse Resp B/P (MAP) Pulse Ox O2 Delivery O2 Flow Rate FiO2 01/08/18 10:17 100 40 01/08/18 10:17 40 01/08/18 10:15 40 01/08/18 10:00 82 01/08/18 08:00 74 01/08/18 08:00 40 01/08/18 08:00 98.4 74 16 99/52 (68) 100 01/08/18 07:38 100 40 01/08/18 06:00 74 01/08/18 04:20 100 40 01/08/18 04:00 73 01/08/18 04:00 98.5 73 16 115/59 (77) 100 01/08/18 04:00 40 01/08/18 02:00 67 01/08/18 01:08 100 40 01/08/18 00:00 40 01/08/18 00:00 98.5 64 17 96/60 (72) 100 01/08/18 00:00 64 01/07/18 22:00 74 01/07/18 20:00 98.8 81 16 109/59 (76) 99 01/07/18 20:00 40 01/07/18 20:00 81 01/07/18 19:24 100 40 01/07/18 18:00 71 01/07/18 16:05 99 40 01/07/18 16:00 98.4 108 15 132/76 (94) 98 01/07/18 16:00 81 01/07/18 16:00 40 01/07/18 16:00 80 01/07/18 14:00 81 01/07/18 12:15 100 40 I/O 01/07/18 01/07/18 01/07/18 01/08/18 01/08/18 01/08/18 07:00 15:00 23:00 07:00 15:00 23:00 Intake Total 420 ml 532.5 ml 3082.5 ml 500 ml Output Total 1400 ml 1900 ml 950 ml Balance -980 ml 532.5 ml 1182.5 ml -450 ml IV Total 300 ml 432.5 ml 3082.5 ml 300 ml Tube Feeding 0 ml 0 ml Other 120 ml 100 ml 0 ml 200 ml Output Urine Total 1200 ml 1650 ml 750 ml Stool Total 200 ml 250 ml 200 ml Laboratory Laboratory Tests Test 01/08/18 03:37 White Blood Count 18.5 Red Blood Count 4.12 Hemoglobin 12.3 Hematocrit 36.5 Mean Corpuscular Volume 88.6 Mean Corpuscular Hemoglobin 29.7 Mean Corpuscular Hemoglobin Concent 33.6 Red Cell Distribution Width 13.9 Platelet Count 332 Mean Platelet Volume 9.2 Neutrophils (%) (Auto) 92.5 Lymphocytes (%) (Auto) 4.6 Monocytes (%) (Auto) 2.7 Eosinophils (%) (Auto) 0.0 Basophils (%) (Auto) 0.2 Neutrophils # (Auto) 17.1 Lymphocytes # (Auto) 0.9 Monocytes # (Auto) 0.5 Eosinophils # (Auto) 0.0 Basophils # (Auto) 0.0 CBC Comment DIFF FINAL Differential Comment Blood Urea Nitrogen 26 Creatinine 0.43 Random Glucose 132 Calcium Level 9.0 Sodium Level 133 Potassium Level 4.6 Chloride Level 100 Carbon Dioxide Level 22.9 Anion Gap 10 Estimat Glomerular Filtration Rate 158 Date/Time Source Procedure Growth Status 01/01/18 15:53 Blood Peripheral Aerobic Blood Culture - Final NO GROWTH IN 5 DAYS Complete 01/01/18 15:53 Blood Peripheral Anaerobic Blood Culture - Final NO GROWTH IN 5 DAYS Complete 01/01/18 16:30 Sputum Endotracheal Gram Stain - Final Complete 01/01/18 16:30 Sputum Culture - Final Aspergillus Fumigatus Complete 01/01/18 14:30 Urine Catheterized Urine Urine Culture - Final NO GROWTH IN 48 HOURS. Complete Imaging Last Impressions Chest X-Ray 01/07/18 0600 Signed Impressions: Service Date/Time: Sunday, January 07, 2018 03:17 - CONCLUSION: Interval Central line removal. Stable aeration. Demarco Gupta MD Abdomen/Pelvis CT 01/04/18 0000 Signed Impressions: Service Date/Time: Friday, January 05, 2018 00:57 - CONCLUSION: Rectal tube in good position. Some asymmetry of the renal nephrograms the left one being slightly delayed of uncertain etiology. Conceivably pyelonephritis would be within the differential on the left based on the patient's symptoms of leukocytosis. Ravinder Krause MD CT Angiography 12/16/17 0000 Signed Impressions: Service Date/Time: Saturday, December 16, 2017 13:49 - CONCLUSION: 1. Negative for pulmonary emboli. 2. Dense consolidation in the lungs especially the lung bases with several cavitary lesions as above. Findings are most characteristic of pneumonia. Cannot exclude septic embolic disease. No significant effusion. Malachi Hardin MD Physical Exam HEENT: Normocephalic; atraumatic CHEST: Even/unlabored CARDIAC: RRR ABDOMEN: Soft, nondistended, minimal tenderness around PEG site, bowel sounds active SKIN: Normal; no rash; no jaundice. SAILING MASTER: Awake, able to answer yes, no questions (Alba Boogie) Assessment and Plan Plan ASSESSMENT - dysphagia, need for associate manager mech ventilation - 47 year old female who presented with chest pain and SOB and was found to have bronchopneumonia with severe cavitary lesions, intubated and requiring time in rotaprone bed. s/p trach, off rotaprone. pt is agreeable to proceed with PEG tube (01/08) --> Pt S/P PEG placement yesterday --> Mild gastritis, succesful PEG placement. Site with scant amount of dried blood today, gauze is clean and dry, PEG clamped. PLAN - Glucerna 1.5 with goal rate 60 mL/hr x 22 hours per nutrition recommendations - Flush PEG every 6 hours - GI will sign off, please reconsult as needed Pt has been seen and examined by myself and Linda Clinton and this note is written on his behalf (Alba Boogie) Physician Comments Seen and examined with CELL MANAGER, s/p peg. Use for feedings as tolerated. Flush with water Q shift. GI will sign off. Thank you (Amita Torres MD) Alba Boogie Jan 08, 2018 12:05 Amita Torres MD Jan 08, 2018 14:27
[2018-01-08] MEDS ORDERED: PHARMACY ORDERED LAB ONE (21:45)
[2018-01-08] MEDS: fentaNYL DRIP 250 ML IV PRN (22:21)
[2018-01-09] VITALS (18 sets, daily range): BP systolic 99–112; BP diastolic 50–54; PULSE 70–111; RESP 9–26; TEMP 98.2–99.5; O2SAT 94–100
[2018-01-09] MEDS: LINEZOLID 600 MG PREMIX 300 ML IV SCH ×2 (03:57→16:05)
[2018-01-09] MEDS: CHLORHEXIDINE GLUCONATE 2 % 1 PACK (2 CLOTHS) TOP SCH (03:57)
[2018-01-09] MEDS: LEVOTHYROXINE SODIUM 25 MCG TAB PO SCH (05:51)
[2018-01-09] MEDS: INSULIN NovoLIN REGULAR SUPPLEMENTAL SCALE SQ SCH ×4 (05:52→23:02)
[2018-01-09] MEDS: cloNIDine HCL 0.1 MG TAB PO SCH ×3 (05:52→21:53)
[2018-01-09] MEDS: METOCLOPRAMIDE HCL 10 MG/2 ML VIAL IV PUSH SCH ×3 (05:52→23:02)
[2018-01-09] MEDS: RESP: BUDESONIDE 0.5 MG/2 ML NEB NEB SCH ×2 (07:40→19:38)
[2018-01-09] MEDS: CHLORHEXIDINE 0.12% (ORAL KIT) 15 ML CUP MT SCH ×2 (07:56→19:59)
[2018-01-09] MEDS: MUPIROCIN 2% OINT 1 APPLIC/GM SYR EACH NARE SCH ×2 (07:57→20:02)
[2018-01-09] MEDS: ASPIRIN 81 MG CHEW TAB CHEW SCH (07:57)
[2018-01-09] MEDS: ARTIFICIAL TEARS OPTH OINT 3.5 APPLIC/3.5 GM TUBO EACH EYE SCH ×2 (07:57→20:01)
[2018-01-09] MEDS: SODIUM CHLORIDE 0.9% FLUSH 10 ML FLUSH IV FLUSH SCH ×3 (07:57→20:03)
[2018-01-09] MEDS: FAMOTIDINE 20 MG TAB PO SCH ×2 (07:58→20:03)
[2018-01-09] MEDS: INSULIN DETEMIR 100 UNITS/ML VIAL SQ SCH ×2 (07:58→20:03)
[2018-01-09] MEDS: VORICONAZOLE 200 MG TAB PO SCH ×2 (07:58→20:03)
[2018-01-09] MEDS: FUROSEMIDE 20 MG/2 ML VIAL IV PUSH SCH (07:58)
[2018-01-09] MEDS: fentaNYL DRIP 250 ML IV PRN (08:40)
[2018-01-09] MEDS: REMOVE OLD DURAGESIC (FENTANYL) PATCH T-DERMAL SCH (09:00)
--- NOTE | 2018-01-09 09:30 | HHI.CCPN ---
Subjective Remarks/Hospital Course This is a 47-year-old female with a history of anxiety disorder, that presented to [place] on with complaints of chest pain and dyspnea that has been lasting for the past 4 days. The patient was transferred to [facility]. Imaging and laboratory studies were initially performed which showed a chest x-ray with bilateral patchy airspace consolidation consistent with bronchial pneumonia, and her lactic acid level was noted to be 3.1. The patient's oxygen requirements continue to increase the patient became tachypneic with a respiratory rate in the 40s and tachycardic, heart rate in the 120s. Pulmonology was consulted, CT was performed which revealed no pulmonary emboli , will several cavitary lesions, dense consolidation at both lung bases, air bronchograms and extensive pneumomediastinum extending into the lower neck and upper chest .ICU was requested to see patient. Upon observation the patient was severely dyspneic, with significant accessory muscle movement, violently coughing hemoptysis. Decision made to intubate patient for airway protection. 12/17 Patient is sedated with Diprivan and versed infusion. afebrile. s/p bronch yesterday by Dr. Klein. 12/18 Patient remains sedated with Versed 10mg/hr and Fentanyl 250 mics. Tmax 102.1 yesterday. + MRSA in bronch and GPC/MRSA from [facility] 12/15 from [place] 12/19: Patient developed respiratory distress and SVT this am with vent dyssynchrony with air trapping and elevated peak pressure. FiO2 increased to 100%, started on Nimbex infusion. Intermittently tachycardic, occasional bradycardia also. EKG shows sinus rhythm. Patient is very critical now. Will consult cardiology for JEANINE, and also regarding SVT. Chest x-ray shows worsening bilateral infiltrates concerning for ARDS 12/20: Remains intubated heavily sedated and neuromuscularly paralyzed to maintain ventilator synchrony and control peak pressures. Chest x-ray shows persistent bilateral infiltrates. JEANINE planned for today. All cultures so far positive for MRSA. Tachy Arrhythmia is better controlled after starting sotalol 12/21: CODE BLUE overnight when patient became bradycardic. Received epinephrine with chest compressions with return of spontaneous relief within 5 minutes according to RN. Currently on peripheral dopamine at 10 mcg/kg/min. FiO2 currently at 100%. Chest x-ray revealed worsening diffuse bilateral pulmonary infiltrates 12/22: T-max 101.1 Fahrenheit. Currently 98.9 Fahrenheit. +2493 cc past 24 hours. No bowel movement. Currently on roto-prone bed on epoprostenol at 50, 000 ng/kg/min aerosolized. On tube feeds Glucerna 1.5 at 20 cc an hour. 12/23: Overnight, when switching from supine to prone position patient 32nd episode of asystole resolved without chest compressions. We are currently patient has been prone position again with very slow with and without. Tolerating tube feeds now. Remains on cisatracurium drip at 4 mcg/min 12/24 Patient remains sedated and intubated. On Diprivan, Fentanyl, Versed in addition to Nimbex and Dopamine @5mics. Afebrile. 12/25 No events overnight. Remains sedated, intubated and on Rotoprone bed. On Dopamine 5 mics and Nimbex. T:99.7 12/26: Remains critically ill remains on prone ventilation. I will change on time/supine time to prospectively 5 hours/1 hour cycles. Increase PEEP to 10 to facilitate prolonged weaning. CXR shows persistent consolidation RUL 12/27: Remains critical but oxygenation stable. Off dopamine but hypotensive now with map of 58. Start on Levophed to keep map above 65. Change prone/ supine cycles to 4 hours each. Discontinue prone therapy in the next 24 hours if stable. WBC count is slightly improved 12/28: Transitioned from a prone bed to Roto-Rest today, tolerated well. Remains on Flolan will start weaning today per protocol. Urine output is excellent with Lasix. Remains on Levophed to maintain map above 65. Discontinue Nimbex today 12/29: hypoxia continues to improve. wbc uptrending, although remains afebrile. cultures NGTD. good diuresis. developing metabolic alkalosis most likely from contraction. 12/30: continues to diurese well. off rota-rest bed. on my evaluation today, however, awake and alert, follows commands. cannot lift hands off bed or head off bed at all. severely weak, most likely from critical illness polymyopathy ( prolonged neuromuscular blockade and steroid use). unable to successfully pass SBT. intubation and mechanical ventilation for > 2 weeks. will require tracheostomy to progress care further. 12/31: Status post trach yesterday. Tolerating SBT. Continues to have significant neuromuscular weakness. Attempt 2-4hour T piece today 01/01: Patient more critical today, WBC increased to 29.8. Diarrhea +. Tachycardic, Did not tolerate Tp today. Placed back on vent. ID has started Diflucan. Check repeat C Diff. 01/02: Tolerated 1 hour of T piece today, currently on CPAP. Muscle strength improving 4 out of 5 on exam today. WBC 27.7 today, slightly improved. Urine output excellent. C. difficile negative 2. Tachycardia persist Subjective 01/03: tachycardia somewhat improved. wbc still uptrending. sputum growing mold species, speciation and sensitivities to follow. did tolerate more t-piece time than yesterday. 01/04: wbc still elevated. sputum growing aspergillus. pt doing well on t-piece trials and lasting longer. still very weak and unable to lift hands off bed. patient denies complaints. just on low-dose fentanyl. 01/05: wbc downtrending. continues to lengthen time with t-piece. OOB to stretcher chair. will need long-term acute care level rehab. ROS negative. 01/06: Remains on the vent but tolerating CPAP. Follows commands but weakness persists. No labs today. 01/07: Patient has apnea episodes while she is wide awake. CXR clearing. Will decrease bicarb with Diamox and see if respiratory drive improves. 01/08: Currently on full vent support. Will transition to SBT and T-piece as tolerated. Slight increase in white count noted. Muscle strength remains same 01/09: Remains on the ventilator, tolerated T piece for 7 hours yesterday. Appears more awake alert today. Muscle strength stable. No fever Objective Vital Signs Date Time Temp Pulse Resp B/P (MAP) Pulse Ox O2 Delivery O2 Flow Rate FiO2 01/09/18 07:41 95 T-piece 7.00 40 01/09/18 06:00 82 01/09/18 04:00 98.2 10 100/53 (69) Intake and Output 01/09/18 01/09/18 01/10/18 08:00 16:00 00:00 Intake Total 964.5 ml Output Total 725 ml Balance 239.5 ml Result Diagram: 01/08/18 0337 01/08/18 0337 Imaging Last Impressions Chest X-Ray 12/24/17 0600 Signed Impressions: Service Date/Time: Sunday, December 24, 2017 04:53 - CONCLUSION: Persistent dense consolidation right upper lobe and a new small area of consolidation in the left lower lobe. Yomi Lopez MD CT Angiography 12/16/17 0000 Signed Impressions: Service Date/Time: Saturday, December 16, 2017 13:49 - CONCLUSION: 1. Negative for pulmonary emboli. 2. Dense consolidation in the lungs especially the lung bases with several cavitary lesions as above. Findings are most characteristic of pneumonia. Cannot exclude septic embolic disease. No significant effusion. Malachi Hardin MD Objective Remarks GENERAL: 47-year-old female lying in bed. On PRVC/AC SKIN: Warm and dry. HEAD: Normocephalic. Atraumatic. EYES: No scleral icterus. No injection or drainage. ENT: Oral cavity moist NECK: Supple, trachea midline. Trach in place, clean, dry. CARDIOVASCULAR: NL S1S2. No murmurs. No JVD. RESPIRATORY: Good dominga air movement. Bilateral coarse rhonchi, improved GASTROINTESTINAL: Abdomen soft, non-tender, nondistended. BS active. MUSCULOSKELETAL: No significant peripheral edema. Warm, well perfused. NEURO: Alert awake. follows commands. globally weak, functional quadriparesis. Muscle power slightly improved 3-4 out of 5, in all extremities A/P Problem List: (1) Acute hypoxemic respiratory failure ICD Code: J96.01 - Acute respiratory failure with hypoxia (2) Septic shock due to methicillin resistant Staphylococcus aureus ICD Code: A41.02 - Sepsis due to Methicillin resistant Staphylococcus aureus; R65.21 - Severe sepsis with septic shock (3) Sepsis due to methicillin resistant Staphylococcus aureus (MRSA) ICD Code: A41.02 - Sepsis due to Methicillin resistant Staphylococcus aureus (4) ARDS (adult respiratory distress syndrome) ICD Code: J80 - Acute respiratory distress syndrome (5) Cavitating pneumonia (6) 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 s/p tracheostomy. continue slow vent wean. Neuro/Psych: Critical Illness Polyneuropathy/critical illness myopathy Functional quadriparesis secondary to above Anxiety disorder THC use Minimize sedation. Discontinue fentanyl infusion, start fentanyl patch 100 mcg/ h Patient will need long-term rehab for CIM/CIP Received IV steroids and neuromuscular blockade for prolonged duration as the patient was extremely hypoxic with severe ARDS requiring prone ventilation Continue aggressive PT/OT. Up to chair daily Acetaminophen 650 mg liquid by tube every 6 hours as needed fever Respiratory: Acute hypoxemic respiratory failure status post tracheostomy Severe ARDS-resolved Small right Pneumothorax/Pneumomediastinum Hemoptysis by history Pulmonary cavitary lesions CPAP daily TP, increase TP time daily -12-14 hours today s/p prone ventilation. s/p flolan s/p trach 12/30/17 Ventilator bundle. Albuterol/ipratropium aerosols every 4 hours with albuterol aerosols every 2 hours as needed dyspnea Budesonide 0.5/2 1 inhalation twice daily Methylprednisolone succinate 20 mg IV every 8 hours-changed to prednisone 20 mg daily 12/16 -CT Angio - extensive pneumomediastinum extending into neck and upper chest. Dense consolidation at both lung bases, air bronchograms , 2 cavitary lesions 12/16-bronchoscopy performed by Dr. Klein, no active sites noted for bleeding, moderate purulent mucus bilaterally noted 2 BAL samples sent CTS has followed for Pneumomediastinum-per Dr. Guadarrama no intervention at this time. Dr. Mireles pulmonology following Diamox 500 daily X 3 from 01/07 Cardiovascular: Septic shock- resolved. Bradycardic arrest- resolved. Paroxysmal atrial fibrillation- resolved, no in NSR SVT- resolved. Probable infective endocarditis Elevated troponin- resolved. off vasopressors. On sotalol 40 mg twice daily by Dr. Bray 12/19 Tachycardic, will not add AV kareem blockers secondary to bradycardic arrest Transesophageal echocardiogram 12/20 revealed no signs of endocarditis. Preserved LV function. Trace MR/TR Echo 12/17 showed EF 60-65%. Echo 12/21 EF 50%. Cannot rule out regional wall motion and ability Troponin 1.26 from 3.4 and downward trending Aspirin 81 mg p.o. daily FEN/Renal: Hypernatremia- resolved. Acute intravascular volume overload- persistent. Monitor renal function Electrolytes replacement per protocol. Continue Lasix reduce to 20mg Q12. Diuresis to dry weight. Diamox as above GI: Elevated AST and alkaline phosphatase - improving. Hypoalbuminemia Acute protein calorie malnutrition - moderate On tube feeds-Glucerna 1.5 with goal rate 55ml/hr Famotidine 20 mg twice daily GI prophylaxis Docusate sodium/senna 1 tablet twice daily for bowel regimen Having bowel movements. ID: MRSA Bacteremia MRSA pneumonia Worsening sepsis leukocytosis Shahnaz UTI Septic shock- resolved. Continue Zyvox to finish 01/09. Continue IV Vanco anticipated end date 01/27 per ID DC diflucan, and Voriconazole started for Aspergillus fumigatus 01/08 repeat C. difficile neg Panculture follow up ceftaroline Dcd 12/27/17. Cubicin DCd 12/26 by ID JEANINE revealed no signs of endocarditis 12/20 12/15 BC from [place]- MRSA 12/16 Bronch BAL- MRSA BC 12/16, 12/17 12/18: MRSA Blood culture 12/19 no growth 12/20 sputum/12/21 BAL MRSA influenza, pneumococcal and Legionella antigens- Negative Sputum 01/01 Aspergillus fumigatus Heme: Leukocytosis Normocytic anemia Monitor CBC. 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 Sliding scale insulin Accu-Cheks every 6 hours to maintain euglycemia/medium regimen. Levemir to 12 units every 12 01/02. Low free T3 and T4 on levothyroxine 25 mcg daily with low T4. 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 Its more appropriate to work up when she is over the critical illness Prophylaxis: GI Prophylaxis Famotidine IV DVT Prophylaxis -- SCDs -heparin SQ Overall impression: Muscle wasting and weight loss, protein calorie malnutrition. s.p PEG 01/07. Level 2 Maribel Pal MD Jan 09, 2018 09:30
--- NOTE | 2018-01-09 10:33 | HHI.IDPN ---
Subjective Subjective Remarks ID Xcover for . Chart reviewed. Patient is a 47-year-old female, who initially presented to [facility] ED complaining of 4 day history of chest pain and shortness of breath. In have any other history. She was apparently coughing and was bringing up some brownish phlegm. There was no mention of any fever or chills. No nausea or vomiting. No urinary complaints. Chest x-ray showed bilateral patchy basilar infiltrates. CTA did not show any pulmonary embolism, showed bilateral infiltrates with some cavitary lesions noted. She was transferred to the main hospital, and she apparently had some blood in the sputum. She ended up getting intubated. [facility] did bronchoscopy on her. Patient currently sedated postintubation. Her blood pressure is okay and she is not hypotensive. She is tachycardic. Infectious disease consultation has been requested to evaluate the patient with pneumonia dw RN s/p trach and PEG. On Fentanyl. Wide awake and following commands. Temps ok BP ok Plan for longer duration CPAP trials today Weaning difficulty due to her anxiety level WBC decreasing CXR stable Tolerating TF Antibiotics vanco IV zyvox - to finish 01/09 Diflucan - to finsh today Current Medications Current Medications Medications (Trade) Dose Ordered Sig/Marily Route Start Time Stop Time Status Last Admin (NS Flush) 2 ml UNSCH PRN IV FLUSH 12/15/17 22:30 (NS Flush) 2 ml BID IV FLUSH 12/16/17 09:00 01/09/18 07:57 (Robitussin Dm 200-20 Mg/10 ml Liq) 10 ml Q4H PRN PO 12/15/17 22:30 Future Hold (Heparin Inj) 5,000 units Q8H SQ 12/16/17 12:00 Future Hold 01/06/18 11:01 (Morphine Inj) 1 mg Q4H PRN IM 12/16/17 09:15 Future Hold 12/16/17 10:11 (Mucinex Er) 600 mg BID PO 12/16/17 09:15 Future Hold 12/16/17 10:51 Fentanyl Citrate 250 ml @ 5 mls/hr TITRATE PRN IV 12/16/17 16:30 01/09/18 12:00 01/09/18 08:40 Miscellaneous Information 1 Q361D XX 12/16/17 16:45 (Chlorhexidine 2% Cloth) 3 pack Taper DAILY@04 TOP 12/17/17 04:00 12/13/18 03:59 01/08/18 03:50 (Chlorhexidine 2% Cloth) 3 pack UNSCH PRN TOP 12/16/17 16:45 (Milk Of Magnesia Liq) 30 ml Q12H PRN PO 12/16/17 16:45 (Senokot) 17.2 mg Q12H PRN PO 12/16/17 16:45 12/28/17 08:39 (Dulcolax Supp) 10 mg DAILY PRN RECTAL 12/16/17 16:45 (Lactulose Liq) 30 ml DAILY PRN PO 12/16/17 16:45 (Peridex 0.12% Liq) 15 ml BID@08,20 MT 12/16/17 20:00 01/09/18 07:56 Potassium Chloride 100 ml @ 50 mls/hr Q2H PRN IV 12/17/17 07:45 12/31/17 09:33 Potassium Chloride 100 ml @ 50 mls/hr Q2H PRN IV 12/17/17 07:45 (K-Lyte Cl Eff) 50 meq UNSCH PRN PO 12/17/17 07:45 Potassium Chloride 100 ml @ 25 mls/hr UNSCH PRN IV 12/17/17 07:45 01/01/18 07:03 Potassium Chloride 100 ml @ 50 mls/hr Q2H PRN IV 12/17/17 07:45 Magnesium Sulfate 4 gm/Sodium Chloride 100 ml @ 50 mls/hr UNSCH PRN IV 12/17/17 07:45 (Mag-Ox) 800 mg UNSCH PRN PO 12/17/17 07:45 Magnesium Sulfate 2 gm/Sodium Chloride 100 ml @ 50 mls/hr UNSCH PRN IV 12/17/17 07:45 (K-Phos) 2,000 mg Q4H PRN PO 12/17/17 07:45 12/17/17 23:49 Sodium Phosphate 30 mmol/Sodium Chloride 250 ml @ 42 mls/hr UNSCH PRN IV 12/17/17 07:45 12/18/17 08:40 (K-Phos) 2,000 mg UNSCH PRN PO/TUBE 12/17/17 07:45 Potassium Phosphate 30 mmol/ Sodium Chloride 260 ml @ 42 mls/hr UNSCH PRN IV 12/17/17 07:45 12/19/17 07:57 (Albuterol Neb) 2.5 mg Q2HR NEB PRN NEB 12/21/17 08:30 01/08/18 07:38 (Pulmicort Respule Neb) 0.5 mg Q12HR NEB NEB 12/21/17 20:00 01/09/18 07:40 (NS Flush) DAILY IV FLUSH 12/22/17 09:00 01/09/18 07:57 (NS Flush) UNSCH PRN IV FLUSH 12/21/17 09:15 12/28/17 21:22 (Bactroban Nasal 2% Oint) Taper BID EACH NARE 12/21/17 21:00 12/17/18 20:59 01/06/18 22:53 (Lacrilube Opht Oint) 1 applic Q12HR EACH EYE 12/21/17 10:00 01/09/18 07:57 (D50w (Vial) Inj) 50 ml UNSCH PRN IV PUSH 12/21/17 09:15 (Glucagon Inj) 1 mg UNSCH PRN OTHER 12/21/17 09:15 (NovoLIN R SUPPLEMENTAL SCALE) 1 Q6HR SQ 12/21/17 12:00 01/08/18 18:40 (Tylenol 650 Mg/ 20 ml Liq) 650 mg Q6H PRN NG 12/21/17 09:30 01/02/18 08:21 (Pill Splitter) 1 ea UNSCH PRN OTHER 12/21/17 21:00 (Aspirin Chew) 81 mg DAILY CHEW 12/22/17 09:00 01/09/18 07:57 (Cathflo Activase Inj) 2 mg Q2H PRN INTRACATH 12/22/17 14:15 12/22/17 14:37 (Synthroid) 25 mcg DAILY@0600 PO 12/23/17 06:00 01/09/18 05:51 (Reglan Inj) 5 mg Q8H PRN IV PUSH 12/24/17 17:45 12/27/17 01:50 Pharmacy Profile Note 0 ml @ 0 mls/hr UNSCH OTHER 12/26/17 14:15 (Brethine Inj) 1 mg UNSCH PRN SQ 12/27/17 08:15 Linezolid 300 ml @ 300 mls/hr Q12H IV 12/27/17 15:00 01/09/18 23:00 01/09/18 03:57 (Reglan Inj) 5 mg Q8H IV PUSH 12/28/17 15:00 01/09/18 05:52 (Xanax) 0.5 mg Q8H PRN PO 12/30/17 11:00 01/08/18 22:21 (Pepcid) 20 mg BID PO 01/01/18 21:00 01/09/18 07:58 (Levemir Inj) 12 units Q12HR SQ 01/02/18 21:00 01/09/18 07:58 Vancomycin HCl 1250 mg/Sodium Chloride 262.5 ml @ 250 mls/hr Q12H IV 01/03/18 22:00 01/08/18 23:46 (Catapres) 0.1 mg Q8HR PO 01/03/18 22:00 01/07/18 05:06 (Lasix Inj) 20 mg DAILY IV PUSH 01/08/18 09:00 01/09/18 07:58 (Diamox Inj) 500 mg DAILY IV PUSH 01/07/18 11:00 01/10/18 13:00 01/09/18 07:57 (Vfend) 200 mg Q12HR PO 01/08/18 11:00 01/09/18 07:58 (Duragesic 100 Mcg Patch.72 Hr) 1 patch Q3D T-DERMAL 01/09/18 09:00 Miscellaneous Information 1 Q3D T-DERMAL 01/09/18 09:00 Lines PIV Past Medical History Anxiety Past Surgical History Cholecystectomy Hysterectomy Allergies: Coded Allergies: No Known Allergies (Unverified , 12/15/17) Objective . Vital Signs Date Time Temp Pulse Resp B/P (MAP) Pulse Ox O2 Delivery O2 Flow Rate FiO2 01/09/18 07:41 95 T-piece 7.00 40 01/09/18 06:00 82 01/09/18 04:17 99 40 01/09/18 04:00 98.2 76 10 100/53 (69) 100 01/09/18 04:00 40 01/09/18 04:00 76 01/09/18 02:00 75 01/09/18 00:24 99 40 01/09/18 00:00 40 01/09/18 00:00 70 01/09/18 00:00 98.4 70 9 106/54 (71) 100 01/08/18 23:44 40 01/08/18 23:33 100 40 01/08/18 23:00 40 01/08/18 22:00 78 01/08/18 20:00 98.5 70 13 107/56 (73) 100 01/08/18 20:00 70 01/08/18 19:40 100 T-piece 6.00 40 01/08/18 18:00 75 01/08/18 16:00 98.4 91 18 112/58 (76) 100 01/08/18 16:00 100 T-piece 6.00 40 01/08/18 16:00 91 01/08/18 14:00 88 01/08/18 13:03 99 40 01/08/18 12:00 102 01/08/18 12:00 98.6 102 13 117/56 (76) 98 01/08/18 12:00 40 . Laboratory Tests Test 01/08/18 03:37 White Blood Count 18.5 TH/MM3 Red Blood Count 4.12 MIL/MM3 Hemoglobin 12.3 GM/DL Hematocrit 36.5 % Mean Corpuscular Volume 88.6 FL Mean Corpuscular Hemoglobin 29.7 PG Mean Corpuscular Hemoglobin Concent 33.6 % Red Cell Distribution Width 13.9 % Platelet Count 332 TH/MM3 Mean Platelet Volume 9.2 FL Neutrophils (%) (Auto) 92.5 % Lymphocytes (%) (Auto) 4.6 % Monocytes (%) (Auto) 2.7 % Eosinophils (%) (Auto) 0.0 % Basophils (%) (Auto) 0.2 % Neutrophils # (Auto) 17.1 TH/MM3 Lymphocytes # (Auto) 0.9 TH/MM3 Monocytes # (Auto) 0.5 TH/MM3 Eosinophils # (Auto) 0.0 TH/MM3 Basophils # (Auto) 0.0 TH/MM3 CBC Comment DIFF FINAL Differential Comment Laboratory Tests Test 01/08/18 03:37 Blood Urea Nitrogen 26 MG/DL Creatinine 0.43 MG/DL Random Glucose 132 MG/DL Calcium Level 9.0 MG/DL Sodium Level 133 MEQ/L Potassium Level 4.6 MEQ/L Chloride Level 100 MEQ/L Carbon Dioxide Level 22.9 MEQ/L Anion Gap 10 MEQ/L Estimat Glomerular Filtration Rate 158 ML/MIN Imaging Abdomen/Pelvis CT 01/04/18 0000 Signed Impressions: Service Date/Time: Friday, January 05, 2018 00:57 - CONCLUSION: Rectal tube in good position. Some asymmetry of the renal nephrograms the left one being slightly delayed of uncertain etiology. Conceivably pyelonephritis would be within the differential on the left based on the patient's symptoms of leukocytosis. Ravinder Krause MD Chest X-Ray 01/02/18599 Signed Impressions: Service Date/Time: Tuesday, January 02, 2018 03:45 - CONCLUSION: 1. Residual patchy densities right upper lobe and left lower lobe. Miguel Lynne MD CT Angiography 12/16/17 Signed Impressions: Service Date/Time: Saturday, December 16, 2017 13:49 - CONCLUSION: 1. Negative for pulmonary emboli. 2. Dense consolidation in the lungs especially the lung bases with several cavitary lesions as above. Findings are most characteristic of pneumonia. Cannot exclude septic embolic disease. No significant effusion. Malachi Hardin MD Chest X-Ray 01/02/18599 Signed Impressions: Service Date/Time: Tuesday, January 02, 2018 03:45 - CONCLUSION: 1. Residual patchy densities right upper lobe and left lower lobe. Miguel Lynne MD Chest X-Ray 01/01/18599 Signed Impressions: Service Date/Time: Monday, January 01, 2018 02:48 - CONCLUSION: Improved aeration of the right lung with minimal bibasilar densities. Miguel Lynne MD Physical Exam GENERAL: Awake and following commands, NAD. SKIN: Warm and dry. No rash EYES: non icteric ENT: moist mucosae, no thrush NECK: Tracheostomy site ok CARDIOVASCULAR: HS audible. RESPIRATORY: Coarse BS dominga. Decreased at bases. ABDOMEN: soft , not tender, not distended BS+. PEG tube site ok. EXTREMITIES: Improving edema : clear yellow urine NEUROLOGICAL: Awake, responding. All extremities very weak PSYCHIATRIC: Awake, and cooperative LINE: No evidence of infection Assessment & Plan Remarks IMPRESSION Sepsis present, high grade, on admission, has MRSA on blood cultures - S/P arrest - last (+) BC 12/18 Bilateral pneumonia, some with cavitation - C/S with MRSA - CXR improving Very worrisome for endocarditis - clinically , but JEANINE negative Respiratory failure. - S/P trach - CXR improving Leukocytosis, decreasing Diarrhea, C diff negative x 2 RECOMMENDATION DC Zyvox last dose today Continue IV Vanco - anticipate prob 6 weeks from last (+) BC - anticipated end date 01/27 Continue Voriconazole (Aspergillus fumigatus can cause invasive pulm disease and bleeding) Follow cultures Follow clinically. to resume care on Sunday01/14/2018. Will follow prn over next few days if any new issues please call back sooner. Gardenia Dunham MD Jan 09, 2018 10:33
[2018-01-09] MEDS: fentaNYL 100 MCG/HR PATCH T-DERMAL SCH (10:45)
[2018-01-09] MEDS: VANCOMYCIN 1,000 MG/NS 250 ML IV SCH ×4 (12:41→23:01)
--- NOTE | 2018-01-09 15:16 | HHI.GIFU ---
GI Follow-up Note Consult Follow-up Subjective: Patient laying in bed comfortably, no new complaints except pain around PEG site Objective: PHYSICAL EXAMINATION: Vitals signs stable No fever HEENT: Pupils round and reactive to light; normocephalic; atraumatic; no jaundice. Throat is clear. NECK: Neck is supple, no JVD, no lymphadenopathy. CHEST: Chest is clear to auscultation and percussion. CARDIAC: Regular rate and rhythm with no murmur gallop or rubs. ABDOMEN: Soft, nondistended, nontender; no hepatosplenomegaly; bowel sounds are present in all four quadrants. EXTREMITIES: No clubbing, cyanosis, or edema. SKIN: Normal; no rash; no jaundice. DAMAGE APPRAISER: No focal deficits; alert and oriented times three. Available Data (labs, X- Rays, Procedues) : Last Impressions Chest X-Ray 01/07/18 0600 Signed Impressions: Service Date/Time: Sunday, January 07, 2018 03:17 - CONCLUSION: Interval Central line removal. Stable aeration. Demarco Gupta MD Abdomen/Pelvis CT 01/04/18 0000 Signed Impressions: Service Date/Time: Friday, January 05, 2018 00:57 - CONCLUSION: Rectal tube in good position. Some asymmetry of the renal nephrograms the left one being slightly delayed of uncertain etiology. Conceivably pyelonephritis would be within the differential on the left based on the patient's symptoms of leukocytosis. Ravinder Krause MD CT Angiography 12/16/17 0000 Signed Impressions: Service Date/Time: Saturday, December 16, 2017 13:49 - CONCLUSION: 1. Negative for pulmonary emboli. 2. Dense consolidation in the lungs especially the lung bases with several cavitary lesions as above. Findings are most characteristic of pneumonia. Cannot exclude septic embolic disease. No significant effusion. Malachi Hardin MD Laboratory Tests Test 01/08/18 03:37 01/08/18 23:42 White Blood Count 18.5 TH/MM3 Red Blood Count 4.12 MIL/MM3 Hemoglobin 12.3 GM/DL Hematocrit 36.5 % Mean Corpuscular Volume 88.6 FL Mean Corpuscular Hemoglobin 29.7 PG Mean Corpuscular Hemoglobin Concent 33.6 % Red Cell Distribution Width 13.9 % Platelet Count 332 TH/MM3 Mean Platelet Volume 9.2 FL Neutrophils (%) (Auto) 92.5 % Lymphocytes (%) (Auto) 4.6 % Monocytes (%) (Auto) 2.7 % Eosinophils (%) (Auto) 0.0 % Basophils (%) (Auto) 0.2 % Neutrophils # (Auto) 17.1 TH/MM3 Lymphocytes # (Auto) 0.9 TH/MM3 Monocytes # (Auto) 0.5 TH/MM3 Eosinophils # (Auto) 0.0 TH/MM3 Basophils # (Auto) 0.0 TH/MM3 CBC Comment DIFF FINAL Differential Comment Blood Urea Nitrogen 26 MG/DL Creatinine 0.43 MG/DL Random Glucose 132 MG/DL Calcium Level 9.0 MG/DL Sodium Level 133 MEQ/L Potassium Level 4.6 MEQ/L Chloride Level 100 MEQ/L Carbon Dioxide Level 22.9 MEQ/L Anion Gap 10 MEQ/L Estimat Glomerular Filtration Rate 158 ML/MIN Vancomycin Level Trough 19.6 MCG/ML Allergies Coded Allergies Type Severity Reaction Last Updated Verified No Known Allergies 12/15/17 No Active Scripts Medications Dose Route/Sig Max Daily Dose Days Date Category No Active Prescriptions or Reported Medications Rx ASSESSMENT/PLAN: Reconsulted for pain and tenderness around G tube site. G tube site looks clean with no obvious infection/induration. Peg tube bumper loosened a little bit. Check KUB. Continue TF. Discussed with nurse. It was a pleasure seeing Vianey Guzman. Thank you for this consult. Entered by: Amita Crowley MD Jan 09, 2018 15:16
--- NOTE | 2018-01-09 17:50 | RADRPT ---
EXAM DATE/TIME: 01/09/2018 17:16 [facility] COMPARISON: No previous studies available for comparison. INDICATIONS : Abdominal pain. MEDICAL HISTORY : Hypertension. SURGICAL HISTORY : Cholecystectomy. Hysterectomy. ENCOUNTER: Subsequent ACUITY: 3 weeks PAIN SCORE: Non-responsive. LOCATION: abdomen. FINDINGS: Percutaneous gastrostomy tube in place. No dilated loops of small bowel. Prominence of the right co leidy with stool and gas stop moderate degenerative changes in the lower lumbar spine. CONCLUSION: No dilated loops of small bowel. Gastrostomy in place. Yomi Lopez MD on January 09, 2018 at 17:47 Board Certified Radiologist. This report was verified electronically.
[2018-01-09] MEDS: ALPRAZolam 0.5 MG TAB PO PRN (18:20)
[2018-01-10] VITALS (19 sets, daily range): BP systolic 96–112; BP diastolic 46–56; PULSE 84–129; RESP 22–34; TEMP 98.1–99.7; O2SAT 93–99
[2018-01-10] MEDS: CHLORHEXIDINE GLUCONATE 2 % 1 PACK (2 CLOTHS) TOP SCH (04:11)
[2018-01-10] MEDS: BELLADONNA ALKALOIDS/OPIUM 60 MG SUPP RECTAL PRN (04:11)
[2018-01-10 05:32] LABS: AUTOMATED NEUTROPHIL # 18.5 TH/MM3 (1.8-7.7); BASOPHIL # 0.1 TH/MM3 (0-0.2); BASOPHIL % 0.5 % (0.0-2.0); EOSINOPHIL % 0.2 % (0.0-4.0); HEMATOCRIT 33.6 % (35.0-46.0); HEMOGLOBIN 11.7 GM/DL (11.6-15.3); LYMPH % 6.1 % (9.0-44.0); LYMPHOCYTE # 1.3 TH/MM3 (1.0-4.8); MEAN CELL VOLUME 87.4 FL (80.0-100.0); MEAN CORPUSCULAR HEMOGLOBIN 30.5 PG (27.0-34.0); MEAN CORPUSCULAR HGB CONC 34.8 % (32.0-36.0); MEAN PLATELET VOLUME 8.3 FL (7.0-11.0); MONO % 3.4 % (0.0-8.0); MONOCYTE # 0.7 TH/MM3 (0-0.9); NEUT % 89.8 % (16.0-70.0); PLATELET COUNT 252 TH/MM3 (150-450); RED BLOOD COUNT 3.84 MIL/MM3 (4.00-5.30); RED CELL DISTRIBUTION WIDTH 14.3 % (11.6-17.2); WHITE BLOOD COUNT 20.6 TH/MM3 (4.0-11.0)
[2018-01-10] MEDS: LEVOTHYROXINE SODIUM 25 MCG TAB PO SCH (05:39)
[2018-01-10] MEDS: INSULIN NovoLIN REGULAR SUPPLEMENTAL SCALE SQ SCH ×3 (05:39→18:00)
[2018-01-10] MEDS: cloNIDine HCL 0.1 MG TAB PO SCH ×3 (05:40→22:00)
[2018-01-10] MEDS: METOCLOPRAMIDE HCL 10 MG/2 ML VIAL IV PUSH SCH ×3 (06:03→22:26)
--- NOTE | 2018-01-10 06:20 | RADRPT ---
EXAM DATE/TIME: 01/10/2018 03:55 [facility] COMPARISON: CHEST SINGLE AP, January 07, 2018, 3:17. INDICATIONS : Shortness of breath, possible pulmonary disease. MEDICAL HISTORY : Sepsis. Pneumonia SURGICAL HISTORY : None. ENCOUNTER: Subsequent ACUITY: 2 weeks PAIN SCORE: Non-responsive. LOCATION: Bilateral chest FINDINGS: Tracheostomy is stable. Nasogastric tube has been removed. There is parenchymal opacity in the left b ase and in the perihilar regions which appears grossly stable. CONCLUSION: No significant change in aeration Demarco Gupta MD on January 10, 2018 at 6:17 Board Certified Radiologist. This report was verified electronically.
[2018-01-10 06:27] LABS: ALBUMIN 2.9 GM/DL (3.4-5.0); ALKALINE PHOSPHATASE 137 U/L (45-117); ALT (GPT) 34 U/L (10-53); AST (GOT) 19 U/L (15-37); BICARBONATE 22.9 MEQ/L (21.0-32.0); BLOOD UREA NITROGEN 22 MG/DL (7-18); CALCIUM 8.7 MG/DL (8.5-10.1); CHLORIDE 103 MEQ/L (98-107); CREATININE 0.49 MG/DL (0.50-1.00); GLOMERULAR FILTRATION RATE 136 ML/MIN (>89); GLUCOSE,RANDOM 94 MG/DL (74-106); MAGNESIUM 2.1 MG/DL (1.5-2.5); SODIUM (NA) 136 MEQ/L (136-145); TOTAL BILIRUBIN ADULT 0.7 MG/DL (0.2-1.0); TOTAL PROTEIN 7.1 GM/DL (6.4-8.2)
[2018-01-10] MEDS: POTASSIUM CHLOR 20 MEQ PREMIX 100 ML IV PRN ×2 (06:44→08:55)
[2018-01-10] MEDS: RESP: BUDESONIDE 0.5 MG/2 ML NEB NEB SCH ×2 (07:54→16:27)
[2018-01-10] MEDS: RESP: ALBUTEROL 2.5 MG/3 ML NEB (PRN) NEB (07:54)
[2018-01-10] MEDS: ASPIRIN 81 MG CHEW TAB CHEW SCH (08:07)
[2018-01-10] MEDS: FAMOTIDINE 20 MG TAB PO SCH ×2 (08:07→20:02)
[2018-01-10] MEDS: FUROSEMIDE 20 MG/2 ML VIAL IV PUSH SCH (08:07)
[2018-01-10] MEDS: SODIUM CHLORIDE 0.9% FLUSH 10 ML FLUSH IV FLUSH SCH ×3 (08:07→20:02)
[2018-01-10] MEDS: VORICONAZOLE 200 MG TAB PO SCH ×2 (08:07→20:02)
[2018-01-10] MEDS: INSULIN DETEMIR 100 UNITS/ML VIAL SQ SCH ×2 (08:07→20:01)
[2018-01-10] MEDS: MUPIROCIN 2% OINT 1 APPLIC/GM SYR EACH NARE SCH ×2 (08:08→20:04)
[2018-01-10] MEDS: ARTIFICIAL TEARS OPTH OINT 3.5 APPLIC/3.5 GM TUBO EACH EYE SCH ×2 (08:09→20:03)
[2018-01-10] MEDS: CHLORHEXIDINE 0.12% (ORAL KIT) 15 ML CUP MT SCH ×2 (08:18→20:03)
[2018-01-10] MEDS: VANCOMYCIN 1,000 MG/NS 250 ML IV SCH ×4 (11:32→22:27)
--- NOTE | 2018-01-10 12:07 | HHI.CCPN ---
Subjective Remarks/Hospital Course This is a 47-year-old female with a history of anxiety disorder, that presented to [place] on with complaints of chest pain and dyspnea that has been lasting for the past 4 days. The patient was transferred to [facility]. Imaging and laboratory studies were initially performed which showed a chest x-ray with bilateral patchy airspace consolidation consistent with bronchial pneumonia, and her lactic acid level was noted to be 3.1. The patient's oxygen requirements continue to increase the patient became tachypneic with a respiratory rate in the 40s and tachycardic, heart rate in the 120s. Pulmonology was consulted, CT was performed which revealed no pulmonary emboli , will several cavitary lesions, dense consolidation at both lung bases, air bronchograms and extensive pneumomediastinum extending into the lower neck and upper chest .ICU was requested to see patient. Upon observation the patient was severely dyspneic, with significant accessory muscle movement, violently coughing hemoptysis. Decision made to intubate patient for airway protection. 12/17 Patient is sedated with Diprivan and versed infusion. afebrile. s/p bronch yesterday by Dr. Klein. 12/18 Patient remains sedated with Versed 10mg/hr and Fentanyl 250 mics. Tmax 102.1 yesterday. + MRSA in bronch and GPC/MRSA from [facility] 12/15 from [place] 12/19: Patient developed respiratory distress and SVT this am with vent dyssynchrony with air trapping and elevated peak pressure. FiO2 increased to 100%, started on Nimbex infusion. Intermittently tachycardic, occasional bradycardia also. EKG shows sinus rhythm. Patient is very critical now. Will consult cardiology for JEANINE, and also regarding SVT. Chest x-ray shows worsening bilateral infiltrates concerning for ARDS 12/20: Remains intubated heavily sedated and neuromuscularly paralyzed to maintain ventilator synchrony and control peak pressures. Chest x-ray shows persistent bilateral infiltrates. JEANINE planned for today. All cultures so far positive for MRSA. Tachy Arrhythmia is better controlled after starting sotalol 12/21: CODE BLUE overnight when patient became bradycardic. Received epinephrine with chest compressions with return of spontaneous relief within 5 minutes according to RN. Currently on peripheral dopamine at 10 mcg/kg/min. FiO2 currently at 100%. Chest x-ray revealed worsening diffuse bilateral pulmonary infiltrates 12/22: T-max 101.1 Fahrenheit. Currently 98.9 Fahrenheit. +2493 cc past 24 hours. No bowel movement. Currently on roto-prone bed on epoprostenol at 50, 000 ng/kg/min aerosolized. On tube feeds Glucerna 1.5 at 20 cc an hour. 12/23: Overnight, when switching from supine to prone position patient 32nd episode of asystole resolved without chest compressions. We are currently patient has been prone position again with very slow with and without. Tolerating tube feeds now. Remains on cisatracurium drip at 4 mcg/min 12/24 Patient remains sedated and intubated. On Diprivan, Fentanyl, Versed in addition to Nimbex and Dopamine @5mics. Afebrile. 12/25 No events overnight. Remains sedated, intubated and on Rotoprone bed. On Dopamine 5 mics and Nimbex. T:99.7 12/26: Remains critically ill remains on prone ventilation. I will change on time/supine time to prospectively 5 hours/1 hour cycles. Increase PEEP to 10 to facilitate prolonged weaning. CXR shows persistent consolidation RUL 12/27: Remains critical but oxygenation stable. Off dopamine but hypotensive now with map of 58. Start on Levophed to keep map above 65. Change prone/ supine cycles to 4 hours each. Discontinue prone therapy in the next 24 hours if stable. WBC count is slightly improved 12/28: Transitioned from a prone bed to Roto-Rest today, tolerated well. Remains on Flolan will start weaning today per protocol. Urine output is excellent with Lasix. Remains on Levophed to maintain map above 65. Discontinue Nimbex today 12/29: hypoxia continues to improve. wbc uptrending, although remains afebrile. cultures NGTD. good diuresis. developing metabolic alkalosis most likely from contraction. 12/30: continues to diurese well. off rota-rest bed. on my evaluation today, however, awake and alert, follows commands. cannot lift hands off bed or head off bed at all. severely weak, most likely from critical illness polymyopathy ( prolonged neuromuscular blockade and steroid use). unable to successfully pass SBT. intubation and mechanical ventilation for > 2 weeks. will require tracheostomy to progress care further. 12/31: Status post trach yesterday. Tolerating SBT. Continues to have significant neuromuscular weakness. Attempt 2-4hour T piece today 01/01: Patient more critical today, WBC increased to 29.8. Diarrhea +. Tachycardic, Did not tolerate Tp today. Placed back on vent. ID has started Diflucan. Check repeat C Diff. 01/02: Tolerated 1 hour of T piece today, currently on CPAP. Muscle strength improving 4 out of 5 on exam today. WBC 27.7 today, slightly improved. Urine output excellent. C. difficile negative 2. Tachycardia persist 01/03: tachycardia somewhat improved. wbc still uptrending. sputum growing mold species, speciation and sensitivities to follow. did tolerate more t-piece time than yesterday. 01/04: wbc still elevated. sputum growing aspergillus. pt doing well on t-piece trials and lasting longer. still very weak and unable to lift hands off bed. patient denies complaints. just on low-dose fentanyl. 01/05: wbc downtrending. continues to lengthen time with t-piece. OOB to stretcher chair. will need long-term acute care level rehab. ROS negative. 01/06: Remains on the vent but tolerating CPAP. Follows commands but weakness persists. No labs today. 01/07: Patient has apnea episodes while she is wide awake. CXR clearing. Will decrease bicarb with Diamox and see if respiratory drive improves. 01/08: Currently on full vent support. Will transition to SBT and T-piece as tolerated. Slight increase in white count noted. Muscle strength remains same 01/09: Remains on the ventilator, tolerated T piece for 7 hours yesterday. Appears more awake alert today. Muscle strength stable. No fever 01/10: Currently on CPAP trials, tolerating T piece during daytime. Will increase T piece time 224 7 as tolerated. WBC count increased to 20,000. Voriconazole started by ID for sputum growing Aspergillus fumigatus-most likely colonization. No evidence of invasive aspergillosis on chest imaging, will discuss with ID Objective Vital Signs Date Time Temp Pulse Resp B/P (MAP) Pulse Ox O2 Delivery O2 Flow Rate FiO2 01/10/18 10:00 129 01/10/18 10:00 93 40 01/10/18 08:20 T-piece 6.00 01/10/18 08:00 99.0 34 110/54 (72) Intake and Output 01/10/18 01/10/18 01/11/18 08:00 16:00 00:00 Intake Total 741 ml Output Total 601 ml Balance 140 ml Result Diagram: 01/10/18 0522 01/10/18 0522 Imaging Last Impressions Chest X-Ray 12/24/17 0600 Signed Impressions: Service Date/Time: Sunday, December 24, 2017 04:53 - CONCLUSION: Persistent dense consolidation right upper lobe and a new small area of consolidation in the left lower lobe. Yomi Lopez MD CT Angiography 12/16/17 0000 Signed Impressions: Service Date/Time: Saturday, December 16, 2017 13:49 - CONCLUSION: 1. Negative for pulmonary emboli. 2. Dense consolidation in the lungs especially the lung bases with several cavitary lesions as above. Findings are most characteristic of pneumonia. Cannot exclude septic embolic disease. No significant effusion. Malachi Hardin MD Objective Remarks GENERAL: 47-year-old female lying in bed. On PSV SKIN: Warm and dry. HEAD: Normocephalic. Atraumatic. EYES: No scleral icterus. No injection or drainage. ENT: Oral cavity moist NECK: Supple, trachea midline. Trach in place, clean, dry. CARDIOVASCULAR: Nl S1S2. No murmurs. No JVD. RESPIRATORY: Good dominga air movement. Bilateral coarse rhonchi, improved GASTROINTESTINAL: Abdomen soft, non-tender, nondistended. BS active. MUSCULOSKELETAL: No significant peripheral edema. Warm, well perfused. NEURO: Alert awake. follows commands. globally weak, functional quadriparesis. Muscle power slightly improved 3-4 out of 5, in all extremities A/P Problem List: (1) Acute hypoxemic respiratory failure ICD Code: J96.01 - Acute respiratory failure with hypoxia (2) Septic shock due to methicillin resistant Staphylococcus aureus ICD Code: A41.02 - Sepsis due to Methicillin resistant Staphylococcus aureus; R65.21 - Severe sepsis with septic shock (3) Sepsis due to methicillin resistant Staphylococcus aureus (MRSA) ICD Code: A41.02 - Sepsis due to Methicillin resistant Staphylococcus aureus (4) ARDS (adult respiratory distress syndrome) ICD Code: J80 - Acute respiratory distress syndrome (5) Cavitating pneumonia (6) 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 s/p tracheostomy, PEG. Tolerating TP Neuro/Psych: Critical Illness Polyneuropathy/critical illness myopathy Functional quadriparesis secondary to above Anxiety disorder THC use Off fentanyl infusion, start fentanyl patch 100 mcg/h Continue clonidine 0.1 mg every 8 hours Patient will need long-term rehab for CIM/CIP Received IV steroids and neuromuscular blockade for prolonged duration as the patient was extremely hypoxic with severe ARDS requiring prone ventilation Continue aggressive PT/OT. Up to chair daily Acetaminophen 650 mg liquid by tube every 6 hours as needed fever Respiratory: Acute hypoxemic respiratory failure status post tracheostomy-resolved Severe ARDS-resolved Small right Pneumothorax/Pneumomediastinum Hemoptysis by history Pulmonary cavitary lesions-resolved on CXR Increase TP time 30/[address] chest today 01/10/18 to reevaluate cavitated lesions s/p prone ventilation. s/p Flolan s/p trach 12/30/17 Ventilator bundle. Albuterol/ipratropium aerosols every 4 hours with albuterol aerosols every 2 hours as needed dyspnea Budesonide 0.5/2 1 inhalation twice daily Completed steroid course 12/16 -CT Angio - extensive pneumomediastinum extending into neck and upper chest. Dense consolidation at both lung bases, air bronchograms , 2 cavitary lesions 12/16-bronchoscopy performed by Dr. Klein, no active sites noted for bleeding, moderate purulent mucus bilaterally noted 2 BAL samples sent CTS has followed for Pneumomediastinum-per Dr. Guadarrama no intervention at this time. Dr. Mireles pulmonology following Diamox 500 daily X 3 from 01/07 Cardiovascular: Septic shock- resolved. Bradycardic arrest- resolved. Paroxysmal atrial fibrillation- resolved, no in NSR SVT- resolved. Possible infective endocarditis Elevated troponin- resolved. off vasopressors. On sotalol 40 mg twice daily by Dr. Bray 12/19 Tachycardic, will not add AV kareem blockers secondary to bradycardic arrest Transesophageal echocardiogram 12/20 revealed no signs of endocarditis. Preserved LV function. Trace MR/TR Echo 12/17 showed EF 60-65%. Echo 12/21 EF 50%. Cannot rule out regional wall motion and ability Troponin 1.26 from 3.4 and downward trended Aspirin 81 mg p.o. daily FEN/Renal: Hyponatremia- resolved. Acute intravascular volume overload- persistent. Monitor renal function Electrolytes replacement per protocol. Continue Lasix 20mg Q12. Diuresis to dry weight. Diamox as above GI: Elevated AST and alkaline phosphatase - improving. Hypoalbuminemia Acute protein calorie malnutrition - moderate On tube feeds-Glucerna 1.5 with goal rate 55ml/hr Famotidine 20 mg twice daily GI prophylaxis Docusate sodium/senna 1 tablet twice daily for bowel regimen Having bowel movements. ID: MRSA Bacteremia MRSA pneumonia Worsening sepsis leukocytosis Shahnaz UTI Septic shock- resolved. Continue Zyvox to finish 01/09. Continue IV Vanco anticipated end date 01/27 per ID DC diflucan, and Voriconazole started for Aspergillus fumigatus 01/08, doubt invasive aspergillosis. Will discuss with ID Repeat CT today to reevaluate cavitary lesions C. difficile neg x2 ceftaroline Dcd 12/27/17. Cubicin DCd 12/26 by ID JEANINE revealed no signs of endocarditis 12/20 12/15 [facility] from [place]- MRSA 12/16 Bronch BAL- MRSA [facility] 12/16, 12/17 12/18: MRSA Blood culture 12/19 no growth 12/20 sputum/12/21 BAL MRSA influenza, pneumococcal and Legionella antigens- Negative Sputum 01/01 Aspergillus fumigatus, likely colonization Heme: Leukocytosis Normocytic anemia Monitor CBC. 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 Sliding scale insulin Accu-Cheks every 6 hours to maintain euglycemia/medium regimen. Levemir to 12 units every 12 01/02. Low free T3 and T4 on levothyroxine 25 mcg daily with low T4. 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 Its more appropriate to work up when she is over the critical illness Prophylaxis: GI Prophylaxis Famotidine IV DVT Prophylaxis -- SCDs -heparin SQ Overall impression: Muscle wasting and weight loss, protein calorie malnutrition. s.p PEG /. Level 2 Maribel Pal MD Jan 10, 2018 12:07
[2018-01-10] MEDS: RESP: ALBUTEROL 2.5 MG/IPRATROPIUM 0.5 MG NEB (SCH) NEB ×2 (16:26→23:34)
--- NOTE | 2018-01-10 16:52 | HHI.PR ---
Subjective Remarks on the ventilator alert no distress Objective Vital Signs Date Time Temp Pulse Resp B/P (MAP) Pulse Ox O2 Delivery O2 Flow Rate FiO2 01/10/18 14:00 84 01/10/18 13:15 93 T-piece 6.00 50 01/10/18 12:00 91 01/10/18 12:00 40 01/10/18 10:00 129 01/10/18 10:00 117 01/10/18 10:00 93 40 01/10/18 08:20 94 T-piece 6.00 40 01/10/18 08:00 99.0 129 34 110/54 (72) 99 01/10/18 08:00 129 01/10/18 08:00 40 01/10/18 07:50 96 40 01/10/18 06:00 103 01/10/18 04:09 97 40 01/10/18 04:00 40 01/10/18 04:00 109 01/10/18 04:00 99.0 109 26 98/55 (69) 96 01/10/18 02:00 104 01/10/18 00:11 96 40 01/10/18 00:00 108 01/10/18 00:00 40 01/10/18 00:00 99.7 108 26 108/51 (70) 96 01/09/18 22:02 95 Ventilator 01/09/18 22:00 106 01/09/18 21:56 96 40 01/09/18 20:00 99.5 104 21 99/52 (68) 100 01/09/18 20:00 111 01/09/18 19:42 97 T-piece 6.00 40 01/09/18 18:00 110 01/09/18 18:00 111 I/O 01/09/18 01/09/18 01/09/18 01/10/18 01/10/18 01/10/18 07:00 15:00 23:00 07:00 15:00 23:00 Intake Total 964.5 ml 250 ml 794 ml 741 ml 350 ml Output Total 725 ml 1550 ml 601 ml Balance 239.5 ml 250 ml -756 ml 140 ml 350 ml IV Total 562.5 ml 250 ml 300 ml 250 ml 350 ml Tube Feeding 282 ml 394 ml 371 ml Other 120 ml 100 ml 120 ml Output Urine Total 725 ml 1550 ml 600 ml Stool Total 0 ml 0 ml 1 ml Result Diagram: 01/10/18 0522 01/10/18 0522 Procedures BiPAP Objective Remarks GENERAL: sedated on vent support SKIN: Warm and dry. HEAD: Atraumatic. Normocephalic. EYES: Pupils equal and round. No scleral icterus. No injection or drainage. ENT: No nasal bleeding or discharge. Mucous membranes pink and moist. NECK: Trachea midline. No JVD. CARDIOVASCULAR: Regular rate and rhythm. RESPIRATORY: No accessory muscle use. Clear to auscultation. Breath sounds equal bilaterally. GASTROINTESTINAL: Abdomen soft, non-tender, nondistended. Hepatic and splenic margins not palpable. MUSCULOSKELETAL: Extremities without clubbing, cyanosis, or edema. No obvious deformities. NEUROLOGICAL: Awake and alert. No obvious cranial nerve deficits. Motor grossly within normal limits. Five out of 5 muscle strength in the arms and legs. Normal speech. PSYCHIATRIC: Appropriate mood and affect; insight and judgment normal. Assessment and Plan Assessment and Plan imp: ALERT, TRACHEOSTOMY IN PLACE respiratory failure/ plan pulm toilet wean as tolerated F/U CXRAY, STABLE Ileana Tejeda MD Jan 10, 2018 16:52
--- NOTE | 2018-01-10 17:52 | RADRPT ---
EXAM DATE/TIME: 01/10/2018 17:23 [facility] COMPARISON: CT PULMONARY ANGIOGRAM, December 16, 2017, 13:49. CT ABDOMEN & PELVIS W CONTRAST, January 05, 2018, 0:57. INDICATIONS : Re-evaluate cavitation. RADIATION DOSE: 5.37 CTDIvol (mGy) MEDICAL HISTORY : None SURGICAL HISTORY : Hysterectomy. Cholecystectomy. ENCOUNTER: Subsequent ACUITY: 1 week PAIN SCALE: 0/10 LOCATION: chest TECHNIQUE: Volumetric scanning of the chest was performed. Using automated exposure control and adjustment of t he mA and/or kV according to patient size, radiation dose was kept as low as reasonably achievable to obtain optimal diagnostic quality images. DICOM format image data is available electronically for r eview and comparison. Follow-up recommendations for detected pulmonary nodules are based at a minimum on nodule size and pa tient risk factors according to Fleischner Society Guidelines. FINDINGS: The exam demonstrates patchy areas of groundglass appearing infiltrate throughout the upper lobes. Th ere is consolidation in the right middle lobe and the lower lobes bilaterally. There are scattered em physematous blebs. The heart is normal in size. There is no hilar or mediastinal adenopathy. There is a tracheostomy in good position. The limited portions of upper abdomen visualized are unremarkable. The visualized bony structures are grossly intact. CONCLUSION: 1. There are areas of dense consolidation in the lung bases. These have significantly improved when c ompared to the prior exam. 2. Scattered emphysematous blebs within the pulmonary parenchyma. 3. Small area consolidation in the right middle lobe. 4. The emphysematous blebs in the right middle lobe and left lower lobe are new. The overall appearan ce of the chest is improved when compared to the previous study of 12/16/17. Adam Latif MD on January 10, 2018 at 17:46 Board Certified Radiologist. This report was verified electronically.
[2018-01-10] MEDS: HEPARIN SODIUM - SQ 10,000 UNITS/ML VIAL SQ SCH (20:02)
[2018-01-10] MEDS: ALPRAZolam 0.5 MG TAB PO PRN (22:52)
[2018-01-11] VITALS (14 sets, daily range): BP systolic 98–123; BP diastolic 48–58; PULSE 92–123; RESP 21–34; TEMP 98–99.3; O2SAT 95–100
[2018-01-11] MEDS: CHLORHEXIDINE GLUCONATE 2 % 1 PACK (2 CLOTHS) TOP SCH (04:00)
[2018-01-11] MEDS: cloNIDine HCL 0.1 MG TAB PO SCH ×3 (05:41→20:56)
[2018-01-11] MEDS: HEPARIN SODIUM - SQ 10,000 UNITS/ML VIAL SQ SCH ×3 (05:41→20:54)
[2018-01-11] MEDS: METOCLOPRAMIDE HCL 10 MG/2 ML VIAL IV PUSH SCH ×2 (05:41→15:49)
[2018-01-11] MEDS: LEVOTHYROXINE SODIUM 25 MCG TAB PO SCH (05:41)
[2018-01-11] MEDS: INSULIN NovoLIN REGULAR SUPPLEMENTAL SCALE SQ SCH ×4 (06:16→17:02)
[2018-01-11] MEDS: RESP: BUDESONIDE 0.5 MG/2 ML NEB NEB SCH ×2 (07:28→19:17)
[2018-01-11] MEDS: RESP: ALBUTEROL 2.5 MG/IPRATROPIUM 0.5 MG NEB (SCH) NEB ×3 (07:28→23:17)
[2018-01-11] MEDS: FUROSEMIDE 20 MG/2 ML VIAL IV PUSH SCH (08:03)
[2018-01-11] MEDS: MUPIROCIN 2% OINT 1 APPLIC/GM SYR EACH NARE SCH ×2 (08:03→20:55)
[2018-01-11] MEDS: ASPIRIN 81 MG CHEW TAB CHEW SCH (08:03)
[2018-01-11] MEDS: VORICONAZOLE 200 MG TAB PO SCH ×2 (08:03→20:55)
[2018-01-11] MEDS: FAMOTIDINE 20 MG TAB PO SCH ×2 (08:03→20:55)
[2018-01-11] MEDS: INSULIN DETEMIR 100 UNITS/ML VIAL SQ SCH ×2 (08:04→20:55)
[2018-01-11] MEDS: SODIUM CHLORIDE 0.9% FLUSH 10 ML FLUSH IV FLUSH SCH ×3 (08:04→20:55)
[2018-01-11] MEDS: CHLORHEXIDINE 0.12% (ORAL KIT) 15 ML CUP MT SCH ×2 (08:09→20:00)
[2018-01-11] MEDS: ARTIFICIAL TEARS OPTH OINT 3.5 APPLIC/3.5 GM TUBO EACH EYE SCH ×2 (08:09→20:54)
--- NOTE | 2018-01-11 08:46 | HHI.PR ---
Subjective Remarks on the ventilator alert no distress on tbar since yesterday Objective Vital Signs Date Time Temp Pulse Resp B/P (MAP) Pulse Ox O2 Delivery O2 Flow Rate FiO2 01/11/18 07:27 100 T-piece 6.00 35 01/11/18 06:00 98 01/11/18 04:00 103 01/11/18 04:00 98.3 103 25 109/52 (71) 100 01/11/18 04:00 35 01/11/18 02:00 92 01/11/18 00:00 98.0 94 21 98/48 (65) 95 01/11/18 00:00 94 01/11/18 00:00 35 01/10/18 22:00 98 01/10/18 21:00 96/46 (63) 01/10/18 20:00 92 01/10/18 20:00 35 01/10/18 20:00 98.1 92 23 99 01/10/18 19:40 99 T-piece 5.00 35 01/10/18 18:00 103 01/10/18 16:00 99.0 89 22 98/49 (65) 97 01/10/18 16:00 89 01/10/18 14:00 84 01/10/18 13:15 93 T-piece 6.00 50 01/10/18 12:00 99.0 91 25 112/56 (74) 96 01/10/18 12:00 91 01/10/18 12:00 40 01/10/18 10:00 129 01/10/18 10:00 117 01/10/18 10:00 93 40 I/O 01/10/18 01/10/18 01/10/18 01/11/18 01/11/18 01/11/18 07:00 15:00 23:00 07:00 15:00 23:00 Intake Total 741 ml 450 ml 558 ml 1043 ml Output Total 601 ml 1300 ml 425 ml Balance 140 ml 450 ml -742 ml 618 ml IV Total 250 ml 450 ml 250 ml Tube Feeding 371 ml 438 ml 593 ml Other 120 ml 120 ml 200 ml Output Urine Total 600 ml 1300 ml 425 ml Stool Total 1 ml # Bowel Movements 0 3 Result Diagram: 01/10/18 0501/10/18 0522 Procedures BiPAP Objective Remarks GENERAL: sedated on vent support SKIN: Warm and dry. HEAD: Atraumatic. Normocephalic. EYES: Pupils equal and round. No scleral icterus. No injection or drainage. ENT: No nasal bleeding or discharge. Mucous membranes pink and moist. NECK: Trachea midline. No JVD. CARDIOVASCULAR: Regular rate and rhythm. RESPIRATORY: No accessory muscle use. Clear to auscultation. Breath sounds equal bilaterally. GASTROINTESTINAL: Abdomen soft, non-tender, nondistended. Hepatic and splenic margins not palpable. MUSCULOSKELETAL: Extremities without clubbing, cyanosis, or edema. No obvious deformities. NEUROLOGICAL: Awake and alert. No obvious cranial nerve deficits. Motor grossly within normal limits. Five out of 5 muscle strength in the arms and legs. Normal speech. PSYCHIATRIC: Appropriate mood and affect; insight and judgment normal. Assessment and Plan Assessment and Plan imp: ALERT, TRACHEOSTOMY IN PLACE respiratory failure/ plan O2 as needed pulm toilet Ileana Tejeda MD Jan 11, 2018 08:46
[2018-01-11 08:49] LABS: AUTOMATED NEUTROPHIL # 10.5 TH/MM3 (1.8-7.7); BASOPHIL % 0.3 % (0.0-2.0); EOSINOPHIL # 0.3 TH/MM3 (0-0.4); EOSINOPHIL % 2.2 % (0.0-4.0); HEMATOCRIT 32.8 % (35.0-46.0); HEMOGLOBIN 11.1 GM/DL (11.6-15.3); LYMPHOCYTE # 1.3 TH/MM3 (1.0-4.8); MEAN CELL VOLUME 88.8 FL (80.0-100.0); MEAN CORPUSCULAR HEMOGLOBIN 30.1 PG (27.0-34.0); MEAN CORPUSCULAR HGB CONC 33.9 % (32.0-36.0); MEAN PLATELET VOLUME 9.8 FL (7.0-11.0); MONOCYTE # 0.6 TH/MM3 (0-0.9); NEUT % 82.5 % (16.0-70.0); PLATELET COUNT 200 TH/MM3 (150-450); RED BLOOD COUNT 3.69 MIL/MM3 (4.00-5.30); RED CELL DISTRIBUTION WIDTH 14.8 % (11.6-17.2); WHITE BLOOD COUNT 12.7 TH/MM3 (4.0-11.0)
[2018-01-11] MEDS ORDERED: PHARMACY ORDERED LAB ONE (10:45)
[2018-01-11] MEDS: VANCOMYCIN 1,000 MG/NS 250 ML IV SCH ×2 (11:35)
[2018-01-11 12:23] LABS: VANCOMYCIN TROUGH 17.6 MCG/ML (5.0-10.0)
--- NOTE | 2018-01-11 13:45 | HHI.CCPN ---
Subjective Remarks/Hospital Course This is a 47-year-old female with a history of anxiety disorder, that presented to [facility] on with complaints of chest pain and dyspnea that has been lasting for the past 4 days. The patient was transferred to [facility]. Imaging and laboratory studies were initially performed which showed a chest x-ray with bilateral patchy airspace consolidation consistent with bronchial pneumonia, and her lactic acid level was noted to be 3.1. The patient's oxygen requirements continue to increase the patient became tachypneic with a respiratory rate in the 40s and tachycardic, heart rate in the 120s. Pulmonology was consulted, CT was performed which revealed no pulmonary emboli , will several cavitary lesions, dense consolidation at both lung bases, air bronchograms and extensive pneumomediastinum extending into the lower neck and upper chest .ICU was requested to see patient. Upon observation the patient was severely dyspneic, with significant accessory muscle movement, violently coughing hemoptysis. Decision made to intubate patient for airway protection. 12/17 Patient is sedated with Diprivan and versed infusion. afebrile. s/p bronch yesterday by Dr. Klein. 12/18 Patient remains sedated with Versed 10mg/hr and Fentanyl 250 mics. Tmax 102.1 yesterday. + MRSA in bronch and GPC/MRSA from [facility] 12/15 from [place] 12/19: Patient developed respiratory distress and SVT this am with vent dyssynchrony with air trapping and elevated peak pressure. FiO2 increased to 100%, started on Nimbex infusion. Intermittently tachycardic, occasional bradycardia also. EKG shows sinus rhythm. Patient is very critical now. Will consult cardiology for JEANINE, and also regarding SVT. Chest x-ray shows worsening bilateral infiltrates concerning for ARDS 12/20: Remains intubated heavily sedated and neuromuscularly paralyzed to maintain ventilator synchrony and control peak pressures. Chest x-ray shows persistent bilateral infiltrates. JEANINE planned for today. All cultures so far positive for MRSA. Tachy Arrhythmia is better controlled after starting sotalol 12/21: CODE BLUE overnight when patient became bradycardic. Received epinephrine with chest compressions with return of spontaneous relief within 5 minutes according to RN. Currently on peripheral dopamine at 10 mcg/kg/min. FiO2 currently at 100%. Chest x-ray revealed worsening diffuse bilateral pulmonary infiltrates 12/22: T-max 101.1 Fahrenheit. Currently 98.9 Fahrenheit. +2493 cc past 24 hours. No bowel movement. Currently on roto-prone bed on epoprostenol at 50, 000 ng/kg/min aerosolized. On tube feeds Glucerna 1.5 at 20 cc an hour. 12/23: Overnight, when switching from supine to prone position patient 32nd episode of asystole resolved without chest compressions. We are currently patient has been prone position again with very slow with and without. Tolerating tube feeds now. Remains on cisatracurium drip at 4 mcg/min 12/24 Patient remains sedated and intubated. On Diprivan, Fentanyl, Versed in addition to Nimbex and Dopamine @5mics. Afebrile. 12/25 No events overnight. Remains sedated, intubated and on Rotoprone bed. On Dopamine 5 mics and Nimbex. T:99.7 12/26: Remains critically ill remains on prone ventilation. I will change on time/supine time to prospectively 5 hours/1 hour cycles. Increase PEEP to 10 to facilitate prolonged weaning. CXR shows persistent consolidation RUL 12/27: Remains critical but oxygenation stable. Off dopamine but hypotensive now with map of 58. Start on Levophed to keep map above 65. Change prone/ supine cycles to 4 hours each. Discontinue prone therapy in the next 24 hours if stable. WBC count is slightly improved 12/28: Transitioned from a prone bed to Roto-Rest today, tolerated well. Remains on Flolan will start weaning today per protocol. Urine output is excellent with Lasix. Remains on Levophed to maintain map above 65. Discontinue Nimbex today 12/29: hypoxia continues to improve. wbc uptrending, although remains afebrile. cultures NGTD. good diuresis. developing metabolic alkalosis most likely from contraction. 12/30: continues to diurese well. off rota-rest bed. on my evaluation today, however, awake and alert, follows commands. cannot lift hands off bed or head off bed at all. severely weak, most likely from critical illness polymyopathy ( prolonged neuromuscular blockade and steroid use). unable to successfully pass SBT. intubation and mechanical ventilation for > 2 weeks. will require tracheostomy to progress care further. 12/31: Status post trach yesterday. Tolerating SBT. Continues to have significant neuromuscular weakness. Attempt 2-4hour T piece today 01/01: Patient more critical today, WBC increased to 29.8. Diarrhea +. Tachycardic, Did not tolerate Tp today. Placed back on vent. ID has started Diflucan. Check repeat C Diff. 01/02: Tolerated 1 hour of T piece today, currently on CPAP. Muscle strength improving 4 out of 5 on exam today. WBC 27.7 today, slightly improved. Urine output excellent. C. difficile negative 2. Tachycardia persist 01/03: tachycardia somewhat improved. wbc still uptrending. sputum growing mold species, speciation and sensitivities to follow. did tolerate more t-piece time than yesterday. 01/04: wbc still elevated. sputum growing aspergillus. pt doing well on t-piece trials and lasting longer. still very weak and unable to lift hands off bed. patient denies complaints. just on low-dose fentanyl. 01/05: wbc downtrending. continues to lengthen time with t-piece. OOB to stretcher chair. will need long-term acute care level rehab. ROS negative. 01/06: Remains on the vent but tolerating CPAP. Follows commands but weakness persists. No labs today. 01/07: Patient has apnea episodes while she is wide awake. CXR clearing. Will decrease bicarb with Diamox and see if respiratory drive improves. 01/08: Currently on full vent support. Will transition to SBT and T-piece as tolerated. Slight increase in white count noted. Muscle strength remains same 01/09: Remains on the ventilator, tolerated T piece for 7 hours yesterday. Appears more awake alert today. Muscle strength stable. No fever 01/10: Currently on CPAP trials, tolerating T piece during daytime. Will increase T piece time 224 7 as tolerated. WBC count increased to 20,000. Voriconazole started by ID for sputum growing Aspergillus fumigatus-most likely colonization. No evidence of invasive aspergillosis on chest imaging, will discuss with ID 01/11: Sitting up in stretcher chair. On tp since [address] of the chest yesterday shows small areas of basilar consolidation. New emphysematous blebs vs cavity in the right middle lobe and left lower lobe are new. Overall significant improvement Objective Vital Signs Date Time Temp Pulse Resp B/P (MAP) Pulse Ox O2 Delivery O2 Flow Rate FiO2 01/11/18 12:00 35 01/11/18 12:00 112 01/11/18 12:00 99.3 26 105/51 (69) 95 01/11/18 07:27 T-piece 6.00 Intake and Output 01/11/18 01/11/18 01/12/18 08:00 16:00 00:00 Intake Total 1043 ml Output Total 425 ml Balance 618 ml Result Diagram: 01/11/18 0809 01/10/18 0522 Imaging Last Impressions Chest X-Ray 12/24/17 0600 Signed Impressions: Service Date/Time: Sunday, December 24, 2017 04:53 - CONCLUSION: Persistent dense consolidation right upper lobe and a new small area of consolidation in the left lower lobe. Yomi Lopez MD CT Angiography 12/16/17 0000 Signed Impressions: Service Date/Time: Saturday, December 16, 2017 13:49 - CONCLUSION: 1. Negative for pulmonary emboli. 2. Dense consolidation in the lungs especially the lung bases with several cavitary lesions as above. Findings are most characteristic of pneumonia. Cannot exclude septic embolic disease. No significant effusion. Malachi Hardin MD Objective Remarks GENERAL: 47-year-old female sitting up in chair, On TP SKIN: Warm and dry. HEAD: Normocephalic. Atraumatic. EYES: No scleral icterus. No injection or drainage. ENT: Oral cavity moist NECK: Supple, trachea midline. Trach in place, clean, dry. CARDIOVASCULAR: Nl S1S2. No murmurs. No JVD. RESPIRATORY: Good dominga air movement. Bilateral coarse rhonchi, improved GASTROINTESTINAL: Abdomen soft, non-tender, nondistended. BS active. MUSCULOSKELETAL: No edema. Warm, well perfused. NEURO: Alert awake. follows commands. Generalized weakness, functional quadriparesis. Muscle power slightly improved 3/5, in all extremities A/P Problem List: (1) Acute hypoxemic respiratory failure ICD Code: J96.01 - Acute respiratory failure with hypoxia (2) Septic shock due to methicillin resistant Staphylococcus aureus ICD Code: A41.02 - Sepsis due to Methicillin resistant Staphylococcus aureus; R65.21 - Severe sepsis with septic shock (3) Sepsis due to methicillin resistant Staphylococcus aureus (MRSA) ICD Code: A41.02 - Sepsis due to Methicillin resistant Staphylococcus aureus (4) ARDS (adult respiratory distress syndrome) ICD Code: J80 - Acute respiratory distress syndrome (5) Cavitating pneumonia (6) 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 s/p tracheostomy, PEG. Tolerating TP Neuro/Psych: Critical Illness Polyneuropathy/critical illness myopathy Functional quadriparesis secondary to above Anxiety disorder THC use Continue fentanyl patch 100 mcg/h Continue clonidine 0.1 mg every 8 hours Patient will need long-term rehab for CIM/CIP Received IV steroids and neuromuscular blockade for prolonged duration as the patient was extremely hypoxic with severe ARDS requiring prone ventilation Continue aggressive PT/OT. Up to chair daily Acetaminophen 650 mg liquid by tube every 6 hours as needed fever Respiratory: Acute hypoxemic respiratory failure status post tracheostomy-resolved Severe ARDS-resolved Small right Pneumothorax/Pneumomediastinum Hemoptysis by history Pulmonary cavitary lesions from MRSA pneumonia TP time 30/[address] chest 01/10/18 significant improvement in consolidation, emphysematous appearing blebs right middle lobe and left lower lobe No evidence of invasive pulmonary aspergillosis s/p prone ventilation. s/p Flolan s/p trach 12/30/17 Ventilator bundle. Albuterol/ipratropium aerosols every 4 hours with albuterol aerosols every 2 hours as needed dyspnea Budesonide 0.5/2 1 inhalation twice daily Completed steroid course 12/16 -CT Angio - extensive pneumomediastinum extending into neck and upper chest. Dense consolidation at both lung bases, air bronchograms , 2 cavitary lesions 12/16-bronchoscopy performed by Dr. Klein, no active sites noted for bleeding, moderate purulent mucus bilaterally noted 2 BAL samples sent CTS has followed for Pneumomediastinum-per Dr. Guadarrama no intervention at this time. Dr. Mireles pulmonology following Diamox 500 daily X 3 from 01/07 Cardiovascular: Septic shock- resolved. Bradycardic arrest- resolved. Paroxysmal atrial fibrillation- resolved, no in NSR SVT- resolved. Possible infective endocarditis Elevated troponin- resolved. off vasopressors. On sotalol 40 mg twice daily by Dr. Bray 12/19 Tachycardic, will not add AV kareem blockers secondary to bradycardic arrest Transesophageal echocardiogram 12/20 revealed no signs of endocarditis. Preserved LV function. Trace MR/TR Echo 12/17 showed EF 60-65%. Echo 12/21 EF 50%. Cannot rule out regional wall motion and ability Troponin 1.26 from 3.4 and downward trended Aspirin 81 mg p.o. daily FEN/Renal: Hyponatremia- resolved. Acute intravascular volume overload- persistent. Monitor renal function Electrolytes replacement per protocol. Continue Lasix 20mg Q12. Diuresis to dry weight. Diamox as above GI: Elevated AST and alkaline phosphatase - improving. Hypoalbuminemia Acute protein calorie malnutrition - moderate On tube feeds-Glucerna 1.5 with goal rate 55ml/hr Famotidine 20 mg twice daily GI prophylaxis Docusate sodium/senna 1 tablet twice daily for bowel regimen Having bowel movements. ID: MRSA Bacteremia MRSA pneumonia Worsening sepsis leukocytosis Shahnaz UTI Septic shock- resolved. Completed Zyvox 01/09. IV Vanco anticipated end date 01/27 per ID Voriconazole started for Aspergillus fumigatus 01/08, doubt invasive aspergillosis. No CT evidence of invasive pulmonary aspergillosis Will DC voriconazole and observe C. difficile neg x2 ceftaroline Dcd 12/27/17. Cubicin DCd 12/26 by ID JEANINE revealed no signs of endocarditis 12/20 12/15 [facility] from [place]- MRSA 12/16 Bronch BAL- MRSA [facility] 12/16, 12/17 12/18: MRSA Blood culture 12/19 no growth 12/20 sputum/12/21 BAL MRSA influenza, pneumococcal and Legionella antigens- Negative Sputum 01/01 Aspergillus fumigatus, likely colonization Heme: Leukocytosis Normocytic anemia Monitor CBC. 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 Sliding scale insulin Accu-Cheks every 6 hours to maintain euglycemia/medium regimen. Levemir to 12 units every 12 01/02. Low free T3 and T4 on levothyroxine 25 mcg daily with low T4. 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 Its more appropriate to work up when she is over the critical illness Prophylaxis: GI Prophylaxis Famotidine IV DVT Prophylaxis -- SCDs -heparin SQ Overall impression: Muscle wasting and weight loss, protein calorie malnutrition. Will need detention rehab Level 2 Maribel Pal MD Jan 11, 2018 13:45
[2018-01-11 15:31] LABS: PHOSPHORUS 3.4 MG/DL (2.5-4.9)
[2018-01-11] MEDS: ALPRAZolam 0.5 MG TAB PO PRN (20:56)
[2018-01-12] VITALS (15 sets, daily range): BP systolic 94–118; BP diastolic 48–56; PULSE 88–107; RESP 17–26; TEMP 98.4–99.3; O2SAT 97–100
[2018-01-12] MEDS: VANCOMYCIN 1,000 MG/NS 250 ML IV SCH ×6 (00:22→22:51)
[2018-01-12] MEDS: METOCLOPRAMIDE HCL 10 MG/2 ML VIAL IV PUSH SCH ×5 (00:22→22:50)
[2018-01-12] MEDS: CHLORHEXIDINE GLUCONATE 2 % 1 PACK (2 CLOTHS) TOP SCH (04:00)
[2018-01-12] MEDS: HEPARIN SODIUM - SQ 10,000 UNITS/ML VIAL SQ SCH ×3 (05:16→20:03)
[2018-01-12] MEDS: LEVOTHYROXINE SODIUM 25 MCG TAB PO SCH (05:16)
[2018-01-12] MEDS: cloNIDine HCL 0.1 MG TAB PO SCH ×2 (05:16→13:58)
[2018-01-12] MEDS: INSULIN NovoLIN REGULAR SUPPLEMENTAL SCALE SQ SCH ×3 (05:17→13:59)
[2018-01-12] MEDS: RESP: BUDESONIDE 0.5 MG/2 ML NEB NEB SCH ×2 (07:23→19:55)
[2018-01-12] MEDS: RESP: ALBUTEROL 2.5 MG/IPRATROPIUM 0.5 MG NEB (SCH) NEB ×2 (07:23→16:05)
[2018-01-12] MEDS: ARTIFICIAL TEARS OPTH OINT 3.5 APPLIC/3.5 GM TUBO EACH EYE SCH ×2 (08:00→20:03)
[2018-01-12] MEDS: CHLORHEXIDINE 0.12% (ORAL KIT) 15 ML CUP MT SCH ×2 (08:00→20:00)
[2018-01-12] MEDS: REMOVE OLD DURAGESIC (FENTANYL) PATCH T-DERMAL SCH (09:00)
[2018-01-12] MEDS: FUROSEMIDE 20 MG/2 ML VIAL IV PUSH SCH (10:08)
[2018-01-12] MEDS: ASPIRIN 81 MG CHEW TAB CHEW SCH (10:08)
[2018-01-12] MEDS: MUPIROCIN 2% OINT 1 APPLIC/GM SYR EACH NARE SCH ×3 (10:08→21:00)
[2018-01-12] MEDS: SODIUM CHLORIDE 0.9% FLUSH 10 ML FLUSH IV FLUSH SCH ×3 (10:08→20:04)
[2018-01-12] MEDS: VORICONAZOLE 200 MG TAB PO SCH ×2 (10:08→20:02)
[2018-01-12] MEDS: FAMOTIDINE 20 MG TAB PO SCH ×2 (10:09→20:02)
[2018-01-12] MEDS: INSULIN DETEMIR 100 UNITS/ML VIAL SQ SCH ×2 (10:09→20:45)
[2018-01-12] MEDS: fentaNYL 100 MCG/HR PATCH T-DERMAL SCH (10:10)
[2018-01-12] MEDS: BELLADONNA ALKALOIDS/OPIUM 60 MG SUPP RECTAL PRN (10:12)
--- NOTE | 2018-01-12 16:43 | HHI.CCPN ---
Subjective Remarks/Hospital Course This is a 47-year-old female with a history of anxiety disorder, that presented to [facility] on with complaints of chest pain and dyspnea that has been lasting for the past 4 days. The patient was transferred to [facility]. Imaging and laboratory studies were initially performed which showed a chest x-ray with bilateral patchy airspace consolidation consistent with bronchial pneumonia, and her lactic acid level was noted to be 3.1. The patient's oxygen requirements continue to increase the patient became tachypneic with a respiratory rate in the 40s and tachycardic, heart rate in the 120s. Pulmonology was consulted, CT was performed which revealed no pulmonary emboli , will several cavitary lesions, dense consolidation at both lung bases, air bronchograms and extensive pneumomediastinum extending into the lower neck and upper chest .ICU was requested to see patient. Upon observation the patient was severely dyspneic, with significant accessory muscle movement, violently coughing hemoptysis. Decision made to intubate patient for airway protection. 12/17 Patient is sedated with Diprivan and versed infusion. afebrile. s/p bronch yesterday by Dr. Klein. 12/18 Patient remains sedated with Versed 10mg/hr and Fentanyl 250 mics. Tmax 102.1 yesterday. + MRSA in bronch and GPC/MRSA from [facility] 12/15 from [facility] 12/19: Patient developed respiratory distress and SVT this am with vent dyssynchrony with air trapping and elevated peak pressure. FiO2 increased to 100%, started on Nimbex infusion. Intermittently tachycardic, occasional bradycardia also. EKG shows sinus rhythm. Patient is very critical now. Will consult cardiology for JEANINE, and also regarding SVT. Chest x-ray shows worsening bilateral infiltrates concerning for ARDS 12/20: Remains intubated heavily sedated and neuromuscularly paralyzed to maintain ventilator synchrony and control peak pressures. Chest x-ray shows persistent bilateral infiltrates. JEANINE planned for today. All cultures so far positive for MRSA. Tachy Arrhythmia is better controlled after starting sotalol 12/21: CODE BLUE overnight when patient became bradycardic. Received epinephrine with chest compressions with return of spontaneous relief within 5 minutes according to RN. Currently on peripheral dopamine at 10 mcg/kg/min. FiO2 currently at 100%. Chest x-ray revealed worsening diffuse bilateral pulmonary infiltrates 12/22: T-max 101.1 Fahrenheit. Currently 98.9 Fahrenheit. +2493 cc past 24 hours. No bowel movement. Currently on roto-prone bed on epoprostenol at 50, 000 ng/kg/min aerosolized. On tube feeds Glucerna 1.5 at 20 cc an hour. 12/23: Overnight, when switching from supine to prone position patient 32nd episode of asystole resolved without chest compressions. We are currently patient has been prone position again with very slow with and without. Tolerating tube feeds now. Remains on cisatracurium drip at 4 mcg/min 12/24 Patient remains sedated and intubated. On Diprivan, Fentanyl, Versed in addition to Nimbex and Dopamine @5mics. Afebrile. 12/25 No events overnight. Remains sedated, intubated and on Rotoprone bed. On Dopamine 5 mics and Nimbex. T:99.7 12/26: Remains critically ill remains on prone ventilation. I will change on time/supine time to prospectively 5 hours/1 hour cycles. Increase PEEP to 10 to facilitate prolonged weaning. CXR shows persistent consolidation RUL 12/27: Remains critical but oxygenation stable. Off dopamine but hypotensive now with map of 58. Start on Levophed to keep map above 65. Change prone/ supine cycles to 4 hours each. Discontinue prone therapy in the next 24 hours if stable. WBC count is slightly improved 12/28: Transitioned from a prone bed to Roto-Rest today, tolerated well. Remains on Flolan will start weaning today per protocol. Urine output is excellent with Lasix. Remains on Levophed to maintain map above 65. Discontinue Nimbex today 12/29: hypoxia continues to improve. wbc uptrending, although remains afebrile. cultures NGTD. good diuresis. developing metabolic alkalosis most likely from contraction. 12/30: continues to diurese well. off rota-rest bed. on my evaluation today, however, awake and alert, follows commands. cannot lift hands off bed or head off bed at all. severely weak, most likely from critical illness polymyopathy ( prolonged neuromuscular blockade and steroid use). unable to successfully pass SBT. intubation and mechanical ventilation for > 2 weeks. will require tracheostomy to progress care further. 12/31: Status post trach yesterday. Tolerating SBT. Continues to have significant neuromuscular weakness. Attempt 2-4hour T piece today 01/01: Patient more critical today, WBC increased to 29.8. Diarrhea +. Tachycardic, Did not tolerate Tp today. Placed back on vent. ID has started Diflucan. Check repeat C Diff. 01/02: Tolerated 1 hour of T piece today, currently on CPAP. Muscle strength improving 4 out of 5 on exam today. WBC 27.7 today, slightly improved. Urine output excellent. C. difficile negative 2. Tachycardia persist 01/03: tachycardia somewhat improved. wbc still uptrending. sputum growing mold species, speciation and sensitivities to follow. did tolerate more t-piece time than yesterday. 01/04: wbc still elevated. sputum growing aspergillus. pt doing well on t-piece trials and lasting longer. still very weak and unable to lift hands off bed. patient denies complaints. just on low-dose fentanyl. 01/05: wbc downtrending. continues to lengthen time with t-piece. OOB to stretcher chair. will need long-term acute care level rehab. ROS negative. 01/06: Remains on the vent but tolerating CPAP. Follows commands but weakness persists. No labs today. 01/07: Patient has apnea episodes while she is wide awake. CXR clearing. Will decrease bicarb with Diamox and see if respiratory drive improves. 01/08: Currently on full vent support. Will transition to SBT and T-piece as tolerated. Slight increase in white count noted. Muscle strength remains same 01/09: Remains on the ventilator, tolerated T piece for 7 hours yesterday. Appears more awake alert today. Muscle strength stable. No fever 01/10: Currently on CPAP trials, tolerating T piece during daytime. Will increase T piece time 224 7 as tolerated. WBC count increased to 20,000. Voriconazole started by ID for sputum growing Aspergillus fumigatus-most likely colonization. No evidence of invasive aspergillosis on chest imaging, will discuss with ID 01/11: Sitting up in stretcher chair. On tp since [address] of the chest yesterday shows small areas of basilar consolidation. New emphysematous blebs vs cavity in the right middle lobe and left lower lobe are new. Overall significant improvement 01/12: strength very slowly improving. on t-piece all day. Objective Vital Signs Date Time Temp Pulse Resp B/P (MAP) Pulse Ox O2 Delivery O2 Flow Rate FiO2 01/12/18 08:00 100 01/12/18 08:00 98.7 24 106/51 (69) 99 01/12/18 07:24 T-piece 6.00 35 Intake and Output 01/12/18 01/12/18 01/13/18 08:00 16:00 00:00 Intake Total 1096 ml Output Total 425 ml Balance 671 ml Result Diagram: 01/11/18 0809 01/11/18 1025 Imaging Last Impressions Chest X-Ray 12/24/17 0600 Signed Impressions: Service Date/Time: Sunday, December 24, 2017 04:53 - CONCLUSION: Persistent dense consolidation right upper lobe and a new small area of consolidation in the left lower lobe. Yomi Lopez MD CT Angiography 12/16/17 0000 Signed Impressions: Service Date/Time: Saturday, December 16, 2017 13:49 - CONCLUSION: 1. Negative for pulmonary emboli. 2. Dense consolidation in the lungs especially the lung bases with several cavitary lesions as above. Findings are most characteristic of pneumonia. Cannot exclude septic embolic disease. No significant effusion. Malachi Hardin MD Objective Remarks GENERAL: 47-year-old female sitting up in chair, On TP SKIN: Warm and dry. HEAD: Normocephalic. Atraumatic. EYES: No scleral icterus. No injection or drainage. ENT: Oral cavity moist NECK: Supple, trachea midline. Trach in place, clean, dry. CARDIOVASCULAR: Nl S1S2. No murmurs. No JVD. RESPIRATORY: Good dominga air movement. Bilateral coarse rhonchi, improved GASTROINTESTINAL: Abdomen soft, non-tender, nondistended. MUSCULOSKELETAL: No edema. Warm, well perfused. NEURO: Alert awake. follows commands. Generalized weakness, functional quadriparesis. Muscle power slightly improved 3/5, in all extremities A/P Problem List: (1) Acute hypoxemic respiratory failure ICD Code: J96.01 - Acute respiratory failure with hypoxia (2) Septic shock due to methicillin resistant Staphylococcus aureus ICD Code: A41.02 - Sepsis due to Methicillin resistant Staphylococcus aureus; R65.21 - Severe sepsis with septic shock (3) Sepsis due to methicillin resistant Staphylococcus aureus (MRSA) ICD Code: A41.02 - Sepsis due to Methicillin resistant Staphylococcus aureus (4) ARDS (adult respiratory distress syndrome) ICD Code: J80 - Acute respiratory distress syndrome (5) Cavitating pneumonia (6) 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 s/p tracheostomy, PEG. Tolerating TP. stable for transfer out of ICU. consult hospitalist. Neuro/Psych: Critical Illness Polyneuropathy/critical illness myopathy Functional quadriparesis secondary to above Anxiety disorder THC use Continue fentanyl patch 100 mcg/h Continue clonidine 0.1 mg every 8 hours Patient will need long-term rehab for CIM/CIP Received IV steroids and neuromuscular blockade for prolonged duration as the patient was extremely hypoxic with severe ARDS requiring prone ventilation Continue aggressive PT/OT. Up to chair daily Acetaminophen 650 mg liquid by tube every 6 hours as needed fever Respiratory: Acute hypoxemic respiratory failure status post tracheostomy-resolved Severe ARDS-resolved Small right Pneumothorax/Pneumomediastinum Hemoptysis by history Pulmonary cavitary lesions from MRSA pneumonia TP time 30/[address] chest 01/10/18 significant improvement in consolidation, emphysematous appearing blebs right middle lobe and left lower lobe No evidence of invasive pulmonary aspergillosis s/p prone ventilation. s/p Flolan s/p trach 12/30/17 Ventilator bundle. Albuterol/ipratropium aerosols every 4 hours with albuterol aerosols every 2 hours as needed dyspnea Budesonide 0.5/2 1 inhalation twice daily Completed steroid course 12/16 -CT Angio - extensive pneumomediastinum extending into neck and upper chest. Dense consolidation at both lung bases, air bronchograms , 2 cavitary lesions 12/16-bronchoscopy performed by Dr. Klein, no active sites noted for bleeding, moderate purulent mucus bilaterally noted 2 BAL samples sent CTS has followed for Pneumomediastinum-per Dr. Guadarrama no intervention at this time. Dr. Mireles pulmonology following Cardiovascular: Septic shock- resolved. Bradycardic arrest- resolved. Paroxysmal atrial fibrillation- resolved, no in NSR SVT- resolved. Possible infective endocarditis Elevated troponin- resolved. off vasopressors. On sotalol 40 mg twice daily by Dr. Bray 12/19 Tachycardic, will not add AV kareem blockers secondary to bradycardic arrest Transesophageal echocardiogram 12/20 revealed no signs of endocarditis. Preserved LV function. Trace MR/TR Echo 12/17 showed EF 60-65%. Echo 12/21 EF 50%. Cannot rule out regional wall motion and ability Troponin 1.26 from 3.4 and downward trended Aspirin 81 mg p.o. daily FEN/Renal: Hyponatremia- resolved. Acute intravascular volume overload- persistent. Monitor renal function Electrolytes replacement per protocol. Continue Lasix 20mg Q12. Diuresis to dry weight. GI: Elevated AST and alkaline phosphatase - improving. Hypoalbuminemia Acute protein calorie malnutrition - moderate On tube feeds-Glucerna 1.5 with goal rate 55ml/hr Famotidine 20 mg twice daily GI prophylaxis Docusate sodium/senna 1 tablet twice daily for bowel regimen Having bowel movements. ID: MRSA Bacteremia MRSA pneumonia Worsening sepsis leukocytosis Shahnaz UTI Septic shock- resolved. Completed Zyvox 01/09. IV Vanco anticipated end date 01/27 per ID Voriconazole started for Aspergillus fumigatus 01/08, doubt invasive aspergillosis. No CT evidence of invasive pulmonary aspergillosis Will DC voriconazole and observe C. difficile neg x2 ceftaroline Dcd 12/27/17. Cubicin DCd 12/26 by ID JEANINE revealed no signs of endocarditis 12/20 12/15 BC from [facility]- MRSA 12/16 Bronch BAL- MRSA [facility] 12/16, 12/17 12/18: MRSA Blood culture 12/19 no growth 12/20 sputum/12/21 BAL MRSA influenza, pneumococcal and Legionella antigens- Negative Sputum 01/01 Aspergillus fumigatus, likely colonization Heme: Leukocytosis Normocytic anemia Monitor CBC. 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 Sliding scale insulin Accu-Cheks every 6 hours to maintain euglycemia/medium regimen. Levemir to 12 units every 12 01/02. Low free T3 and T4 on levothyroxine 25 mcg daily with low T4. 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 Its more appropriate to work up when she is over the critical illness Prophylaxis: GI Prophylaxis Famotidine IV DVT Prophylaxis -- SCDs -heparin SQ Overall impression: Muscle wasting and weight loss, protein calorie malnutrition. 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
[2018-01-12] MEDS ORDERED: METOPROLOL TARTRATE 25 MG TAB PO PRN (16:45)
[2018-01-12] MEDS: ALPRAZolam 0.5 MG TAB PO PRN (20:45)
[2018-01-12] MEDS: cloNIDine HCL 0.3 MG TAB PO SCH (22:50)
[2018-01-13] VITALS (10 sets, daily range): BP systolic 90–115; BP diastolic 44–56; PULSE 82–92; RESP 11–29; TEMP 97.7–98.9; O2SAT 96–100
[2018-01-13] MEDS: RESP: ALBUTEROL 2.5 MG/IPRATROPIUM 0.5 MG NEB (SCH) NEB ×3 (00:23→14:13)
[2018-01-13] MEDS: CHLORHEXIDINE GLUCONATE 2 % 1 PACK (2 CLOTHS) TOP SCH (04:00)
[2018-01-13] MEDS: HEPARIN SODIUM - SQ 10,000 UNITS/ML VIAL SQ SCH ×3 (04:28→23:04)
[2018-01-13] MEDS: LEVOTHYROXINE SODIUM 25 MCG TAB PO SCH (05:11)
[2018-01-13] MEDS: cloNIDine HCL 0.3 MG TAB PO SCH ×3 (05:11→23:04)
[2018-01-13] MEDS: INSULIN NovoLIN REGULAR SUPPLEMENTAL SCALE SQ SCH ×4 (05:54→23:07)
[2018-01-13] MEDS: METOCLOPRAMIDE HCL 10 MG/2 ML VIAL IV PUSH SCH ×3 (07:00→23:03)
--- NOTE | 2018-01-13 07:31 | HHI.PR ---
Subjective Remarks Patient seen and examined this am. Sitting in bed, appears comfortable. T- piece with supplemental O2. She endorses some abdominal pain around peg tube site. She denies feeling SOB or having CP. States she has family, just not local. She has gotten up to the chair with assistance. Objective Vital Signs Date Time Temp Pulse Resp B/P (MAP) Pulse Ox O2 Delivery O2 Flow Rate FiO2 01/13/18 04:00 98.8 92 18 105/47 (66) 97 01/13/18 04:00 92 01/13/18 00:00 90 01/13/18 00:00 98.6 90 23 92/50 (64) 96 01/12/18 22:00 94 01/12/18 20:00 99 01/12/18 20:00 98.7 99 25 105/56 (72) 100 01/12/18 19:57 99 T-piece 28 01/12/18 18:46 100 T-piece 5.00 28 01/12/18 18:00 101 01/12/18 16:00 98.8 94 17 105/52 (69) 99 01/12/18 16:00 94 01/12/18 14:00 100 01/12/18 12:00 98.4 107 20 112/53 (72) 97 01/12/18 12:00 107 01/12/18 10:00 102 01/12/18 08:00 100 01/12/18 08:00 98.7 100 24 106/51 (69) 99 01/12/18 07:24 100 T-piece 6.00 35 I/O 01/12/18 01/12/18 01/12/18 01/13/18 01/13/18 01/13/18 07:00 15:00 23:00 07:00 15:00 23:00 Intake Total 1096 ml 891 ml Output Total 425 ml 1000 ml Balance 671 ml -109 ml IV Total 501 ml 250 ml Tube Feeding 595 ml 541 ml Other 100 ml Output Urine Total 325 ml 600 ml Stool Total 100 ml 400 ml Result Diagram: 01/11/18 0809 01/11/18 1025 Imaging Last Impressions Chest X-Ray 01/10/18 0600 Signed Impressions: Service Date/Time: January 03:55 - CONCLUSION: No significant change in aeration Demarco Gupta MD Chest CT 01/10/18 0000 Signed Impressions: Service Date/Time: January 17:23 - CONCLUSION: 1. There are areas of dense consolidation in the lung bases. These have significantly improved when compared to the prior exam. 2. Scattered emphysematous blebs within the pulmonary parenchyma. 3. Small area consolidation in the right middle lobe. 4. The emphysematous blebs in the right middle lobe and left lower lobe are new. The overall appearance of the chest is improved when compared to the previous study of 12/16/17. Aadm Latif MD Abdomen X-Ray 01/09/18 0000 Signed Impressions: Service Date/Time: Tuesday, January 09, 2018 17:16 - CONCLUSION: No dilated loops of small bowel. Gastrostomy in place. Yomi Lopez MD Abdomen/Pelvis CT 01/04/18 0000 Signed Impressions: Service Date/Time: Friday, January 05, 2018 00:57 - CONCLUSION: Rectal tube in good position. Some asymmetry of the renal nephrograms the left one being slightly delayed of uncertain etiology. Conceivably pyelonephritis would be within the differential on the left based on the patient's symptoms of leukocytosis. Ravinder Krause MD CT Angiography 12/16/17 0000 Signed Impressions: Service Date/Time: Saturday, December 16, 2017 13:49 - CONCLUSION: 1. Negative for pulmonary emboli. 2. Dense consolidation in the lungs especially the lung bases with several cavitary lesions as above. Findings are most characteristic of pneumonia. Cannot exclude septic embolic disease. No significant effusion. Malachi Hardin MD Procedures BiPAP Objective Remarks GENERAL: WN, WD female laying comfortably in bed in NAD. SKIN: Warm and dry. HEENT: Pupils equal and round. MMM. NECK: T-piece in place HEART: RRR no m/r/g. LUNGS: CTAB without wheezes or crackles. ABDOMEN: Soft, +peg tube mid abdomen, site is clean with no signs of infection. EXTREMITIES: No LE edema or calf tenderness. NEURO: Awake and alert.Diffuse weakness, she has decreased sensor technician strength bilat, she can lift her legs against gravity and wiggle her toes. PSYCH: Appropriate mood and affect. A/P Problem List: (1) Anxiety ICD Code: F41.9 - Anxiety disorder, unspecified Status: Chronic (2) ARDS (adult respiratory distress syndrome) ICD Code: J80 - Acute respiratory distress syndrome (3) Sepsis due to methicillin resistant Staphylococcus aureus (MRSA) ICD Code: A41.02 - Sepsis due to Methicillin resistant Staphylococcus aureus (4) Acute hypoxemic respiratory failure ICD Code: J96.01 - Acute respiratory failure with hypoxia (5) Paroxysmal atrial fibrillation ICD Code: I48.0 - Paroxysmal atrial fibrillation Assessment and Plan In summary this is a 47-year-old female patient who presented to [facility] in December with chest pain and dyspnea. She was then transferred to [facility]. Chest x-ray at that time was notable for bilateral consolidation and she was noted to have an elevated lactic acid. Her oxygen requirement continued to increase during her hospitalization. Hematology was consulted and a CT was performed which showed several cavitary lesions, dense consolidation at both lung bases, air bronchograms and extensive pneumo mediastinum extending into the lower neck and upper chest. The patient's parents respiratory distress and hemoptysis, and she required intubation. She required pressors. The patient coded on's 12/21, she received chest compressions and epinephrine and had Ross within 5 minutes. Patient had a trach and PEG placed. MRSA pneumonia ARDS- resolved - ID following - Completed Zyvox 01/09. IV Vanco anticipated end date 01/27 per ID - Voriconazole started for Aspergillus fumigatus 01/08 - C. difficile neg x2 - ceftaroline Dcd 12/27/17. Cubicin DCd 12/26 by ID - JEANINE revealed no signs of endocarditis 12/20 - 12/16 bronchoscopy showed no active sites noted for bleeding, moderate purulent mucus bilat - Cultures - 12/15 BC from [facility]- MRSA - 12/16 Bronch BAL- MRSA - BC 12/16, 12/17 12/18: MRSA - Blood culture 12/19 no growth - 12/20 sputum/12/21 BAL MRSA - influenza, pneumococcal and Legionella antigens- Negative - Sputum 01/01 Aspergillus fumigatus, likely colonization Muscle Wasting - PT, OT - will need terminal supervisor rehab SVT & paroxysmal a-fib - resolved - avoid av kareem blockers secondary to bardycardia arrest she experiences PEG tube placement - placed by GI - no signs of infection at site - tolerating tube feeds Trache - Dr. Hernandez following - s/p vent weaned to cpap, supplemental oxygen Discharge Planning D/C pending continued clinical improvement and stabilization. CM working on placement. Stefania Shipley MD Jan 13, 2018 07:31
[2018-01-13] MEDS: CHLORHEXIDINE 0.12% (ORAL KIT) 15 ML CUP MT SCH ×2 (08:00→20:00)
[2018-01-13] MEDS: RESP: BUDESONIDE 0.5 MG/2 ML NEB NEB SCH ×2 (08:18→21:02)
[2018-01-13] MEDS: ARTIFICIAL TEARS OPTH OINT 3.5 APPLIC/3.5 GM TUBO EACH EYE SCH ×2 (09:00→23:03)
[2018-01-13] MEDS: INSULIN DETEMIR 100 UNITS/ML VIAL SQ SCH ×2 (09:52→21:00)
[2018-01-13] MEDS: FUROSEMIDE 20 MG/2 ML VIAL IV PUSH SCH (09:54)
[2018-01-13] MEDS: VORICONAZOLE 200 MG TAB PO SCH ×2 (09:54→23:03)
[2018-01-13] MEDS: FAMOTIDINE 20 MG TAB PO SCH ×2 (09:54→23:04)
[2018-01-13] MEDS: SODIUM CHLORIDE 0.9% FLUSH 10 ML FLUSH IV FLUSH SCH ×3 (09:54→23:01)
[2018-01-13] MEDS: ASPIRIN 81 MG CHEW TAB CHEW SCH (09:54)
[2018-01-13] MEDS: VANCOMYCIN 1,000 MG/NS 250 ML IV SCH ×4 (09:57→23:01)
[2018-01-13] MEDS: ALPRAZolam 0.5 MG TAB PO PRN (23:04)
[2018-01-13] MEDS: MUPIROCIN 2% OINT 1 APPLIC/GM SYR EACH NARE SCH (23:04)
[2018-01-14] VITALS (12 sets, daily range): BP systolic 86–116; BP diastolic 47–63; PULSE 79–110; RESP 16–20; TEMP 97.6–98.9; O2SAT 94–99
[2018-01-14] MEDS: RESP: ALBUTEROL 2.5 MG/IPRATROPIUM 0.5 MG NEB (SCH) NEB ×3 (01:53→16:41)
[2018-01-14] MEDS: CHLORHEXIDINE GLUCONATE 2 % 1 PACK (2 CLOTHS) TOP SCH (04:00)
[2018-01-14] MEDS: HEPARIN SODIUM - SQ 10,000 UNITS/ML VIAL SQ SCH ×3 (04:00→22:03)
[2018-01-14] MEDS: INSULIN NovoLIN REGULAR SUPPLEMENTAL SCALE SQ SCH ×4 (05:21→23:50)
[2018-01-14] MEDS: METOCLOPRAMIDE HCL 10 MG/2 ML VIAL IV PUSH SCH ×3 (05:21→22:13)
[2018-01-14] MEDS: LEVOTHYROXINE SODIUM 25 MCG TAB PO SCH (05:22)
[2018-01-14] MEDS: cloNIDine HCL 0.3 MG TAB PO SCH ×3 (05:24→22:02)
[2018-01-14 07:32] LABS: AUTOMATED NEUTROPHIL # 5.4 TH/MM3 (1.8-7.7); BASOPHIL # 0.1 TH/MM3 (0-0.2); BASOPHIL % 0.7 % (0.0-2.0); EOSINOPHIL # 0.4 TH/MM3 (0-0.4); EOSINOPHIL % 5.2 % (0.0-4.0); HEMATOCRIT 29.4 % (35.0-46.0); LYMPH % 14.3 % (9.0-44.0); LYMPHOCYTE # 1.1 TH/MM3 (1.0-4.8); MEAN CELL VOLUME 88.7 FL (80.0-100.0); MEAN CORPUSCULAR HEMOGLOBIN 30.3 PG (27.0-34.0); MEAN CORPUSCULAR HGB CONC 34.1 % (32.0-36.0); MEAN PLATELET VOLUME 8.3 FL (7.0-11.0); MONO % 9.1 % (0.0-8.0); MONOCYTE # 0.7 TH/MM3 (0-0.9); NEUT % 70.7 % (16.0-70.0); PLATELET COUNT 169 TH/MM3 (150-450); RED BLOOD COUNT 3.32 MIL/MM3 (4.00-5.30); RED CELL DISTRIBUTION WIDTH 14.4 % (11.6-17.2); WHITE BLOOD COUNT 7.6 TH/MM3 (4.0-11.0)
[2018-01-14 07:54] LABS: BICARBONATE 26.7 MEQ/L (21.0-32.0); CALCIUM 8.8 MG/DL (8.5-10.1); CREATININE 0.46 MG/DL (0.50-1.00)
[2018-01-14] MEDS: CHLORHEXIDINE 0.12% (ORAL KIT) 15 ML CUP MT SCH ×2 (08:00→20:00)
[2018-01-14] MEDS: RESP: BUDESONIDE 0.5 MG/2 ML NEB NEB SCH ×2 (08:13→21:04)
[2018-01-14] MEDS: ARTIFICIAL TEARS OPTH OINT 3.5 APPLIC/3.5 GM TUBO EACH EYE SCH ×2 (09:00→21:00)
[2018-01-14] MEDS: INSULIN DETEMIR 100 UNITS/ML VIAL SQ SCH ×2 (09:00→22:02)
[2018-01-14] MEDS: VORICONAZOLE 200 MG TAB PO SCH ×2 (09:00→22:02)
[2018-01-14] MEDS: SODIUM CHLORIDE 0.9% FLUSH 10 ML FLUSH IV FLUSH SCH ×3 (09:00→21:00)
--- NOTE | 2018-01-14 09:29 | HHI.IDPN ---
Subjective Subjective Remarks Patient is a 47-year-old female, who initially presented to [facility] ED complaining of 4 day history of chest pain and shortness of breath. In have any other history. She was apparently coughing and was bringing up some brownish phlegm. There was no mention of any fever or chills. No nausea or vomiting. No urinary complaints. Chest x-ray showed bilateral patchy basilar infiltrates. CTA did not show any pulmonary embolism, showed bilateral infiltrates with some cavitary lesions noted. She was transferred to the main hospital, and she apparently had some blood in the sputum. She ended up getting intubated. [facility] did bronchoscopy on her. Patient currently sedated postintubation. Her blood pressure is okay and she is not hypotensive. She is tachycardic. Infectious disease consultation has been requested to evaluate the patient with pneumonia Events reviewed Nores reviewed Patient is now out of ICU Doing well on Tpiece S/P trach and PEG. Temps ok BP ok WBC down to normal CXR stable CT chest - much improved as far as consolidation Tolerating TF Antibiotics vanco IV Current Medications Medications (Trade) Dose Ordered Sig/Marily Route Start Time Stop Time Status Last Admin (NS Flush) 2 ml UNSCH PRN IV FLUSH 12/15/17 22:30 (NS Flush) 2 ml BID IV FLUSH 12/16/17 09:00 01/13/18 23:01 (Robitussin Dm 200-20 Mg/10 ml Liq) 10 ml Q4H PRN PO 12/15/17 22:30 Future Hold (Heparin Inj) 5,000 units Q8H SQ 12/16/17 12:00 Future hold 01/13/18 23:04 (Morphine Inj) 1 mg Q4H PRN IM 12/16/17 09:15 Future Hold 12/16/17 10:11 (Mucinex Er) 600 mg BID PO 12/16/17 09:15 Future Hold 12/16/17 10:51 Miscellaneous Information 1 Q361D XX 12/16/17 16:45 (Chlorhexidine 2% Cloth) Taper DAILY@04 TOP 12/17/17 04:00 12/13/18 03:59 01/13/18 04:00 (Chlorhexidine 2% Cloth) 3 pack UNSCH PRN TOP 12/16/17 16:45 (Milk Of Magnesia Liq) 30 ml Q12H PRN PO 12/16/17 16:45 (Senokot) 17.2 mg Q12H PRN PO 12/16/17 16:45 12/28/17 08:39 (Dulcolax Supp) 10 mg DAILY PRN RECTAL 12/16/17 16:45 (Lactulose Liq) 30 ml DAILY PRN PO 12/16/17 16:45 (Peridex 0.12% Liq) 15 ml BID@08,20 MT 12/16/17 20:00 01/13/18 08:00 Potassium Chloride 100 ml @ 50 mls/hr Q2H PRN IV 12/17/17 07:45 12/31/17 09:33 Potassium Chloride 100 ml @ 50 mls/hr Q2H PRN IV 12/17/17 07:45 (K-Lyte Cl Eff) 50 meq UNSCH PRN PO 12/17/17 07:45 Potassium Chloride 100 ml @ 25 mls/hr UNSCH PRN IV 12/17/17 07:45 01/01/18 07:03 Potassium Chloride 100 ml @ 50 mls/hr Q2H PRN IV 12/17/17 07:45 01/10/18 08:55 Magnesium Sulfate 4 gm/Sodium Chloride 100 ml @ 50 mls/hr UNSCH PRN IV 12/17/17 07:45 (Mag-Ox) 800 mg UNSCH PRN PO 12/17/17 07:45 Magnesium Sulfate 2 gm/Sodium Chloride 100 ml @ 50 mls/hr UNSCH PRN IV 12/17/17 07:45 (K-Phos) 2,000 mg Q4H PRN PO 12/17/17 07:45 12/17/17 23:49 Sodium Phosphate 30 mmol/Sodium Chloride 250 ml @ 42 mls/hr UNSCH PRN IV 12/17/17 07:45 12/18/17 08:40 (K-Phos) 2,000 mg UNSCH PRN PO/TUBE 12/17/17 07:45 Potassium Phosphate 30 mmol/ Sodium Chloride 260 ml @ 42 mls/hr UNSCH PRN IV 12/17/17 07:45 12/19/17 07:57 (Albuterol Neb) 2.5 mg Q2HR NEB PRN NEB 12/21/17 08:30 01/10/18 07:54 (Pulmicort Respule Neb) 0.5 mg Q12HR NEB NEB 12/21/17 20:00 01/14/18 08:13 (NS Flush) DAILY IV FLUSH 12/22/17 09:00 01/13/18 09:55 (NS Flush) UNSCH PRN IV FLUSH 12/21/17 09:15 12/28/17 21:22 (Bactroban Nasal 2% Oint) 1 applic Taper BID EACH NARE 12/21/17 21:00 12/17/18 20:59 01/13/18 23:04 (Lacrilube Opht Oint) 1 applic Q12HR EACH EYE 12/21/17 10:00 01/13/18 23:03 (D50w (Vial) Inj) 50 ml UNSCH PRN IV PUSH 12/21/17 09:15 01/12/18 00:23 (Glucagon Inj) 1 mg UNSCH PRN OTHER 12/21/17 09:15 (NovoLIN R SUPPLEMENTAL SCALE) 1 Q6HR SQ 12/21/17 12:00 01/12/18 13:59 (Tylenol 650 Mg/ 20 ml Liq) 650 mg Q6H PRN NG 12/21/17 09:30 01/02/18 08:21 (Pill Splitter) 1 ea UNSCH PRN OTHER 12/21/17 21:00 (Aspirin Chew) 81 mg DAILY CHEW 12/22/17 09:00 01/13/18 09:54 (Cathflo Activase Inj) 2 mg Q2H PRN INTRACATH 12/22/17 14:15 12/22/17 14:37 (Synthroid) 25 mcg DAILY@0600 PO 12/23/17 06:00 01/14/18 05:22 (Reglan Inj) 5 mg Q8H PRN IV PUSH 12/24/17 17:45 12/27/17 01:50 Pharmacy Profile Note 0 ml @ 0 mls/hr UNSCH OTHER 12/26/17 14:15 (Brethine Inj) 1 mg UNSCH PRN SQ 12/27/17 08:15 (Reglan Inj) 5 mg Q8H IV PUSH 12/28/17 15:00 01/14/18 05:21 (Xanax) 0.5 mg Q8H PRN PO 12/30/17 11:00 01/13/18 23:04 (Pepcid) 20 mg BID PO 01/01/18 21:00 01/13/18 23:04 (Levemir Inj) 12 units Q12HR SQ 01/02/18 21:00 01/13/18 09:52 (Lasix Inj) 20 mg DAILY IV PUSH 01/08/18 09:00 01/13/18 09:54 (Vfend) 200 mg Q12HR PO 01/08/18 11:00 01/13/18 23:03 (Duragesic 100 Mcg Patch.72 Hr) 1 patch Q3D T-DERMAL 01/09/18 09:00 01/12/18 10:10 Miscellaneous Information 1 Q3D T-DERMAL 01/09/18 09:00 01/12/18 09:00 Vancomycin HCl 1000 mg/Sodium Chloride 250 ml @ 250 mls/hr Q12H IV 01/09/18 11:00 01/13/18 23:01 (B & O Supp) 60 mg Q12H PRN RECTAL 01/10/18 00:45 01/12/18 10:12 (Duoneb Neb) 1 ampule Q8HR NEB NEB 01/10/18 16:00 01/14/18 08:13 (Catapres) 0.3 mg Q8HR PO 01/12/18 22:00 01/14/18 05:24 (Lopressor) 25 mg Q8H PRN PO 01/12/18 16:45 Lines PIV Past Medical History Anxiety Past Surgical History Cholecystectomy Hysterectomy Allergies: Coded Allergies: No Known Allergies (Unverified , 12/15/17) Objective . Vital Signs Date Time Temp Pulse Resp B/P (MAP) Pulse Ox O2 Delivery O2 Flow Rate FiO2 01/14/18 08:20 99 T-piece 28 01/14/18 08:00 98.8 86 20 86/53 (64) 98 01/14/18 04:00 97.6 80 20 110/59 (76) 98 01/14/18 04:00 81 01/14/18 00:00 79 01/14/18 00:00 98.0 94 18 98/58 (71) 94 01/13/18 21:05 98 T-piece 28 01/13/18 20:00 82 01/13/18 20:00 97.7 91 18 115/56 (75) 98 01/13/18 20:00 T-Piece 5.00 28 Humidified 01/13/18 18:51 98.0 86 17 108/54 (72) 01/13/18 16:00 88 01/13/18 16:00 98.9 88 18 90/44 (59) 96 01/13/18 12:25 98.8 91 11 108/53 (71) 100 01/13/18 12:00 98.8 88 11 108/53 (71) 99 01/13/18 12:00 98.8 87 29 108/53 (71) 99 01/13/18 12:00 92 . Laboratory Tests Test 01/14/18 06:40 White Blood Count 7.6 TH/MM3 Red Blood Count 3.32 MIL/MM3 Hemoglobin 10.0 GM/DL Hematocrit 29.4 % Mean Corpuscular Volume 88.7 FL Mean Corpuscular Hemoglobin 30.3 PG Mean Corpuscular Hemoglobin Concent 34.1 % Red Cell Distribution Width 14.4 % Platelet Count 169 TH/MM3 Mean Platelet Volume 8.3 FL Neutrophils (%) (Auto) 70.7 % Lymphocytes (%) (Auto) 14.3 % Monocytes (%) (Auto) 9.1 % Eosinophils (%) (Auto) 5.2 % Basophils (%) (Auto) 0.7 % Neutrophils # (Auto) 5.4 TH/MM3 Lymphocytes # (Auto) 1.1 TH/MM3 Monocytes # (Auto) 0.7 TH/MM3 Eosinophils # (Auto) 0.4 TH/MM3 Basophils # (Auto) 0.1 TH/MM3 CBC Comment DIFF FINAL Differential Comment Laboratory Tests Test 01/14/18 06:40 Blood Urea Nitrogen 28 MG/DL Creatinine 0.46 MG/DL Random Glucose 108 MG/DL Calcium Level 8.8 MG/DL Sodium Level 140 MEQ/L Potassium Level 4.1 MEQ/L Chloride Level 106 MEQ/L Carbon Dioxide Level 26.7 MEQ/L Anion Gap 7 MEQ/L Estimat Glomerular Filtration Rate 146 ML/MIN Imaging Abdomen/Pelvis CT 01/04/18 0000 Signed Impressions: Service Date/Time: Friday, January 05, 2018 00:57 - CONCLUSION: Rectal tube in good position. Some asymmetry of the renal nephrograms the left one being slightly delayed of uncertain etiology. Conceivably pyelonephritis would be within the differential on the left based on the patient's symptoms of leukocytosis. Ravinder Krause MD Chest X-Ray 01/02/18599 Signed Impressions: Service Date/Time: Tuesday, January 02, 2018 03:45 - CONCLUSION: 1. Residual patchy densities right upper lobe and left lower lobe. Miguel Lynne MD CT Angiography 12/16/17 0000 Signed Impressions: Service Date/Time: Saturday, December 16, 2017 13:49 - CONCLUSION: 1. Negative for pulmonary emboli. 2. Dense consolidation in the lungs especially the lung bases with several cavitary lesions as above. Findings are most characteristic of pneumonia. Cannot exclude septic embolic disease. No significant effusion. Malachi Hardin MD Chest X-Ray 01/02/18599 Signed Impressions: Service Date/Time: Tuesday, January 02, 2018 03:45 - CONCLUSION: 1. Residual patchy densities right upper lobe and left lower lobe. Miguel Lynne MD Chest X-Ray 01/01/18599 Signed Impressions: Service Date/Time: Monday, January 01, 2018 02:48 - CONCLUSION: Improved aeration of the right lung with minimal bibasilar densities. Miguel Lynne MD Physical Exam GENERAL: Awake and following commands, NAD. SKIN: Warm and dry. No rash EYES: non icteric ENT: moist mucosae, no thrush NECK: Tracheostomy site ok CARDIOVASCULAR: HS audible. RESPIRATORY: Coarse BS dominga. Decreased at bases. ABDOMEN: soft , not tender, not distended BS+. PEG tube site ok. EXTREMITIES: Improving edema : clear yellow urine NEUROLOGICAL: Awake, responding. All extremities very weak PSYCHIATRIC: Awake, and cooperative LINE: No evidence of infection Assessment & Plan Remarks IMPRESSION Sepsis present, high grade, on admission, has MRSA on blood cultures - S/P arrest - last (+) BC 12/18 Bilateral pneumonia, some with cavitation, last CT did not show any cavitation - C/S with MRSA - CXR improving; CT improving Very worrisome for endocarditis - clinically , but JEANINE negative Respiratory failure. - S/P trach - CXR improving Leukocytosis, decreasing Diarrhea, C diff negative x 2 RECOMMENDATION Continue IV Vanco - anticipate prob 6 weeks from last (+) BC - anticipated end date 01/28 Continue Voriconazole (Aspergillus fumigatus can cause invasive pulm disease and bleeding) for now - likely contaminant - check serum galactomannan Monitor progress Liliam Su MD Jan 14, 2018 09:29
[2018-01-14] MEDS: FAMOTIDINE 20 MG TAB PO SCH ×2 (09:34→22:02)
[2018-01-14] MEDS: ASPIRIN 81 MG CHEW TAB CHEW SCH (09:34)
[2018-01-14] MEDS: FUROSEMIDE 20 MG/2 ML VIAL IV PUSH SCH (09:35)
[2018-01-14] MEDS: MUPIROCIN 2% OINT 1 APPLIC/GM SYR EACH NARE SCH ×2 (09:35→21:00)
[2018-01-14] MEDS: VANCOMYCIN 1,000 MG/NS 250 ML IV SCH ×4 (11:52→22:12)
--- NOTE | 2018-01-14 14:04 | HHI.PR ---
Subjective Remarks No distress when seen. Patient finds no pain. She has global weakness. She has a tracheostomy. Physical and respiratory status or complications of sepsis pneumonia which converted to ARDS, and along term ventilation. Objective Vital Signs Date Time Temp Pulse Resp B/P (MAP) Pulse Ox O2 Delivery O2 Flow Rate FiO2 01/14/18 13:22 99 T-Piece 28 01/14/18 10:32 90 01/14/18 10:32 99 T-Piece 28 01/14/18 08:20 99 T-piece 28 01/14/18 08:00 98.8 86 20 86/53 (64) 98 01/14/18 04:00 97.6 80 20 110/59 (76) 98 01/14/18 04:00 81 01/14/18 00:00 79 01/14/18 00:00 98.0 94 18 98/58 (71) 94 01/13/18 21:05 98 T-piece 28 01/13/18 20:00 82 01/13/18 20:00 97.7 91 18 115/56 (75) 98 01/13/18 20:00 T-Piece 5.00 28 Humidified 01/13/18 18:51 98.0 86 17 108/54 (72) 01/13/18 16:00 88 01/13/18 16:00 98.9 88 18 90/44 (59) 96 I/O 01/13/18 01/13/18 01/13/18 01/14/18 01/14/18 01/14/18 07:00 15:00 23:00 07:00 15:00 23:00 Intake Total 891 ml 714 ml Output Total 1000 ml 1250 ml 300 ml Balance -109 ml -1250 ml 414 ml Intake Oral 0 ml IV Total 250 ml 250 ml Tube Feeding 541 ml 404 ml Tube Irrigant 60 ml Other 100 ml Output Urine Total 600 ml 950 ml 300 ml Stool Total 400 ml 300 ml # Bowel Movements 0 Result Diagram: 01/14/1840 01/14/18 0640 Procedures BiPAP Objective Remarks GENERAL: NAD, A&Ox3 HEAD: Normocephalic. NECK: Supple, trachea midline. No lymphadenopathy. Tracheostomy midline. EYES: No scleral icterus. No injection or drainage. CARDIOVASCULAR: Regular rate and rhythm without murmurs, gallops, or rubs. RESPIRATORY: Breath sounds equal bilaterally. No accessory muscle use. GASTROINTESTINAL: Abdomen soft, non-tender, nondistended. MUSCULOSKELETAL: No cyanosis, or edema. SKIN: Warm and dry. NEURO: No focal neurological deficitis. Diffuse weakness. Unable to move limbs against gravity. A/P Problem List: (1) Pneumonia ICD Code: J18.9 - Pneumonia, unspecified organism Status: Acute (2) Septic shock due to methicillin resistant Staphylococcus aureus ICD Code: A41.02 - Sepsis due to Methicillin resistant Staphylococcus aureus; R65.21 - Severe sepsis with septic shock (3) ARDS (adult respiratory distress syndrome) ICD Code: J80 - Acute respiratory distress syndrome (4) Bilateral pneumonia ICD Code: J18.9 - Pneumonia, unspecified organism Status: Acute (5) Sepsis ICD Code: A41.9 - Sepsis, unspecified organism Status: Acute (6) Cavitating pneumonia Assessment and Plan 47-year-old female admitted secondary to sepsis with pneumonia which converted into ARDS. 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
--- NOTE | 2018-01-14 16:36 | HHI.PR ---
Subjective Remarks alert no distress on tbar since yesterday Objective Vital Signs Date Time Temp Pulse Resp B/P (MAP) Pulse Ox O2 Delivery O2 Flow Rate FiO2 01/14/18 16:28 110 01/14/18 13:22 99 T-Piece 28 01/14/18 12:00 98.8 96 18 107/47 (67) 99 01/14/18 10:32 90 01/14/18 10:32 99 T-Piece 28 01/14/18 08:20 99 T-piece 28 01/14/18 08:00 98.8 86 20 86/53 (64) 98 01/14/18 04:00 97.6 80 20 110/59 (76) 98 01/14/18 04:00 81 01/14/18 00:00 79 01/14/18 00:00 98.0 94 18 98/58 (71) 94 01/13/18 21:05 98 T-piece 28 01/13/18 20:00 82 01/13/18 20:00 97.7 91 18 115/56 (75) 98 01/13/18 20:00 T-Piece 5.00 28 Humidified 01/13/18 18:51 98.0 86 17 108/54 (72) I/O 01/13/18 01/13/18 01/13/18 01/14/18 01/14/18 01/14/18 07:00 15:00 23:00 07:00 15:00 23:00 Intake Total 891 ml 714 ml Output Total 1000 ml 1250 ml 300 ml Balance -109 ml -1250 ml 414 ml Intake Oral 0 ml IV Total 250 ml 250 ml Tube Feeding 541 ml 404 ml Tube Irrigant 60 ml Other 100 ml Output Urine Total 600 ml 950 ml 300 ml Stool Total 400 ml 300 ml # Bowel Movements 0 Result Diagram: 01/14/18 0640 01/14/18 0640 Procedures BiPAP Objective Remarks GENERAL: sedated on vent support SKIN: Warm and dry. HEAD: Atraumatic. Normocephalic. EYES: Pupils equal and round. No scleral icterus. No injection or drainage. ENT: No nasal bleeding or discharge. Mucous membranes pink and moist. NECK: Trachea midline. No JVD. CARDIOVASCULAR: Regular rate and rhythm. RESPIRATORY: No accessory muscle use. Clear to auscultation. Breath sounds equal bilaterally. GASTROINTESTINAL: Abdomen soft, non-tender, nondistended. Hepatic and splenic margins not palpable. MUSCULOSKELETAL: Extremities without clubbing, cyanosis, or edema. No obvious deformities. NEUROLOGICAL: Awake and alert. No obvious cranial nerve deficits. Motor grossly within normal limits. Five out of 5 muscle strength in the arms and legs. Normal speech. PSYCHIATRIC: Appropriate mood and affect; insight and judgment normal. Assessment and Plan Assessment and Plan imp: ALERT, TRACHEOSTOMY IN PLACE respiratory failure/ plan O2 as needed pulm toilet Increase activity Ileana Tejeda MD Jan 14, 2018 16:36
[2018-01-14] MEDS: ALPRAZolam 0.5 MG TAB PO PRN (22:10)
[2018-01-15] VITALS (10 sets, daily range): BP systolic 100–124; BP diastolic 50–60; PULSE 77–114; RESP 16–20; TEMP 98.5–99; O2SAT 96–99
[2018-01-15] MEDS: HEPARIN SODIUM - SQ 10,000 UNITS/ML VIAL SQ SCH ×3 (03:06→22:26)
[2018-01-15] MEDS: CHLORHEXIDINE GLUCONATE 2 % 1 PACK (2 CLOTHS) TOP SCH (03:06)
[2018-01-15] MEDS: INSULIN NovoLIN REGULAR SUPPLEMENTAL SCALE SQ SCH ×3 (05:26→17:00)
[2018-01-15] MEDS: cloNIDine HCL 0.3 MG TAB PO SCH ×3 (05:26→22:27)
[2018-01-15] MEDS: LEVOTHYROXINE SODIUM 25 MCG TAB PO SCH (05:26)
[2018-01-15] MEDS: METOCLOPRAMIDE HCL 10 MG/2 ML VIAL IV PUSH SCH ×3 (06:10→22:27)
[2018-01-15 07:13] LABS: AUTOMATED NEUTROPHIL # 5.1 TH/MM3 (1.8-7.7); BASOPHIL % 0.6 % (0.0-2.0); EOSINOPHIL # 0.4 TH/MM3 (0-0.4); HEMATOCRIT 28.2 % (35.0-46.0); HEMOGLOBIN 9.7 GM/DL (11.6-15.3); LYMPH % 16.7 % (9.0-44.0); LYMPHOCYTE # 1.2 TH/MM3 (1.0-4.8); MEAN CELL VOLUME 87.9 FL (80.0-100.0); MEAN CORPUSCULAR HEMOGLOBIN 30.3 PG (27.0-34.0); MEAN CORPUSCULAR HGB CONC 34.4 % (32.0-36.0); MONO % 9.1 % (0.0-8.0); MONOCYTE # 0.7 TH/MM3 (0-0.9); NEUT % 68.6 % (16.0-70.0); PLATELET COUNT 169 TH/MM3 (150-450); RED BLOOD COUNT 3.21 MIL/MM3 (4.00-5.30); RED CELL DISTRIBUTION WIDTH 14.3 % (11.6-17.2); WHITE BLOOD COUNT 7.4 TH/MM3 (4.0-11.0)
[2018-01-15 07:43] LABS: ALBUMIN 2.5 GM/DL (3.4-5.0); ALT (GPT) 23 U/L (10-53); AST (GOT) 21 U/L (15-37); BICARBONATE 28.1 MEQ/L (21.0-32.0); BLOOD UREA NITROGEN 27 MG/DL (7-18); CALCIUM 9.1 MG/DL (8.5-10.1); CHLORIDE 105 MEQ/L (98-107); CREATININE 0.46 MG/DL (0.50-1.00); GLOMERULAR FILTRATION RATE 146 ML/MIN (>89); GLUCOSE,RANDOM 100 MG/DL (74-106); SODIUM (NA) 142 MEQ/L (136-145)
[2018-01-15 07:45] LABS: ALKALINE PHOSPHATASE 110 U/L (45-117); TOTAL BILIRUBIN ADULT 0.3 MG/DL (0.2-1.0); TOTAL PROTEIN 6.7 GM/DL (6.4-8.2)
[2018-01-15] MEDS: RESP: BUDESONIDE 0.5 MG/2 ML NEB NEB SCH ×2 (08:08→19:58)
[2018-01-15] MEDS: FAMOTIDINE 20 MG TAB PO SCH ×2 (08:59→22:25)
[2018-01-15] MEDS: VORICONAZOLE 200 MG TAB PO SCH ×2 (08:59→22:25)
[2018-01-15] MEDS: ASPIRIN 81 MG CHEW TAB CHEW SCH (08:59)
[2018-01-15] MEDS: ARTIFICIAL TEARS OPTH OINT 3.5 APPLIC/3.5 GM TUBO EACH EYE SCH ×2 (09:00→21:00)
[2018-01-15] MEDS: fentaNYL 100 MCG/HR PATCH T-DERMAL SCH (09:00)
[2018-01-15] MEDS: SODIUM CHLORIDE 0.9% FLUSH 10 ML FLUSH IV FLUSH SCH ×3 (09:00→22:28)
[2018-01-15] MEDS: REMOVE OLD DURAGESIC (FENTANYL) PATCH T-DERMAL SCH (09:00)
[2018-01-15] MEDS: MUPIROCIN 2% OINT 1 APPLIC/GM SYR EACH NARE SCH ×2 (09:00→22:28)
[2018-01-15] MEDS: FUROSEMIDE 20 MG/2 ML VIAL IV PUSH SCH (09:00)
[2018-01-15] MEDS: INSULIN DETEMIR 100 UNITS/ML VIAL SQ SCH ×2 (09:01→22:27)
[2018-01-15] MEDS: CHLORHEXIDINE 0.12% (ORAL KIT) 15 ML CUP MT SCH ×2 (09:01→20:00)
--- NOTE | 2018-01-15 10:06 | HHI.IDPN ---
Subjective Subjective Remarks Patient is a 47-year-old female, who initially presented to [facility] ED complaining of 4 day history of chest pain and shortness of breath. In have any other history. She was apparently coughing and was bringing up some brownish phlegm. There was no mention of any fever or chills. No nausea or vomiting. No urinary complaints. Chest x-ray showed bilateral patchy basilar infiltrates. CTA did not show any pulmonary embolism, showed bilateral infiltrates with some cavitary lesions noted. She was transferred to the main hospital, and she apparently had some blood in the sputum. She ended up getting intubated. [facility] did bronchoscopy on her. Patient currently sedated postintubation. Her blood pressure is okay and she is not hypotensive. She is tachycardic. Infectious disease consultation has been requested to evaluate the patient with pneumonia Notes reviewed Doing well on Tpiece S/P trach and PEG. Temps ok BP ok WBC down to normal CXR stable CT chest - much improved as far as consolidation Tolerating TF Antibiotics Vanco IV Voriconazole Current Medications Medications (Trade) Dose Ordered Sig/Marily Route Start Time Stop Time Status Last Admin (NS Flush) 2 ml UNSCH PRN IV FLUSH 12/15/17 22:30 (NS Flush) 2 ml BID IV FLUSH 12/16/17 09:00 01/15/18 09:01 (Robitussin Dm 200-20 Mg/10 ml Liq) 10 ml Q4H PRN PO 12/15/17 22:30 Future Hold (Heparin Inj) 5,000 units Q8H SQ 12/16/17 12:00 Future hold 01/15/18 03:06 (Morphine Inj) 1 mg Q4H PRN IM 12/16/17 09:15 Future Hold 12/16/17 10:11 (Mucinex Er) 600 mg BID PO 12/16/17 09:15 Future Hold 12/16/17 10:51 Miscellaneous Information 1 Q361D XX 12/16/17 16:45 (Chlorhexidine 2% Cloth) Taper DAILY@04 TOP 12/17/17 04:00 12/13/18 03:59 01/13/18 04:00 (Chlorhexidine 2% Cloth) 3 pack UNSCH PRN TOP 12/16/17 16:45 (Milk Of Magnesia Liq) 30 ml Q12H PRN PO 12/16/17 16:45 (Senokot) 17.2 mg Q12H PRN PO 12/16/17 16:45 12/28/17 08:39 (Dulcolax Supp) 10 mg DAILY PRN RECTAL 12/16/17 16:45 (Lactulose Liq) 30 ml DAILY PRN PO 12/16/17 16:45 (Peridex 0.12% Liq) 15 ml BID@08,20 MT 12/16/17 20:00 01/15/18 09:01 (Albuterol Neb) 2.5 mg Q2HR NEB PRN NEB 12/21/17 08:30 01/10/18 07:54 (Pulmicort Respule Neb) 0.5 mg Q12HR NEB NEB 12/21/17 20:00 01/15/18 08:08 (NS Flush) DAILY IV FLUSH 12/22/17 09:00 01/14/18 09:00 (NS Flush) UNSCH PRN IV FLUSH 12/21/17 09:15 12/28/17 21:22 (Bactroban Nasal 2% Oint) Taper BID EACH NARE 12/21/17 21:00 12/17/18 20:59 01/14/18 21:00 (Lacrilube Opht Oint) 1 applic Q12HR EACH EYE 12/21/17 10:00 01/14/18 21:00 (D50w (Vial) Inj) 50 ml UNSCH PRN IV PUSH 12/21/17 09:15 01/12/18 00:23 (Glucagon Inj) 1 mg UNSCH PRN OTHER 12/21/17 09:15 (NovoLIN R SUPPLEMENTAL SCALE) 1 Q6HR SQ 12/21/17 12:00 01/12/18 13:59 (Tylenol 650 Mg/ 20 ml Liq) 650 mg Q6H PRN NG 12/21/17 09:30 01/02/18 08:21 (Pill Splitter) 1 ea UNSCH PRN OTHER 12/21/17 21:00 (Aspirin Chew) 81 mg DAILY CHEW 12/22/17 09:00 01/15/18 08:59 (Cathflo Activase Inj) 2 mg Q2H PRN INTRACATH 12/22/17 14:15 12/22/17 14:37 (Synthroid) 25 mcg DAILY@0600 PO 12/23/17 06:00 01/15/18 05:26 (Reglan Inj) 5 mg Q8H PRN IV PUSH 12/24/17 17:45 12/27/17 01:50 Pharmacy Profile Note 0 ml @ 0 mls/hr UNSCH OTHER 12/26/17 14:15 (Brethine Inj) 1 mg UNSCH PRN SQ 12/27/17 08:15 (Reglan Inj) 5 mg Q8H IV PUSH 12/28/17 15:00 01/15/18 06:10 (Xanax) 0.5 mg Q8H PRN PO 12/30/17 11:00 01/14/18 22:10 (Pepcid) 20 mg BID PO 01/01/18 21:00 01/15/18 08:59 (Levemir Inj) 12 units Q12HR SQ 01/02/18 21:00 01/15/18 09:01 (Lasix Inj) 20 mg DAILY IV PUSH 01/08/18 09:00 01/15/18 09:00 (Vfend) 200 mg Q12HR PO 01/08/18 11:00 01/15/18 08:59 (Duragesic 100 Mcg Patch.72 Hr) 1 patch Q3D T-DERMAL 01/09/18 09:00 01/15/18 09:00 Miscellaneous Information 1 Q3D T-DERMAL 01/09/18 09:00 01/15/18 09:00 Vancomycin HCl 1000 mg/Sodium Chloride 250 ml @ 250 mls/hr Q12H IV 01/09/18 11:00 01/14/18 22:12 (B & O Supp) 60 mg Q12H PRN RECTAL 01/10/18 00:45 01/12/18 10:12 (Catapres) 0.3 mg Q8HR PO 01/12/18 22:00 01/15/18 05:26 (Lopressor) 25 mg Q8H PRN PO 01/12/18 16:45 Miscellaneous Information SPECIFIC LAB TO BE DRAWN:VANCOMYCIN TROUGH DATE TO... ONCE ONCE .XX 01/15/18 10:45 01/15/18 10:46 Lines PIV Past Medical History Anxiety Past Surgical History Cholecystectomy Hysterectomy Allergies: Coded Allergies: No Known Allergies (Unverified , 12/15/17) Objective . Vital Signs Date Time Temp Pulse Resp B/P (MAP) Pulse Ox O2 Delivery O2 Flow Rate FiO2 01/15/18 08:10 99 T-piece 28 01/15/18 04:50 98.8 91 16 105/51 (69) 98 01/15/18 04:00 T-Piece 5.00 28 01/15/18 03:48 87 01/15/18 00:47 98.9 95 16 100/55 (70) 99 01/15/18 00:00 T-Piece 5.00 28 01/14/18 23:50 90 01/14/18 22:05 T-Piece 5.00 28 01/14/18 21:44 107 16 116/63 (80) 98 01/14/18 21:05 97 T-piece 6.00 28 01/14/18 20:10 92 01/14/18 16:59 99 T-Piece 28 01/14/18 16:28 110 01/14/18 16:00 98.9 97 18 101/58 (72) 98 01/14/18 13:22 99 T-Piece 28 01/14/18 12:00 98.8 96 18 107/47 (67) 99 01/14/18 10:32 90 01/14/18 10:32 99 T-Piece 28 . Laboratory Tests Test 01/14/18 06:40 01/15/18 06:40 White Blood Count 7.6 TH/MM3 7.4 TH/MM3 Red Blood Count 3.32 MIL/MM3 3.21 MIL/MM3 Hemoglobin 10.0 GM/DL 9.7 GM/DL Hematocrit 29.4 % 28.2 % Mean Corpuscular Volume 88.7 FL 87.9 FL Mean Corpuscular Hemoglobin 30.3 PG 30.3 PG Mean Corpuscular Hemoglobin Concent 34.1 % 34.4 % Red Cell Distribution Width 14.4 % 14.3 % Platelet Count 169 TH/MM3 169 TH/MM3 Mean Platelet Volume 8.3 FL 8.0 FL Neutrophils (%) (Auto) 70.7 % 68.6 % Lymphocytes (%) (Auto) 14.3 % 16.7 % Monocytes (%) (Auto) 9.1 % 9.1 % Eosinophils (%) (Auto) 5.2 % 5.0 % Basophils (%) (Auto) 0.7 % 0.6 % Neutrophils # (Auto) 5.4 TH/MM3 5.1 TH/MM3 Lymphocytes # (Auto) 1.1 TH/MM3 1.2 TH/MM3 Monocytes # (Auto) 0.7 TH/MM3 0.7 TH/MM3 Eosinophils # (Auto) 0.4 TH/MM3 0.4 TH/MM3 Basophils # (Auto) 0.1 TH/MM3 0.0 TH/MM3 CBC Comment DIFF FINAL DIFF FINAL Differential Comment Laboratory Tests Test 01/14/18 06:40 01/15/18 06:40 Blood Urea Nitrogen 28 MG/DL 27 MG/DL Creatinine 0.46 MG/DL 0.46 MG/DL Random Glucose 108 MG/DL 100 MG/DL Calcium Level 8.8 MG/DL 9.1 MG/DL Sodium Level 140 MEQ/L 142 MEQ/L Potassium Level 4.1 MEQ/L 4.2 MEQ/L Chloride Level 106 MEQ/L 105 MEQ/L Carbon Dioxide Level 26.7 MEQ/L 28.1 MEQ/L Anion Gap 7 MEQ/L 9 MEQ/L Estimat Glomerular Filtration Rate 146 ML/MIN 146 ML/MIN Total Protein 6.7 GM/DL Albumin 2.5 GM/DL Alkaline Phosphatase 110 U/L Aspartate Amino Transf (AST/SGOT) 21 U/L Alanine Aminotransferase (ALT/SGPT) 23 U/L Total Bilirubin 0.3 MG/DL Imaging Abdomen/Pelvis CT 01/04/18 0000 Signed Impressions: Service Date/Time: Friday, January 05, 2018 00:57 - CONCLUSION: Rectal tube in good position. Some asymmetry of the renal nephrograms the left one being slightly delayed of uncertain etiology. Conceivably pyelonephritis would be within the differential on the left based on the patient's symptoms of leukocytosis. Ravinder Krause MD Chest X-Ray 01/02/18 0600 Signed Impressions: Service Date/Time: Tuesday, January 02, 2018 03:45 - CONCLUSION: 1. Residual patchy densities right upper lobe and left lower lobe. Miguel Lynne MD CT Angiography 12/16/17 0000 Signed Impressions: Service Date/Time: Saturday, December 16, 2017 13:49 - CONCLUSION: 1. Negative for pulmonary emboli. 2. Dense consolidation in the lungs especially the lung bases with several cavitary lesions as above. Findings are most characteristic of pneumonia. Cannot exclude septic embolic disease. No significant effusion. Malachi Hardin MD Chest X-Ray 01/02/18599 Signed Impressions: Service Date/Time: Tuesday, January 02, 2018 03:45 - CONCLUSION: 1. Residual patchy densities right upper lobe and left lower lobe. Miguel Lynne MD Chest X-Ray 01/01/18599 Signed Impressions: Service Date/Time: Monday, January 01, 2018 02:48 - CONCLUSION: Improved aeration of the right lung with minimal bibasilar densities. Miguel Lynne MD Physical Exam GENERAL: Awake and following commands, NAD. SKIN: Warm and dry. No rash EYES: non icteric ENT: moist mucosae, no thrush NECK: Tracheostomy site ok CARDIOVASCULAR: HS audible. RESPIRATORY: Coarse BS dominga. Decreased at bases. ABDOMEN: soft , not tender, not distended BS+. PEG tube site ok. EXTREMITIES: Improving edema : clear yellow urine NEUROLOGICAL: Awake, responding. All extremities very weak PSYCHIATRIC: Awake, and cooperative LINE: No evidence of infection Assessment & Plan Remarks IMPRESSION Sepsis present, high grade, on admission, has MRSA on blood cultures - S/P arrest - last (+) BC 12/18 Bilateral pneumonia, some with cavitation, last CT did not show any cavitation - C/S with MRSA - CXR improving; CT improving Very worrisome for endocarditis - clinically , but JEANINE negative Respiratory failure. - S/P trach - CXR improving Leukocytosis, reolved Diarrhea, C diff negative x 2 RECOMMENDATION Continue IV Vanco - anticipate 6 weeks from last (+) BC - anticipated end date 01/28 Continue Voriconazole for now - likely contaminant - await serum galactomannan Monitor progress D/W Liliam Ritchie MD Jan 15, 2018 10:06
[2018-01-15] MEDS ORDERED: PHARMACY ORDERED LAB ONE (10:45)
[2018-01-15] MEDS: VANCOMYCIN 1,000 MG/NS 250 ML IV SCH ×4 (12:02→22:27)
--- NOTE | 2018-01-15 12:13 | HHI.PR ---
Subjective Remarks Improved upper extremity strength today. No complaints of pain. No respiratory distress. Objective Vital Signs Date Time Temp Pulse Resp B/P (MAP) Pulse Ox O2 Delivery O2 Flow Rate FiO2 01/15/18 09:00 T-Piece 4.00 28 01/15/18 08:10 99 T-piece 28 01/15/18 08:00 98.5 101 20 101/50 (67) 98 01/15/18 08:00 77 01/15/18 04:50 98.8 91 16 105/51 (69) 98 01/15/18 04:00 T-Piece 5.00 28 01/15/18 03:48 87 01/15/18 00:47 98.9 95 16 100/55 (70) 99 01/15/18 00:00 T-Piece 5.00 28 01/14/18 23:50 90 01/14/18 22:05 T-Piece 5.00 28 01/14/18 21:44 107 16 116/63 (80) 98 01/14/18 21:05 97 T-piece 6.00 28 01/14/18 20:10 92 01/14/18 16:59 99 T-Piece 28 01/14/18 16:28 110 01/14/18 16:00 98.9 97 18 101/58 (72) 98 01/14/18 13:22 99 T-Piece 28 I/O 01/14/18 01/14/18 01/14/18 01/15/18 01/15/18 01/15/18 07:00 15:00 23:00 07:00 15:00 23:00 Intake Total 714 ml 250 ml Output Total 300 ml Balance 414 ml 250 ml Intake Oral 0 ml IV Total 250 ml 250 ml Tube Feeding 404 ml Tube Irrigant 60 ml Output Urine Total 300 ml # Bowel Movements 0 Result Diagram: 01/15/18 0640 01/15/18 0640 Procedures BiPAP Objective Remarks GENERAL: NAD, A&Ox3 HEAD: Normocephalic. NECK: Supple, trachea midline. No lymphadenopathy. Tracheostomy midline. EYES: No scleral icterus. No injection or drainage. CARDIOVASCULAR: Regular rate and rhythm without murmurs, gallops, or rubs. RESPIRATORY: Breath sounds equal bilaterally. No accessory muscle use. GASTROINTESTINAL: Abdomen soft, non-tender, nondistended. MUSCULOSKELETAL: No cyanosis, or edema. SKIN: Warm and dry. NEURO: No focal neurological deficitis. Diffuse weakness. Unable to move limbs against gravity. A/P Problem List: (1) Pneumonia ICD Code: J18.9 - Pneumonia, unspecified organism Status: Acute (2) Septic shock due to methicillin resistant Staphylococcus aureus ICD Code: A41.02 - Sepsis due to Methicillin resistant Staphylococcus aureus; R65.21 - Severe sepsis with septic shock (3) ARDS (adult respiratory distress syndrome) ICD Code: J80 - Acute respiratory distress syndrome (4) Bilateral pneumonia ICD Code: J18.9 - Pneumonia, unspecified organism Status: Acute (5) Sepsis ICD Code: A41.9 - Sepsis, unspecified organism Status: Acute (6) Cavitating pneumonia Assessment and Plan 47-year-old female admitted secondary to sepsis with pneumonia which converted into ARDS. Slow improvements. Patient's upper body has shown strength improvement in last 24 hours. She can now lift both arms against gravity. 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
--- NOTE | 2018-01-15 18:22 | HHI.PR ---
Subjective Remarks alert no distress on tbar Objective Vital Signs Date Time Temp Pulse Resp B/P (MAP) Pulse Ox O2 Delivery O2 Flow Rate FiO2 01/15/18 16:00 98 01/15/18 12:00 85 01/15/18 09:00 T-Piece 4.00 28 01/15/18 08:10 99 T-piece 28 01/15/18 08:00 98.5 101 20 101/50 (67) 98 01/15/18 08:00 77 01/15/18 04:50 98.8 91 16 105/51 (69) 98 01/15/18 04:00 T-Piece 5.00 28 01/15/18 03:48 87 01/15/18 00:47 98.9 95 16 100/55 (70) 99 01/15/18 00:00 T-Piece 5.00 28 01/14/18 23:50 90 01/14/18 22:05 T-Piece 5.00 28 01/14/18 21:44 107 16 116/63 (80) 98 01/14/18 21:05 97 T-piece 6.00 28 01/14/18 20:10 92 I/O 01/14/18 01/14/18 01/14/18 01/15/18 01/15/18 01/15/18 07:00 15:00 23:00 07:00 15:00 23:00 Intake Total 714 ml 250 ml Output Total 300 ml Balance 414 ml 250 ml Intake Oral 0 ml IV Total 250 ml 250 ml Tube Feeding 404 ml Tube Irrigant 60 ml Output Urine Total 300 ml # Bowel Movements 0 Result Diagram: 01/15/18 0640 01/15/18 0640 Procedures BiPAP Objective Remarks GENERAL: sedated on vent support SKIN: Warm and dry. HEAD: Atraumatic. Normocephalic. EYES: Pupils equal and round. No scleral icterus. No injection or drainage. ENT: No nasal bleeding or discharge. Mucous membranes pink and moist. NECK: Trachea midline. No JVD. CARDIOVASCULAR: Regular rate and rhythm. RESPIRATORY: No accessory muscle use. Clear to auscultation. Breath sounds equal bilaterally. GASTROINTESTINAL: Abdomen soft, non-tender, nondistended. Hepatic and splenic margins not palpable. MUSCULOSKELETAL: Extremities without clubbing, cyanosis, or edema. No obvious deformities. NEUROLOGICAL: Awake and alert. No obvious cranial nerve deficits. Motor grossly within normal limits. Five out of 5 muscle strength in the arms and legs. Normal speech. PSYCHIATRIC: Appropriate mood and affect; insight and judgment normal. Assessment and Plan Assessment and Plan imp: ALERT, TRACHEOSTOMY IN PLACE respiratory failure/ plan O2 as needed pulm toilet Increase activity Ileana Tejeda MD Jan 15, 2018 18:22
[2018-01-15] MEDS: ALPRAZolam 0.5 MG TAB PO PRN (22:25)
[2018-01-16] VITALS (12 sets, daily range): BP systolic 102–137; BP diastolic 55–63; PULSE 77–104; RESP 17–20; TEMP 97.9–98.7; O2SAT 95–98
[2018-01-16] MEDS: CHLORHEXIDINE GLUCONATE 2 % 1 PACK (2 CLOTHS) TOP SCH (03:30)
[2018-01-16] MEDS: HEPARIN SODIUM - SQ 10,000 UNITS/ML VIAL SQ SCH ×3 (03:30→22:23)
[2018-01-16] MEDS: INSULIN NovoLIN REGULAR SUPPLEMENTAL SCALE SQ SCH ×5 (06:00→23:58)
[2018-01-16] MEDS: LEVOTHYROXINE SODIUM 25 MCG TAB PO SCH (06:10)
[2018-01-16] MEDS: cloNIDine HCL 0.3 MG TAB PO SCH ×3 (06:10→22:22)
[2018-01-16] MEDS: METOCLOPRAMIDE HCL 10 MG/2 ML VIAL IV PUSH SCH ×3 (06:11→22:22)
[2018-01-16 07:43] LABS: CREATININE 0.54 MG/DL (0.50-1.00)
[2018-01-16] MEDS: SODIUM CHLORIDE 0.9% FLUSH 10 ML FLUSH IV FLUSH SCH ×3 (09:00→22:23)
[2018-01-16] MEDS: MUPIROCIN 2% OINT 1 APPLIC/GM SYR EACH NARE SCH ×2 (09:00→22:23)
[2018-01-16] MEDS: ARTIFICIAL TEARS OPTH OINT 3.5 APPLIC/3.5 GM TUBO EACH EYE SCH ×2 (09:00→21:00)
[2018-01-16] MEDS: CHLORHEXIDINE 0.12% (ORAL KIT) 15 ML CUP MT SCH ×2 (09:03→20:00)
[2018-01-16] MEDS: FUROSEMIDE 20 MG/2 ML VIAL IV PUSH SCH (09:03)
[2018-01-16] MEDS: ASPIRIN 81 MG CHEW TAB CHEW SCH (09:03)
[2018-01-16] MEDS: VORICONAZOLE 200 MG TAB PO SCH (09:04)
[2018-01-16] MEDS: INSULIN DETEMIR 100 UNITS/ML VIAL SQ SCH ×2 (09:04→22:23)
[2018-01-16] MEDS: FAMOTIDINE 20 MG TAB PO SCH ×2 (09:04→22:22)
[2018-01-16] MEDS: RESP: BUDESONIDE 0.5 MG/2 ML NEB NEB SCH ×2 (09:53→21:21)
--- NOTE | 2018-01-16 11:00 | HHI.IDPN ---
Subjective Subjective Remarks Patient is a 47-year-old female, who initially presented to [facility] ED complaining of 4 day history of chest pain and shortness of breath. In have any other history. She was apparently coughing and was bringing up some brownish phlegm. There was no mention of any fever or chills. No nausea or vomiting. No urinary complaints. Chest x-ray showed bilateral patchy basilar infiltrates. CTA did not show any pulmonary embolism, showed bilateral infiltrates with some cavitary lesions noted. She was transferred to the main hospital, and she apparently had some blood in the sputum. She ended up getting intubated. [facility] did bronchoscopy on her. Patient currently sedated postintubation. Her blood pressure is okay and she is not hypotensive. She is tachycardic. Infectious disease consultation has been requested to evaluate the patient with pneumonia Notes reviewed Doing well on Tpiece S/P trach and PEG. Temps ok BP ok WBC down to normal CXR stable CT chest - much improved as far as consolidation Tolerating TF Aspergillus test negative Antibiotics Vanco IV Voriconazole Current Medications Medications (Trade) Dose Ordered Sig/Marily Route Start Time Stop Time Status Last Admin (NS Flush) 2 ml UNSCH PRN IV FLUSH 12/15/17 22:30 (NS Flush) 2 ml BID IV FLUSH 12/16/17 09:00 01/16/18 09:03 (Robitussin Dm 200-20 Mg/10 ml Liq) 10 ml Q4H PRN PO 12/15/17 22:30 Future Hold (Heparin Inj) 5,000 units Q8H SQ 12/16/17 12:00 Future hold 01/16/18 03:30 (Morphine Inj) 1 mg Q4H PRN IM 12/16/17 09:15 Future Hold 12/16/17 10:11 (Mucinex Er) 600 mg BID PO 12/16/17 09:15 Future Hold 12/16/17 10:51 Miscellaneous Information 1 Q361D XX 12/16/17 16:45 (Chlorhexidine 2% Cloth) Taper DAILY@04 TOP 12/17/17 04:00 12/13/18 03:59 01/13/18 04:00 (Chlorhexidine 2% Cloth) 3 pack UNSCH PRN TOP 12/16/17 16:45 (Milk Of Magnesia Liq) 30 ml Q12H PRN PO 12/16/17 16:45 (Senokot) 17.2 mg Q12H PRN PO 12/16/17 16:45 12/28/17 08:39 (Dulcolax Supp) 10 mg DAILY PRN RECTAL 12/16/17 16:45 (Lactulose Liq) 30 ml DAILY PRN PO 12/16/17 16:45 (Peridex 0.12% Liq) 15 ml BID@08,20 MT 12/16/17 20:00 01/16/18 09:03 (Albuterol Neb) 2.5 mg Q2HR NEB PRN NEB 12/21/17 08:30 01/10/18 07:54 (Pulmicort Respule Neb) 0.5 mg Q12HR NEB NEB 12/21/17 20:00 01/16/18 09:53 (NS Flush) DAILY IV FLUSH 12/22/17 09:00 01/14/18 09:00 (NS Flush) UNSCH PRN IV FLUSH 12/21/17 09:15 12/28/17 21:22 (Bactroban Nasal 2% Oint) Taper BID EACH NARE 12/21/17 21:00 12/17/18 20:59 01/15/18 22:28 (Lacrilube Opht Oint) 1 applic Q12HR EACH EYE 12/21/17 10:00 01/14/18 21:00 (D50w (Vial) Inj) 50 ml UNSCH PRN IV PUSH 12/21/17 09:15 01/12/18 00:23 (Glucagon Inj) 1 mg UNSCH PRN OTHER 12/21/17 09:15 (NovoLIN R SUPPLEMENTAL SCALE) 1 Q6HR SQ 12/21/17 12:00 01/12/18 13:59 (Tylenol 650 Mg/ 20 ml Liq) 650 mg Q6H PRN NG 12/21/17 09:30 01/02/18 08:21 (Pill Splitter) 1 ea UNSCH PRN OTHER 12/21/17 21:00 (Aspirin Chew) 81 mg DAILY CHEW 12/22/17 09:00 01/16/18 09:03 (Cathflo Activase Inj) 2 mg Q2H PRN INTRACATH 12/22/17 14:15 12/22/17 14:37 (Synthroid) 25 mcg DAILY@0600 PO 12/23/17 06:00 01/16/18 06:10 (Reglan Inj) 5 mg Q8H PRN IV PUSH 12/24/17 17:45 12/27/17 01:50 Pharmacy Profile Note 0 ml @ 0 mls/hr UNSCH OTHER 12/26/17 14:15 (Brethine Inj) 1 mg UNSCH PRN SQ 12/27/17 08:15 (Reglan Inj) 5 mg Q8H IV PUSH 12/28/17 15:00 01/16/18 06:11 (Xanax) 0.5 mg Q8H PRN PO 12/30/17 11:00 01/15/18 22:25 (Pepcid) 20 mg BID PO 01/01/18 21:00 01/16/18 09:04 (Levemir Inj) 12 units Q12HR SQ 01/02/18 21:00 01/16/18 09:04 (Lasix Inj) 20 mg DAILY IV PUSH 01/08/18 09:00 01/16/18 09:03 (Duragesic 100 Mcg Patch.72 Hr) 1 patch Q3D T-DERMAL 01/09/18 09:00 01/15/18 09:00 Miscellaneous Information 1 Q3D T-DERMAL 01/09/18 09:00 01/15/18 09:00 Vancomycin HCl 1000 mg/Sodium Chloride 250 ml @ 250 mls/hr Q12H IV 01/09/18 11:00 01/15/18 22:27 (B & O Supp) 60 mg Q12H PRN RECTAL 01/10/18 00:45 01/12/18 10:12 (Catapres) 0.3 mg Q8HR PO 01/12/18 22:00 01/16/18 06:10 (Lopressor) 25 mg Q8H PRN PO 01/12/18 16:45 Lines PIV Past Medical History Anxiety Past Surgical History Cholecystectomy Hysterectomy Allergies: Coded Allergies: No Known Allergies (Unverified , 12/15/17) Objective . Vital Signs Date Time Temp Pulse Resp B/P (MAP) Pulse Ox O2 Delivery O2 Flow Rate FiO2 01/16/18 09:57 98 T-piece 5.00 28 01/16/18 08:00 T-Piece 4.00 28 01/16/18 04:22 83 01/16/18 04:00 98.3 99 19 125/55 (78) 97 01/16/18 00:02 81 01/16/18 00:00 98.3 87 18 111/56 (74) 98 01/15/18 22:30 T-Piece 4.00 28 01/15/18 20:03 99 T-piece 5.00 28 01/15/18 20:00 99.0 103 18 124/59 (80) 98 01/15/18 19:56 114 01/15/18 16:00 98.8 112 20 108/60 (76) 96 01/15/18 16:00 98 01/15/18 12:00 85 01/15/18 12:00 98.6 97 20 104/51 (68) 96 . Laboratory Tests Test 01/15/18 06:40 White Blood Count 7.4 TH/MM3 Red Blood Count 3.21 MIL/MM3 Hemoglobin 9.7 GM/DL Hematocrit 28.2 % Mean Corpuscular Volume 87.9 FL Mean Corpuscular Hemoglobin 30.3 PG Mean Corpuscular Hemoglobin Concent 34.4 % Red Cell Distribution Width 14.3 % Platelet Count 169 TH/MM3 Mean Platelet Volume 8.0 FL Neutrophils (%) (Auto) 68.6 % Lymphocytes (%) (Auto) 16.7 % Monocytes (%) (Auto) 9.1 % Eosinophils (%) (Auto) 5.0 % Basophils (%) (Auto) 0.6 % Neutrophils # (Auto) 5.1 TH/MM3 Lymphocytes # (Auto) 1.2 TH/MM3 Monocytes # (Auto) 0.7 TH/MM3 Eosinophils # (Auto) 0.4 TH/MM3 Basophils # (Auto) 0.0 TH/MM3 CBC Comment DIFF FINAL Differential Comment Laboratory Tests Test 01/15/18 06:40 01/16/18 06:30 Blood Urea Nitrogen 27 MG/DL Creatinine 0.46 MG/DL 0.54 MG/DL Random Glucose 100 MG/DL Total Protein 6.7 GM/DL Albumin 2.5 GM/DL Calcium Level 9.1 MG/DL Alkaline Phosphatase 110 U/L Aspartate Amino Transf (AST/SGOT) 21 U/L Alanine Aminotransferase (ALT/SGPT) 23 U/L Total Bilirubin 0.3 MG/DL Sodium Level 142 MEQ/L Potassium Level 4.2 MEQ/L Chloride Level 105 MEQ/L Carbon Dioxide Level 28.1 MEQ/L Anion Gap 9 MEQ/L Estimat Glomerular Filtration Rate 146 ML/MIN 122 ML/MIN Imaging Abdomen/Pelvis CT 01/04/18 0000 Signed Impressions: Service Date/Time: Friday, January 05, 2018 00:57 - CONCLUSION: Rectal tube in good position. Some asymmetry of the renal nephrograms the left one being slightly delayed of uncertain etiology. Conceivably pyelonephritis would be within the differential on the left based on the patient's symptoms of leukocytosis. Ravinder Krause MD Chest X-Ray 01/02/18599 Signed Impressions: Service Date/Time: Tuesday, January 02, 2018 03:45 - CONCLUSION: 1. Residual patchy densities right upper lobe and left lower lobe. Miguel Lynne MD CT Angiography 12/16/17 0000 Signed Impressions: Service Date/Time: Saturday, December 16, 2017 13:49 - CONCLUSION: 1. Negative for pulmonary emboli. 2. Dense consolidation in the lungs especially the lung bases with several cavitary lesions as above. Findings are most characteristic of pneumonia. Cannot exclude septic embolic disease. No significant effusion. Malachi Hardin MD Chest X-Ray 01/02/18599 Signed Impressions: Service Date/Time: Tuesday, January 02, 2018 03:45 - CONCLUSION: 1. Residual patchy densities right upper lobe and left lower lobe. Miguel Lynne MD Chest X-Ray 01/01/18599 Signed Impressions: Service Date/Time: Monday, January 01, 2018 02:48 - CONCLUSION: Improved aeration of the right lung with minimal bibasilar densities. Miguel Lynne MD Physical Exam GENERAL: Awake and following commands, NAD. SKIN: Warm and dry. No rash EYES: non icteric ENT: moist mucosae, no thrush NECK: Tracheostomy site ok CARDIOVASCULAR: HS audible. RESPIRATORY: Coarse BS dominga. Decreased at bases. ABDOMEN: soft , not tender, not distended BS+. PEG tube site ok. EXTREMITIES: Improving edema : clear yellow urine NEUROLOGICAL: Awake, responding. All extremities very weak PSYCHIATRIC: Awake, and cooperative LINE: No evidence of infection Assessment & Plan Remarks IMPRESSION Sepsis present, high grade, on admission, has MRSA on blood cultures - S/P arrest - last (+) BC 12/18 Bilateral pneumonia, some with cavitation, last CT did not show any cavitation - C/S with MRSA - CXR improving; CT improving Very worrisome for endocarditis - clinically , but JEANINE negative Respiratory failure. - S/P trach - CXR improving Leukocytosis, reolved Diarrhea, C diff negative x 2 RECOMMENDATION Continue IV Vanco - anticipate 6 weeks from last (+) BC - anticipated end date 01/28 Stop Voriconazole - likely contaminant Monitor progress Clinically stable from ID standpoint Liliam Su MD Jan 16, 2018 11:00
--- NOTE | 2018-01-16 12:01 | HHI.PR ---
Subjective Remarks Swallow study passed today with honey thick liquids and puree. No new complaints. No respiratory distress. Objective Vital Signs Date Time Temp Pulse Resp B/P (MAP) Pulse Ox O2 Delivery O2 Flow Rate FiO2 01/16/18 09:57 98 T-piece 5.00 28 01/16/18 08:00 T-Piece 4.00 28 01/16/18 04:22 83 01/16/18 04:00 98.3 99 19 125/55 (78) 97 01/16/18 00:02 81 01/16/18 00:00 98.3 87 18 111/56 (74) 98 01/15/18 22:30 T-Piece 4.00 28 01/15/18 20:03 99 T-piece 5.00 28 01/15/18 20:00 99.0 103 18 124/59 (80) 98 01/15/18 19:56 114 01/15/18 16:00 98.8 112 20 108/60 (76) 96 01/15/18 16:00 98 I/O 01/15/18 01/15/18 01/15/18 01/16/18 01/16/18 01/16/18 07:00 15:00 23:00 07:00 15:00 23:00 Intake Total 250 ml 0 ml 541 ml Output Total 300 ml 150 ml Balance 250 ml -300 ml 391 ml Intake Oral 0 ml 0 ml IV Total 250 ml Tube Feeding 511 ml Other 30 ml Stool Total 300 ml 150 ml # Voids 3 3 Result Diagram: 01/15/18 0640 01/16/18 0630 Procedures BiPAP Objective Remarks GENERAL: NAD, A&Ox3 HEAD: Normocephalic. NECK: Supple, trachea midline. No lymphadenopathy. Tracheostomy midline. EYES: No scleral icterus. No injection or drainage. CARDIOVASCULAR: Regular rate and rhythm without murmurs, gallops, or rubs. RESPIRATORY: Breath sounds equal bilaterally. No accessory muscle use. GASTROINTESTINAL: Abdomen soft, non-tender, nondistended. MUSCULOSKELETAL: No cyanosis, or edema. SKIN: Warm and dry. NEURO: No focal neurological deficitis. Diffuse weakness. Unable to move limbs against gravity. A/P Problem List: (1) Pneumonia ICD Code: J18.9 - Pneumonia, unspecified organism Status: Acute (2) Septic shock due to methicillin resistant Staphylococcus aureus ICD Code: A41.02 - Sepsis due to Methicillin resistant Staphylococcus aureus; R65.21 - Severe sepsis with septic shock (3) ARDS (adult respiratory distress syndrome) ICD Code: J80 - Acute respiratory distress syndrome (4) Bilateral pneumonia ICD Code: J18.9 - Pneumonia, unspecified organism Status: Acute (5) Sepsis ICD Code: A41.9 - Sepsis, unspecified organism Status: Acute (6) Cavitating pneumonia Assessment and Plan 47-year-old female admitted secondary to sepsis with pneumonia which converted into ARDS. Slow improvements. Advance diet. Right wrist orthesis. Sepsis Pneumonia Pulmonary cavitary lesions from MRSA pneumonia ARDS Acute phase is resolved Healing phase and process Chronic respiratory failure s/p Tracheostomy There is potential is can improve Continue tracheostomy Speech therapy Continue respiratory care Continue tracheostomy care Pulmonology following Generalized weakness Physical debility Critical Illness Polyneuropathy/critical illness myopathy Functional quadriparesis secondary to above Secondary to prolonged bed rest with prolonged intubation Continue physical therapy Continue occupational therapy Tachycardia Recent Bradycardic Arrest No recurrence Sotalol Cardiology following Aspirin Dysphagia Tube feeds continued Speech Therapy Hyperglycemia Follow blood sugars Hypothyroidism Likely related to metabolic changes of illness Further work up after patient's physiology normalizes Levothyroxine DVT Prophylaxis SCDs Heparin Problem Qualifiers (1) Sepsis: Qualified Codes: A41.9 - Sepsis, unspecified organism Adam Espinoza MD Jan 16, 2018 12:01
[2018-01-16] MEDS: VANCOMYCIN 1,000 MG/NS 250 ML IV SCH ×4 (12:27→22:22)
--- NOTE | 2018-01-16 18:16 | HHI.PR ---
Subjective Remarks alert no distress on tbar Objective Vital Signs Date Time Temp Pulse Resp B/P (MAP) Pulse Ox O2 Delivery O2 Flow Rate FiO2 01/16/18 12:00 79 01/16/18 09:57 98 T-piece 5.00 28 01/16/18 08:00 T-Piece 4.00 28 01/16/18 08:00 77 01/16/18 04:22 83 01/16/18 04:00 98.3 99 19 125/55 (78) 97 01/16/18 00:02 81 01/16/18 00:00 98.3 87 18 111/56 (74) 98 01/15/18 22:30 T-Piece 4.00 28 01/15/18 20:03 99 T-piece 5.00 28 01/15/18 20:00 99.0 103 18 124/59 (80) 98 01/15/18 19:56 114 I/O 01/15/18 01/15/18 01/15/18 01/16/18 01/16/18 01/16/18 07:00 15:00 23:00 07:00 15:00 23:00 Intake Total 250 ml 0 ml 541 ml Output Total 300 ml 150 ml Balance 250 ml -300 ml 391 ml Intake Oral 0 ml 0 ml IV Total 250 ml Tube Feeding 511 ml Other 30 ml Stool Total 300 ml 150 ml # Voids 3 3 Result Diagram: 01/15/18 0640 01/16/18 0630 Procedures BiPAP Objective Remarks GENERAL: sedated on vent support SKIN: Warm and dry. HEAD: Atraumatic. Normocephalic. EYES: Pupils equal and round. No scleral icterus. No injection or drainage. ENT: No nasal bleeding or discharge. Mucous membranes pink and moist. NECK: Trachea midline. No JVD. CARDIOVASCULAR: Regular rate and rhythm. RESPIRATORY: No accessory muscle use. Clear to auscultation. Breath sounds equal bilaterally. GASTROINTESTINAL: Abdomen soft, non-tender, nondistended. Hepatic and splenic margins not palpable. MUSCULOSKELETAL: Extremities without clubbing, cyanosis, or edema. No obvious deformities. NEUROLOGICAL: Awake and alert. No obvious cranial nerve deficits. Motor grossly within normal limits. Five out of 5 muscle strength in the arms and legs. Normal speech. PSYCHIATRIC: Appropriate mood and affect; insight and judgment normal. Assessment and Plan Assessment and Plan imp: ALERT, TRACHEOSTOMY IN PLACE respiratory failure/ plan O2 as needed pulm toilet PT Ileana Tejeda MD Jan 16, 2018 18:16
[2018-01-16] MEDS: RESP: ALBUTEROL 2.5 MG/3 ML NEB (PRN) NEB (21:22)
[2018-01-16] MEDS: ALPRAZolam 0.5 MG TAB PO PRN (22:22)
[2018-01-17] VITALS (13 sets, daily range): BP systolic 97–121; BP diastolic 44–68; PULSE 72–101; RESP 16–20; TEMP 98.1–99.4; O2SAT 93–100
[2018-01-17] MEDS: CHLORHEXIDINE GLUCONATE 2 % 1 PACK (2 CLOTHS) TOP SCH (04:00)
[2018-01-17] MEDS: METOCLOPRAMIDE HCL 10 MG/2 ML VIAL IV PUSH SCH ×2 (05:32→15:00)
[2018-01-17] MEDS: LEVOTHYROXINE SODIUM 25 MCG TAB PO SCH (05:32)
[2018-01-17] MEDS: HEPARIN SODIUM - SQ 10,000 UNITS/ML VIAL SQ SCH ×3 (05:32→20:00)
[2018-01-17] MEDS: cloNIDine HCL 0.3 MG TAB PO SCH ×2 (05:32→13:04)
[2018-01-17] MEDS: INSULIN NovoLIN REGULAR SUPPLEMENTAL SCALE SQ SCH ×3 (05:39→17:44)
[2018-01-17] MEDS: CHLORHEXIDINE 0.12% (ORAL KIT) 15 ML CUP MT SCH ×2 (08:00→19:45)
[2018-01-17] MEDS: RESP: BUDESONIDE 0.5 MG/2 ML NEB NEB SCH ×2 (08:18→20:41)
[2018-01-17] MEDS: ARTIFICIAL TEARS OPTH OINT 3.5 APPLIC/3.5 GM TUBO EACH EYE SCH ×2 (09:00→21:00)
[2018-01-17] MEDS: SODIUM CHLORIDE 0.9% FLUSH 10 ML FLUSH IV FLUSH SCH ×2 (09:00→09:51)
[2018-01-17] MEDS: MUPIROCIN 2% OINT 1 APPLIC/GM SYR EACH NARE SCH (09:48)
[2018-01-17] MEDS: INSULIN DETEMIR 100 UNITS/ML VIAL SQ SCH (09:48)
[2018-01-17] MEDS: FAMOTIDINE 20 MG TAB PO SCH (09:48)
[2018-01-17] MEDS: ASPIRIN 81 MG CHEW TAB CHEW SCH (09:48)
[2018-01-17] MEDS: FUROSEMIDE 20 MG/2 ML VIAL IV PUSH SCH (09:50)
[2018-01-17] MEDS: VANCOMYCIN 1,000 MG/NS 250 ML IV SCH ×2 (12:20)
[2018-01-17 14:26] LABS: AUTOMATED NEUTROPHIL # 6.6 TH/MM3 (1.8-7.7); BASOPHIL # 0.1 TH/MM3 (0-0.2); BASOPHIL % 0.8 % (0.0-2.0); EOSINOPHIL # 0.4 TH/MM3 (0-0.4); HEMATOCRIT 33.7 % (35.0-46.0); HEMOGLOBIN 11.6 GM/DL (11.6-15.3); LYMPH % 15.4 % (9.0-44.0); LYMPHOCYTE # 1.4 TH/MM3 (1.0-4.8); MEAN CELL VOLUME 86.4 FL (80.0-100.0); MEAN CORPUSCULAR HEMOGLOBIN 29.9 PG (27.0-34.0); MEAN CORPUSCULAR HGB CONC 34.6 % (32.0-36.0); MEAN PLATELET VOLUME 8.1 FL (7.0-11.0); MONOCYTE # 0.5 TH/MM3 (0-0.9); NEUT % 73.8 % (16.0-70.0); PLATELET COUNT 227 TH/MM3 (150-450); RED CELL DISTRIBUTION WIDTH 14.2 % (11.6-17.2); WHITE BLOOD COUNT 8.9 TH/MM3 (4.0-11.0)
[2018-01-17 14:53] LABS: ALKALINE PHOSPHATASE 169 U/L (45-117); ALT (GPT) 50 U/L (10-53); AST (GOT) 56 U/L (15-37); BICARBONATE 28.5 MEQ/L (21.0-32.0); BLOOD UREA NITROGEN 30 MG/DL (7-18); CALCIUM 9.7 MG/DL (8.5-10.1); CHLORIDE 102 MEQ/L (98-107); CREATININE 0.64 MG/DL (0.50-1.00); GLOMERULAR FILTRATION RATE 100 ML/MIN (>89); GLUCOSE,RANDOM 114 MG/DL (74-106); SODIUM (NA) 139 MEQ/L (136-145); TOTAL BILIRUBIN ADULT 0.4 MG/DL (0.2-1.0); TOTAL PROTEIN 7.7 GM/DL (6.4-8.2)
--- NOTE | 2018-01-17 14:54 | HHI.PR ---
Subjective Remarks alert no distress on tbar Objective Vital Signs Date Time Temp Pulse Resp B/P (MAP) Pulse Ox O2 Delivery O2 Flow Rate FiO2 01/17/18 12:00 98.7 86 16 101/49 (66) 93 01/17/18 08:24 96 T-piece 28 01/17/18 08:04 72 01/17/18 08:00 98.1 75 17 97/44 (61) 100 01/17/18 08:00 T-Piece 28 01/17/18 04:42 79 01/17/18 04:00 T-Piece 28 01/17/18 04:00 98.3 99 18 112/68 (83) 97 01/17/18 00:03 T-Piece 28 01/17/18 00:03 98.2 91 20 102/64 (77) 96 01/16/18 23:49 104 01/16/18 21:22 98 T-piece 6.00 28 01/16/18 20:15 88 01/16/18 20:00 T-Piece 28 01/16/18 20:00 97.9 101 17 125/60 (81) 95 01/16/18 16:00 99 01/16/18 16:00 98.7 104 20 137/63 (87) 98 I/O 01/16/18 01/16/18 01/16/18 01/17/18 01/17/18 01/17/18 07:00 15:00 23:00 07:00 15:00 23:00 Intake Total 541 ml 0 ml 1463 ml Output Total 150 ml Balance 391 ml 0 ml 1463 ml Intake Oral 0 ml 0 ml 480 ml IV Total 250 ml Tube Feeding 511 ml 683 ml Other 30 ml 50 ml Stool Total 150 ml # Voids 3 1 5 # Bowel Movements 1 1 Result Diagram: 01/17/18 1411 01/17/18 1411 Procedures BiPAP Objective Remarks GENERAL: sedated on vent support SKIN: Warm and dry. HEAD: Atraumatic. Normocephalic. EYES: Pupils equal and round. No scleral icterus. No injection or drainage. ENT: No nasal bleeding or discharge. Mucous membranes pink and moist. NECK: Trachea midline. No JVD. CARDIOVASCULAR: Regular rate and rhythm. RESPIRATORY: No accessory muscle use. Clear to auscultation. Breath sounds equal bilaterally. GASTROINTESTINAL: Abdomen soft, non-tender, nondistended. Hepatic and splenic margins not palpable. MUSCULOSKELETAL: Extremities without clubbing, cyanosis, or edema. No obvious deformities. NEUROLOGICAL: Awake and alert. No obvious cranial nerve deficits. Motor grossly within normal limits. Five out of 5 muscle strength in the arms and legs. Normal speech. PSYCHIATRIC: Appropriate mood and affect; insight and judgment normal. Assessment and Plan Assessment and Plan imp: ALERT, TRACHEOSTOMY IN PLACE respiratory failure/ MANY VISITORS TODAY plan O2 as needed pulm toilet PT Ileana Tejeda MD Jan 17, 2018 14:54
--- NOTE | 2018-01-17 15:28 | HHI.PR ---
Subjective Remarks The patient is in bed she appears in not acute distress at this time. Trach on. Patient says she has less secretions. Some shortness of breath. Some nonproductive cough. But denies any fever or chills. No nausea vomiting no diarrhea or constipation Objective Vitals Vital Signs Date Time Temp Pulse Resp B/P (MAP) Pulse Ox O2 Delivery O2 Flow Rate FiO2 01/17/18 12:00 98.7 86 16 101/49 (66) 93 01/17/18 08:24 96 T-piece 28 01/17/18 08:04 72 01/17/18 08:00 98.1 75 17 97/44 (61) 100 01/17/18 08:00 T-Piece 28 01/17/18 04:42 79 01/17/18 04:00 T-Piece 28 01/17/18 04:00 98.3 99 18 112/68 (83) 97 01/17/18 00:03 T-Piece 28 01/17/18 00:03 98.2 91 20 102/64 (77) 96 01/16/18 23:49 104 01/16/18 21:22 98 T-piece 6.00 28 01/16/18 20:15 88 01/16/18 20:00 T-Piece 28 01/16/18 20:00 97.9 101 17 125/60 (81) 95 01/16/18 16:00 99 01/16/18 16:00 98.7 104 20 137/63 (87) 98 I/O 01/16/18 01/16/18 01/16/18 01/17/18 01/17/18 01/17/18 07:00 15:00 23:00 07:00 15:00 23:00 Intake Total 541 ml 0 ml 1463 ml Output Total 150 ml Balance 391 ml 0 ml 1463 ml Intake Oral 0 ml 0 ml 480 ml IV Total 250 ml Tube Feeding 511 ml 683 ml Other 30 ml 50 ml Stool Total 150 ml # Voids 3 1 5 # Bowel Movements 1 1 Result Diagram: 01/17/18 1411 01/17/18 1411 Imaging Last Impressions Chest X-Ray 01/10/18 0600 Signed Impressions: Service Date/Time: January 03:55 - CONCLUSION: No significant change in aeration Demarco Gupta MD Chest CT 01/10/18 0000 Signed Impressions: Service Date/Time: January 17:23 - CONCLUSION: 1. There are areas of dense consolidation in the lung bases. These have significantly improved when compared to the prior exam. 2. Scattered emphysematous blebs within the pulmonary parenchyma. 3. Small area consolidation in the right middle lobe. 4. The emphysematous blebs in the right middle lobe and left lower lobe are new. The overall appearance of the chest is improved when compared to the previous study of 12/16/17. Adam Latif MD Abdomen X-Ray 01/09/18 0000 Signed Impressions: Service Date/Time: Tuesday, January 09, 2018 17:16 - CONCLUSION: No dilated loops of small bowel. Gastrostomy in place. Yomi Lopez MD Abdomen/Pelvis CT 01/04/18 0000 Signed Impressions: Service Date/Time: Friday, January 05, 2018 00:57 - CONCLUSION: Rectal tube in good position. Some asymmetry of the renal nephrograms the left one being slightly delayed of uncertain etiology. Conceivably pyelonephritis would be within the differential on the left based on the patient's symptoms of leukocytosis. Ravinder Krause MD CT Angiography 12/16/17 0000 Signed Impressions: Service Date/Time: Saturday, December 16, 2017 13:49 - CONCLUSION: 1. Negative for pulmonary emboli. 2. Dense consolidation in the lungs especially the lung bases with several cavitary lesions as above. Findings are most characteristic of pneumonia. Cannot exclude septic embolic disease. No significant effusion. Malachi Hardin MD Objective Remarks GENERAL: Patient is in bed with trach she appears to not acute distress at this time. HEAD: Normocephalic. NECK: Supple, trachea midline. No lymphadenopathy. Tracheostomy midline. EYES: No scleral icterus. No injection or drainage. CARDIOVASCULAR: Regular rate and rhythm without murmurs, gallops, or rubs. RESPIRATORY: Breath sounds equal bilaterally. No accessory muscle use. GASTROINTESTINAL: Abdomen soft, non-tender, nondistended. MUSCULOSKELETAL: No cyanosis, or edema. SKIN: Warm and dry. NEURO: No focal neurological deficitis. Diffuse weakness. Unable to move limbs against gravity. A/P Problem List: (1) Bilateral pneumonia ICD Code: J18.9 - Pneumonia, unspecified organism Status: Acute (2) Sepsis ICD Code: A41.9 - Sepsis, unspecified organism Status: Acute (3) Anxiety ICD Code: F41.9 - Anxiety disorder, unspecified Status: Chronic Assessment and Plan 47-year-old female admitted secondary to sepsis with pneumonia which converted into ARDS. Slow improvements. Advance diet. Right wrist orthesis. Sepsis Pneumonia Pulmonary cavitary lesions from MRSA pneumonia ARDS Acute phase is resolved Healing phase and process Chronic respiratory failure s/p Tracheostomy There is potential is can improve Continue tracheostomy Speech therapy Continue respiratory care Continue tracheostomy care Pulmonology following Generalized weakness Physical debility Critical Illness Polyneuropathy/critical illness myopathy Functional quadriparesis secondary to above Secondary to prolonged bed rest with prolonged intubation Continue physical therapy Continue occupational therapy Tachycardia Recent Bradycardic Arrest No recurrence Sotalol Cardiology following Aspirin Dysphagia Tube feeds continued Speech Therapy Hyperglycemia Follow blood sugars Hypothyroidism Likely related to metabolic changes of illness Further work up after patient's physiology normalizes Levothyroxine DVT Prophylaxis SCDs Heparin Discussed with the patient, nurse. Problem Qualifiers (1) Sepsis: Qualified Codes: A41.9 - Sepsis, unspecified organism Cheryle Allen MD Jan 17, 2018 15:28
[2018-01-18] VITALS (11 sets, daily range): BP systolic 86–118; BP diastolic 42–54; PULSE 71–93; RESP 16–20; TEMP 98.4–99.1; O2SAT 96–100
[2018-01-18] MEDS: MUPIROCIN 2% OINT 1 APPLIC/GM SYR EACH NARE SCH ×3 (00:16→21:00)
[2018-01-18] MEDS: SODIUM CHLORIDE 0.9% FLUSH 10 ML FLUSH IV FLUSH SCH ×4 (00:16→23:36)
[2018-01-18] MEDS: cloNIDine HCL 0.3 MG TAB PO SCH ×3 (00:16→12:13)
[2018-01-18] MEDS: FAMOTIDINE 20 MG TAB PO SCH ×3 (00:16→23:35)
[2018-01-18] MEDS: ALPRAZolam 0.5 MG TAB PO PRN ×2 (00:16→23:55)
[2018-01-18] MEDS: INSULIN DETEMIR 100 UNITS/ML VIAL SQ SCH (00:17)
[2018-01-18] MEDS: VANCOMYCIN 1,000 MG/NS 250 ML IV SCH ×6 (00:17→23:36)
[2018-01-18] MEDS: METOCLOPRAMIDE HCL 10 MG/2 ML VIAL IV PUSH SCH ×4 (00:18→23:36)
[2018-01-18] MEDS: INSULIN NovoLIN REGULAR SUPPLEMENTAL SCALE SQ SCH ×5 (06:00→21:00)
[2018-01-18] MEDS: LEVOTHYROXINE SODIUM 25 MCG TAB PO SCH (06:05)
[2018-01-18] MEDS: HEPARIN SODIUM - SQ 10,000 UNITS/ML VIAL SQ SCH ×3 (06:05→23:35)
[2018-01-18] MEDS: RESP: BUDESONIDE 0.5 MG/2 ML NEB NEB SCH ×2 (08:22→21:03)
--- NOTE | 2018-01-18 08:33 | HHI.PR ---
Subjective Remarks alert no distress on tbar Objective Vital Signs Date Time Temp Pulse Resp B/P (MAP) Pulse Ox O2 Delivery O2 Flow Rate FiO2 01/18/18 08:26 98 T-piece 28 01/18/18 08:00 98.4 79 18 86/42 (57) 100 01/18/18 04:05 75 01/18/18 04:00 T-Piece 28 01/18/18 04:00 98.5 91 18 101/48 (65) 98 01/18/18 00:00 T-Piece 28 01/18/18 00:00 98.4 92 18 118/54 (75) 96 01/17/18 23:49 82 01/17/18 20:44 98 T-piece 28 01/17/18 20:00 T-Piece 28 01/17/18 20:00 99.4 90 17 121/56 (77) 96 01/17/18 19:44 101 01/17/18 16:15 83 01/17/18 16:00 98.4 74 16 101/52 (68) 98 01/17/18 12:00 98.7 86 16 101/49 (66) 93 I/O 01/17/18 01/17/18 01/17/18 01/18/18 01/18/18 01/18/18 07:00 15:00 23:00 07:00 15:00 23:00 Intake Total 1463 ml 1472 ml Balance 1463 ml 1472 ml Intake Oral 480 ml 580 ml IV Total 250 ml 250 ml Tube Feeding 683 ml 522 ml Tube Irrigant 120 ml Other 50 ml # Voids 5 4 # Bowel Movements 1 2 Result Diagram: 01/17/18 1411 01/17/18 1411 Procedures BiPAP Objective Remarks GENERAL: sedated on vent support SKIN: Warm and dry. HEAD: Atraumatic. Normocephalic. EYES: Pupils equal and round. No scleral icterus. No injection or drainage. ENT: No nasal bleeding or discharge. Mucous membranes pink and moist. NECK: Trachea midline. No JVD. CARDIOVASCULAR: Regular rate and rhythm. RESPIRATORY: No accessory muscle use. Clear to auscultation. Breath sounds equal bilaterally. GASTROINTESTINAL: Abdomen soft, non-tender, nondistended. Hepatic and splenic margins not palpable. MUSCULOSKELETAL: Extremities without clubbing, cyanosis, or edema. No obvious deformities. NEUROLOGICAL: Awake and alert. No obvious cranial nerve deficits. Motor grossly within normal limits. Five out of 5 muscle strength in the arms and legs. Normal speech. PSYCHIATRIC: Appropriate mood and affect; insight and judgment normal. Assessment and Plan Assessment and Plan imp: ALERT, TRACHEOSTOMY IN PLACE respiratory failure/ plan O2 as needed pulm toilet PT Ileana Tejeda MD Jan 18, 2018 08:33
[2018-01-18 08:36] LABS: CREATININE 0.55 MG/DL (0.50-1.00)
[2018-01-18] MEDS: ASPIRIN 81 MG CHEW TAB CHEW SCH (08:46)
[2018-01-18] MEDS: fentaNYL 100 MCG/HR PATCH T-DERMAL SCH (09:00)
[2018-01-18] MEDS: REMOVE OLD DURAGESIC (FENTANYL) PATCH T-DERMAL SCH (09:00)
[2018-01-18] MEDS ORDERED: DEXTROSE 50% IN WATER 50 ML VIAL(D50) IV PUSH PRN (09:45)
[2018-01-18] MEDS ORDERED: GLUCAGON 1 MG/ML VIAL OTHER PRN (09:45)
--- NOTE | 2018-01-18 14:30 | HHI.IDPN ---
Subjective Subjective Remarks Patient is a 47-year-old female, who initially presented to [facility] ED complaining of 4 day history of chest pain and shortness of breath. In have any other history. She was apparently coughing and was bringing up some brownish phlegm. There was no mention of any fever or chills. No nausea or vomiting. No urinary complaints. Chest x-ray showed bilateral patchy basilar infiltrates. CTA did not show any pulmonary embolism, showed bilateral infiltrates with some cavitary lesions noted. She was transferred to the main hospital, and she apparently had some blood in the sputum. She ended up getting intubated. [facility] did bronchoscopy on her. Patient currently sedated postintubation. Her blood pressure is okay and she is not hypotensive. She is tachycardic. Infectious disease consultation has been requested to evaluate the patient with pneumonia Notes reviewed Main issue is her weakness, working with PT Doing well on Tpiece S/P trach and PEG. Temps ok BP ok WBC down to normal CXR stable CT chest - much improved as far as consolidation Tolerating TF Aspergillus test negative Antibiotics Vanco IV Current Medications Medications (Trade) Dose Ordered Sig/Marily Route Start Time Stop Time Status Last Admin (NS Flush) 2 ml UNSCH PRN IV FLUSH 12/15/17 22:30 (NS Flush) 2 ml BID IV FLUSH 12/16/17 09:00 01/18/18 08:47 (Robitussin Dm 200-20 Mg/10 ml Liq) 10 ml Q4H PRN PO 12/15/17 22:30 Future Hold (Heparin Inj) 5,000 units Q8H SQ 12/16/17 12:00 Future hold 01/18/18 12:13 (Morphine Inj) 1 mg Q4H PRN IM 12/16/17 09:15 Future Hold 12/16/17 10:11 (Mucinex Er) 600 mg BID PO 12/16/17 09:15 Future Hold 12/16/17 10:51 (Milk Of Magnesia Liq) 30 ml Q12H PRN PO 12/16/17 16:45 (Senokot) 17.2 mg Q12H PRN PO 12/16/17 16:45 12/28/17 08:39 (Dulcolax Supp) 10 mg DAILY PRN RECTAL 12/16/17 16:45 (Lactulose Liq) 30 ml DAILY PRN PO 12/16/17 16:45 (Peridex 0.12% Liq) 15 ml BID@08,20 MT 12/16/17 20:00 01/17/18 08:00 (Albuterol Neb) 2.5 mg Q2HR NEB PRN NEB 12/21/17 08:30 01/16/18 21:22 (Pulmicort Respule Neb) 0.5 mg Q12HR NEB NEB 12/21/17 20:00 01/18/18 08:22 (NS Flush) DAILY IV FLUSH 12/22/17 09:00 01/18/18 08:47 (NS Flush) UNSCH PRN IV FLUSH 12/21/17 09:15 12/28/17 21:22 (Bactroban Nasal 2% Oint) Taper BID EACH NARE 12/21/17 21:00 12/17/18 20:59 01/18/18 08:46 (Lacrilube Opht Oint) 1 applic Q12HR EACH EYE 12/21/17 10:00 01/17/18 09:00 (Tylenol 650 Mg/ 20 ml Liq) 650 mg Q6H PRN NG 12/21/17 09:30 01/02/18 08:21 (Pill Splitter) 1 ea UNSCH PRN OTHER 12/21/17 21:00 (Aspirin Chew) 81 mg DAILY CHEW 12/22/17 09:00 01/18/18 08:46 (Cathflo Activase Inj) 2 mg Q2H PRN INTRACATH 12/22/17 14:15 12/22/17 14:37 (Synthroid) 25 mcg DAILY@0600 PO 12/23/17 06:00 01/18/18 06:05 (Reglan Inj) 5 mg Q8H PRN IV PUSH 12/24/17 17:45 12/27/17 01:50 Pharmacy Profile Note 0 ml @ 0 mls/hr UNSCH OTHER 12/26/17 14:15 (Brethine Inj) 1 mg UNSCH PRN SQ 12/27/17 08:15 (Reglan Inj) 5 mg Q8H IV PUSH 12/28/17 15:00 01/18/18 06:05 (Xanax) 0.5 mg Q8H PRN PO 12/30/17 11:00 01/18/18 00:16 (Pepcid) 20 mg BID PO 01/01/18 21:00 01/18/18 08:46 (Levemir Inj) 12 units Q12HR SQ 01/02/18 21:00 Future Hold 01/18/18 00:17 Vancomycin HCl 1000 mg/Sodium Chloride 250 ml @ 250 mls/hr Q12H IV 01/09/18 11:00 01/18/18 12:12 (B & O Supp) 60 mg Q12H PRN RECTAL 01/10/18 00:45 01/12/18 10:12 (Catapres) 0.3 mg Q8HR PO 01/12/18 22:00 01/18/18 06:05 (Lopressor) 25 mg Q8H PRN PO 01/12/18 16:45 (D50w (Vial) Inj) 50 ml UNSCH PRN IV PUSH 01/18/18 09:45 (Glucagon Inj) 1 mg UNSCH PRN OTHER 01/18/18 09:45 (NovoLIN R SUPPLEMENTAL SCALE) 1 ACHS SLIDING SCALE SQ 01/18/18 12:00 (Lopressor) 12.5 mg Q12HR PO 01/18/18 21:00 Lines PIV Past Medical History Anxiety Past Surgical History Cholecystectomy Hysterectomy Allergies: Coded Allergies: No Known Allergies (Unverified , 12/15/17) Objective . Vital Signs Date Time Temp Pulse Resp B/P (MAP) Pulse Ox O2 Delivery O2 Flow Rate FiO2 01/18/18 12:00 98.7 78 16 92/43 (59) 99 01/18/18 08:26 98 T-piece 01/18/18 08:00 98.4 79 18 86/42 (57) 100 01/18/18 04:05 75 01/18/18 04:00 T-Piece 28 01/18/18 04:00 98.5 91 18 101/48 (65) 98 01/18/18 00:00 T-Piece 28 01/18/18 00:00 98.4 92 18 118/54 (75) 96 01/17/18 23:49 82 01/17/18 20:44 98 T-piece 28 01/17/18 20:00 T-Piece 28 01/17/18 20:00 99.4 90 17 121/56 (77) 96 01/17/18 19:44 101 01/17/18 16:15 83 01/17/18 16:00 98.4 74 16 101/52 (68) 98 . Laboratory Tests Test 01/17/18 14:11 White Blood Count 8.9 TH/MM3 Red Blood Count 3.90 MIL/MM3 Hemoglobin 11.6 GM/DL Hematocrit 33.7 % Mean Corpuscular Volume 86.4 FL Mean Corpuscular Hemoglobin 29.9 PG Mean Corpuscular Hemoglobin Concent 34.6 % Red Cell Distribution Width 14.2 % Platelet Count 227 TH/MM3 Mean Platelet Volume 8.1 FL Neutrophils (%) (Auto) 73.8 % Lymphocytes (%) (Auto) 15.4 % Monocytes (%) (Auto) 6.0 % Eosinophils (%) (Auto) 4.0 % Basophils (%) (Auto) 0.8 % Neutrophils # (Auto) 6.6 TH/MM3 Lymphocytes # (Auto) 1.4 TH/MM3 Monocytes # (Auto) 0.5 TH/MM3 Eosinophils # (Auto) 0.4 TH/MM3 Basophils # (Auto) 0.1 TH/MM3 CBC Comment DIFF FINAL Differential Comment Laboratory Tests Test 01/17/18 14:11 01/18/18 07:30 01/18/18 11:02 Blood Urea Nitrogen 30 MG/DL Creatinine 0.64 MG/DL 0.55 MG/DL Random Glucose 114 MG/DL Total Protein 7.7 GM/DL Albumin 3.0 GM/DL Calcium Level 9.7 MG/DL Alkaline Phosphatase 169 U/L Aspartate Amino Transf (AST/SGOT) 56 U/L Alanine Aminotransferase (ALT/SGPT) 50 U/L Total Bilirubin 0.4 MG/DL Sodium Level 139 MEQ/L Potassium Level 4.1 MEQ/L Chloride Level 102 MEQ/L Carbon Dioxide Level 28.5 MEQ/L Anion Gap 9 MEQ/L Estimat Glomerular Filtration Rate 100 ML/MIN 119 ML/MIN Imaging Abdomen/Pelvis CT 01/04/18 0000 Signed Impressions: Service Date/Time: Friday, January 05, 2018 00:57 - CONCLUSION: Rectal tube in good position. Some asymmetry of the renal nephrograms the left one being slightly delayed of uncertain etiology. Conceivably pyelonephritis would be within the differential on the left based on the patient's symptoms of leukocytosis. Ravinder Krause MD Chest X-Ray 01/02/18 06 Signed Impressions: Service Date/Time: Tuesday, January 02, 2018 03:45 - CONCLUSION: 1. Residual patchy densities right upper lobe and left lower lobe. Miguel Lynne MD CT Angiography 12/16/17 0000 Signed Impressions: Service Date/Time: Saturday, December 16, 2017 13:49 - CONCLUSION: 1. Negative for pulmonary emboli. 2. Dense consolidation in the lungs especially the lung bases with several cavitary lesions as above. Findings are most characteristic of pneumonia. Cannot exclude septic embolic disease. No significant effusion. Malachi Hardin MD Chest X-Ray 01/02/18 06 Signed Impressions: Service Date/Time: Tuesday, January 02, 2018 03:45 - CONCLUSION: 1. Residual patchy densities right upper lobe and left lower lobe. Miguel Lynne MD Chest X-Ray 01/01/18 06 Signed Impressions: Service Date/Time: Monday, January 01, 2018 02:48 - CONCLUSION: Improved aeration of the right lung with minimal bibasilar densities. Miguel Lynne MD Physical Exam GENERAL: Awake and following commands, NAD. SKIN: Warm and dry. No rash EYES: non icteric ENT: moist mucosae, no thrush NECK: Tracheostomy site ok CARDIOVASCULAR: HS audible. RESPIRATORY: Coarse BS dominga. Decreased at bases. ABDOMEN: soft , not tender, not distended BS+. PEG tube site ok. EXTREMITIES: Improving edema : clear yellow urine NEUROLOGICAL: Awake, responding. All extremities very weak PSYCHIATRIC: Awake, and cooperative LINE: No evidence of infection Assessment & Plan Remarks IMPRESSION Sepsis present, high grade, on admission, has MRSA on blood cultures - S/P arrest - last (+) BC 12/18 Bilateral pneumonia, some with cavitation, last CT did not show any cavitation - C/S with MRSA - CXR improving; CT improving Very worrisome for endocarditis - clinically , but JEANINE negative Respiratory failure. - S/P trach - CXR improving Leukocytosis, resolved Diarrhea, C diff negative x 2 RECOMMENDATION Continue IV Vanco - anticipate 6 weeks from last (+) BC - anticipated end date 01/28 Monitor progress Clinically stable from ID standpoint Liliam Su MD Jan 18, 2018 14:30
--- NOTE | 2018-01-18 15:09 | HHI.PR ---
Subjective Remarks The patient was seen earlier in the morning today. She says she has some more secretions especially in the morning. No nausea or vomiting no diarrhea or constipation. Says she does not have any pain with discontinue fentanyl patch. No nausea vomiting no diarrhea or constipation. Says she is eating better by mouth we will do calorie counts. Patient wants the feeding tube taken out if possible. Objective Vitals Vital Signs Date Time Temp Pulse Resp B/P (MAP) Pulse Ox O2 Delivery O2 Flow Rate FiO2 01/18/18 12:00 98.7 78 16 92/43 (59) 99 01/18/18 08:26 98 T-piece 28 01/18/18 08:00 71 01/18/18 08:00 T-Piece 28 01/18/18 08:00 98.4 79 18 86/42 (57) 100 01/18/18 04:05 75 01/18/18 04:00 T-Piece 28 01/18/18 04:00 98.5 91 18 101/48 (65) 98 01/18/18 00:00 T-Piece 28 01/18/18 00:00 98.4 92 18 118/54 (75) 96 01/17/18 23:49 82 01/17/18 20:44 98 T-piece 28 01/17/18 20:00 T-Piece 28 01/17/18 20:00 99.4 90 17 121/56 (77) 96 01/17/18 19:44 101 01/17/18 16:15 83 01/17/18 16:00 98.4 74 16 101/52 (68) 98 I/O 01/17/18 01/17/18 01/17/18 01/18/18 01/18/18 01/18/18 07:00 15:00 23:00 07:00 15:00 23:00 Intake Total 1463 ml 1472 ml Balance 1463 ml 1472 ml Intake Oral 480 ml 580 ml IV Total 250 ml 250 ml Tube Feeding 683 ml 522 ml Tube Irrigant 120 ml Other 50 ml # Voids 5 4 # Bowel Movements 1 2 Result Diagram: 01/17/18 1411 01/18/18 0730 Imaging Last Impressions Chest X-Ray 01/10/18 0600 Signed Impressions: Service Date/Time: January 03:55 - CONCLUSION: No significant change in aeration Demarco Gupta MD Chest CT 01/10/18 0000 Signed Impressions: Service Date/Time: January 17:23 - CONCLUSION: 1. There are areas of dense consolidation in the lung bases. These have significantly improved when compared to the prior exam. 2. Scattered emphysematous blebs within the pulmonary parenchyma. 3. Small area consolidation in the right middle lobe. 4. The emphysematous blebs in the right middle lobe and left lower lobe are new. The overall appearance of the chest is improved when compared to the previous study of 12/16/17. Adam Latif MD Abdomen X-Ray 01/09/18 0000 Signed Impressions: Service Date/Time: Tuesday, January 09, 2018 17:16 - CONCLUSION: No dilated loops of small bowel. Gastrostomy in place. Yomi Lopez MD Abdomen/Pelvis CT 01/04/18 0000 Signed Impressions: Service Date/Time: Friday, January 05, 2018 00:57 - CONCLUSION: Rectal tube in good position. Some asymmetry of the renal nephrograms the left one being slightly delayed of uncertain etiology. Conceivably pyelonephritis would be within the differential on the left based on the patient's symptoms of leukocytosis. Ravinder Krause MD CT Angiography 12/16/17 0000 Signed Impressions: Service Date/Time: Saturday, December 16, 2017 13:49 - CONCLUSION: 1. Negative for pulmonary emboli. 2. Dense consolidation in the lungs especially the lung bases with several cavitary lesions as above. Findings are most characteristic of pneumonia. Cannot exclude septic embolic disease. No significant effusion. Malachi Hardin MD Objective Remarks GENERAL: Patient is in bed with trach she appears to not acute distress at this time. HEAD: Normocephalic. NECK: Supple, trachea midline. No lymphadenopathy. Tracheostomy midline. EYES: No scleral icterus. No injection or drainage. CARDIOVASCULAR: Regular rate and rhythm without murmurs, gallops, or rubs. RESPIRATORY: Breath sounds equal bilaterally. No accessory muscle use. GASTROINTESTINAL: Abdomen soft, non-tender, nondistended. MUSCULOSKELETAL: No cyanosis, or edema. SKIN: Warm and dry. NEURO: No focal neurological deficitis. Diffuse weakness. Unable to move limbs against gravity. A/P Problem List: (1) Bilateral pneumonia ICD Code: J18.9 - Pneumonia, unspecified organism Status: Acute (2) Sepsis ICD Code: A41.9 - Sepsis, unspecified organism Status: Acute (3) Anxiety ICD Code: F41.9 - Anxiety disorder, unspecified Status: Chronic Assessment and Plan 47-year-old female admitted secondary to sepsis with pneumonia which converted into ARDS. Slow improvements. Advance diet. Right wrist orthesis. Sepsis. resolving Pneumonia, resolving Pulmonary cavitary lesions from MRSA pneumonia, resolving ARDS Acute phase is resolved Healing phase and process Chronic respiratory failure s/p Tracheostomy There is potential is can improve Continue tracheostomy Speech therapy Continue respiratory care Continue tracheostomy care Pulmonology following Generalized weakness Physical debility Critical Illness Polyneuropathy/critical illness myopathy Functional quadriparesis secondary to above Secondary to prolonged bed rest with prolonged intubation Continue physical therapy Continue occupational therapy Tachycardia Recent Bradycardic Arrest Noted hypotensive BP DC lasix, clonidine Add metroprolol 12.5 mg po bid and hold if SBP< 110 or HR< 60. Monitor closely VS. Cardiology evaluated patient Aspirin Dysphagia Tube feeds DCd. Consult employee development manager for calorie count to evaluate for need of feeding tube. Add ensure to diet. Speech Therapy Hyperglycemia Follow blood sugars Hypothyroidism Likely related to metabolic changes of illness Further work up after patient's physiology normalizes Levothyroxine DVT Prophylaxis SCDs Heparin Discussed with the patient, nurse. Problem Qualifiers (1) Sepsis: Qualified Codes: A41.9 - Sepsis, unspecified organism Cheryle Allen MD Jan 18, 2018 15:09
[2018-01-18] MEDS ORDERED: SODIUM CHLOR 0.9% 250 ML INJ 250 ML IV ONE (15:30)
[2018-01-18] MEDS: CHLORHEXIDINE 0.12% (ORAL KIT) 15 ML CUP MT SCH (20:00)
[2018-01-18] MEDS: ARTIFICIAL TEARS OPTH OINT 3.5 APPLIC/3.5 GM TUBO EACH EYE SCH (21:00)
[2018-01-18] MEDS: METOPROLOL TARTRATE 25 MG TAB PO SCH (21:00)
[2018-01-18] MEDS: RESP: ALBUTEROL 2.5 MG/3 ML NEB (PRN) NEB (21:03)
[2018-01-18] MEDS ORDERED: cloNIDine HCL 0.1 MG TAB PO SCH (22:00)
[2018-01-19] VITALS (13 sets, daily range): BP systolic 111–129; BP diastolic 55–76; PULSE 80–124; RESP 18; TEMP 98.3–100.1; O2SAT 97–100
[2018-01-19] MEDS: HEPARIN SODIUM - SQ 10,000 UNITS/ML VIAL SQ SCH ×3 (04:49→22:34)
[2018-01-19] MEDS: LEVOTHYROXINE SODIUM 25 MCG TAB PO SCH (04:49)
[2018-01-19] MEDS: METOCLOPRAMIDE HCL 10 MG/2 ML VIAL IV PUSH SCH ×3 (06:21→22:51)
[2018-01-19] MEDS: CHLORHEXIDINE 0.12% (ORAL KIT) 15 ML CUP MT SCH ×2 (08:00→20:00)
[2018-01-19] MEDS: INSULIN NovoLIN REGULAR SUPPLEMENTAL SCALE SQ SCH ×4 (08:00→21:00)
[2018-01-19] MEDS: RESP: ALBUTEROL 2.5 MG/3 ML NEB (PRN) NEB ×2 (08:51→20:56)
[2018-01-19] MEDS: RESP: BUDESONIDE 0.5 MG/2 ML NEB NEB SCH ×2 (08:51→20:56)
[2018-01-19] MEDS: ARTIFICIAL TEARS OPTH OINT 3.5 APPLIC/3.5 GM TUBO EACH EYE SCH ×2 (09:00→21:00)
[2018-01-19] MEDS: MUPIROCIN 2% OINT 1 APPLIC/GM SYR EACH NARE SCH ×2 (09:00→21:00)
[2018-01-19] MEDS: SODIUM CHLORIDE 0.9% FLUSH 10 ML FLUSH IV FLUSH SCH ×3 (09:16→22:32)
[2018-01-19] MEDS: FAMOTIDINE 20 MG TAB PO SCH ×2 (09:16→22:32)
[2018-01-19] MEDS: ASPIRIN 81 MG CHEW TAB CHEW SCH (09:16)
[2018-01-19] MEDS: METOPROLOL TARTRATE 25 MG TAB PO SCH ×2 (09:22→22:31)
[2018-01-19] MEDS: VANCOMYCIN 1,000 MG/NS 250 ML IV SCH ×4 (12:28→22:51)
[2018-01-19] MEDS: ACETAMINOPHEN 650 MG/20.3 ML UDC NG PRN (16:03)
[2018-01-19] MEDS: ALPRAZolam 0.5 MG TAB PO PRN ×2 (16:04→22:50)
--- NOTE | 2018-01-19 16:38 | HHI.PR ---
Subjective Remarks Was seen earlier today. In bed says she has some secretions. No nausea vomiting no diarrhea or constipation blood pressure is better controlled. Not much cough. Says she is eating better and she is refusing bolus feedings Objective Vitals Vital Signs Date Time Temp Pulse Resp B/P (MAP) Pulse Ox O2 Delivery O2 Flow Rate FiO2 01/19/18 12:00 100.1 92 18 119/58 (78) 98 01/19/18 08:58 99 T-piece 28 01/19/18 08:20 Room Air 01/19/18 08:00 98.7 102 18 113/57 (75) 98 01/19/18 06:06 98.3 81 18 111/59 (76) 100 01/19/18 04:30 80 01/19/18 00:30 91 01/19/18 00:00 98.8 85 18 118/55 (76) 97 01/18/18 21:33 T-Piece 01/18/18 21:03 96 T-piece 28 01/18/18 20:30 91 01/18/18 20:00 99.1 92 20 107/53 (71) 100 I/O 01/18/18 01/18/18 01/18/18 01/19/18 01/19/18 01/19/18 07:00 15:00 23:00 07:00 15:00 23:00 Intake Total 1472 ml 240 ml 120 ml Balance 1472 ml 240 ml 120 ml Intake Oral 580 ml 240 ml 120 ml IV Total 250 ml Tube Feeding 522 ml Tube Irrigant 120 ml # Voids 4 3 2 # Bowel Movements 2 1 Result Diagram: 01/17/18 1411 01/18/18 0730 Imaging Last Impressions Chest X-Ray 01/10/18 0600 Signed Impressions: Service Date/Time: January 03:55 - CONCLUSION: No significant change in aeration Demarco Gupta MD Chest CT 01/10/18 0000 Signed Impressions: Service Date/Time: January 17:23 - CONCLUSION: 1. There are areas of dense consolidation in the lung bases. These have significantly improved when compared to the prior exam. 2. Scattered emphysematous blebs within the pulmonary parenchyma. 3. Small area consolidation in the right middle lobe. 4. The emphysematous blebs in the right middle lobe and left lower lobe are new. The overall appearance of the chest is improved when compared to the previous study of 12/16/17. Adam Latif MD Abdomen X-Ray 01/09/18 0000 Signed Impressions: Service Date/Time: Tuesday, January 09, 2018 17:16 - CONCLUSION: No dilated loops of small bowel. Gastrostomy in place. Yomi Lopez MD Abdomen/Pelvis CT 01/04/18 0000 Signed Impressions: Service Date/Time: Friday, January 05, 2018 00:57 - CONCLUSION: Rectal tube in good position. Some asymmetry of the renal nephrograms the left one being slightly delayed of uncertain etiology. Conceivably pyelonephritis would be within the differential on the left based on the patient's symptoms of leukocytosis. Ravinder Krause MD CT Angiography 12/16/17 0000 Signed Impressions: Service Date/Time: Saturday, December 16, 2017 13:49 - CONCLUSION: 1. Negative for pulmonary emboli. 2. Dense consolidation in the lungs especially the lung bases with several cavitary lesions as above. Findings are most characteristic of pneumonia. Cannot exclude septic embolic disease. No significant effusion. Malachi Hardin MD Objective Remarks GENERAL: Patient is in bed with trach she appears to not acute distress at this time. HEAD: Normocephalic. NECK: Supple, trachea midline. No lymphadenopathy. Tracheostomy midline. EYES: No scleral icterus. No injection or drainage. CARDIOVASCULAR: Regular rate and rhythm without murmurs, gallops, or rubs. RESPIRATORY: Breath sounds equal bilaterally. No accessory muscle use. GASTROINTESTINAL: Abdomen soft, non-tender, nondistended. MUSCULOSKELETAL: No cyanosis, or edema. SKIN: Warm and dry. NEURO: No focal neurological deficitis. Diffuse weakness. Unable to move limbs against gravity. A/P Problem List: (1) Bilateral pneumonia ICD Code: J18.9 - Pneumonia, unspecified organism Status: Acute (2) Sepsis ICD Code: A41.9 - Sepsis, unspecified organism Status: Acute (3) Anxiety ICD Code: F41.9 - Anxiety disorder, unspecified Status: Chronic Assessment and Plan 47-year-old female admitted secondary to sepsis with pneumonia which converted into ARDS. Slow improvements. Advance diet. Right wrist orthesis. Sepsis. resolving Pneumonia, resolving Pulmonary cavitary lesions from MRSA pneumonia, resolving ARDS Acute phase is resolved Healing phase and process Chronic respiratory failure s/p Tracheostomy There is potential is can improve Continue tracheostomy Speech therapy Continue respiratory care Continue tracheostomy care Pulmonology following Generalized weakness Physical debility Critical Illness Polyneuropathy/critical illness myopathy Functional quadriparesis secondary to above Secondary to prolonged bed rest with prolonged intubation Continue physical therapy Continue occupational therapy Tachycardia Recent Bradycardic Arrest Noted hypotensive BP DC lasix, clonidine Add metroprolol 12.5 mg po bid and hold if SBP< 110 or HR< 60. Monitor closely VS. Cardiology evaluated patient Aspirin Dysphagia Discussed with the dietitian. Patient needs x-ray and bolus feedings. However the patient is refusing the bolus feedings. Says she is eating enough by mouth and she does not want to supplement with feeding tube. Speech Therapy Hyperglycemia Follow blood sugars Hypothyroidism Likely related to metabolic changes of illness Further work up after patient's physiology normalizes Levothyroxine DVT Prophylaxis SCDs Heparin Discussed with the patient, nurse. Problem Qualifiers (1) Sepsis: Qualified Codes: A41.9 - Sepsis, unspecified organism Cehryle Allen MD Jan 19, 2018 16:38
[2018-01-20] VITALS (9 sets, daily range): BP systolic 116–141; BP diastolic 58–77; PULSE 83–101; RESP 18–20; TEMP 98.2–99; O2SAT 96–99
[2018-01-20] MEDS: ALPRAZolam 0.5 MG TAB PO PRN ×2 (06:00→22:44)
[2018-01-20] MEDS: HEPARIN SODIUM - SQ 10,000 UNITS/ML VIAL SQ SCH ×3 (06:31→22:46)
[2018-01-20] MEDS: METOCLOPRAMIDE HCL 10 MG/2 ML VIAL IV PUSH SCH ×3 (06:32→22:45)
[2018-01-20] MEDS: LEVOTHYROXINE SODIUM 25 MCG TAB PO SCH (06:32)
[2018-01-20] MEDS: INSULIN NovoLIN REGULAR SUPPLEMENTAL SCALE SQ SCH ×4 (07:56→21:00)
[2018-01-20] MEDS: CHLORHEXIDINE 0.12% (ORAL KIT) 15 ML CUP MT SCH ×2 (08:00→20:00)
[2018-01-20] MEDS: ARTIFICIAL TEARS OPTH OINT 3.5 APPLIC/3.5 GM TUBO EACH EYE SCH ×2 (09:00→21:00)
[2018-01-20] MEDS: MUPIROCIN 2% OINT 1 APPLIC/GM SYR EACH NARE SCH ×2 (09:00→21:00)
[2018-01-20] MEDS: METOPROLOL TARTRATE 25 MG TAB PO SCH ×2 (09:39→21:00)
[2018-01-20] MEDS: FAMOTIDINE 20 MG TAB PO SCH ×2 (09:39→22:45)
[2018-01-20] MEDS: ASPIRIN 81 MG CHEW TAB CHEW SCH (09:39)
[2018-01-20] MEDS: SODIUM CHLORIDE 0.9% FLUSH 10 ML FLUSH IV FLUSH SCH ×3 (09:40→22:46)
[2018-01-20] MEDS: RESP: BUDESONIDE 0.5 MG/2 ML NEB NEB SCH ×2 (10:01→20:39)
[2018-01-20] MEDS: VANCOMYCIN 1,000 MG/NS 250 ML IV SCH ×4 (10:33→23:02)
--- NOTE | 2018-01-20 14:52 | HHI.PR ---
Subjective Remarks In nad. No n/v/d/c. Denies chest pain or sob. Says she is eating well and refusing supplemental tube feeds. No events overnight. Objective Vitals Vital Signs Date Time Temp Pulse Resp B/P (MAP) Pulse Ox O2 Delivery O2 Flow Rate FiO2 01/20/18 12:00 98.2 83 20 128/59 (82) 97 01/20/18 10:01 97 T-piece 28 01/20/18 08:00 98.5 95 20 130/61 (84) 99 01/20/18 04:00 89 01/20/18 04:00 98.2 93 18 139/77 (97) 97 01/20/18 00:00 98.8 101 19 141/72 (95) 96 01/20/18 00:00 96 01/19/18 20:55 99 T-piece 5.00 28 01/19/18 20:00 99.2 102 18 129/76 (93) 98 01/19/18 20:00 124 01/19/18 19:00 T-Piece 5.00 28 01/19/18 17:15 99.6 01/19/18 15:44 100 I/O 01/19/18 01/19/18 01/19/18 01/20/18 01/20/18 01/20/18 07:00 15:00 23:00 07:00 15:00 23:00 Intake Total 120 ml 250 ml 480 ml 250 ml Balance 120 ml 250 ml 480 ml 250 ml Intake Oral 120 ml 480 ml 0 ml IV Total 250 ml 250 ml # Voids 2 6 3 # Bowel Movements 6 1 Result Diagram: 01/17/18 1411 01/18/18 0730 Imaging Last Impressions Chest X-Ray 01/10/18 0600 Signed Impressions: Service Date/Time: January 03:55 - CONCLUSION: No significant change in aeration Demarco Gupta MD Chest CT 01/10/18 0000 Signed Impressions: Service Date/Time: January 17:23 - CONCLUSION: 1. There are areas of dense consolidation in the lung bases. These have significantly improved when compared to the prior exam. 2. Scattered emphysematous blebs within the pulmonary parenchyma. 3. Small area consolidation in the right middle lobe. 4. The emphysematous blebs in the right middle lobe and left lower lobe are new. The overall appearance of the chest is improved when compared to the previous study of 12/16/17. Adam Latif MD Abdomen X-Ray 01/09/18 0000 Signed Impressions: Service Date/Time: Tuesday, January 09, 2018 17:16 - CONCLUSION: No dilated loops of small bowel. Gastrostomy in place. Yomi Lopez MD Abdomen/Pelvis CT 01/04/18 0000 Signed Impressions: Service Date/Time: Friday, January 05, 2018 00:57 - CONCLUSION: Rectal tube in good position. Some asymmetry of the renal nephrograms the left one being slightly delayed of uncertain etiology. Conceivably pyelonephritis would be within the differential on the left based on the patient's symptoms of leukocytosis. Ravinder Krause MD CT Angiography 12/16/17 0000 Signed Impressions: Service Date/Time: Saturday, December 16, 2017 13:49 - CONCLUSION: 1. Negative for pulmonary emboli. 2. Dense consolidation in the lungs especially the lung bases with several cavitary lesions as above. Findings are most characteristic of pneumonia. Cannot exclude septic embolic disease. No significant effusion. Malachi Hardin MD Objective Remarks GENERAL: Patient is in bed with trach she appears to not acute distress at this time. HEAD: Normocephalic. NECK: Supple, trachea midline. No lymphadenopathy. Tracheostomy midline. EYES: No scleral icterus. No injection or drainage. CARDIOVASCULAR: Regular rate and rhythm without murmurs, gallops, or rubs. RESPIRATORY: Breath sounds equal bilaterally. No accessory muscle use. GASTROINTESTINAL: Abdomen soft, non-tender, nondistended. MUSCULOSKELETAL: No cyanosis, or edema. SKIN: Warm and dry. NEURO: No focal neurological deficitis. Diffuse weakness. Unable to move limbs against gravity. A/P Problem List: (1) Bilateral pneumonia ICD Code: J18.9 - Pneumonia, unspecified organism Status: Acute (2) Sepsis ICD Code: A41.9 - Sepsis, unspecified organism Status: Acute (3) Anxiety ICD Code: F41.9 - Anxiety disorder, unspecified Status: Chronic Assessment and Plan 47-year-old female admitted secondary to sepsis with pneumonia which converted into ARDS. Slow improvements. Advance diet. Right wrist orthesis. Sepsis. resolving Pneumonia, resolving Pulmonary cavitary lesions from MRSA pneumonia, resolving ARDS Acute phase is resolved Healing phase and process Chronic respiratory failure s/p Tracheostomy There is potential is can improve Continue tracheostomy Speech therapy Continue respiratory care Continue tracheostomy care Pulmonology following Generalized weakness Physical debility Critical Illness Polyneuropathy/critical illness myopathy Functional quadriparesis secondary to above Secondary to prolonged bed rest with prolonged intubation Continue physical therapy Continue occupational therapy Tachycardia Recent Bradycardic Arrest Noted hypotensive BP DC lasix, clonidine Add metroprolol 12.5 mg po bid and hold if SBP< 110 or HR< 60. Monitor closely VS. Cardiology evaluated patient Aspirin Dysphagia Discussed with the dietitian. Patient needs x-ray and bolus feedings. However the patient is refusing the bolus feedings. Says she is eating enough by mouth and she does not want to supplement with feeding tube. Speech Therapy Hyperglycemia Follow blood sugars Hypothyroidism Likely related to metabolic changes of illness Further work up after patient's physiology normalizes Levothyroxine DVT Prophylaxis SCDs Heparin Discussed with the patient, nurse. Problem Qualifiers (1) Sepsis: Qualified Codes: A41.9 - Sepsis, unspecified organism Cheryle Allen MD Jan 20, 2018 14:52
[2018-01-21] VITALS (13 sets, daily range): BP systolic 115–144; BP diastolic 68–81; PULSE 80–116; RESP 16–22; TEMP 97.9–99.1; O2SAT 96–100
[2018-01-21] MEDS: LEVOTHYROXINE SODIUM 25 MCG TAB PO SCH (05:23)
[2018-01-21] MEDS: HEPARIN SODIUM - SQ 10,000 UNITS/ML VIAL SQ SCH ×3 (05:23→21:29)
[2018-01-21] MEDS: METOCLOPRAMIDE HCL 10 MG/2 ML VIAL IV PUSH SCH ×2 (05:24→14:02)
[2018-01-21] MEDS: RESP: BUDESONIDE 0.5 MG/2 ML NEB NEB SCH ×2 (07:49→20:24)
[2018-01-21] MEDS: CHLORHEXIDINE 0.12% (ORAL KIT) 15 ML CUP MT SCH ×2 (08:00→20:00)
[2018-01-21] MEDS: INSULIN NovoLIN REGULAR SUPPLEMENTAL SCALE SQ SCH ×4 (08:00→21:00)
[2018-01-21] MEDS: SODIUM CHLORIDE 0.9% FLUSH 10 ML FLUSH IV FLUSH SCH ×3 (09:00→21:29)
[2018-01-21] MEDS: ARTIFICIAL TEARS OPTH OINT 3.5 APPLIC/3.5 GM TUBO EACH EYE SCH ×2 (09:00→21:00)
[2018-01-21] MEDS: MUPIROCIN 2% OINT 1 APPLIC/GM SYR EACH NARE SCH ×2 (09:48→21:29)
[2018-01-21] MEDS: FAMOTIDINE 20 MG TAB PO SCH ×2 (09:48→21:28)
[2018-01-21] MEDS: METOPROLOL TARTRATE 25 MG TAB PO SCH ×2 (09:48→21:29)
[2018-01-21] MEDS: ASPIRIN 81 MG CHEW TAB CHEW SCH (09:48)
[2018-01-21] MEDS: VANCOMYCIN 1,000 MG/NS 250 ML IV SCH ×2 (09:49)
--- NOTE | 2018-01-21 14:42 | HHI.PR ---
Subjective Remarks No nausea vomiting the patient is in bed. Secretions. Discussed with her and dietitian regarding nutrition needs. Patient agrees to the plan. She is asking when her trach will be pulled out. No cough no fever or chills. No diarrhea or constipation. Says she has not much appetite. Will add multivitamins. Objective Vitals Vital Signs Date Time Temp Pulse Resp B/P (MAP) Pulse Ox O2 Delivery O2 Flow Rate FiO2 01/21/18 11:50 99.1 82 20 141/70 (93) 98 01/21/18 07:49 99 T-piece 6.00 28 01/21/18 07:40 98.7 85 18 138/77 (97) 97 01/21/18 07:15 98 T-Piece 5.00 28 Humidified 01/21/18 04:00 97.9 97 16 125/70 (88) 97 01/21/18 04:00 T-Piece 5.00 28 Humidified 01/21/18 04:00 80 01/21/18 00:00 98.2 89 19 137/75 (95) 100 01/21/18 00:00 T-Piece 5.00 28 Humidified 01/21/18 00:00 80 01/20/18 20:44 97 T-piece 5.00 28 01/20/18 20:05 T-Piece 5.00 28 Humidified 01/20/18 20:00 99.0 92 18 138/62 (87) 99 01/20/18 20:00 93 01/20/18 16:00 87 01/20/18 16:00 98.7 87 20 116/58 (77) 97 I/O 01/20/18 01/20/18 01/20/18 01/21/18 01/21/18 01/21/18 07:00 15:00 23:00 07:00 15:00 23:00 Intake Total 250 ml 240 ml 200 ml Balance 250 ml 240 ml 200 ml Intake Oral 0 ml 240 ml 200 ml IV Total 250 ml # Voids 3 4 3 # Bowel Movements 1 4 Result Diagram: 01/17/18 1411 01/18/18 0730 Imaging Last Impressions Chest X-Ray 01/10/18 0600 Signed Impressions: Service Date/Time: January 03:55 - CONCLUSION: No significant change in aeration Demarco Gupta MD Chest CT 01/10/18 0000 Signed Impressions: Service Date/Time: January 17:23 - CONCLUSION: 1. There are areas of dense consolidation in the lung bases. These have significantly improved when compared to the prior exam. 2. Scattered emphysematous blebs within the pulmonary parenchyma. 3. Small area consolidation in the right middle lobe. 4. The emphysematous blebs in the right middle lobe and left lower lobe are new. The overall appearance of the chest is improved when compared to the previous study of 12/16/17. Adam Latif MD Abdomen X-Ray 01/09/18 0000 Signed Impressions: Service Date/Time: Tuesday, January 09, 2018 17:16 - CONCLUSION: No dilated loops of small bowel. Gastrostomy in place. Yomi Lopez MD Abdomen/Pelvis CT 01/04/18 0000 Signed Impressions: Service Date/Time: Friday, January 05, 2018 00:57 - CONCLUSION: Rectal tube in good position. Some asymmetry of the renal nephrograms the left one being slightly delayed of uncertain etiology. Conceivably pyelonephritis would be within the differential on the left based on the patient's symptoms of leukocytosis. Ravinder Krause MD CT Angiography 12/16/17 0000 Signed Impressions: Service Date/Time: Saturday, December 16, 2017 13:49 - CONCLUSION: 1. Negative for pulmonary emboli. 2. Dense consolidation in the lungs especially the lung bases with several cavitary lesions as above. Findings are most characteristic of pneumonia. Cannot exclude septic embolic disease. No significant effusion. Malachi Hardin MD Objective Remarks GENERAL: Patient is in bed with trach she appears to not acute distress at this time. HEAD: Normocephalic. NECK: Supple, trachea midline. No lymphadenopathy. Tracheostomy midline. EYES: No scleral icterus. No injection or drainage. CARDIOVASCULAR: Regular rate and rhythm without murmurs, gallops, or rubs. RESPIRATORY: Breath sounds equal bilaterally. No accessory muscle use. GASTROINTESTINAL: Abdomen soft, non-tender, nondistended. MUSCULOSKELETAL: No cyanosis, or edema. SKIN: Warm and dry. NEURO: No focal neurological deficitis. Diffuse weakness. Unable to move limbs against gravity. A/P Problem List: (1) Bilateral pneumonia ICD Code: J18.9 - Pneumonia, unspecified organism Status: Acute (2) Sepsis ICD Code: A41.9 - Sepsis, unspecified organism Status: Acute (3) Anxiety ICD Code: F41.9 - Anxiety disorder, unspecified Status: Chronic Assessment and Plan 47-year-old female admitted secondary to sepsis with pneumonia which converted into ARDS. Slow improvements. Advance diet. Right wrist orthesis. Sepsis. resolving Pneumonia, resolving Pulmonary cavitary lesions from MRSA pneumonia, resolving ARDS Acute phase is resolved Healing phase and process Chronic respiratory failure s/p Tracheostomy There is potential is can improve Continue tracheostomy Speech therapy Continue respiratory care Continue tracheostomy care Pulmonology following Generalized weakness Physical debility Critical Illness Polyneuropathy/critical illness myopathy Functional quadriparesis secondary to above Secondary to prolonged bed rest with prolonged intubation Continue physical therapy Continue occupational therapy Tachycardia Recent Bradycardic Arrest Noted hypotensive BP DC lasix, clonidine Add metroprolol 12.5 mg po bid and hold if SBP< 110 or HR< 60. Monitor closely VS. Cardiology evaluated patient Aspirin Dysphagia Discussed with the dietitian. Jevity 1.5: 120 mls after each meal to supplement PO intake. Jevity 1.5 : 240 mls at night Bolus water 100 ml at 6AM and 6PM Enlive TID, Mighty Shake TID. Add MVT Speech Therapy Hyperglycemia Follow blood sugars Hypothyroidism Likely related to metabolic changes of illness Further work up after patient's physiology normalizes Levothyroxine DVT Prophylaxis SCDs Heparin Discussed with the patient, nurse, director professional services. Problem Qualifiers (1) Sepsis: Qualified Codes: A41.9 - Sepsis, unspecified organism Cheryle Allen MD Jan 21, 2018 14:41
--- NOTE | 2018-01-21 16:14 | HHI.PR ---
Subjective Remarks alert no distress on tbar Objective Vital Signs Date Time Temp Pulse Resp B/P (MAP) Pulse Ox O2 Delivery O2 Flow Rate FiO2 01/21/18 16:10 96 T-piece 6.00 28 01/21/18 11:50 99.1 82 20 141/70 (93) 98 01/21/18 07:49 99 T-piece 6.00 28 01/21/18 07:40 98.7 85 18 138/77 (97) 97 01/21/18 07:15 98 T-Piece 5.00 28 Humidified 01/21/18 04:00 97.9 97 16 125/70 (88) 97 01/21/18 04:00 T-Piece 5.00 28 Humidified 01/21/18 04:00 80 01/21/18 00:00 98.2 89 19 137/75 (95) 100 01/21/18 00:00 T-Piece 5.00 28 Humidified 01/21/18 00:00 80 01/20/18 20:44 97 T-piece 5.00 28 01/20/18 20:05 T-Piece 5.00 28 Humidified 01/20/18 20:00 99.0 92 18 138/62 (87) 99 01/20/18 20:00 93 I/O 01/20/18 01/20/18 01/20/18 01/21/18 01/21/18 01/21/18 07:00 15:00 23:00 07:00 15:00 23:00 Intake Total 250 ml 240 ml 200 ml Balance 250 ml 240 ml 200 ml Intake Oral 0 ml 240 ml 200 ml IV Total 250 ml # Voids 3 4 3 # Bowel Movements 1 4 Result Diagram: 01/17/18 1411 01/18/18 0730 Procedures BiPAP Objective Remarks GENERAL: sedated on vent support SKIN: Warm and dry. HEAD: Atraumatic. Normocephalic. EYES: Pupils equal and round. No scleral icterus. No injection or drainage. ENT: No nasal bleeding or discharge. Mucous membranes pink and moist. NECK: Trachea midline. No JVD. CARDIOVASCULAR: Regular rate and rhythm. RESPIRATORY: No accessory muscle use. Clear to auscultation. Breath sounds equal bilaterally. GASTROINTESTINAL: Abdomen soft, non-tender, nondistended. Hepatic and splenic margins not palpable. MUSCULOSKELETAL: Extremities without clubbing, cyanosis, or edema. No obvious deformities. NEUROLOGICAL: Awake and alert. No obvious cranial nerve deficits. Motor grossly within normal limits. Five out of 5 muscle strength in the arms and legs. Normal speech. PSYCHIATRIC: Appropriate mood and affect; insight and judgment normal. Assessment and Plan Assessment and Plan imp: ALERT, TRACHEOSTOMY IN PLACE respiratory failure/ plan O2 as needed pulm toilet PT REMOVE TRACH WHEN POSSIBLE Ileana Tejeda MD Jan 21, 2018 16:14
[2018-01-21] MEDS: ALPRAZolam 0.5 MG TAB PO PRN (21:28)
[2018-01-21] MEDS ORDERED: PHARMACY ORDERED LAB ONE (22:45)
[2018-01-22] VITALS (10 sets, daily range): BP systolic 118–142; BP diastolic 70–79; PULSE 88–115; RESP 15–20; TEMP 97.8–98.9; O2SAT 94–99
[2018-01-22] MEDS: RESP: ALBUTEROL 2.5 MG/3 ML NEB (PRN) NEB (00:31)
[2018-01-22] MEDS: VANCOMYCIN 1,000 MG/NS 250 ML IV SCH ×6 (00:39→23:10)
[2018-01-22] MEDS: METOCLOPRAMIDE HCL 10 MG/2 ML VIAL IV PUSH SCH ×4 (00:39→23:00)
[2018-01-22 01:24] LABS: CREATININE 0.45 MG/DL (0.50-1.00)
[2018-01-22] MEDS: ALPRAZolam 0.5 MG TAB PO PRN ×2 (05:37→20:47)
[2018-01-22] MEDS: HEPARIN SODIUM - SQ 10,000 UNITS/ML VIAL SQ SCH ×3 (05:38→20:00)
[2018-01-22] MEDS: LEVOTHYROXINE SODIUM 25 MCG TAB PO SCH (05:38)
[2018-01-22] MEDS: RESP: BUDESONIDE 0.5 MG/2 ML NEB NEB SCH ×2 (07:58→19:20)
[2018-01-22] MEDS: INSULIN NovoLIN REGULAR SUPPLEMENTAL SCALE SQ SCH ×4 (08:00→20:53)
[2018-01-22] MEDS: CHLORHEXIDINE 0.12% (ORAL KIT) 15 ML CUP MT SCH ×2 (08:00→20:00)
--- NOTE | 2018-01-22 08:49 | HHI.PR ---
Subjective Remarks alert no distress on T Bar Objective Vital Signs Date Time Temp Pulse Resp B/P (MAP) Pulse Ox O2 Delivery O2 Flow Rate FiO2 01/22/18 07:59 99 T-piece 28 01/22/18 04:00 T-Piece 28 01/22/18 04:00 98.9 97 20 128/79 (95) 99 01/22/18 03:47 94 01/22/18 00:05 95 01/21/18 23:47 T-Piece 28 01/21/18 23:47 99.0 92 18 115/68 (84) 99 01/21/18 20:36 97 6.00 28 01/21/18 20:00 T-Piece 28 01/21/18 20:00 98.9 104 22 144/76 (98) 98 01/21/18 19:46 116 01/21/18 16:10 96 T-piece 6.00 28 01/21/18 16:10 98.8 87 18 133/81 (98) 98 01/21/18 16:00 82 01/21/18 12:00 105 01/21/18 11:50 99.1 82 20 141/70 (93) 98 I/O 01/21/18 01/21/18 01/21/18 01/22/18 01/22/18 01/22/18 07:00 15:00 23:00 07:00 15:00 23:00 Intake Total 200 ml 730 ml 1300 ml Balance 200 ml 730 ml 1300 ml Intake Oral 200 ml 480 ml 610 ml IV Total 250 ml 250 ml Tube Feeding 240 ml Other 200 ml # Voids 3 3 4 # Bowel Movements 2 2 Result Diagram: 01/22/18 0030 Procedures BiPAP Objective Remarks GENERAL: sedated on vent support SKIN: Warm and dry. HEAD: Atraumatic. Normocephalic. EYES: Pupils equal and round. No scleral icterus. No injection or drainage. ENT: No nasal bleeding or discharge. Mucous membranes pink and moist. NECK: Trachea midline. No JVD. CARDIOVASCULAR: Regular rate and rhythm. RESPIRATORY: No accessory muscle use. Clear to auscultation. Breath sounds equal bilaterally. GASTROINTESTINAL: Abdomen soft, non-tender, nondistended. Hepatic and splenic margins not palpable. MUSCULOSKELETAL: Extremities without clubbing, cyanosis, or edema. No obvious deformities. NEUROLOGICAL: Awake and alert. No obvious cranial nerve deficits. Motor grossly within normal limits. Five out of 5 muscle strength in the arms and legs. Normal speech. PSYCHIATRIC: Appropriate mood and affect; insight and judgment normal. Assessment and Plan Assessment and Plan imp: ALERT, TRACHEOSTOMY IN PLACE respiratory failure/ plan O2 as needed pulm toilet PT change trach to cuffless Ileana Tejeda MD Jan 22, 2018 08:49
[2018-01-22] MEDS: ARTIFICIAL TEARS OPTH OINT 3.5 APPLIC/3.5 GM TUBO EACH EYE SCH ×2 (09:00→20:48)
[2018-01-22] MEDS: SODIUM CHLORIDE 0.9% FLUSH 10 ML FLUSH IV FLUSH SCH ×3 (09:00→20:46)
[2018-01-22] MEDS: MUPIROCIN 2% OINT 1 APPLIC/GM SYR EACH NARE SCH ×2 (09:25→20:48)
[2018-01-22] MEDS: ASPIRIN 81 MG CHEW TAB CHEW SCH (09:25)
[2018-01-22] MEDS: FAMOTIDINE 20 MG TAB PO SCH ×2 (09:25→20:47)
[2018-01-22] MEDS: METOPROLOL TARTRATE 25 MG TAB PO SCH ×2 (09:25→20:48)
[2018-01-22] MEDS: MULTIVITAMIN TAB PO SCH (09:25)
--- NOTE | 2018-01-22 10:18 | HHI.PR ---
Subjective Remarks Up in the chair. with some secretions. Feels improving. Plan to downgrade trach , resp ff patient says she is not eating much but will try today No much cough. No fever or chills. Less sob. Objective Vitals Vital Signs Date Time Temp Pulse Resp B/P (MAP) Pulse Ox O2 Delivery O2 Flow Rate FiO2 01/22/18 07:59 99 T-piece 28 01/22/18 04:00 T-Piece 28 01/22/18 04:00 98.9 97 20 128/79 (95) 99 01/22/18 03:47 94 01/22/18 00:05 95 01/21/18 23:47 T-Piece 28 01/21/18 23:47 99.0 92 18 115/68 (84) 99 01/21/18 20:36 97 6.00 28 01/21/18 20:00 T-Piece 28 01/21/18 20:00 98.9 104 22 144/76 (98) 98 01/21/18 19:46 116 01/21/18 16:10 96 T-piece 6.00 28 01/21/18 16:10 98.8 87 18 133/81 (98) 98 01/21/18 16:00 82 01/21/18 12:00 105 01/21/18 11:50 99.1 82 20 141/70 (93) 98 I/O 01/21/18 01/21/18 01/21/18 01/22/18 01/22/18 01/22/18 07:00 15:00 23:00 07:00 15:00 23:00 Intake Total 200 ml 730 ml 1300 ml Balance 200 ml 730 ml 1300 ml Intake Oral 200 ml 480 ml 610 ml IV Total 250 ml 250 ml Tube Feeding 240 ml Other 200 ml # Voids 3 3 4 # Bowel Movements 2 2 Result Diagram: 01/22/18 0030 Imaging Last Impressions Chest X-Ray 01/10/18 0600 Signed Impressions: Service Date/Time: January 03:55 - CONCLUSION: No significant change in aeration Demarco Gupta MD Chest CT 01/10/18 0000 Signed Impressions: Service Date/Time: January 17:23 - CONCLUSION: 1. There are areas of dense consolidation in the lung bases. These have significantly improved when compared to the prior exam. 2. Scattered emphysematous blebs within the pulmonary parenchyma. 3. Small area consolidation in the right middle lobe. 4. The emphysematous blebs in the right middle lobe and left lower lobe are new. The overall appearance of the chest is improved when compared to the previous study of 12/16/17. Adam Latif MD Abdomen X-Ray 01/09/18 0000 Signed Impressions: Service Date/Time: Tuesday, January 09, 2018 17:16 - CONCLUSION: No dilated loops of small bowel. Gastrostomy in place. Yomi Lopez MD Abdomen/Pelvis CT 01/04/18 0000 Signed Impressions: Service Date/Time: Friday, January 05, 2018 00:57 - CONCLUSION: Rectal tube in good position. Some asymmetry of the renal nephrograms the left one being slightly delayed of uncertain etiology. Conceivably pyelonephritis would be within the differential on the left based on the patient's symptoms of leukocytosis. Ravinder Krause MD CT Angiography 12/16/17 0000 Signed Impressions: Service Date/Time: Saturday, December 16, 2017 13:49 - CONCLUSION: 1. Negative for pulmonary emboli. 2. Dense consolidation in the lungs especially the lung bases with several cavitary lesions as above. Findings are most characteristic of pneumonia. Cannot exclude septic embolic disease. No significant effusion. Malachi Hardin MD Objective Remarks GENERAL: Patient is a chronically ill patient with trach she appears to not acute distress at this time. HEAD: Normocephalic. NECK: Supple, trachea midline. No lymphadenopathy. Tracheostomy midline. EYES: No scleral icterus. No injection or drainage. CARDIOVASCULAR: Regular rate and rhythm without murmurs, gallops, or rubs. RESPIRATORY: Breath sounds equal bilaterally. No accessory muscle use. GASTROINTESTINAL: Abdomen soft, non-tender, nondistended. MUSCULOSKELETAL: No cyanosis, or edema. SKIN: Warm and dry. NEURO: No focal neurological deficits. Diffuse weakness. Unable to move limbs against gravity. A/P Problem List: (1) Bilateral pneumonia ICD Code: J18.9 - Pneumonia, unspecified organism Status: Acute (2) Sepsis ICD Code: A41.9 - Sepsis, unspecified organism Status: Acute (3) Anxiety ICD Code: F41.9 - Anxiety disorder, unspecified Status: Chronic Assessment and Plan 47-year-old female admitted secondary to sepsis with pneumonia which converted into ARDS. Slow improvements. Advance diet. Right wrist orthesis. Sepsis. resolving Pneumonia, resolving Pulmonary cavitary lesions from MRSA pneumonia, resolving ARDS Acute phase is resolved Healing phase and process Chronic respiratory failure s/p Tracheostomy, pulm. ff will downgrade tache to #6 fenestrated 01/22 There is potential is can improve Continue tracheostomy Speech therapy Continue respiratory care Continue tracheostomy care Pulmonology following Generalized weakness Physical debility Critical Illness Polyneuropathy/critical illness myopathy Functional quadriparesis secondary to above Secondary to prolonged bed rest with prolonged intubation Continue physical therapy Continue occupational therapy Tachycardia Recent Bradycardic Arrest Noted hypotensive BP DC lasix, clonidine Add metroprolol 12.5 mg po bid and hold if SBP< 110 or HR< 60. Monitor closely VS. Cardiology evaluated patient Aspirin Dysphagia Discussed with the dietitian. Jevity 1.5: 120 mls after each meal to supplement PO intake. Jevity 1.5 : 240 mls at night Bolus water 100 ml at 6AM and 6PM Enlive TID, Mighty Shake TID. Add MVT Speech Therapy Hyperglycemia Follow blood sugars Hypothyroidism Likely related to metabolic changes of illness Further work up after patient's physiology normalizes Levothyroxine DVT Prophylaxis SCDs Heparin Discussed with the patient, nurse, PT DC plan : Imprpving some ,. plan to downgrade trach to #6 fenestrated. Also discussed with resp and nurse needs suctioning. Problem Qualifiers (1) Sepsis: Qualified Codes: A41.9 - Sepsis, unspecified organism Cheryle Allen MD Jan 22, 2018 10:18
[2018-01-23] VITALS (13 sets, daily range): BP systolic 114–127; BP diastolic 59–67; PULSE 87–123; RESP 15–20; TEMP 97.7–98.9; O2SAT 95–98
[2018-01-23] MEDS: ALPRAZolam 0.5 MG TAB PO PRN ×2 (04:57→23:08)
[2018-01-23] MEDS: HEPARIN SODIUM - SQ 10,000 UNITS/ML VIAL SQ SCH ×3 (06:06→20:50)
[2018-01-23] MEDS: LEVOTHYROXINE SODIUM 25 MCG TAB PO SCH (06:06)
[2018-01-23] MEDS: METOCLOPRAMIDE HCL 10 MG/2 ML VIAL IV PUSH SCH ×3 (06:10→23:08)
[2018-01-23] MEDS: CHLORHEXIDINE 0.12% (ORAL KIT) 15 ML CUP MT SCH ×2 (07:42→20:00)
[2018-01-23] MEDS: SODIUM CHLORIDE 0.9% FLUSH 10 ML FLUSH IV FLUSH SCH ×3 (07:42→20:51)
[2018-01-23] MEDS: RESP: BUDESONIDE 0.5 MG/2 ML NEB NEB SCH ×2 (08:21→20:00)
[2018-01-23] MEDS: ARTIFICIAL TEARS OPTH OINT 3.5 APPLIC/3.5 GM TUBO EACH EYE SCH ×2 (09:00→20:51)
[2018-01-23] MEDS: MULTIVITAMIN TAB PO SCH (09:41)
[2018-01-23] MEDS: ASPIRIN 81 MG CHEW TAB CHEW SCH (09:41)
[2018-01-23] MEDS: METOPROLOL TARTRATE 25 MG TAB PO SCH ×2 (09:41→20:52)
[2018-01-23] MEDS: FAMOTIDINE 20 MG TAB PO SCH ×2 (09:41→20:52)
[2018-01-23] MEDS: MUPIROCIN 2% OINT 1 APPLIC/GM SYR EACH NARE SCH ×2 (09:41→20:51)
[2018-01-23] MEDS: INSULIN NovoLIN REGULAR SUPPLEMENTAL SCALE SQ SCH ×4 (09:43→20:52)
--- NOTE | 2018-01-23 09:50 | HHI.IDPN ---
Subjective Subjective Remarks Patient is a 47-year-old female, who initially presented to [facility] ED complaining of 4 day history of chest pain and shortness of breath. In have any other history. She was apparently coughing and was bringing up some brownish phlegm. There was no mention of any fever or chills. No nausea or vomiting. No urinary complaints. Chest x-ray showed bilateral patchy basilar infiltrates. CTA did not show any pulmonary embolism, showed bilateral infiltrates with some cavitary lesions noted. She was transferred to the main hospital, and she apparently had some blood in the sputum. She ended up getting intubated. [facility] did bronchoscopy on her. Patient currently sedated postintubation. Her blood pressure is okay and she is not hypotensive. She is tachycardic. Infectious disease consultation has been requested to evaluate the patient with pneumonia Notes reviewed Main issue is her weakness, working with PT and OT Lower extremity weakness - still requires max assist OT notes - noted improvement in BUE Doing well on Tpiece S/P trach and PEG. Temps ok BP ok WBC down to normal CXR stable Antibiotics Vanco IV Current Medications Medications (Trade) Dose Ordered Sig/Marily Route Start Time Stop Time Status Last Admin (NS Flush) 2 ml UNSCH PRN IV FLUSH 12/15/17 22:30 01/22/18 05:38 (NS Flush) 2 ml BID IV FLUSH 12/16/17 09:00 01/23/18 07:42 (Robitussin Dm 200-20 Mg/10 ml Liq) 10 ml Q4H PRN PO 12/15/17 22:30 Future Hold (Heparin Inj) 5,000 units Q8H SQ 12/16/17 12:00 Future hold 01/23/18 06:06 (Morphine Inj) 1 mg Q4H PRN IM 12/16/17 09:15 Future Hold 12/16/17 10:11 (Mucinex Er) 600 mg BID PO 12/16/17 09:15 Future Hold 12/16/17 10:51 (Milk Of Magnesia Liq) 30 ml Q12H PRN PO 12/16/17 16:45 (Senokot) 17.2 mg Q12H PRN PO 12/16/17 16:45 12/28/17 08:39 (Dulcolax Supp) 10 mg DAILY PRN RECTAL 12/16/17 16:45 (Lactulose Liq) 30 ml DAILY PRN PO 12/16/17 16:45 (Peridex 0.12% Liq) 15 ml BID@08,20 MT 12/16/17 20:00 01/23/18 07:42 (Albuterol Neb) 2.5 mg Q2HR NEB PRN NEB 12/21/17 08:30 01/22/18 00:31 (Pulmicort Respule Neb) 0.5 mg Q12HR NEB NEB 12/21/17 20:00 01/23/18 08:21 (NS Flush) DAILY IV FLUSH 12/22/17 09:00 01/20/18 09:41 (NS Flush) UNSCH PRN IV FLUSH 12/21/17 09:15 12/28/17 21:22 (Bactroban Nasal 2% Oint) Taper BID EACH NARE 12/21/17 21:00 12/17/18 20:59 01/23/18 09:41 (Lacrilube Opht Oint) 1 applic Q12HR EACH EYE 12/21/17 10:00 01/23/18 09:00 (Tylenol 650 Mg/ 20 ml Liq) 650 mg Q6H PRN NG 12/21/17 09:30 01/19/18 16:03 (Pill Splitter) 1 ea UNSCH PRN OTHER 12/21/17 21:00 (Aspirin Chew) 81 mg DAILY CHEW 12/22/17 09:00 01/23/18 09:41 (Cathflo Activase Inj) 2 mg Q2H PRN INTRACATH 12/22/17 14:15 12/22/17 14:37 (Synthroid) 25 mcg DAILY@0600 PO 12/23/17 06:00 01/23/18 06:06 (Reglan Inj) 5 mg Q8H PRN IV PUSH 12/24/17 17:45 12/27/17 01:50 Pharmacy Profile Note 0 ml @ 0 mls/hr UNSCH OTHER 12/26/17 14:15 (Brethine Inj) 1 mg UNSCH PRN SQ 12/27/17 08:15 (Reglan Inj) 5 mg Q8H IV PUSH 12/28/17 15:00 01/23/18 06:10 (Xanax) 0.5 mg Q8H PRN PO 12/30/17 11:00 01/23/18 04:57 (Pepcid) 20 mg BID PO 01/01/18 21:00 01/23/18 09:41 (Levemir Inj) 12 units Q12HR SQ 01/02/18 21:00 Future Hold 01/18/18 00:17 Vancomycin HCl 1000 mg/Sodium Chloride 250 ml @ 250 mls/hr Q12H IV 01/09/18 11:00 01/22/18 23:10 (B & O Supp) 60 mg Q12H PRN RECTAL 01/10/18 00:45 01/12/18 10:12 (Lopressor) 25 mg Q8H PRN PO 01/12/18 16:45 (D50w (Vial) Inj) 50 ml UNSCH PRN IV PUSH 01/18/18 09:45 (Glucagon Inj) 1 mg UNSCH PRN OTHER 01/18/18 09:45 (NovoLIN R SUPPLEMENTAL SCALE) 1 ACHS SLIDING SCALE SQ 01/18/18 12:00 01/23/18 09:43 (Lopressor) 12.5 mg Q12HR PO 01/18/18 21:00 01/23/18 09:41 (Theragran) 1 tab DAILY PO 01/22/18 09:00 01/23/18 09:41 Lines PIV Past Medical History Anxiety Past Surgical History Cholecystectomy Hysterectomy Allergies: Coded Allergies: No Known Allergies (Unverified , 12/15/17) Objective . Vital Signs Date Time Temp Pulse Resp B/P (MAP) Pulse Ox O2 Delivery O2 Flow Rate FiO2 01/23/18 08:25 96 T-piece 28 01/23/18 04:00 97.7 95 20 114/59 (77) 97 01/23/18 04:00 108 01/23/18 00:47 96 01/23/18 00:00 T-Piece 5.00 28 01/23/18 00:00 98.5 87 20 127/60 (82) 98 01/22/18 20:00 98.8 93 20 123/71 (88) 97 01/22/18 20:00 T-Piece 5.00 28 01/22/18 20:00 99 01/22/18 17:48 94 T-piece 6.00 28 01/22/18 16:00 88 01/22/18 16:00 98.5 95 15 140/78 (98) 97 01/22/18 12:04 115 01/22/18 12:00 98.6 95 16 118/70 (86) 98 . Laboratory Tests Test 01/22/18 00:30 Creatinine 0.45 MG/DL Estimat Glomerular Filtration Rate 150 ML/MIN Imaging Abdomen/Pelvis CT 01/04/18 0000 Signed Impressions: Service Date/Time: Friday, January 05, 2018 00:57 - CONCLUSION: Rectal tube in good position. Some asymmetry of the renal nephrograms the left one being slightly delayed of uncertain etiology. Conceivably pyelonephritis would be within the differential on the left based on the patient's symptoms of leukocytosis. Ravinder Krause MD Chest X-Ray 01/02/18599 Signed Impressions: Service Date/Time: Tuesday, January 02, 2018 03:45 - CONCLUSION: 1. Residual patchy densities right upper lobe and left lower lobe. Miguel Lynne MD CT Angiography 12/16/17 0000 Signed Impressions: Service Date/Time: Saturday, December 16, 2017 13:49 - CONCLUSION: 1. Negative for pulmonary emboli. 2. Dense consolidation in the lungs especially the lung bases with several cavitary lesions as above. Findings are most characteristic of pneumonia. Cannot exclude septic embolic disease. No significant effusion. Malachi Hardin MD Chest X-Ray 01/02/18 06 Signed Impressions: Service Date/Time: Tuesday, January 02, 2018 03:45 - CONCLUSION: 1. Residual patchy densities right upper lobe and left lower lobe. Miguel Lynne MD Chest X-Ray 01/01/18 06 Signed Impressions: Service Date/Time: Monday, January 01, 2018 02:48 - CONCLUSION: Improved aeration of the right lung with minimal bibasilar densities. Miguel Lynne MD Physical Exam GENERAL: Awake and following commands, NAD. SKIN: Warm and dry. No rash EYES: non icteric ENT: moist mucosae, no thrush NECK: Tracheostomy site ok CARDIOVASCULAR: HS audible. RESPIRATORY: Coarse BS dominga. Decreased at bases. ABDOMEN: soft , not tender, not distended BS+. PEG tube site ok. EXTREMITIES: Improving edema : clear yellow urine NEUROLOGICAL: Awake, responding. All extremities very weak PSYCHIATRIC: Awake, and cooperative LINE: No evidence of infection Assessment & Plan Remarks IMPRESSION Sepsis present, high grade, on admission, has MRSA on blood cultures - S/P arrest - last (+) BC 12/18 Bilateral pneumonia, some with cavitation, last CT did not show any cavitation - C/S with MRSA - CXR improving; CT improving Very worrisome for endocarditis - clinically , but JEANINE negative Respiratory failure. - S/P trach - CXR improving Leukocytosis, resolved Diarrhea, C diff negative x 2 RECOMMENDATION Continue IV Vanco - anticipate 6 weeks from last (+) BC - anticipated end date 01/28 Labs weekly: CBC, creat, Vanco trough Pharm doing Vanco dosing Monitor progress Clinically stable from ID standpoint Liliam Su MD Jan 23, 2018 09:50
[2018-01-23] MEDS: VANCOMYCIN 1,000 MG/NS 250 ML IV SCH ×4 (11:44→23:08)
--- NOTE | 2018-01-23 16:09 | HHI.PR ---
Subjective Remarks alert no distress on T Bar Objective Vital Signs Date Time Temp Pulse Resp B/P (MAP) Pulse Ox O2 Delivery O2 Flow Rate FiO2 01/23/18 08:25 96 T-piece 28 01/23/18 08:15 98.9 101 17 123/62 (82) 95 01/23/18 04:00 97.7 95 20 114/59 (77) 97 01/23/18 04:00 108 01/23/18 00:47 96 01/23/18 00:00 T-Piece 5.00 28 01/23/18 00:00 98.5 87 20 127/60 (82) 98 01/22/18 20:00 98.8 93 20 123/71 (88) 97 01/22/18 20:00 T-Piece 5.00 28 01/22/18 20:00 99 01/22/18 17:48 94 T-piece 6.00 28 I/O 01/22/18 01/22/18 01/22/18 01/23/18 01/23/18 01/23/18 07:00 15:00 23:00 07:00 15:00 23:00 Intake Total 1300 ml 650 ml 470 ml Balance 1300 ml 650 ml 470 ml Intake Oral 610 ml 400 ml 220 ml IV Total 250 ml 250 ml 250 ml Tube Feeding 240 ml Other 200 ml # Voids 4 1 4 # Bowel Movements 2 1 1 Result Diagram: 01/22/18 0030 Procedures BiPAP Objective Remarks GENERAL: sedated on vent support SKIN: Warm and dry. HEAD: Atraumatic. Normocephalic. EYES: Pupils equal and round. No scleral icterus. No injection or drainage. ENT: No nasal bleeding or discharge. Mucous membranes pink and moist. NECK: Trachea midline. No JVD. CARDIOVASCULAR: Regular rate and rhythm. RESPIRATORY: No accessory muscle use. Clear to auscultation. Breath sounds equal bilaterally. GASTROINTESTINAL: Abdomen soft, non-tender, nondistended. Hepatic and splenic margins not palpable. MUSCULOSKELETAL: Extremities without clubbing, cyanosis, or edema. No obvious deformities. NEUROLOGICAL: Awake and alert. No obvious cranial nerve deficits. Motor grossly within normal limits. Five out of 5 muscle strength in the arms and legs. Normal speech. PSYCHIATRIC: Appropriate mood and affect; insight and judgment normal. Assessment and Plan Assessment and Plan imp: ALERT, TRACHEOSTOMY IN PLACE respiratory failure/ plan O2 as needed pulm toilet PT CAP TRACH AND REMOVE WHEN POSSIBLE Ileana Tejeda MD Jan 23, 2018 16:09
--- NOTE | 2018-01-23 19:10 | HHI.PR ---
Subjective Remarks The patient is in bed since she feels improved. Treat with downgraded to #6 yesterday. Still with some shortness of breath. Eating better. No nausea vomiting or constipation. Feels weak. Objective Vitals Vital Signs Date Time Temp Pulse Resp B/P (MAP) Pulse Ox O2 Delivery O2 Flow Rate FiO2 01/23/18 12:15 98.6 88 17 118/60 (79) 97 01/23/18 08:25 96 T-piece 28 01/23/18 08:15 98.9 101 17 123/62 (82) 95 01/23/18 04:00 97.7 95 20 114/59 (77) 97 01/23/18 04:00 108 01/23/18 00:47 96 01/23/18 00:00 T-Piece 5.00 28 01/23/18 00:00 98.5 87 20 127/60 (82) 98 01/22/18 20:00 98.8 93 20 123/71 (88) 97 01/22/18 20:00 T-Piece 5.00 28 01/22/18 20:00 99 I/O 01/22/18 01/22/18 01/22/18 01/23/18 01/23/18 01/23/18 07:00 15:00 23:00 07:00 15:00 23:00 Intake Total 1300 ml 650 ml 470 ml Balance 1300 ml 650 ml 470 ml Intake Oral 610 ml 400 ml 220 ml IV Total 250 ml 250 ml 250 ml Tube Feeding 240 ml Other 200 ml # Voids 4 1 4 # Bowel Movements 2 1 1 Result Diagram: 01/22/18 0030 Imaging Last Impressions Chest X-Ray 01/10/18 0600 Signed Impressions: Service Date/Time: January 03:55 - CONCLUSION: No significant change in aeration Demarco Gupta MD Chest CT 01/10/18 0000 Signed Impressions: Service Date/Time: January 17:23 - CONCLUSION: 1. There are areas of dense consolidation in the lung bases. These have significantly improved when compared to the prior exam. 2. Scattered emphysematous blebs within the pulmonary parenchyma. 3. Small area consolidation in the right middle lobe. 4. The emphysematous blebs in the right middle lobe and left lower lobe are new. The overall appearance of the chest is improved when compared to the previous study of 12/16/17. Adam Latif MD Abdomen X-Ray 01/09/18 0000 Signed Impressions: Service Date/Time: Tuesday, January 09, 2018 17:16 - CONCLUSION: No dilated loops of small bowel. Gastrostomy in place. Yomi Lopez MD Abdomen/Pelvis CT 01/04/18 0000 Signed Impressions: Service Date/Time: Friday, January 05, 2018 00:57 - CONCLUSION: Rectal tube in good position. Some asymmetry of the renal nephrograms the left one being slightly delayed of uncertain etiology. Conceivably pyelonephritis would be within the differential on the left based on the patient's symptoms of leukocytosis. Ravinder Krause MD CT Angiography 12/16/17 0000 Signed Impressions: Service Date/Time: Saturday, December 16, 2017 13:49 - CONCLUSION: 1. Negative for pulmonary emboli. 2. Dense consolidation in the lungs especially the lung bases with several cavitary lesions as above. Findings are most characteristic of pneumonia. Cannot exclude septic embolic disease. No significant effusion. Malachi Hardin MD Objective Remarks GENERAL: Patient is a chronically ill patient with trach she appears to not acute distress at this time. HEAD: Normocephalic. NECK: Supple, trachea midline. No lymphadenopathy. Tracheostomy midline. EYES: No scleral icterus. No injection or drainage. CARDIOVASCULAR: Regular rate and rhythm without murmurs, gallops, or rubs. RESPIRATORY: Breath sounds equal bilaterally. No accessory muscle use. GASTROINTESTINAL: Abdomen soft, non-tender, nondistended. MUSCULOSKELETAL: No cyanosis, or edema. SKIN: Warm and dry. NEURO: No focal neurological deficits. Diffuse weakness. Unable to move limbs against gravity. A/P Problem List: (1) Bilateral pneumonia ICD Code: J18.9 - Pneumonia, unspecified organism Status: Acute (2) Sepsis ICD Code: A41.9 - Sepsis, unspecified organism Status: Acute (3) Anxiety ICD Code: F41.9 - Anxiety disorder, unspecified Status: Chronic Assessment and Plan 47-year-old female admitted secondary to sepsis with pneumonia which converted into ARDS. Slow improvements. Advance diet. Right wrist orthesis. Sepsis. resolving Pneumonia, resolving Pulmonary cavitary lesions from MRSA pneumonia, resolving ARDS Acute phase is resolved Healing phase and process Chronic respiratory failure s/p Tracheostomy, pulm. ff will downgrade tache to #6 fenestrated 01/22 There is potential is can improve Continue tracheostomy Speech therapy Continue respiratory care Continue tracheostomy care Pulmonology following Generalized weakness Physical debility Critical Illness Polyneuropathy/critical illness myopathy Functional quadriparesis secondary to above Secondary to prolonged bed rest with prolonged intubation Continue physical therapy Continue occupational therapy Tachycardia Recent Bradycardic Arrest Noted hypotensive BP DC lasix, clonidine Add metroprolol 12.5 mg po bid and hold if SBP< 110 or HR< 60. Monitor closely VS. Cardiology evaluated patient Aspirin Dysphagia Discussed with the dietitian. Jevity 1.5: 120 mls after each meal to supplement PO intake. Jevity 1.5 : 240 mls at night Bolus water 100 ml at 6AM and 6PM Enlive TID, Mighty Shake TID. Add MVT Speech Therapy Hyperglycemia Follow blood sugars Hypothyroidism Likely related to metabolic changes of illness Further work up after patient's physiology normalizes Levothyroxine DVT Prophylaxis SCDs Heparin Discussed with the patient, nurse, PT DC plan : Improving some, downgrade trach to #6 fenestrated. Discharge when trach is out. Patient without insurance and can't go to any facility Problem Qualifiers (1) Sepsis: Qualified Codes: A41.9 - Sepsis, unspecified organism Cheryle Allen MD Jan 23, 2018 19:10
[2018-01-24] VITALS (13 sets, daily range): BP systolic 118–146; BP diastolic 57–83; PULSE 81–122; RESP 18–20; TEMP 97.6–98.2; O2SAT 97–99
[2018-01-24] MEDS: HEPARIN SODIUM - SQ 10,000 UNITS/ML VIAL SQ SCH ×3 (03:38→20:27)
[2018-01-24] MEDS: LEVOTHYROXINE SODIUM 25 MCG TAB PO SCH (05:09)
[2018-01-24] MEDS: METOCLOPRAMIDE HCL 10 MG/2 ML VIAL IV PUSH SCH ×3 (05:25→23:07)
[2018-01-24] MEDS: RESP: BUDESONIDE 0.5 MG/2 ML NEB NEB SCH ×2 (08:00→19:18)
[2018-01-24] MEDS: INSULIN NovoLIN REGULAR SUPPLEMENTAL SCALE SQ SCH ×4 (08:00→20:27)
[2018-01-24] MEDS: CHLORHEXIDINE 0.12% (ORAL KIT) 15 ML CUP MT SCH ×2 (08:00→20:00)
[2018-01-24 09:24] LABS: AUTOMATED NEUTROPHIL # 6.5 TH/MM3 (1.8-7.7); BASOPHIL # 0.1 TH/MM3 (0-0.2); BASOPHIL % 0.9 % (0.0-2.0); EOSINOPHIL # 0.2 TH/MM3 (0-0.4); EOSINOPHIL % 2.2 % (0.0-4.0); HEMATOCRIT 33.2 % (35.0-46.0); HEMOGLOBIN 11.3 GM/DL (11.6-15.3); LYMPH % 15.1 % (9.0-44.0); LYMPHOCYTE # 1.3 TH/MM3 (1.0-4.8); MEAN CELL VOLUME 86.7 FL (80.0-100.0); MEAN CORPUSCULAR HEMOGLOBIN 29.6 PG (27.0-34.0); MEAN CORPUSCULAR HGB CONC 34.2 % (32.0-36.0); MEAN PLATELET VOLUME 7.9 FL (7.0-11.0); MONO % 8.5 % (0.0-8.0); MONOCYTE # 0.8 TH/MM3 (0-0.9); NEUT % 73.3 % (16.0-70.0); PLATELET COUNT 421 TH/MM3 (150-450); RED BLOOD COUNT 3.83 MIL/MM3 (4.00-5.30); RED CELL DISTRIBUTION WIDTH 14.4 % (11.6-17.2); WHITE BLOOD COUNT 8.9 TH/MM3 (4.0-11.0)
[2018-01-24] MEDS: ASPIRIN 81 MG CHEW TAB CHEW SCH (09:35)
[2018-01-24] MEDS: SODIUM CHLORIDE 0.9% FLUSH 10 ML FLUSH IV FLUSH SCH ×3 (09:35→20:27)
[2018-01-24] MEDS: MUPIROCIN 2% OINT 1 APPLIC/GM SYR EACH NARE SCH ×2 (09:35→20:15)
[2018-01-24] MEDS: ARTIFICIAL TEARS OPTH OINT 3.5 APPLIC/3.5 GM TUBO EACH EYE SCH ×2 (09:36→20:27)
[2018-01-24] MEDS: FAMOTIDINE 20 MG TAB PO SCH ×2 (09:36→20:26)
[2018-01-24] MEDS: MULTIVITAMIN TAB PO SCH (09:36)
[2018-01-24] MEDS: METOPROLOL TARTRATE 25 MG TAB PO SCH ×2 (09:36→20:26)
[2018-01-24 09:55] LABS: CREATININE 0.35 MG/DL (0.50-1.00)
--- NOTE | 2018-01-24 11:44 | HHI.PR ---
Subjective Remarks Patient is in bed she does not appear to be in acute distress at this time. No fever or chills. Says she is eating fairly well. she feels very weak. Plan to have PT daily Objective Vitals Vital Signs Date Time Temp Pulse Resp B/P (MAP) Pulse Ox O2 Delivery O2 Flow Rate FiO2 01/24/18 08:04 98 Nasal Cannula 1.00 01/24/18 08:00 3.00 01/24/18 08:00 96 01/24/18 07:40 97.7 102 18 121/83 (96) 98 01/24/18 04:00 Nasal Cannula 2.00 01/24/18 04:00 97.6 104 19 146/65 (92) 97 01/24/18 04:00 81 01/24/18 00:20 97 Nasal Cannula 3.00 01/24/18 00:00 91 01/24/18 00:00 98.0 96 20 122/58 (79) 99 01/24/18 00:00 Nasal Cannula 3.00 01/23/18 21:52 98.8 103 15 117/67 (84) 98 01/23/18 21:01 96 Nasal Cannula 3.00 01/23/18 20:00 123 01/23/18 20:00 Nasal Cannula 3.00 T-Piece 01/23/18 16:15 98.6 88 17 120/60 (80) 96 01/23/18 16:00 107 01/23/18 12:16 100 01/23/18 12:15 98.6 88 17 118/60 (79) 97 I/O 01/23/18 01/23/18 01/23/18 01/24/18 01/24/18 01/24/18 07:00 15:00 23:00 07:00 15:00 23:00 Intake Total 470 ml 380 ml 250 ml Balance 470 ml 380 ml 250 ml Intake Oral 220 ml 380 ml 0 ml IV Total 250 ml 250 ml # Voids 4 5 2 # Bowel Movements 1 2 0 Result Diagram: 01/24/18 0730 01/24/18 0730 Imaging Last Impressions Chest X-Ray 01/10/18 0600 Signed Impressions: Service Date/Time: January 03:55 - CONCLUSION: No significant change in aeration Demarco Gupta MD Chest CT 01/10/18 0000 Signed Impressions: Service Date/Time: January 17:23 - CONCLUSION: 1. There are areas of dense consolidation in the lung bases. These have significantly improved when compared to the prior exam. 2. Scattered emphysematous blebs within the pulmonary parenchyma. 3. Small area consolidation in the right middle lobe. 4. The emphysematous blebs in the right middle lobe and left lower lobe are new. The overall appearance of the chest is improved when compared to the previous study of 12/16/17. Adam Latif MD Abdomen X-Ray 01/09/18 0000 Signed Impressions: Service Date/Time: Tuesday, January 09, 2018 17:16 - CONCLUSION: No dilated loops of small bowel. Gastrostomy in place. Yomi Lopez MD Abdomen/Pelvis CT 01/04/18 0000 Signed Impressions: Service Date/Time: Friday, January 05, 2018 00:57 - CONCLUSION: Rectal tube in good position. Some asymmetry of the renal nephrograms the left one being slightly delayed of uncertain etiology. Conceivably pyelonephritis would be within the differential on the left based on the patient's symptoms of leukocytosis. Ravinder Krause MD CT Angiography 12/16/17 0000 Signed Impressions: Service Date/Time: Saturday, December 16, 2017 13:49 - CONCLUSION: 1. Negative for pulmonary emboli. 2. Dense consolidation in the lungs especially the lung bases with several cavitary lesions as above. Findings are most characteristic of pneumonia. Cannot exclude septic embolic disease. No significant effusion. Malachi Hardin MD Objective Remarks GENERAL: Patient is a chronically ill patient with trach she appears to not acute distress at this time. HEAD: Normocephalic. NECK: Supple, trachea midline. No lymphadenopathy. Tracheostomy midline. EYES: No scleral icterus. No injection or drainage. CARDIOVASCULAR: Regular rate and rhythm without murmurs, gallops, or rubs. RESPIRATORY: Breath sounds equal bilaterally. No accessory muscle use. GASTROINTESTINAL: Abdomen soft, non-tender, nondistended. MUSCULOSKELETAL: No cyanosis, or edema. SKIN: Warm and dry. NEURO: No focal neurological deficits. Diffuse weakness. Unable to move limbs against gravity. A/P Problem List: (1) Bilateral pneumonia ICD Code: J18.9 - Pneumonia, unspecified organism Status: Acute (2) Sepsis ICD Code: A41.9 - Sepsis, unspecified organism Status: Acute (3) Anxiety ICD Code: F41.9 - Anxiety disorder, unspecified Status: Chronic Assessment and Plan 47-year-old female admitted secondary to sepsis with pneumonia which converted into ARDS. Slow improvements. Advance diet. Right wrist orthesis. Sepsis. resolving Pneumonia, resolving Pulmonary cavitary lesions from MRSA pneumonia, resolving ARDS Acute phase is resolved Healing phase and process Chronic respiratory failure s/p Tracheostomy, pulm. ff will downgrade tache to #6 fenestrated 01/22 There is potential is can improve Continue tracheostomy Speech therapy Continue respiratory care Continue tracheostomy care Pulmonology following Generalized weakness Physical debility Critical Illness Polyneuropathy/critical illness myopathy Functional quadriparesis secondary to above Secondary to prolonged bed rest with prolonged intubation Continue physical therapy Continue occupational therapy Tachycardia Recent Bradycardic Arrest Noted hypotensive BP DC lasix, clonidine Add metroprolol 12.5 mg po bid and hold if SBP< 110 or HR< 60. Monitor closely VS. Cardiology evaluated patient Aspirin Dysphagia Discussed with the dietitian. Jevity 1.5: 120 mls after each meal to supplement PO intake. Jevity 1.5 : 240 mls at night Bolus water 100 ml at 6AM and 6PM Enlive TID, Mighty Shake TID. Add MVT Speech Therapy Hyperglycemia Follow blood sugars Hypothyroidism Likely related to metabolic changes of illness Further work up after patient's physiology normalizes Levothyroxine DVT Prophylaxis SCDs Heparin Discussed with the patient, nurse, PT DC plan : Improving some, downgrade trach to #6 fenestrated. Discharge when trach is out and able to walk. Patient without insurance and can't go to any facility PT daily until improved Problem Qualifiers (1) Sepsis: Qualified Codes: A41.9 - Sepsis, unspecified organism Cheryle Allen MD Jan 24, 2018 11:44
[2018-01-24] MEDS: VANCOMYCIN 1,000 MG/NS 250 ML IV SCH ×4 (12:14→23:07)
--- NOTE | 2018-01-24 16:18 | HHI.PR ---
Subjective Remarks alert no distress TRACH CAPPED 24 HRS Objective Vital Signs Date Time Temp Pulse Resp B/P (MAP) Pulse Ox O2 Delivery O2 Flow Rate FiO2 01/24/18 12:20 97.9 92 18 118/63 (81) 97 01/24/18 08:04 98 Nasal Cannula 1.00 01/24/18 08:00 3.00 01/24/18 08:00 96 01/24/18 07:40 97.7 102 18 121/83 (96) 98 01/24/18 04:00 Nasal Cannula 2.00 01/24/18 04:00 97.6 104 19 146/65 (92) 97 01/24/18 04:00 81 01/24/18 00:20 97 Nasal Cannula 3.00 01/24/18 00:00 91 01/24/18 00:00 98.0 96 20 122/58 (79) 99 01/24/18 00:00 Nasal Cannula 3.00 01/23/18 21:52 98.8 103 15 117/67 (84) 98 01/23/18 21:01 96 Nasal Cannula 3.00 01/23/18 20:00 123 01/23/18 20:00 Nasal Cannula 3.00 T-Piece I/O 01/23/18 01/23/18 01/23/18 01/24/18 01/24/18 01/24/18 07:00 15:00 23:00 07:00 15:00 23:00 Intake Total 470 ml 380 ml 250 ml Balance 470 ml 380 ml 250 ml Intake Oral 220 ml 380 ml 0 ml IV Total 250 ml 250 ml # Voids 4 5 2 # Bowel Movements 1 2 0 Result Diagram: 01/24/18 0730 01/24/18 0730 Procedures BiPAP Objective Remarks GENERAL: sedated on vent support SKIN: Warm and dry. HEAD: Atraumatic. Normocephalic. EYES: Pupils equal and round. No scleral icterus. No injection or drainage. ENT: No nasal bleeding or discharge. Mucous membranes pink and moist. NECK: Trachea midline. No JVD. CARDIOVASCULAR: Regular rate and rhythm. RESPIRATORY: No accessory muscle use. Clear to auscultation. Breath sounds equal bilaterally. GASTROINTESTINAL: Abdomen soft, non-tender, nondistended. Hepatic and splenic margins not palpable. MUSCULOSKELETAL: Extremities without clubbing, cyanosis, or edema. No obvious deformities. NEUROLOGICAL: Awake and alert. No obvious cranial nerve deficits. Motor grossly within normal limits. Five out of 5 muscle strength in the arms and legs. Normal speech. PSYCHIATRIC: Appropriate mood and affect; insight and judgment normal. Assessment and Plan Assessment and Plan imp: ALERT, TRACHEOSTOMY IN PLACE respiratory failure/ plan O2 as needed pulm toilet PT REMOVE TRACH Ileana Tejeda MD Jan 24, 2018 16:18
[2018-01-24] MEDS: ALPRAZolam 0.5 MG TAB PO PRN (23:07)
[2018-01-25] VITALS (10 sets, daily range): BP systolic 117–144; BP diastolic 56–78; PULSE 82–134; RESP 17–20; TEMP 97.8–98.6; O2SAT 96–99
[2018-01-25] MEDS: LEVOTHYROXINE SODIUM 25 MCG TAB PO SCH (06:33)
[2018-01-25] MEDS: METOCLOPRAMIDE HCL 10 MG/2 ML VIAL IV PUSH SCH ×3 (06:33→23:36)
[2018-01-25] MEDS: HEPARIN SODIUM - SQ 10,000 UNITS/ML VIAL SQ SCH ×3 (06:33→21:57)
[2018-01-25] MEDS: CHLORHEXIDINE 0.12% (ORAL KIT) 15 ML CUP MT SCH ×2 (07:52→20:00)
[2018-01-25] MEDS: INSULIN NovoLIN REGULAR SUPPLEMENTAL SCALE SQ SCH ×4 (07:52→21:00)
[2018-01-25] MEDS: METOPROLOL TARTRATE 25 MG TAB PO SCH ×2 (07:54→21:58)
[2018-01-25] MEDS: ASPIRIN 81 MG CHEW TAB CHEW SCH (07:54)
[2018-01-25] MEDS: FAMOTIDINE 20 MG TAB PO SCH ×2 (07:54→21:57)
[2018-01-25] MEDS: MULTIVITAMIN TAB PO SCH (07:54)
[2018-01-25] MEDS: SODIUM CHLORIDE 0.9% FLUSH 10 ML FLUSH IV FLUSH SCH ×3 (07:55→21:57)
[2018-01-25] MEDS: RESP: BUDESONIDE 0.5 MG/2 ML NEB NEB SCH ×2 (08:21→20:22)
[2018-01-25] MEDS: ARTIFICIAL TEARS OPTH OINT 3.5 APPLIC/3.5 GM TUBO EACH EYE SCH ×2 (08:26→21:00)
[2018-01-25] MEDS: MUPIROCIN 2% OINT 1 APPLIC/GM SYR EACH NARE SCH ×2 (08:26→21:00)
--- NOTE | 2018-01-25 10:31 | HHI.PR ---
Subjective Remarks alert no distress doing well post tracheostomy removal Objective Vital Signs Date Time Temp Pulse Resp B/P (MAP) Pulse Ox O2 Delivery O2 Flow Rate FiO2 01/25/18 08:24 Nasal Cannula 1.00 01/25/18 08:00 Nasal Cannula 1.00 01/25/18 08:00 100 01/25/18 07:45 98.2 101 18 123/56 (78) 96 01/25/18 04:00 98.0 91 18 119/56 (77) 97 01/25/18 04:00 102 01/25/18 00:05 82 01/25/18 00:00 97.8 94 19 117/58 (77) 99 01/24/18 20:10 115 01/24/18 20:00 98.2 01/24/18 20:00 Nasal Cannula 3.00 01/24/18 20:00 98.2 118 18 118/70 (86) 97 01/24/18 19:18 97 Nasal Cannula 1.00 01/24/18 16:00 122 01/24/18 15:50 97.9 117 18 130/57 (81) 97 01/24/18 12:20 97.9 92 18 118/63 (81) 97 01/24/18 12:00 93 I/O 01/24/18 01/24/18 01/24/18 01/25/18 01/25/18 01/25/18 07:00 15:00 23:00 07:00 15:00 23:00 Intake Total 250 ml 840 ml 0 ml Balance 250 ml 840 ml 0 ml Intake Oral 0 ml 840 ml 0 ml IV Total 250 ml # Voids 2 1 3 # Bowel Movements 0 1 1 Result Diagram: 01/24/18 0730 01/24/18 0730 Procedures BiPAP Objective Remarks GENERAL: sedated on vent support SKIN: Warm and dry. HEAD: Atraumatic. Normocephalic. EYES: Pupils equal and round. No scleral icterus. No injection or drainage. ENT: No nasal bleeding or discharge. Mucous membranes pink and moist. NECK: Trachea midline. No JVD. CARDIOVASCULAR: Regular rate and rhythm. RESPIRATORY: No accessory muscle use. Clear to auscultation. Breath sounds equal bilaterally. GASTROINTESTINAL: Abdomen soft, non-tender, nondistended. Hepatic and splenic margins not palpable. MUSCULOSKELETAL: Extremities without clubbing, cyanosis, or edema. No obvious deformities. NEUROLOGICAL: Awake and alert. No obvious cranial nerve deficits. Motor grossly within normal limits. Five out of 5 muscle strength in the arms and legs. Normal speech. PSYCHIATRIC: Appropriate mood and affect; insight and judgment normal. Assessment and Plan Assessment and Plan imp: ALERT, stable post trach removal plan O2 as needed pulm toilet PT Ileana Tejeda MD Jan 25, 2018 10:31
[2018-01-25] MEDS: VANCOMYCIN 1,000 MG/NS 250 ML IV SCH ×4 (11:53→23:36)
--- NOTE | 2018-01-25 15:09 | HHI.PR ---
Subjective Remarks Patient was today. Tracheostomy was removed. Doing well. Satting well no much cough. Says she is eating better and she wants the PEG tube removed. Will consult dietitian for calorie counting Objective Vitals Vital Signs Date Time Temp Pulse Resp B/P (MAP) Pulse Ox O2 Delivery O2 Flow Rate FiO2 01/25/18 12:00 98.0 116 18 125/58 (80) 97 01/25/18 08:24 Nasal Cannula 1.00 01/25/18 08:00 Nasal Cannula 1.00 01/25/18 08:00 100 01/25/18 07:45 98.2 101 18 123/56 (78) 96 01/25/18 04:00 98.0 91 18 119/56 (77) 97 01/25/18 04:00 102 01/25/18 00:05 82 01/25/18 00:00 97.8 94 19 117/58 (77) 99 01/24/18 20:10 115 01/24/18 20:00 98.2 01/24/18 20:00 Nasal Cannula 3.00 01/24/18 20:00 98.2 118 18 118/70 (86) 97 01/24/18 19:18 97 Nasal Cannula 1.00 01/24/18 16:00 122 01/24/18 15:50 97.9 117 18 130/57 (81) 97 I/O 01/24/18 01/24/18 01/24/18 01/25/18 01/25/18 01/25/18 07:00 15:00 23:00 07:00 15:00 23:00 Intake Total 250 ml 840 ml 0 ml Balance 250 ml 840 ml 0 ml Intake Oral 0 ml 840 ml 0 ml IV Total 250 ml # Voids 2 1 3 # Bowel Movements 0 1 1 Result Diagram: 01/24/18 0730 01/24/18 0730 Imaging Last Impressions Chest X-Ray 01/10/18 0600 Signed Impressions: Service Date/Time: January 03:55 - CONCLUSION: No significant change in aeration Demaroc Gupta MD Chest CT 01/10/18 0000 Signed Impressions: Service Date/Time: January 17:23 - CONCLUSION: 1. There are areas of dense consolidation in the lung bases. These have significantly improved when compared to the prior exam. 2. Scattered emphysematous blebs within the pulmonary parenchyma. 3. Small area consolidation in the right middle lobe. 4. The emphysematous blebs in the right middle lobe and left lower lobe are new. The overall appearance of the chest is improved when compared to the previous study of 12/16/17. Adam Latif MD Abdomen X-Ray 01/09/18 0000 Signed Impressions: Service Date/Time: Tuesday, January 09, 2018 17:16 - CONCLUSION: No dilated loops of small bowel. Gastrostomy in place. Yomi Lopez MD Abdomen/Pelvis CT 01/04/18 0000 Signed Impressions: Service Date/Time: Friday, January 05, 2018 00:57 - CONCLUSION: Rectal tube in good position. Some asymmetry of the renal nephrograms the left one being slightly delayed of uncertain etiology. Conceivably pyelonephritis would be within the differential on the left based on the patient's symptoms of leukocytosis. Ravinder Krause MD CT Angiography 12/16/17 0000 Signed Impressions: Service Date/Time: Saturday, December 16, 2017 13:49 - CONCLUSION: 1. Negative for pulmonary emboli. 2. Dense consolidation in the lungs especially the lung bases with several cavitary lesions as above. Findings are most characteristic of pneumonia. Cannot exclude septic embolic disease. No significant effusion. Malachi Hardin MD Objective Remarks GENERAL: Patient is a chronically ill patient, she doesn't appears in acute distress at this time. HEAD: Normocephalic. NECK: Supple, trachea midline. No lymphadenopathy. Tracheostomy removed, dressing CDI. EYES: No scleral icterus. No injection or drainage. CARDIOVASCULAR: Regular rate and rhythm without murmurs, gallops, or rubs. RESPIRATORY: Breath sounds equal bilaterally. No accessory muscle use. GASTROINTESTINAL: Abdomen soft, non-tender, nondistended. MUSCULOSKELETAL: No cyanosis, or edema. SKIN: Warm and dry. NEURO: No focal neurological deficits. Diffuse weakness. Unable to move limbs against gravity. A/P Problem List: (1) Bilateral pneumonia ICD Code: J18.9 - Pneumonia, unspecified organism Status: Acute (2) Sepsis ICD Code: A41.9 - Sepsis, unspecified organism Status: Acute (3) Anxiety ICD Code: F41.9 - Anxiety disorder, unspecified Status: Chronic Assessment and Plan 47-year-old female admitted secondary to sepsis with pneumonia which converted into ARDS. Slow improvements. Advance diet. Right wrist orthesis. Sepsis. resolving Pneumonia, resolving Pulmonary cavitary lesions from MRSA pneumonia, resolving ARDS Acute phase is resolved Healing phase and process Chronic respiratory failure s/p Tracheostomy, pulm. ff will downgrade tache to #6 fenestrated 01/22 and trach was removed 01/24/18 , currently on NC There is potential is can improve Continue tracheostomy Speech therapy Continue respiratory care Continue tracheostomy care Pulmonology following Generalized weakness Physical debility Critical Illness Polyneuropathy/critical illness myopathy Functional quadriparesis secondary to above Secondary to prolonged bed rest with prolonged intubation Continue physical therapy Continue occupational therapy Tachycardia Recent Bradycardic Arrest Noted hypotensive BP DC lasix, clonidine Add metroprolol 12.5 mg po bid and hold if SBP< 110 or HR< 60. Monitor closely VS. Cardiology evaluated patient Aspirin Dysphagia Discussed with the dietitian. Jevity 1.5: 120 mls after each meal to supplement PO intake. Jevity 1.5 : 240 mls at night Bolus water 100 ml at 6AM and 6PM Enlive TID, Mighty Shake TID. Add MVT Speech Therapy Hyperglycemia Follow blood sugars Hypothyroidism Likely related to metabolic changes of illness Further work up after patient's physiology normalizes Levothyroxine DVT Prophylaxis SCDs Heparin Discussed with the patient, nurse, PT DC plan : Improving some, downgrade trach to #6 fenestrated , trach removed currently on NC , wean off O2 as tolerated Patient doesn't have insurance PT daily until improved as patient with weakness and unable to ambulate. Also repeat lytes. Patient is eatign better PO and wants the feeding tube removed. Consult video tape duplicator for calorie count Problem Qualifiers (1) Sepsis: Qualified Codes: A41.9 - Sepsis, unspecified organism Cheryle Allen MD Jan 25, 2018 15:09
[2018-01-25] MEDS: ALPRAZolam 0.5 MG TAB PO PRN (23:35)
[2018-01-26] VITALS (7 sets, daily range): BP systolic 117–142; BP diastolic 58–76; PULSE 89–112; RESP 16–20; TEMP 97.7–98.7; O2SAT 96–99
[2018-01-26] MEDS: LEVOTHYROXINE SODIUM 25 MCG TAB PO SCH (05:37)
[2018-01-26] MEDS: METOCLOPRAMIDE HCL 10 MG/2 ML VIAL IV PUSH SCH ×3 (05:37→22:44)
[2018-01-26] MEDS: HEPARIN SODIUM - SQ 10,000 UNITS/ML VIAL SQ SCH ×3 (05:38→21:36)
[2018-01-26] MEDS: RESP: BUDESONIDE 0.5 MG/2 ML NEB NEB SCH ×2 (07:55→20:26)
[2018-01-26] MEDS: INSULIN NovoLIN REGULAR SUPPLEMENTAL SCALE SQ SCH ×4 (08:00→21:00)
[2018-01-26] MEDS: CHLORHEXIDINE 0.12% (ORAL KIT) 15 ML CUP MT SCH ×2 (08:00→20:00)
[2018-01-26] MEDS: ARTIFICIAL TEARS OPTH OINT 3.5 APPLIC/3.5 GM TUBO EACH EYE SCH ×2 (09:00→21:00)
[2018-01-26] MEDS: MUPIROCIN 2% OINT 1 APPLIC/GM SYR EACH NARE SCH ×2 (09:00→21:00)
[2018-01-26] MEDS: SODIUM CHLORIDE 0.9% FLUSH 10 ML FLUSH IV FLUSH SCH ×3 (09:00→21:37)
[2018-01-26] MEDS: FAMOTIDINE 20 MG TAB PO SCH ×2 (09:34→21:37)
[2018-01-26] MEDS: MULTIVITAMIN TAB PO SCH (09:34)
[2018-01-26] MEDS: METOPROLOL TARTRATE 25 MG TAB PO SCH ×2 (09:34→21:36)
[2018-01-26] MEDS: ASPIRIN 81 MG CHEW TAB CHEW SCH (09:34)
[2018-01-26] MEDS: VANCOMYCIN 1,000 MG/NS 250 ML IV SCH ×4 (11:07→22:44)
--- NOTE | 2018-01-26 13:21 | HHI.PR ---
Subjective Remarks Patient is lying in bed in NAD. s/p trach removal. Objective Vital Signs Vital Signs Date Time Temp Pulse Resp B/P (MAP) Pulse Ox O2 Delivery O2 Flow Rate FiO2 01/26/18 08:00 98.2 104 20 124/76 (92) 97 01/26/18 07:58 Nasal Cannula 1.00 01/26/18 04:00 89 01/26/18 04:00 98.4 103 16 121/59 (79) 99 01/26/18 00:00 98.6 104 16 127/58 (81) 99 01/26/18 00:00 105 01/25/18 23:00 Nasal Cannula 1.00 01/25/18 20:22 98 Nasal Cannula 1.00 01/25/18 20:00 98.6 113 17 123/68 (86) 97 01/25/18 20:00 106 01/25/18 16:10 98.4 114 20 144/78 (100) 97 01/25/18 16:00 112 I/O 01/25/18 01/25/18 01/25/18 01/26/18 01/26/18 01/26/18 07:00 15:00 23:00 07:00 15:00 23:00 Intake Total 0 ml 480 ml 120 ml Balance 0 ml 480 ml 120 ml Intake Oral 0 ml 480 ml 120 ml # Voids 3 3 2 # Bowel Movements 1 1 Result Diagram: 01/24/18 0730 01/24/18 0730 Other Results Last Impressions Chest X-Ray 01/10/18 0600 Signed Impressions: Service Date/Time: January 03:55 - CONCLUSION: No significant change in aeration Demarco Gupta MD Chest CT 01/10/18 0000 Signed Impressions: Service Date/Time: January 17:23 - CONCLUSION: 1. There are areas of dense consolidation in the lung bases. These have significantly improved when compared to the prior exam. 2. Scattered emphysematous blebs within the pulmonary parenchyma. 3. Small area consolidation in the right middle lobe. 4. The emphysematous blebs in the right middle lobe and left lower lobe are new. The overall appearance of the chest is improved when compared to the previous study of 12/16/17. Adam Latif MD Abdomen X-Ray 01/09/18 0000 Signed Impressions: Service Date/Time: Tuesday, January 09, 2018 17:16 - CONCLUSION: No dilated loops of small bowel. Gastrostomy in place. Yomi Lopez MD Abdomen/Pelvis CT 01/04/18 0000 Signed Impressions: Service Date/Time: Friday, January 05, 2018 00:57 - CONCLUSION: Rectal tube in good position. Some asymmetry of the renal nephrograms the left one being slightly delayed of uncertain etiology. Conceivably pyelonephritis would be within the differential on the left based on the patient's symptoms of leukocytosis. Ravinder Krause MD CT Angiography 12/16/17 0000 Signed Impressions: Service Date/Time: Saturday, December 16, 2017 13:49 - CONCLUSION: 1. Negative for pulmonary emboli. 2. Dense consolidation in the lungs especially the lung bases with several cavitary lesions as above. Findings are most characteristic of pneumonia. Cannot exclude septic embolic disease. No significant effusion. Malachi Hardin MD Objective Remarks GENERAL: Patient is 48 yo lying in be din NAD SKIN: Warm and dry. HEAD: Normocephalic. EYES: No scleral icterus. No injection or drainage. NECK: Supple, trachea midline. No JVD or lymphadenopathy. CARDIOVASCULAR: Regular rate and rhythm without murmurs, gallops, or rubs. RESPIRATORY: Breath sounds equal bilaterally. No accessory muscle use. GASTROINTESTINAL: Abdomen soft, non-tender, nondistended. MUSCULOSKELETAL: No cyanosis, or edema. Neuro: Awake and alert A/P Assessment and Plan 1)Resp Insuff s/p trach removal 2)s/p ARDS 3)Pulmonary cavitary lesions PLAN: Cont with oxygen keep sats >92% Bronchodilators( DuoNeb, Pulmicort) Check CXR in am Abx per ID ( On Vanco) till 01/28 per ID GI/DVT prophylaxis - on Pepcid and Heparin SQ respectively Continue treatment plan Crystal Magdaleno MD Jan 26, 2018 13:21
--- NOTE | 2018-01-26 15:33 | HHI.PR ---
Subjective Remarks Pt seen and examined. VS reviewed. She reports she is feeling very well and denies any acute concerns. She states she is eating well and looking forward to removing PEG tube. Denies CP, SOB, abdominal pain, N/V. Objective Vital Signs Date Time Temp Pulse Resp B/P (MAP) Pulse Ox O2 Delivery O2 Flow Rate FiO2 01/26/18 08:00 98.2 104 20 124/76 (92) 97 01/26/18 07:58 Nasal Cannula 1.00 01/26/18 04:00 89 01/26/18 04:00 98.4 103 16 121/59 (79) 99 01/26/18 00:00 98.6 104 16 127/58 (81) 99 01/26/18 00:00 105 01/25/18 23:00 Nasal Cannula 1.00 01/25/18 20:22 98 Nasal Cannula 1.00 01/25/18 20:00 98.6 113 17 123/68 (86) 97 01/25/18 20:00 106 01/25/18 16:10 98.4 114 20 144/78 (100) 97 01/25/18 16:00 112 I/O 01/25/18 01/25/18 01/25/18 01/26/18 01/26/18 01/26/18 06:59 14:59 22:59 06:59 14:59 22:59 Intake Total 0 ml 480 ml 120 ml Balance 0 ml 480 ml 120 ml Intake Oral 0 ml 480 ml 120 ml # Voids 3 3 2 # Bowel Movements 1 1 Result Diagram: 01/24/1830 01/24/18 0730 Objective Remarks GENERAL: WN, WD female resting in bed in [facility]. SKIN: Warm and dry. HEENT: AT/NC. Pupils equal and round. MMM. NECK: Supple no tender LAD or JVD. Decannulated trach site without surrounding erythema or drainage. HEART: RRR no m/r/g. LUNGS: CTAB without wheezes or crackles. ABDOMEN: +BS, soft, NT, ND. PEG tube in place no surrounding erythema or drainage. EXTREMITIES: No LE edema. 2+ pedal pulses. NEURO: Awake and alert. Nonfocal. PSYCH: Appropriate mood and affect. A/P Assessment and Plan 47-year-old female admitted on 12/16 for severe sepsis and pneumonia that developed into ARDS requiring endotracheal intubation and ultimately prone positioning. 1. Severe sepsis/MRSA PNA/ARDs/MRSA bacteremia - Admitted to ICU on 12/16 with severe sepsis and bilateral PNA - Went into respiratory distress and intubated the same day - Coded on 12/21 (received epinephrine with CCs with ROSC within 5 minutes) - Required Rotoprone bed - Underwent tracheostomy on 12/30 and removed 01/23 - Pulmonology following, appreciate reccs - Supplemental O2 and bronchodilators - Repeat CXR in AM - ID consulted, on vancomycin until 01/28 2. Generalized weakness/debility - Secondary to prolonged bedrest/intubation - Continue working with PT and OT 3. Dysphagia/PEG tube - Patient eating well and tolerating PO - Systems Administrator following: "Pt has advanced to a Mechanical Soft diet and continues to drink her supplements. Will run another calorie count 01/26-01/28 with nutritional recs provided 01/29. Continue current POC including TFings during calorie count." 4. Hyperthyroidism - TSH 0.012 on 12/21 - Possibly from acute illness - Recheck TSH DVT Prophylaxis: Heparin Erna Bowers MD Jan 26, 2018 15:33
[2018-01-26] MEDS: RESP: ALBUTEROL 2.5 MG/IPRATROPIUM 0.5 MG NEB (SCH) NEB (20:27)
[2018-01-26] MEDS: ALPRAZolam 0.5 MG TAB PO PRN (22:44)
[2018-01-27] VITALS (8 sets, daily range): BP systolic 111–125; BP diastolic 58–80; PULSE 86–116; RESP 16–20; TEMP 97.6–99.1; O2SAT 95–100
--- NOTE | 2018-01-27 05:39 | RADRPT ---
EXAM DATE/TIME: 01/27/2018 03:54 [facility] COMPARISON: CHEST SINGLE AP, January 10, 2018, 3:55. INDICATIONS : Shortness of breath. MEDICAL HISTORY : Hypertension. SURGICAL HISTORY : Hysterectomy. Cholecystectomy. ENCOUNTER: Subsequent ACUITY: 3 weeks PAIN SCORE: 0/10 LOCATION: Bilateral chest FINDINGS: A single view of the chest demonstrates the lungs to be symmetrically aerated without evidence of mas s, infiltrate or effusion. The cardiomediastinal contours are unremarkable. Osseous structures are intact. CONCLUSION: No acute disease. Yomi Shipley Jr., MD on January 27, 2018 at 5:38 Board Certified Radiologist. This report was verified electronically.
[2018-01-27] MEDS: LEVOTHYROXINE SODIUM 25 MCG TAB PO SCH (06:01)
[2018-01-27] MEDS: HEPARIN SODIUM - SQ 10,000 UNITS/ML VIAL SQ SCH ×3 (06:01→20:00)
[2018-01-27] MEDS: METOCLOPRAMIDE HCL 10 MG/2 ML VIAL IV PUSH SCH ×3 (06:02→22:50)
[2018-01-27] MEDS: CHLORHEXIDINE 0.12% (ORAL KIT) 15 ML CUP MT SCH ×2 (08:00→20:00)
[2018-01-27] MEDS: INSULIN NovoLIN REGULAR SUPPLEMENTAL SCALE SQ SCH ×4 (08:00→21:00)
[2018-01-27] MEDS: METOPROLOL TARTRATE 25 MG TAB PO SCH ×2 (08:48→20:21)
[2018-01-27] MEDS: MULTIVITAMIN TAB PO SCH (08:48)
[2018-01-27] MEDS: FAMOTIDINE 20 MG TAB PO SCH ×2 (08:49→20:21)
[2018-01-27] MEDS: MUPIROCIN 2% OINT 1 APPLIC/GM SYR EACH NARE SCH ×2 (08:49→21:00)
[2018-01-27] MEDS: SODIUM CHLORIDE 0.9% FLUSH 10 ML FLUSH IV FLUSH SCH ×3 (08:49→20:21)
[2018-01-27] MEDS: ARTIFICIAL TEARS OPTH OINT 3.5 APPLIC/3.5 GM TUBO EACH EYE SCH ×2 (08:49→21:00)
[2018-01-27] MEDS: ASPIRIN 81 MG CHEW TAB CHEW SCH (08:49)
[2018-01-27] MEDS: RESP: ALBUTEROL 2.5 MG/IPRATROPIUM 0.5 MG NEB (SCH) NEB ×3 (09:29→20:52)
[2018-01-27] MEDS: RESP: BUDESONIDE 0.5 MG/2 ML NEB NEB SCH ×2 (09:30→20:52)
[2018-01-27 09:41] LABS: BICARBONATE 24.3 MEQ/L (21.0-32.0); CALCIUM 9.5 MG/DL (8.5-10.1); CREATININE 0.48 MG/DL (0.50-1.00)
--- NOTE | 2018-01-27 10:32 | HHI.PR ---
Subjective Remarks Patient is lying in bed in NAD. CXR today showed no acute disease Objective Vital Signs Vital Signs Date Time Temp Pulse Resp B/P (MAP) Pulse Ox O2 Delivery O2 Flow Rate FiO2 01/27/18 09:33 97 Nasal Cannula 1.00 01/27/18 08:00 98.0 105 20 120/67 (84) 97 01/27/18 04:00 97.8 89 16 115/58 (77) 99 01/27/18 04:00 86 01/27/18 00:00 86 01/27/18 00:00 Nasal Cannula 1.00 01/27/18 00:00 97.6 98 16 111/68 (82) 100 01/26/18 20:28 97 Nasal Cannula 1.00 01/26/18 20:20 Nasal Cannula 1.00 01/26/18 20:00 107 01/26/18 20:00 97.7 107 18 117/64 (81) 97 01/26/18 16:00 98.7 109 20 119/67 (84) 96 01/26/18 16:00 99 01/26/18 12:00 98.6 111 20 142/75 (97) 98 01/26/18 12:00 112 I/O 01/26/18 01/26/18 01/26/18 01/27/18 01/27/18 01/27/18 07:00 15:00 23:00 07:00 15:00 23:00 Intake Total 120 ml 250 ml 970 ml 237 ml Balance 120 ml 250 ml 970 ml 237 ml Intake Oral 120 ml 720 ml 237 ml IV Total 250 ml 250 ml # Voids 2 2 2 # Bowel Movements 1 0 Result Diagram: 01/24/18 0730 01/27/18 0842 Other Results Last Impressions Chest X-Ray 01/27/18 0600 Signed Impressions: Service Date/Time: Saturday, January 27, 2018 03:54 - CONCLUSION: No acute disease. Yomi Shipley Jr., MD Chest CT 01/10/18 0000 Signed Impressions: Service Date/Time: January 17:23 - CONCLUSION: 1. There are areas of dense consolidation in the lung bases. These have significantly improved when compared to the prior exam. 2. Scattered emphysematous blebs within the pulmonary parenchyma. 3. Small area consolidation in the right middle lobe. 4. The emphysematous blebs in the right middle lobe and left lower lobe are new. The overall appearance of the chest is improved when compared to the previous study of 12/16/17. Adam Latif MD Abdomen X-Ray 01/09/18 0000 Signed Impressions: Service Date/Time: Tuesday, January 09, 2018 17:16 - CONCLUSION: No dilated loops of small bowel. Gastrostomy in place. Yomi Lopez MD Abdomen/Pelvis CT 01/04/18 0000 Signed Impressions: Service Date/Time: Friday, January 05, 2018 00:57 - CONCLUSION: Rectal tube in good position. Some asymmetry of the renal nephrograms the left one being slightly delayed of uncertain etiology. Conceivably pyelonephritis would be within the differential on the left based on the patient's symptoms of leukocytosis. Ravinder Krause MD CT Angiography 12/16/17 0000 Signed Impressions: Service Date/Time: Saturday, December 16, 2017 13:49 - CONCLUSION: 1. Negative for pulmonary emboli. 2. Dense consolidation in the lungs especially the lung bases with several cavitary lesions as above. Findings are most characteristic of pneumonia. Cannot exclude septic embolic disease. No significant effusion. Malachi Hardin MD Objective Remarks GENERAL: Patient is 48 yo lying in be din NAD SKIN: Warm and dry. HEAD: Normocephalic. EYES: No scleral icterus. No injection or drainage. NECK: Supple, trachea midline. No JVD or lymphadenopathy. CARDIOVASCULAR: Regular rate and rhythm without murmurs, gallops, or rubs. RESPIRATORY: Breath sounds equal bilaterally. No accessory muscle use. GASTROINTESTINAL: Abdomen soft, non-tender, nondistended. MUSCULOSKELETAL: No cyanosis, or edema. Neuro: Awake and alert A/P Assessment and Plan 1)Resp Insuff s/p trach removal 2)s/p ARDS 3)Pulmonary cavitary lesions PLAN: Cont with oxygen keep sats >92% Bronchodilators( DuoNeb, Pulmicort) CXR today showed no acute disease Abx per ID ( On Vanco) till 01/28 per ID GI/DVT prophylaxis - on Pepcid and Heparin SQ respectively Continue treatment plan Crystal Magdaleno MD Jan 27, 2018 10:32
[2018-01-27] MEDS: VANCOMYCIN 1,000 MG/NS 250 ML IV SCH ×4 (11:36→22:50)
--- NOTE | 2018-01-27 14:02 | HHI.PR ---
Subjective Remarks Pt seen and examined. VS reviewed. She reports she is feeling well and denies any acute concerns. She states she is eating well and looking forward to removing PEG tube. Denies CP, SOB, abdominal pain, N/V. Feels weak from being in hospital. Objective Vital Signs Date Time Temp Pulse Resp B/P (MAP) Pulse Ox O2 Delivery O2 Flow Rate FiO2 01/27/18 12:00 100 01/27/18 09:33 97 Nasal Cannula 1.00 01/27/18 08:00 93 01/27/18 08:00 98.0 105 20 120/67 (84) 97 01/27/18 07:00 Nasal Cannula 1.00 01/27/18 04:00 97.8 89 16 115/58 (77) 99 01/27/18 04:00 86 01/27/18 00:00 86 01/27/18 00:00 Nasal Cannula 1.00 01/27/18 00:00 97.6 98 16 111/68 (82) 100 01/26/18 20:28 97 Nasal Cannula 1.00 01/26/18 20:20 Nasal Cannula 1.00 01/26/18 20:00 107 01/26/18 20:00 97.7 107 18 117/64 (81) 97 01/26/18 16:00 98.7 109 20 119/67 (84) 96 01/26/18 16:00 99 I/O 01/26/18 01/26/18 01/26/18 01/27/18 01/27/18 01/27/18 07:00 15:00 23:00 07:00 15:00 23:00 Intake Total 120 ml 250 ml 970 ml 237 ml Balance 120 ml 250 ml 970 ml 237 ml Intake Oral 120 ml 720 ml 237 ml IV Total 250 ml 250 ml # Voids 2 2 2 # Bowel Movements 1 0 Result Diagram: 01/24/18 0730 01/27/18 0842 Objective Remarks GENERAL: WN, WD female resting in bed in [facility]. SKIN: Warm and dry. HEENT: AT/NC. Pupils equal and round. MMM. NECK: Supple no tender LAD or JVD. Decannulated trach site without surrounding erythema or drainage. HEART: RRR no m/r/g. LUNGS: CTAB without wheezes or crackles. ABDOMEN: +BS, soft, NT, ND. PEG tube in place no surrounding erythema or drainage. EXTREMITIES: No LE edema. 2+ pedal pulses. NEURO: Awake and alert. Nonfocal. PSYCH: Appropriate mood and affect. A/P Assessment and Plan 47-year-old female admitted on 12/16 for severe sepsis and pneumonia that developed into ARDS requiring endotracheal intubation and ultimately prone positioning. 1. Severe sepsis/MRSA PNA/ARDs/MRSA bacteremia - Admitted to ICU on 12/16 with severe sepsis and bilateral PNA - Went into respiratory distress and intubated the same day - Coded on 12/21 (received epinephrine with CCs with ROSC within 5 minutes) - Required Rotoprone bed - Underwent tracheostomy on 12/30 and removed 01/23 - Pulmonology following, appreciate reccs - Supplemental O2 and bronchodilators - Repeat CXR this AM with no acute disease - ID consulted, on vancomycin until 01/28 2. Generalized weakness/debility - Secondary to prolonged bedrest/intubation - Continue working with PT and OT - Recommending rehab but unfortunately patient is uninsured, CM assisting with D /C needs 3. Dysphagia/PEG tube - Patient eating well and tolerating PO - Waterproofing Mixer following: "Pt has advanced to a Mechanical Soft diet and continues to drink her supplements. Will run another calorie count 01/26-01/28 with nutritional recs provided 01/29. Continue current POC including TFings during calorie count." 4. Hyperthyroidism - TSH 0.012 on 12/21 - Possibly from acute illness - Rechecked TSH and it has normalized - Resume Levothyroxine but central hypothyroidism needs to be worked up as an outpatient given low T3 and T4 during acute illness DVT Prophylaxis: Heparin Discharge Planning Will likely be medically clear for discharge in next couple days Erna Bowers MD Jan 27, 2018 14:02
[2018-01-27] MEDS: ALPRAZolam 0.5 MG TAB PO PRN (22:49)
[2018-01-28] VITALS (13 sets, daily range): BP systolic 109–127; BP diastolic 53–80; PULSE 89–118; RESP 17–20; TEMP 97.8–99.3; O2SAT 95–98
[2018-01-28] MEDS: LEVOTHYROXINE SODIUM 25 MCG TAB PO SCH (05:10)
[2018-01-28] MEDS: HEPARIN SODIUM - SQ 10,000 UNITS/ML VIAL SQ SCH ×3 (05:11→20:00)
[2018-01-28] MEDS: METOCLOPRAMIDE HCL 10 MG/2 ML VIAL IV PUSH SCH ×3 (05:52→22:53)
[2018-01-28] MEDS: INSULIN NovoLIN REGULAR SUPPLEMENTAL SCALE SQ SCH ×4 (07:46→21:00)
[2018-01-28] MEDS: RESP: ALBUTEROL 2.5 MG/IPRATROPIUM 0.5 MG NEB (SCH) NEB ×3 (08:00→20:04)
[2018-01-28] MEDS: CHLORHEXIDINE 0.12% (ORAL KIT) 15 ML CUP MT SCH ×2 (08:00→20:00)
[2018-01-28] MEDS: RESP: BUDESONIDE 0.5 MG/2 ML NEB NEB SCH ×2 (08:00→20:04)
[2018-01-28] MEDS: MULTIVITAMIN TAB PO SCH (08:31)
[2018-01-28] MEDS: ASPIRIN 81 MG CHEW TAB CHEW SCH (08:32)
[2018-01-28] MEDS: FAMOTIDINE 20 MG TAB PO SCH ×2 (08:32→21:00)
[2018-01-28] MEDS: METOPROLOL TARTRATE 25 MG TAB PO SCH ×2 (08:32→22:52)
[2018-01-28] MEDS: SODIUM CHLORIDE 0.9% FLUSH 10 ML FLUSH IV FLUSH SCH ×3 (08:32→21:00)
[2018-01-28] MEDS: MUPIROCIN 2% OINT 1 APPLIC/GM SYR EACH NARE SCH ×2 (08:34→21:00)
[2018-01-28] MEDS: ARTIFICIAL TEARS OPTH OINT 3.5 APPLIC/3.5 GM TUBO EACH EYE SCH ×2 (08:34→21:00)
[2018-01-28] MEDS: VANCOMYCIN 1,000 MG/NS 250 ML IV SCH ×4 (11:06→22:50)
--- NOTE | 2018-01-28 16:33 | HHI.PR ---
Subjective Remarks Pt seen and examined. VS reviewed. She reports she is feeling well and denies any acute concerns. She states she is eating well and looking forward to removing PEG tube. Denies CP, SOB, abdominal pain, N/V. Was able to walk for the first time for a little with PT today but admits to being very weak. She is looking forward to getting stronger. Objective Vital Signs Date Time Temp Pulse Resp B/P (MAP) Pulse Ox O2 Delivery O2 Flow Rate FiO2 01/28/18 11:50 99.3 103 20 120/54 (76) 97 01/28/18 09:06 95 21 01/28/18 08:00 94 01/28/18 07:45 99.0 95 18 119/56 (77) 95 01/28/18 07:00 Room Air 01/28/18 04:00 89 01/28/18 04:00 98.3 98 20 124/57 (79) 97 01/28/18 00:00 Room Air 01/28/18 00:00 92 01/28/18 00:00 98.1 96 20 109/56 (73) 98 01/27/18 20:53 97 Nasal Cannula 1.00 01/27/18 20:00 98.7 102 20 123/59 (80) 95 01/27/18 20:00 116 01/27/18 20:00 Nasal Cannula 1.00 I/O 01/27/18 01/27/18 01/27/18 01/28/18 01/28/18 01/28/18 07:00 15:00 23:00 07:00 15:00 23:00 Intake Total 237 ml 250 ml 850 ml Balance 237 ml 250 ml 850 ml Intake Oral 237 ml 600 ml IV Total 250 ml 250 ml # Voids 2 2 2 # Bowel Movements 0 2 1 Result Diagram: 01/24/18 0730 01/27/18 0842 Objective Remarks GENERAL: WN, WD female resting in bed in [facility]. SKIN: Warm and dry. HEENT: AT/NC. Pupils equal and round. MMM. NECK: Supple no tender LAD or JVD. Decannulated trach site without surrounding erythema or drainage. HEART: RRR no m/r/g. LUNGS: CTAB without wheezes or crackles. ABDOMEN: +BS, soft, NT, ND. PEG tube in place no surrounding erythema or drainage. EXTREMITIES: No LE edema. 2+ pedal pulses. NEURO: Awake and alert. Nonfocal. PSYCH: Appropriate mood and affect. A/P Assessment and Plan 47-year-old female admitted on 12/16 for severe sepsis and pneumonia that developed into ARDS requiring endotracheal intubation and ultimately prone positioning. Plan: - Consult frame polisher to reevaluate intake and if adequate can consult GI to remove PEG 1. Severe sepsis/MRSA PNA/ARDs/MRSA bacteremia - Admitted to ICU on 12/16 with severe sepsis and bilateral PNA - Went into respiratory distress and intubated the same day - Coded on 12/21 (received epinephrine with CCs with ROSC within 5 minutes) - Required Rotoprone bed - Underwent tracheostomy on 12/30 and removed 01/23 - Pulmonology following, appreciate reccs - Supplemental O2 and bronchodilators - Repeat CXR 01/27 with no acute disease - ID consulted, on vancomycin until 01/28 2. Generalized weakness/debility - Secondary to prolonged bedrest/intubation - Continue working with PT and OT - Recommending rehab but unfortunately patient is uninsured, CM assisting with D /C needs 3. Dysphagia/PEG tube - Patient eating well and tolerating PO - Incident Response Specialist following: "Pt has advanced to a Mechanical Soft diet and continues to drink her supplements. Will run another calorie count 01/26-01/28 with nutritional recs provided 01/29. Continue current POC including TFings during calorie count." 4. Hyperthyroidism - TSH 0.012 on 12/21 - Possibly from acute illness - Rechecked TSH and it has normalized - Resume Levothyroxine but central hypothyroidism needs to be worked up as an outpatient given low T3 and T4 during acute illness DVT Prophylaxis: Heparin Discharge Planning Will likely be medically clear for discharge in next couple days Erna Bowers MD Jan 28, 2018 16:33
--- NOTE | 2018-01-28 18:37 | HHI.PR ---
Subjective Remarks alert no distress doing well post tracheostomy removal Objective Vital Signs Date Time Temp Pulse Resp B/P (MAP) Pulse Ox O2 Delivery O2 Flow Rate FiO2 01/28/18 16:00 109 01/28/18 15:33 97.8 109 18 127/67 (87) 97 01/28/18 12:00 107 01/28/18 11:50 99.3 103 20 120/54 (76) 97 01/28/18 09:06 95 21 01/28/18 08:00 94 01/28/18 07:45 99.0 95 18 119/56 (77) 95 01/28/18 07:00 Room Air 01/28/18 04:00 89 01/28/18 04:00 98.3 98 20 124/57 (79) 97 01/28/18 00:00 Room Air 01/28/18 00:00 92 01/28/18 00:00 98.1 96 20 109/56 (73) 98 01/27/18 20:53 97 Nasal Cannula 1.00 01/27/18 20:00 98.7 102 20 123/59 (80) 95 01/27/18 20:00 116 01/27/18 20:00 Nasal Cannula 1.00 I/O 01/27/18 01/27/18 01/27/18 01/28/18 01/28/18 01/28/18 07:00 15:00 23:00 07:00 15:00 23:00 Intake Total 237 ml 250 ml 850 ml 250 ml 250 ml Balance 237 ml 250 ml 850 ml 250 ml 250 ml Intake Oral 237 ml 600 ml IV Total 250 ml 250 ml 250 ml 250 ml # Voids 2 2 2 # Bowel Movements 0 2 1 Result Diagram: 01/24/18 0730 01/27/18 0842 Objective Remarks GENERAL: sedated on vent support SKIN: Warm and dry. HEAD: Atraumatic. Normocephalic. EYES: Pupils equal and round. No scleral icterus. No injection or drainage. ENT: No nasal bleeding or discharge. Mucous membranes pink and moist. NECK: Trachea midline. No JVD. CARDIOVASCULAR: Regular rate and rhythm. RESPIRATORY: No accessory muscle use. Clear to auscultation. Breath sounds equal bilaterally. GASTROINTESTINAL: Abdomen soft, non-tender, nondistended. Hepatic and splenic margins not palpable. MUSCULOSKELETAL: Extremities without clubbing, cyanosis, or edema. No obvious deformities. NEUROLOGICAL: Awake and alert. No obvious cranial nerve deficits. Motor grossly within normal limits. Five out of 5 muscle strength in the arms and legs. Normal speech. PSYCHIATRIC: Appropriate mood and affect; insight and judgment normal. Assessment and Plan Assessment and Plan imp: ALERT, stable post trach removal plan O2 as needed pulm toilet PT Ileana Tejeda MD Jan 28, 2018 18:37
[2018-01-28] MEDS: ALPRAZolam 0.5 MG TAB PO PRN (22:51)
[2018-01-29] VITALS (11 sets, daily range): BP systolic 118–146; BP diastolic 58–75; PULSE 91–119; RESP 16–18; TEMP 98–98.6; O2SAT 95–98
[2018-01-29] MEDS: METOCLOPRAMIDE HCL 10 MG/2 ML VIAL IV PUSH SCH (05:42)
[2018-01-29 06:47] LABS: CREATININE 0.49 MG/DL (0.50-1.00)
[2018-01-29] MEDS: LEVOTHYROXINE SODIUM 25 MCG TAB PO SCH (07:19)
[2018-01-29] MEDS: HEPARIN SODIUM - SQ 10,000 UNITS/ML VIAL SQ SCH ×3 (07:19→22:28)
[2018-01-29] MEDS: MUPIROCIN 2% OINT 1 APPLIC/GM SYR EACH NARE SCH ×2 (07:42→20:45)
[2018-01-29] MEDS: CHLORHEXIDINE 0.12% (ORAL KIT) 15 ML CUP MT SCH ×2 (07:42→20:00)
[2018-01-29] MEDS: INSULIN NovoLIN REGULAR SUPPLEMENTAL SCALE SQ SCH ×2 (08:00→12:00)
[2018-01-29] MEDS: ASPIRIN 81 MG CHEW TAB CHEW SCH (08:04)
[2018-01-29] MEDS: FAMOTIDINE 20 MG TAB PO SCH ×2 (08:04→20:45)
[2018-01-29] MEDS: MULTIVITAMIN TAB PO SCH (08:04)
[2018-01-29] MEDS: METOPROLOL TARTRATE 25 MG TAB PO SCH ×2 (08:04→22:26)
[2018-01-29] MEDS: SODIUM CHLORIDE 0.9% FLUSH 10 ML FLUSH IV FLUSH SCH ×3 (08:04→21:00)
[2018-01-29] MEDS: RESP: BUDESONIDE 0.5 MG/2 ML NEB NEB SCH ×2 (08:25→18:58)
[2018-01-29] MEDS: RESP: ALBUTEROL 2.5 MG/IPRATROPIUM 0.5 MG NEB (SCH) NEB ×3 (08:25→18:58)
[2018-01-29] MEDS: ARTIFICIAL TEARS OPTH OINT 3.5 APPLIC/3.5 GM TUBO EACH EYE SCH ×2 (09:00→20:44)
--- NOTE | 2018-01-29 09:01 | HHI.PR ---
Subjective Remarks alert no distress Objective Vital Signs Date Time Temp Pulse Resp B/P (MAP) Pulse Ox O2 Delivery O2 Flow Rate FiO2 01/29/18 08:26 96 21 01/29/18 08:00 98.2 99 18 125/65 (85) 97 01/29/18 07:00 Room Air 01/29/18 05:08 98.4 102 16 126/59 (81) 98 01/29/18 04:00 91 01/29/18 00:20 98.5 115 16 124/58 (80) 97 01/29/18 00:00 Room Air 01/29/18 00:00 107 01/28/18 23:08 98.0 110 20 114/80 (91) 98 01/28/18 21:00 99.3 118 17 113/53 (73) 96 01/28/18 20:30 Room Air 01/28/18 20:05 97 01/28/18 20:00 115 01/28/18 16:00 109 01/28/18 15:33 97.8 109 18 127/67 (87) 97 01/28/18 12:00 107 01/28/18 11:50 99.3 103 20 120/54 (76) 97 01/28/18 09:06 95 21 I/O 01/28/18 01/28/18 01/28/18 01/29/18 01/29/18 01/29/18 07:00 15:00 23:00 07:00 15:00 23:00 Intake Total 250 ml 1090 ml 200 ml Balance 250 ml 1090 ml 200 ml Intake Oral 840 ml 200 ml IV Total 250 ml 250 ml # Voids 2 3 4 # Bowel Movements 1 1 0 Result Diagram: 01/29/18 0515 Objective Remarks GENERAL: sedated on vent support SKIN: Warm and dry. HEAD: Atraumatic. Normocephalic. EYES: Pupils equal and round. No scleral icterus. No injection or drainage. ENT: No nasal bleeding or discharge. Mucous membranes pink and moist. NECK: Trachea midline. No JVD. CARDIOVASCULAR: Regular rate and rhythm. RESPIRATORY: No accessory muscle use. Clear to auscultation. Breath sounds equal bilaterally. GASTROINTESTINAL: Abdomen soft, non-tender, nondistended. Hepatic and splenic margins not palpable. MUSCULOSKELETAL: Extremities without clubbing, cyanosis, or edema. No obvious deformities. NEUROLOGICAL: Awake and alert. No obvious cranial nerve deficits. Motor grossly within normal limits. Five out of 5 muscle strength in the arms and legs. Normal speech. PSYCHIATRIC: Appropriate mood and affect; insight and judgment normal. Assessment and Plan Assessment and Plan imp: ALERT, stable post trach removal plan O2 as needed pulm toilet PT Ileana Tejeda MD Jan 29, 2018 09:01
--- NOTE | 2018-01-29 10:51 | HHI.IDPN ---
Note Infectious Disease Note Patient is clinically doing well from ID standpoint Has been afebrile Doing well from pulmonary stabdpoint CXR improved Has completed course of IV Abx for her infection yesterday January 28 I will sign off Please call if with any new ID issue or question Liliam Palmer MD, MD Jan 29, 2018 10:51
--- NOTE | 2018-01-29 13:46 | HHI.GIFU ---
Subjective Remarks GI reconsulted for PEG tube removal. Pt is awake, trach removed. Nutrition has evaluated her. (Carla Rivas) Objective Vitals I&O Vital Signs Date Time Temp Pulse Resp B/P (MAP) Pulse Ox O2 Delivery O2 Flow Rate FiO2 01/29/18 12:00 98.0 99 18 118/64 (82) 97 01/29/18 08:26 96 21 01/29/18 08:00 98.2 99 18 125/65 (85) 97 01/29/18 07:00 Room Air 01/29/18 05:08 98.4 102 16 126/59 (81) 98 01/29/18 04:00 91 01/29/18 00:20 98.5 115 16 124/58 (80) 97 01/29/18 00:00 Room Air 01/29/18 00:00 107 01/28/18 23:08 98.0 110 20 114/80 (91) 98 01/28/18 21:00 99.3 118 17 113/53 (73) 96 01/28/18 20:30 Room Air 01/28/18 20:05 97 01/28/18 20:00 115 01/28/18 16:00 109 01/28/18 15:33 97.8 109 18 127/67 (87) 97 I/O 01/28/18 01/28/18 01/28/18 01/29/18 01/29/18 01/29/18 07:00 15:00 23:00 07:00 15:00 23:00 Intake Total 250 ml 1090 ml 200 ml Balance 250 ml 1090 ml 200 ml Intake Oral 840 ml 200 ml IV Total 250 ml 250 ml # Voids 2 3 4 1 # Bowel Movements 1 1 0 1 Laboratory Laboratory Tests Test 01/29/18 05:15 Creatinine 0.49 Estimat Glomerular Filtration Rate 135 Date/Time Source Procedure Growth Status 01/01/18 15:53 Blood Peripheral Aerobic Blood Culture - Final NO GROWTH IN 5 DAYS Complete 01/01/18 15:53 Blood Peripheral Anaerobic Blood Culture - Final NO GROWTH IN 5 DAYS Complete 01/01/18 16:30 Sputum Endotracheal Gram Stain - Final Complete 01/01/18 16:30 Sputum Culture - Final Aspergillus Fumigatus Complete 01/01/18 14:30 Urine Catheterized Urine Urine Culture - Final NO GROWTH IN 48 HOURS. Complete Imaging Last Impressions Chest X-Ray 01/27/18 0600 Signed Impressions: Service Date/Time: Saturday, January 27, 2018 03:54 - CONCLUSION: No acute disease. Yomi Shipley Jr., MD Chest CT 01/10/18 0000 Signed Impressions: Service Date/Time: January 17:23 - CONCLUSION: 1. There are areas of dense consolidation in the lung bases. These have significantly improved when compared to the prior exam. 2. Scattered emphysematous blebs within the pulmonary parenchyma. 3. Small area consolidation in the right middle lobe. 4. The emphysematous blebs in the right middle lobe and left lower lobe are new. The overall appearance of the chest is improved when compared to the previous study of 12/16/17. Adam Latif MD Abdomen X-Ray 01/09/18 0000 Signed Impressions: Service Date/Time: Tuesday, January 09, 2018 17:16 - CONCLUSION: No dilated loops of small bowel. Gastrostomy in place. Yomi Lopez MD Abdomen/Pelvis CT 01/04/18 0000 Signed Impressions: Service Date/Time: Friday, January 05, 2018 00:57 - CONCLUSION: Rectal tube in good position. Some asymmetry of the renal nephrograms the left one being slightly delayed of uncertain etiology. Conceivably pyelonephritis would be within the differential on the left based on the patient's symptoms of leukocytosis. Ravinder Krause MD CT Angiography 12/16/17 0000 Signed Impressions: Service Date/Time: Saturday, December 16, 2017 13:49 - CONCLUSION: 1. Negative for pulmonary emboli. 2. Dense consolidation in the lungs especially the lung bases with several cavitary lesions as above. Findings are most characteristic of pneumonia. Cannot exclude septic embolic disease. No significant effusion. Malachi Hardin MD Physical Exam HEENT: Normocephalic; atraumatic dressing/gauze anterior neck, clean and dry CHEST: Even/unlabored CARDIAC: RRR ABDOMEN: Soft, nondistended,nontender, BS + , PEG site with scant crusting, no redness or purulence SKIN: Normal; no rash; no jaundice. 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 s/p trach, off rotaprone. pt is agreeable to proceed with PEG tube (01/08) --> Pt S/P PEG placement yesterday --> Mild gastritis, succesful PEG placement. Site with scant amount of dried blood today, gauze is clean and dry, PEG clamped. 01/29/18 GI reconsulted for PEG tube removal. nutrition has evaluated and okay' d d/c TF, pt with sufficient PO intake PLAN - diet per attending & nutrition - PEG tube may be removed 02/05/18 - GI will sign off, please reconsult on above date Pt has been seen and examined by myself and and this note is written on his behalf (Carla Rivas) Physician Comments Patient seen and examined Agree with above Continue with current supportive care Monitor labs Usually for PEG tube to be removed and needs to have a mature tract prior removal and that takes up to 4 weeks to develop therefore reconsult when 4 weeks have gone by (Ronak López MD) Carla Rivas Jan 29, 2018 13:46 Ronak López MD Jan 29, 2018 18:31
--- NOTE | 2018-01-29 15:48 | HHI.DCPOC ---
Discharge Care Plan Diagnosis: (1) Pneumonia Your Health Problems Are: Difficulty with ADL Exercise Tolerance Goals to Promote Your Health * To prevent worsening of your condition and complications * To maintain your health at the optimal level Directions to Meet Your Goals Take your medications as prescribed Follow your dietary instruction Follow activity as directed Keep your appointments as scheduled Take your immunizations and boosters as scheduled If your symptoms worsen call your PCP, if no PCP go to Urgent Care Center or Emergency Room Smoking is Dangerous to Your Health. Avoid second hand smoke Call the 24-hour hour crisis hotline for domestic abuse at Case Mendez MD Jan 29, 2018 15:48
[2018-01-29] MEDS ORDERED: VENTAER INH (15:51)
[2018-01-29] MEDS ORDERED: ASPI81 CHEW (15:54)
[2018-01-29] MEDS ORDERED: METO25TA3 PO (15:54)
[2018-01-29] MEDS ORDERED: LEVO25TA4 PO (15:54)
--- NOTE | 2018-01-29 16:01 | HHI.PR ---
Subjective Remarks Follow-up deconditioning. She is getting physical therapy but not safe and strong enough to be discharged to home. She does not have any payer source for rehab. Discussed with nursing Objective Vitals Vital Signs Date Time Temp Pulse Resp B/P (MAP) Pulse Ox O2 Delivery O2 Flow Rate FiO2 01/29/18 12:00 98.0 99 18 118/64 (82) 97 01/29/18 08:26 96 21 01/29/18 08:00 98.2 99 18 125/65 (85) 97 01/29/18 07:00 Room Air 01/29/18 05:08 98.4 102 16 126/59 (81) 98 01/29/18 04:00 91 01/29/18 00:20 98.5 115 16 124/58 (80) 97 01/29/18 00:00 Room Air 01/29/18 00:00 107 01/28/18 23:08 98.0 110 20 114/80 (91) 98 01/28/18 21:00 99.3 118 17 113/53 (73) 96 01/28/18 20:30 Room Air 01/28/18 20:05 97 01/28/18 20:00 115 01/28/18 16:00 109 I/O 01/28/18 01/28/18 01/28/18 01/29/18 01/29/18 01/29/18 07:00 15:00 23:00 07:00 15:00 23:00 Intake Total 250 ml 1090 ml 200 ml Balance 250 ml 1090 ml 200 ml Intake Oral 840 ml 200 ml IV Total 250 ml 250 ml # Voids 2 3 4 1 # Bowel Movements 1 1 0 1 Result Diagram: 01/29/18 0515 Imaging Last Impressions Chest X-Ray 01/27/18 0600 Signed Impressions: Service Date/Time: Saturday, January 27, 2018 03:54 - CONCLUSION: No acute disease. Yomi Shipley Jr., MD Chest CT 01/10/18 0000 Signed Impressions: Service Date/Time: January 17:23 - CONCLUSION: 1. There are areas of dense consolidation in the lung bases. These have significantly improved when compared to the prior exam. 2. Scattered emphysematous blebs within the pulmonary parenchyma. 3. Small area consolidation in the right middle lobe. 4. The emphysematous blebs in the right middle lobe and left lower lobe are new. The overall appearance of the chest is improved when compared to the previous study of 12/16/17. Adam Latif MD Abdomen X-Ray 01/09/18 0000 Signed Impressions: Service Date/Time: Tuesday, January 09, 2018 17:16 - CONCLUSION: No dilated loops of small bowel. Gastrostomy in place. Yomi Lopez MD Abdomen/Pelvis CT 01/04/18 0000 Signed Impressions: Service Date/Time: Friday, January 05, 2018 00:57 - CONCLUSION: Rectal tube in good position. Some asymmetry of the renal nephrograms the left one being slightly delayed of uncertain etiology. Conceivably pyelonephritis would be within the differential on the left based on the patient's symptoms of leukocytosis. Ravinder Krause MD CT Angiography 12/16/17 0000 Signed Impressions: Service Date/Time: Saturday, December 16, 2017 13:49 - CONCLUSION: 1. Negative for pulmonary emboli. 2. Dense consolidation in the lungs especially the lung bases with several cavitary lesions as above. Findings are most characteristic of pneumonia. Cannot exclude septic embolic disease. No significant effusion. Malachi Hardin MD Objective Remarks GENERAL: WN, WD female resting in bed in NAD. SKIN: Warm and dry. HEENT: AT/NC. Pupils equal and round. MMM. NECK: Supple no tender LAD or JVD. Decannulated trach site without surrounding erythema or drainage. HEART: RRR no m/r/g. LUNGS: CTAB without wheezes or crackles. ABDOMEN: +BS, soft, NT, ND. PEG tube in place no surrounding erythema or drainage. EXTREMITIES: No LE edema. 2+ pedal pulses. NEURO: Awake and alert. Nonfocal. PSYCH: Appropriate mood and affect. Procedures JEANINE, PEG Placement, tracheostomy and subsequent removal, bronchoscopy, central line A/P Problem List: (1) Bilateral pneumonia ICD Code: J18.9 - Pneumonia, unspecified organism Status: Acute (2) Sepsis ICD Code: A41.9 - Sepsis, unspecified organism Status: Acute (3) Anxiety ICD Code: F41.9 - Anxiety disorder, unspecified Status: Chronic Assessment and Plan 47-year-old female admitted on 12/16 for severe sepsis and pneumonia that developed into ARDS requiring endotracheal intubation and ultimately prone positioning. 1. Severe sepsis/MRSA PNA/ARDs/MRSA bacteremia. Resolved status post vancomycin tolerating room air. 2. Generalized weakness/debility. Improving continue PT and OT. 3. Dysphagia/PEG tube. Resolved. Discussed with GI, discontinue PEG February 05, 2018 4. Abnormal TFTs during acute illness. Likely sick euthyroid. Repeat TSH within normal limits. Discontinue levothyroxine DVT Prophylaxis: Heparin Discharge Planning Dc when cleared by PT Problem Qualifiers (1) Sepsis: Qualified Codes: A41.9 - Sepsis, unspecified organism Case Mendez MD Jan 29, 2018 16:01
[2018-01-29] MEDS: ALPRAZolam 0.5 MG TAB PO PRN (22:26)
[2018-01-30] VITALS (8 sets, daily range): BP systolic 116–146; BP diastolic 59–80; PULSE 78–118; RESP 14–18; TEMP 97.5–98.3; O2SAT 95–98
[2018-01-30] MEDS: HEPARIN SODIUM - SQ 10,000 UNITS/ML VIAL SQ SCH ×3 (06:23→21:30)
[2018-01-30] MEDS: RESP: BUDESONIDE 0.5 MG/2 ML NEB NEB SCH ×2 (08:00→21:02)
[2018-01-30] MEDS: RESP: ALBUTEROL 2.5 MG/IPRATROPIUM 0.5 MG NEB (SCH) NEB ×2 (08:15→21:02)
[2018-01-30] MEDS: FAMOTIDINE 20 MG TAB PO SCH ×2 (09:01→21:30)
[2018-01-30] MEDS: ASPIRIN 81 MG CHEW TAB CHEW SCH (09:01)
[2018-01-30] MEDS: MULTIVITAMIN TAB PO SCH (09:01)
[2018-01-30] MEDS: METOPROLOL TARTRATE 25 MG TAB PO SCH ×2 (09:01→21:30)
[2018-01-30] MEDS: CHLORHEXIDINE 0.12% (ORAL KIT) 15 ML CUP MT SCH ×2 (09:04→20:00)
[2018-01-30] MEDS: MUPIROCIN 2% OINT 1 APPLIC/GM SYR EACH NARE SCH ×2 (09:06→21:00)
[2018-01-30] MEDS: ARTIFICIAL TEARS OPTH OINT 3.5 APPLIC/3.5 GM TUBO EACH EYE SCH ×2 (09:06→21:00)
[2018-01-30] MEDS: SODIUM CHLORIDE 0.9% FLUSH 10 ML FLUSH IV FLUSH SCH ×3 (09:07→21:00)
--- NOTE | 2018-01-30 15:40 | HHI.PR ---
Subjective Remarks Follow-up deconditioning. Seen this morning. States she is getting stronger. Awaiting physical therapy evaluation. Discussed with nursing Objective Vitals Vital Signs Date Time Temp Pulse Resp B/P (MAP) Pulse Ox O2 Delivery O2 Flow Rate FiO2 01/30/18 12:00 98.3 116 17 116/74 (88) 95 01/30/18 12:00 118 01/30/18 08:15 Room Air 01/30/18 08:00 110 01/30/18 08:00 98.0 101 17 120/74 (89) 95 01/30/18 04:14 97.5 94 18 128/59 (82) 97 01/30/18 04:00 78 01/30/18 00:49 97.7 101 18 140/71 (94) 98 01/30/18 00:00 100 01/29/18 20:06 98.4 115 18 146/75 (98) 97 01/29/18 20:00 119 01/29/18 18:58 95 21 01/29/18 16:00 98.6 112 18 137/59 (85) 95 01/29/18 16:00 113 I/O 01/29/18 01/29/18 01/29/18 01/30/18 01/30/18 01/30/18 07:00 15:00 23:00 07:00 15:00 23:00 Intake Total 200 ml 480 ml Output Total 2 ml Balance 200 ml 478 ml Intake Oral 200 ml 480 ml Output Urine Total 2 ml # Voids 4 1 # Bowel Movements 0 1 Result Diagram: 01/29/18 0515 Imaging Last Impressions Chest X-Ray 01/27/18 0600 Signed Impressions: Service Date/Time: Saturday, January 27, 2018 03:54 - CONCLUSION: No acute disease. Yomi Shipley Jr., MD Chest CT 01/10/18 0000 Signed Impressions: Service Date/Time: January 17:23 - CONCLUSION: 1. There are areas of dense consolidation in the lung bases. These have significantly improved when compared to the prior exam. 2. Scattered emphysematous blebs within the pulmonary parenchyma. 3. Small area consolidation in the right middle lobe. 4. The emphysematous blebs in the right middle lobe and left lower lobe are new. The overall appearance of the chest is improved when compared to the previous study of 12/16/17. Adam Latif MD Abdomen X-Ray 01/09/18 0000 Signed Impressions: Service Date/Time: Tuesday, January 09, 2018 17:16 - CONCLUSION: No dilated loops of small bowel. Gastrostomy in place. Yomi Lopez MD Abdomen/Pelvis CT 01/04/18 0000 Signed Impressions: Service Date/Time: Friday, January 05, 2018 00:57 - CONCLUSION: Rectal tube in good position. Some asymmetry of the renal nephrograms the left one being slightly delayed of uncertain etiology. Conceivably pyelonephritis would be within the differential on the left based on the patient's symptoms of leukocytosis. Ravinder Krause MD CT Angiography 12/16/17 0000 Signed Impressions: Service Date/Time: Saturday, December 16, 2017 13:49 - CONCLUSION: 1. Negative for pulmonary emboli. 2. Dense consolidation in the lungs especially the lung bases with several cavitary lesions as above. Findings are most characteristic of pneumonia. Cannot exclude septic embolic disease. No significant effusion. Malachi Hardin MD Objective Remarks GENERAL: WN, WD female resting in bed in NAD. SKIN: Warm and dry. HEENT: AT/NC. Pupils equal and round. MMM. NECK: Supple no tender LAD or JVD. Decannulated trach site without surrounding erythema or drainage. HEART: RRR no m/r/g. LUNGS: CTAB without wheezes or crackles. ABDOMEN: +BS, soft, NT, ND. PEG tube in place no surrounding erythema or drainage. EXTREMITIES: No LE edema. 2+ pedal pulses. NEURO: Awake and alert. Nonfocal. PSYCH: Appropriate mood and affect. Procedures JEANINE, PEG Placement, tracheostomy and subsequent removal, bronchoscopy, central line A/P Problem List: (1) Bilateral pneumonia ICD Code: J18.9 - Pneumonia, unspecified organism Status: Acute (2) Sepsis ICD Code: A41.9 - Sepsis, unspecified organism Status: Acute (3) Anxiety ICD Code: F41.9 - Anxiety disorder, unspecified Status: Chronic Assessment and Plan 47-year-old female admitted on 12/16 for severe sepsis and pneumonia that developed into ARDS requiring endotracheal intubation and ultimately prone positioning. 1. Severe sepsis/MRSA PNA/ARDs/MRSA bacteremia. Resolved status post vancomycin tolerating room air. 2. Generalized weakness/debility. Improving continue PT and OT. 3. Dysphagia/PEG tube. Resolved. Discussed with GI, discontinue PEG February 05, 2018 4. Abnormal TFTs during acute illness. Likely sick euthyroid. Repeat TSH within normal limits. Discontinue levothyroxine DVT Prophylaxis: Heparin Discharge Planning Dc when cleared by PT Problem Qualifiers (1) Sepsis: Qualified Codes: A41.9 - Sepsis, unspecified organism Case Mendez MD Jan 30, 2018 15:40
--- NOTE | 2018-01-30 19:20 | HHI.PR ---
Subjective Remarks alert no distress Objective Vital Signs Date Time Temp Pulse Resp B/P (MAP) Pulse Ox O2 Delivery O2 Flow Rate FiO2 01/30/18 16:00 97.8 107 17 146/80 (102) 96 01/30/18 16:00 105 01/30/18 12:00 98.3 116 17 116/74 (88) 95 01/30/18 12:00 118 01/30/18 08:15 Room Air 01/30/18 08:00 110 01/30/18 08:00 98.0 101 17 120/74 (89) 95 01/30/18 04:14 97.5 94 18 128/59 (82) 97 01/30/18 04:00 78 01/30/18 00:49 97.7 101 18 140/71 (94) 98 01/30/18 00:00 100 01/29/18 20:06 98.4 115 18 146/75 (98) 97 01/29/18 20:00 119 I/O 01/29/18 01/29/18 01/29/18 01/30/18 01/30/18 01/30/18 07:00 15:00 23:00 07:00 15:00 23:00 Intake Total 200 ml 480 ml 960 ml Output Total 2 ml Balance 200 ml 478 ml 960 ml Intake Oral 200 ml 480 ml 960 ml Output Urine Total 2 ml # Voids 4 1 3 # Bowel Movements 0 1 3 Result Diagram: 01/29/18 0515 Objective Remarks GENERAL: sedated on vent support SKIN: Warm and dry. HEAD: Atraumatic. Normocephalic. EYES: Pupils equal and round. No scleral icterus. No injection or drainage. ENT: No nasal bleeding or discharge. Mucous membranes pink and moist. NECK: Trachea midline. No JVD. CARDIOVASCULAR: Regular rate and rhythm. RESPIRATORY: No accessory muscle use. Clear to auscultation. Breath sounds equal bilaterally. GASTROINTESTINAL: Abdomen soft, non-tender, nondistended. Hepatic and splenic margins not palpable. MUSCULOSKELETAL: Extremities without clubbing, cyanosis, or edema. No obvious deformities. NEUROLOGICAL: Awake and alert. No obvious cranial nerve deficits. Motor grossly within normal limits. Five out of 5 muscle strength in the arms and legs. Normal speech. PSYCHIATRIC: Appropriate mood and affect; insight and judgment normal. Assessment and Plan Assessment and Plan imp: ALERT, stable post trach removal plan O2 as needed pulm toilet PT Ileana Tejeda MD Jan 30, 2018 19:20
[2018-01-30] MEDS: ALPRAZolam 0.5 MG TAB PO PRN (21:39)
[2018-01-31] VITALS: BP 145/83; PULSE 108; PULSE 97; RESP 16; TEMP 97.9; O2SAT 97
[2018-01-31 04:00] VITALS: PULSE 94
[2018-01-31] MEDS: HEPARIN SODIUM - SQ 10,000 UNITS/ML VIAL SQ SCH ×2 (04:36→12:13)
[2018-01-31 05:41] VITALS: BP 138/67; PULSE 105; RESP 16; TEMP 97.8; O2SAT 97
[2018-01-31] MEDS: RESP: ALBUTEROL 2.5 MG/IPRATROPIUM 0.5 MG NEB (SCH) NEB ×2 (07:20→11:02)
[2018-01-31] MEDS: RESP: BUDESONIDE 0.5 MG/2 ML NEB NEB SCH (07:20)
[2018-01-31 08:00] VITALS: BP 134/73; PULSE 116; PULSE 134; RESP 16; TEMP 98.2; O2SAT 98
[2018-01-31] MEDS: CHLORHEXIDINE 0.12% (ORAL KIT) 15 ML CUP MT SCH (08:00)
[2018-01-31] MEDS: ASPIRIN 81 MG CHEW TAB CHEW SCH (08:01)
[2018-01-31] MEDS: FAMOTIDINE 20 MG TAB PO SCH (08:02)
[2018-01-31] MEDS: MULTIVITAMIN TAB PO SCH (08:02)
[2018-01-31] MEDS: METOPROLOL TARTRATE 25 MG TAB PO SCH (08:02)
[2018-01-31] MEDS: MUPIROCIN 2% OINT 1 APPLIC/GM SYR EACH NARE SCH (08:03)
[2018-01-31] MEDS: ARTIFICIAL TEARS OPTH OINT 3.5 APPLIC/3.5 GM TUBO EACH EYE SCH (08:03)
[2018-01-31] MEDS: SODIUM CHLORIDE 0.9% FLUSH 10 ML FLUSH IV FLUSH SCH ×2 (08:04→08:05)
[2018-01-31] MEDS: SODIUM CHLORIDE 0.9% FLUSH 10 ML FLUSH IV FLUSH PRN (08:05)
--- NOTE | 2018-01-31 08:56 | HHI.PR ---
Subjective Remarks alert no distress Objective Vital Signs Date Time Temp Pulse Resp B/P (MAP) Pulse Ox O2 Delivery O2 Flow Rate FiO2 01/31/18 07:30 Room Air 01/31/18 05:41 97.8 105 16 138/67 (90) 97 01/31/18 04:00 94 01/31/18 00:00 97 01/31/18 00:00 97.9 108 16 145/83 (103) 97 01/30/18 20:00 105 01/30/18 20:00 98.1 109 14 123/74 (90) 97 01/30/18 19:00 Room Air 01/30/18 16:00 97.8 107 17 146/80 (102) 96 01/30/18 16:00 105 01/30/18 12:00 98.3 116 17 116/74 (88) 95 01/30/18 12:00 118 I/O 01/30/18 01/30/18 01/30/18 01/31/18 01/31/18 01/31/18 07:00 15:00 23:00 07:00 15:00 23:00 Intake Total 960 ml Balance 960 ml Intake Oral 960 ml # Voids 3 4 # Bowel Movements 3 Result Diagram: 01/29/18 0515 Objective Remarks GENERAL: sedated on vent support SKIN: Warm and dry. HEAD: Atraumatic. Normocephalic. EYES: Pupils equal and round. No scleral icterus. No injection or drainage. ENT: No nasal bleeding or discharge. Mucous membranes pink and moist. NECK: Trachea midline. No JVD. CARDIOVASCULAR: Regular rate and rhythm. RESPIRATORY: No accessory muscle use. Clear to auscultation. Breath sounds equal bilaterally. GASTROINTESTINAL: Abdomen soft, non-tender, nondistended. Hepatic and splenic margins not palpable. MUSCULOSKELETAL: Extremities without clubbing, cyanosis, or edema. No obvious deformities. NEUROLOGICAL: Awake and alert. No obvious cranial nerve deficits. Motor grossly within normal limits. Five out of 5 muscle strength in the arms and legs. Normal speech. PSYCHIATRIC: Appropriate mood and affect; insight and judgment normal. Assessment and Plan Assessment and Plan imp: ALERT, stable post trach removal plan O2 as needed pulm toilet PT WILL SIGN OFF PLEASE CALL Ileana Aquino MD Jan 31, 2018 08:56
[2018-01-31 12:00] VITALS: PULSE 118
--- NOTE | 2018-01-31 13:00 | HHI.PR ---
Subjective Remarks Follow-up deconditioning. Patient doing better getting stronger. She is glad to know she has been accepted by [facility] discussed with nursing Objective Vitals Vital Signs Date Time Temp Pulse Resp B/P (MAP) Pulse Ox O2 Delivery O2 Flow Rate FiO2 01/31/18 12:00 118 01/31/18 08:00 98.2 116 16 134/73 (93) 98 01/31/18 08:00 134 01/31/18 07:30 Room Air 01/31/18 05:41 97.8 105 16 138/67 (90) 97 01/31/18 04:00 94 01/31/18 00:00 97 01/31/18 00:00 97.9 108 16 145/83 (103) 97 01/30/18 20:00 105 01/30/18 20:00 98.1 109 14 123/74 (90) 97 01/30/18 19:00 Room Air 01/30/18 16:00 97.8 107 17 146/80 (102) 96 01/30/18 16:00 105 I/O 01/30/18 01/30/18 01/30/18 01/31/18 01/31/18 01/31/18 06:59 14:59 22:59 06:59 14:59 22:59 Intake Total 960 ml Balance 960 ml Intake Oral 960 ml # Voids 3 4 # Bowel Movements 3 Result Diagram: 01/29/18 0515 Objective Remarks GENERAL: WN, WD female resting in bed in [facility]. SKIN: Warm and dry. HEENT: AT/NC. Pupils equal and round. MMM. NECK: Supple no tender LAD or JVD. Decannulated trach site without surrounding erythema or drainage. HEART: RRR no m/r/g. LUNGS: CTAB without wheezes or crackles. ABDOMEN: +BS, soft, NT, ND. PEG tube in place no surrounding erythema or drainage. EXTREMITIES: No LE edema. 2+ pedal pulses. NEURO: Awake and alert. Nonfocal. PSYCH: Appropriate mood and affect. Procedures JEANINE, PEG Placement, tracheostomy and subsequent removal, bronchoscopy, central line A/P Problem List: (1) Bilateral pneumonia ICD Code: J18.9 - Pneumonia, unspecified organism Status: Acute (2) Sepsis ICD Code: A41.9 - Sepsis, unspecified organism Status: Acute (3) Anxiety ICD Code: F41.9 - Anxiety disorder, unspecified Status: Chronic Assessment and Plan 47-year-old female admitted on 12/16 for severe sepsis and pneumonia that developed into ARDS requiring endotracheal intubation and ultimately prone positioning. 1. Severe sepsis/MRSA PNA/ARDs/MRSA bacteremia. Resolved status post vancomycin tolerating room air. 2. Generalized weakness/debility. Improving continue PT and OT. 3. Dysphagia/PEG tube. Resolved. Discussed with GI, discontinue PEG February 05, 2018 4. Abnormal TFTs during acute illness. Likely sick euthyroid. Repeat TSH within normal limits. Discontinue levothyroxine DVT Prophylaxis: Heparin Discharge Planning Dc when cleared by PT Problem Qualifiers (1) Sepsis: Qualified Codes: A41.9 - Sepsis, unspecified organism Case Mendez MD Jan 31, 2018 13:00
[2018-01-31] MEDS ORDERED: VENTAER INH (14:56)
--- NOTE | 2018-01-31 14:57 | HHI.DS ---
Discharge Summary Admission Date Dec 16, 2017 at 01:55 Discharge Date: Jan 31, 2018 Admitting Diagnosis Bilateral pneumonia, sepsis . (1) Bilateral pneumonia ICD Code: J18.9 - Pneumonia, unspecified organism Diagnosis: Principal Status: Acute (2) Sepsis ICD Code: A41.9 - Sepsis, unspecified organism Diagnosis: Principal Status: Acute (3) Anxiety ICD Code: F41.9 - Anxiety disorder, unspecified Diagnosis: Principal Status: Chronic Procedures JEANINE, PEG Placement, tracheostomy and subsequent removal, bronchoscopy, central line Brief History - From Admission Ms. Guzman is a 47-year-old female with a history of anxiety who presented to the emergency room and [place] complaining of chest pain and shortness of breath for 4 days duration. Chest x-ray demonstrated bilateral patchy basilar airspace consolidation most consistent with bronchopneumonia. The patient also met sepsis criteria. She was initially going to be transferred to [facility] in [place], however, due to hypoxic respiratory failure requiring BiPAP, she was transferred to [facility] in [place] and placed in ICU admitted to [facility] hospitalist group for medical management. The patient is seen in [facility] [place]. She is temporarily placed on nasal cannula and desaturates to 87 to 88% on 6 L of supplemental oxygen. She is then placed back on BiPAP. She tells me that she has been having chest pain and shortness of breath for the last 4 days. Her chest pain is worse with cough and is constantly there and moderate in severity. It does not come and go. She reports coughing up brown colored sputum which she relates to possibly being from drinking green tea. She states her shortness of breath became so severe that she presented to the emergency room for treatment. CBC/BMP: 01/29/18 0515 Significant Findings Laboratory Tests Test 01/29/18 05:15 Creatinine 0.49 MG/DL (0.50-1.00) Imaging Last Impressions Chest X-Ray 01/27/18 0600 Signed Impressions: Service Date/Time: Saturday, January 27, 2018 03:54 - CONCLUSION: No acute disease. Yomi Shipley Jr., MD Chest CT 01/10/18 0000 Signed Impressions: Service Date/Time: January 17:23 - CONCLUSION: 1. There are areas of dense consolidation in the lung bases. These have significantly improved when compared to the prior exam. 2. Scattered emphysematous blebs within the pulmonary parenchyma. 3. Small area consolidation in the right middle lobe. 4. The emphysematous blebs in the right middle lobe and left lower lobe are new. The overall appearance of the chest is improved when compared to the previous study of 12/16/17. Adam Latif MD Abdomen X-Ray 01/09/18 0000 Signed Impressions: Service Date/Time: Tuesday, January 09, 2018 17:16 - CONCLUSION: No dilated loops of small bowel. Gastrostomy in place. Yomi Lopez MD Abdomen/Pelvis CT 01/04/18 0000 Signed Impressions: Service Date/Time: Friday, January 05, 2018 00:57 - CONCLUSION: Rectal tube in good position. Some asymmetry of the renal nephrograms the left one being slightly delayed of uncertain etiology. Conceivably pyelonephritis would be within the differential on the left based on the patient's symptoms of leukocytosis. Ravinder Krause MD CT Angiography 12/16/17 0000 Signed Impressions: Service Date/Time: Saturday, December 16, 2017 13:49 - CONCLUSION: 1. Negative for pulmonary emboli. 2. Dense consolidation in the lungs especially the lung bases with several cavitary lesions as above. Findings are most characteristic of pneumonia. Cannot exclude septic embolic disease. No significant effusion. Malachi Hardin MD PE at Discharge GENERAL: WN, WD female resting in bed in NAD. SKIN: Warm and dry. HEENT: AT/NC. Pupils equal and round. MMM. NECK: Supple no tender LAD or JVD. Decannulated trach site without surrounding erythema or drainage. HEART: RRR no m/r/g. LUNGS: CTAB without wheezes or crackles. ABDOMEN: +BS, soft, NT, ND. PEG tube in place no surrounding erythema or drainage. EXTREMITIES: No LE edema. 2+ pedal pulses. NEURO: Awake and alert. Nonfocal. PSYCH: Appropriate mood and affect. Hospital Course 47-year-old female admitted on 12/16 for severe sepsis and pneumonia that developed into ARDS requiring endotracheal intubation and ultimately prone positioning. 1. Severe sepsis/MRSA PNA/ARDs/MRSA bacteremia. Resolved status post vancomycin tolerating room air. 2. Generalized weakness/debility. Improving continue PT and OT. 3. Dysphagia/PEG tube. Resolved. Discussed with GI, discontinue PEG February 05, 2018 4. Abnormal TFTs during acute illness. Likely sick euthyroid. Repeat TSH within normal limits. Discontinue levothyroxine DVT Prophylaxis: Heparin Pt Condition on Discharge: Stable Discharge Disposition: Rehab Inpatient Discharge Time: > 30 minutes Discharge Instructions DIET: Follow Instructions for: As Tolerated, No Restrictions Speech Therapy-Diet Recommends: Honey Thickened Liquids, Pureed Activities you can perform: Regular-No Restrictions Activities to Avoid: Driving Follow up Referrals: Occupational Therapy - 1 Week PCP Follow-up - 1 Week New Orders: X-RAY CHEST PA & LAT - 6 Weeks New Medications: Albuterol 18 GM Inh (Ventolin Hfa 18 GM Inh) 90 Mcg/Act Aer 2 PUFF INH Q4H PRN for SHORTNESS OF BREATH, #1 INHALER 0 Refills Aspirin (Tgt Aspirin) 81 Mg Chw 81 MG CHEW DAILY for Prevent Blood Clot, #30 EA Metoprolol Tartrate (Metoprolol Tartrate) 25 Mg Tab 12.5 MG PO Q12HR for Blood Pressure Management, #60 TAB Case Mendez MD Jan 31, 2018 14:57
== END 2018-01-31 14:19 | DRG 3 ==
LOC: PHEDDLT 12-16 01:45 → HIMW 12-16 01:55 → HIME 12-21 13:50 → N04A 01-13 17:33
PROVIDERS: ADMIT Internal Medicine; ATTEND Internal Medicine
PROC: 5A1955Z Respiratory Ventilation, Greater than 96 Consecutive Hours (ICD-10-PCS; 2017-12-16)
PROC: 0BH17EZ Insertion of Endotracheal Airway into Trachea, Via Natural or Artificial Opening (ICD-10-PCS; 2017-12-16)
PROC: 5A09357 Assistance with Respiratory Ventilation, Less than 24 Consecutive Hours, Continuous Positive Airway Pressure (ICD-10-PCS; 2017-12-16)
PROC: 0BD78ZX Extraction of Left Main Bronchus, Via Natural or Artificial Opening Endoscopic, Diagnostic (ICD-10-PCS; 2017-12-16)
PROC: 0BD38ZX Extraction of Right Main Bronchus, Via Natural or Artificial Opening Endoscopic, Diagnostic (ICD-10-PCS; 2017-12-16)
PROC: B246ZZ4 Ultrasonography of Right and Left Heart, Transesophageal (ICD-10-PCS; 2017-12-20)
PROC: 0WCQ8ZZ Extirpation of Matter from Respiratory Tract, Via Natural or Artificial Opening Endoscopic (ICD-10-PCS; 2017-12-21)
PROC: 05HN33Z Insertion of Infusion Device into Left Internal Jugular Vein, Percutaneous Approach (ICD-10-PCS; 2017-12-21)
PROC: 0B113F4 Bypass Trachea to Cutaneous with Tracheostomy Device, Percutaneous Approach (ICD-10-PCS; principal; 2017-12-30)
PROC: 0B918ZZ Drainage of Trachea, Via Natural or Artificial Opening Endoscopic (ICD-10-PCS; 2017-12-30)
PROC: 0DH63UZ Insertion of Feeding Device into Stomach, Percutaneous Approach (ICD-10-PCS; 2018-01-07)
DX: A41.02 Sepsis due to Methicillin resistant Staphylococcus aureus (principal); R65.21 Severe sepsis with septic shock; G72.81 Critical illness myopathy; G62.81 Critical illness polyneuropathy; J15.212 Pneumonia due to Methicillin resistant Staphylococcus aureus; J96.21 Acute and chronic respiratory failure with hypoxia; T17.890A Other foreign object in other parts of respiratory tract causing asphyxiation, initial encounter; R53.2 Functional quadriplegia; J98.2 Interstitial emphysema; I46.9 Cardiac arrest, cause unspecified; E87.4 Mixed disorder of acid-base balance; E87.0 Hyperosmolality and hypernatremia; E44.0 Moderate protein-calorie malnutrition; E87.1 Hypo-osmolality and hyponatremia; B37.49 Other urogenital candidiasis; R04.2 Hemoptysis; I47.1 Supraventricular tachycardia; F41.9 Anxiety disorder, unspecified; Z82.49 Family history of ischemic heart disease and other diseases of the circulatory system; E87.6 Hypokalemia; R07.89 Other chest pain; R73.9 Hyperglycemia, unspecified; R00.1 Bradycardia, unspecified; I48.0 Paroxysmal atrial fibrillation; K29.70 Gastritis, unspecified, without bleeding; E07.81 Sick-euthyroid syndrome; E83.39 Other disorders of phosphorus metabolism; Z90.710 Acquired absence of both cervix and uterus; R13.10 Dysphagia, unspecified; E87.70 Fluid overload, unspecified; G70.9 Myoneural disorder, unspecified; D64.9 Anemia, unspecified
CPT/HCPCS: 31500; 31600; 31624; 36556; 36600; 36620; 71045; 71046; 71250; 71275; 74018; 74177; 76937; 80048; 80053; 80061; 80074; 80202; 80307; 81001; 82533; 82550; 82565; 82785; 82805; 82948; 83036; 83605; 83735; 83880; 84100; 84132; 84155; 84439; 84443; 84481; 84484; 84702; 85007; 85025; 85027; 85379; 85610; 86403; 87015; 87040; 87070; 87071; 87086; 87102; 87106; 87107; 87116; 87147; 87186; 87205; 87206; 87449; 87493; 87641; 87804; 88112; 88160; 88305; 89051; 92950; 93005; 93306; 93308; 93312; 93320; 93325; 94002; 94003; 94640; 94664; 94799; 96361; 96365; 96375; 96376; A7520; A7521; J0171; J0330; J0360; J0456; J0461; J0692; J0696; J0712; J0878; J1100; J1120; J1265; J1325; J1630; J1644; J1885; J1940; J2020; J2060; J2185; J2250; J2270; J2370; J2765; J2920; J2930; J2997; J3010; J3370; J3475; J3480; J7030; J7040; J7050; J7613; J7626; P9045; P9047; Q9963; Q9967

== ENCOUNTER 2018-03-11 19:18 | Inpatient (IN) | payer OTHER ==
[~2018-03-11] VITALS: Ht 170.2 cm; Wt 59.7 kg
[~2018-03-11 19:18] MED LIST: ACET325T15 PO; ACYC800T PO; ASPI81 CHEW; CEFU1TAB20 PO; DULE200A INH; FAMO20TA2 PO; GABA100C4 PO; LACT PO; PROP10TA6 PO; RESP: ALBUTEROL 2.5 MG/IPRATROPIUM 0.5 MG NEB (PRN) INH; VENTAER INH
[2018-03-11 20:00] VITALS: BP 114/53; PULSE 132; RESP 20; TEMP 101.7; O2SAT 95
[2018-03-11] MEDS ORDERED: alprazolam PO (20:03)
[2018-03-11] MEDS ORDERED: Vancomycin Consult Pharmacy 1 EA OTHER SCH (20:45)
[2018-03-11] MEDS ORDERED: ACETAMINOPHEN 325 MG TAB PO PRN (20:45)
[2018-03-11] MEDS ORDERED: SODIUM CHLORIDE 0.9% FLUSH 10 ML FLUSH IV FLUSH PRN (20:45)
[2018-03-11] MEDS: SODIUM CHLORIDE 0.9% FLUSH 10 ML FLUSH IV FLUSH SCH (21:00)
[2018-03-11 21:30] VITALS: PULSE 114
[2018-03-11 22:18] VITALS: O2SAT 95
[2018-03-11] MEDS: RESP: ALBUTEROL 2.5 MG/IPRATROPIUM 0.5 MG NEB (SCH) INH (22:18)
[2018-03-11] MEDS: ALPRAZolam 1 MG TAB PO SCH (23:15)
[2018-03-11] MEDS: FAMOTIDINE 20 MG TAB PO SCH (23:15)
[2018-03-11] MEDS: methylPREDNISolone SOD SUCC 40 MG/1 ML VIAL IV PUSH SCH (23:15)
[2018-03-11] MEDS: HEPARIN SODIUM - SQ 10,000 UNITS/ML VIAL SQ SCH (23:16)
[2018-03-12] VITALS (11 sets, daily range): BP systolic 101–131; BP diastolic 51–63; PULSE 78–125; RESP 18–20; TEMP 96.9–98.4; O2SAT 92–99
[2018-03-12] MEDS: SODIUM CHLOR 0.9% 1000 ML INJ 1,000 ML IV SCH ×3 (00:21→16:52)
[2018-03-12] MEDS: CEFEPIME INJ 2,000 MG in SODIUM CHLORIDE 0.9% INJ 100 ML IV SCH ×3 (00:22→16:18)
[2018-03-12] MEDS: RESP: ALBUTEROL 2.5 MG/IPRATROPIUM 0.5 MG NEB (SCH) INH ×4 (03:50→20:25)
[2018-03-12] MEDS: methylPREDNISolone SOD SUCC 40 MG/1 ML VIAL IV PUSH SCH ×2 (05:16→15:06)
[2018-03-12] MEDS: HEPARIN SODIUM - SQ 10,000 UNITS/ML VIAL SQ SCH ×3 (05:16→21:14)
[2018-03-12] MEDS: VANCOMYCIN 1,000 MG/NS 250 ML IV SCH ×4 (05:16→16:51)
[2018-03-12 06:36] LABS: AUTOMATED NEUTROPHIL # 18.6 TH/MM3 (1.8-7.7); BASOPHIL % 0.1 % (0.0-2.0); EOSINOPHIL % 0.1 % (0.0-4.0); HEMATOCRIT 34.8 % (35.0-46.0); HEMOGLOBIN 11.8 GM/DL (11.6-15.3); LYMPH % 3.2 % (9.0-44.0); LYMPHOCYTE # 0.6 TH/MM3 (1.0-4.8); MEAN CORPUSCULAR HEMOGLOBIN 29.8 PG (27.0-34.0); MEAN CORPUSCULAR HGB CONC 33.8 % (32.0-36.0); MEAN PLATELET VOLUME 8.3 FL (7.0-11.0); MONO % 1.7 % (0.0-8.0); MONOCYTE # 0.3 TH/MM3 (0-0.9); NEUT % 94.9 % (16.0-70.0); PLATELET COUNT 266 TH/MM3 (150-450); RED BLOOD COUNT 3.95 MIL/MM3 (4.00-5.30); RED CELL DISTRIBUTION WIDTH 14.8 % (11.6-17.2); WHITE BLOOD COUNT 19.5 TH/MM3 (4.0-11.0)
[2018-03-12 06:51] LABS: BICARBONATE 22.7 MEQ/L (21.0-32.0)
[2018-03-12 06:54] LABS: CREATININE 0.6 MG/DL (0.50-1.00)
[2018-03-12] MEDS ORDERED: RESP: ALBUTEROL 2.5 MG/IPRATROPIUM 0.5 MG NEB (PRN) INH (07:30)
[2018-03-12] MEDS: FAMOTIDINE 20 MG TAB PO SCH ×2 (08:19→21:12)
[2018-03-12] MEDS: LACTOBACILLUS ACIDOPHILUS TAB PO SCH ×3 (08:19→16:52)
[2018-03-12] MEDS: SODIUM CHLORIDE 0.9% FLUSH 10 ML FLUSH IV FLUSH SCH ×2 (08:20→21:13)
[2018-03-12] MEDS ORDERED: XANA1TAB2 PO (10:26)
--- NOTE | 2018-03-12 11:05 | PD.PN.STU ---
Subjective Remarks HPI Ms. Guzman is a 48yo wf, recent admission pneumonia/respiratory failure, presented to ER 1 days ago with cough and fever. 6 days ago she developed a cough, scratchy throat, and head congestion. She took Mucinex and felt better until 2 days ago when she started to feel fatigued and feverish. She denies difficulty breathing, chest pain, hemoptysis, or recent weight loss. She was discharged from [facility] less than 30 days ago in her normal state of health. She denies any sick contacts. No history of breathing problems or recurrent illnesses. PMH Admitted (12/16-01/31) for pneumonia and respiratory failure that required a trach. SHx Denies tobacco, ETOH, or illicit drug use. + Second hand smoke exposure Unemployed. Currently living with a friend, prior to that she was living out of her car. with two sons (24,30) who live in [place] Objective Vitals Vital Signs Date Time Temp Pulse Resp B/P (MAP) Pulse Ox O2 Delivery O2 Flow Rate FiO2 03/12/18 08:00 97.2 97 18 101/58 (72) 94 03/12/18 04:00 98.4 78 20 113/61 (78) 96 03/12/18 03:50 95 21 03/12/18 00:00 98.0 105 20 116/51 (72) 95 03/11/18 22:18 95 21 03/11/18 21:30 114 03/11/18 20:00 101.7 132 20 114/53 (73) 95 I/O 03/11/18 03/11/18 03/11/18 03/12/18 03/12/18 03/12/18 07:00 15:00 23:00 07:00 15:00 23:00 Intake Total 1000 ml 1350 ml 120 ml Balance 1000 ml 1350 ml 120 ml Intake Oral 1000 ml 120 ml IV Total 1350 ml # Voids 2 4 # Bowel Movements 1 1 Result Diagram: 03/12/18 0535 03/12/18 0535 Other Results Laboratory Tests Test 03/12/18 05:35 White Blood Count 19.5 TH/MM3 Red Blood Count 3.95 MIL/MM3 Hemoglobin 11.8 GM/DL Hematocrit 34.8 % Mean Corpuscular Volume 88.0 FL Mean Corpuscular Hemoglobin 29.8 PG Mean Corpuscular Hemoglobin Concent 33.8 % Red Cell Distribution Width 14.8 % Platelet Count 266 TH/MM3 Mean Platelet Volume 8.3 FL Neutrophils (%) (Auto) 94.9 % Lymphocytes (%) (Auto) 3.2 % Monocytes (%) (Auto) 1.7 % Eosinophils (%) (Auto) 0.1 % Basophils (%) (Auto) 0.1 % Neutrophils # (Auto) 18.6 TH/MM3 Lymphocytes # (Auto) 0.6 TH/MM3 Monocytes # (Auto) 0.3 TH/MM3 Eosinophils # (Auto) 0.0 TH/MM3 Basophils # (Auto) 0.0 TH/MM3 CBC Comment DIFF FINAL Differential Comment Blood Urea Nitrogen 9 MG/DL Creatinine 0.60 MG/DL Random Glucose 286 MG/DL Calcium Level 9.0 MG/DL Sodium Level 139 MEQ/L Potassium Level 4.3 MEQ/L Chloride Level 108 MEQ/L Carbon Dioxide Level 22.7 MEQ/L Anion Gap 8 MEQ/L Estimat Glomerular Filtration Rate 107 ML/MIN Imaging CXR - Bibasilar infiltrates are present. No evidence of effusion cardiac contours are satisfactory and stable. Objective Remarks General - Well developed, NAD, oriented HEENT - Atraumatic, normocephalic. Pupils equal and reactive to light. No icterus. Dentition good. Mildly erythematous and swollen tonsils. Pulmonology - Equal breath sounds, no wheezes, rhonchi, or crackles. No dullness to percussion. Cardiovascular - Regular Rate and rhythm. No murmur. No JVD. No lower leg edema. Neurologic - No focal deficits. Medications and IVs Current Medications Medications (Trade) Dose Ordered Sig/Marily Route PRN Reason Start Time Stop Time Status Last Admin Dose Admin Sodium Chloride 1,000 ml @ 100 mls/hr Q10H IV 03/11/18 20:34 03/12/18 06:34 Sodium Chloride (NS Flush) 2 ml UNSCH PRN IV FLUSH FLUSH AFTER USING IV ACCESS 03/11/18 20:45 Sodium Chloride (NS Flush) 2 ml BID IV FLUSH 03/11/18 21:00 Cefepime HCl 2000 mg/Sodium Chloride 100 ml @ 200 mls/hr Q8H IV 03/12/18 00:00 03/12/18 08:19 Pharmacy Profile Note 0 ml @ 0 mls/hr UNSCH OTHER 03/11/18 20:45 Methylprednisolone Sodium Succinate (SoluMEDROL INJ) 40 mg Q8HR IV PUSH 03/11/18 22:00 03/12/18 05:16 Heparin Sodium (Porcine) (Heparin Inj) 5,000 units Q8HR SQ 03/11/18 22:00 03/12/18 05:16 Acetaminophen (Tylenol) 650 mg Q4H PRN PO fever 03/11/18 20:45 Alprazolam (Xanax) 1 mg HS PO 03/11/18 21:00 03/11/18 23:15 Famotidine (Pepcid) 20 mg BID PO 03/11/18 21:00 03/12/18 08:19 Lactobacillus Acidophilus (Lactinex) 1 tab TID PO 03/12/18 09:00 03/12/18 08:19 Vancomycin HCl 1000 mg/Sodium Chloride 250 ml @ 250 mls/hr Q12H IV 03/12/18 04:00 03/12/18 05:16 Miscellaneous Information ([facility] Ordered Lab Info) SPECIFIC LAB TO BE DRAWN:VANCOMYCIN TROUGH DATE TO... ONCE ONCE .XX 03/13/18 15:45 03/13/18 15:46 Albuterol/ Ipratropium (Duoneb Neb) 1 ampule Q6HR WHILE AWAKE NEB INH 03/12/18 08:00 03/12/18 07:40 Albuterol/ Ipratropium (Duoneb Neb) 1 ampule Q2HR NEB PRN INH SHORTNESS OF BREATH 03/12/18 07:30 A/P Assessment and Plan 48yo female presented to ER 1 day ago for cough and fever. Recent admission for pneumonia and respiratory failure that required a trach. Was on IV abx less than 90 days ago, discharged from rehab facility less than 30 days ago. 1.Pneumonia - nosocomial vs CAD WBC 19.5, trending down CXR bibasilar infiltrates Neg Influenza Pending cultures Sputum sample Stop Vancomycin Continue Cefepime Start Azithromycin Add Mucinex for cough Continue Duoneb q6h Repeat CBC DVT prophylaxis: Heparin Ivette Muhammad Mar 12, 2018 11:05 Arnol Dotson MD Mar 13, 2018 15:43
--- NOTE | 2018-03-12 11:30 | HHI.HP ---
[facility] Primary Care Physician No Primary Care Physician Admission Diagnosis Diagnoses: (1) PNA (pneumonia) Chief Complaint: Cough Travel History International Travel<30 Days: No Contact w/Intl Traveler <30 Da: No History of Present Illness 48 Y/O female with recent admission for pneumonia complicated by respiratory failure requiring intubation presented with cough and fever. Patient reports she has been doing well since her discharge from rehab on February 14. However she started to have a cough last week and later developed a fever. She tried mucinex. She presented to the emergency room because her symptoms are not improving. Workup in the emergency room consistent with pneumonia based on the imaging findings, cough and fevers. Review of Systems Constitutional: COMPLAINS OF: Fever Respiratory: COMPLAINS OF: Cough, DENIES: Wheezing, Sputum production, Shortness of breath Cardiovascular: DENIES: Chest pain Except as stated in HPI: all other systems reviewed are Neg Past Family Social History Past Medical History Recent pneumonia resulting in respiratory failure requiring intubation ?COPD Past Surgical History Hysterectomy Reported Medications Reported Meds & Active Scripts Active Famotidine 20 Mg Tab 20 Mg PO BID Propranolol (Propranolol HCl) 10 Mg Tab 10 Mg PO Q8HR Ventolin Hfa 18 GM Inh (Albuterol Sulfate) 90 Mcg/Act Aer 2 Puff INH Q4H PRN Reported Xanax (Alprazolam) 1 Mg Tab 1 Mg PO HS PRN Dulera 120 Act Inh (Mometasone-Formoterol 120 Act Inh) 200-5 Mcg/Act Inh 2 Puff INH BID Allergies: Coded Allergies: No Known Allergies (Verified Allergy, Unknown, 03/11/18) Social History Patient denies ever smoking but admits to prolonged second hand exposure from both parents. Physical Exam Vital Signs Vital Signs Date Time Temp Pulse Resp B/P (MAP) Pulse Ox O2 Delivery O2 Flow Rate FiO2 03/12/18 08:00 97.2 97 18 101/58 (72) 94 03/12/18 04:00 98.4 78 20 113/61 (78) 96 03/12/18 03:50 95 21 03/12/18 00:00 98.0 105 20 116/51 (72) 95 03/11/18 22:18 95 21 03/11/18 21:30 114 03/11/18 20:00 101.7 132 20 114/53 (73) 95 Physical Exam GENERAL: This is a well-nourished, well-developed patient, in no apparent distress. CARDIOVASCULAR: Normal rate and regular rhythm without murmurs, gallops, or rubs. RESPIRATORY: Good respiratory efforts. Diminished breath sounds at the bases otherwise clear to auscultation. GASTROINTESTINAL: Abdomen soft, non-tender, non-distended. Normal active bowel sounds MUSCULOSKELETAL: Extremities without cyanosis, or edema. NEURO: Alert & Oriented x4 to person, place, time, situation. Moves all ext x4 PSYCH: Appropriate mood and affect. Laboratory Laboratory Tests Test 03/12/18 05:35 White Blood Count 19.5 Red Blood Count 3.95 Hemoglobin 11.8 Hematocrit 34.8 Mean Corpuscular Volume 88.0 Mean Corpuscular Hemoglobin 29.8 Mean Corpuscular Hemoglobin Concent 33.8 Red Cell Distribution Width 14.8 Platelet Count 266 Mean Platelet Volume 8.3 Neutrophils (%) (Auto) 94.9 Lymphocytes (%) (Auto) 3.2 Monocytes (%) (Auto) 1.7 Eosinophils (%) (Auto) 0.1 Basophils (%) (Auto) 0.1 Neutrophils # (Auto) 18.6 Lymphocytes # (Auto) 0.6 Monocytes # (Auto) 0.3 Eosinophils # (Auto) 0.0 Basophils # (Auto) 0.0 CBC Comment DIFF FINAL Differential Comment Blood Urea Nitrogen 9 Creatinine 0.60 Random Glucose 286 Calcium Level 9.0 Sodium Level 139 Potassium Level 4.3 Chloride Level 108 Carbon Dioxide Level 22.7 Anion Gap 8 Estimat Glomerular Filtration Rate 107 Result Diagram: 03/12/18 0535 03/12/18 0535 Caprini VTE Risk Assessment Caprini VTE Risk Assessment: Mod/High Risk (score >= 2) Caprini Risk Assessment Model Point Value = 1 Point Value = 2 Point Value = 3 Point Value = 5 Age 41-60 Minor surgery BMI > 25 kg/m2 Swollen legs Varicose veins or History of unexplained or recurrent spontaneous Oral contraceptives or hormone replacement Sepsis (< 1 month) Serious lung disease, including pneumonia (< 1 month) Abnormal pulmonary function Acute myocardial infarction Congestive heart failure (< 1 month) History of inflammatory bowel disease Medical patient at bed rest Age 61-74 Arthroscopic surgery Major open surgery (> 45 min) Laparoscopic surgery (> 45 min) Malignancy Confined to bed (> 72 hours) Immobilizing plaster cast Central venous access Age >= 75 History of VTE Family history of VTE Factor V Leiden Prothrombin [id number] Lupus anticoagulant Anticardiolipin antibodies Elevated serum homocysteine Heparin-induced thrombocytopenia Other congenital or acquired thrombophilia Stroke (< 1 month) Elective arthroplasty Hip, pelvis, or leg fracture Acute spinal cord injury (< 1 month) Prophylaxis Regimen Total Risk Factor Score Risk Level Prophylaxis Regimen 0-1 Low Early ambulation 2 Moderate Order ONE of the following: *Sequential Compression Device (SCD) *Heparin 5000 units SQ BID 3-4 Higher Order ONE of the following medications: *Heparin 5000 units SQ TID *Enoxaparin/Lovenox 40 mg SQ daily (WT < 150 kg, CrCl > 30 mL/min) *Enoxaparin/Lovenox 30 mg SQ daily (WT < 150 kg, CrCl > 10-29 mL/min) *Enoxaparin/Lovenox 30 mg SQ BID (WT < 150 kg, CrCl > 30 mL/min) AND/OR *Sequential Compression Device (SCD) 5 or more Highest Order ONE of the following medications: *Heparin 5000 units SQ TID (Preferred with Epidurals) *Enoxaparin/Lovenox 40 mg SQ daily (WT < 150 kg, CrCl > 30 mL/min) *Enoxaparin/Lovenox 30 mg SQ daily (WT < 150 kg, CrCl > 10-29 mL/min) *Enoxaparin/Lovenox 30 mg SQ BID (WT < 150 kg, CrCl > 30 mL/min) AND *Sequential Compression Device (SCD) Assessment and Plan Problem List: (1) Pneumonia ICD Code: J18.9 - Pneumonia, unspecified organism Status: Acute Plan: Patient with recent admission complicated by respiratory failure requiring intubation. She was discharged from [facility] on February 14 and has been doing well outpatient. Continue treatment with antibiotics. She is to cefepime and azithromycin. Follow blood cultures Follow WBC Breathing treatments as needed Supplemental oxygen as needed (2) Hyperglycemia ICD Code: R73.9 - Hyperglycemia, unspecified Plan: Could be due to steroids started in the ED. Sliding scale insulin with Accu-Cheks. Check hemoglobin A1c Discussed Condition With Patient and Ivette MS4 Physician Certification 2 Midnight Certification Type: Admission for Inpatient Services Order for Inpatient Services The services are ordered in accordance with Medicare regulations or non- Medicare payer requirements, as applicable. In the case of services not specified as inpatient-only, they are appropriately provided as inpatient services in accordance with the 2-midnight benchmark. Estimated LOS (days): 3 days is the estimated time the patient will need to remain in the hospital, assuming treatment plan goals are met and no additional complications. Post-Hospital Plan: Home Problem Qualifiers (1) Pneumonia: Arnol Dotson MD Mar 12, 2018 11:30
[2018-03-12] MEDS: AZITHROMYCIN 250 MG TAB PO SCH (17:12)
[2018-03-12] MEDS ORDERED: DEXTROSE 50% IN WATER 50 ML VIAL(D50) IV PUSH PRN (17:15)
[2018-03-12] MEDS ORDERED: GLUCAGON 1 MG/ML VIAL OTHER PRN (17:15)
[2018-03-12] MEDS ORDERED: BENZONATATE 100 MG CAP PO PRN (18:30)
[2018-03-12] MEDS: ALPRAZolam 1 MG TAB PO SCH (21:13)
[2018-03-12] MEDS: INSULIN ASPART SUPPLEMENTAL SCALE SQ SCH (21:17)
[2018-03-13] VITALS: BP 120/67; PULSE 104; RESP 20; TEMP 97.5; O2SAT 96
[2018-03-13] MEDS: CEFEPIME INJ 2,000 MG in SODIUM CHLORIDE 0.9% INJ 100 ML IV SCH ×2 (00:38→07:40)
[2018-03-13 04:00] VITALS: BP 114/60; PULSE 99; RESP 20; TEMP 96.6; O2SAT 96
[2018-03-13] MEDS: HEPARIN SODIUM - SQ 10,000 UNITS/ML VIAL SQ SCH (05:41)
[2018-03-13 06:42] LABS: HEMATOCRIT 34.2 % (35.0-46.0); HEMOGLOBIN 11.6 GM/DL (11.6-15.3); MEAN CELL VOLUME 90.3 FL (80.0-100.0); MEAN CORPUSCULAR HEMOGLOBIN 30.5 PG (27.0-34.0); MEAN CORPUSCULAR HGB CONC 33.8 % (32.0-36.0); MEAN PLATELET VOLUME 8.4 FL (7.0-11.0); PLATELET COUNT 302 TH/MM3 (150-450); RED BLOOD COUNT 3.79 MIL/MM3 (4.00-5.30); RED CELL DISTRIBUTION WIDTH 14.2 % (11.6-17.2); WHITE BLOOD COUNT 22.4 TH/MM3 (4.0-11.0)
[2018-03-13 06:57] LABS: CALCIUM 9.1 MG/DL (8.5-10.1)
[2018-03-13 06:58] LABS: BICARBONATE 22.9 MEQ/L (21.0-32.0)
[2018-03-13 07:01] LABS: CREATININE 0.59 MG/DL (0.50-1.00)
[2018-03-13 07:35] VITALS: O2SAT 97
[2018-03-13] MEDS: RESP: ALBUTEROL 2.5 MG/IPRATROPIUM 0.5 MG NEB (SCH) INH (07:35)
[2018-03-13 07:37] VITALS: BP 114/62; PULSE 95; RESP 20; TEMP 96.6; O2SAT 97
[2018-03-13 08:00] VITALS: PULSE 95
[2018-03-13] MEDS: INSULIN ASPART SUPPLEMENTAL SCALE SQ SCH (08:03)
[2018-03-13] MEDS: SODIUM CHLORIDE 0.9% FLUSH 10 ML FLUSH IV FLUSH SCH (09:51)
[2018-03-13] MEDS: LACTOBACILLUS ACIDOPHILUS TAB PO SCH (09:51)
[2018-03-13] MEDS: FAMOTIDINE 20 MG TAB PO SCH (09:51)
[2018-03-13] MEDS: AZITHROMYCIN 250 MG TAB PO SCH (09:51)
[2018-03-13] MEDS ORDERED: AZIT250T3 PO (10:21)
[2018-03-13] MEDS ORDERED: CEFU1TAB20 PO (10:21)
--- NOTE | 2018-03-13 10:23 | HHI.DCPOC ---
Discharge Care Plan Diagnosis: (1) Pneumonia (2) Hyperglycemia Goals to Promote Your Health * To prevent worsening of your condition and complications * To maintain your health at the optimal level Directions to Meet Your Goals Take your medications as prescribed Follow your dietary instruction Follow activity as directed Keep your appointments as scheduled Take your immunizations and boosters as scheduled If your symptoms worsen call your PCP, if no PCP go to Urgent Care Center or Emergency Room Smoking is Dangerous to Your Health. Avoid second hand smoke Call the 24-hour hour crisis hotline for domestic abuse at Arnol Dotson MD Mar 13, 2018 10:23
--- NOTE | 2018-03-13 10:24 | HHI.PR ---
Subjective Remarks Patient reports she is feeling much better. She feels great to go home. Coughing much less. Denies shortness of breath. She has a follow-up appointment with PCP tomorrow. Objective Vitals Vital Signs Date Time Temp Pulse Resp B/P (MAP) Pulse Ox O2 Delivery O2 Flow Rate FiO2 03/13/18 07:37 96.6 95 20 114/62 (79) 97 03/13/18 04:00 96.6 99 20 114/60 (78) 96 03/13/18 00:00 97.5 104 20 120/67 (84) 96 03/12/18 20:25 97 21 03/12/18 20:02 101 03/12/18 20:00 97.5 105 20 121/63 (82) 96 03/12/18 16:32 117 03/12/18 16:00 96.9 125 20 131/58 (82) 99 03/12/18 12:00 97.8 107 19 118/60 (79) 95 I/O 03/12/18 03/12/18 03/12/18 03/13/18 03/13/18 03/13/18 07:00 15:00 23:00 07:00 15:00 23:00 Intake Total 1350 ml 120 ml 2530 ml 220 ml Output Total 600 ml Balance 1350 ml 120 ml 1930 ml 220 ml Intake Oral 120 ml 1140 ml 120 ml IV Total 1350 ml 1390 ml 100 ml Output Urine Total 600 ml # Voids 4 2 # Bowel Movements 1 3 1 Result Diagram: 03/13/18 0535 03/13/18 0535 Objective Remarks GENERAL: This is a well-nourished, well-developed patient, in no apparent distress. CARDIOVASCULAR: Normal rate and regular rhythm without murmurs, gallops, or rubs. RESPIRATORY: Good respiratory efforts. Diminished breath sounds at the bases, otherwise clear to auscultation bilaterally. GASTROINTESTINAL: Abdomen soft, non-tender, non-distended. Normal active bowel sounds MUSCULOSKELETAL: Extremities without cyanosis, or edema. NEURO: Alert & Oriented x4 to person, place, time, situation. Moves all ext x4 PSYCH: Appropriate mood and affect. A/P Problem List: (1) Pneumonia ICD Code: J18.9 - Pneumonia, unspecified organism Status: Acute Plan: Patient with recent admission complicated by respiratory failure requiring intubation. She was discharged from [facility] on February 14 and has been doing well outpatient. Patient treated with cefepime and azithromycin. Her symptoms significantly improved. She has not required any supplemental oxygen and is feeling well. Clinically appear well on exam. She can be discharged home to continue treatment outpatient on oral antibiotics. She is discharged on cefuroxime and azithromycin. The patient has a follow-up appointment with PCP tomorrow. WBC noted and is likely due to steroids. She looks great on exam. Concern that the patient may also have some early COPD. No history of tobacco use. She does have a follow-up appointment with pulmonology. Advised the patient to keep the appointment and to continue home dose inhalers. (2) Hyperglycemia ICD Code: R73.9 - Hyperglycemia, unspecified Plan: Per patient, her blood glucose always go up when she is on steroids. She does have outpatient follow up. She may have diabetes. I counseled her on a diabetic diet and to follow-up outpatient with PCP. hemoglobin A1c was ordered. However it is worth noting that she was in the hospital for the past month also and has been getting steroids on and off. DW patient to follow up outpatient with PCP. Meanwhile she needs to stay on a diabetic diet. No indication to continue steroids at this point. Discharge Planning Discharge home in good condition Activity: Regular as tolerated Diet: Diabetic Meds: Per med rec Follow-up: With PCP and pulmonology Problem Qualifiers (1) Pneumonia: Arnol Dotson MD Mar 13, 2018 10:24
[2018-03-13] MEDS ORDERED: BENZ100 PO (10:35)
[2018-03-13 11:19] VITALS: BP 118/64; PULSE 91; RESP 20; TEMP 96.2; O2SAT 97
[2018-03-13] MEDS ORDERED: PHARMACY ORDERED LAB ONE (15:45)
== END 2018-03-13 13:12 | disposition home or self-care (01) | DRG 195 ==
LOC: PHEDDLT 19:18 → PH3A 19:19
PROVIDERS: ADMIT Family Medicine; ATTEND Family Medicine
DX: J18.9 Pneumonia, unspecified organism (principal); R06.02 Shortness of breath; R73.9 Hyperglycemia, unspecified; Z90.710 Acquired absence of both cervix and uterus; Z77.22 Contact with and (suspected) exposure to environmental tobacco smoke (acute) (chronic); Z87.01 Personal history of pneumonia (recurrent); R05 Cough
CPT/HCPCS: 80048; 82948; 85025; 85027; 87070; 87205; 94640; 94664; J0692; J1644; J1815; J2920; J3370; J7030; J7050